=== PATIENT | female | born 1945 | race Caucasian/White ===

== ENCOUNTER → 2017-04-28 16:49 | Outpatient (CLI) | payer MEDICARE, OTHER, SELFPAY ==
[2017-04-28 18:41] LABS: ALB/GLOB Ratio 0.9 RATIO (0.9-2.4); AST(SGOT) 14 U/L (15-37); Alanine Aminotransfer ALT/SGPT 20 U/L (13-56); Albumin, Serum 3.3 g/dL (3.2-5.0); Alkaline Phosphatase 59 U/L (45-117); Anion Gap 10 (5-15); BUN 49 mg/dL (7-18); BUN/Creat Ratio 30.2 RATIO (10-20); Chloride 107 mmol/L (98-107); Creatinine, Serum 1.62 mg/dL (0.55-1.02); EST Glomerular Filtration Rate 33 mL/min (>60); Est Glom Filt Rate - Afr Amer 40 mL/min (>60); Globulin 3.5 g/dL (2.2-4.2); Glucose 83 mg/dL (74-106); Potassium 4.4 mmol/L (3.5-5.1); Protein, Total 6.8 g/dL (6.4-8.2); Sodium Level 144 mmol/L (136-145); Thyroid Stim Hormone (TSH) 2.14 uIU/mL (0.358-3.74)
== END ==
PROVIDERS: Family Provider Family Medicine; PCP Family Medicine; Visit Provider Family Medicine
DX: R60.9 Edema, unspecified (principal); E03.9 Hypothyroidism, unspecified
CPT/HCPCS: 36415; 80053; 84443

== ENCOUNTER → 2017-05-19 11:08 | Outpatient (CLI) | payer MEDICARE, OTHER, SELFPAY ==
[2017-05-19 12:48] LABS: Hematocrit 37.6 % (37-47); Hemoglobin 12.2 g/dl (12.0-15.0); Mean Corp Hgb Conc 32.4 g/gl (32-36); Mean Corpuscular Hgb 30.7 pg (27.0-32.0); Mean Corpuscular Volume 94.5 fL (81-99); Platelet Count 195 K/mm3 (150-450); RBC Distribution Width CV 12.8 % (11.6-14.6); Red Blood Count 3.98 M/mm3 (4.2-5.4); White Blood Count 7.9 K/mm3 (4.4-11.0)
[2017-05-19 12:56] LABS: Albumin, Serum 3.5 g/dL (3.2-5.0); BUN 57 mg/dL (7-18); BUN/Creat Ratio 28.9 RATIO (10-20); Calcium,Total 9.3 mg/dL (8.5-10.1); Chloride 101 mmol/L (98-107); Creatinine, Serum 1.97 mg/dL (0.55-1.02); EST Glomerular Filtration Rate 26 mL/min (>60); Est Glom Filt Rate - Afr Amer 32 mL/min (>60); Glucose 90 mg/dL (74-106); Potassium 3.9 mmol/L (3.5-5.1); Scan Indicated on CBC? Y/N NO; Sodium Level 141 mmol/L (136-145)
[2017-05-19 13:01] LABS: Vitamin D,25 Hydroxy 58.1 ng/mL (29.95-100.01)
[2017-05-19 14:02] LABS: PTHIN 41.9 pg/mL (18.4-80.1)
[2017-05-19 21:19] LABS: Protein:Creat Ratio 95 mg/g CRE (0-200)
== END ==
PROVIDERS: Family Provider Family Medicine; PCP Family Medicine; Visit Provider Internal Medicine Nephrology
DX: N18.3 Chronic kidney disease, stage 3 (moderate) (principal)
CPT/HCPCS: 36415; 80069; 82306; 82570; 83970; 84156; 85027

== ENCOUNTER → 2017-06-10 09:32 | Outpatient (CLI) | payer MEDICARE, OTHER, SELFPAY ==
[2017-06-10 10:39] LABS: Anion Gap 9 (5-15); BUN 31 mg/dL (7-18); BUN/Creat Ratio 20.4 RATIO (10-20); Chloride 104 mmol/L (98-107); Creatinine, Serum 1.52 mg/dL (0.55-1.02); EST Glomerular Filtration Rate 36 mL/min (>60); Est Glom Filt Rate - Afr Amer 43 mL/min (>60); Glucose 136 mg/dL (74-106); Potassium 4.4 mmol/L (3.5-5.1); Sodium Level 142 mmol/L (136-145)
== END ==
PROVIDERS: Family Provider Family Medicine; PCP Family Medicine; Visit Provider Internal Medicine Nephrology
DX: N18.3 Chronic kidney disease, stage 3 (moderate) (principal); D32.9 Benign neoplasm of meninges, unspecified
CPT/HCPCS: 36415; 80048

== ENCOUNTER → 2017-06-28 10:02 | Outpatient (CLI) | payer MEDICARE, OTHER, SELFPAY ==
[2017-06-28 11:08] LABS: Anion Gap 9 (5-15); BUN 29 mg/dL (7-18); BUN/Creat Ratio 19.1 RATIO (10-20); Calcium,Total 9.3 mg/dL (8.5-10.1); Chloride 108 mmol/L (98-107); Creatinine, Serum 1.52 mg/dL (0.55-1.02); EST Glomerular Filtration Rate 36 mL/min (>60); Est Glom Filt Rate - Afr Amer 43 mL/min (>60); Glucose 126 mg/dL (74-106); Sodium Level 145 mmol/L (136-145)
== END ==
PROVIDERS: Family Provider Family Medicine; PCP Family Medicine; Visit Provider Internal Medicine Nephrology
DX: N18.3 Chronic kidney disease, stage 3 (moderate) (principal)
CPT/HCPCS: 36415; 80048

== ENCOUNTER → 2017-07-06 12:42 | Outpatient (CLI) | payer MEDICARE, OTHER, SELFPAY ==
--- NOTE | 2017-07-06 12:51 | MRI_ITS ---
STUDY: MRI BRAIN WITH AND WITHOUT CONTRAST REASON FOR EXAM: Female, 72 years old. Tumor check-up, gamma knife 12/03/17, no new comlpaints. TECHNIQUE: Standardized multiplanar fat and water weighted pulse sequences were obtained. 9 ml of Gadavist contrast material was administered intravenously for the contrast portion of the examination. COMPARISON: October 22, 2016 FINDINGS: Normal size of the ventricles and extra-axial spaces for the patient's age. There are multiple white matter hyperintensities, distributed throughout the deep white matter tracts of the cerebral hemispheres, consistent with moderate chronic white matter ischemic changes. Normal bilateral basal ganglia. Normal thalami. There is no extra-axial fluid accumulation. Normal flow voids within the major intracranial circulation suggesting patency by spin echo criteria. Normal venous enhancement. Again noted is a the right CP angle/trigeminal cave enhancing mass without change since the prior examination, most consistent with meningioma. There is mild mass effect on the adjacent nate. There is no edema. Normal sella turcica, pituitary gland, infundibular stalk, optic chiasm and hypothalamus. Normal tectal plate and pineal gland. There are chronic white matter ischemic changes of the nate. The midbrain and medulla are otherwise normal. Normal cerebellum. Normal basal cisterns. Normal bilateral temporal bones. Normal bilateral internal auditory canals. MRI/Brain W/WO Contrast IMPRESSION: Stable right CP angle/Meckel's cave likely meningioma. Electronically Signed: Domenic Padilla MD at 13:10 EDT Tel , Service support ,
== END ==
PROVIDERS: Family Provider Family Medicine; PCP Family Medicine
DX: D32.9 Benign neoplasm of meninges, unspecified (principal)
CPT/HCPCS: 70553; A9585

== ENCOUNTER 2017-07-25 18:51 | Emergency (ER) | payer MEDICARE, OTHER, SELFPAY ==
[2017-07-25 18:52] VITALS: BP 127/83; PULSE 96; RESP 16; TEMP 36.8; O2SAT 95; BMI 27.9
--- NOTE | 2017-07-25 19:32 | CT_ITS ---
STUDY: CT BRAIN WITHOUT CONTRAST REASON FOR EXAM: Female, 72 years old. Fall RADIATION DOSAGE (If Supplied By Facility): CTDIvol = ( 44.99 ) mGy, DLP = ( 796.11 ) mGycm TECHNIQUE: Transaxial CT imaging of the brain was performed without administration of intravenous contrast material. Individualized dose optimization techniques were used for this CT. COMPARISON: MRI dated 07/06/2017 FINDINGS: There is no acute bleed or infarct. There are stable chronic ischemic and atrophic changes. There are basal ganglia calcifications noted. The ventricles are normal in configuration. There is no hydrocephalus. The visualized paranasal sinuses are clear. The mastoid air cells are well aerated. There is no skull fracture. There is mild scalp soft tissue swelling in the left posterior parietal region. CT/Brain/Head without Contrast IMPRESSION: Stable chronic ischemic and atrophic changes. No acute intracranial abnormality. Mild scalp soft tissue swelling in the left posterior parietal region. Electronically Signed: Carlos Salcedo, at 20:15 EDT Tel , Service support ,
[2017-07-25 19:54] LABS: Absolute Lymphocyte Count 1.27 X10^3/ul (0.83-4.51); Absolute Neutrophil Count 8.1 X10^3/uL (2.0-7.7); Basophil# 0.02 X10^3/uL; Basophil% 0.2 % (0-1); Eosinophil# 0.14 X10^3/uL; Eosinophils% 1.3 % (0-5); Hematocrit 38.2 % (37-47); Hemoglobin 12.7 g/dl (12.0-15.0); Lymphocyte # 1.27 X10^3/ul (4.0); Lymphocyte % 12.2 % (19-41); Mean Corp Hgb Conc 33.2 g/gl (32-36); Mean Corpuscular Hgb 30.5 pg (27.0-32.0); Mean Corpuscular Volume 91.6 fL (81-99); Mean Platelet Vol. 10.7 fl (6.2-12.0); Monocyte% 8.6 % (0-10); Neutrophil # 8.06 X10^3/uL (2.7-7.7); Neutrophil % 77.5 % (47-70); POSITIVE COUNT NO; POSITIVE DIFFERENTIAL NO; POSITIVE MORPHOLOGY NO; Platelet Count 144 K/mm3 (150-450); RBC Distribution Width CV 13.5 % (11.6-14.6); RBC Distribution Width SD 44.3 fl (35.1-43.9); Red Blood Count 4.17 M/mm3 (4.2-5.4); White Blood Count 10.4 K/mm3 (4.4-11.0)
[2017-07-25 20:02] LABS: Anion Gap 9 (5-15); BUN 39 mg/dL (7-18); BUN/Creat Ratio 25.7 RATIO (10-20); Calcium,Total 9.4 mg/dL (8.5-10.1); Chloride 103 mmol/L (98-107); Creatinine, Serum 1.52 mg/dL (0.55-1.02); EST Glomerular Filtration Rate 36 mL/min (>60); Est Glom Filt Rate - Afr Amer 43 mL/min (>60); Estimated Creatinine Clearance 32.76 ml/min; Glucose 89 mg/dL (74-106); Potassium 3.9 mmol/L (3.5-5.1); Sodium Level 140 mmol/L (136-145)
[2017-07-25 20:11] VITALS: BP 112/65; BP 133/80; BP 154/71; PULSE 102; PULSE 103; PULSE 97
--- NOTE | 2017-07-25 20:18 | ED.DCSUM_ITS ---
- ER Visit Summary Date of Service: 07/25/17 Chief Complaint: Fall and head injury on Plavix History of Present Illness: The patient is a 72 F history of insulin-dependent diabetes, CAD with cardiac stent and known renal insufficiency and known meningioma. Next field patient was in her kitchen on Wednesday fell hit her head on the counter. No LOC. She was not evaluated that time. She states she did not have a syncopal event. She also hit her right great toe when she fell. And right shoulder. Physical Examination: Well-appearing older female. Vital signs are stable afebrile. H EENT exam pupils round reactive light. No signs of facial trauma. Posterior midline of her scalp there is a laceration with dried blood. It is not actively bleeding. Minimally tender. Currently there is no significant hematoma but reportedly per the patient there was. C-spine nontender. Trachea midline. Full range of motion to her neck. Lungs clear to auscultation bilaterally. Heart regular rate and rhythm no murmur. Rate in 90s. Chest wall nontender. Abdomen soft nontender. Pelvic girdle intact. She is moving all 4 extremities. They are neurovascularly intact. Specifically the right clavicle and shoulder are nontender with normal range of motion. No deformity or tenderness. The right elbow and wrist and hand are nontender neurovascularly intact. Her right great toe is small bruising with a healing superficial laceration. There is no gross bony deformity or significant tenderness. Both lower extremities are neurovascularly intact without gross deformities otherwise. Back exam nontender. The cervical, thoracic and lumbar spine are nontender. Neurologically she is awake and alert. GCS of 15. NIH is 0. Test Results: CT of her brain shows no acute abnormality. No fracture nor intracranial bleed. As read by the radiologist reviewed by me. CBC was normal with an H&H of 12 and 38. Her platelet count was slightly low at 144,000 which I discussed and she can follow-up. Electrolytes are unremarkable. She has chronic renal insufficiency with a creatinine 1.52 similar to prior chemistry panels. Orthostatic vital signs her blood pressure did drop but she was completely asymptomatic. Nurses also ambulated patient and she did well. Emergency Department Course and Treatment: Repeat exam patient is doing well at 1945. Once her CAT scan reading returns she will be discharged. Treatment Plan: Follow up with her primary care physician as needed. Disposition: Discharge Impression: Acute fall with closed head injury on Plavix Posterior scalp laceration healing. Right great toe contusion This note was generated with [employer] dictation software. It may contain incorrect words, spelling, and punctuation that were not noted in review of the chart prior to signing ED Disposition - Plan for ED Patient: Chief Complaint: Fall Referrals: Twan Coy MD [Primary Care Provider] -
--- NOTE | 2017-07-25 20:18 | ED.DEP ---
ED Disposition - Plan for ED Patient: Disposition: Home or Assisted Living Chief Complaint: Fall Instructions: ED Head Injury Closed Referrals: Twan Coy MD [Primary Care Provider] - 3-5 Days if not improving Additional Instructions: Labs today were basically unremarkable except for a platelet count of 144,000. That is just below normal. You can have that rechecked in several weeks. Follow-up your primary care physician as needed.
[2017-07-25 20:55] VITALS: BP 163/77; PULSE 95; RESP 16; O2SAT 95
== END 2017-07-25 21:00 | disposition home or self-care (01) ==
PROVIDERS: Emergency Provider Emergency Medicine; Family Provider Family Medicine; PCP Family Medicine
DX: S01.01XA Laceration without foreign body of scalp, initial encounter (principal); S90.111A Contusion of right great toe without damage to nail, initial encounter; S91.111A Laceration without foreign body of right great toe without damage to nail, initial encounter; R40.2410 Glasgow coma scale score 13-15, unspecified time; W19.XXXA Unspecified fall, initial encounter; Y93.9 Activity, unspecified; Y92.89 Other specified places as the place of occurrence of the external cause; I25.10 Atherosclerotic heart disease of native coronary artery without angina pectoris; D32.9 Benign neoplasm of meninges, unspecified; E11.22 Type 2 diabetes mellitus with diabetic chronic kidney disease; I12.9 Hypertensive chronic kidney disease with stage 1 through stage 4 chronic kidney disease, or unspecified chronic kidney disease; N18.3 Chronic kidney disease, stage 3 (moderate); Z95.5 Presence of coronary angioplasty implant and graft; Z90.710 Acquired absence of both cervix and uterus; Z90.722 Acquired absence of ovaries, bilateral; Z79.02 Long term (current) use of antithrombotics/antiplatelets; Z79.4 Long term (current) use of insulin; Z79.899 Other long term (current) drug therapy
CPT/HCPCS: 70450; 80048; 85025; 99284; A4216

== ENCOUNTER → 2017-07-30 09:28 | Outpatient (CLI) | payer MEDICARE, OTHER, SELFPAY ==
--- NOTE | 2017-07-30 09:28 | DT_ITS ---
This patient was seen during an EMR downtime July 26, 2017 - August 02, 2017. This patient may have a combination of paper and electronic documentation or all paper documentation. All documentation is viewable within the e-chart portion of [facility] for each patient visit.
[2017-07-30 11:14] LABS: Erythrocyte Sedimentation Rate 13 mm/hr (0-30)
[2017-07-30 14:49] LABS: Rheumatoid Factor < 10.0 IU/mL (<15); Thyroid Stim Hormone (TSH) 3.66 uIU/mL (0.358-3.74)
[2017-08-02 10:07] LABS: HIV - WCH Non-Reactive (Nonreactive); Vitamin B12 637 pg/mL (211-911)
[2017-08-06 16:11] LABS: Immunoglobulin A 218 mg/dL (64-422); Immunoglobulin G 683 mg/dL (700-1600); Immunoglobulin M 67 mg/dL (26-217); PROEL- A/G Ratio 1.1 (0.7-1.7); PROEL- Albumin 3.3 g/dL (2.9-4.4); PROEL- Alpha-1 Globulin 0.2 g/dL (0.0-0.4); PROEL- Alpha-2 Globulin 0.9 g/dL (0.4-1.0); PROEL- Gamma Globulin 0.7 g/dL (0.4-1.8); PROEL- Globulin, Total 2.9 g/dL (2.2-3.9); PROEL- TOTAL PROTEIN 6.2 g/dL (6.0-8.5)
[2017-08-06 18:18] LABS: Hep C Antibodies 0.1 s/co ratio (0.0-0.9)
== END ==
PROVIDERS: Family Provider Family Medicine; PCP Family Medicine; Visit Provider Psychiatry & Neurology Neurology
DX: D32.9 Benign neoplasm of meninges, unspecified (principal); G50.0 Trigeminal neuralgia; G62.9 Polyneuropathy, unspecified
CPT/HCPCS: 36415; 82607; 82746; 82784; 84165; 84443; 85652; 86038; 86235; 86334; 86431; 86703; 86803

== ENCOUNTER 2017-09-13 03:12 | Emergency (ER) | payer MEDICARE, OTHER, SELFPAY ==
[2017-09-13 03:13] VITALS: BP 148/61; PULSE 80; RESP 18; TEMP 36.6; O2SAT 96; BMI 35.4
--- NOTE | 2017-09-13 03:20 | ED.DCSUM_ITS ---
- ER Visit Summary Date of Service: 09/13/17 Chief Complaint: Left wrist injury History of Present Illness: The patient is a 72 F presents to the emergency department left wrist injury. Patient was in her normal state of health. She was going to bed tonight. She thought that she was sitting on the bed, but was too far away. She ended up falling. She fell onto the wall and caught herself with an outstretched left wrist. She had immediate pain and noticed deformity. She did not strike her head. She denies other injury. Squad arrived and placed in a vacuum splint. She was brought here for further evaluation. Physical Examination: Afebrile, vitals unremarkable. Well-appearing female no acute distress. GCS 15. Examination of the left wrist: Patient does have abrasion over the ulnar styloid. There is no skin tenting. There is no evidence of open fracture. Pulses are normal. There is deformity. Anterior interosseous, posterior interosseous, ulnar nerve are preserved. Test Results: [] Emergency Department Course and Treatment: The patient did have obvious deformity of the left wrist. IV was established. She was given analgesics and antiemetics. X-ray does confirm distal radius fracture that is dorsally displaced and shortened. The patient underwent hematoma block with bupivacaine. Once anesthesia was achieved, I was able to reduce the fracture as best as I could. There did seem to be small fragments of her preventing complete reduction. However, the fracture was not out to length. The patient was placed in an AP splint and was very comfortable. Patient was discussed with orthopedics that she is likely going to need operative fixation. I did automobile club travel counselor her on signs and symptoms of compartment syndrome and reasons to return. She will be discharged home with analgesics and orthopedic follow-up. Treatment Plan: [] Disposition: Discharge Impression: 1. Distal radius fracture of the left wrist 2. Hematoma block 3. Fracture reduction 4. Splint by ED physician This note was generated with [employer] dictation software. It may contain incorrect words, spelling, and punctuation that were not noted in review of the chart prior to signing ED Disposition - Plan for ED Patient: Chief Complaint: Upper Extremity Injury Instructions: ED Fx Colles Wrist Redu Requ Prescriptions: Hydrocodone Bitart/Apap 5-325 [[place] 5MG-325MG] 1 tab PO Q6H PRN PRN 3 Days #10 tab PRN Reason: Pain Docusate Sodium [Colace] 100 mg PO DAILY #20 cap Referrals: Gaston Spears DO [STAFF PHYSICIAN] - (Call today)
[2017-09-13] MEDS: Ondansetron 4 MG/2 ML Vial IV (03:26)
[2017-09-13] MEDS: Morphine 4 MG/ML Syringe IV (03:26)
--- NOTE | 2017-09-13 03:30 | RAD_ITS ---
STUDY: X-RAY - LEFT WRIST REASON FOR EXAM: Female, 72 years old. Fall. TECHNIQUE: 3 view(s) of the wrist were obtained. COMPARISON: None. FINDINGS: There is an oblique fracture through the distal radial metaphysis. The distal fracture fragment of the radius measures 3.1 x 2.8 cm and is displaced laterally nearly one complete shaft width, with foreshortening. There is apex medial angulation. Distal ulna is normal. No fracture identified involving the carpal bones. Soft tissue swelling. RAD/Wrist min 3 Views IMPRESSION: Significantly displaced fracture of the distal radial metaphysis. Electronically Signed: Miguel Giang MD at 3:43 EDT , Service support ,
--- NOTE | 2017-09-13 04:25 | RAD_ITS ---
STUDY: X-RAY - LEFT WRIST REASON FOR EXAM: Female, 72 years old. Post reduction. TECHNIQUE: 3 view(s) of the wrist were obtained. COMPARISON: September 13, 2017 at 3:28 am, FINDINGS: Overlying cast obscures fine bony detail. Significant improvement in the alignment of distal radius. There is now approximately one half shaft width dorsal lateral displacement of the distal radial fracture fragment and no significant angulation. The soft tissue structures are unremarkable. RAD/Wrist min 3 Views IMPRESSION: Fracture of the distal radial metaphysis with significantly improved alignment in a cast. Electronically Signed: Miguel Giang MD at 4:46 EDT , Service support ,
[2017-09-13 05:19] VITALS: BP 139/61; PULSE 84; RESP 20; O2SAT 97
--- NOTE | 2017-09-13 05:20 | ED.RN ---
THIS NURSE REVIEWED D/C INSTRUCTIONS WITH PT AND . BOTH VERBALIZED UNDERSTANDING OF INSTRUCTIONS. IV D/C. IV CATHETER INTACT. PT TOLERATED WELL. PT ASSISTED TO VEHICLE VIA W/C. PT GETTING INTO THE VEHICLE, PT RIGHT LEG GAVE OUT ON HER. PT ASSISTED TO THE GROUND BY THIS NURSE AND THE PT . PT DENIES INJURY. PT ASSISTED OFF THE GROUND INTO THE CAR BY ER STAFF. PT DENIES NEED TO BE SEEN OR ADDITIONAL INJURIES. DR ARGELIA VANG.
== END 2017-09-13 05:23 | disposition home or self-care (01) ==
LOC: ED 03:36
PROVIDERS: Emergency Provider Emergency Medicine; Family Provider Family Medicine; PCP Family Medicine
DX: S52.502A Unspecified fracture of the lower end of left radius, initial encounter for closed fracture (principal); S60.812A Abrasion of left wrist, initial encounter; W06.XXXA Fall from bed, initial encounter; Y93.9 Activity, unspecified; Y92.9 Unspecified place or not applicable; I25.10 Atherosclerotic heart disease of native coronary artery without angina pectoris; E11.9 Type 2 diabetes mellitus without complications; I10 Essential (primary) hypertension; Z79.4 Long term (current) use of insulin; Z79.02 Long term (current) use of antithrombotics/antiplatelets; Z79.899 Other long term (current) drug therapy
CPT/HCPCS: 25605; 73110; 76000; 96374; 96375; 99285; J2405

== ENCOUNTER 2017-09-20 06:04 | Day surgery (SDC) | payer MEDICARE, OTHER, SELFPAY ==
--- NOTE | 2017-09-20 06:16 | EKG12_ITS ---
Test Reason : PRE-OP Blood Pressure : / mmHG Vent. Rate : 083 BPM Atrial Rate : 091 BPM P-R Int : 000 ms QRS Dur : 098 ms QT Int : 398 ms P-R-T Axes : 000 -50 010 degrees QTc Int : 467 ms Accelerated Junctional rhythm Left anterior fascicular block Voltage criteria for left ventricular hypertrophy Nonspecific ST abnormality Abnormal ECG Confirmed by RJ RUIZ, LORENE ([id number]), design editor MAYURI CADE ([id number]) on 09/27/2017 4:10:01 PM Referred By: Gaston Spears Confirmed By:LORENE DE LA ROSA MD
[2017-09-20 06:23] VITALS: BP 122/72; PULSE 84; RESP 20; TEMP 36.4; O2SAT 95; BMI 36.1
[2017-09-20 06:56] LABS: Bedside Glucose 234 mg/dL (70-110)
[2017-09-20 06:59] LABS: Prothrombin Time (Protime)PT. 12.9 SECONDS (11.7-14.9)
--- NOTE | 2017-09-20 07:15 | RAD_ITS ---
STUDY: X-RAY - LEFT WRIST REASON FOR EXAM: Female, 72 years old. Intraoperative imaging for ORIF of the distal radius. TECHNIQUE: 4 cone-down view(s) of the wrist were obtained intraoperatively. COMPARISON: None. FINDINGS: Intraoperative imaging provided for open reduction internal fixation of the distal radial fracture utilizing screw and sideplate fixation device. Avulsion fracture of the ulnar styloid. Postoperative soft tissue changes. RAD/Wrist min 3 Views IMPRESSION: Intraoperative imaging provided for open reduction and internal fixation of the distal radial fracture. There is good alignment. Electronically Signed: Amandeep Dawkins MD at 14:31 EDT Tel [phone], Service support ,
--- NOTE | 2017-09-20 08:12 | DCINST_ITS ---
Discharge Diet: No Restrictions Discharge Activity: May Not Drive, May Shower - keep dressing clean and dry Ice area for (Minutes): 20 Keep extremity elevated above heart level: Left Arm Call your doctor if your incision/area has: Continuous Slow Oozing, Sudden Increased Bleeding, Increased Pain/ Swelling, Increased Redness, Foul Smelling Discharge Call your doctor if you observe: Fever of 101 or Higher, Coldness, Increased Pain, Numbness or Tingling, Change in Color Suture Line Care: Avoid Pulling/Pushing Cleanse incision/area with: Keep Dressing Clean & Dry Allergies/Adverse Reactions: Allergies adhesive tape Allergy (Verified 09/17/17 10:54) Rash Penicillins Allergy (Verified 09/17/17 10:54) Rash Medications to take at Discharge Clopidogrel Bisulfate [Plavix] 75 mg PO DAILY 09/12/16 Insulin Aspart [Novolog Flexpen (BK)] 10 units SC BREAKFAST 09/12/16 Insulin Aspart [Novolog Flexpen ([facility])] 20 units SC DINNER 09/12/16 Insulin Aspart [Novolog Flexpen ([facility])] 20 units SC LUNCH 09/12/16 Insulin Detemir [Levemir ([facility])] 30 units SC QHS 09/12/16 Levothyroxine [Synthroid] 100 mcg PO DAILY 09/12/16 Pravastatin [Pravachol] 80 mg PO QHS 09/12/16 Amitriptyline HCl 75 mg PO QHS 09/13/17 Calcium Carbonate/Vitamin D3 [Calcium 500+D Tablet Chew] 1,500 mg PO BID Cholecalciferol (Vitamin D3) [Vitamin D3] 1,000 unit PO BID 09/13/17 Docusate Sodium [Colace] 100 mg PO DAILY #20 cap 09/13/17 Fexofenadine HCl 180 mg PO DAILY 09/13/17 Hydrocodone Bitart/Apap 5-325 [[place] 5MG-325MG] 1 tab PO Q6H PRN PRN 3 Days #10 tab 09/13/17 Lisinopril 40 mg PO DAILY 09/13/17 Cyanocobalamin (Vitamin B-12) [Vitamin B-12] 500 mcg PO DAILY 09/17/17 Test Results: Test results from this visit will be discussed in further detail at your follow- up appointment, if applicable. Please Follow Up With: Gaston Spears, DO When: as scheduled
--- NOTE | 2017-09-20 08:12 | PCM.OPRPT ---
Report of Operation Date of Procedure: 09/20/17 Pre-Operative Diagnosis: Distal radius fracture left extra-articular Post-Operative Diagnosis: Same Surgery/Procedure Performed:: Open reduction with internal fixation of left distal radius Description of Surgical Findings:: Extra-articular displaced distal radius fracture press room supervisor: Jani Landon Type of Anesthesia:: General Anesthesiologist: Maurizio Mcleod Estimated Blood Loss (mL): 5 Fluids Replaced: See anesthesia report Description of Procedure: Implants: Synthes distal radius locking plate Indications: Patient sustained a fall onto an outstretched left upper extremity and sustained a displaced distal radius fracture. Patient has elected to have this surgically corrected. Risks benefits and alternatives were discussed Procedure description: Patient was greeted in the preoperative area. Patient's left upper extremity was marked with surgical marker. Preoperative antibiotics were administered. The patient was then taken or [address] 2 in stable condition. After adequate anesthesia was obtained and airway secured a well-padded tourniquet was placed the patient's left upper extremity. The arm was prepped and draped in usual sterile fashion. Surgical times performed surgery was commenced. Standard volar approach of Juan was performed. Incision was planned and carried out overlying the flexor carpi radialis. Incision was made with a 15 blade and dissection was then carried down to the flexor tendon sheath of the FCR. The tendon sheath was opened and the FCR was retracted radially. The roof of the flexor tendon sheath was opened. Blunt dissection was then carried down to the pronator quadratus on the volar aspect of the radius. The pronator quadratus was sharply removed off of the radial border of the radius and retracted medially. Wheat [place] retractor was then placed exposing the volar aspect of the distal radius. Fracture was noted and fibrous tissue was removed from the fracture site. A reduction maneuver was performed and the fracture was manipulated until anatomic. A plate was then placed on the volar aspect of the radius. This was provisionally fixated to the distal radius with K wires. Biplanar fluoroscopic imaging was then used to ensure appropriate placement of the plate on the distal radius. Once this was confirmed a bicortical distal nonlocking screw was then placed in order to reduce the plate to the bone. Once this was placed and confirmed to be appropriate depth as well as placement with respect to the articular surface the remaining screw holes of the plate were then placed in a locking type fashion. Excellent control of the distal fracture was obtained with the screws. The plate was then reduced to the proximal aspect of the radius thus restoring the patient's radial inclination height and tilt. 3 screws were placed proximally excellent purchase was obtained. Final fluoroscopic imaging was obtained. Irrigation was performed and the pronator quadratus was then closed with 2-0 Vicryl followed by a layered closure of the wound. A well-padded volar splint was applied and tourniquet was deflated. Patient was taken to the recovery room in stable condition. Physician workforce development assistant was integral in all portions of this procedure. They assisted with positioning the patient, draping the extremity, holding retractors, closing the wound, and applying the dressing. This was all done under my direct supervision. The physician workforce development assistant was essential for a successful, efficient surgery. Postoperatively: We will remove Ortho-Glass dressing at approximately 2 weeks and sutures. At that point will place in a removable brace or thermoplastic splint and initiate physical therapy no lifting greater than 2 pounds for approximately 6 weeks - Admit VTE Documentation VTE Present on Admission: Yes VTE Mechan Device Prophylaxis: SCD's VTE Pharm Prophylaxis ordered?: No
--- NOTE | 2017-09-20 08:15 | OP.PCM_ITS ---
Report of Operation Date of Procedure: 09/20/17 Pre-Operative Diagnosis: Distal radius fracture left extra-articular Post-Operative Diagnosis: Same Surgery/Procedure Performed:: Open reduction with internal fixation of left distal radius Description of Surgical Findings:: Extra-articular displaced distal radius fracture glue mixer: Jani Landon Type of Anesthesia:: General Anesthesiologist: Maurizio Mcleod Estimated Blood Loss (mL): 5 Fluids Replaced: See anesthesia report Description of Procedure: Implants: Synthes distal radius locking plate Indications: Patient sustained a fall onto an outstretched left upper extremity and sustained a displaced distal radius fracture. Patient has elected to have this surgically corrected. Risks benefits and alternatives were discussed Procedure description: Patient was greeted in the preoperative area. Patient's left upper extremity was marked with surgical marker. Preoperative antibiotics were administered. The patient was then taken or [address] 2 in stable condition. After adequate anesthesia was obtained and airway secured a well-padded tourniquet was placed the patient's left upper extremity. The arm was prepped and draped in usual sterile fashion. Surgical times performed surgery was commenced. Standard volar approach of Juan was performed. Incision was planned and carried out overlying the flexor carpi radialis. Incision was made with a 15 blade and dissection was then carried down to the flexor tendon sheath of the FCR. The tendon sheath was opened and the FCR was retracted radially. The roof of the flexor tendon sheath was opened. Blunt dissection was then carried down to the pronator quadratus on the volar aspect of the radius. The pronator quadratus was sharply removed off of the radial border of the radius and retracted medially. [place] retractor was then placed exposing the volar aspect of the distal radius. Fracture was noted and fibrous tissue was removed from the fracture site. A reduction maneuver was performed and the fracture was manipulated until anatomic. A plate was then placed on the volar aspect of the radius. This was provisionally fixated to the distal radius with K wires. Biplanar fluoroscopic imaging was then used to ensure appropriate placement of the plate on the distal radius. Once this was confirmed a bicortical distal nonlocking screw was then placed in order to reduce the plate to the bone. Once this was placed and confirmed to be appropriate depth as well as placement with respect to the articular surface the remaining screw holes of the plate were then placed in a locking type fashion. Excellent control of the distal fracture was obtained with the screws. The plate was then reduced to the proximal aspect of the radius thus restoring the patient's radial inclination height and tilt. 3 screws were placed proximally excellent purchase was obtained. Final fluoroscopic imaging was obtained. Irrigation was performed and the pronator quadratus was then closed with 2-0 Vicryl followed by a layered closure of the wound. A well-padded volar splint was applied and tourniquet was deflated. Patient was taken to the recovery room in stable condition. Physician assistant unit forester was integral in all portions of this procedure. They assisted with positioning the patient, draping the extremity, holding retractors , closing the wound, and applying the dressing. This was all done under my direct supervision. The physician assistant unit forester was essential for a successful, efficient surgery. Postoperatively: We will remove Ortho-Glass dressing at approximately 2 weeks and sutures. At that point will place in a removable brace or thermoplastic splint and initiate physical therapy no lifting greater than 2 pounds for approximately 6 weeks - Admit VTE Documentation VTE Present on Admission: Yes VTE Mechan Device Prophylaxis: SCD's VTE Pharm Prophylaxis ordered?: No
[2017-09-20] MEDS: Bupivacaine Mpf 0.5% 30 ML VIAL (08:20)
[2017-09-20 08:43] VITALS: BP 121/49; BP 122/72; PULSE 69; RESP 18; TEMP 36.2; O2SAT 93
[2017-09-20 08:45] VITALS: BP 122/72; BP 124/60; PULSE 65; RESP 18; O2SAT 90
[2017-09-20 09:00] VITALS: BP 122/72; BP 139/127; PULSE 69; RESP 18; O2SAT 93
[2017-09-20 09:11] LABS: Bedside Glucose 244 mg/dL (70-110)
[2017-09-20 09:12] VITALS: BP 122/72; BP 150/62; PULSE 66; RESP 18; TEMP 36.1; O2SAT 94
[2017-09-20 09:35] VITALS: BP 122/72
== END 2017-09-20 09:45 | disposition home or self-care (01) ==
LOC: SDC 06:04 → AC 06:05
PROVIDERS: Anesthesiology; Family Provider Family Medicine; PCP Family Medicine; Visit Provider Orthopaedic Surgery
PROC: (CPT 25607; principal; 2017-09-20 07:00)
DX: S52.552A Other extraarticular fracture of lower end of left radius, initial encounter for closed fracture (principal); W19.XXXA Unspecified fall, initial encounter; Y93.9 Activity, unspecified; Y92.9 Unspecified place or not applicable; Z79.899 Other long term (current) drug therapy; Z79.4 Long term (current) use of insulin; Z79.02 Long term (current) use of antithrombotics/antiplatelets; E07.9 Disorder of thyroid, unspecified; E66.9 Obesity, unspecified; Z68.35 Body mass index [BMI] 35.0-35.9, adult; I12.9 Hypertensive chronic kidney disease with stage 1 through stage 4 chronic kidney disease, or unspecified chronic kidney disease; E11.22 Type 2 diabetes mellitus with diabetic chronic kidney disease; N18.3 Chronic kidney disease, stage 3 (moderate); D64.9 Anemia, unspecified; Z85.42 Personal history of malignant neoplasm of other parts of uterus; Z87.891 Personal history of nicotine dependence
CPT/HCPCS: 01830; 25607; 36415; 73110; 76000; 82962; 85610; 85730; 93005; C1713; J7120; J2405

== ENCOUNTER 2017-12-15 09:56 | Emergency (ER) | payer MEDICARE, OTHER, SELFPAY ==
[2017-12-15 09:58] VITALS: BP 133/69; PULSE 94; RESP 16; TEMP 36.1; O2SAT 98; BMI 35.6
--- NOTE | 2017-12-15 10:13 | CT_ITS ---
STUDY: CT BRAIN WITHOUT CONTRAST REASON FOR EXAM: Female, 72 years old. Five-day history of frontal headaches. RADIATION DOSAGE (If Supplied By Facility): CTDIvol = ( 44.99 ) mGy, DLP = ( 779.24 ) mGycm TECHNIQUE: Transaxial CT imaging of the brain was performed without administration of intravenous contrast material. Individualized dose optimization techniques were used for this CT. COMPARISON: Comparison is made with prior study dated July 25, 2017. FINDINGS: Normal soft tissue structures. There is hyperostosis frontalis internus. There is mild cerebral atrophy with widening of the extra-axial spaces and ventricular dilatation. There are areas of decreased attenuation within the white matter tracts of the supratentorial brain, consistent with microvascular disease changes. There are small punctate calcifications of the basal ganglia which are seen in the aging brain as a normal variant. Normal brainstem. Normal cerebellum. There is no intracranial hemorrhage. There are no findings of an acute ischemic infarction. Normal visualized paranasal sinuses. CT/Brain/Head without Contrast IMPRESSION: Chronic involutional changes of the brain. Electronically Signed: Amandeep Dawkins MD at 10:46 EDT Tel [phone], Service support ,
--- NOTE | 2017-12-15 11:09 | ED.DCSUM_ITS ---
- ER Visit Summary Date of Service: 12/15/17 Chief Complaint: Headache History of Present Illness: The patient is a [address] Twan Coy. She reports that she has a frontal headache that began approximate 5 days ago and is gradually gotten worse. Is a sharp pain that is 9 and 10 at worst and 5-10 currently. Is worsened by nothing. She is taken Tylenol, Sudafed, and ibuprofen without relief. Patient denies any photophobia. No nasal congestion. No recent trauma. No photophobia. No change in her vision. No fever or chills. No numbness or weakness. No nausea or vomiting. Physical Examination: Vitals: Stable. Afebrile. General: Well-nourished and well-developed. Head: Normocephalic atraumatic. Neck: Supple, no lymphadenopathy. No JVD. Nontender. Cardiovascular: Regular rate and rhythm. No murmurs. Respiratory: No respiratory distress. Clear to auscultation bilaterally. Abdominal: Soft, nontender, nondistended, normal bowel sounds. No guarding, rebound, or peritoneal signs. Back: Nontender. Extremities: Nontender, no edema. Skin: Normal color, no rash. Neurologic: Alert and oriented ?3. Cranial nerves II through XII are intact. Normal strength and sensation. Psych: Normal affect. Test Results: CT brain shows no acute disease. Emergency Department Course and Treatment: Patient refused pain medications and is resting comfortably. Treatment Plan: Patient will be discharged with 10 [place] and Colace. Instructed to follow-up Dr. Coy in 2 days as previously scheduled. Return to the emergency department for any worsening symptoms. Disposition: To home in improved and stable condition. Impression: 1. Cephalgia. This note was generated with [employer] Interactive dictation software. It may contain incorrect words, spelling, and punctuation that were not noted in review of the chart prior to signing ED Disposition - Plan for ED Patient: Chief Complaint: Headache Instructions: ED Cephalgia Unspecified Prescriptions: Hydrocodone Bitart/Apap 5-325 [[place] 5MG-325MG] 1 tablet PO Q4H PRN PRN 2 Days #10 tablet PRN Reason: Pain Docusate Sodium [Colace] 100 mg PO DAILY #20 capsule Referrals: Twan Coy MD [Primary Care Provider] - Keep Thomas appointment
== END 2017-12-15 11:12 | disposition home or self-care (01) ==
PROVIDERS: Emergency Provider Emergency Medicine; Family Provider Family Medicine; PCP Family Medicine
DX: R51 Headache (principal); I25.10 Atherosclerotic heart disease of native coronary artery without angina pectoris; E11.22 Type 2 diabetes mellitus with diabetic chronic kidney disease; I12.9 Hypertensive chronic kidney disease with stage 1 through stage 4 chronic kidney disease, or unspecified chronic kidney disease; N18.9 Chronic kidney disease, unspecified; E78.00 Pure hypercholesterolemia, unspecified; E03.9 Hypothyroidism, unspecified; I27.20 Pulmonary hypertension, unspecified; I34.1 Nonrheumatic mitral (valve) prolapse; Z95.5 Presence of coronary angioplasty implant and graft; Z79.4 Long term (current) use of insulin; Z79.02 Long term (current) use of antithrombotics/antiplatelets; Z79.899 Other long term (current) drug therapy
CPT/HCPCS: 70450; 99282

== ENCOUNTER → 2017-12-23 17:25 | Outpatient (CLI) | payer MEDICARE, OTHER, SELFPAY ==
[2017-12-23 18:02] LABS: Absolute Lymphocyte Count 1.61 X10^3/ul (0.83-4.51); Basophil# 0.02 X10^3/uL; Basophil% 0.2 % (0-1); Eosinophil# 0.13 X10^3/uL; Eosinophils% 1.6 % (0-5); Hematocrit 41.4 % (37-47); Hemoglobin 13.8 g/dl (12.0-15.0); Lymphocyte # 1.61 X10^3/ul (4.0); Lymphocyte % 19.5 % (19-41); Mean Corp Hgb Conc 33.3 g/gl (32-36); Mean Corpuscular Hgb 31.1 pg (27.0-32.0); Mean Corpuscular Volume 93.2 fL (81-99); Mean Platelet Vol. 10.9 fl (6.2-12.0); Monocyte# 0.51 X10^3/uL; Monocyte% 6.2 % (0-10); Neutrophil # 5.97 X10^3/uL (2.7-7.7); Neutrophil % 72.4 % (47-70); Platelet Count 173 K/mm3 (150-450); RBC Distribution Width CV 13.1 % (11.6-14.6); RBC Distribution Width SD 44.4 fl (35.1-43.9); Red Blood Count 4.44 M/mm3 (4.2-5.4); White Blood Count 8.3 K/mm3 (4.4-11.0)
[2017-12-23 18:06] LABS: POSITIVE COUNT NO; POSITIVE DIFFERENTIAL NO; POSITIVE MORPHOLOGY NO
[2017-12-23 18:15] LABS: Albumin, Serum 3.4 g/dL (3.2-5.0); BUN 25 mg/dL (7-18); BUN/Creat Ratio 21.2 RATIO (10-20); Calcium,Total 9.1 mg/dL (8.5-10.1); Chloride 106 mmol/L (98-107); Creatinine, Serum 1.18 mg/dL (0.55-1.02); EST Glomerular Filtration Rate 48 mL/min (>60); Est Glom Filt Rate - Afr Amer 58 mL/min (>60); Glucose 231 mg/dL (74-106); Phosphorus 2.7 mg/dL (2.5-4.9); Potassium 3.7 mmol/L (3.5-5.1); Sodium Level 143 mmol/L (136-145)
[2017-12-23 18:21] LABS: Microalbumin,Random Urine 68.4 mg/L (NO RANGE EST.); Microalbumin:Creatinine Ratio 49.6 mg/g CRE (<30 mg/g CRE)
[2017-12-23 18:23] LABS: PTHIN 25.3 pg/mL (18.4-80.1)
[2017-12-23 18:32] LABS: Vitamin D,25 Hydroxy 46.6 ng/mL (29.95-100.01)
== END ==
PROVIDERS: Family Provider Family Medicine; PCP Family Medicine; Referring Provider Internal Medicine Nephrology; Visit Provider Internal Medicine Nephrology
DX: N18.3 Chronic kidney disease, stage 3 (moderate) (principal); D63.1 Anemia in chronic kidney disease; N25.81 Secondary hyperparathyroidism of renal origin
CPT/HCPCS: 36415; 80069; 82043; 82306; 82570; 83970; 85025

== ENCOUNTER 2017-12-24 21:17 | Inpatient (IN) | payer MEDICARE, OTHER, SELFPAY ==
[2017-12-24] VITALS (8 sets, daily range): BP systolic 177–204; BP diastolic 62–104; PULSE 71–83; RESP 14–24; TEMP 36.8; O2SAT 95–100; BMI 34.2
[2017-12-24 21:31] LABS: Bedside Glucose 97 mg/dL (70-110)
--- NOTE | 2017-12-24 21:36 | EKG12_ITS ---
Test Reason : TIA SYMPTOMS Blood Pressure : / mmHG Vent. Rate : 077 BPM Atrial Rate : 074 BPM P-R Int : 000 ms QRS Dur : 102 ms QT Int : 342 ms P-R-T Axes : 000 -47 107 degrees QTc Int : 387 ms Atrial fibrillation Incomplete right bundle branch block Left anterior fascicular block Left ventricular hypertrophy with repolarization abnormality Abnormal ECG Confirmed by ALISA RUIZ, SHAKIRA ([id number]), city editor MAYURI CADE ([id number]) on 12/27/2017 3:19:53 PM Referred By: Kayleigh Acuña Confirmed By:SHAKIRA CUELLAR MD
--- NOTE | 2017-12-24 21:44 | CT_ITS ---
STUDY: CTA OF THE BRAIN REASON FOR EXAM: Female, 72 years old. Confusion. Headache. Difficulty following commands since 9:00 AM. RADIATION DOSAGE (If Supplied By Facility): CTDIvol = ( 27.83 ) mGy, DLP = ( 1511.84 ) mGycm TECHNIQUE: CT angiography was performed with a multi-detector CT scanner. Data acquisition was obtained from the skull base through the vertex following intravenous administration of 100 ml of Isovue-370. MIP images were reconstructed from the axial data set. Post-processing of the angiographic images was performed, with multiplanar reformation and 3D reconstruction. Individualized dose optimization techniques were used for this CT. COMPARISON: None. FINDINGS: Normal bilateral petrous carotid arteries. There is calcified plaque formation of the right cavernous carotid artery, without a cross-sectional luminal stenosis. There is calcified plaque formation of the left cavernous carotid artery, without a cross-sectional luminal stenosis. Normal right A1 segments of the anterior cerebral artery. Normal left A1 segments of the anterior cerebral artery. Normal intact anterior communicating artery (ACOM). Normal bilateral A2 segments of the anterior cerebral arteries. Normal right M1 and M2 segments of the middle cerebral arteries, with a normal M1 bifurcation. Normal left M1 and M2 segments of the middle cerebral arteries, with a normal M1 bifurcation. There is non-visualization of the right posterior communicating artery (PCOM). There is non-visualization of the left posterior communicating artery (PCOM). There is a small atretic left vertebral artery with a dominant right vertebral artery. Normal basilar artery with a normal basilar bifurcation. The visualized bilateral superior cerebellar (SCA) arteries are normal. Normal bilateral P1, P2 and visualized P3 segments of the posterior cerebral arteries. There is no demonstrated aneurysm of the [place]. There is no demonstrated abnormality of the visualized brain. CT/CTA Head W/WO Contrast IMPRESSION: Normal [place] without a demonstrated aneurysm or hemodynamically significant stenosis. Electronically Signed: Juan Ang DO at 23:25 EDT Tel [phone], Service support ,
--- NOTE | 2017-12-24 21:44 | CT_ITS ---
STUDY: CTA NECK WITH CONTRAST REASON FOR EXAM: Female, 72 years old. Headache. Confusion. RADIATION DOSAGE (If Supplied By Facility): CTDIvol = ( 27.83 ) mGy, DLP = ( 1511.84 ) mGycm TECHNIQUE: CT angiography with multi-detector data acquisition was performed from the aortic arch to the skull base following intravenous administration of 100ML ml of Isovue 370 contrast. MIP images were reconstructed from the axial data set. Post-processing of the angiographic images was performed, with multiplanar reformation and 3D reconstruction. Individualized dose optimization techniques were used for this CT. COMPARISON: None. FINDINGS: AORTIC ARCH: There is atherosclerotic calcific plaque formation of the aortic arch and great vessels arising from the aortic arch, without a hemodynamically significant stenosis. There is a normal origin of the brachiocephalic, left common carotid, and left subclavian arteries. RIGHT CAROTID ARTERIES: There is minimal atherosclerotic changes about the distal right common carotid artery without stenosis. Normal right common carotid bulb. Normal origin of the right internal carotid (ICA) artery without a hemodynamically significant stenosis. Normal visualized cervical portion of the right internal carotid artery. Normal origin of the right external carotid artery (ECA). LEFT CAROTID ARTERIES: Normal left common carotid artery (CCA). There is marked calcifications in the left carotid bulb with estimated greater than 70% stenosis. Normal origin of the left internal carotid (ICA) artery without a hemodynamically significant stenosis. Normal visualized cervical portion of the left internal carotid artery. Normal origin of the left external carotid artery (ECA). VERTEBRAL ARTERIES: Normal bilateral vertebral arteries. There are mild degenerative changes of the cervical spine. CT/CTA Neck W/WO Contrast IMPRESSION: 1. Question 70-80% stenosis of the left carotid bulb. 2. Minimal atherosclerotic changes of the distal right common carotid artery without stenosis. 3. No other evidence of vascular abnormality. Electronically Signed: Juan Ang DO at 23:34 EDT Tel [phone], Service support ,
[2017-12-24 21:48] LABS: Absolute Neutrophil Count 7.2 X10^3/uL (2.0-7.7); Basophil# 0.03 X10^3/uL; Basophil% 0.3 % (0-1); Eosinophil# 0.15 X10^3/uL; Eosinophils% 1.4 % (0-5); Hematocrit 40.2 % (37-47); Hemoglobin 13.2 g/dl (12.0-15.0); Lymphocyte % 20.2 % (19-41); Mean Corp Hgb Conc 32.8 g/gl (32-36); Mean Corpuscular Hgb 30.4 pg (27.0-32.0); Mean Corpuscular Volume 92.6 fL (81-99); Monocyte# 0.91 X10^3/uL; Monocyte% 8.7 % (0-10); Neutrophil % 69.2 % (47-70); Platelet Count 176 K/mm3 (150-450); RBC Distribution Width CV 13.2 % (11.6-14.6); Red Blood Count 4.34 M/mm3 (4.2-5.4); White Blood Count 10.4 K/mm3 (4.4-11.0)
--- NOTE | 2017-12-24 21:48 | ED.VISSUMM ---
- ER Visit Summary Date of Service: 12/24/17 Chief Complaint: Confusion History of Present Illness: The patient is a 72 F presenting with confusion and difficulty speaking. Her states that she had some confusion starting around 9 AM this morning. Around 6 PM this worsened. She had trouble getting words out. She states she has a headache which she has had for the past 4 weeks. She was seen in the ED last week for headache. She had no confusion or difficulty speaking at that time. She was given [place] for home. She states this helped but she has now run out of this medication. She denies weakness or numbness. Denies vision changes. Per EMS patient had difficulty answering basic questions. This has improved on arrival to the ED. Physical Examination: Vitals are stable. Patient is afebrile. Alert no acute distress. HEENT exam is unremarkable. Neck is supple. Lungs are clear and equal bilaterally. Heart is regular rate and rhythm. Abdomen is soft nontender nondistended. Extremities are unremarkable. Skin is warm and dry. No focal neurologic deficit. NIH 1 for LOC questions Remainder of exam is unremarkable. Emergency Department Course and Treatment: EKG is sinus rate 77, unchanged from previous. Chest x-ray shows no acute process. CBC, chemistries unremarkable other than BUN 30, creatinine 1.24. Urinalysis unremarkable. Troponin 0.034. CTA head shows normal [place] without a demonstrated aneurysm or hemodynamically significant stenosis. CTA neck shows Question 70-80% stenosis of the left carotid bulb. Minimal atherosclerotic changes of the distal right common carotid artery without stenosis. No other evidence of vascular abnormality. On re-evaluation, she is now alert and oriented x3, NIH 0. Headache is improved. Discussed with the hospitalist for admission. Disposition: Admission Impression: Expressive aphasia This note was generated with wunderloop dictation software. It may contain incorrect words, spelling, and punctuation that were not noted in review of the chart prior to signing ED Disposition - Plan for ED Patient: Chief Complaint: Neuro S/Sx Referrals: Twan Coy MD [Primary Care Provider] -
[2017-12-24 21:49] LABS: POSITIVE COUNT NO; POSITIVE DIFFERENTIAL NO; POSITIVE MORPHOLOGY NO
--- NOTE | 2017-12-24 21:51 | ED.DCSUM_ITS ---
- ER Visit Summary Date of Service: 12/24/17 Chief Complaint: Confusion History of Present Illness: The patient is a 72 F presenting with confusion and difficulty speaking. Her states that she had some confusion starting around 9 AM this morning. Around 6 PM this worsened. She had trouble getting words out. She states she has a headache which she has had for the past 4 weeks. She was seen in the ED last week for headache. She had no confusion or difficulty speaking at that time. She was given [place] for home. She states this helped but she has now run out of this medication. She denies weakness or numbness. Denies vision changes. Per EMS patient had difficulty answering basic questions. This has improved on arrival to the ED. Physical Examination: Vitals are stable. Patient is afebrile. Alert no acute distress. HEENT exam is unremarkable. Neck is supple. Lungs are clear and equal bilaterally. Heart is regular rate and rhythm. Abdomen is soft nontender nondistended. Extremities are unremarkable. Skin is warm and dry. No focal neurologic deficit. NIH 1 for LOC questions Remainder of exam is unremarkable. Emergency Department Course and Treatment: EKG is sinus rate 77, unchanged from previous. Chest x-ray shows no acute process. CBC, chemistries unremarkable other than BUN 30, creatinine 1.24. Urinalysis unremarkable. Troponin 0.034. CTA head shows normal [place] without a demonstrated aneurysm or hemodynamically significant stenosis. CTA neck shows Question 70-80% stenosis of the left carotid bulb. Minimal atherosclerotic changes of the distal right common carotid artery without stenosis. No other evidence of vascular abnormality. On re-evaluation, she is now alert and oriented x3, NIH 0. Headache is improved. Discussed with the hospitalist for admission. Disposition: Admission Impression: Expressive aphasia This note was generated with X[employer]is dictation software. It may contain incorrect words, spelling, and punctuation that were not noted in review of the chart prior to signing ED Disposition - Plan for ED Patient: Chief Complaint: Neuro S/Sx Referrals: Twan Coy MD [Primary Care Provider] -
[2017-12-24 21:53] LABS: International Normalized Ratio 0.9; Prothrombin Time (Protime)PT. 12.6 SECONDS (11.7-14.9)
[2017-12-24 21:54] LABS: Partial Thromboplast Time 24.7 Seconds (24.1-36.2)
[2017-12-24 22:02] LABS: Anion Gap 7 (5-15); BUN 30 mg/dL (7-18); BUN/Creat Ratio 24.2 RATIO (10-20); Calcium,Total 8.9 mg/dL (8.5-10.1); Chloride 107 mmol/L (98-107); Creatinine, Serum 1.24 mg/dL (0.55-1.02); EST Glomerular Filtration Rate 45 mL/min (>60); Est Glom Filt Rate - Afr Amer 54 mL/min (>60); Estimated Creatinine Clearance 31.48 ml/min; Glucose 96 mg/dL (74-106); Sodium Level 144 mmol/L (136-145)
--- NOTE | 2017-12-24 22:08 | RAD_ITS ---
STUDY: X-RAY CHEST REASON FOR EXAM: Female, 72 years old. Headache, confusion, expressive aphasia. TECHNIQUE: 1 view COMPARISON: None. FINDINGS: Lung fuentes are expanded without major consolidation, atelectasis or a substantial pleural effusion. [place] lobe of the right upper lobe, normal variation. Normal size heart. Normal mediastinum and joshua. Normal visualized pulmonary arteries. There is atherosclerotic calcification of the aortic arch with tortuosity. There are diffuse degenerative changes of the visualized thoracic spine with dextroscoliosis. Normal visualized ribs, clavicles, and shoulders. There is no demonstrated abnormality of the visualized soft tissue structures of the upper abdomen. RAD/Chest 1 View IMPRESSION: No acute cardiopulmonary findings. Negative for major consolidation, focal atelectasis, cardiomegaly or pleural effusion. Electronically Signed: Sandra Irving MD at 22:26 EDT , Service support ,
[2017-12-24 22:25] LABS: Bacteria 0 SEEN /hpf (None Seen); Glucose, Dipstick 50 mg/dl (Normal); Ketone-Dipstick Negative (Negative); Leukocyte Esterase-Dipstick 25 /ul (Negative); Nitrite-Dipstick Negative (Negative); Occult Blood-Urine 10 /ul (Negative); Protein-Dipstick 30 mg/dl (Negative); Red Blood Cells-Urine 0 SEEN /hpf (0-5); Specific Gravity, Urine 1.015 (1.002-1.030); Squamous Epithelial Cells - UA 0 SEEN /hpf (5-10); Urine Bilirubin Dipstick Negative (Negative); Urine Urobilinogen Normal (Normal); White Blood Cells 0 SEEN /hpf (0-5)
[2017-12-24 22:26] LABS: Color, Urine Yellow (Yellow); Urine Clarity Sl Cldy (Clear)
[2017-12-24 22:36] LABS: Hyaline Cast 5-10 SEEN /lpf (0-5)
[2017-12-24 22:37] LABS: Mucous, Urine 2+ /hpf (<or=2+)
[2017-12-24] MEDS: Morphine 4 MG/ML Syringe IV (23:02)
[2017-12-24] MEDS: Ondansetron 4 MG/2 ML Vial IV (23:02)
--- NOTE | 2017-12-24 23:53 | PCM.HP.STD ---
Problem List (1) Stroke-like symptoms Status: Acute History of Present Illness Date of Admission: 12/24/17 Chief Complaint: Confusion The patient is a 72 year old F with a significant history of hypothyroidism; CKD stage III; pulmonary hypertension; and trigeminal neuralgia who presents with confusion of 1 day. Associated with her symptoms is dysarthria. At the emergency department the patient noted that her confusion had improved disappeared and dysarthria resolved. Patient also complains of 2 weeks of headache. She was at the hospital 2 weeks ago and complained of headache. She reported she was given hydrocodone which she used for about 4 days and ran out. Currently uses Tylenol and topical peppermint ointment mixed with oil for her headache. Reportedly the topical regimen gives her some relief. Her headache is bifrontal. Her headache is persistent; and of severity 5 out of 10. Both head CT and neck CT done at the ED were unremarkable. Past Medical History Past Medical History (Chronic Problems): Chronic Problems (Last Reviewed 12/25/17 @ 00:42 by Manoj Deluna MD) CKD (chronic kidney disease) stage 3, GFR 30-59 ml/min (Chronic) Type 2 diabetes mellitus (Chronic) Essential hypertension (Chronic) Carotid artery stenosis (Chronic) Left Presence of stent in coronary artery (Chronic ~1999) PTCA/Stent to the LAD 1999 Atherosclerotic heart disease of [place] coronary artery without angina pectoris (Chronic) Hyperlipemia (Chronic) Hypothyroidism (Chronic) Medical History: Medical History (Last Reviewed 12/25/17 @ 00:42 by Manoj Deluna MD) Nonrheumatic aortic (valve) stenosis (Acute) I35.0 Pulmonary hypertension (Acute) I27.20 Nonrheumatic tricuspid (valve) insufficiency (Acute) I36.1 Nonrheumatic mitral (valve) insufficiency (Acute) I34.0 Nonrheumatic mitral (valve) prolapse (Acute) I34.1 CKD (chronic kidney disease) stage 3, GFR 30-59 ml/min (Chronic) N18.3 Type 2 diabetes mellitus (Chronic) E11.9 Essential hypertension (Chronic) I10 Carotid artery stenosis (Chronic) I65.29 Left Presence of stent in coronary artery (Chronic) Onset Date: ~1999 Z95.5 PTCA/Stent to the LAD 1999 Atherosclerotic heart disease of [place] coronary artery without angina pectoris (Chronic) I25.10 Hyperlipemia (Chronic) E78.5 Hypothyroidism (Chronic) E03.9 GERD (gastroesophageal reflux disease) K21.9 Trigeminal neuralgia G50.0 Meningioma D32.9 Allergies adhesive tape Allergy (Verified 12/24/17 21:47) Rash Penicillins Allergy (Verified 12/24/17 21:47) Rash Home Medications: Ambulatory Orders Medication Instructions Recorded Clopidogrel Bisulfate [Plavix] 75 mg PO DAILY 09/12/16 Insulin Aspart [Novolog Flexpen 10 units SUBCUT BREAKFAST 09/12/16 ([facility])] Insulin Aspart [Novolog Flexpen 20 units SUBCUT DINNER 09/12/16 ([facility])] Insulin Aspart [Novolog Flexpen 20 units SUBCUT LUNCH 09/12/16 ([facility])] Levothyroxine [Synthroid] 100 mcg PO DAILY 09/12/16 Pravastatin [Pravachol] 80 mg PO QHS 09/12/16 Calcium Carbonate/Vitamin D3 1,500 mg PO BID 09/13/17 [Calcium 500+D Tablet Chew] Cholecalciferol (Vitamin D3) 1,000 unit PO BID 09/13/17 [Vitamin D3] Fexofenadine HCl 180 mg PO DAILY 09/13/17 Cyanocobalamin (Vitamin B-12) 500 mcg PO DAILY 09/17/17 [Vitamin B-12] isosorbide mononitrate ER 60 mg 60 mg PO DAILY 12/01/17 tablet,extended release 24 hr carbamazepine 200 mg tablet 100 mg PO DAILY tab 12/02/17 ferrous sulfate 325 mg (65 mg 325 mg PO DAILY tab 12/02/17 iron) tablet insulin detemir (U-100) 100 40 unit SC QHS ml 12/02/17 unit/mL (3 mL) subcutaneous pen ondansetron HCl 4 mg tablet 4 mg PO .COMPLEX PRN tab 12/02/17 Docusate Sodium [Colace] 100 mg PO DAILY #20 capsule 12/15/17 Surgical History: Surgical History (Last Reviewed 12/25/17 @ 00:42 by Manoj Deluna MD) Presence of coronary angioplasty implant and graft Onset Date: ~1999 Z95.5 PTCA/Stent to the LAD 1999 History of cataract surgery Z98.49 History of hysterectomy Z90.710 History of right-sided carotid endarterectomy Z98.890 S/P wrist surgery Z98.890 ORIF Lives: Spouse/ Significant Other Smoking Status: Never smoker - *Family History Maternal Family History: Family History (Last Reviewed 12/25/17 @ 00:43 by Manoj Deluna MD) Mother Heart disease Paternal Family History: Family History (Last Reviewed 12/25/17 @ 00:43 by Manoj Deluna MD) Mother Heart disease Review of Systems Constitutional: Denies: Chills, Fever, Weight Change HEENT: Reports: Head Aches. Denies: Sinus Congestion, Sinus Drainage Cardiovascular: Denies: Chest Pain, Palpitations Respiratory: Denies: Cough, Shortness of breath at rest, Sputum production Gastrointestinal: Denies: Abdominal Pain, Nausea, Vomiting Genitourinary: Denies: Dysuria Musculoskeletal: Denies: Joint Pain, Joint Tenderness Skin: Denies: Rash, Wounds Neurological: Reports: Confusion. Denies: Focal weakness, Numbness, Tingling Psychiatric: Denies: Anxiety, Depression, Homicidal Ideations, Suicidal Ideations Hematologic/ Lymphatic: Denies: Easy Bruising, Easy Bleeding VTE Information - Inpt Only VTE Present on Admission: No VTE Mechan Device Prophylaxis: None VTE Pharm Prophylaxis ordered?: Yes Patient Problems: Active and Suspected Problems (Last Reviewed 12/25/17 @ 00:42 by Manoj Deluna MD) Stroke-like symptoms (Acute) - Physical Exam General: Alert, Oriented x3, Cooperative HEENT: Atraumatic, PERRLA, EOMI, Normocephalic Neck: Supple, No JVD, Negative Carotid Bruits Lungs: Clear to auscultation, Normal air movement Cardiovascular: Regular rate, No murmurs Abdomen: Bowel Sounds Present, Soft, Non Tender Extremities: No edema, Capillary Refill Less than 3 Seconds Skin: No rashes, No breakdown Musculoskeletal: No Tenderness to Palpation of Joints or Extremities Neurological: Cranial nerves II-XII grossly intact, Neuro grossly intact Psych/Mental Status: Normal Affect, Appropriate Vital Signs Temp Pulse Resp BP Pulse Ox 98.3 F 76 24 H 177/76 H 100 12/24/17 21:18 12/24/17 23:00 12/24/17 23:00 12/24/17 23:00 12/24/17 23:00 Oxygen Flow Rate (L/min) 2 Oxygen Delivery Method Nasal Cannula Weight: 84.8 kg Body Mass Index (BMI) 34.2 Finger Stick Blood Glucose 97 Laboratory Tests Past 24 Hrs 12/24/17 12/24/17 12/24/17 21:42 21:42 21:42 WBC 10.4 RBC 4.34 Hgb 13.2 Hct 40.2 MCV 92.6 MCH 30.4 MCHC 32.8 RDW 13.2 RDW Differential 44.0 H Plt Count 176 MPV 11.0 Immature Gran % (Auto) 0.200 Neut % (Auto) 69.2 Lymph % (Auto) 20.2 [place] % (Auto) 8.7 Eos % (Auto) 1.4 Baso % (Auto) 0.3 Absolute Neuts (auto) 7.2 Absolute Lymphs (auto) 2.10 Total Counted Not Reportable PT 12.6 INR 0.9 APTT 24.7 Sodium 144 Potassium 4.0 Chloride 107 Carbon Dioxide 30.0 Anion Gap 7 BUN 30 H Creatinine 1.24 H Estim Creat Clear Calc 31.48 Est GFR (MDRD) Af Amer 54 L Est GFR (MDRD) Non-Af 45 L BUN/Creatinine Ratio 24.2 H Glucose 96 Calcium 8.9 Troponin I 0.034 Urine Color Urine Clarity Urine pH Ur Specific [place] Urine Protein Urine Glucose (UA) Urine Ketones Urine Occult Blood Urine Nitrite Urine Bilirubin Urine Urobilinogen Ur Leukocyte Esterase Urine RBC Urine WBC Ur Squamous Epith Cells Urine Bacteria Hyaline Casts Urine Mucus 12/24/17 22:21 WBC RBC Hgb Hct MCV MCH MCHC RDW RDW Differential Plt Count MPV Immature Gran % (Auto) Neut % (Auto) Lymph % (Auto) [place] % (Auto) Eos % (Auto) Baso % (Auto) Absolute Neuts (auto) Absolute Lymphs (auto) Total Counted PT INR APTT Sodium Potassium Chloride Carbon Dioxide Anion Gap BUN Creatinine Estim Creat Clear Calc Est GFR (MDRD) Af Amer Est GFR (MDRD) Non-Af BUN/Creatinine Ratio Glucose Calcium Troponin I Urine Color Yellow Urine Clarity Sl Cldy Urine pH 5.0 Ur Specific [place] 1.015 Urine Protein 30 H Urine Glucose (UA) 50 H Urine Ketones Negative Urine Occult Blood 10 H Urine Nitrite Negative Urine Bilirubin Negative Urine Urobilinogen Normal Ur Leukocyte Esterase 25 H Urine RBC 0 SEEN Urine WBC 0 SEEN Ur Squamous Epith Cells 0 SEEN Urine Bacteria 0 SEEN Hyaline Casts 5-10 SEEN Urine Mucus 2+ POC Glucose 12/24/17 21:23 POC Glucose 97 Assessment/Plan All Active Problems (Last Reviewed 12/25/17 @ 00:42 by Manoj Deluna MD) Stroke-like symptoms (Acute) Nonrheumatic aortic (valve) stenosis (Acute) Pulmonary hypertension (Acute) Nonrheumatic tricuspid (valve) insufficiency (Acute) Nonrheumatic mitral (valve) insufficiency (Acute) Nonrheumatic mitral (valve) prolapse (Acute) The patient is a 72 year old F with a significant history of hypothyroidism; CKD stage III; pulmonary hypertension; and trigeminal neuralgia who presents with confusion; dysarthria and headache. Strokelike symptoms CT head and CT of neck unremarkable. MRI in a.m. Telemetry monitoring. Echocardiogram in a.m. Noted to have elevated blood pressure. Permissive hypertension with labetalol to keep blood pressure 220/120 Hemoglobin A1c and lipids ordered. Speech therapy, occupational therapy and physical therapy to work with patient. Patient on Plavix; continue Patient on pravastatin; continue. With her intractable headache and strokelike symptoms we will seek a neurology consult. Hypertension Blood pressure uncontrolled on admission. Because of strokelike symptoms; permissive hypertension ordered. Labetalol as above. Trend blood pressure Intractable headache. Differential diagnosis include headache secondary to hypertension; temporal arteritis; tension headache or other. Of note patient has has history of trigeminal neuralgia. Hydrocodone?APAP as needed for headache. ESR ordered. Neurology consult. Diabetes mellitus On presentation blood glucose was within goal. Her blood glucose was 96. She is on home regimen of NovoLog 10 units with breakfast; 20 units of lunch and 20 units of dinner; and Levemir 40 units nightly. Because her blood glucose was 96 on admission we will cut her Levemir to 20 units nightly; discontinue prandial insulin; and do correction scale insulin. CKD Stage 3 Creatinine on admission is stable at 1.24 DVT prophylaxis subcutaneous heparin. . Code Visit OBSV E&M: 65243 Initial observation care L3
[2017-12-25] VITALS (15 sets, daily range): BP systolic 122–159; BP diastolic 67–106; PULSE 51–74; RESP 14–16; TEMP 36.6–37; O2SAT 96–99; BMI 35.1
--- NOTE | 2017-12-25 00:41 | MRI_ITS ---
STUDY: MRI BRAIN WITHOUT CONTRAST REASON FOR EXAM: Female, 72 years old. frontal headache x 2 weeks. TECHNIQUE: Standardized multiplanar fat and water weighted pulse sequences were obtained. COMPARISON: July 06, 2017 FINDINGS: There is mild cerebral atrophy with widening of the extra-axial spaces and ventricular dilatation. There are multiple white matter hyperintensities, distributed throughout the deep white matter tracts of the cerebral hemispheres, consistent with moderate chronic white matter ischemic changes. Normal bilateral basal ganglia. Normal thalami. Normal flow voids within the major intracranial circulation suggesting patency by spin echo criteria. Normal sella turcica, pituitary gland, infundibular stalk, optic chiasm and hypothalamus. Normal tectal plate and pineal gland. Again noted is a the right CP angle/trigeminal cave enhancing mass without change since the prior examination, most consistent with meningioma. There is mild mass effect on the adjacent nate. Normal cerebellum. Normal basal cisterns. Normal bilateral temporal bones. Normal bilateral internal auditory canals. MRI/Brain without Contrast IMPRESSION: No acute intracranial abnormality. Stable right CP angle/Meckel's cave likely meningioma. Electronically Signed: Domenic Padilla MD at 14:57 EDT Tel , Service support ,
--- NOTE | 2017-12-25 00:41 | ECHOD_ITS ---
Reason For Study: TIA/CVA Procedure This was a 2D Doppler, Color Flow transthoracic echocardiogram. Contrast injection was performed. Exam performed portable in patient room. Left Ventricle Normal size and thickness. Normal LV size. The estimated ejection fraction is 60 %. There is evidence of diastolic dysfunction. Stage 1 diastolic dysfunction. No regional wall motion abnormalities noted. Right Ventricle Normal RV size. Normal systolic function. Atria Normal left atrium. Normal right atrium. Bubble contrast study negative for right to left interatrial shunt. Mitral Valve Normal mitral valve. Mild (1+) eccentric mitral valve insufficiency. Tricuspid Valve Normal tricuspid valve. Mild to moderate (1-2+) tricuspid valve insufficiency. Pulmonary artery systolic pressure is 55 mmHg. Moderate pulmonary hypertension. Aortic Valve Normal aortic valve. Trisinus/trileaflet aortic valve. Pulmonic Valve Normal pulmonic valve. Great Vessels Normal aortic root. The pulmonary artery is normal size. Normal inferior vena cava. Pericardium/Pleural No pericardial effusion. Medication Performed a rapid injection of agitated mix of 9 cc saline and 1cc air to assess for atrial septal defect. MMode/2D Measurements & Calculations LVIDd: 4.3 cm IVSd: 1.3 cm Ao root diam: 2.4 cm LVIDs: 2.9 cm LVPWd: 1.0 cm LA dimension: 3.4 cm RVDd: 2.5 cm FS: 34.0 % LAV(MOD-bp): 41.1 ml LA A4 area: 17.1 cm2 RA A4 area: 13.8 cm2 LAV(MOD-bp) Indexed: 22.5 ml/m2 LAV(MOD-sp2): 32.8 ml LAV(MOD-sp4): 43.8 ml Time Measurements MV dec time: 0.31 sec Doppler Measurements & Calculations MV E max glenn: 75.3 cm/sec MV V2 max: 119.9 cm/sec MV P1/2t max glenn: 92.9 cm/sec MV A max glenn: 106.8 cm/sec MV max P.8 mmHg MV P1/2t: 101.6 msec MV E/A: 0.71 MV V2 mean: 59.1 cm/sec MV dec slope: 267.8 cm/sec2 MV mean P.7 mmHg MVA(P1/2t): 2.2 cm2 MV V2 VTI: 30.2 cm Ao V2 max: 154.2 cm/sec LV V1 max: 110.4 cm/sec PA V2 max: 133.0 cm/sec Ao max P.5 mmHg LV V1 max P.9 mmHg TR max glenn: 358.5 cm/sec TR max P.4 mmHg Interpretation Summary Normal size and thickness. Normal LV size. The estimated ejection fraction is 60 %. There is evidence of diastolic dysfunction. Stage 1 diastolic dysfunction. Moderate pulmonary hypertension. Ordering Physician: Manoj Deluna Referring Physician: Twan Coy Performed By: Jorge Sheriff RCS
[2017-12-25 01:08] LABS: Erythrocyte Sedimentation Rate 14 mm/hr (0-30)
[2017-12-25 02:55] LABS: Hemoglobin A1c 7.1 % (4.2-6.3)
[2017-12-25] MEDS: Levothyroxine 100 MCG Tablet PO (05:30)
--- NOTE | 2017-12-25 06:00 | EKG12_ITS ---
Test Reason : JUNCTIONAL RHYTHM Blood Pressure : / mmHG Vent. Rate : 062 BPM Atrial Rate : 077 BPM P-R Int : 168 ms QRS Dur : 100 ms QT Int : 440 ms P-R-T Axes : 000 -48 -74 degrees QTc Int : 446 ms Sinus rhythm with marked sinus arrhythmia Left anterior fascicular block Voltage criteria for left ventricular hypertrophy Nonspecific ST and T wave abnormality Abnormal ECG When compared with ECG of 25-DEC-2017 06:32, MANUAL COMPARISON REQUIRED, DATA IS UNCONFIRMED Confirmed by ALISA RUIZ, SHAKIRA ([id number]), design editor MAYURI CADE ([id number]) on 12/30/2017 4:07:11 PM Referred By: Kayleigh Acuña Confirmed By:SHAKIRA CUELLAR MD
[2017-12-25 06:55] LABS: Cholesterol 138 mg/dL (200); High Density Lipoprotein 48 mg/dL; Triglycerides 163 mg/dL; Very Low Density Lipoprotein 33 mg/dL (5-40)
[2017-12-25 07:10] LABS: Bedside Glucose 167 mg/dL (70-110)
[2017-12-25] MEDS: Insulin Lispro 100 UNIT/ML INSULN.PEN SQ ×2 (09:17→12:31)
[2017-12-25] MEDS: Loratadine 10 MG Tablet PO (09:18)
[2017-12-25] MEDS: Ferrous Sulfate 325 MG Tablet PO (09:18)
[2017-12-25] MEDS: Heparin Injection (Vial) 5,000 UNIT/ML VIAL 5000 UNIT SC ×2 (09:18→21:03)
[2017-12-25] MEDS: carBAMazepine 200 MG Tablet 100 MG PO (09:18)
[2017-12-25] MEDS: Docusate Sodium 100 MG Capsule PO (09:18)
[2017-12-25] MEDS: Clopidogrel Bisulfate 75 MG Tablet PO (09:18)
[2017-12-25] MEDS: Cyanocobalamin 500 MCG Tablet PO (09:18)
[2017-12-25] MEDS: Calcium Carb/Vitamin D 1 TABLET Tablet 3 TABLET PO ×2 (09:18→21:04)
--- NOTE | 2017-12-25 10:29 | PCM.PN.HOSP ---
Patient Problems: Active and Suspected Problems (Last Reviewed 12/25/17 @ 00:42 by Manoj Deluna MD) Stroke-like symptoms (Acute) Subjective: Per , symptoms have resolved. Yesterday, patient was doing abnormal behaviors. Patient was having difficulty negotiating phonebook and when he was going to give her a shot of insulin patient was going up but then her mouth. These are behaviors are outside the norm for the patient. Patient has no recollection of these events. He states that she has had other events in the past but the last about an hour or 2 but this symptoms persisted longer and were more severe. Vitals/I&O's: Vital Signs Temp Pulse Resp BP Pulse Ox 36.7 C 63 16 122/75 H 96 12/25/17 09:00 12/25/17 09:00 12/25/17 09:00 12/25/17 09:00 12/25/17 09:00 Oxygen Flow Rate (L/min) 2 Oxygen Delivery Method Room Air Weight: 81.6 kg Body Mass Index (BMI) 35.1 Finger Stick Blood Glucose 97 Intake and Output for Last 24 Hours 12/23/17 12/24/17 12/25/17 23:59 23:59 23:59 Intake Total 200 / 200 Balance 200 / 200 General: Alert, Oriented x3, Cooperative, No apparent distress HEENT: Atraumatic, PERRLA, EOMI, Normocephalic Oral: Moist Mucosa, No Gingival or Mucosal Lesions/ Ulcerations Neck: No Nodes, Thyroid Normal Size and Texture Lungs: Clear to auscultation, Normal air movement, No rhonchi, No wheeze Cardiovascular: Regular rate, Regular Rhythm, Normal S1, Normal S2, No murmurs Abdomen: Bowel Sounds Present, Soft, Non Tender, Non-Distended, No Hepato-splenomegaly Extremities: No edema, No Calf Tenderness Skin: No rashes, No breakdown Musculoskeletal: No Tenderness to Palpation of Joints or Extremities, No Muscle Wasting Neurological: Cranial nerves II-XII grossly intact, Neuro grossly intact, Motor Exam 5/5 strength throughout, Muscle tone normal, Sensory exam intact to light touch and pain, - - NIH 0 Psych/Mental Status: Normal Affect, Appropriate Laboratory Results 12/24/17 21:23: POC Glucose 97 12/24/17 21:42: WBC 10.4, RBC 4.34, Hgb 13.2, Hct 40.2, MCV 92.6, MCH 30.4, MCHC 32.8, RDW 13.2, RDW Differential 44.0 H, Plt Count 176, MPV 11.0, Immature Gran % (Auto) 0.200, Neut % (Auto) 69.2, Lymph % (Auto) 20.2, [place] % (Auto) 8.7, Eos % (Auto) 1.4, Baso % (Auto) 0.3, Absolute Neuts (auto) 7.2, Absolute Lymphs (auto) 2.10, Total Counted Not Reportable 12/24/17 21:42: PT 12.6, INR 0.9, APTT 24.7 12/24/17 21:42: Sodium 144, Potassium 4.0, Chloride 107, Carbon Dioxide 30.0, Anion Gap 7, BUN 30 H, Creatinine 1.24 H, Estim Creat Clear Calc 31.48, Est GFR (MDRD) Af Amer 54 L, Est GFR (MDRD) Non-Af 45 L, BUN/Creatinine Ratio 24.2 H, Glucose 96, Calcium 8.9, Troponin I 0.034 12/24/17 21:42: Hemoglobin A1c 7.1 H 12/24/17 21:42: ESR 14 12/24/17 22:21: Urine Color Yellow, Urine Clarity Sl Cldy, Urine pH 5.0, Ur Specific [place] 1.015, Urine Protein 30 H, Urine Glucose (UA) 50 H, Urine Ketones Negative, Urine Occult Blood 10 H, Urine Nitrite Negative, Urine Bilirubin Negative, Urine Urobilinogen Normal, Ur Leukocyte Esterase 25 H, Urine RBC 0 SEEN, Urine WBC 0 SEEN, Ur Squamous Epith Cells 0 SEEN, Urine Bacteria 0 SEEN, Hyaline Casts 5-10 SEEN, Urine Mucus 2+ 12/25/17 06:00: Triglycerides 163, Cholesterol 138, LDL Cholesterol 57, VLDL Cholesterol 33, HDL Cholesterol 48 12/25/17 07:06: POC Glucose 167 H Current Medications Hydrocodone Bitart/Acetaminophen ([place] 5mg-325mg) 1 - 2 tablet PO Q6H PRN PRN PRN Reason: Moderate-severe pain Calcium/Vitamin D (Os-Thad 500mg + D) 3 tablet PO BID YANELI Last Admin: 12/25/17 09:18 Dose: 3 tablet Carbamazepine (Tegretol) 100 mg PO DAILYCM YANELI Last Admin: 12/25/17 09:18 Dose: 100 mg Cholecalciferol (Vitamin D) 1,000 unit PO BID [facility] Last Admin: 12/25/17 09:18 Dose: 1,000 unit Clopidogrel Bisulfate (Plavix) 75 mg PO DAILY [facility] Last Admin: 12/25/17 09:18 Dose: 75 mg Cyanocobalamin (Vitamin B12) 500 mcg PO DAILY [facility] Last Admin: 12/25/17 09:18 Dose: 500 mcg Dextrose (D50w Syringe) 0 gm IV X1 PRN; Protocol PRN Reason: Hypoglycemia Docusate Sodium (Colace) 100 mg PO DAILY [facility] Last Admin: 12/25/17 09:18 Dose: 100 mg Ferrous Sulfate ([facility]ous Sulfate) [facility] Last Admin: 12/25/17 09:18 Dose: 325 mg Glucagon () 1 mg IM .X1 PRN PRN Reason: Hypoglycemia Heparin Sodium (Porcine) (Heparin Na) 5,000 unit SC Q12 [facility] Last Admin: 12/25/17 09:18 Dose: 5,000 unit Insulin Glargine (Lantus (Bkc)) 20 units SC QHS [facility] Insulin Human Lispro (Humalog Kwikpen (Bkc)) 0 unit SQ ACHS [facility]; Protocol Last Admin: 12/25/17 09:17 Dose: 2 units Labetalol HCl (Trandate) 10 mg IV Q10M PRN PRN Reason: MAINTAIN BP < 220/120 Stop: 12/26/17 00:42 Levothyroxine Sodium (Synthroid) 100 mcg PO DAILY@0600 [facility] Last Admin: 12/25/17 05:30 Dose: 100 mcg Loratadine (Claritin) 10 mg PO DAILY [facility] Last Admin: 12/25/17 09:18 Dose: 10 mg Magnesium Hydroxide (Milk Of Magnesia) 30 ml PO DAILY PRN PRN Reason: Constipation Ondansetron HCl (Zofran) 4 mg IV Q6H PRN PRN PRN Reason: NAUSEA/VOMITING Pravastatin Sodium (Pravachol) 80 mg PO QHS [facility] Sodium Chloride () 5 - 30 ml IV UD PRN PRN Reason: SALINE FLUSH Medical Necessity - Tobacco Use Smoking Status: Never smoker Assessment/Plan All Active Problems (Last Reviewed 12/25/17 @ 00:42 by Manoj Deluna MD) Stroke-like symptoms (Acute) 1. suspected CVA or TIA symptoms completely resolvedcontinue plavix follow up MRI, echo neurology on consult PT/OT eval on 80 Pravachol 2. DM2 fair control continue Lantus and SSI 3. DVT proph: SQ heparin. Code Visit Inpatient E&M: 47600 Subs Hosp L3
--- NOTE | 2017-12-25 10:35 | CASEMGMT ---
RN CM Face to Face with patient for initial transition planning/care coordination assessment. RN CM introduced self and role at [facility]. Patient lying in bed, alert and oriented, at bedside. Patient willing to participate in assessment and is able to answer all questions appropriately. Care providers, pharmacy, and demographics verified. Patient wishes to discharge home, denies need for home health at this time. Patient states she has no further needs or concerns at this time. CM to follow for discharge planning needs that may arise. PCP: Zbigniew Specialists: Zoey, tier and detonator; Bren, neurologist; Corey, clerical support specialist Preferred Pharmacy: [facility] Insurance: [facility], [employer] Prescription Benefit: [employer] Living Will/HPOA: yes, Tram [employer]ber LNOK: Living Arrangements: Patient lives with in a 1 story home with 2 step and railing to enter home. Transportation: DME/HHC: Patient has cane, walker, grab bars, wheelchair. Patient denies need for HHC Disposition Plan: Patient to discharge home with family support and follow-up plans in place. Martha TEMPLETON, RN, CM
--- NOTE | 2017-12-25 10:36 | PN_ITS ---
Patient Problems: Active and Suspected Problems (Last Reviewed 12/25/17 @ 00:42 by Manoj Deluna MD) Stroke-like symptoms (Acute) Subjective: Per , symptoms have resolved. Yesterday, patient was doing abnormal behaviors. Patient was having difficulty negotiating phonebook and when he was going to give her a shot of insulin patient was going up but then her mouth. These are behaviors are outside the norm for the patient. Patient has no recollection of these events. He states that she has had other events in the p ast but the last about an hour or 2 but this symptoms persisted longer and were more severe. Vitals/I&O's: Vital Signs Temp Pulse Resp BP Pulse Ox 36.7 C 63 16 122/75 H 96 12/25/17 09:00 12/25/17 09:00 12/25/17 09:00 12/25/17 09:00 12/25/17 09:00 Oxygen Flow Rate (L/min) 2 Oxygen Delivery Method Room Air Weight: 81.6 kg Body Mass Index (BMI) 35.1 Finger Stick Blood Glucose 97 Intake and Output for Last 24 Hours 12/23/17 12/24/17 12/25/17 23:59 23:59 23:59 Intake Total 200 / 200 Balance 200 / 200 General: Alert, Oriented x3, Cooperative, No apparent distress HEENT: Atraumatic, PERRLA, EOMI, Normocephalic Oral: Moist Mucosa, No Gingival or Mucosal Lesions/ Ulcerations Neck: No Nodes, Thyroid Normal Size and Texture Lungs: Clear to auscultation, Normal air movement, No rhonchi, No wheeze Cardiovascular: Regular rate, Regular Rhythm, Normal S1, Normal S2, No murmurs Abdomen: Bowel Sounds Present, Soft, Non Tender, Non-Distended, No Hepato- splenomegaly Extremities: No edema, No Calf Tenderness Skin: No rashes, No breakdown Musculoskeletal: No Tenderness to Palpation of Joints or Extremities, No Muscle Wasting Neurological: Cranial nerves II-XII grossly intact, Neuro grossly intact, Motor Exam 5/5 strength throughout, Muscle tone normal, Sensory exam intact to light touch and pain, - - NIH 0 Psych/Mental Status: Normal Affect, Appropriate Laboratory Results 12/24/17 21:23: POC Glucose 97 12/24/17 21:42: WBC 10.4, RBC 4.34, Hgb 13.2, Hct 40.2, MCV 92.6, MCH 30.4, MCHC 32.8, RDW 13.2, RDW Differential 44.0 H, Plt Count 176, MPV 11.0, Immature Gran % (Auto) 0.200, Neut % (Auto) 69.2, Lymph % (Auto) 20.2, [place] % (Auto) 8.7, Eos % (Auto) 1.4, Baso % (Auto) 0.3, Absolute Neuts (auto) 7.2, Absolute Lymphs (auto) 2.10, Total Counted Not Reportable 12/24/17 21:42: PT 12.6, INR 0.9, APTT 24.7 12/24/17 21:42: Sodium 144, Potassium 4.0, Chloride 107, Carbon Dioxide 30.0, Anion Gap 7, BUN 30 H, Creatinine 1.24 H, Estim Creat Clear Calc 31.48, Est GFR (MDRD) Af Amer 54 L, Est GFR (MDRD) Non-Af 45 L, BUN/Creatinine Ratio 24.2 H, Glucose 96, Calcium 8.9, Troponin I 0.034 12/24/17 21:42: Hemoglobin A1c 7.1 H 12/24/17 21:42: ESR 14 12/24/17 22:21: Urine Color Yellow, Urine Clarity Sl Cldy, Urine pH 5.0, Ur Specific [place] 1.015, Urine Protein 30 H, Urine Glucose (UA) 50 H, Urine Ketones Negative, Urine Occult Blood 10 H, Urine Nitrite Negative, Urine Bilirubin Negative, Urine Urobilinogen Normal, Ur Leukocyte Esterase 25 H, Urine RBC 0 SEEN, Urine WBC 0 SEEN, Ur Squamous Epith Cells 0 SEEN, Urine Bacteria 0 SEEN, Hyaline Casts 5-10 SEEN, Urine Mucus 2+ 12/25/17 06:00: Triglycerides 163, Cholesterol 138, LDL Cholesterol 57, VLDL Cholesterol 33, HDL Cholesterol 48 12/25/17 07:06: POC Glucose 167 H Current Medications Hydrocodone Bitart/Acetaminophen ([place] 5mg-325mg) 1 - 2 tablet PO Q6H PRN PRN PRN Reason: Moderate-severe pain Calcium/Vitamin D (Os-Thad 500mg + D) 3 tablet PO BID YANELI Last Admin: 12/25/17 09:18 Dose: 3 tablet [facility] ([facility]) [facility] Last Admin: 12/25/17 09:18 Dose: 100 mg Cholecalciferol (Vitamin D) 1,000 unit PO BID [facility] Last Admin: 12/25/17 09:18 Dose: 1,000 unit Clopidogrel Bisulfate (Plavix) 75 mg PO DAILY [facility] Last Admin: 12/25/17 09:18 Dose: 75 mg Cyanocobalamin (Vitamin B12) 500 mcg PO DAILY [facility] Last Admin: 12/25/17 09:18 Dose: 500 mcg Dextrose (D50w Syringe) 0 gm IV X1 PRN; Protocol PRN Reason: Hypoglycemia Docusate Sodium (Colace) 100 mg PO DAILY [facility] Last Admin: 12/25/17 09:18 Dose: 100 mg Ferrous Sulfate (Ferrous Sulfate) [facility] Last Admin: 12/25/17 09:18 Dose: 325 mg Glucagon () 1 mg IM .X1 PRN PRN Reason: Hypoglycemia Heparin Sodium (Porcine) (Heparin Na) 5,000 unit SC Q12 [facility] Last Admin: 12/25/17 09:18 Dose: 5,000 unit Insulin Glargine (Lantus (Bkc)) 20 units SC QHS [facility] Insulin Human Lispro (Humalog Kwikpen (Bkc)) 0 unit SQ ACHS [facility]; Protocol Last Admin: 12/25/17 09:17 Dose: 2 units Labetalol HCl (Trandate) 10 mg IV Q10M PRN PRN Reason: MAINTAIN BP < 220/120 Stop: 12/26/17 00:42 Levothyroxine Sodium (Synthroid) 100 mcg PO DAILY@0600 [facility] Last Admin: 12/25/17 05:30 Dose: 100 mcg Loratadine (Claritin) 10 mg PO DAILY [facility] Last Admin: 12/25/17 09:18 Dose: 10 mg Magnesium Hydroxide (Milk Of Magnesia) 30 ml PO DAILY PRN PRN Reason: Constipation Ondansetron HCl (Zofran) 4 mg IV Q6H PRN PRN PRN Reason: NAUSEA/VOMITING Pravastatin Sodium (Pravachol) 80 mg PO QHS [facility] Sodium Chloride () 5 - 30 ml IV UD PRN PRN Reason: SALINE FLUSH Medical Necessity - Tobacco Use Smoking Status: Never smoker Assessment/Plan All Active Problems (Last Reviewed 12/25/17 @ 00:42 by Manoj Deluna MD) Stroke-like symptoms (Acute) 1. suspected CVA or TIA * symptoms completely resolvedcontinue plavix * follow up MRI, echo * neurology on consult * PT/OT eval * on 80 Pravachol 2. DM2 * fair control * continue Lantus and SSI 3. DVT proph: SQ heparin. Code Visit Inpatient E&M: 14943 Subs Hosp L3
[2017-12-25 12:16] LABS: Bedside Glucose 276 mg/dL (70-110)
--- NOTE | 2017-12-25 15:49 | PCM.CONS.GEN ---
Problem List (1) TIA (transient ischemic attack) Status: Acute Reason for Consult Date of Consultation: 12/25/17 Reason for Consultation: TIA History of Present Illness: The patient is a 72 year old CF with PMH HTN, HLD, DM, [place] on Carbamazepine, CAD s/p stents, CKD, hypothyroidism admitted with episode of confusion and dysarthria. Per patient she was at home yesterday (12/24/17), was about have dinner that neighbour had brought, but she does not remember anything after that for about half hour and per patient she was told that she was not acting right, had dysarthria and her could not understand her speech, has had GIRON for about 2 weeks, mostly bifrontal, without any photophobia, phonophobia, vision loss, was about 5/10 intensity, per patient she never gets GIRON at baseline, her symptoms had resolved and by the time she was in the ED her NIHSS was 0 per ED documentation. At present she denies any GIRON, dizziness, focal motor weakness, sensory loss, speech disturbances or visual disturbances. Is on Plavix at baseline, lives with , uses walker to ambulate, had falls in the past, last fall was about 7 weeks ago [address] does not drive. [] Past Medical History Past Medical History (Chronic Problems): Chronic Problems (Last Updated 12/25/17 @ 10:32 by Maurizio Lozano DO) Nonrheumatic aortic (valve) stenosis (Chronic) Pulmonary hypertension (Chronic) Nonrheumatic tricuspid (valve) insufficiency (Chronic) Nonrheumatic mitral (valve) insufficiency (Chronic) Nonrheumatic mitral (valve) prolapse (Chronic) CKD (chronic kidney disease) stage 3, GFR 30-59 ml/min (Chronic) Type 2 diabetes mellitus (Chronic) Essential hypertension (Chronic) Carotid artery stenosis (Chronic) Left Presence of stent in coronary artery (Chronic ~1999) PTCA/Stent to the LAD 1999 Atherosclerotic heart disease of [place] coronary artery without angina pectoris (Chronic) Hyperlipemia (Chronic) Hypothyroidism (Chronic) Medical History: Medical History (Last Updated 12/25/17 @ 10:32 by Maurizio Lozano DO) Nonrheumatic aortic (valve) stenosis (Chronic) I35.0 Pulmonary hypertension (Chronic) I27.20 Nonrheumatic tricuspid (valve) insufficiency (Chronic) I36.1 Nonrheumatic mitral (valve) insufficiency (Chronic) I34.0 Nonrheumatic mitral (valve) prolapse (Chronic) I34.1 CKD (chronic kidney disease) stage 3, GFR 30-59 ml/min (Chronic) N18.3 Type 2 diabetes mellitus (Chronic) E11.9 Essential hypertension (Chronic) I10 Carotid artery stenosis (Chronic) I65.29 Left Presence of stent in coronary artery (Chronic) Onset Date: ~1999 Z95.5 PTCA/Stent to the LAD 2000 Atherosclerotic heart disease of [place] coronary artery without angina pectoris (Chronic) I25.10 Hyperlipemia (Chronic) E78.5 Hypothyroidism (Chronic) E03.9 GERD (gastroesophageal reflux disease) K21.9 Trigeminal neuralgia G50.0 Meningioma D32.9 Allergies adhesive tape Allergy (Verified 12/24/17 21:47) Rash Penicillins Allergy (Verified 12/24/17 21:47) Rash Home Medications: Ambulatory Orders Medication Instructions Recorded Clopidogrel Bisulfate [Plavix] 75 mg PO DAILY 09/12/16 Insulin Aspart [Novolog Flexpen 10 units SUBCUT BREAKFAST 09/12/16 ([facility])] Insulin Aspart [Novolog Flexpen 20 units SUBCUT DINNER 09/12/16 ([facility])] Insulin Aspart [Novolog Flexpen 20 units SUBCUT LUNCH 09/12/16 ([facility])] Levothyroxine [Synthroid] 100 mcg PO DAILY 09/12/16 Pravastatin [Pravachol] 80 mg PO QHS 09/12/16 Calcium Carbonate/Vitamin D3 1,500 mg PO BID 09/13/17 [Calcium 500+D Tablet Chew] Cholecalciferol (Vitamin D3) 1,000 unit PO BID 09/13/17 [Vitamin D3] Fexofenadine HCl 180 mg PO DAILY 09/13/17 Cyanocobalamin (Vitamin B-12) 500 mcg PO DAILY 09/17/17 [Vitamin B-12] isosorbide mononitrate ER 60 mg 60 mg PO DAILY 12/01/17 tablet,extended release 24 hr carbamazepine 200 mg tablet 100 mg PO DAILY tab 12/02/17 ferrous sulfate 325 mg (65 mg 325 mg PO DAILY tab 12/02/17 iron) tablet insulin detemir (U-100) 100 40 unit SC QHS ml 12/02/17 unit/mL (3 mL) subcutaneous pen ondansetron HCl 4 mg tablet 4 mg PO .COMPLEX PRN tab 12/02/17 Docusate Sodium [Colace] 100 mg PO DAILY #20 capsule 12/15/17 Surgical History: Surgical History (Last Reviewed 12/25/17 @ 00:42 by Manoj Deluna MD) Presence of coronary angioplasty implant and graft Onset Date: ~1999 Z95.5 PTCA/Stent to the LAD 2000 History of cataract surgery Z98.49 History of hysterectomy Z90.710 History of right-sided carotid endarterectomy Z98.890 S/P wrist surgery Z98.890 ORIF Lives: Spouse/ Significant Other Smoking Status: Never smoker Alcohol: None Drugs: None - *Family History Maternal Family History: Family History (Last Reviewed 12/25/17 @ 00:43 by Manoj Deluna MD) Mother Heart disease Paternal Family History: Family History (Last Reviewed 12/25/17 @ 00:43 by Manoj Deluna MD) Mother Heart disease Review of Systems Constitutional: Reports: - - complete ROS negative except as documented in HPI Patient Problems: Active and Suspected Problems (Last Updated 12/25/17 @ 10:32 by Maurizio Lozano DO) TIA (transient ischemic attack) (Acute) Stroke-like symptoms (Acute) - Physical Exam General: Alert HEENT: Normocephalic Neck: Supple Lungs: Normal air movement Cardiovascular: Normal S1, Normal S2 Abdomen: Bowel Sounds Present Extremities: No cyanosis Musculoskeletal: No Tenderness to Palpation of Joints or Extremities Neurological: Cranial nerves II-XII grossly intact, Neuro grossly intact, Motor Exam 5/5 strength throughout, Muscle tone normal, Sensory exam intact to light touch and pain, Coordination normal, - - Relfexes + B/L B/S/T/K/A, gait deferred Psych/Mental Status: Normal Affect Vital Signs Temp Pulse Resp BP Pulse Ox 98.0 F 72 16 128/67 H 97 12/25/17 13:00 12/25/17 13:00 12/25/17 13:00 12/25/17 13:00 12/25/17 13:00 Oxygen Flow Rate (L/min) 2 Oxygen Delivery Method Room Air Weight: 81.6 kg Body Mass Index (BMI) 35.1 Finger Stick Blood Glucose 97 Intake and Output for Last 24 Hours 11/03/1112/24/17 12/25/17 23:59 23:59 23:59 Intake Total 660 / 660 Balance 660 / 660 Laboratory Tests Past 24 Hrs 12/24/17 12/24/17 12/24/17 21:42 21:42 21:42 WBC 10.4 RBC 4.34 Hgb 13.2 Hct 40.2 MCV 92.6 MCH 30.4 MCHC 32.8 RDW 13.2 RDW Differential 44.0 H Plt Count 176 MPV 11.0 Immature Gran % (Auto) 0.200 Neut % (Auto) 69.2 Lymph % (Auto) 20.2 [place] % (Auto) 8.7 Eos % (Auto) 1.4 Baso % (Auto) 0.3 Absolute Neuts (auto) 7.2 Absolute Lymphs (auto) 2.10 Total Counted Not Reportable ESR PT 12.6 INR 0.9 APTT 24.7 Sodium 144 Potassium 4.0 Chloride 107 Carbon Dioxide 30.0 Anion Gap 7 BUN 30 H Creatinine 1.24 H Estim Creat Clear Calc 31.48 Est GFR (MDRD) Af Amer 54 L Est GFR (MDRD) Non-Af 45 L BUN/Creatinine Ratio 24.2 H Glucose 96 Hemoglobin A1c Calcium 8.9 Troponin I 0.034 Triglycerides Cholesterol LDL Cholesterol VLDL Cholesterol HDL Cholesterol Urine Color Urine Clarity Urine pH Ur Specific [place] Urine Protein Urine Glucose (UA) Urine Ketones Urine Occult Blood Urine Nitrite Urine Bilirubin Urine Urobilinogen Ur Leukocyte Esterase Urine RBC Urine WBC Ur Squamous Epith Cells Urine Bacteria Hyaline Casts Urine Mucus 12/24/17 12/24/17 12/24/17 21:42 21:42 22:21 WBC RBC Hgb Hct MCV MCH MCHC RDW RDW Differential Plt Count MPV Immature Gran % (Auto) Neut % (Auto) Lymph % (Auto) [place] % (Auto) Eos % (Auto) Baso % (Auto) Absolute Neuts (auto) Absolute Lymphs (auto) Total Counted ESR 14 PT INR APTT Sodium Potassium Chloride Carbon Dioxide Anion Gap BUN Creatinine Estim Creat Clear Calc Est GFR (MDRD) Af Amer Est GFR (MDRD) Non-Af BUN/Creatinine Ratio Glucose Hemoglobin A1c 7.1 H Calcium Troponin I Triglycerides Cholesterol LDL Cholesterol VLDL Cholesterol HDL Cholesterol Urine Color Yellow Urine Clarity Sl Cldy Urine pH 5.0 Ur Specific [place] 1.015 Urine Protein 30 H Urine Glucose (UA) 50 H Urine Ketones Negative Urine Occult Blood 10 H Urine Nitrite Negative Urine Bilirubin Negative Urine Urobilinogen Normal Ur Leukocyte Esterase 25 H Urine RBC 0 SEEN Urine WBC 0 SEEN Ur Squamous Epith Cells 0 SEEN Urine Bacteria 0 SEEN Hyaline Casts 5-10 SEEN Urine Mucus 2+ 12/25/17 06:00 WBC RBC Hgb Hct MCV MCH MCHC RDW RDW Differential Plt Count MPV Immature Gran % (Auto) Neut % (Auto) Lymph % (Auto) [place] % (Auto) Eos % (Auto) Baso % (Auto) Absolute Neuts (auto) Absolute Lymphs (auto) Total Counted ESR PT INR APTT Sodium Potassium Chloride Carbon Dioxide Anion Gap BUN Creatinine Estim Creat Clear Calc Est GFR (MDRD) Af Amer Est GFR (MDRD) Non-Af BUN/Creatinine Ratio Glucose Hemoglobin A1c Calcium Troponin I Triglycerides 163 Cholesterol 138 LDL Cholesterol 57 VLDL Cholesterol 33 HDL Cholesterol 48 Urine Color Urine Clarity Urine pH Ur Specific [place] Urine Protein Urine Glucose (UA) Urine Ketones Urine Occult Blood Urine Nitrite Urine Bilirubin Urine Urobilinogen Ur Leukocyte Esterase Urine RBC Urine WBC Ur Squamous Epith Cells Urine Bacteria Hyaline Casts Urine Mucus POC Glucose 12/25/17 12/25/17 12/24/17 12:04 07:06 21:23 POC Glucose 276 H 167 H 97 Assessment/Plan All Active Problems (Last Updated 12/25/17 @ 10:32 by Maurizio Lozano DO) TIA (transient ischemic attack) (Acute) Stroke-like symptoms (Acute) The patient is a 72 year old CF with PMH HTN, HLD, DM, [place] on Carbamazepine, CAD s/p stents, CKD, hypothyroidism admitted with episode of confusion and speech disturbances. Per patient she was at home yesterday (12/24/17), was about have dinner that neighbor had brought, but she does not remember anything after that for about half hour and per patient she was told that she was not acting right, had speech disturbances and her could not understand her speech, has had GIRON for about 2 weeks, mostly bifrontal, without any photophobia, phonophobia, vision loss, was about 5/10 intensity, per patient she never gets GIRON at baseline, her symptoms had resolved and by the time she was in the ED her NIHSS was 0 per ED documentation. At present she denies any GIRON, dizziness, focal motor weakness, sensory loss, speech disturbances or visual disturbances. Is on Plavix at baseline, lives with , uses walker to ambulate, had falls in the past, last fall was about 7 weeks ago and does not drive. MRI brain done on admission did not show any stroke, CTA head/neck showed left ICA 70-80% stenosis Impression Probable TIA Acute confusional episode with speech disturbances Carotid stenosis- Left ICA 70-80% stenosis Plan -ASA and Plavix. Dual AP for 3 months. Bleeding risks discussed with patient in detail -Change Pravastatin to Lipitor 80 mg PO q hs -MRI brain reviewed- no acute stroke -CTA head/neck- Left ICA 70-80% stenosis -LDL-57, [id number]-1.1% -[id number]-60%, normal LA size -Recommend Vascular surgery consult prior to discharge for possible CEA -Avoid dehydration and avoid hypotension -PT/OT and ST -GI/DVT prophylaxis -Stroke risk factors discussed and stroke education provided -Further medical management per hospitalist -Fall precautions -Please follow up with her Neurologist Dr. Saba in 2-3 weeks as outpatient -Thank you for allowing us to participate in patient's care and management Code Visit Inpatient E&M: 08804 Init Hosp L3
--- NOTE | 2017-12-25 15:54 | CON.PCM_ITS ---
Problem List (1) TIA (transient ischemic attack) Status: Acute Reason for Consult Date of Consultation: 12/25/17 Reason for Consultation: TIA History of Present Illness: The patient is a 72 year old CF with PMH HTN, HLD, DM, [place] on Carbamazepine, CAD s/p stents, CKD, hypothyroidism admitted with episode of confusion and dysarthria. Per patient she was at home yesterday (12/24/17), was about have dinner that neighbour had brought, but she does not remember anything after that for about half hour and per patient she was told that she was not acting right, had dysarthria and her could not understand her speech, has had GIRON for about 2 weeks, mostly bifrontal, without any photophobia, phonophobia, vision loss, was about 5/10 intensity, per patient she never gets GIRON at baseline, her symptoms had resolved and by the time she was in the ED her NIHSS was 0 per ED documentation. At present she denies any GIRON, dizziness, focal motor weakness, sensory loss, speech disturbances or visual disturbances. Is on Plavix at [facility], lives with , uses walker to ambulate, had falls in the past, last fall was about 7 weeks ago and does not drive. [] Past Medical History Past Medical History (Chronic Problems): Chronic Problems (Last Updated 12/25/17 @ 10:32 by Maurizio Lozano DO) Nonrheumatic aortic (valve) stenosis (Chronic) Pulmonary hypertension (Chronic) Nonrheumatic tricuspid (valve) insufficiency (Chronic) Nonrheumatic mitral (valve) insufficiency (Chronic) Nonrheumatic mitral (valve) prolapse (Chronic) CKD (chronic kidney disease) stage 3, GFR 30-59 ml/min (Chronic) Type 2 diabetes mellitus (Chronic) Essential hypertension (Chronic) Carotid artery stenosis (Chronic) Left Presence of stent in coronary artery (Chronic ~1999) PTCA/Stent to the LAD 1999 Atherosclerotic heart disease of [place] coronary artery without angina pectoris (Chronic) Hyperlipemia (Chronic) Hypothyroidism (Chronic) Medical History: Medical History (Last Updated 12/25/17 @ 10:32 by Maurizio Lozano DO) Nonrheumatic aortic (valve) stenosis (Chronic) I35.0 Pulmonary hypertension (Chronic) I27.20 Nonrheumatic tricuspid (valve) insufficiency (Chronic) I36.1 Nonrheumatic mitral (valve) insufficiency (Chronic) I34.0 Nonrheumatic mitral (valve) prolapse (Chronic) I34.1 CKD (chronic kidney disease) stage 3, GFR 30-59 ml/min (Chronic) N18.3 Type 2 diabetes mellitus (Chronic) E11.9 Essential hypertension (Chronic) I10 Carotid artery stenosis (Chronic) I65.29 Left Presence of stent in coronary artery (Chronic) Onset Date: ~1999 Z95.5 PTCA/Stent to the LAD 2000 Atherosclerotic heart disease of [place] coronary artery without angina pectoris (Chronic) I25.10 Hyperlipemia (Chronic) E78.5 Hypothyroidism (Chronic) E03.9 GERD (gastroesophageal reflux disease) K21.9 Trigeminal neuralgia G50.0 Meningioma D32.9 Allergies adhesive tape Allergy (Verified 12/24/17 21:47) Rash Penicillins Allergy (Verified 12/24/17 21:47) Rash Home Medications: Ambulatory Orders Medication Instructions Recorded Clopidogrel Bisulfate [Plavix] 75 mg PO DAILY 09/12/16 Insulin Aspart [Novolog Flexpen 10 units SUBCUT BREAKFAST 09/12/16 ([facility])] Insulin Aspart [Novolog Flexpen 20 units SUBCUT DINNER 09/12/16 ([facility])] Insulin Aspart [Novolog Flexpen 20 units SUBCUT LUNCH 09/12/16 ([facility])] Levothyroxine [Synthroid] 100 mcg PO DAILY 09/12/16 Pravastatin [Pravachol] 80 mg PO QHS 09/12/16 Calcium Carbonate/Vitamin D3 1,500 mg PO BID 09/13/17 [Calcium 500+D Tablet Chew] Cholecalciferol (Vitamin D3) 1,000 unit PO BID 09/13/17 [Vitamin D3] Fexofenadine HCl 180 mg PO DAILY 09/13/17 Cyanocobalamin (Vitamin B-12) 500 mcg PO DAILY 09/17/17 [Vitamin B-12] isosorbide mononitrate ER 60 mg 60 mg PO DAILY 12/01/17 tablet,extended release 24 hr carbamazepine 200 mg tablet 100 mg PO DAILY tab 12/02/17 ferrous sulfate 325 mg (65 mg 325 mg PO DAILY tab 12/02/17 iron) tablet insulin detemir (U-100) 100 40 unit SC QHS ml 12/02/17 unit/mL (3 mL) subcutaneous pen ondansetron HCl 4 mg tablet 4 mg PO .COMPLEX PRN tab 12/02/17 Docusate Sodium [Colace] 100 mg PO DAILY #20 capsule 12/15/17 Surgical History: Surgical History (Last Reviewed 12/25/17 @ 00:42 by Manoj Deluna MD) Presence of coronary angioplasty implant and graft Onset Date: ~1999 Z95.5 PTCA/Stent to the LAD 2000 History of cataract surgery Z98.49 History of hysterectomy Z90.710 History of right-sided carotid endarterectomy Z98.890 S/P wrist surgery Z98.890 ORIF Lives: Spouse/ Significant Other Smoking Status: Never smoker Alcohol: None Drugs: None - *Family History Maternal Family History: Family History (Last Reviewed 12/25/17 @ 00:43 by Manoj Deluna MD) Mother Heart disease Paternal Family History: Family History (Last Reviewed 12/25/17 @ 00:43 by Manoj Deluna MD) Mother Heart disease Review of Systems Constitutional: Reports: - - complete ROS negative except as documented in HPI Patient Problems: Active and Suspected Problems (Last Updated 12/25/17 @ 10:32 by Maurizio Lozano DO) TIA (transient ischemic attack) (Acute) Stroke-like symptoms (Acute) - Physical Exam General: Alert HEENT: Normocephalic Neck: Supple Lungs: Normal air movement Cardiovascular: Normal S1, Normal S2 Abdomen: Bowel Sounds Present Extremities: No cyanosis Musculoskeletal: No Tenderness to Palpation of Joints or Extremities Neurological: Cranial nerves II-XII grossly intact, Neuro grossly intact, Motor Exam 5/5 strength throughout, Muscle tone normal, Sensory exam intact to light touch and pain, Coordination normal, - - Relfexes + B/L B/S/T/K/A, gait deferred Psych/Mental Status: Normal Affect Vital Signs Temp Pulse Resp BP Pulse Ox 98.0 F 72 16 128/67 H 97 12/25/17 13:00 12/25/17 13:00 12/25/17 13:00 12/25/17 13:00 12/25/17 13:00 Oxygen Flow Rate (L/min) 2 Oxygen Delivery Method Room Air Weight: 81.6 kg Body Mass Index (BMI) 35.1 Finger Stick Blood Glucose 97 Intake and Output for Last 24 Hours 12/23/17 12/24/17 12/25/17 23:59 23:59 23:59 Intake Total 660 / 660 Balance 660 / 660 Laboratory Tests Past 24 Hrs 12/24/17 12/24/17 12/24/17 21:42 21:42 21:42 WBC 10.4 RBC 4.34 Hgb 13.2 Hct 40.2 MCV 92.6 MCH 30.4 MCHC 32.8 RDW 13.2 RDW Differential 44.0 H Plt Count 176 MPV 11.0 Immature Gran % (Auto) 0.200 Neut % (Auto) 69.2 Lymph % (Auto) 20.2 [place] % (Auto) 8.7 Eos % (Auto) 1.4 Baso % (Auto) 0.3 Absolute Neuts (auto) 7.2 Absolute Lymphs (auto) 2.10 Total Counted Not Reportable ESR PT 12.6 INR 0.9 APTT 24.7 Sodium 144 Potassium 4.0 Chloride 107 Carbon Dioxide 30.0 Anion Gap 7 BUN 30 H Creatinine 1.24 H Estim Creat Clear Calc 31.48 Est GFR (MDRD) Af Amer 54 L Est GFR (MDRD) Non-Af 45 L BUN/Creatinine Ratio 24.2 H Glucose 96 Hemoglobin A1c Calcium 8.9 Troponin I 0.034 Triglycerides Cholesterol LDL Cholesterol VLDL Cholesterol HDL Cholesterol Urine Color Urine Clarity Urine pH Ur Specific [place] Urine Protein Urine Glucose (UA) Urine Ketones Urine Occult Blood Urine Nitrite Urine Bilirubin Urine Urobilinogen Ur Leukocyte Esterase Urine RBC Urine WBC Ur Squamous Epith Cells Urine Bacteria Hyaline Casts Urine Mucus 12/24/17 12/24/17 12/24/17 21:42 21:42 22:21 WBC RBC Hgb Hct MCV MCH MCHC RDW RDW Differential Plt Count MPV Immature Gran % (Auto) Neut % (Auto) Lymph % (Auto) [place] % (Auto) Eos % (Auto) Baso % (Auto) Absolute Neuts (auto) Absolute Lymphs (auto) Total Counted ESR 14 PT INR APTT Sodium Potassium Chloride Carbon Dioxide Anion Gap BUN Creatinine Estim Creat Clear Calc Est GFR (MDRD) Af Amer Est GFR (MDRD) Non-Af BUN/Creatinine Ratio Glucose Hemoglobin A1c 7.1 H Calcium Troponin I Triglycerides Cholesterol LDL Cholesterol VLDL Cholesterol HDL Cholesterol Urine Color Yellow Urine Clarity Sl Cldy Urine pH 5.0 Ur Specific [place] 1.015 Urine Protein 30 H Urine Glucose (UA) 50 H Urine Ketones Negative Urine Occult Blood 10 H Urine Nitrite Negative Urine Bilirubin Negative Urine Urobilinogen Normal Ur Leukocyte Esterase 25 H Urine RBC 0 SEEN Urine WBC 0 SEEN Ur Squamous Epith Cells 0 SEEN Urine Bacteria 0 SEEN Hyaline Casts 5-10 SEEN Urine Mucus 2+ 12/25/17 06:00 WBC RBC Hgb Hct MCV MCH MCHC RDW RDW Differential Plt Count MPV Immature Gran % (Auto) Neut % (Auto) Lymph % (Auto) [place] % (Auto) Eos % (Auto) Baso % (Auto) Absolute Neuts (auto) Absolute Lymphs (auto) Total Counted ESR PT INR APTT Sodium Potassium Chloride Carbon Dioxide Anion Gap BUN Creatinine Estim Creat Clear Calc Est GFR (MDRD) Af Amer Est GFR (MDRD) Non-Af BUN/Creatinine Ratio Glucose Hemoglobin A1c Calcium Troponin I Triglycerides 163 Cholesterol 138 LDL Cholesterol 57 VLDL Cholesterol 33 HDL Cholesterol 48 Urine Color Urine Clarity Urine pH Ur Specific [place] Urine Protein Urine Glucose (UA) Urine Ketones Urine Occult Blood Urine Nitrite Urine Bilirubin Urine Urobilinogen Ur Leukocyte Esterase Urine RBC Urine WBC Ur Squamous Epith Cells Urine Bacteria Hyaline Casts Urine Mucus POC Glucose 12/25/17 12/25/17 12/24/17 12:04 07:06 21:23 POC Glucose 276 H 167 H 97 Assessment/Plan All Active Problems (Last Updated 12/25/17 @ 10:32 by Maurizio Lozano DO) TIA (transient ischemic attack) (Acute) Stroke-like symptoms (Acute) The patient is a 72 year old CF with PMH HTN, HLD, DM, [place] on Carbamazepine, CAD s/p stents, CKD, hypothyroidism admitted with episode of confusion and speech disturbances. Per patient she was at home yesterday (12/24/17), was about have dinner that neighbor had brought, but she does not remember anything after that for about half hour and per patient she was told that she was not acting right, had speech disturbances and her could not understand her speech, has had GIRON for about 2 weeks, mostly bifrontal, without any photophobia, phonophobia, vision loss, was about 5/10 intensity, per patient she never gets GIRON at baseline, her symptoms had resolved and by the time she was in the ED her NIHSS was 0 per ED documentation. At present she denies any GIRON, dizziness, focal motor weakness, sensory loss, speech disturbances or visual disturbances. Is on Plavix at baseline, lives with , uses walker to ambulate, had falls in the past, last fall was about 7 weeks ago and does not drive. MRI brain done on admission did not show any stroke, CTA head/neck showed left ICA 70-80% stenosis Impression Probable TIA Acute confusional episode with speech disturbances Carotid stenosis- Left ICA 70-80% stenosis Plan -ASA and Plavix. Dual AP for 3 months. Bleeding risks discussed with patient in detail -Change Pravastatin to Lipitor 80 mg PO q hs -MRI brain reviewed- no acute stroke -CTA head/neck- Left ICA 70-80% stenosis -LDL-57, Cni6e-3.1% -TTE-EF-60%, normal LA size -Recommend Vascular surgery consult prior to discharge for possible CEA -Avoid dehydration and avoid hypotension -PT/OT and ST -GI/DVT prophylaxis -Stroke risk factors discussed and stroke education provided -Further medical management per hospitalist -Fall precautions -Please follow up with her Neurologist Dr. Saba in 2-3 weeks as outpatient -Thank you for allowing us to participate in patient's care and management Code Visit Inpatient E&M: [id number] Init Hosp L3
[2017-12-25 16:36] LABS: Bedside Glucose 141 mg/dL (70-110)
--- NOTE | 2017-12-25 16:49 | EKG12_ITS ---
Test Reason : ARRHYTHMIA Blood Pressure : / mmHG Vent. Rate : 063 BPM Atrial Rate : 060 BPM P-R Int : 000 ms QRS Dur : 096 ms QT Int : 436 ms P-R-T Axes : 000 -46 -30 degrees QTc Int : 446 ms Junctional rhythm Left anterior fascicular block Voltage criteria for left ventricular hypertrophy Nonspecific T wave abnormality Abnormal ECG Confirmed by ALISA RUIZ, SHAKIRA ([id number]), society editor MAYURI CADE ([id number]) on 12/30/2017 4:07:48 PM Referred By: Kayleigh Acuña Confirmed By:SHAKIRA CUELLAR MD
[2017-12-25] MEDS: Insulin Lispro 100 UNIT/ML INSULN.PEN 20 UNIT SC (16:59)
--- NOTE | 2017-12-25 20:15 | NURSING ---
PATIENT COMPLAINING OF FRONTAL HEADACHE, STATES SAME HEADACHE THAT HAS HAD FOR LAST 2 WEEKS, STATES LAST FOR A LONG TIME.
[2017-12-25] MEDS: Acetaminophen 325 MG Tablet 650 MG PO (21:03)
[2017-12-25] MEDS: Atorvastatin Calcium 80 MG Tablet PO (21:15)
--- NOTE | 2017-12-25 21:55 | NURSING ---
PATIENT VOMITING, STATES DOES THIS AT HOME, AFTER PATIENT VOMITED STATES SHE FEELS MUCH BETTER AND HEADACHE IS GONE. PATIENT IS STILL A/0X3, FORGETFUL AT TIMES.
[2017-12-25 22:20] LABS: Bedside Glucose 86 mg/dL (70-110)
[2017-12-25] MEDS: Metoclopramide 10 MG/2 ML Vial IV (23:39)
[2017-12-25] MEDS: 0.9% NaCl Peripheral Flush Adult/Peds IV (23:39)
[2017-12-25 23:56] LABS: Bedside Glucose 138 mg/dL (70-110)
[2017-12-26] VITALS (7 sets, daily range): BP systolic 126–156; BP diastolic 88–98; PULSE 78–86; RESP 16–18; TEMP 36.6–37.3; O2SAT 96–98; BMI 35.1
[2017-12-26] MEDS: Levothyroxine 100 MCG Tablet PO (06:51)
[2017-12-26 07:00] LABS: Bedside Glucose 124 mg/dL (70-110)
[2017-12-26] MEDS: Insulin Lispro 100 UNIT/ML INSULN.PEN 10 UNIT SC (10:06)
[2017-12-26] MEDS: Loratadine 10 MG Tablet PO (10:07)
[2017-12-26] MEDS: Ferrous Sulfate 325 MG Tablet PO (10:07)
[2017-12-26] MEDS: carBAMazepine 200 MG Tablet 100 MG PO (10:07)
[2017-12-26] MEDS: Calcium Carb/Vitamin D 1 TABLET Tablet 3 TABLET PO (10:08)
[2017-12-26] MEDS: Heparin Injection (Vial) 5,000 UNIT/ML VIAL 5000 UNIT SC (10:08)
[2017-12-26] MEDS: Clopidogrel Bisulfate 75 MG Tablet PO (10:08)
[2017-12-26] MEDS: Docusate Sodium 100 MG Capsule PO (10:08)
[2017-12-26] MEDS: Cyanocobalamin 500 MCG Tablet PO (10:08)
[2017-12-26] MEDS: Aspirin E.C. 81 MG Tablet PO (10:16)
--- NOTE | 2017-12-26 10:39 | DCINST_ITS ---
- Discharge Diagnoses Current Active Problems: Current Active and Chronic Problems (Last Updated 12/25/17 @ 10:32 by Maurizio Lozano DO) TIA (transient ischemic attack) (Acute) Stroke-like symptoms (Acute) You will use the following diet at home:: Calorie/Carbohydrate Controlled (specify 1200, 1400, etc) - 1800 kcal/day, Cardiac Your food should be the consistency of: Regular Your liquids should be the consistency of: Regular/Thin Discharge Activity: Return to Normal Activity Call your doctor if you observe: Fever of 101 or Higher, Shortness of breath, - - confusion. staring off. seizure like activity. Allergies/Adverse Reactions: Allergies adhesive tape Allergy (Verified 12/24/17 21:47) Rash Penicillins Allergy (Verified 12/24/17 21:47) Rash Medications to take at Discharge Clopidogrel Bisulfate [Plavix] 75 mg PO DAILY 09/12/16 Insulin Aspart [Novolog Flexpen] 10 units SUBCUT BREAKFAST 09/12/16 Insulin Aspart [Novolog Flexpen] 20 units SUBCUT DINNER 09/12/16 Insulin Aspart [Novolog Flexpen] 20 units SUBCUT LUNCH 09/12/16 Levothyroxine [Synthroid] 100 mcg PO DAILY 09/12/16 Calcium Carbonate/Vitamin D3 [Calcium 500+D Tablet Chew] 1,500 mg PO BID 09/13/17 Cholecalciferol (Vitamin D3) [Vitamin D3] 1,000 unit PO BID 09/13/17 Fexofenadine HCl 180 mg PO DAILY 09/13/17 Cyanocobalamin (Vitamin B-12) [Vitamin B-12] 500 mcg PO DAILY 09/17/17 isosorbide mononitrate ER 60 mg tablet,extended release 24 hr 60 mg PO DAILY 12/01/17 carbamazepine 200 mg tablet 100 mg PO DAILY tab 12/02/17 ferrous sulfate 325 mg (65 mg iron) tablet 325 mg PO DAILY tab 12/02/17 insulin detemir (U-100) 100 unit/mL (3 mL) subcutaneous pen 40 unit SC QHS ml 12/02/17 ondansetron HCl 4 mg tablet 4 mg PO .COMPLEX PRN tab 12/02/17 Docusate Sodium [Colace] 100 mg PO DAILY #20 capsule 12/15/17 Aspirin E.C. [Ecotrin] 81 mg PO DAILY@0800 tablet 12/26/17 Atorvastatin Calcium [Lipitor] 80 mg PO QHS #30 tablet 12/26/17 The following prescriptions were given: Atorvastatin Calcium [Lipitor] 80 mg PO QHS #30 tablet Primary Care Physician: Twan Coy MD [Primary Care Provider] - Test Results: Test results from this visit will be discussed in further detail at your follow- up appointment, if applicable. Please Follow Up With: Neurosurgery When: January 03 (previously scheduled) Please Follow Up With: Shahbaz Young MD - vascular surgery evalulation When: 1 month Please Follow Up With: Cassandra Yo MD - Neurology for TIA follow up. When: 1-2 months Please Follow Up With: Physical Therapy When: 1-2 weeks Proposed Discharge Date: 12/26/17
--- NOTE | 2017-12-26 10:39 | PCM.DC.SUM ---
Discharge Date and Diagnosis - Problem List Patient Problems: Active and Suspected Problems (Last Updated 12/25/17 @ 10:32 by Maurizio Lozano DO) TIA (transient ischemic attack) (Acute) Date of Admission: 12/24/17 Date of Discharge: 12/26/17 - Primary Discharge Diagnosis Active and Suspected Problems (Last Updated 12/25/17 @ 10:32 by Maurizio Lozano DO) TIA (transient ischemic attack) (Acute) Stroke-like symptoms (Acute) - Secondary Discharge Diagnosis Chronic Problems (Last Updated 12/25/17 @ 10:32 by Maurizio Lozano DO) Nonrheumatic aortic (valve) stenosis (Chronic) Pulmonary hypertension (Chronic) Nonrheumatic tricuspid (valve) insufficiency (Chronic) Nonrheumatic mitral (valve) insufficiency (Chronic) Nonrheumatic mitral (valve) prolapse (Chronic) CKD (chronic kidney disease) stage 3, GFR 30-59 ml/min (Chronic) Type 2 diabetes mellitus (Chronic) Essential hypertension (Chronic) Carotid artery stenosis (Chronic) Left Presence of stent in coronary artery (Chronic ~1999) PTCA/Stent to the LAD 1999 Atherosclerotic heart disease of [place] coronary artery without angina pectoris (Chronic) Hyperlipemia (Chronic) Hypothyroidism (Chronic) Hospital Course and Treatment Imaging Results: Clinical Impression(s) from Imaging Studies Head CTA 12/24/17 21:44 IMPRESSION: Normal [place] without a demonstrated aneurysm or hemodynamically significant stenosis. Electronically Signed: Juan Ang DO at 23:25 EDT Tel [phone], Service support , Neck CTA 12/24/17 21:44 IMPRESSION: 1. Question 70-80% stenosis of the left carotid bulb. 2. Minimal atherosclerotic changes of the distal right common carotid artery without stenosis. 3. No other evidence of vascular abnormality. Electronically Signed: Juan Ang DO at 23:34 EDT Tel [phone], Service support , Chest X-Ray 12/24/17 22:08 IMPRESSION: No acute cardiopulmonary findings. Negative for major consolidation, focal atelectasis, cardiomegaly or pleural effusion. Electronically Signed: Sandra Irving MD at 22:26 EDT , Service support , Brain MRI 12/25/17 00:41 IMPRESSION: No acute intracranial abnormality. Stable right CP angle/Meckel's cave likely meningioma. Electronically Signed: Domenic Padilla MD at 14:57 EDT Tel , Service support , [facility]--Neurology. Operations: None Procedures: 2-D Echocardiogram Summary of Care Provided: The patient is a 72 year old F presents with a episode of confusion. Patient was doing some nonsensical things at home, such as when given her insulin needle 10 the put in her mouth as well as negotiate a phone book. Symptoms resolved. Patient has had other episodes of this in the past but less severe. Patient was brought in and evaluated for stroke workup. Patient did have an MRI and CAT scan of her head that were negative., However, patient did note to have 78% stenosis of the left carotid artery. Patient has had known stenosis of her carotid artery and has been following with physicians for this. Neurology recommended vascular surgery evaluation I feel that this can be performed as outpatient for further monitoring and definitive management if necessary. In regards to the patient's confusion this could have been related with TIA as expressed by neurology but patient also does have a meningioma, which patient is aware of and has had gamma knife treatment to it. Did express that this could possibly be an atypical seizure and if she does have further events to be further evaluated. This was also discussed with the patient's at bedside. Additionally, the patient was seen by physical therapy who recommended outpatient therapy for the patient. [] Patient Problems: Active and Suspected Problems (Last Updated 12/25/17 @ 10:32 by Maurizio Lozano DO) TIA (transient ischemic attack) (Acute) Subjective: No new complaints. Purely patient did have some confusion overnight. - Physical Exam General: Alert, Oriented x3, Cooperative, No apparent distress HEENT: Atraumatic, Normocephalic Extremities: No edema, No Calf Tenderness Skin: No rashes, No breakdown Psych/Mental Status: Normal Affect, Appropriate Vital Signs Temp Pulse Resp BP Pulse Ox 36.6 C 85 18 156/98 H 98 12/26/17 06:50 12/26/17 07:02 12/26/17 06:50 12/26/17 06:50 12/26/17 07:19 Oxygen Flow Rate (L/min) 2 Oxygen Delivery Method Room Air Weight: 81.6 kg Body Mass Index (BMI) 35.1 Finger Stick Blood Glucose 97 Intake and Output for Last 24 Hours 12/24/17 12/25/17 12/26/17 23:59 23:59 22:59 Intake Total 1140 / 1140 240 / 240 Balance 1140 / 1140 240 / 240 POC Glucose 12/26/17 12/25/17 12/25/17 06:44 23:47 21:00 POC Glucose 124 H 138 H 86 12/25/17 12/25/17 16:29 12:04 POC Glucose 141 H 276 H Discharge Diet: Low fat/ Low Cholesterol, 1800 Calorie Control Diet Discharge Activity: Return to Normal Activity Call your doctor if you observe: Fever of 101 or Higher, Shortness of breath, - - confusion. staring off. seizure like activity. Home Medications: Medications to take at Discharge Clopidogrel Bisulfate [Plavix] 75 mg PO DAILY 09/12/16 Insulin Aspart [Novolog Flexpen] 10 units SUBCUT BREAKFAST 09/12/16 Insulin Aspart [Novolog Flexpen] 20 units SUBCUT DINNER 09/12/16 Insulin Aspart [Novolog Flexpen] 20 units SUBCUT LUNCH 09/12/16 Levothyroxine [Synthroid] 100 mcg PO DAILY 09/12/16 Calcium Carbonate/Vitamin D3 [Calcium 500+D Tablet Chew] 1,500 mg PO BID 09/13/17 Cholecalciferol (Vitamin D3) [Vitamin D3] 1,000 unit PO BID 09/13/17 Fexofenadine HCl 180 mg PO DAILY 09/13/17 Cyanocobalamin (Vitamin B-12) [Vitamin B-12] 500 mcg PO DAILY 09/17/17 isosorbide mononitrate ER 60 mg tablet,extended release 24 hr 60 mg PO DAILY 12/01/17 carbamazepine 200 mg tablet 100 mg PO DAILY tab 12/02/17 ferrous sulfate 325 mg (65 mg iron) tablet 325 mg PO DAILY tab 12/02/17 insulin detemir (U-100) 100 unit/mL (3 mL) subcutaneous pen 40 unit SC QHS ml 12/02/17 ondansetron HCl 4 mg tablet 4 mg PO .COMPLEX PRN tab 12/02/17 Docusate Sodium [Colace] 100 mg PO DAILY #20 capsule 12/15/17 Aspirin E.C. [Ecotrin] 81 mg PO DAILY@0800 tablet 12/26/17 Atorvastatin Calcium [Lipitor] 80 mg PO QHS #30 tablet 12/26/17 Following Prescrptions Were Given to Patient: Atorvastatin Calcium [Lipitor] 80 mg PO QHS #30 tablet Other Amb Orders: Physical Therapy Evaluation Time Frame: 1 Week, Location: None Selected Primary Care Physician: Twan Coy MD [Primary Care Provider] - Please Follow Up With: Neurosurgery When: January 03 (previously scheduled) Please Follow Up With: Shahbaz Young MD - vascular surgery evalulation When: 1 month Please Follow Up With: Cassandra Yo MD - Neurology for TIA follow up. When: 1-2 months Please Follow Up With: Physical Therapy When: 1-2 weeks Disposition: Home Minutes spent on discharge:: 32 Patient Condition:: Good Medical Necessity - Tobacco Use Smoking Status: Never smoker Tobacco Use: Non-smoker Meaningful Use Info Meaningful Use Diagnoses (Choose all that apply): Ischemic CVA - CVA Therapy Assessed for PT,OT and/or ST?: Yes - Ischemic Stroke Antithrombotic order at d/c?: Yes Dx of Atrial fib/flutter?: Yes Anticoagulant at discharge?: No Reason anticoagulant not ordered: Procedure not Indicated Statins at discharge?: Yes Primary Dx Acute Ischemic CVA?: No IV tPA ordered during stay?: No Reason IV t-PA not ordered: Procedure not Indicated Code Visit Inpatient E&M: 85682 Disch Hosp
--- NOTE | 2017-12-26 10:44 | DS.PCM_ITS ---
Discharge Date and Diagnosis - Problem List Patient Problems: Active and Suspected Problems (Last Updated 12/25/17 @ 10:32 by Maurizio Lozano DO) TIA (transient ischemic attack) (Acute) Date of Admission: 12/24/17 Date of Discharge: 12/26/17 - Primary Discharge Diagnosis Active and Suspected Problems (Last Updated 12/25/17 @ 10:32 by Maurizio Lozano DO) TIA (transient ischemic attack) (Acute) Stroke-like symptoms (Acute) - Secondary Discharge Diagnosis Chronic Problems (Last Updated 12/25/17 @ 10:32 by Maurizio Lozano DO) Nonrheumatic aortic (valve) stenosis (Chronic) Pulmonary hypertension (Chronic) Nonrheumatic tricuspid (valve) insufficiency (Chronic) Nonrheumatic mitral (valve) insufficiency (Chronic) Nonrheumatic mitral (valve) prolapse (Chronic) CKD (chronic kidney disease) stage 3, GFR 30-59 ml/min (Chronic) Type 2 diabetes mellitus (Chronic) Essential hypertension (Chronic) Carotid artery stenosis (Chronic) Left Presence of stent in coronary artery (Chronic ~1999) PTCA/Stent to the LAD 1999 Atherosclerotic heart disease of [place] coronary artery without angina pectoris (Chronic) Hyperlipemia (Chronic) Hypothyroidism (Chronic) Hospital Course and Treatment Imaging Results: Clinical Impression(s) from Imaging Studies Head CTA 12/24/17 21:44 IMPRESSION: Normal tunica-biloxi of [place] without a demonstrated aneurysm or hemodynamically significant stenosis. Electronically Signed: Juan Ang DO at 23:25 EDT Tel [phone], Service support , Neck CTA 12/24/17 21:44 IMPRESSION: 1. Question 70-80% stenosis of the left carotid bulb. 2. Minimal atherosclerotic changes of the distal right common carotid artery without stenosis. 3. No other evidence of vascular abnormality. Electronically Signed: Juan Ang DO at 23:34 EDT Tel [phone], Service support , Chest X-Ray 12/24/17 22:08 IMPRESSION: No acute cardiopulmonary findings. Negative for major consolidation, focal atelectasis, cardiomegaly or pleural effusion. Electronically Signed: Sandra Irving MD at 22:26 EDT , Service support , Brain MRI 12/25/17 00:41 IMPRESSION: No acute intracranial abnormality. Stable right CP angle/Meckel's cave likely meningioma. Electronically Signed: Domenic Padilla MD at 14:57 EDT Tel , Service support , [facility]--Neurology. Operations: None Procedures: 2-D Echocardiogram Summary of Care Provided: The patient is a 72 year old F presents with a episode of confusion. Patient was doing some nonsensical things at home, such as when given her insulin needle 10 the put in her mouth as well as negotiate a phone book. Symptoms resolved. Patient has had other episodes of this in the past but less severe. Patient was brought in and evaluated for stroke workup. Patient did have an MRI and CAT scan of her head that were negative., However, patient did note to have 78% stenosis of the left carotid artery. Patient has had known stenosis of her carotid artery and has been following with physicians for this. Neurology recommended vascular surgery evaluation I feel that this can be performed as outpatient for further monitoring and definitive management if necessary. In regards to the patient's confusion this could have been related with TIA as expressed by neurology but patient also does have a meningioma, which patient is aware of and has had gamma knife treatment to it. Did express that this could possibly be an atypical seizure and if she does have further events to be further evaluated. This was also discussed with the patient's at bedside. Additionally, the patient was seen by physical therapy who recommended outpatient therapy for the patient. [] Patient Problems: Active and Suspected Problems (Last Updated 12/25/17 @ 10:32 by Maurizio Lozano DO) TIA (transient ischemic attack) (Acute) Subjective: No new complaints. Purely patient did have some confusion overnight. - Physical Exam General: Alert, Oriented x3, Cooperative, No apparent distress HEENT: Atraumatic, Normocephalic Extremities: No edema, No Calf Tenderness Skin: No rashes, No breakdown Psych/Mental Status: Normal Affect, Appropriate Vital Signs Temp Pulse Resp BP Pulse Ox 36.6 C 85 18 156/98 H 98 12/26/17 06:50 12/26/17 07:02 12/26/17 06:50 12/26/17 06:50 12/26/17 07:19 Oxygen Flow Rate (L/min) 2 Oxygen Delivery Method Room Air Weight: 81.6 kg Body Mass Index (BMI) 35.1 Finger Stick Blood Glucose 97 Intake and Output for Last 24 Hours 12/24/17 12/25/17 12/26/17 23:59 23:59 22:59 Intake Total 1140 / 1140 240 / 240 Balance 1140 / 1140 240 / 240 POC Glucose 12/26/17 12/25/17 12/25/17 06:44 23:47 21:00 POC Glucose 124 H 138 H 86 12/25/17 12/25/17 16:29 12:04 POC Glucose 141 H 276 H Discharge Diet: Low fat/ Low Cholesterol, 1800 Calorie Control Diet Discharge Activity: Return to Normal Activity Call your doctor if you observe: Fever of 101 or Higher, Shortness of breath, - - confusion. staring off. seizure like activity. Home Medications: Medications to take at Discharge Clopidogrel Bisulfate [Plavix] 75 mg PO DAILY 09/12/16 Insulin Aspart [Novolog Flexpen] 10 units SUBCUT BREAKFAST 09/12/16 Insulin Aspart [Novolog Flexpen] 20 units SUBCUT DINNER 09/12/16 Insulin Aspart [Novolog Flexpen] 20 units SUBCUT LUNCH 09/12/16 Levothyroxine [Synthroid] 100 mcg PO DAILY 09/12/16 Calcium Carbonate/Vitamin D3 [Calcium 500+D Tablet Chew] 1,500 mg PO BID 09/13/17 Cholecalciferol (Vitamin D3) [Vitamin D3] 1,000 unit PO BID 09/13/17 Fexofenadine HCl 180 mg PO DAILY 09/13/17 Cyanocobalamin (Vitamin B-12) [Vitamin B-12] 500 mcg PO DAILY 09/17/17 isosorbide mononitrate ER 60 mg tablet,extended release 24 hr 60 mg PO DAILY 12/01/17 carbamazepine 200 mg tablet 100 mg PO DAILY tab 12/02/17 ferrous sulfate 325 mg (65 mg iron) tablet 325 mg PO DAILY tab 12/02/17 insulin detemir (U-100) 100 unit/mL (3 mL) subcutaneous pen 40 unit SC QHS ml 12/02/17 ondansetron HCl 4 mg tablet 4 mg PO .COMPLEX PRN tab 12/02/17 Docusate Sodium [Colace] 100 mg PO DAILY #20 capsule 12/15/17 Aspirin E.C. [Ecotrin] 81 mg PO DAILY@0800 tablet 12/26/17 Atorvastatin Calcium [Lipitor] 80 mg PO QHS #30 tablet 12/26/17 Following Prescrptions Were Given to Patient: Atorvastatin Calcium [Lipitor] 80 mg PO QHS #30 tablet Other Amb Orders: Physical Therapy Evaluation Time Frame: 1 Week, Location: None Selected Primary Care Physician: Twan Coy MD [Primary Care Provider] - Please Follow Up With: Neurosurgery When: January 03 (previously scheduled) Please Follow Up With: Shahbaz Young MD - vascular surgery evalulation When: 1 month Please Follow Up With: Cassandra Yo MD - Neurology for TIA follow up. When: 1-2 months Please Follow Up With: Physical Therapy When: 1-2 weeks Disposition: Home Minutes spent on discharge:: 32 Patient Condition:: Good Medical Necessity - Tobacco Use Smoking Status: Never smoker Tobacco Use: Non-smoker Meaningful Use Info Meaningful Use Diagnoses (Choose all that apply): Ischemic CVA - CVA Therapy Assessed for PT,OT and/or ST?: Yes - Ischemic Stroke Antithrombotic order at d/c?: Yes Dx of Atrial fib/flutter?: Yes Anticoagulant at discharge?: No Reason anticoagulant not ordered: Procedure not Indicated Statins at discharge?: Yes Primary Dx Acute Ischemic CVA?: No IV tPA ordered during stay?: No Reason IV t-PA not ordered: Procedure not Indicated Code Visit Inpatient E&M: 45391 Disch Hosp
--- NOTE | 2017-12-27 13:41 | CASEMGMT ---
ALEKSANDR ALVARES DC PHONE CALL DISCHARGE DATE: 12/26/17 DISCHARGE DISPOSITION: Home LACE/STRATA: 01/25 Intro role of CM to pt via phone. Explained purpose of call. Pt states she is feeling better, does not have questions re: instructions, prescription or f/u. ALEKSANDR ALVARES reviewed list of recommended f/u appts. Pt states she will be doing these this afternoon and does not need assistance. No suggestions for improving care, pt states everything was great. ALEKSANDR ALVARES thanked her for using [facility]. Chandler LOWERYN RN ACM
== END 2017-12-26 11:31 | disposition home or self-care (01) | DRG 69 ==
LOC: ED 23:52 → PCU 12-25 00:34
PROVIDERS: Admitting Provider Hospitalist; Emergency Provider Emergency Medicine; Family Provider Family Medicine; PCP Family Medicine
DX: G45.9 Transient cerebral ischemic attack, unspecified (principal); N25.81 Secondary hyperparathyroidism of renal origin; I65.22 Occlusion and stenosis of left carotid artery; R51 Headache; I35.0 Nonrheumatic aortic (valve) stenosis; I27.20 Pulmonary hypertension, unspecified; I36.1 Nonrheumatic tricuspid (valve) insufficiency; Z95.5 Presence of coronary angioplasty implant and graft; I12.9 Hypertensive chronic kidney disease with stage 1 through stage 4 chronic kidney disease, or unspecified chronic kidney disease; E11.22 Type 2 diabetes mellitus with diabetic chronic kidney disease; N18.3 Chronic kidney disease, stage 3 (moderate); Z79.4 Long term (current) use of insulin; I25.10 Atherosclerotic heart disease of native coronary artery without angina pectoris; E78.5 Hyperlipidemia, unspecified; E03.9 Hypothyroidism, unspecified; I34.1 Nonrheumatic mitral (valve) prolapse; D63.1 Anemia in chronic kidney disease
CPT/HCPCS: 36415; 70496; 70498; 70551; 71045; 80048; 80061; 80069; 81001; 82043; 82306; 82570; 82962; 83036; 83970; 84484; 85025; 85610; 85652; 85730; 92523; 93005; 93306; 97162; 97166; 99285; J7030; Q9967; A4216; J2405

== ENCOUNTER 2017-12-29 11:30 | Outpatient (RCR) | payer MEDICARE, OTHER, SELFPAY ==
--- NOTE | 2017-08-09 11:06 | HP.PTEVAL_ITS ---
Patient's Visit Information KWAME ZUÑIGA is a 72 year old F referred to Physical Therapy by Madhav Saba MD with a diagnosis of Balance. Date of Evaluation: 08/09/17 Physical Therapist: Susan You - Visit Plan Frequency: 2x /Week Duration: 4 Weeks Plan: Balance assessment (faxed to for approval), strength and core s/s. - Subjective Subjective: Dr. Saba recommended that she come see us for a balance assessment. She has been falling and they are not sure what its from. One second she is standing and then she is down. Last time she fell was 2 weeks ago and hit her head- went to the ER- and everything came back normal. Has been taking Tylenol for the discomfort. She has a meningionma in the brain- was diagnosed last September- saw a neurosurgeon- and was told it was not an option for surgery- did gamma knife radiation in November- did not shrink the tumor but it maintained the same size. Did a scan at the hospital last time she was there- blood work (platelets were low) which should not be an issue. Dr. Saba is running more tests to see if there was anything that would change her balance. When she falls she always goes backwards. Falls at least 1x a week- most of the time she is with her and he is able to pick her up from the floor. Last fall was Wednesday night onto her bed. But no pain is associated with the falls except for whatever she hits. Did not have any falls until she had the gamma knife radiation. Some MD's think its from meds, others from the procedure, and some just don't know. Sleep: not disturbed. No N/T in the toes but MD thinks she may have neuropathy. PMHx/meds: no changes since she was in the hospital a few weeks ago. - Objective Posture: FH, RS, increased kyphosis. Gait: antalgic- wide ALEISHA- decreased stephanie and poor heel/toe pattern. Palpation: not tender. ROM: WFL in all planes of lumbar and LE. Strength: Core: poor, Hip: 4-/5 throughout Knee: 4/5, Ankle: 4/5. HR/TR: able with significant UE a for balance. Sitting Balance: static: fair Dynamic: fair minus- patient had to use UE for righting herself when manual muscle testing without feet on the ground. Standing Balance: Static : fair minus, Dynamic: poor,. unable to SLS without significant UE support, Unable to tandem stance. looses balance posterior. Sensation/Reflex: WNl - Goals Goal 1:: Patient will be I with HEP and progression Goal Time Frame: 4-6 Weeks Goal 2:: Patient will ambulate >300 feet with a normalized pattern and LRD Goal Time Frame: 4-6 Weeks Goal 3:: Patient will improve standing balance to fair minus Goal Time Frame: 4-6 Weeks Goal 4:: Patient will report no falls for 2 weeks Goal Time Frame: 4-6 Weeks - Rehabilitation Potential Physical Therapy Diagnosis: Patient presents with hypomobility- she has decreased strength and poor balance in sitting and standing leading to increase falls. Rehabilitation Potential: Fair - Anticipated Interventions Patient/Client Instruction: Educate patient on: Benefits of Fitness Program For the Purpose of:: To increase tolerance to activity/condition/position Therapeutic Exercise to Include: Strength training, Endurance training, Balance training, Agility training, Body mechanics, Postural training, Flexibilty training, Gait and locomotor training, Dynamic Lumbar Stabilization, Scapular Strength/Stabilization For the Purpose of:: To improve muscle performance and motor function Functional Training to Include: ADL Training, Gait training For the Purpose of:: To improve ability to perform ADL's Thank you for the opportunity to evaluate your patient. For Medicare and Medicare HMO plans, please review the plan of care and approve it. It will need to be FAXED BACK to us at [phone] for Medicare purposes. Please let me know if there are questions or concerns regarding this plan of care. Physician Signature: Date:
--- NOTE | 2017-08-16 10:10 | HP.PTCOM ---
PT Communication Note 08/16/[address] Madhav Saba MD , Thank you for the referral of Daniela Webber to [facility] for balance assessment. I have enclosed a copy of the results for your review. In summation, she scored low on the Limits of Stability on forward excursion and control. She also scored low on the Sensory Organization Test on vestibular and center of gravity alignment. I will add exercises to aaddress these deficits to her plan of care. Please call if you have questions. Thank you. Sincerely, Maurizio Fairbanks DPT, OC Contact Information
--- NOTE | 2017-08-16 10:13 | HP.PTCOM_ITS ---
PT Communication Note 08/16/[address] Madhav Saba MD , Thank you for the referral of Daniela Webber to [facility] for balance assessment. I have enclosed a copy of the results for your review. In summation, she scored low on the Limits of Stability on forward excursion and control. She also scored low on the Sensory Organization Test on vestibular and center of gravity alignment. I will add exercises to aaddress these deficits to her plan of care. Please call if you have questions. Thank you. Sincerely, Maurizio Fairbanks DPT, OC Contact Information
--- NOTE | 2017-09-08 09:25 | HP.PTREVAL_ITS ---
Madhav Saba MD, It has been my pleasure to treat KWAME ZUÑIGA over the last 8 visits for Balance. Please see the progress note below for an update on the physical therapy plan of care! Subjective: Patient reports that she feels better- she feels that her balance is improved. She went to [place] and fell 2x- slid out of the bed and then fell when she was dancing. Fell getting into bed about a week ago. Objective/Function: Posture: FH, RS, increased kyphosis. Gait: slightly antalgic- wide ALEISHA- decreased stephanie. Palpation: not tender. ROM: WFL in all planes of lumbar and LE. Strength: Core: fair, Hip: 4/5 throughout Knee: 4/5, Ankle: 4/5. HR/TR: able with significant UE a for balance. Sitting Balance: static: fair Dynamic: fair Standing Balance: Static: fair , Dynamic: fair minus,. unable to SLS without significant UE support, Unable to tandem stance. looses balance posterior. Sensation/Reflex: WNl Plan Plan: Continue with POC 2x a week for 4 weeks- patient is more upbeat and moving better Goals Goal 1:: Patient will be I with HEP and progression Goal Time Frame: 4-6 Weeks Goal Progress: Progressing Goal 2:: Patient will ambulate >300 feet with a normalized pattern and LRD Goal Time Frame: 4-6 Weeks Goal Progress: Progressing Goal 3:: Patient will improve standing balance to fair minus Goal Time Frame: 4-6 Weeks Goal Progress: Progressing Goal 4:: Patient will report no falls for 2 weeks Goal Time Frame: 4-6 Weeks Goal Progress: Progressing Anticipated Interventions Patient/Client Instruction: Educate patient on: Benefits of Fitness Program For the Purpose of:: To increase tolerance to activity/condition/position Therapeutic Exercise to Include: Strength training, Endurance training, Balance training, Agility training, Body mechanics, Postural training, Flexibilty training, Gait and locomotor training, Dynamic Lumbar Stabilization, Scapular Strength/Stabilization For the Purpose of:: To improve muscle performance and motor function Functional Training to Include: ADL Training, Gait training For the Purpose of:: To improve ability to perform ADL's Please do not hesitate to contact me at [phone] by phone or Fax: if you have questions or concerns regarding this new plan of care! Sincerely, Susan You
--- NOTE | 2017-11-05 10:23 | HP.OTEVAL ---
Patient's Visit Information KWAME ZUÑIGA is a 72 year old F, referred to Occupational Therapy by Madhav Saba MD, with a diagnosis of left distal radius fx. Date of Evaluation: 11/05/17 Occupational Therapist: Kala Negron, ALONA/Roberth, CHT - Subjective Subjective: September 13, 2017 pt feel getting into bed- her took her to the ER and on September 20, 2017. pt was casted until Oct.29. pt did get a wrist brace to wear when she is out but not in the home. At this time has been helping her with all her BADLs and IADLS. - Pain left wrist 2 Pain Intensity Range: 1, 2 - ROM Wrist: right 60/40 left 45/30 - Strength Liquid Floor And Wall Applier: right 25# left 5# Lateral Pinch: right 4# left 2# Tripod Pinch: right 7# left 1# Strength Comments: pt demo with weak bilateral roll forming supervisor and pinch strength - Sensation Sensation Comments: denies - Hand/Wrist Evaluation Total Score of Pain & Functional Sections: 56 - Goals Goal:: Pt will demo a increase in left roll forming supervisor strength to 25# to increase pts ind. with BADLs and IADLS. Pt will demo a increase in left pinch strength by 4# to increase pts use of bilateral hands for meal prep and bathing tasks. Goal:: pt will demo left wrist ROM equal to right by d/c to increase pts ind. with IADLS. pt will demo the ability to form a composite fist to manipulate coins/cards by d/c Goal:: pt will report pain no greater than 1/10 with use of left UE for BADLs and IADLS by D/C - Rehabilitation General Assessment: PT demo with decrease in left wrist ROM and strength- this is limiting pts ind. with BADLs and IADLS. pt would benefit skilled OT services 2-3x week for 4-6 weeks to gain functional use of left UE for BADls and IADLS Rehabilitation Potential: Good - Anticipated Interventions Anticipated Interventions: A/AAROM/PROM, Strengthening, Scar Care, Triggerpoint Release, Modalities - Visit Plan Frequency: 2-3x /Week Duration: 6 Weeks TEXT: Thank you for the opportunity to evaluate your patient. For Medicare and Medicare HMO plans, please review the plan of care and approve it. It will need to be FAXED BACK to us at [phone] for Medicare purposes. Please let me know if there are questions or concerns regarding this plan of care. Physician Signature: Date:
--- NOTE | 2017-11-05 11:08 | HP.PTREVAL_ITS ---
Madhav Saba MD, It has been my pleasure to treat KWAME ZUÑIGA over the last 9 visits for Balance. Please see the progress note below for an update on the physical therapy plan of care! Subjective: Patient reports that she broke her wrist and has basically been sitting since then. Anytime she stands her is by her side and goes with her everywhere. Her balance is really bad again. No pain just frustrated by lack of mobility and balance Objective/Function: Posture: FH, RS, increased kyphosis. Gait: antalgic- wide ALEISHA- decreased stephanie and poor heel/toe pattern. 2 episodes of LOB with righting by the PT. Sit to stand: CGA by therapist and mild LOB Palpation: not tender. ROM: WFL in all planes of lumbar and LE. Strength: Core: poor, Hip : 4-/5 throughout Knee: 4/5, Ankle: 4/5. HR/TR: able with significant UE a for balance. Sitting Balance: static: fair Dynamic: fair with feet on the ground. Standing Balance: Static: fair minus, Dynamic: poor,. unable to SLS without significant UE support, Unable to tandem stance. looses balance posterior. Sensation/Reflex: WNl Plan Plan: Patient is back to prior to re-evaluation- re-establish balance and endurance for safety Goals Goal 1:: Patient will be I with HEP and progression Goal Time Frame: 4-6 Weeks Goal Progress: Progressing Goal 2:: Patient will ambulate >300 feet with a normalized pattern and LRD Goal Time Frame: 4-6 Weeks Goal Progress: Progressing Goal 3:: Patient will improve standing balance to fair minus Goal Time Frame: 4-6 Weeks Goal Progress: Progressing Goal 4:: Patient will report no falls for 2 weeks Goal Time Frame: 4-6 Weeks Goal Progress: Progressing Anticipated Interventions Patient/Client Instruction: Educate patient on: Benefits of Fitness Program For the Purpose of:: To increase tolerance to activity/condition/position Therapeutic Exercise to Include: Strength training, Endurance training, Balance training, Agility training, Body mechanics, Postural training, Flexibilty training, Gait and locomotor training, Dynamic Lumbar Stabilization, Scapular Strength/Stabilization For the Purpose of:: To improve muscle performance and motor function Functional Training to Include: ADL Training, Gait training For the Purpose of:: To improve ability to perform ADL's Please do not hesitate to contact me at [phone] by phone or Fax: if you have questions or concerns regarding this new plan of care! Sincerely, Susan You
--- NOTE | 2017-12-07 16:47 | HP.PTREVAL ---
Madhav Saba MD, It has been my pleasure to treat KWAME ZUÑIGA over the last 14 visits for Balance. Please see the progress note below for an update on the physical therapy plan of care! Subjective: Overall feel like doing pretty good, feels like not doing as much therapy at home. Not doing much exercise at home as getting back into things. Saw orthopedist a couple weeks ago and discussed anti-nausea medication. Medication has been helping for the most part, except for last Wednesday when vomitted at home. Saw physician for nausea. Pt. not allowing her to drive. Pt. wanting to play euchre again but restricting activity due to fear of transitioning from table. helping pt. dress and do tasks around the house although pt. thinks she able to do more. Sleeps okay at night, not woken up by pain. No current pain. Jaw pain 6/10 worst this past week. Using 4 wheel walker in public or transport chair. Use walker at home for most part; trying to walk more without it at home. Has been getting help with stairs in garage; been doing alone lately. No recent falls. Taking BP everyday. Not taking BP medication anymore because physician thinks may be falling due to low BP. Objective/Function: Gait: ambulates with 4 wheel walker normal stephanie, good control. Posture: slightly flexed trunk when seated. ROM: LE WFL. Able to toe and heel raise with bilat. UE support. Balance: 10 seconds bilat 1 UE. Strength: hip 4/5, knee ext. 5/5, knee flex. 4/5, ankle 4+/5 Plan Plan: Cont. PT focusing on LE strength and balance, walking with LRD. Goals Goal 1:: Patient will be I with HEP and progression Goal Time Frame: 4-6 Weeks Goal Progress: Progressing Goal 2:: Patient will ambulate >300 feet with a normalized pattern and LRD Goal Time Frame: 4-6 Weeks Goal Progress: Progressing Goal 3:: Patient will improve standing balance to fair minus Goal Time Frame: 4-6 Weeks Goal Progress: Progressing Goal 4:: Patient will report no falls for 2 weeks Goal Time Frame: 4-6 Weeks Goal Progress: Goal Met Anticipated Interventions Patient/Client Instruction: Educate patient on: Benefits of Fitness Program For the Purpose of:: To increase tolerance to activity/condition/position Therapeutic Exercise to Include: Strength training, Endurance training, Balance training, Agility training, Body mechanics, Postural training, Flexibilty training, Gait and locomotor training, Dynamic Lumbar Stabilization, Scapular Strength/Stabilization For the Purpose of:: To improve muscle performance and motor function Functional Training to Include: ADL Training, Gait training For the Purpose of:: To improve ability to perform ADL's Please do not hesitate to contact me at [phone] by phone or if you have questions or concerns regarding this new plan of care! Sincerely, Susan You
--- NOTE | 2017-12-20 10:23 | HP.OTREVAL ---
Madhav Saba MD, It has been my pleasure to treat KWAME ZUÑIGA over the last 10 visits for left distal radius fx. Please see the progress note below for an update on the occupational therapy plan of care! Subjective: pt. arrives and states that she is not feeling well today and that she does not want to participate in therapy. Objective/Function: industrial hire sales assistant strength L 15 # and R 45 #. lateral grasp L 9# and R is 12 #. Tripod grasp in L is 9# and R is 13#. R wrist ROM: 65/45 and L wrist ROM: 53/53. pt. has made gains, she does cancel and re-schedule visits often, she does indicate motivation to cont. receiving OT services. Pt would benefit from cont. skilled OT services to cont. to increase pts functional strength and use of left UE for BADLS and IADLS. Plan Frequency: 2-3x /Week Duration: 4 Weeks Plan: cont POC, provide HEP to complete at home Goals - Goals Goal:: Pt will demo a increase in left industrial hire sales assistant strength to 25# to increase pts ind. with BADLs and IADLS. Pt will demo a increase in left pinch strength by 4# to increase pts use of bilateral hands for meal prep and bathing tasks. Goal:: pt will demo left wrist ROM equal to right by d/c to increase pts ind. with IADLS. pt will demo the ability to form a composite fist to manipulate coins/cards by d/c Goal:: pt will report pain no greater than 1/10 with use of left UE for BADLs and IADLS by D/C Anticipated Interventions Anticipated Interventions: A/AAROM/PROM, Strengthening, Scar Care, Triggerpoint Release, Modalities Please do not hesitate to contact me at [phone] by phone or if you have questions or concerns regarding this new plan of care! Sincerely, Kala Negron, OTR/L, CHT
--- NOTE | 2018-01-19 10:34 | HP.PT.NRP ---
HP - Discharge Summary (1) - Patient Information KWAME ZUÑIGA was seen in my office for initial evaluation on 08/09/17. The following Plan of Care was established for this patient: Initial Frequency: 2x /Week Initial Duration: 4 Weeks - Anticipated Interventions Patient/Client Instruction: Educate patient on: Benefits of Fitness Program For the Purpose of:: To increase tolerance to activity/condition/position Therapeutic Exercise to Include: Strength training, Endurance training, Balance training, Agility training, Body mechanics, Postural training, Flexibilty training, Gait and locomotor training, Dynamic Lumbar Stabilization, Scapular Strength/Stabilization For the Purpose of:: To improve muscle performance and motor function Functional Training to Include: ADL Training, Gait training For the Purpose of:: To improve ability to perform ADL's This patient was last seen in our office . Pertinent comments regarding their Physical therapy will appear below: Patient has cancelled multiple apts and is appropriate for d/c At this point I will be discontinuing this patient from physical therapy. I would be happy to see this patient again in the future if found appropriate by the physician. Thank you! Susan You
--- NOTE | 2018-01-24 09:25 | HP.OT.NRP ---
HP - Discharge Summary - Patient Information KWAME ZUÑIGA was seen in my office for initial evaluation on 11/05/17. The following Plan of Care was established for this patient: Initial Frequency: 2-3x /Week Initial Duration: 4 Weeks Plan: cont POC - Anticipated Interventions Anticipated Interventions: A/AAROM/PROM, Strengthening, Scar Care, Triggerpoint Release, Modalities This patient was last seen in our office 12/29/17. Pertinent comments regarding their Occupational therapy will appear below: pt. has made gains in her strength and ROM, however, she does cancel and re-schedule visits often d/t difficulties with health. Pt would benefit from cont. skilled OT services to cont. to increase pts functional strength and use of left UE for BADLS and IADLS, however, pt. is d/c d/t several cancellations. During therapy sessions, pt. was educated about HEP. 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 I would be happy to see this patient again in the future if found appropriate by the physician. Thank you! Kala Negron, OTR/L, CHT
== END 2017-12-29 19:00 | disposition home or self-care (01) ==
LOC: PT 11:30
PROVIDERS: Family Provider Family Medicine; PCP Family Medicine; Visit Provider Psychiatry & Neurology Neurology
DX: G62.9 Polyneuropathy, unspecified (principal); R26.89 Other abnormalities of gait and mobility
CPT/HCPCS: 97110; 97116; 97140; 97162; 97164; 97166; 97168; 97530; 97750

== ENCOUNTER → 2018-01-24 10:01 | Outpatient (CLI) | payer MEDICARE, OTHER, SELFPAY ==
[2017-12-26 00:04] VITALS: BMI 35.1
--- NOTE | 2018-01-24 10:05 | CDU_ITS ---
Reason For Study: Carotid stenosis Rt. Velocities/BP Lt. Velocities/BP Prox CCA 63.3/10.6 cm/sec. Prox CCA 76.8/11.7 cm/sec. Mid CCA 55.7/12.9 cm/sec. Mid CCA 73.9/17.0 cm/sec. Dist CCA 70.9/18.2 cm/sec. Dist CCA 69.2/13.5 cm/sec. Prox ICA 62.1/11.7 cm/sec. Prox ICA 165.0/28.5 cm/sec. Mid ICA 51.0/13.5 cm/sec. Mid ICA 184.0/31.4 cm/sec. Dist ICA 62.1/13.5 cm/sec. Dist ICA 125.0/24.6 cm/sec. Rt. ICA/CCA = 1.1. Lt. ICA/CCA = 2.5. Prox ECA 90.3/8.8 cm/sec. Prox ECA 366.0/20.2 cm/sec. Rt. Vert. 65.7/14.1 cm/sec. Lt. Vert. 45.7/10.6 cm/sec. Right Extracranial There is intimal thickening but no significant atherosclerotic plaque noted in the right common carotid artery. There is heterogeneous, irregular atherosclerotic plaque noted in the right internal carotid artery. There is heterogeneous, irregular atherosclerotic plaque noted in the right external carotid artery. Antegrade flow is noted in the right vertebral artery. Left Extracranial There is intimal thickening but no significant atherosclerotic plaque noted in the left common carotid artery. There is heterogeneous, irregular atherosclerotic plaque noted in the left internal carotid artery. There is heterogeneous, irregular atherosclerotic plaque noted in the left external carotid artery. Antegrade flow is noted in the left vertebral artery. Procedure Carotid Duplex [id number]. Exam performed in department. Interpretation Summary Post operative changes of the right carotid bulb and proximal internal carotid with <50% stenosis Normal flow right external carotid Extensive plague at the proximal left internal and external carotids with 50-69% stenosis. Severe stenosis left external carotid Patent and antegrade vertebrals bilaterally. Ordering Physician: Shahbaz Young Referring Physician: Shahbaz Young Performed By: Crystal Jensen RVT
--- OUTSIDE RECORDS SUMMARY | 2018-03-19 14:44 | XMS RPT_ITS ---
:1945 Author Organization OHIP Support Name Relationship Address Phone R Unavailable Unavailable Unavailable [place], [place] Unavailable [address] + [place] [address] R Unavailable Unavailable [place], [place] Unavailable [address] + [place] [address] R Unavailable Unavailable [place] Unavailable [address] + [place] [address] R Unavailable Unavailable [place] Unavailable [address] + [place] [address] R Unavailable Unavailable [place] Unavailable [address] + [place] [address] R Unavailable Unavailable [place], [place] Unavailable [address] + [place] [address] R Unavailable Unavailable [place], [place] Unavailable [address] + [place] [address] R Unavailable Unavailable [place] Unavailable [address] + [place] [address] R Unavailable Unavailable [place], [place] Unavailable [address] + [place] [address] R Unavailable Unavailable [place], [place] Unavailable [address] + [place] [address] R Unavailable Unavailable [place], [place] Unavailable [address] + [place] [address] R Unavailable Unavailable [place], [place] Unavailable [address] + [place] [address] R Unavailable Unavailable [place], [place] Unavailable [address] + [place] [address] R Unavailable Unavailable Unavailable [place], [place] Unavailable [address] + [place] [address] R Unavailable Unavailable [place], [place] Unavailable [address] + [place] [address] R Unavailable Unavailable [place], [place] Unavailable [address] + [place] [address] R Unavailable Unavailable [place], [place] Unavailable [address] + [place] [address] R Unavailable Unavailable Unavailable [place], [place] Unavailable [address] + [place] [address] R Unavailable Unavailable [place], [place] Unavailable [address] + [place] [address] R Unavailable Unavailable [place], [place] Unavailable [address] + [place] [address] R Unavailable Unavailable [place], [place] Unavailable [address] + [place] [address] R Unavailable Unavailable [place], [place] Unavailable [address] + [place] [address] R Unavailable Unavailable [place], [place] Unavailable [address] + [place] [address] R Unavailable Unavailable [place], [place] Unavailable [address] + [place] [address] R Unavailable Unavailable [place], [place] Unavailable [address] + [place] [address] Care Team Providers Name Role Phone KALLIE DEY Referring Unavailable KALLIE DEY Referring Unavailable [facility] Primary Care Unavailable Shahbaz Young Attending Unavailable Shahbaz Young Referring Unavailable Zbigniew, Twan Primary Care Unavailable Zbigniew Twan Attending Unavailable Zbigniew, Twan Primary Care Unavailable Arianne, Jayaprakash Attending Unavailable Arianne, Jayaprakash Referring Unavailable Zbigniew, Twan Primary Care Unavailable Arianne, Jayaprakash Attending Unavailable Arianne, Jayaprakash Referring Unavailable Zbigniew, Twan Primary Care Unavailable LA STEIN Consulting Unavailable Arianne, Jayaprakash Attending Unavailable Arianne, Jayaprakash Referring Unavailable Zbigniew, Twan Primary Care Unavailable AL STEIN Attending Unavailable AL STEIN Referring Unavailable Zbigniew, Twan Primary Care Unavailable Zbigniew, Twan Primary Care Unavailable Dash Arzate Attending Unavailable Madhav Saba Attending Unavailable Madhav Saba Referring Unavailable Zbigniew, Twan Primary Care Unavailable Madhav Saba Attending Unavailable Wandy, Madhav Referring Unavailable Zbigniew, Twan Primary Care Unavailable Zbigniew, Twan Primary Care Unavailable Ted Yang Attending Unavailable Regan, Gaston Attending Unavailable Regan, Gaston Referring Unavailable Zbigniew, Twan Primary Care Unavailable Scott De La Rosa Attending Unavailable Regan, Gaston Referring Unavailable Kala Santacruz Attending Unavailable Scott De La Rosa Attending Unavailable Zbigniew, Twan Referring Unavailable Zbigniew, Twan Primary Care Unavailable Bolivar Chaudhari Attending Unavailable ArianneLucho clemente Attending Unavailable Arianne, Lucho Referring Unavailable Zbigniew, Twan Primary Care Unavailable Zbigniew, Twan Primary Care Unavailable Agyeeugeneg, Manoj Admitting Unavailable Sanaz, Cassandra S. Consulting Unavailable Maurizio Lozano Attending Unavailable Agyeponailin, Manoj Admitting Unavailable AgurszulapongManoj Attending Unavailable [facility], Twan Primary Care Unavailable Sanaz, Cassandra S. Consulting Unavailable Manoj Deluna Consulting Unavailable Regi, Manoj Admitting Unavailable Maurizio Lozano Attending Unavailable Zbigniew, Twan Primary Care Unavailable Sanaz, Cassandra S. Consulting Unavailable Maurizio Lozano Consulting Unavailable Regi, Manoj Admitting Unavailable Maurizio Lozano Attending Unavailable [facility], Twan Primary Care Unavailable Sanaz, Cassandra S. Consulting Unavailable Maurizio Lozano Consulting Unavailable Manuel Verduzco Attending Unavailable Regi, Manoj Referring Unavailable Shahbaz Young Attending Unavailable Hector, Shahbaz Referring Unavailable Zbigniew, Twan Primary Care Unavailable Zbigniew, Twan Attending Unavailable Zbigniew, Twan Referring Unavailable Zbigniew, Twan Primary Care Unavailable CegabbylShahbaz Attending Unavailable Cebul, Shahbaz Referring Unavailable Zbigniew, Twan Primary Care Unavailable Cebul, Shahbaz Consulting Unavailable Hector, Shahbaz Attending Unavailable Zbigniew, Twan Referring Unavailable PROBLEMS PROBLEMS DATE TYPE CONDITION / CODE ATTENDING STATUS SOURCE Unknown I65.22 - Occlusion and Shahbaz Young Active [place] 8 stenosis of left Community carotid artery / Hospital I65.22(ICD-10) Repository Unknown G62.9 - Polyneuropathy, Madhav Saba Active [place] 8 unspecified / Community G62.9(ICD-10) Hospital Repository Unknown R26.89 - Other Madhav Saba Active [place] 8 abnormalities of gait Community and mobility / Hospital R26.89(ICD-10) Repository Unknown R94.31 - Abnormal DaxManuel Active [place] 8 electrocardiogram [ECG] [facility] [EKG] / R94.31(ICD-10) Hospital Repository Unknown N18.3 - Chronic kidney Arianne, Active [place] 8 disease, stage 3 [facility] (moderate) / Hospital N18.3(ICD-10) Repository Unknown D63.1 - Anemia in Arianne, Active [place] 8 chronic kidney disease [facility] / D63.1(ICD-10) Hospital Repository Unknown N25.81 - Secondary Arianne, Active [place] 8 hyperparathyroidism of [facility] renal origin / Hospital N25.81(ICD-10) Repository Unknown R51 - Headache / FaraBolivar Active [place] 8 R51(ICD-10) [facility] Hospital Repository Unknown I10 - Essential MoodisScott lemons Active [place] 8 (primary) hypertension Community / I10(ICD-10) Hospital Repository Unknown I25.10 - MoodScott moser Active [place] 8 Atherosclerotic heart Community disease of [place] Hospital coronary artery without Repository angina pectoris / I25.10(ICD-10) Unknown Z95.5 - Presence of Scott De La Rosa Active [place] 8 coronary angioplasty Community implant and graft / Hospital Z95.5(ICD-10) Repository Unknown S52.509A - Unspecified Ted Yang Active [place] 8 fracture of the lower Community end of unspecified Hospital radius, initial Repository encounter for closed fracture / S52.509A(ICD-10) Unknown D32.9 - Benign neoplasm Madhav Saba Active [place] 8 of meninges, Community unspecified / Hospital D32.9(ICD-10) Repository Active Benign neoplasm of NA Active [place] 8 meninges, unspecified / Clinic Other D32.9(ICD-10) [place] Repository Admitting Unknown / UNK(Unknown) NA Active [facility] 8 diagnosis [facility] Repository Unknown R60.9 - Edema, Twan Coy Active [place] 8 unspecified / Community R60.9(ICD-10) Hospital Repository Unknown E03.9 - Hypothyroidism, Twan Coy Active [place] 8 unspecified / Community E03.9(ICD-10) Hospital Repository PROCEDURES PROCEDURES No Procedure Records FoundRESULTS RESULTS OPERATIVE REPORT Observed: 02/07/2018 Status: F Source: [place] 5:29 PM [facility] REPOSITORY [facility] Medical Records Department [address] [place] [address] Operative Report 02/07/18 0739 MR#: [id number] Acct: [id number] Name: KWAME WEBBER Rep #: [id number] : 1945 72 From: Shahbaz Young MD PCP: Twan Coy MD Status: DEP [facility] Y Location: [facility] Problem List (1) Carotid stenosis, left Status: Chronic Report of Operation Date of Procedure: 02/07/18 Pre-Operative Diagnosis: Symptomatic stenosis left extracranial internal carotid Post-Operative Diagnosis: Symptomatic stenosis left extra cranial internal carotid. Malignant hypertension Surgery/Procedure Performed:: Right brachial arterial line placement. Aborted carotid endarterectomy secondary to severe hypertension Description of Surgical Findings:: Timeout and informed consent was obtained. At the bedside patient was noted to have a left wrist fracture and so no attempt was Artline at that place. The right radial pulse was diminutive. The I did prep the right wrist looked with ultrasound use 1% lidocaine total I attempted to attempts at gaining access to the right radial artery with a Angiocath. I was not able to get some major wire advancement. That site was aborted. I then was able to prep the right antecubital space. With ultrasound would identify the right brachial artery. Again 1% lidocaine was instilled and an Arrow kit Angiocath was inserted and advanced and a 20-gauge aero kit Angiocath was inserted. Was secured to skin with 3-0 silk OpSite dressing was applied was applied to a pressure bag. Waveform was obtained. The patient had been quite anxious throughout this procedure blood pressure was rather elevated. She was subsequently taken to the operating room after approximately 45 minutes rest however blood pressure remains markedly elevated at 260 over greater than 100. Dr. Glenn Weeman recommended cancellation of the procedure with recommendations for medical maximization of her care. She will be rescheduled once her blood pressure is more tightly controlled. Shahbaz Young M.D., F.A.C.S. 02/07/18 1729 <Electronically signed by Shahbaz Young MD> Date Shahbaz Young MD CC: Shahbaz Young MD; Twan Coy MD Signed BEDSIDE GLUCOSE Collected: 02/07/2018 Status: F Source: [place] 5:56 AM [facility] REPOSITORY TYPE CODE TESTS RESULT OUT OF REFERENCE UNITS RANGE LAB L501.080 70-110 mg/dL High BEDSIDE GLU 128 Result Comment: MANAGEMENT OF PATIENT CARE PER NURSING PROTOCOL Performed By: #### L501.080 #### [facility] Point of Care [address] [place] [address] 12 LEAD ELECTROCARDIOGRAM Observed: 02/04/2018 Status: F Source: [place] 9:58 AM [facility] REPOSITORY [facility] Cardiovascular Services [address] [place] [address] E[address] - [facility] 02/02/18 0844 MR#: [id number] Acct: [id number] Name: KWAME WEBBER Rep #: [id number] : 1945 72 From: Manuel Verduzco MD Attending Dr: Shahbaz Young MD Status: PRE IN Ordering Dr: Shahbaz Young MD Date: 02/02/18 Location: [facility] Sex: F C Admitted: Test Reason : Blood Pressure : / mmHG Vent. Rate : 085 BPM Atrial Rate : 085 BPM P-R Int : 148 ms QRS Dur : 100 ms QT Int : 334 ms P-R-T Axes : 016 -45 085 degrees QTc Int : 397 ms Normal sinus rhythm Incomplete right bundle branch block Left anterior fascicular block Voltage criteria for left ventricular hypertrophy Nonspecific ST and T wave abnormality Abnormal ECG Confirmed by DAX RUIZ, MANUEL ([id number]), editor at large MAYURI BLOUNT ([id number]) on 02/04/2018 9:57:57 AM Referred By: Shahbaz Young Confirmed By:MANUEL VERDUZCO MD 02/04/1858 Date Manuel Verduzco MD CC: Shahbaz Young MD; Twan Coy MD Date Dictated: 02/02/18843 Date Transcribed: 02/02/18843 Engineering Technical Specialist: Signed CBC-COMPLETE BLOOD CNT Collected: 02/02/2018 Status: F Source: [place] NO DIFF 8:51 AM [facility] REPOSITORY TYPE CODE TESTS RESULT OUT OF RANGE REFERENCE UNITS LAB L100.1000 4.4-11.0 K/mm3 Normal WBC 9.0 LAB L100.1200 4.2-5.4 M/mm3 Normal RBC 4.22 LAB L100.1300 12.0-15.0 g/dl Normal HGB 13.5 LAB L100.1400 37-47 % Normal HCT 39.2 LAB L100.1500 81-99 fL Normal MCV 92.9 LAB L100.1600 27.0-32.0 pg Normal MCH 32.0 LAB L100.1700 32-36 g/gl Normal MCHC 34.4 LAB L100.1810 11.6-14.6 % Normal RDW CV 12.8 LAB L100.1820 35.1-43.9 fl Normal RDW SD 42.5 LAB L100.1900 150-450 K/mm3 Normal PLT 173 LAB L100.2000 6.2-12.0 fl Normal MPV 11.3 Performed By: #### L100.0500 #### [facility] [address] [place], [address] BASIC METABOLIC Collected: 02/02/2018 Status: F Source: [place] PROFILE (BMP) 8:51 AM [facility] REPOSITORY TYPE CODE TESTS RESULT OUT OF RANGE REFERENCE UNITS LAB L501.0100 74-106 mg/dL High GLU 146 Result Comment: Fasting Glucose result greater than or equal to 126 mg/dL suggests DIABETES MELLITUS per A.D.A. criteria. Please note revised GLUCOSE reference range effective 2017. LAB L501.1000 7-18 mg/dL Normal BUN 14 LAB L501.1100 0.55-1.02 mg/dL High CREAT,SERUM 1.07 Result Comment: The validity of the calculated GFR AND GFRAA in patients over 70 years has not been determined. Clinical correlation is essential. LAB L501.1110 >60 mL/min Low EST GFR 53 Result Comment: Non- GFR Calc LAB L501.1115 >60 mL/min Normal EST GFR - AA 64 Result Comment: GFR Calc LAB L501.1255 ml/min Normal Estimated CRCL 33.13 LAB L501.1300 10-20 RATIO Normal BUN/CRE 13.1 LAB L501.2200 8.5-10 mg/dL Normal .1 CA 8.9 LAB L501.5300 136-14 mmol/L Normal 5 NA 145 LAB L501.5600 3.5-5. mmol/L Normal 1 K 3.9 LAB L501.5900 98-107 mmol/L Normal CL 105 LAB L501.6100 21.0-3 mmol/L Normal 2.0 CO2 29.0 LAB L501.6200 5-15 Normal GAP 11 Performed By: #### L500.2500 #### [facility] [address] [place], [place], [address] SURGERY VISIT REPORT Observed: 01/25/2018 Status: F Source: [place] 4:20 PM [facility] REPOSITORY [facility] [address] [place] [address] OFFICE VISIT Date of Service: 01/25/18 MR#: [id number] Acct: [id number] Name: KWAME WEBBER Melo Rep #: [id number] : 1945 Provider: Shahbaz Young MD Age/Sex: 72/F Location: [facility] Status: Signed Intake Vital Signs01/25/18 Height 5 ft 01/25/18 Weight: 175 lb 5 oz 01/25/18 Body Mass Index (BMI) 34.2 Intake Visit Reasons: Carotid Stenosis/[facility] F/U 12/24 Chief Complaint: left carotid stenosis, hx right CEA Door Installer Required: No Is patient in pain?: No Allergies adhesive tape Allergy (Verified 01/25/18 12:55) Rash Penicillins Allergy (Verified 01/25/18 12:55) Rash Medications Clopidogrel Bisulfate [Plavix] 75 mg PO DAILY 09/12/16 [History Confirmed 01/25/18] Insulin Aspart [Novolog Flexpen] 10 units SUBCUT BREAKFAST 09/12/16 [History Confirmed 01/25/18] Insulin Aspart [Novolog Flexpen] 20 units SUBCUT DINNER 09/12/16 [History Confirmed 01/25/18] Insulin Aspart [Novolog Flexpen] 20 units SUBCUT LUNCH 09/12/16 [History Confirmed 01/25/18] Levothyroxine [Synthroid] 100 mcg PO DAILY 09/12/16 [History Confirmed 01/25/18] Calcium Carbonate/Vitamin D3 [Calcium 500+D Tablet Chew] 1,500 mg PO BID 09/13/17 [History Confirmed 01/25/18] Cholecalciferol (Vitamin D3) [Vitamin D3] 1,000 unit PO BID 09/13/17 [History Confirmed 01/25/18] Fexofenadine HCl 180 mg PO DAILY 09/13/17 [History Confirmed 01/25/18] Cyanocobalamin (Vitamin B-12) [Vitamin B-12] 500 mcg PO DAILY 09/17/17 [History Confirmed 01/25/18] carbamazepine 200 mg tablet 100 mg PO DAILY tab 12/02/17 [History Confirmed 01/25/18] ferrous sulfate 325 mg (65 mg iron) tablet 325 mg PO DAILY tab 12/02/17 [History Confirmed 01/25/18] insulin detemir (U-100) 100 unit/mL (3 mL) subcutaneous pen 40 unit SC QHS ml 12/02/17 [History Confirmed 01/25/18] ondansetron HCl 4 mg tablet 4 mg PO .COMPLEX PRN tab 12/02/17 [History Confirmed 01/25/18] Docusate Sodium [Colace] 100 mg PO DAILY #20 cap 12/15/17 [Rx Confirmed 01/25/18] Aspirin E.C. [Ecotrin] 81 mg PO DAILY@0800 tab 12/26/17 [Rx Confirmed 01/25/18] Atorvastatin Calcium [Lipitor] 80 mg PO QHS #30 tab 12/26/17 [Rx Confirmed 01/25/18] Is last menstrual period known: No Post menopausal: Yes Patient : No PFSH Medical History Nonrheumatic aortic (valve) stenosis (Chronic) Pulmonary hypertension (Chronic) Nonrheumatic tricuspid (valve) insufficiency (Chronic) Nonrheumatic mitral (valve) insufficiency (Chronic) Nonrheumatic mitral (valve) prolapse (Chronic) CKD (chronic kidney disease) stage 3, GFR 30-59 ml/min (Chronic) Type 2 diabetes mellitus (Chronic) Essential hypertension (Chronic) Carotid artery stenosis (Chronic) Presence of stent in coronary artery (Chronic 2000) 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) Hyperlipemia (Chronic) Hypothyroidism (Chronic) GERD (gastroesophageal reflux disease) (Acute) History of uterine cancer (Acute) Trigeminal neuralgia (Acute) Meningioma (Chronic) Surgical History Presence of coronary angioplasty implant and graft (Chronic 1999) History of cataract surgery (Resolved) History of hysterectomy (Resolved) History of right-sided carotid endarterectomy (Resolved) S/P wrist surgery (Resolved) Family History Mother Heart disease Diabetes Cancer uterine Brother Cancer lung Diabetes Sister Cancer lung Diabetes Social History Smoking Status: Never smoker alcohol intake: never details: occasional HPI HPI HPI: KWAME WEBBER, is a 72 F who presents to the office today for surgical consultation regarding TIA and left extracranial carotid artery occlusive disease. Patient is referred by the [facility] hospitalist service as well as her primary care physician Dr. Twan Coy and a written copy of my surgical consult will be returned to him. She was admitted to the [facility] December 24 - December 26, 2017. She presented with strokelike symptoms/TIA. Her symptoms were in expressive speech disorder with a feeling of confusion. That rapidly abated. On December 25, 2017 showed an MRI of the brain. No acute intracranial abnormality. 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 She has had that previously treated with gamma knife. On December 24, 2017 a CTA of the brain showed a small left vertebral artery and a dominant right vertebral. Nonvisualization of the right posterior communicating artery. Nonvisualization of the left posterior communicating artery. Calcific plaque at the right cavernous carotid. Cavernous plaque of the left cavernous carotid without luminal narrowing. [place] otherwise normal. She also had a neck CT a suggesting 70-80% stenosis of the left carotid bulb. On January 24, 2018 she had a bilateral carotid duplex exam. There is evidence of postoperative changes of the right extracranial carotid bulb and internal carotid with less than 50% stenosis. There is felt to be 50-69% stenosis of the left internal carotid with a high-grade area of stenosis within the left external carotid. The vertebrals are felt to be patent and antegrade. I have reviewed her CT of the neck which she suggests a possibly higher degree of stenosis particularly at the left carotid bulb. The patient states that approximately 10 years ago due to unbeknownst symptoms she had a right carotid endarterectomy. She states that she does not recall having a stroke at that time. The patient has been evaluated by neurology Dr. Yo and there is felt to be hemodynamically significant stenosis of left internal carotid. 1 of her additional medical comorbidities include December 24, 2017 evidence of a BUN of 30 and a creatinine of 1.24 with an estimated GFR of 45 She has a type II diabetic. She has history of coronary stenting approximately the year 1999. Her distributor operator is Dr. Scott De La Rosa. It is of note that the patient was on clopidogrel at the time of this most recent episode. She has had aspirin added to her regimen. ROS General General: No weight change, appetite, fatigue, colon cancer, breast cancer or weakness Additional Details: history of uterine CA HEENT HEENT: No difficulty swallowing, eye injury, eye surgery, swollen glands or hoarseness Endo Endocrine: Yes diabetes mellitus; no thyroid disease, thyroid cancer, Hair loss, heat intolerance or cold intolerance Cardio Cardiovascular: Yes high blood pressure and heart stent; no murmur, pacemaker, heart disease, atrial fibrillation, heart attack, palpitations, shortness of breat with exertion or chest pain Resp Respiratory: No shortness of breath, No sleep apnea, No cough, No COPD, No asthma, No emphysema, No wheezing Rashi Hematologic: Yes blood thinners, No blood disorders, No bleeding, No anemia, No blood clots Neuro Neurologic: No system reviewed and no additional complaints, except as docu, No as per HPI, No abnormal walking, No abnormal hearing, No abnormal movements, No abnormal speech, No behavioral changes, No burning sensations, No confusion, No seizure-like activity, No unsteadiness, No dizziness, No localized weakness, No frequent falls, No headache(s), No lack of coordination, No loss of vision, No memory loss, No numbness, No other visual disturbances, No radiating pain, No restless legs, No sensory deficit, No fainting, No tingling, No tremor(s), No weakness, Yes other (TIA) Exam Const General: cooperative, comfortable, no acute distress Nutritional Appearance: overweight Orientation: alert, awake, oriented x3 HENMT Head: normal to inspection Chest Chest palpation AND inspection: normal inspection of the chest Resp Effort AND Inspection: normal respiratory effort Auscultation: clear to auscultation bilaterally Cardio Rate: regular rate Rhythm: regular rhythm Heart Sounds: no murmurs GI Palpation: soft, no hepatosplenomegaly Neuro General: alert, awake, oriented x3 Extrem Other: No calf tenderness Psych Affect: normal affect Assessment AND Plan Problems 1. Carotid stenosis, left I65.22 2. TIA (transient ischemic attack) G45.9 Plan 72-year-old female. She is had an episode of confusion and dysarthria. MRI and CT of the brain do not demonstrate a focal deficit in her symptoms cleared. CTA of the neck with follow-up carotid duplex exam certainly demonstrate significant disease of the left carotid bulb proximal internal carotid. The patient has had a remote right carotid enterectomy as well. She has chronic renal insufficiency. I believe that it is very likely that her left carotid is the source of her recent TIA. I propose for her left carotid endarterectomy with bovine patch angioplasty and arterial line monitoring and indeed off discussed the technique, benefits, risks, alternatives. She has had an opportunity to ask and have questions answered. I believe that she is not a good candidate for stenting particularly in light of her chronic renal insufficiency. She has had an opting to ask their questions answered. She is well aware that this carries a operative risk. Both she and her are desiring to proceed. We will have her hold her Plavix just one day prior to the operation while continuing her daily aspirin. Shahbaz Young M.D., F.A.C.S. CC: Dr. Twan Coy Orders Orders: Coding Level of Care Code Comprehensive,moderate Diagnoses Carotid stenosis, left I65.22 TIA (transient ischemic attack) G45.9 01/25/18 1620 <Electronically signed by Shahbaz Yougn MD> Date Shahbaz Logan Signature: Date (if applicable) CC: Twan Coy MD OT D/C OF NON Observed: 01/24/2018 Status: F Source: [place] RETURNING PT 6:51 PM [facility] REPOSITORY [facility] [address] [place] [address] Fax REHABILITATION SERVICES DISCHARGE SUMMARY MR#: [id number] Acct: [id number] Name: KWAME WEBBER Rep #: [id number] : 1945 72 From: Kala Negron OTR/L, CHT Referring Dr.: Madhav Saba MD Status: REG RCR Eval Date: Discharge Date: HP - Discharge Summary - Patient Information KWAME WEBBER was seen in my office for initial evaluation on 11/05/17. The following Plan of Care was established for this patient: Initial Frequency: 2-3x /Week Initial Duration: 4 Weeks Plan: cont POC - Anticipated Interventions Anticipated Interventions: A/AAROM/PROM, Strengthening, Scar Care, Triggerpoint Release, Modalities This patient was last seen in our office 12/29/17. Pertinent comments regarding their Occupational therapy will appear below: pt. has made gains in her strength and ROM, however, she does cancel and re-schedule visits often d/t difficulties with health. Pt would benefit from cont. skilled OT services to cont. to increase pts functional strength and use of left UE for BADLS and IADLS, however, pt. is d/c d/t several cancellations. During therapy sessions, pt. was educated about HEP. 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 I would be happy to see this patient again in the future if found appropriate by the physician. Thank you! Kala Negron, OTR/L, CHT <Electronically signed by Kala Negron OTR/Roberth, CHT> 01/24/18 1851 CC: Madhav Saba MD; Twan Coy MD MK Signed CAROTID DUPLEX Observed: 01/24/2018 Status: F Source: [place] ULTRASOUND 5:18 PM [facility] REPOSITORY [facility] Cardiovascular Services [address] [place] [address] Carotid Duplex Ultrasound 01/24/18 1007 MR#: [id number] Acct: [id number] Name: KWAME WEBBER Rep #: [id number] : 1945 72 From: Shahbaz Young MD Attending Dr: Shahbaz Young MD Status: REG CLI Ordering Dr: Shahbaz Young MD Date: 01/24/18 Location: [facility] Sex: F C Admitted: Reason For Study: Carotid stenosis Rt. Velocities/BP Lt. Velocities/BP Prox CCA 63.3/10.6 cm/sec. Prox CCA 76.8/11.7 cm/sec. Mid CCA 55.7/12.9 cm/sec. Mid CCA 73.9/17.0 cm/sec. Dist CCA 70.9/18.2 cm/sec. Dist CCA 69.2/13.5 cm/sec. Prox ICA 62.1/11.7 cm/sec. Prox ICA 165.0/28.5 cm/sec. Mid ICA 51.0/13.5 cm/sec. Mid ICA 184.0/31.4 cm/sec. Dist ICA 62.1/13.5 cm/sec. Dist ICA 125.0/24.6 cm/sec. Rt. ICA/CCA = 1.1. Lt. ICA/CCA = 2.5. Prox ECA 90.3/8.8 cm/sec. Prox ECA 366.0/20.2 cm/sec. Rt. Vert. 65.7/14.1 cm/sec. Lt. Vert. 45.7/10.6 cm/sec. Right Extracranial There is intimal thickening but no significant atherosclerotic plaque noted in the right common carotid artery. There is heterogeneous, irregular atherosclerotic plaque noted in the right internal carotid artery. There is heterogeneous, irregular atherosclerotic plaque noted in the right external carotid artery. Antegrade flow is noted in the right vertebral artery. Left Extracranial There is intimal thickening but no significant atherosclerotic plaque noted in the left common carotid artery. There is heterogeneous, irregular atherosclerotic plaque noted in the left internal carotid artery. There is heterogeneous, irregular atherosclerotic plaque noted in the left external carotid artery. Antegrade flow is noted in the left vertebral artery. Procedure Carotid Duplex 10291. Exam performed in department. Interpretation Summary Post operative changes of the right carotid bulb and proximal internal carotid with <50% stenosis Normal flow right external carotid Extensive plague at the proximal left internal and external carotids with 50-69% stenosis. Severe stenosis left external carotid Patent and antegrade vertebrals bilaterally. Ordering Physician: Shahbaz Young Referring Physician: Shahbaz Young Performed By: Crystal Jensen RVT 01/24/181716 Date Shahbaz Young MD CC: Shahbaz Young MD; Twan Coy MD Date Dictated: 01/24/18 1007 Date Transcribed: 01/24/181716 Engineering Technical Specialist: Signed CONSULTATION Observed: 01/07/2018 Status: F Source: [place] 4:00 PM [facility] REPOSITORY [facility] Medical Records Department [address] [place] [address] Consultation 12/25/17 1549 MR#: [id number] Acct: [id number] Name: KWAME WEBBER Rep #: [id number] : 1945 72 From: Cassandra Yo MD PCP: Twan Coy MD Status: DIS IN Y [id number] Problem List (1) TIA (transient ischemic attack) Status: Acute Reason for Consult Date of Consultation: 12/25/17 Reason for Consultation: TIA History of Present Illness: The patient is a 72 year old CF with PMH HTN, HLD, DM, TN on Carbamazepine, CAD s/p stents, CKD, hypothyroidism admitted with episode of confusion and dysarthria. Per patient she was at home yesterday (12/24/17), was about have dinner that neighbour had brought, but she does not remember anything after that for about half hour and per patient she was told that she was not acting right, had dysarthria and her could not understand her speech, has had GIRON for about 2 weeks, mostly bifrontal, without any photophobia, phonophobia, vision loss, was about 5/10 intensity, per patient she never gets GIRON at baseline, her symptoms had resolved and by the time she was in the ED her NIHSS was 0 per ED documentation. At present she denies any GIRON, dizziness, focal motor weakness, sensory loss, speech disturbances or visual disturbances. Is on Plavix at baseline, lives with , uses walker to ambulate, had falls in the past, last fall was about 7 weeks ago and does not drive. [] Past Medical History Past Medical History (Chronic Problems): Chronic Problems (Last Updated 12/25/17 @ 10:32 by Maurizio Lozano DO) Nonrheumatic aortic (valve) stenosis (Chronic) Pulmonary hypertension (Chronic) Nonrheumatic tricuspid (valve) insufficiency (Chronic) Nonrheumatic mitral (valve) insufficiency (Chronic) Nonrheumatic mitral (valve) prolapse (Chronic) CKD (chronic kidney disease) stage 3, GFR 30-59 ml/min (Chronic) Type 2 diabetes mellitus (Chronic) Essential hypertension (Chronic) Carotid artery stenosis (Chronic) Left Presence of stent in coronary artery (Chronic 1999) PTCA/Stent to the LAD 1999 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) Hyperlipemia (Chronic) Hypothyroidism (Chronic) Medical History: Medical History (Last Updated 12/25/17 @ 10:32 by Maurizio Lozano DO) Nonrheumatic aortic (valve) stenosis (Chronic) I35.0 Pulmonary hypertension (Chronic) I27.20 Nonrheumatic tricuspid (valve) insufficiency (Chronic) I36.1 Nonrheumatic mitral (valve) insufficiency (Chronic) I34.0 Nonrheumatic mitral (valve) prolapse (Chronic) I34.1 CKD (chronic kidney disease) stage 3, GFR 30-59 ml/min (Chronic) N18.3 Type 2 diabetes mellitus (Chronic) E11.9 Essential hypertension (Chronic) I10 Carotid artery stenosis (Chronic) I65.29 Left Presence of stent in coronary artery (Chronic) Onset Date: 1999 Z95.5 PTCA/Stent to the LAD 1999 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) I25.10 Hyperlipemia (Chronic) E78.5 Hypothyroidism (Chronic) E03.9 GERD (gastroesophageal reflux disease) K21.9 Trigeminal neuralgia G50.0 Meningioma D32.9 Allergies adhesive tape Allergy (Verified 12/24/17 21:47) Rash Penicillins Allergy (Verified 12/24/17 21:47) Rash Home Medications: Ambulatory Orders Medication Instructions Recorded Clopidogrel Bisulfate [Plavix] 75 mg PO DAILY 09/12/16 Insulin Aspart [Novolog Flexpen 10 units SUBCUT BREAKFAST 09/12/16 Surgical History: Surgical History (Last Reviewed 12/25/17 @ 00:42 by Manoj Deluna MD) Presence of coronary angioplasty implant and graft Onset Date: 1999 Z95.5 PTCA/Stent to the LAD 1999 History of cataract surgery Z98.49 History of hysterectomy Z90.710 History of right-sided carotid endarterectomy Z98.890 S/P wrist surgery Z98.890 ORIF Lives: Spouse/ Significant Other Smoking Status: Never smoker Alcohol: None Drugs: None - *Family History Maternal Family History: Family History (Last Reviewed 12/25/17 @ 00:43 by Manoj Deluna MD) Mother Heart disease Paternal Family History: Family History (Last Reviewed 12/25/17 @ 00:43 by Manoj Deluna MD) Mother Heart disease Review of Systems Constitutional: Reports: - - complete ROS negative except as documented in HPI Patient Problems: Active and Suspected Problems (Last Updated 12/25/17 @ 10:32 by Maurizio Lozano DO) TIA (transient ischemic attack) (Acute) Stroke-like symptoms (Acute) - Physical Exam General: Alert HEENT: Normocephalic Neck: Supple Lungs: Normal air movement Cardiovascular: Normal S1, Normal S2 Abdomen: Bowel Sounds Present Extremities: No cyanosis Musculoskeletal: No Tenderness to Palpation of Joints or Extremities Neurological: Cranial nerves II-XII grossly intact, Neuro grossly intact, Motor Exam 5/5 strength throughout, Muscle tone normal, Sensory exam intact to light touch and pain, Coordination normal, - - Relfexes + B/L B/S/T/K/A, gait deferred Psych/Mental Status: Normal Affect Vital Signs Temp Pulse Resp BP Pulse Ox 98.0 F 72 16 128/67 H 97 12/25/17 13:00 12/25/17 13:00 12/25/17 13:00 12/25/17 13:00 12/25/17 13:00 Oxygen Flow Rate (L/min) 2 Oxygen Delivery Method Room Air Weight: 81.6 kg Body Mass Index (BMI) 35.1 Finger Stick Blood Glucose 97 Intake and Output for Last 24 Hours Intake Total 660 / 660 Balance 660 / 660 Laboratory Tests Past 24 Hrs WBC 10.4 RBC 4.34 Hgb 13.2 Hct 40.2 MCV 92.6 MCH 30.4 WBC RBC Hgb POC Glucose POC Glucose 276 H 167 H 97 Assessment/Plan All Active Problems (Last Updated 12/25/17 @ 10:32 by Maurizio Lozano DO) TIA (transient ischemic attack) (Acute) Stroke-like symptoms (Acute) The patient is a 72 year old CF with PMH HTN, HLD, DM, TN on Carbamazepine, CAD s/p stents, CKD, hypothyroidism admitted with episode of confusion and speech disturbances. Per patient she was at home yesterday (12/24/17), was about have dinner that neighbor had brought, but she does not remember anything after that for about half hour and per patient she was told that she was not acting right, had speech disturbances and her could not understand her speech, has had GIRON for about 2 weeks, mostly bifrontal, without any photophobia, phonophobia, vision loss, was about 5/10 intensity, per patient she never gets GIRON at baseline, her symptoms had resolved and by the time she was in the ED her NIHSS was 0 per ED documentation. At present she denies any GIRON, dizziness, focal motor weakness, sensory loss, speech disturbances or visual disturbances. Is on Plavix at baseline, lives with , uses walker to ambulate, had falls in the past, last fall was about 7 weeks ago and does not drive. MRI brain done on admission did not show any stroke, CTA head/neck showed left ICA 70- 80% stenosis Impression Probable TIA Acute confusional episode with speech disturbances Carotid stenosis- Left ICA 70-80% stenosis Plan -ASA and Plavix. Dual AP for 3 months. Bleeding risks discussed with patient in detail -Change Pravastatin to Lipitor 80 mg PO q hs -MRI brain reviewed- no acute stroke -CTA head/neck- Left ICA 70-80% stenosis -LDL-57, Gjt5m-2.1% -TTE-EF-60%, normal LA size -Recommend Vascular surgery consult prior to discharge for possible CEA -Avoid dehydration and avoid hypotension -PT/OT and ST -GI/DVT prophylaxis -Stroke risk factors discussed and stroke education provided -Further medical management per hospitalist -Fall precautions -Please follow up with her Neurologist Dr. Saba in 2-3 weeks as outpatient -Thank you for allowing us to participate in patient's care and management Code Visit Inpatient E AND M: [id number] Init Hosp L3 01/07/18 1600 <Electronically signed by Cassandra Yo MD> Date Cassandra Yo MD Cosigner Signature (if applicable): Date CC: Aurora Yo MD; Twan Coy MD Signed 12 LEAD ELECTROCARDIOGRAM Observed: 12/30/2017 Status: F Source: [place] 4:08 PM [facility] REPOSITORY [facility] Cardiovascular Services [address] [place] [address] 12 Lead EKG 12/25/17 0632 MR#: [id number] Acct: [id number] Name: KWAME WEBBER Rep #: [id number] : 1945 72 From: Manuel Verduzco MD Attending Dr: Maurizio Lozano DO Status: DIS IN Ordering Dr: Maurizio Lozano DO Date: 12/25/17 Location: [facility] Sex: F C Admitted: 12/25/17 Test Reason : ARRHYTHMIA Blood Pressure : / mmHG Vent. Rate : 063 BPM Atrial Rate : 060 BPM P-R Int : 000 ms QRS Dur : 096 ms QT Int : 436 ms P-R-T Axes : 000 -46 -30 degrees QTc Int : 446 ms Junctional rhythm Left anterior fascicular block Voltage criteria for left ventricular hypertrophy Nonspecific T wave abnormality Abnormal ECG Confirmed by MANUEL VERDUZCO MD ([id number]), editor at large MAYURI BLOUNT ([id number]) on 12/30/2017 4:07:48 PM Referred By: Kayleigh South Confirmed By:MANUEL VERDUZCO MD 12/30/17 1607 Date Manuel Verduzco MD CC: Maurizio Lozano DO; Twan Coy MD Signed 12 LEAD ELECTROCARDIOGRAM Observed: 12/30/2017 Status: F Source: [place] 4:07 PM [facility] REPOSITORY [facility] Cardiovascular Services [address] [place] [id number] 12 Lead EKG 12/25/17 1655 MR#: [id number] Acct: [id number] Name: KWAME WEBBER Rep #: [id number] : 1945 72 From: Manuel Verduzco MD Attending Dr: Maurizio Lozano DO Status: DIS IN Ordering Dr: Manoj Deluna MD Date: 12/25/17 Location: U Sex: F C Admitted: 12/25/17 Test Reason : JUNCTIONAL RHYTHM Blood Pressure : / mmHG Vent. Rate : 062 BPM Atrial Rate : 077 BPM P-R Int : 168 ms QRS Dur : 100 ms QT Int : 440 ms P-R-T Axes : 000 -48 -74 degrees QTc Int : 446 ms Sinus rhythm with marked sinus arrhythmia Left anterior fascicular block Voltage criteria for left ventricular hypertrophy Nonspecific ST and T wave abnormality Abnormal ECG When compared with ECG of 25-DEC-2017 06:32, MANUAL COMPARISON REQUIRED, DATA IS UNCONFIRMED Confirmed by MANUEL VERDUZCO MD ([id number]), editor at large MAYURI BLOUNT ([id number]) on 12/30/2017 4:07:11 PM Referred By: Kayleigh South Confirmed By:MANUEL VERDUZCO MD 12/30/17 1607 Date Manuel Verduzco MD CC: Maurizio oLzano DO; Manoj Deluna MD; Twan Coy MD Signed 12 LEAD ELECTROCARDIOGRAM Observed: 12/27/2017 Status: F Source: [place] 3:20 PM [facility] REPOSITORY [facility] Cardiovascular Services [address] [place] [address] 12 Lead EKG 12/24/17 2131 MR#: [id number] Acct: [id number] Name: KWAME WEBBER Rep #: [id number] : 1945 72 From: Manuel Verduzco MD Attending Dr: Maurizio Lozano DO Status: DIS IN Ordering Dr: Ana Bender MD Date: 12/24/17 Location: [facility] Sex: F C Admitted: 12/25/17 Test Reason : TIA SYMPTOMS Blood Pressure : / mmHG Vent. Rate : 077 BPM Atrial Rate : 074 BPM P-R Int : 000 ms QRS Dur : 102 ms QT Int : 342 ms P-R-T Axes : 000 -47 107 degrees QTc Int : 387 ms Atrial fibrillation Incomplete right bundle branch block Left anterior fascicular block Left ventricular hypertrophy with repolarization abnormality Abnormal ECG Confirmed by MANUEL VERDUZCO MD ([id number]), editor at large MAYURI BLOUNT ([id number]) on 12/27/2017 3:19:53 PM Referred By: Kayleihg South Confirmed By:MANUEL VERDUZCO MD 12/27/17 1519 Date Manuel Verduzco MD CC: Ana Bender MD; Maurizio Lozano DO; Twan Coy MD Signed DISCHARGE SUMMARY Observed: 12/26/2017 Status: F Source: [place] 10:45 AM [facility] REPOSITORY [facility] Medical Records Department [address] [place] [address] Discharge Summary 12/26/17 1039 MR#: [id number] Acct: [id number] Name: KWAME WEBBER Rep #: [id number] : 1945 72 From: Maurizio Lozano DO PCP: Twan Coy MD Status: ADM IN Y Location: [place] [address] Discharge Date and Diagnosis - Problem List Patient Problems: Active and Suspected Problems (Last Updated 12/25/17 @ 10:32 by Maurizio Lozano DO) TIA (transient ischemic attack) (Acute) Date of Admission: 12/24/17 Date of Discharge: 12/26/17 - Primary Discharge Diagnosis Active and Suspected Problems (Last Updated 12/25/17 @ 10:32 by Maurizio Lozano DO) TIA (transient ischemic attack) (Acute) Stroke-like symptoms (Acute) - Secondary Discharge Diagnosis Chronic Problems (Last Updated 12/25/17 @ 10:32 by Maurizio Lozano DO) Nonrheumatic aortic (valve) stenosis (Chronic) Pulmonary hypertension (Chronic) Nonrheumatic tricuspid (valve) insufficiency (Chronic) Nonrheumatic mitral (valve) insufficiency (Chronic) Nonrheumatic mitral (valve) prolapse (Chronic) CKD (chronic kidney disease) stage 3, GFR 30-59 ml/min (Chronic) Type 2 diabetes mellitus (Chronic) Essential hypertension (Chronic) Carotid artery stenosis (Chronic) Left Presence of stent in coronary artery (Chronic 1999) PTCA/Stent to the LAD 1999 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) Hyperlipemia (Chronic) Hypothyroidism (Chronic) Hospital Course and Treatment Imaging Results: Clinical Impression(s) from Imaging Studies Head CTA 12/24/17 21:44 IMPRESSION: Normal [place] of [place] without a demonstrated aneurysm or hemodynamically significant stenosis. Electronically Signed: Juan Ang DO at 23:25 EDT Tel [phone], Service support , Neck CTA 12/24/17 21:44 IMPRESSION: 1. Question 70-80% stenosis of the left carotid bulb. 2. Minimal atherosclerotic changes of the distal right common carotid artery without stenosis. 3. No other evidence of vascular abnormality. Electronically Signed: Juan Ang DO at 23:34 EDT Tel [phone], Service support , Chest X-Ray 12/24/17 22:08 IMPRESSION: No acute cardiopulmonary findings. Negative for major consolidation, focal atelectasis, cardiomegaly or pleural effusion. Electronically Signed: Sandra Irving MD at 22:26 EDT , Service support , Brain MRI 12/25/17 00:41 IMPRESSION: No acute intracranial abnormality. Stable right CP angle/Meckel's cave likely meningioma. Electronically Signed: Domenic Padilla MD at 14:57 EDT Tel , Service support , [facility]--Neurology. Operations: None Procedures: 2-D Echocardiogram Summary of Care Provided: The patient is a 72 year old F presents with a episode of confusion. Patient was doing some nonsensical things at home, such as when given her insulin needle 10 the put in her mouth as well as negotiate a phone book. Symptoms resolved. Patient has had other episodes of this in the past but less severe. Patient was brought in and evaluated for stroke workup. Patient did have an MRI and CAT scan of her head that were negative., However, patient did note to have 78% stenosis of the left carotid artery. Patient has had known stenosis of her carotid artery and has been following with physicians for this. Neurology recommended vascular surgery evaluation I feel that this can be performed as outpatient for further monitoring and definitive management if necessary. In regards to the patient's confusion this could have been related with TIA as expressed by neurology but patient also does have a meningioma, which patient is aware of and has had gamma knife treatment to it. Did express that this could possibly be an atypical seizure and if she does have further events to be further evaluated. This was also discussed with the patient's at bedside. Additionally, the patient was seen by physical therapy who recommended outpatient therapy for the patient. [] Patient Problems: Active and Suspected Problems (Last Updated 12/25/17 @ 10:32 by Maurizio Lozano DO) TIA (transient ischemic attack) (Acute) Subjective: No new complaints. Purely patient did have some confusion overnight. - Physical Exam General: Alert, Oriented x3, Cooperative, No apparent distress HEENT: Atraumatic, Normocephalic Extremities: No edema, No Calf Tenderness Skin: No rashes, No breakdown Psych/Mental Status: Normal Affect, Appropriate Vital Signs Temp Pulse Resp BP Pulse Ox 36.6 C 85 18 156/98 H 98 12/26/17 06:50 12/26/17 07:02 12/26/17 06:50 12/26/17 06:50 12/26/17 07:19 Oxygen Flow Rate (L/min) 2 Oxygen Delivery Method Room Air Weight: 81.6 kg Body Mass Index (BMI) 35.1 Finger Stick Blood Glucose 97 Intake and Output for Last 24 Hours Intake Total 1140 / 1140 240 / 240 Balance 1140 / 1140 240 / 240 POC Glucose POC Glucose 124 H 138 H 86 POC Glucose 141 H 276 H Discharge Diet: Low fat/ Low Cholesterol, 1800 Calorie Control Diet Discharge Activity: Return to Normal Activity Call your doctor if you observe: Fever of 101 or Higher, Shortness of breath, - - confusion. staring off. seizure like activity. Home Medications: Medications to take at Discharge Clopidogrel Bisulfate [Plavix] 75 mg PO DAILY 09/12/16 Insulin Aspart [Novolog Flexpen] 10 units SUBCUT BREAKFAST 09/12/16 Insulin Aspart [Novolog Flexpen] 20 units SUBCUT DINNER 09/12/16 Insulin Aspart [Novolog Flexpen] 20 units SUBCUT LUNCH 09/12/16 Levothyroxine [Synthroid] 100 mcg PO DAILY 09/12/16 Calcium Carbonate/Vitamin D3 [Calcium 500+D Tablet Chew] 1,500 mg PO BID 09/13/17 Cholecalciferol (Vitamin D3) [Vitamin D3] 1,000 unit PO BID 09/13/17 Fexofenadine HCl 180 mg PO DAILY 09/13/17 Cyanocobalamin (Vitamin B-12) [Vitamin B-12] 500 mcg PO DAILY 09/17/17 isosorbide mononitrate ER 60 mg tablet,extended release 24 hr 60 mg PO DAILY 12/01/17 carbamazepine 200 mg tablet 100 mg PO DAILY tab 12/02/17 ferrous sulfate 325 mg (65 mg iron) tablet 325 mg PO DAILY tab 12/02/17 insulin detemir (U-100) 100 unit/mL (3 mL) subcutaneous pen 40 unit SC QHS ml 12/02/17 ondansetron HCl 4 mg tablet 4 mg PO .COMPLEX PRN tab 12/02/17 Docusate Sodium [Colace] 100 mg PO DAILY #20 capsule 12/15/17 Aspirin E.C. [Ecotrin] 81 mg PO DAILY@0800 tablet 12/26/17 Atorvastatin Calcium [Lipitor] 80 mg PO QHS #30 tablet 12/26/17 Following Prescrptions Were Given to Patient: Atorvastatin Calcium [Lipitor] 80 mg PO QHS #30 tablet Other Amb Orders: Physical Therapy Evaluation Time Frame: 1 Week, Location: None Selected Primary Care Physician: Twan Coy MD [Primary Care Provider] - Please Follow Up With: Neurosurgery When: January 03 (previously scheduled) Please Follow Up With: Shahbaz Young MD - vascular surgery evalulation When: 1 month Please Follow Up With: Cassandra Yo MD - Neurology for TIA follow up. When: 1-2 months Please Follow Up With: Physical Therapy When: 1-2 weeks Disposition: Home Minutes spent on discharge:: 32 Patient Condition:: Good Medical Necessity - Tobacco Use Smoking Status: Never smoker Tobacco Use: Non-smoker Meaningful Use Info Meaningful Use Diagnoses (Choose all that apply): Ischemic CVA - CVA Therapy Assessed for PT,OT and/or ST?: Yes - Ischemic Stroke Antithrombotic order at d/c?: Yes Dx of Atrial fib/flutter?: Yes Anticoagulant at discharge?: No Reason anticoagulant not ordered: Procedure not Indicated Statins at discharge?: Yes Primary Dx Acute Ischemic CVA?: No IV tPA ordered during stay?: No Reason IV t-PA not ordered: Procedure not Indicated Code Visit Inpatient E AND M: [id number] Disch Hosp 12/26/17 1045 <Electronically signed by Maurizio Lozano DO> Date Maurizio Lozano DO Cosigner Signature (if applicable): Date CC: Maurizio Lozano DO; Twan Coy MD Signed DISCHARGE INSTRUCTION Observed: 12/26/2017 Status: F Source: [place] 10:39 AM [facility] REPOSITORY [facility] Medical Records Department [address] [place] [address] Instructions for Home/Discharge Instructions 12/26/17 1035 MR#: [id number] Acct: [id number] Name: KWAME WEBBER Rep #: [id number] : 1945 72 From: Maurizio Lozano DO PCP: Twan Coy MD Status: ADM IN - Discharge Diagnoses Current Active Problems: Current Active and Chronic Problems (Last Updated 12/25/17 @ 10:32 by Maurizio Lozano DO) TIA (transient ischemic attack) (Acute) Stroke-like symptoms (Acute) You will use the following diet at home:: Calorie/Carbohydrate Controlled (specify 1200, 1400, etc) - 1800 kcal/day, Cardiac Your food should be the consistency of: Regular Your liquids should be the consistency of: Regular/Thin Discharge Activity: Return to Normal Activity Call your doctor if you observe: Fever of 101 or Higher, Shortness of breath, - - confusion. staring off. seizure like activity. Allergies/Adverse Reactions: Allergies adhesive tape Allergy (Verified 12/24/17 21:47) Rash Penicillins Allergy (Verified 12/24/17 21:47) Rash Medications to take at Discharge Clopidogrel Bisulfate [Plavix] 75 mg PO DAILY 09/12/16 Insulin Aspart [Novolog Flexpen] 10 units SUBCUT BREAKFAST 09/12/16 Insulin Aspart [Novolog Flexpen] 20 units SUBCUT DINNER 09/12/16 Insulin Aspart [Novolog Flexpen] 20 units SUBCUT LUNCH 07/22/17 Levothyroxine [Synthroid] 100 mcg PO DAILY 09/12/16 Calcium Carbonate/Vitamin D3 [Calcium 500+D Tablet Chew] 1,500 mg PO BID 09/13/17 Cholecalciferol (Vitamin D3) [Vitamin D3] 1,000 unit PO BID 09/13/17 Fexofenadine HCl 180 mg PO DAILY 09/13/17 Cyanocobalamin (Vitamin B-12) [Vitamin B-12] 500 mcg PO DAILY 09/17/17 isosorbide mononitrate ER 60 mg tablet,extended release 24 hr 60 mg PO DAILY 12/01/17 carbamazepine 200 mg tablet 100 mg PO DAILY tab 12/02/17 ferrous sulfate 325 mg (65 mg iron) tablet 325 mg PO DAILY tab 12/02/17 insulin detemir (U-100) 100 unit/mL (3 mL) subcutaneous pen 40 unit SC QHS ml 12/02/17 ondansetron HCl 4 mg tablet 4 mg PO .COMPLEX PRN tab 12/02/17 Docusate Sodium [Colace] 100 mg PO DAILY #20 capsule 12/15/17 Aspirin E.C. [Ecotrin] 81 mg PO DAILY@0800 tablet 12/26/17 Atorvastatin Calcium [Lipitor] 80 mg PO QHS #30 tablet 12/26/17 The following prescriptions were given: Atorvastatin Calcium [Lipitor] 80 mg PO QHS #30 tablet Primary Care Physician: Twan Coy MD [Primary Care Provider] - Test Results: Test results from this visit will be discussed in further detail at your follow-up appointment, if applicable. Please Follow Up With: Neurosurgery When: January 03 (previously scheduled) Please Follow Up With: Shahbaz Young MD - vascular surgery evalulation When: 1 month Please Follow Up With: Cassandra Yo MD - Neurology for TIA follow up. When: 1-2 months Please Follow Up With: Physical Therapy When: 1-2 weeks Proposed Discharge Date: 12/26/17 12/26/17 1039 <Electronically signed by Maurizio Lozano DO> Date Maurizio Lozano DO CC: Aurora Yo MD; Twan Coy MD BEDSIDE GLUCOSE Collected: 12/26/2017 Status: F Source: JAMES 6:44 AM [facility] REPOSITORY TYPE CODE TESTS RESULT OUT OF REFERENCE UNITS RANGE LAB L501.080 70-110 mg/dL High BEDSIDE GLU 124 Result Comment: MANAGEMENT OF PATIENT CARE PER NURSING PROTOCOL Performed By: #### L501.080 #### [facility] Point of Care [address] [place] [address] BEDSIDE GLUCOSE Collected: 12/25/2017 Status: F Source: JAMES 11:47 PM [facility] REPOSITORY TYPE CODE TESTS RESULT OUT OF REFERENCE UNITS RANGE LAB L501.080 70-110 mg/dL High BEDSIDE GLU 138 Result Comment: MANAGEMENT OF PATIENT CARE PER NURSING PROTOCOL Performed By: #### L501.080 #### [facility] Point of Care [address] [place], [place] [address] BEDSIDE GLUCOSE Collected: 12/25/2017 Status: F Source: JAMES 9:00 PM [facility] REPOSITORY TYPE CODE TESTS RESULT OUT OF RANGE REFERENCE UNITS LAB L501.080 70-110 mg/dL Normal BEDSIDE GLU 86 Result Comment: MANAGEMENT OF PATIENT CARE PER NURSING PROTOCOL Performed By: #### L501.080 #### [facility] Point of Care [address] [place] [address] HISTORY AND PHYSICAL Observed: 12/25/2017 Status: F Source: JAMES EXAM 5:40 PM [facility] Medical Records Department [address] [place] [address] History and Physical 12/24/17 2353 MR#: [id number] Acct: [id number] Name: KWAME WEBBER Rep #: [id number] : 1945 72 From: Manoj Deluna MD PCP: Twan Coy MD Status: ADM IN Location: [place] [id number] ADDENDUM by Manoj Deluna MD on 12/25/17 at 1740 Code Visit Reviewed impression of neck CTA: Normal left common carotid artery (CCA). There is marked calcifications in the left carotid bulb with estimated greater than 70% stenosis. 11/03/18 1740 <Electronically signed by Manoj Deluna MD> Date Manoj Deluna MD cc: Manoj Deluna MD; Twan Coy MD * Signed Problem List (1) Stroke-like symptoms Status: Acute History of Present Illness Date of Admission: 12/24/17 Chief Complaint: Confusion The patient is a 72 year old F with a significant history of hypothyroidism; CKD stage III; pulmonary hypertension; and trigeminal neuralgia who presents with confusion of 1 day. Associated with her symptoms is dysarthria. At the emergency department the patient noted that her confusion had improved disappeared and dysarthria resolved. Patient also complains of 2 weeks of headache. She was at the hospital 2 weeks ago and complained of headache. She reported she was given hydrocodone which she used for about 4 days and ran out. Currently uses Tylenol and topical peppermint ointment mixed with oil for her headache. Reportedly the topical regimen gives her some relief. Her headache is bifrontal. Her headache is persistent; and of severity 5 out of 10. Both head CT and neck CT done at the ED were unremarkable. Past Medical History Past Medical History (Chronic Problems): Chronic Problems (Last Reviewed 12/25/17 @ 00:42 by Manoj Deluna MD) CKD (chronic kidney disease) stage 3, GFR 30-59 ml/min (Chronic) Type 2 diabetes mellitus (Chronic) Essential hypertension (Chronic) Carotid artery stenosis (Chronic) Left Presence of stent in coronary artery (Chronic 1999) PTCA/Stent to the LAD 1999 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) Hyperlipemia (Chronic) Hypothyroidism (Chronic) Medical History: Medical History (Last Reviewed 12/25/17 @ 00:42 by Manoj Deluna MD) Nonrheumatic aortic (valve) stenosis (Acute) I35.0 Pulmonary hypertension (Acute) I27.20 Nonrheumatic tricuspid (valve) insufficiency (Acute) I36.1 Nonrheumatic mitral (valve) insufficiency (Acute) I34.0 Nonrheumatic mitral (valve) prolapse (Acute) I34.1 CKD (chronic kidney disease) stage 3, GFR 30-59 ml/min (Chronic) N18.3 Type 2 diabetes mellitus (Chronic) E11.9 Essential hypertension (Chronic) I10 Carotid artery stenosis (Chronic) I65.29 Left Presence of stent in coronary artery (Chronic) Onset Date: 1999 Z95.5 PTCA/Stent to the LAD 1999 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) I25.10 Hyperlipemia (Chronic) E78.5 Hypothyroidism (Chronic) E03.9 GERD (gastroesophageal reflux disease) K21.9 Trigeminal neuralgia G50.0 Meningioma D32.9 Allergies adhesive tape Allergy (Verified 12/24/17 21:47) Rash Penicillins Allergy (Verified 12/24/17 21:47) Rash Home Medications: Ambulatory Orders Medication Instructions Recorded Clopidogrel Bisulfate [Plavix] 75 mg PO DAILY 09/12/16 Insulin Aspart [Novolog Flexpen 10 units SUBCUT BREAKFAST 09/12/16 Surgical History: Surgical History (Last Reviewed 12/25/17 @ 00:42 by Manoj Deluna MD) Presence of coronary angioplasty implant and graft Onset Date: 1999 Z95.5 PTCA/Stent to the LAD 1999 History of cataract surgery Z98.49 History of hysterectomy Z90.710 History of right-sided carotid endarterectomy Z98.890 S/P wrist surgery Z98.890 ORIF Lives: Spouse/ Significant Other Smoking Status: Never smoker - *Family History Maternal Family History: Family History (Last Reviewed 12/25/17 @ 00:43 by Manoj Deluna MD) Mother Heart disease Paternal Family History: Family History (Last Reviewed 12/25/17 @ 00:43 by Manoj Deluna MD) Mother Heart disease Review of Systems Constitutional: Denies: Chills, Fever, Weight Change HEENT: Reports: Head Aches. Denies: Sinus Congestion, Sinus Drainage Cardiovascular: Denies: Chest Pain, Palpitations Respiratory: Denies: Cough, Shortness of breath at rest, Sputum production Gastrointestinal: Denies: Abdominal Pain, Nausea, Vomiting Genitourinary: Denies: Dysuria Musculoskeletal: Denies: Joint Pain, Joint Tenderness Skin: Denies: Rash, Wounds Neurological: Reports: Confusion. Denies: Focal weakness, Numbness, Tingling Psychiatric: Denies: Anxiety, Depression, Homicidal Ideations, Suicidal Ideations Hematologic/ Lymphatic: Denies: Easy Bruising, Easy Bleeding VTE Information - Inpt Only VTE Present on Admission: No VTE Mechan Device Prophylaxis: None VTE Pharm Prophylaxis ordered?: Yes Patient Problems: Active and Suspected Problems (Last Reviewed 12/25/17 @ 00:42 by Manoj Deluna MD) Stroke-like symptoms (Acute) - Physical Exam General: Alert, Oriented x3, Cooperative HEENT: Atraumatic, PERRLA, EOMI, Normocephalic Neck: Supple, No JVD, Negative Carotid Bruits Lungs: Clear to auscultation, Normal air movement Cardiovascular: Regular rate, No murmurs Abdomen: Bowel Sounds Present, Soft, Non Tender Extremities: No edema, Capillary Refill Less than 3 Seconds Skin: No rashes, No breakdown Musculoskeletal: No Tenderness to Palpation of Joints or Extremities Neurological: Cranial nerves II-XII grossly intact, Neuro grossly intact Psych/Mental Status: Normal Affect, Appropriate Vital Signs Temp Pulse Resp BP Pulse Ox 98.3 F 76 24 H 177/76 H 100 12/24/17 21:18 12/24/17 23:00 12/24/17 23:00 12/24/17 23:00 12/24/17 23:00 Oxygen Flow Rate (L/min) 2 Oxygen Delivery Method Nasal Cannula Weight: 84.8 kg Body Mass Index (BMI) 34.2 Finger Stick Blood Glucose 97 Laboratory Tests Past 24 Hrs WBC RBC Hgb Hct MCV MCH MCHC RDW RDW Differential Plt Count MPV Immature Gran % (Auto) Neut % (Auto) Lymph % (Auto) [place] % (Auto) POC Glucose POC Glucose 97 Assessment/Plan All Active Problems (Last Reviewed 12/25/17 @ 00:42 by Manoj Deluna MD) Stroke-like symptoms (Acute) Nonrheumatic aortic (valve) stenosis (Acute) Pulmonary hypertension (Acute) Nonrheumatic tricuspid (valve) insufficiency (Acute) Nonrheumatic mitral (valve) insufficiency (Acute) Nonrheumatic mitral (valve) prolapse (Acute) The patient is a 72 year old F with a significant history of hypothyroidism; CKD stage III; pulmonary hypertension; and trigeminal neuralgia who presents with confusion; dysarthria and headache. Strokelike symptoms CT head and CT of neck unremarkable. MRI in a.m. Telemetry monitoring. Echocardiogram in a.m. Noted to have elevated blood pressure. Permissive hypertension with labetalol to keep blood pressure 220/120 Hemoglobin A1c and lipids ordered. Speech therapy, occupational therapy and physical therapy to work with patient. Patient on Plavix; continue Patient on pravastatin; continue. With her intractable headache and strokelike symptoms we will seek a neurology consult. Hypertension Blood pressure uncontrolled on admission. Because of strokelike symptoms; permissive hypertension ordered. Labetalol as above. Trend blood pressure Intractable headache. Differential diagnosis include headache secondary to hypertension; temporal arteritis; tension headache or other. Of note patient has has history of trigeminal neuralgia. Hydrocodone APAP as needed for headache. ESR ordered. Neurology consult. Diabetes mellitus On presentation blood glucose was within goal. Her blood glucose was 96. She is on home regimen of NovoLog 10 units with breakfast; 20 units of lunch and 20 units of dinner; and Levemir 40 units nightly. Because her blood glucose was 96 on admission we will cut her Levemir to 20 units nightly; discontinue prandial insulin; and do correction scale insulin. CKD Stage 3 Creatinine on admission is stable at 1.24 DVT prophylaxis subcutaneous heparin. . Code Visit OBSV E AND M: 74131 Initial observation care L3 12/25/17 0643 <Electronically signed by Manoj Deluna MD> Date Manoj Deluna MD Cosigner Signature: Date (if applicable) CC: Manoj Deluna MD; Twan Coy MD Signed BEDSIDE GLUCOSE Collected: 12/25/2017 Status: F Source: JAMES 4:29 PM [facility] REPOSITORY TYPE CODE TESTS RESULT OUT OF REFERENCE UNITS RANGE LAB L501.080 70-110 mg/dL High BEDSIDE GLU 141 Result Comment: MANAGEMENT OF PATIENT CARE PER NURSING PROTOCOL Performed By: #### L501.080 #### [facility] Point of Care [facility] [place] [place] [address] BEDSIDE GLUCOSE Collected: 12/25/2017 Status: F Source: [place] 12:04 PM [facility] REPOSITORY TYPE CODE TESTS RESULT OUT OF REFERENCE UNITS RANGE LAB L501.080 70-110 mg/dL High BEDSIDE GLU 276 Result Comment: MANAGEMENT OF PATIENT CARE PER NURSING PROTOCOL Performed By: #### L501.080 #### [facility] Point of Care [address] [place] [address] ECHOCARDIOGRAM COMPLETE Observed: 12/25/2017 Status: F Source: [place] 11:38 AM [facility] REPOSITORY [facility] Cardiovascular Services [address] [place] [address] Echo Complete 12/25/17 0710 MR#: [id number] Acct: [id number] Name: KWAME WEBBER Rep #: [id number] : 1945 72 From: Manuel Verduzco MD Attending Dr: Maurizio Lozano DO Status: ADM YAIR Ordering Dr: Manoj Deluna MD Date: 12/25/17 Location: PCU Sex: F C Admitted: 12/25/17 Reason For Study: TIA/CVA Procedure This was a 2D Doppler, Color Flow transthoracic echocardiogram. Contrast injection was performed. Exam performed portable in patient room. Left Ventricle Normal size and thickness. Normal LV size. The estimated ejection fraction is 60 %. There is evidence of diastolic dysfunction. Stage 1 diastolic dysfunction. No regional wall motion abnormalities noted. Right Ventricle Normal RV size. Normal systolic function. Atria Normal left atrium. Normal right atrium. Bubble contrast study negative for right to left interatrial shunt. Mitral Valve Normal mitral valve. Mild (1+) eccentric mitral valve insufficiency. Tricuspid Valve Normal tricuspid valve. Mild to moderate (1-2+) tricuspid valve insufficiency. Pulmonary artery systolic pressure is 55 mmHg. Moderate pulmonary hypertension. Aortic Valve Normal aortic valve. Trisinus/trileaflet aortic valve. Pulmonic Valve Normal pulmonic valve. Great Vessels Normal aortic root. The pulmonary artery is normal size. Normal inferior vena cava. Pericardium/Pleural No pericardial effusion. Medication Performed a rapid injection of agitated mix of 9 cc saline and 1cc air to assess for atrial septal defect. MMode/2D Measurements AND Calculations LVIDd: 4.3 cm IVSd: 1.3 cm Ao root diam: 2.4 cm LVIDs: 2.9 cm LVPWd: 1.0 cm LA dimension: 3.4 cm RVDd: 2.5 cm FS: 34.0 % LAV(MOD-bp): 41.1 ml LA A4 area: 17.1 cm2 RA A4 area: 13.8 cm2 LAV(MOD-bp) Indexed: 22.5 ml/m2 LAV(MOD-sp2): 32.8 ml LAV(MOD-sp4): 43.8 ml Time Measurements MV dec time: 0.31 sec Doppler Measurements AND Calculations MV E max glenn: 75.3 cm/sec MV V2 max: 119.9 cm/sec MV P1/2t max glenn: 92.9 cm/sec MV A max glenn: 106.8 cm/sec MV max P.8 mmHg MV P1/2t: 101.6 msec MV E/A: 0.71 MV V2 mean: 59.1 cm/sec MV dec slope: 267.8 cm/sec2 MV mean P.7 mmHg MVA(P1/2t): 2.2 cm2 MV V2 VTI: 30.2 cm Ao V2 max: 154.2 cm/sec LV V1 max: 110.4 cm/sec PA V2 max: 133.0 cm/sec Ao max P.5 mmHg LV V1 max P.9 mmHg TR max glenn: 358.5 cm/sec TR max P.4 mmHg Interpretation Summary Normal size and thickness. Normal LV size. The estimated ejection fraction is 60 %. There is evidence of diastolic dysfunction. Stage 1 diastolic dysfunction. Moderate pulmonary hypertension. Ordering Physician: Manoj Deluna Referring Physician: Twan Coy Performed By: Jorge Sheriff RCS 12/25/17 1137 Date Manuel Verduzco MD CC: Maurizio Lozano DO; Manoj Deluna MD; Twan Coy MD Date Dictated: 12/25/17709 Date Transcribed: 12/25/171136 Engineering Technical Specialist: Signed BEDSIDE GLUCOSE Collected: 12/25/2017 Status: F Source: [place] 7:06 AM [facility] REPOSITORY TYPE CODE TESTS RESULT OUT OF REFERENCE UNITS RANGE LAB L501.080 70-110 mg/dL High BEDSIDE GLU 167 Result Comment: MANAGEMENT OF PATIENT CARE PER NURSING PROTOCOL Performed By: #### L501.080 #### [facility] Point of Care [address] [place], [place] [id number] LIPID PROFILE Collected: 12/25/2017 Status: F Source: [place] 6:00 AM [facility] REPOSITORY TYPE CODE TESTS RESULT OUT OF RANGE REFERENCE UNITS LAB L501.4900 200 mg/dL Normal CHOL 138 Result Comment: <200 mg/dL Desirable 200-240 mg/dL Borderline >240 mg/dL High Risk LAB L501.5000 mg/dL Normal TRIG 163 Result Comment: The drugs N-Acetylcysteine and Metamizole may falsely depress this assay. Serum Triglycerides Reference Interval Normal <150 mg/dL Borderline high 150 - 199 mg/dL High 200 - 499 mg/dL Very High > or = 500 mg/dL LAB L501.6400 mg/dL Normal HDL 48 Result Comment: The drugs N-Acetylcysteine and Metamizole may falsely depress this assay. Reference Range HDL <40 mg/dL Low HDL Cholesterol HDL >or= 60 mg/dL High HDL Cholesterol LAB L501.6500 0-130 mg/dL Normal LDL 57 LAB L501.6600 5-40 mg/dL Normal VLDL 33 Performed By: #### L500.4100 #### [facility] [address] [place], [address] BRAIN WITHOUT Observed: 12/25/2017 Status: F Source: [place] CONTRAST 12:41 AM [facility] REPOSITORY [facility] Imaging Services [address] [place] [address] Brain without Contrast MR#: [id number] Acct: [id number] Name: KWAME WEBBER Rep #: [id number] : 1945 F 72 From: Domenic Padilla PCP: Twan Coy MD Status: ADM YAIR Study: Brain without Contrast Date of Exam: 12/25/17 Exam# [id number] Ordering Dr: Manoj Deluna MD STUDY: MRI BRAIN WITHOUT CONTRAST REASON FOR EXAM: Female, 72 years old. frontal headache x 2 weeks. TECHNIQUE: Standardized multiplanar fat and water weighted pulse sequences were obtained. COMPARISON: July 06, 2017 FINDINGS: There is mild cerebral atrophy with widening of the extra- axial spaces and ventricular dilatation. There are multiple white matter hyperintensities, distributed throughout the deep white matter tracts of the cerebral hemispheres, consistent with moderate chronic white matter ischemic changes. Normal bilateral basal ganglia. Normal thalami. Normal flow voids within the major intracranial circulation suggesting patency by spin echo criteria. Normal sella turcica, pituitary gland, infundibular stalk, optic chiasm and hypothalamus. Normal tectal plate and pineal gland. Again noted is a the right CP angle/trigeminal cave enhancing mass without change since the prior examination, most consistent with meningioma. There is mild mass effect on the adjacent nate. Normal cerebellum. Normal basal cisterns. Normal bilateral temporal bones. Normal bilateral internal auditory canals. MRI/Brain without Contrast IMPRESSION: No acute intracranial abnormality. Stable right CP angle/Meckel's cave likely meningioma. Electronically Signed: Domenic Padilla MD at 14:57 EDT Tel , Service support , CC: Manoj Deluna MD; Twan Coy MD Engineering Technical Specialist: Signed EMERGENCY DEPARTMENT Observed: 12/24/2017 Status: F Source: [place] SUMMARY 11:45 PM [facility] REPOSITORY [facility] Medical Records Department [address] [place] [address] Emergency Department Summary 12/24/17 2148 MR#: [id number] Acct: [id number] Name: KWAME WEBBER Rep #: [id number] : 1945 72 From: Ana Bender MD PCP: Twan Coy MD Status: REG ER - ER Visit Summary Date of Service: 12/24/17 Chief Complaint: Confusion History of Present Illness: The patient is a 72 F presenting with confusion and difficulty speaking. Her states that she had some confusion starting around 9 AM this morning. Around 6 PM this worsened. She had trouble getting words out. She states she has a headache which she has had for the past 4 weeks. She was seen in the ED last week for headache. She had no confusion or difficulty speaking at that time. She was given [place] for home. She states this helped but she has now run out of this medication. She denies weakness or numbness. Denies vision changes. Per EMS patient had difficulty answering basic questions. This has improved on arrival to the ED. Physical Examination: Vitals are stable. Patient is afebrile. Alert no acute distress. HEENT exam is unremarkable. Neck is supple. Lungs are clear and equal bilaterally. Heart is regular rate and rhythm. Abdomen is soft nontender nondistended. Extremities are unremarkable. Skin is warm and dry. No focal neurologic deficit. NIH 1 for LOC questions Remainder of exam is unremarkable. Emergency Department Course and Treatment: EKG is sinus rate 77, unchanged from previous. Chest x-ray shows no acute process. CBC, chemistries unremarkable other than BUN 30, creatinine 1.24. Urinalysis unremarkable. Troponin 0.034. CTA head shows normal [place] of [place] without a demonstrated aneurysm or hemodynamically significant stenosis. CTA neck shows Question 70-80% stenosis of the left carotid bulb. Minimal atherosclerotic changes of the distal right common carotid artery without stenosis. No other evidence of vascular abnormality. On re-evaluation, she is now alert and oriented x3, NIH 0. Headache is improved. Discussed with the hospitalist for admission. Disposition: Admission Impression: Expressive aphasia This note was generated with [employer] dictation software. It may contain incorrect words, spelling, and punctuation that were not noted in review of the chart prior to signing ED Disposition - Plan for ED Patient: Chief Complaint: Neuro S/Sx Referrals: Twan Coy MD [Primary Care Provider] - What to do if you have Problems For any increased pain, shortness of breath, bleeding, nausea or vomiting, chest pain, or any unexpected problems, contact your Primary Care Provider. Call [facility] ([phone]) or report to the closest Emergency Room. Call 911 if necessary. 12/24/17 0123 <Electronically signed by Ana Bender MD> Date Ana Bender MD Cosigner Signature (If Indicated): Date CC: Twan Coy MD URINALYSIS, COMPLETE Collected: 12/24/2017 Status: F Source: [place] 10:21 PM [facility] REPOSITORY Order Comment: Order Date: 12/24/17 Has pt arrived? Y How was Urine Obtained? CATHETER SPECIMEN TYPE CODE TESTS RESULT OUT OF RANGE REFERENCE UNITS LAB L400.3000 Yellow COLOR Normal Yellow LAB L400.3050 Clear Sl Normal CLARITY Cldy LAB L400.3200 Normal mg/dl High 50 GLUCOSE, UR LAB L400.3300 Negative mg/dL Normal BILIRUBIN URINE Negative LAB L400.3400 Negative mg/dl Normal KETONE UR Negative LAB L400.3465 1.002-1.030 Normal SP.GR. DIPSTX 1.015 LAB L400.3550 5.0 - 8.0 pH UR Normal 5.0 LAB L400.3600 Negative mg/dl High PROT 30 DIPSTX LAB L400.3700 Normal mg/dl Normal UROBILI Normal LAB L400.3750 Negative Normal NITRITE UR Negative LAB L400.3780 Negative /ul High 10 OCCULT BLOOD-UR LAB L400.3800 Negative /ul High LEUK 25 ESTERASE LAB L400.4050 0-5 /hpf WBC 0 Normal SEEN LAB L400.4100 0-5 /hpf 0 Normal RBC-UA SEEN LAB L400.4150 5-10 /hpf SQUAM 0 Normal EPI SEEN LAB L400.4300 None Seen /hpf 0 Normal BACTERIA SEEN LAB L400.4350 <or=2+ /hpf 2+ Normal MUCUS, URINE LAB L400.4400 0-5 /lpf Normal HYALINE CAST 5-10 SEEN Performed By: #### L400.0001 #### [facility] [address] [place], [address] CTA HEAD W/WO Observed: 12/24/2017 Status: F Source: [place] CONTRAST 9:44 PM [facility] REPOSITORY [facility] Imaging Services [address] [place] [address] CTA Head W/WO Contrast MR#: [id number] Acct: [id number] Name: KWAME WEBBER Rep #: [id number] : 1945 F 72 From: Juan Ang DO PCP: Twan Coy MD Status: REG ER Study: CTA Head W/WO Contrast Date of Exam: 12/24/17 Exam# [id number] Ordering Dr: Ana Bender MD STUDY: CTA OF THE BRAIN REASON FOR EXAM: Female, 72 years old. Confusion. Headache. Difficulty following commands since 9:00 AM. RADIATION DOSAGE (If Supplied By Facility): CTDIvol = ( 27.83 ) mGy, DLP = ( 1511.84 ) mGycm TECHNIQUE: CT angiography was performed with a multi-detector CT scanner. Data acquisition was obtained from the skull base through the vertex following intravenous administration of 100 ml of Isovue-370. MIP images were reconstructed from the axial data set. Post-processing of the angiographic images was performed, with multiplanar reformation and 3D reconstruction. Individualized dose optimization techniques were used for this CT. COMPARISON: None. FINDINGS: Normal bilateral petrous carotid arteries. There is calcified plaque formation of the right cavernous carotid artery, without a cross-sectional luminal stenosis. There is calcified plaque formation of the left cavernous carotid artery, without a cross-sectional luminal stenosis. Normal right A1 segments of the anterior cerebral artery. Normal left A1 segments of the anterior cerebral artery. Normal intact anterior communicating artery (ACOM). Normal bilateral A2 segments of the anterior cerebral arteries. Normal right M1 and M2 segments of the middle cerebral arteries, with a normal M1 bifurcation. Normal left M1 and M2 segments of the middle cerebral arteries, with a normal M1 bifurcation. There is non-visualization of the right posterior communicating artery (PCOM). There is non-visualization of the left posterior communicating artery (PCOM). There is a small atretic left vertebral artery with a dominant right vertebral artery. Normal basilar artery with a normal basilar bifurcation. The visualized bilateral superior cerebellar (SCA) arteries are normal. Normal bilateral P1, P2 and visualized P3 segments of the posterior cerebral arteries. There is no demonstrated aneurysm of the [place] of [place]. There is no demonstrated abnormality of the visualized brain. CT/CTA Head W/WO Contrast IMPRESSION: Normal [place] without a demonstrated aneurysm or hemodynamically significant stenosis. Electronically Signed: Juan Ang DO at 23:25 EDT Tel [phone], Service support , CC: Ana Bender MD; Twan Coy MD Engineering Technical Specialist: Signed CTA NECK W/WO Observed: 12/24/2017 Status: F Source: [place] CONTRAST 9:44 PM [facility] REPOSITORY [facility] Imaging Services [address] [place] [address] CTA Neck W/WO Contrast MR#: [id number] Acct: [id number] Name: KWAME WEBBER Rep #: [id number] : 1945 F 72 From: Juan Ang PCP: Twan Coy MD Status: REG ER Study: CTA Neck W/WO Contrast Date of Exam: 12/24/17 Exam# [id number] Ordering Dr: Ana Bender MD STUDY: CTA NECK WITH CONTRAST REASON FOR EXAM: Female, 72 years old. Headache. Confusion. RADIATION DOSAGE (If Supplied By Facility): CTDIvol = ( 27.83 ) mGy, DLP = ( 1511.84 ) mGycm TECHNIQUE: CT angiography with multi-detector data acquisition was performed from the aortic arch to the skull base following intravenous administration of 100ML ml of Isovue 370 contrast. MIP images were reconstructed from the axial data set. Post-processing of the angiographic images was performed, with multiplanar reformation and 3D reconstruction. Individualized dose optimization techniques were used for this CT. COMPARISON: None. FINDINGS: AORTIC ARCH: There is atherosclerotic calcific plaque formation of the aortic arch and great vessels arising from the aortic arch, without a hemodynamically significant stenosis. There is a normal origin of the brachiocephalic, left common carotid, and left subclavian arteries. RIGHT CAROTID ARTERIES: There is minimal atherosclerotic changes about the distal right common carotid artery without stenosis. Normal right common carotid bulb. Normal origin of the right internal carotid (ICA) artery without a hemodynamically significant stenosis. Normal visualized cervical portion of the right internal carotid artery. Normal origin of the right external carotid artery (ECA). LEFT CAROTID ARTERIES: Normal left common carotid artery (CCA). There is marked calcifications in the left carotid bulb with estimated greater than 70% stenosis. Normal origin of the left internal carotid (ICA) artery without a hemodynamically significant stenosis. Normal visualized cervical portion of the left internal carotid artery. Normal origin of the left external carotid artery (ECA). VERTEBRAL ARTERIES: Normal bilateral vertebral arteries. There are mild degenerative changes of the cervical spine. CT/CTA Neck W/WO Contrast IMPRESSION: 1. Question 70-80% stenosis of the left carotid bulb. 2. Minimal atherosclerotic changes of the distal right common carotid artery without stenosis. 3. No other evidence of vascular abnormality. Electronically Signed: Juan Ang DO at 23:34 EDT Tel [phone], Service support , CC: Ana Bender MD; Twan Coy MD Engineering Technical Specialist: Signed CBC W/DIFF, AUTOMATED Collected: 12/24/2017 Status: F Source: JAMES 9:42 PM [facility] REPOSITORY TYPE CODE TESTS RESULT OUT OF RANGE REFERENCE UNITS LAB L100.1000 4.4-11.0 K/mm3 Normal WBC 10.4 LAB L100.1200 4.2-5.4 M/mm3 Normal RBC 4.34 LAB L100.1300 12.0-15.0 g/dl Normal HGB 13.2 LAB L100.1400 37-47 % Normal HCT 40.2 LAB L100.1500 81-99 fL Normal MCV 92.6 LAB L100.1600 27.0-32.0 pg Normal MCH 30.4 LAB L100.1700 32-36 g/gl Normal MCHC 32.8 LAB L100.1810 11.6-14.6 % Normal RDW CV 13.2 LAB L100.1820 35.1-43.9 fl High RDW SD 44.0 LAB L100.1900 150-450 K/mm3 Normal PLT 176 LAB L100.2000 6.2-12.0 fl Normal MPV 11.0 LAB L100.2100 47-70 % Normal NEUT% 69.2 LAB L100.2200 19-41 % Normal LY% 20.2 LAB L100.2300 0-10 % Normal MONO% 8.7 LAB L100.2400 0-5 % Normal EO% 1.4 LAB L100.2500 0-1 % Normal BASO% 0.3 LAB L100.2550 0.0-0.9 % Normal IM GRAN % 0.200 Result Comment: IG% - Immature Granulocytes (promyelocytes, myelocytes and metamyelocytes) > 1% indicates that a LEFT SHIFT is Present. LAB L100.2620 2.0-7.7 X10 3/uL Normal Absolute Neut 7.2 LAB L100.2720 0.83-4.51 X10 3/ul Normal Absolute Lymph 2.10 Performed By: #### L100.0100 #### [facility] [address] [place], [place], [id number] PROTHROMBIN TIME W/INR Collected: 12/24/2017 Status: F Source: JAMES 9:42 PM [facility] REPOSITORY TYPE CODE TESTS RESULT OUT OF RANGE REFERENCE UNITS LAB L300.4150 11.7-14.9 SECONDS Normal PROTIME 12.6 LAB L300.4200 Normal INR 0.9 Performed By: #### L300.3900, L300.4310 #### [facility] [address] [facility] [id number] PARTIAL THROMBOPLAST Collected: 12/24/2017 Status: F Source: [place] TIME 9:42 PM [facility] REPOSITORY TYPE CODE TESTS RESULT OUT OF RANGE REFERENCE UNITS LAB L300.4310 24.1-36.2 Seconds Normal PTT 24.7 Performed By: #### L300.3900, L300.4310 #### [facility] [address] [facility] [address] BASIC METABOLIC Collected: 12/24/2017 Status: F Source: [place] PROFILE (BMP) 9:42 PM [facility] REPOSITORY TYPE CODE TESTS RESULT OUT OF RANGE REFERENCE UNITS LAB L501.0100 74-106 mg/dL Normal GLU 96 Result Comment: Please note revised GLUCOSE reference range effective 2017. LAB L501.1000 7-18 mg/dL High BUN 30 LAB L501.1100 0.55-1.02 mg/dL High CREAT,SERUM 1.24 Result Comment: The validity of the calculated GFR AND GFRAA in patients over 70 years has not been determined. Clinical correlation is essential. LAB L501.1110 >60 mL/min Low EST GFR 45 Result Comment: Non- GFR Calc LAB L501.1115 >60 mL/min Low EST GFR - AA 54 Result Comment: GFR Calc LAB L501.1255 ml/min Normal Estimated CRCL 31.48 LAB L501.1300 10-20 RATIO High BUN/CRE 24.2 LAB L501.2200 8.5-10 mg/dL Normal .1 CA 8.9 LAB L501.5300 136-14 mmol/L Normal 5 NA 144 LAB L501.5600 3.5-5. mmol/L Normal 1 K 4.0 LAB L501.5900 98-107 mmol/L Normal CL 107 LAB L501.6100 21.0-3 mmol/L Normal 2.0 CO2 30.0 LAB L501.6200 5-15 Normal GAP 7 Performed By: #### L500.2500, L501.4010 #### [facility] [address] [place], [place], [address] TROPONIN-I Collected: 12/24/2017 Status: F Source: [place] 9:42 PM [facility] REPOSITORY TYPE CODE TESTS RESULT OUT OF RANGE REFERENCE UNITS LAB L501.4010 <0.045 ng/mL Normal 0.034 TROPONIN-I Result Comment: TROPONIN-I EXPECTED VALUES <0.045 Negative 0.045 - 0.590 Consistent with Cardiac Damage > OR = 0.600 Critical Value Not every elevated troponin is indicative of [place]. These values should be used with clinical judgement in examining the patient's clinical picture for diagnosis. To establish a diagnosis of [place] versus myocardial injury, there must be a demonstrated rise and/or fall in the troponin values, in addition to ischemic symptoms, EKG changes, new regional wall motion abnormality, and/or angiographical evidence. PLEASE NOTE: REFERENCE RANGES EDITED 17 Performed By: #### L500.2500, L501.4010 #### [facility] [address] [place], [place], [address] ERYTHROCYTE SED RATE Collected: 12/24/2017 Status: F Source: [place] 9:42 PM [facility] REPOSITORY TYPE CODE TESTS RESULT OUT OF RANGE REFERENCE UNITS LAB L102.0000 0-30 mm/hr Normal SED RATE 14 Performed By: #### L101.9900 #### [facility] [address] [place], [address] HEMOGLOBIN A1C Collected: 12/24/2017 Status: F Source: [place] 9:42 PM [facility] REPOSITORY TYPE CODE TESTS RESULT OUT OF RANGE REFERENCE UNITS LAB L501.9985 4.2-6.3 % High HGB A1C 7.1 Performed By: #### L501.9985 #### [facility] [address] [place], [address] CHEST 1 VIEW Observed: 12/24/2017 Status: F Source: [place] 9:37 PM [facility] REPOSITORY [facility] Imaging Services [address] [place] [address] Chest 1 View MR#: [id number] Acct: [id number] Name: KWAME WEBBER Rep #: [id number] : 1945 F 72 From: Sandra Irving MD PCP: Twan Coy MD Status: REG ER Study: Chest 1 View Date of Exam: 12/24/17 Exam# [id number] Ordering Dr: Ana Bender MD STUDY: X-RAY CHEST REASON FOR EXAM: Female, 72 years old. Headache, confusion, expressive aphasia. TECHNIQUE: 1 view COMPARISON: None. FINDINGS: Lung fuentes are expanded without major consolidation, atelectasis or a substantial pleural effusion. [place] lobe of the right upper lobe, normal variation. Normal size heart. Normal mediastinum and joshua. Normal visualized pulmonary arteries. There is atherosclerotic calcification of the aortic arch with tortuosity. There are diffuse degenerative changes of the visualized thoracic spine with dextroscoliosis. Normal visualized ribs, clavicles, and shoulders. There is no demonstrated abnormality of the visualized soft tissue structures of the upper abdomen. RAD/Chest 1 View IMPRESSION: No acute cardiopulmonary findings. Negative for major consolidation, focal atelectasis, cardiomegaly or pleural effusion. Electronically Signed: Sandra Irving MD at 22:26 EDT , Service support , CC: Ana Bender MD; Twan Coy MD Engineering Technical Specialist: Signed BEDSIDE GLUCOSE Collected: 12/24/2017 Status: F Source: [place] 9:23 PM [facility] REPOSITORY TYPE CODE TESTS RESULT OUT OF RANGE REFERENCE UNITS LAB L501.080 70-110 mg/dL Normal BEDSIDE GLU 97 Result Comment: MANAGEMENT OF PATIENT CARE PER NURSING PROTOCOL Performed By: #### L501.080 #### [facility] [place] [address] CBC W/DIFF, AUTOMATED Collected: 12/23/2017 Status: F Source: [place] 5:44 PM [facility] REPOSITORY TYPE CODE TESTS RESULT OUT OF RANGE REFERENCE UNITS LAB L100.1000 4.4-11.0 K/mm3 Normal WBC 8.3 LAB L100.1200 4.2-5.4 M/mm3 Normal RBC 4.44 LAB L100.1300 12.0-15.0 g/dl Normal HGB 13.8 LAB L100.1400 37-47 % Normal HCT 41.4 LAB L100.1500 81-99 fL Normal MCV 93.2 LAB L100.1600 27.0-32.0 pg Normal MCH 31.1 LAB L100.1700 32-36 g/gl Normal MCHC 33.3 LAB L100.1810 11.6-14.6 % Normal RDW CV 13.1 LAB L100.1820 35.1-43.9 fl High RDW SD 44.4 LAB L100.1900 150-450 K/mm3 Normal PLT 173 LAB L100.2000 6.2-12.0 fl Normal MPV 10.9 LAB L100.2100 47-70 % High NEUT% 72.4 LAB L100.2200 19-41 % Normal LY% 19.5 LAB L100.2300 0-10 % Normal MONO% 6.2 LAB L100.2400 0-5 % Normal EO% 1.6 LAB L100.2500 0-1 % Normal BASO% 0.2 LAB L100.2550 0.0-0.9 % Normal IM GRAN % 0.100 Result Comment: IG% - Immature Granulocytes (promyelocytes, myelocytes and metamyelocytes) > 1% indicates that a LEFT SHIFT is Present. LAB L100.2620 2.0-7.7 X10 3/uL Normal Absolute Neut 6.0 LAB L100.2720 0.83-4.51 X10 3/ul Normal Absolute Lymph 1.61 Performed By: #### L100.0100 #### [facility] [address] [place], [place], [address] RENAL PROFILE Collected: 12/23/2017 Status: F Source: [place] 5:44 PM [facility] REPOSITORY TYPE CODE TESTS RESULT OUT OF RANGE REFERENCE UNITS LAB L501.0100 74-106 mg/dL High GLU 231 Result Comment: Glucose result greater than or equal to 200 mg/dL suggests DIABETES MELLITUS per A.D.A. criteria. Please note revised GLUCOSE reference range effective 2017. LAB L501.1000 7-18 mg/dL High BUN 25 LAB L501.1100 0.55-1.02 mg/dL High CREAT,SERUM 1.18 Result Comment: The validity of the calculated GFR AND GFRAA in patients over 70 years has not been determined. Clinical correlation is essential. LAB L501.1110 >60 mL/min Low EST GFR 48 Result Comment: Non- GFR Calc LAB L501.1115 >60 mL/min Low EST GFR - AA 58 Result Comment: GFR Calc LAB L501.1300 10-20 RATIO High BUN/CRE 21.2 LAB L501.1800 3.2-5.0 g/dL Normal ALB 3.4 LAB L501.2200 8.5-10.1 mg/dL CA Normal 9.1 LAB L501.2300 2.5-4.9 mg/dL Normal PHOS 2.7 LAB L501.5300 136-145 mmol/L NA Normal 143 LAB L501.5600 3.5-5.1 mmol/L K Normal 3.7 LAB L501.5900 98-107 mmol/L CL Normal 106 LAB L501.6100 21.0-32.0 mmol/L Normal CO2 31.0 Performed By: #### L500.3600 #### [facility] [address] [place], [address] MICROALB:CREAT Collected: 12/23/2017 Status: F Source: [place] RATIO,RANDOM UR 5:44 PM [facility] REPOSITORY TYPE CODE TESTS RESULT OUT OF RANGE REFERENCE UNITS LAB L501.1200 NO RANGE EST. mg/dL Normal UR CREAT 138.00 LAB L502.0500 NO RANGE EST. mg/L Normal 68.4 MICROALBUMIN ,UR LAB L502.0600 <30 mg/g CRE mg/g CRE High 49.6 MALB:CREAT Performed By: #### L502.0250 #### [facility] [address] [place], [address] PTHIN Collected: 12/23/2017 Status: F Source: [place] 5:44 PM [facility] REPOSITORY TYPE CODE TESTS RESULT OUT OF RANGE REFERENCE UNITS LAB L509.1000 18.4-80.1 pg/mL Normal PTHIN 25.3 Performed By: #### L509.1000 #### [facility] [address] [place], [place], [address] VITAMIN D,25 HYDROXY Collected: 12/23/2017 Status: F Source: [place] 5:44 PM [facility] REPOSITORY TYPE CODE TESTS RESULT OUT OF RANGE REFERENCE UNITS LAB L506.1000 29.95-100.01 ng/mL Normal Vitamin D 46.6 25-OH Result Comment: Vitamin D 25(OH) Status Range Deficiency <20 ng/mL (50nmol/L) Insuffciency 20 - 30 ng/mL (50 - 75 nmol/L) Sufficiency 30 - 100 ng/mL (75 - 250 nmol/L) Toxicity >100 ng/mL (>250 nmol/L) Performed By: #### L506.1000 #### [facility] [address] [place], [address] RE-EVALUTION OT Observed: 12/20/2017 Status: F Source: [place] 6:41 PM [facility] REPOSITORY [facility] [address] [place], [place] [address] Fax REEVALUATION / MEDICARE RECERTIFICATION OCCUPATIONAL THERAPY MR#: [id number] Acct: [id number] Name: KWAME WEBBER Rep #: [id number] : 1945 72 From: Kala Negron OTR/L, CHT Referring Dr.: Madhav Saba MD Status: REG RCR Insurance: MEDICARE PART A B Eval Date: FRANKY Saba MD, It has been my pleasure to treat KWAME WEBBER over the last 10 visits for left distal radius fx. Please see the progress note below for an update on the occupational therapy plan of care! Subjective: pt. arrives and states that she is not feeling well today and that she does not want to participate in therapy. 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 lateral grasp L 9# and R is 12 #. Tripod grasp in L is 9# and R is 13#. R wrist ROM: 65/45 and L wrist ROM: 53/53. pt. has made gains, she does cancel and re-schedule visits often, she does indicate motivation to cont. receiving OT services. Pt would benefit from cont. skilled OT services to cont. to increase pts functional strength and use of left UE for BADLS and IADLS. Plan Frequency: 2-3x /Week Duration: 4 Weeks Plan: cont POC, provide HEP to complete at home Goals - Goals Goal:: Pt will demo a increase in left computer hardware technician strength to 25# to increase pts ind. with BADLs and IADLS. Pt will demo a increase in left pinch strength by 4# to increase pts use of bilateral hands for meal prep and bathing tasks. Goal:: pt will demo left wrist ROM equal to right by d/c to increase pts ind. with IADLS. pt will demo the ability to form a composite fist to manipulate coins/cards by d/c Goal:: pt will report pain no greater than 1/10 with use of left UE for BADLs and IADLS by D/C Anticipated Interventions Anticipated Interventions: A/AAROM/PROM, Strengthening, Scar Care, Triggerpoint Release, Modalities Please do not hesitate to contact me at [phone] by phone or if you have questions or concerns regarding this new plan of care! Sincerely, ALONA Rausch/GRETTA Lepe <Electronically signed by aKla SAGE/GRETTA Lepe> 12/20/17 1841 CC: Madhav Saba MD; Twan Coy MD MK Signed For Medicare only, by signing this I certify the plan of care. Physicians Signature Date EMERGENCY DEPARTMENT Observed: 12/15/2017 Status: F Source: [place] SUMMARY 6:15 PM [facility] REPOSITORY [facility] Medical Records Department [address] [place] [address] Emergency Department Summary 12/15/17 1106 MR#: [id number] Acct: [id number] Name: KWAME WEBBER Rep #: [id number] : 1945 72 From: Bolivar Chaudhari MD PCP: Twan Coy MD Status: DEP ER - ER Visit Summary Date of Service: 12/15/17 Chief Complaint: Headache History of Present Illness: The patient is a [address] Twan Coy. She reports that she has a frontal headache that began approximate 5 days ago and is gradually gotten worse. Is a sharp pain that is 9 and 10 at worst and 5-10 currently. Is worsened by nothing. She is taken Tylenol, Sudafed, and ibuprofen without relief. Patient denies any photophobia. No nasal congestion. No recent trauma. No photophobia. No change in her vision. No fever or chills. No numbness or weakness. No nausea or vomiting. Physical Examination: Vitals: Stable. Afebrile. General: Well-nourished and well-developed. Head: Normocephalic atraumatic. Neck: Supple, no lymphadenopathy. No JVD. Nontender. Cardiovascular: Regular rate and rhythm. No murmurs. Respiratory: No respiratory distress. Clear to auscultation bilaterally. Abdominal: Soft, nontender, nondistended, normal bowel sounds. No guarding, rebound, or peritoneal signs. Back: Nontender. Extremities: Nontender, no edema. Skin: Normal color, no rash. Neurologic: Alert and oriented 3. Cranial nerves II through XII are intact. Normal strength and sensation. Psych: Normal affect. Test Results: CT brain shows no acute disease. Emergency Department Course and Treatment: Patient refused pain medications and is resting comfortably. Treatment Plan: Patient will be discharged with 10 [place] and Colace. Instructed to follow-up Dr. Coy in 2 days as previously scheduled. Return to the emergency department for any worsening symptoms. Disposition: To home in improved and stable condition. Impression: 1. Cephalgia. This note was generated with [employer] dictation software. It may contain incorrect words, spelling, and punctuation that were not noted in review of the chart prior to signing ED Disposition - Plan for ED Patient: Chief Complaint: Headache Instructions: ED Cephalgia Unspecified Prescriptions: Hydrocodone Bitart/Apap 5-325 [[place] 5MG-325MG] 1 tablet PO Q4H PRN PRN 2 Days #10 tablet PRN Reason: Pain Docusate Sodium [Colace] 100 mg PO DAILY #20 capsule Referrals: Twan Coy MD [Primary Care Provider] - Keep Thomas appointment What to do if you have Problems For any increased pain, shortness of breath, bleeding, nausea or vomiting, chest pain, or any unexpected problems, contact your Primary Care Provider. Call [facility] ([phone]) or report to the closest Emergency Room. Call 911 if necessary. 12/15/17 0955 <Electronically signed by Bolivar Chaudhari MD> Date Bolivar Chaudhari MD Cosigner Signature (If Indicated): Date CC: Twan Coy MD BRAIN/HEAD WITHOUT Observed: 12/15/2017 Status: F Source: [place] CONTRAST 10:13 AM [facility] REPOSITORY [facility] Imaging Services [address] [place] [address] Brain/Head without Contrast MR#: [id number] Acct: [id number] Name: KWAME WEBBER Rep #: [id number] : 1945 F 72 From: Amandeep Dawkins MD PCP: Twan Coy MD Status: REG ER Study: Brain/Head without Contrast Date of Exam: 12/15/17 Exam# [id number] Ordering Dr: Bolivar Chaudhari MD STUDY: CT BRAIN WITHOUT CONTRAST REASON FOR EXAM: Female, 72 years old. Five-day history of frontal headaches. RADIATION DOSAGE (If Supplied By Facility): CTDIvol = ( 44.99 ) mGy, DLP = ( 779.24 ) mGycm TECHNIQUE: Transaxial CT imaging of the brain was performed without administration of intravenous contrast material. Individualized dose optimization techniques were used for this CT. COMPARISON: Comparison is made with prior study dated July 25, 2017. FINDINGS: Normal soft tissue structures. There is hyperostosis frontalis internus. There is mild cerebral atrophy with widening of the extra- axial spaces and ventricular dilatation. There are areas of decreased attenuation within the white matter tracts of the supratentorial brain, consistent with microvascular disease changes. There are small punctate calcifications of the basal ganglia which are seen in the aging brain as a normal variant. Normal brainstem. Normal cerebellum. There is no intracranial hemorrhage. There are no findings of an acute ischemic infarction. Normal visualized paranasal sinuses. CT/Brain/Head without Contrast IMPRESSION: Chronic involutional changes of the brain. Electronically Signed: Amandeep Dawkins MD at 10:46 EDT Tel [phone], Service support , CC: Bolivar Chaudhari MD; Twan Coy MD Engineering Technical Specialist: Signed RE-EVALUATION - PT (1) Observed: 12/07/2017 Status: F Source: [place] 4:47 PM [facility] REPOSITORY [facility] [address] [place] [address] Fax REEVALUATION / MEDICARE RECERTIFICATION PHYSICAL THERAPY MR#: [id number] Acct: [id number] Name: KWAME WEBBER Rep #: [id number] : 1945 72 From: Susan You DPT Referring Dr.: Madhav Saba MD Status: REG RCR Insurance: MEDICARE PART A B AARP Madhav Saba MD, It has been my pleasure to treat KWAME WEBBER over the last 14 visits for Balance. Please see the progress note below for an update on the physical therapy plan of care! Subjective: Overall feel like doing pretty good, feels like not doing as much therapy at home. Not doing much exercise at home as getting back into things. Saw orthopedist a couple weeks ago and discussed anti-nausea medication. Medication has been helping for the most part, except for last Wednesday when vomitted at home. Saw physician for nausea. Pt. not allowing her to drive. Pt. wanting to play euchre again but restricting activity due to fear of transitioning from table. helping pt. dress and do tasks around the house although pt. thinks she able to do more. Sleeps okay at night, not woken up by pain. No current pain. Jaw pain 6/10 worst this past week. Using 4 wheel walker in public or transport chair. Use walker at home for most part; trying to walk more without it at home. Has been getting help with stairs in garage; been doing alone lately. No recent falls. Taking BP everyday. Not taking BP medication anymore because physician thinks may be falling due to low BP. Objective/Function: Gait: ambulates with 4 wheel walker normal stephanie, good control. Posture: slightly flexed trunk when seated. ROM: LE WFL. Able to toe and heel raise with bilat. UE support. Balance: 10 seconds bilat 1 UE. Strength: hip 4/5, knee ext. 5/5, knee flex. 4/5, ankle 4+/5 Plan Plan: Cont. PT focusing on LE strength and balance, walking with LRD. Goals Goal 1:: Patient will be I with HEP and progression Goal Time Frame: 4-6 Weeks Goal Progress: Progressing Goal 2:: Patient will ambulate >300 feet with a normalized pattern and LRD Goal Time Frame: 4-6 Weeks Goal Progress: Progressing Goal 3:: Patient will improve standing balance to fair minus Goal Time Frame: 4-6 Weeks Goal Progress: Progressing Goal 4:: Patient will report no falls for 2 weeks Goal Time Frame: 4-6 Weeks Goal Progress: Goal Met Anticipated Interventions Patient/Client Instruction: Educate patient on: Benefits of Fitness Program For the Purpose of:: To increase tolerance to activity/condition/position Therapeutic Exercise to Include: Strength training, Endurance training, Balance training, Agility training, Body mechanics, Postural training, Flexibilty training, Gait and locomotor training, Dynamic Lumbar Stabilization, Scapular Strength/Stabilization For the Purpose of:: To improve muscle performance and motor function Functional Training to Include: ADL Training, Gait training For the Purpose of:: To improve ability to perform ADL's Please do not hesitate to contact me at [phone] by phone or if you have questions or concerns regarding this new plan of care! Sincerely, Susan You <Electronically signed by Susan You DPT> 12/07/17 1647 CC: Madhav Saba MD; Twan Coy MD ELR Signed For Medicare only, by signing this I certify the plan of care. Physicians Signature Date CARDIOLOGY VISIT Observed: 12/02/2017 Status: F Source: [place] REPORT 7:01 PM [facility] REPOSITORY [facility] [address] [place] [address] OFFICE VISIT Date of Service: 12/02/17 MR#: [id number] Acct: [id number] Name: KWAME WEBBER Rep #: [id number] : 1945 Provider: Scott De La Rosa MD Age/Sex: 72/F Location: [facility] Status: Signed HPI HPI Details: KWAME WEBBER, is a 72 F who presents to the office today for outpatient cardiovascular consultation and establishment of outpatient cardiovascular care for history of underlying CAD, PCI, valvular heart disease, superimposed upon peripheral vascular disease, hyperlipidemia, hypertension, and diabetes mellitus. She has previously been cared for by cardiovascular services in [place], [place]. It appears she has the aforementioned history having undergone evaluation care for coronary artery disease leading to cardiac catheterization and LAD PCI in 1999. She had a transthoracic echocardiogram, a stress nuclear imaging study, and a carotid artery duplex study performed in January 2017. Her transthoracic echocardiogram noted her left ventricle to be normal with an LVEF of 60%, probable mild mitral valve prolapse with mild to moderate MR, moderate TR, mild aortic valve stenosis, and an elevated RV systolic pressure 58 mmHg. Her stress nuclear imaging study was thought to be negative based upon ECG criteria and myocardial perfusion criteria with normal LV systolic function. Her carotid artery duplex study suggested mild disease on the right and moderate disease on the left. She denies any symptoms at this time of angina pectoris and she has had no evidence of acute CHF or pulmonary edema. There has been no near syncope or syncope. She states she continues to be followed as an outpatient for her multiple medical issues and conditions. She had an ECG in the office today. She had what appeared to be sinus rhythm with PACs with left axis deviation and voltage criteria for LVH with nonspecific ST segment abnormality Intake Vital Signs12/02/17 Height 5 ft 12/02/17 Weight: 181 lb 12/02/17 Body Mass Index (BMI) 35.3 12/02/17 Blood Pressure 158/92 H Intake Visit Reasons: PCP ref'd, former [facility] Allergies adhesive tape Allergy (Verified 12/02/17 15:58) Rash Penicillins Allergy (Verified 12/02/17 15:58) Rash Medications Clopidogrel Bisulfate [Plavix] 75 mg PO DAILY 09/12/16 [History Confirmed 12/02/17] Insulin Aspart [Novolog Flexpen (BKC)] 10 units SUBCUT BREAKFAST 09/12/16 [History Confirmed 12/02/17] Insulin Aspart [Novolog Flexpen (BKC)] 20 units SUBCUT DINNER 09/12/16 [History Confirmed 12/02/17] Insulin Aspart [Novolog Flexpen (BKC)] 20 units SUBCUT LUNCH 09/12/16 [History Confirmed 12/02/17] Levothyroxine [Synthroid] 100 mcg PO DAILY 09/12/16 [History Confirmed 12/02/17] Pravastatin [Pravachol] 80 mg PO QHS 09/12/16 [History Confirmed 12/02/17] Calcium Carbonate/Vitamin D3 [Calcium 500+D Tablet Chew] 1,500 mg PO BID 09/13/17 [History Confirmed 12/02/17] Cholecalciferol (Vitamin D3) [Vitamin D3] 1,000 unit PO BID 09/13/17 [History Confirmed 12/02/17] Fexofenadine HCl 180 mg PO DAILY 09/13/17 [History Confirmed 12/02/17] Cyanocobalamin (Vitamin B-12) [Vitamin B-12] 500 mcg PO DAILY 09/17/17 [History Confirmed 12/02/17] isosorbide mononitrate ER 60 mg tablet,extended release 24 hr 60 mg PO DAILY 12/01/17 [History Confirmed 12/02/17] carbamazepine 200 mg tablet 100 mg PO DAILY tab 12/02/17 [History Confirmed 12/02/17] ferrous sulfate 325 mg (65 mg iron) tablet 325 mg PO DAILY tab 12/02/17 [History Confirmed 12/02/17] insulin detemir (U-100) 100 unit/mL (3 mL) subcutaneous pen 40 unit SC QHS ml 12/02/17 [History Confirmed 12/02/17] ondansetron HCl 4 mg tablet 4 mg PO .COMPLEX PRN tab 12/02/17 [History Confirmed 12/02/17] [facility] Medical History Nonrheumatic aortic (valve) stenosis (Acute) Pulmonary hypertension (Acute) Nonrheumatic tricuspid (valve) insufficiency (Acute) Nonrheumatic mitral (valve) insufficiency (Acute) Nonrheumatic mitral (valve) prolapse (Acute) CKD (chronic kidney disease) stage 3, GFR 30-59 ml/min (Chronic) Type 2 diabetes mellitus (Chronic) Essential hypertension (Chronic) Carotid artery stenosis (Chronic) Presence of stent in coronary artery (Chronic 1999) 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) Hyperlipemia (Chronic) Hypothyroidism (Chronic) GERD (gastroesophageal reflux disease) (Acute) Trigeminal neuralgia (Acute) Meningioma (Chronic) Surgical History Presence of coronary angioplasty implant and graft (Chronic 1999) History of cataract surgery (Resolved) History of hysterectomy (Resolved) History of right-sided carotid endarterectomy (Resolved) S/P wrist surgery (Resolved) Family History Mother Heart disease Social History Smoking Status: Former smoker alcohol intake: never details: occasional ROS Const Const: Negative for fatigue, weakness, weight gain, weight loss, frequent falls or excessive sweating Eyes Eyes: Negative for change in vision, blurry vision or transient loss of vision ENT ENT: Positive for balance problems (unsteadiness, had sessions of PT @ [facility]); negative for dizziness Cardio Chest Pain: No Palpitations: No Edema: None Muscle aches with walking: None Resp Respiratory: Negative for SOB with activity or SOB at rest GI GI: Negative vomiting or vomiting blood/hematemesis : Negative for hematuria Musc Musc: Positive for balance problems (unsteadiness, had sessions of PT @ [facility]); negative for muscle aches/ myalgia, muscle weakness or joint pain Skin Skin: Negative non-healing lesions or rash Neuro Neuro: Negative for weakness, blurry vision, dizziness, lightheadedness, frequent falls or orthostatic symptoms Rashi Hematologic/Lymphatic: Negative for easy bleeding Endo Endo: Negative for fatigue or excessive sweating Psych Psych: Negative for anxiety or depression Allergy Allergy/Immunology: Negative for hives, Negative for rash Cardiology Exam Const Appearance: cooperative, healthy appearing, comfortable, no acute distress, well developed, well groomed and other (examined in the wheelchair) Nutritional Appearance: overweight Orientation: alert, awake and oriented x3 Head Head: normal to inspection, normocephalic and atraumatic Ears: hearing grossly normal bilaterally Nose: external nose normal Face and Sinus: face symmetric Mouth: oral mucosae normal Teeth and gingiva: fair dentition Eyes Eyelids: eyelids normal Conjunctivae: conjunctivae normal Pupils: PERRL EOM: EOM intact bilaterally Neck Neck: normal visual inspection and full ROM Carotids: normal carotid upstroke Chest Chest inspection: normal inspection of the chest, symmetric chest movement and normal respiratory effort Auscultation: Bilateral: Clear to Auscultation Cardio Palpation: normal PMI Rate: regular rate Rhythm: regular rhythm Heart sounds: S1 normal and S2 normal Murmur: Grade 1/6, mid systolic, LLSB, LVOT and sternal notch GI GI: normal to inspection, bowel sounds present and soft Neuro General: alert, awake and oriented x3 Skin Skin: no rashes or lesions noted Extremities Pulses: Normal: Right Radial Pulse, Left Radial Pulse Lower Extremity Edema: None: Bilateral Psych Psychological: normal affect Assessment AND Plan 1. 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 She does need to continue risk factor modification and medical management Orders Orders: 2. Presence of stent in coronary artery Z95.5 PTCA/Stent to the LAD 1999 Plan She has a history of previous LAD PCI in 1999. She is without acute symptoms. Her recent noninvasive studies are as noted above. She will continue medical management. Orders Orders: 3. Nonrheumatic aortic (valve) stenosis I35.0 Plan He has a history of valvular heart disease as described above. She has been reassessed by echocardiogram in January 2017. She will continue to be followed by history, exam, and echocardiogram in the future. 4. Nonrheumatic mitral valve insufficiency I34.0 Plan She has a history of MR as well. Again she will continue to be followed by history, exam, and echocardiogram. 5. Non-rheumatic tricuspid valve insufficiency I36.1 Plan She has a history of TR as previously described. This will be followed noninvasively. 6. Hyperlipidemia, unspecified hyperlipidemia type E78.5 Plan She is on lipid-lowering therapy. This will be continued. A copy of her most recent lipid labs would be appreciated for continuity of care. 7. Essential hypertension I10 Plan Her blood pressure is somewhat elevated this day. She states she does take her blood pressures at home. She was asked to continue to monitor her blood pressure. She will be taking them to her primary care physician visit. If her blood pressures are elevated consideration will have to be given as to further adjustment of her antihypertensive therapy. Orders Orders: 8. Bilateral carotid artery stenosis I65.23 Left Plan She does have a history of carotid artery disease status post carotid artery [id number] approximately 2000. She will continue her follow-up with her other physicians by her noninvasive study 9. Pulmonary HTN I27.20 Plan She does have a history of pulmonary hypertension as described above based upon her noninvasive studies. She appears without acute symptoms. Luminary pressures can be followed by noninvasive studies in the future as needed. Plan Detail Additional Comments The above was discussed with the patient and her spouse. They are agreeable to this approach. Thank you for allowing me to participate in the care of your patient. Please don't hesitate to call if any issues arise. This note was generated using a voice recognition system and there may be incorrect words, spelling or punctuation that were not noted when reviewing the office note prior to saving. 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 I25.10 Presence of stent in coronary artery Z95.5 Nonrheumatic aortic (valve) stenosis I35.0 Nonrheumatic mitral valve insufficiency I34.0 Non-rheumatic tricuspid valve insufficiency I36.1 Hyperlipidemia, unspecified hyperlipidemia type E78.5 Hyperlipidemia type: unspecified Essential hypertension I10 Bilateral carotid artery stenosis I65.23 Laterality: bilateral Pulmonary HTN I27.20 Coding Level of Care Code Off vis,est,level 3 Diagnoses 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 I25.10 Presence of stent in coronary artery Z95.5 Nonrheumatic aortic (valve) stenosis I35.0 Nonrheumatic mitral valve insufficiency I34.0 Non-rheumatic tricuspid valve insufficiency I36.1 Hyperlipidemia, unspecified hyperlipidemia type E78.5 Hyperlipidemia type: unspecified Essential hypertension I10 Bilateral carotid artery stenosis I65.23 Laterality: bilateral Pulmonary HTN I27.20 12/02/17 1901 <Electronically signed by Scott De La Rosa MD> Date Scott De La Rosa MD Cosigner Signature: Date (if applicable) CC: Twan Coy MD 12 LEAD EKG PERFORMED Observed: 12/02/2017 Status: F Source: [place] BY [facility] 3:54 PM [facility] REPOSITORY [facility] [address] [place] [address] 12 Lead EKG performed by [facility] 12/02/171552 MR#: [id number] Acct: [id number] Name: KWAME WEBBER Rep #: [id number] : 1945 72 From: Scott De La Rosa MD Attending Dr: Scott De La Rosa MD Status: DEP AMB Ordering Dr: Scott De La Rosa MD Date: 12/02/17 Location: [facility] Sex: F C Admitted: BMS/12 Lead EKG performed by [facility] ECG Report Interpretation Sinus rhythm with PSVCsLeft axis deviationPossible left anterior fascicular block. Voltage criteria for LVH (R(aVL) Nonspecific ST depression + Nonspecific T-abnormality Poor R wave progressionABNORMAL Electronically signed on 12/02/2017 at 19:03 by Scott De La Rosa [employer] Version 8610 12/02/17 1905 Date Scott eD La Rosa MD CC: Twan Coy MD Date Dictated: 12/02/171552 Date Transcribed: 12/02/171552 Engineering Technical Specialist: PM Signed OT GENERAL EVALUATION Observed: 11/08/2017 Status: F Source: [place] 8:06 AM [facility] REPOSITORY [facility] Occupational Therapy [address] [place] [address] Fax REHABILITATION SERVICES INITIAL EVALUATION MR#: [id number] Acct: [id number] Name: KWAME WEBBER Rep #: [id number] : 1945 72 From: Kala Negron OTR/L, CHT Referring Dr.: Madhav Saba MD Status: REG RCR Insurance: MEDICARE PART A B Eval Date: [facility] Patient's Visit Information KWAME WEBBER is a 72 year old F, referred to Occupational Therapy by Madhav Saba MD, with a diagnosis of left distal radius fx. Date of Evaluation: 11/05/17 Occupational Therapist: Kala Negron, ROOSEVELTR/Robreth, CHT - Subjective Subjective: September 13, 2017 pt feel getting into bed- her took her to the ER and on September 20, 2017. pt was casted until Oct.29. pt did get a wrist brace to wear when she is out but not in the home. At this time has been helping her with all her BADLs and IADLS. - Pain left wrist 2 Pain Intensity Range: 1, 2 - ROM Wrist: right 60/40 left 45/30 - Strength Marketing Content Coordinator: right 25# left 5# Lateral Pinch: right 4# left 2# Tripod Pinch: right 7# left 1# Strength Comments: pt demo with weak bilateral computer hardware technician and pinch strength - Sensation Sensation Comments: denies - Hand/Wrist Evaluation Total Score of Pain AND Functional Sections: 56 - Goals Goal:: Pt will demo a increase in left computer hardware technician strength to 25# to increase pts ind. with BADLs and IADLS. Pt will demo a increase in left pinch strength by 4# to increase pts use of bilateral hands for meal prep and bathing tasks. Goal:: pt will demo left wrist ROM equal to right by d/c to increase pts ind. with IADLS. pt will demo the ability to form a composite fist to manipulate coins/cards by d/c Goal:: pt will report pain no greater than 1/10 with use of left UE for BADLs and IADLS by D/C - Rehabilitation General Assessment: PT demo with decrease in left wrist ROM and strength- this is limiting pts ind. with BADLs and IADLS. pt would benefit skilled OT services 2-3x week for 4-6 weeks to gain functional use of left UE for BADls and IADLS Rehabilitation Potential: Good - Anticipated Interventions Anticipated Interventions: A/AAROM/PROM, Strengthening, Scar Care, Triggerpoint Release, Modalities - Visit Plan Frequency: 2-3x /Week Duration: 6 Weeks TEXT: Thank you for the opportunity to evaluate your patient. For Medicare and Medicare HMO plans, please review the plan of care and approve it. It will need to be FAXED BACK to us at [phone] for Medicare purposes. Please let me know if there are questions or concerns regarding this plan of care. Physician Signature: Date: <Electronically signed by Kala SAGE/Roberth, CHT> 11/08/17 0806 CC: Madhav Saba MD; Twan Coy MD MK Signed For Medicare only, by signing this I certify the plan of care. Physicians Signature Date RE-EVALUATION - PT (1) Observed: 11/05/2017 Status: F Source: [place] 11:08 AM [facility] REPOSITORY [facility] Physical [facility] [address] [place], [place] [address] Fax REEVALUATION / MEDICARE RECERTIFICATION PHYSICAL THERAPY MR#: [id number] Acct: [id number] Name: KWAME WEBBER Rep #: [id number] : 1945 72 From: Susan You DPT Referring Dr.: Madhav Saba MD Status: REG RCR Insurance: MEDICARE PART A B AARP Madhav Saba MD, It has been my pleasure to treat KWAME WEBBER over the last 9 visits for Balance. Please see the progress note below for an update on the physical therapy plan of care! Subjective: Patient reports that she broke her wrist and has basically been sitting since then. Anytime she stands her is by her side and goes with her everywhere. Her balance is really bad again. No pain just frustrated by lack of mobility and balance Objective/Function: Posture: FH, RS, increased kyphosis. Gait: antalgic- wide ALEISHA- decreased stephanie and poor heel/toe pattern. 2 episodes of LOB with righting by the PT. Sit to stand: CGA by therapist and mild LOB Palpation: not tender. ROM: WFL in all planes of lumbar and LE. Strength: Core: poor, Hip: 4-/5 throughout Knee: 4/5, Ankle: 4/5. HR/TR: able with significant UE a for balance. Sitting Balance: static: fair Dynamic: fair with feet on the ground. Standing Balance: Static: fair minus, Dynamic: poor,. unable to SLS without significant UE support, Unable to tandem stance. looses balance posterior. Sensation/Reflex: WNl Plan Plan: Patient is back to prior to re-evaluation- re-establish balance and endurance for safety Goals Goal 1:: Patient will be I with HEP and progression Goal Time Frame: 4-6 Weeks Goal Progress: Progressing Goal 2:: Patient will ambulate >300 feet with a normalized pattern and LRD Goal Time Frame: 4-6 Weeks Goal Progress: Progressing Goal 3:: Patient will improve standing balance to fair minus Goal Time Frame: 4-6 Weeks Goal Progress: Progressing Goal 4:: Patient will report no falls for 2 weeks Goal Time Frame: 4-6 Weeks Goal Progress: Progressing Anticipated Interventions Patient/Client Instruction: Educate patient on: Benefits of Fitness Program For the Purpose of:: To increase tolerance to activity/condition/position Therapeutic Exercise to Include: Strength training, Endurance training, Balance training, Agility training, Body mechanics, Postural training, Flexibilty training, Gait and locomotor training, Dynamic Lumbar Stabilization, Scapular Strength/Stabilization For the Purpose of:: To improve muscle performance and motor function Functional Training to Include: ADL Training, Gait training For the Purpose of:: To improve ability to perform ADL's Please do not hesitate to contact me at [phone] by phone or if you have questions or concerns regarding this new plan of care! Sincerely, Susan You <Electronically signed by Susan You DPT> 11/05/17 1108 CC: Madhav Saba MD; Twan Coy MD ELR Signed For Medicare only, by signing this I certify the plan of care. Physicians Signature Date 12 LEAD ELECTROCARDIOGRAM Observed: 09/27/2017 Status: F Source: [place] 4:10 PM [facility] REPOSITORY [facility] Cardiovascular Services [address] [place] [address] 12 Lead EKG 09/20/17 0647 MR#: [id number] Acct: [id number] Name: KWAME WEBBER Rep #: [id number] : 1945 72 From: Scott De La Rosa MD Attending Dr: Gaston Spears DO Status: [facility] Ordering Dr: Manuel Chacon MD Date: 09/20/17 Location: [facility] Sex: F C Admitted: Test Reason : PRE-OP Blood Pressure : / mmHG Vent. Rate : 083 BPM Atrial Rate : 091 BPM P-R Int : 000 ms QRS Dur : 098 ms QT Int : 398 ms P-R-T Axes : 000 -50 010 degrees QTc Int : 467 ms Accelerated Junctional rhythm Left anterior fascicular block Voltage criteria for left ventricular hypertrophy Nonspecific ST abnormality Abnormal ECG Confirmed by RJ RUIZ, SCOTT ([id number]), editor at large MAYURI BLOUNT ([id number]) on 09/27/2017 4:10:01 PM Referred By: Gaston Spears Confirmed By:SCOTT DE LA ROSA MD 09/27/17 1610 Date Scott eD La Rosa MD CC: Manuel Chacon MD; Gaston Spears DO; Twan Coy MD Signed BEDSIDE GLUCOSE Collected: 09/20/2017 Status: F Source: [place] 9:02 AM [facility] REPOSITORY TYPE CODE TESTS RESULT OUT OF REFERENCE UNITS RANGE LAB L501.080 70-110 mg/dL High BEDSIDE GLU 244 Result Comment: MANAGEMENT OF PATIENT CARE PER NURSING PROTOCOL Performed By: #### L501.080 #### [facility] Laboratory Point of Care [address] [place] [address] OPERATIVE REPORT Observed: 09/20/2017 Status: F Source: [place] 8:15 AM [facility] REPOSITORY [facility] Medical Records Department [address] [place] [address] Operative Report 09/20/17 08 MR#: [id number] Acct: [id number] Name: KWAME WEBBER Rep #: [id number] : 1945 72 From: Gaston Spears DO PCP: Twan Coy MD Status: REG [facility] Y Location: [place] [address] Report of Operation Date of Procedure: 09/20/17 Pre-Operative Diagnosis: Distal radius fracture left extra-articular Post-Operative Diagnosis: Same Surgery/Procedure Performed:: Open reduction with internal fixation of left distal radius Description of Surgical Findings:: Extra-articular displaced distal radius fracture cat operator: Jani Landon Type of Anesthesia:: General Anesthesiologist: Maurizio Mcleod Estimated Blood Loss (mL): 5 Fluids Replaced: See anesthesia report Description of Procedure: Implants: Synthes distal radius locking plate Indications: Patient sustained a fall onto an outstretched left upper extremity and sustained a displaced distal radius fracture. Patient has elected to have this surgically corrected. Risks benefits and alternatives were discussed Procedure description: Patient was greeted in the preoperative area. Patient's left upper extremity was marked with surgical marker. Preoperative antibiotics were administered. The patient was then taken or [address] in stable condition. After adequate anesthesia was obtained and airway secured a well-padded tourniquet was placed the patient's left upper extremity. The arm was prepped and draped in usual sterile fashion. Surgical times performed surgery was commenced. Standard volar approach of Juan was performed. Incision was planned and carried out overlying the flexor carpi radialis. Incision was made with a 15 blade and dissection was then carried down to the flexor tendon sheath of the FCR. The tendon sheath was opened and the FCR was retracted radially. The roof of the flexor tendon sheath was opened. Blunt dissection was then carried down to the pronator quadratus on the volar aspect of the radius. The pronator quadratus was sharply removed off of the radial border of the radius and retracted medially. Wheat [place] retractor was then placed exposing the volar aspect of the distal radius. Fracture was noted and fibrous tissue was removed from the fracture site. A reduction maneuver was performed and the fracture was manipulated until anatomic. A plate was then placed on the volar aspect of the radius. This was provisionally fixated to the distal radius with K wires. Biplanar fluoroscopic imaging was then used to ensure appropriate placement of the plate on the distal radius. Once this was confirmed a bicortical distal nonlocking screw was then placed in order to reduce the plate to the bone. Once this was placed and confirmed to be appropriate depth as well as placement with respect to the articular surface the remaining screw holes of the plate were then placed in a locking type fashion. Excellent control of the distal fracture was obtained with the screws. The plate was then reduced to the proximal aspect of the radius thus restoring the patient's radial inclination height and tilt. 3 screws were placed proximally excellent purchase was obtained. Final fluoroscopic imaging was obtained. Irrigation was performed and the pronator quadratus was then closed with 2-0 Vicryl followed by a layered closure of the wound. A well-padded volar splint was applied and tourniquet was deflated. Patient was taken to the recovery room in stable condition. Physician unit assistant was integral in all portions of this procedure. They assisted with positioning the patient, draping the extremity, holding retractors, closing the wound, and applying the dressing. This was all done under my direct supervision. The physician unit assistant was essential for a successful, efficient surgery. Postoperatively: We will remove Ortho-Glass dressing at approximately 2 weeks and sutures. At that point will place in a removable brace or thermoplastic splint and initiate physical therapy no lifting greater than 2 pounds for approximately 6 weeks - Admit VTE Documentation VTE Present on Admission: Yes VTE Mechan Device Prophylaxis: SCD's VTE Pharm Prophylaxis ordered?: No 09/20/17 0815 <Electronically signed by Gaston Spears DO> Date Gaston Spears DO CC: Gaston Spears DO; Twan Coy MD Signed DISCHARGE INSTRUCTION Observed: 09/20/2017 Status: F Source: JAMES 8:12 AM [facility] Medical Records Department [address] [place] [address] Instructions for Home/Discharge Instructions 09/20/17 0811 MR#: [id number] Acct: [id number] Name: KWAME WEBBER Rep #: [id number] : 1945 72 From: Gaston Spears DO PCP: Twan Coy MD Status: REG [facility] Discharge Diet: No Restrictions Discharge Activity: May Not Drive, May Shower - keep dressing clean and dry Ice area for (Minutes): 20 Keep extremity elevated above heart level: Left Arm Call your doctor if your incision/area has: Continuous Slow Oozing, Sudden Increased Bleeding, Increased Pain/ Swelling, Increased Redness, Foul Smelling Discharge Call your doctor if you observe: Fever of 101 or Higher, Coldness, Increased Pain, Numbness or Tingling, Change in Color Suture Line Care: Avoid Pulling/Pushing Cleanse incision/area with: Keep Dressing Clean AND Dry Allergies/Adverse Reactions: Allergies adhesive tape Allergy (Verified 09/17/17 10:54) Rash Penicillins Allergy (Verified 09/17/17 10:54) Rash Medications to take at Discharge Clopidogrel Bisulfate [Plavix] 75 mg PO DAILY 09/12/16 Insulin Aspart [Novolog Flexpen (BKC)] 10 units SC BREAKFAST 09/12/16 Insulin Aspart [Novolog Flexpen (BKC)] 20 units SC DINNER 09/12/16 Insulin Aspart [Novolog Flexpen (BKC)] 20 units SC LUNCH 09/12/16 Insulin Detemir [Levemir (BKC)] 30 units SC QHS 09/12/16 Levothyroxine [Synthroid] 100 mcg PO DAILY 09/12/16 Pravastatin [Pravachol] 80 mg PO QHS 09/12/16 Amitriptyline HCl 75 mg PO QHS 09/13/17 Calcium Carbonate/Vitamin D3 [Calcium 500+D Tablet Chew] 1,500 mg PO BID 09/13/17 Cholecalciferol (Vitamin D3) [Vitamin D3] 1,000 unit PO BID 09/13/17 Docusate Sodium [Colace] 100 mg PO DAILY #20 cap 09/13/17 Fexofenadine HCl 180 mg PO DAILY 09/13/17 Hydrocodone Bitart/Apap 5-325 [[place] 5MG-325MG] 1 tab PO Q6H PRN PRN 3 Days #10 tab 09/13/17 Lisinopril 40 mg PO DAILY 09/13/17 Cyanocobalamin (Vitamin B-12) [Vitamin B-12] 500 mcg PO DAILY 09/17/17 Test Results: Test results from this visit will be discussed in further detail at your follow-up appointment, if applicable. Please Follow Up With: Gaston Spears DO When: as scheduled 09/20/17811 <Electronically signed by Gaston Spears DO> Date Gaston Spears DO CC: Twan Coy MD PROTHROMBIN TIME W/INR Collected: 09/20/2017 Status: F Source: JAMES 6:46 AM [facility] REPOSITORY TYPE CODE TESTS RESULT OUT OF RANGE REFERENCE UNITS LAB L300.4150 11.7-14.9 SECONDS Normal PROTIME 12.9 LAB L300.4200 Normal INR 1.0 Performed By: #### L300.3900, L300.4310 #### [facility] [address] [place], [address] PARTIAL THROMBOPLAST Collected: 09/20/2017 Status: F Source: [place] TIME 6:46 AM [facility] REPOSITORY TYPE CODE TESTS RESULT OUT OF RANGE REFERENCE UNITS LAB L300.4310 24.1-36.2 Seconds Normal PTT 26.0 Performed By: #### L300.3900, L300.4310 #### [facility] [address] [place], [address] BEDSIDE GLUCOSE Collected: 09/20/2017 Status: F Source: JAMES 6:31 AM [facility] REPOSITORY TYPE CODE TESTS RESULT OUT OF REFERENCE UNITS RANGE LAB L501.080 70-110 mg/dL High BEDSIDE GLU 234 Result Comment: MANAGEMENT OF PATIENT CARE PER NURSING PROTOCOL Performed By: #### L501.080 #### [facility] Point of Care [address] [place] [address] WRIST MIN 3 VIEWS Observed: 09/20/2017 Status: F Source: JAMES 5:54 AM [facility] REPOSITORY [facility] Imaging Services [address] [place] [address] Wrist min 3 Views MR#: [id number] Acct: [id number] Name: KWAME WEBBER Rep #: [id number] : 1945 F 72 From: Amandeep Dawkins MD PCP: Twan Coy MD Status: [facility] Study: Wrist min 3 Views Date of Exam: 09/20/17 Exam# [id number] Ordering Dr: Gaston Spears DO STUDY: X-RAY - LEFT WRIST REASON FOR EXAM: Female, 72 years old. Intraoperative imaging for ORIF of the distal radius. TECHNIQUE: 4 cone-down view(s) of the wrist were obtained intraoperatively. COMPARISON: None. FINDINGS: Intraoperative imaging provided for open reduction internal fixation of the distal radial fracture utilizing screw and sideplate fixation device. Avulsion fracture of the ulnar styloid. Postoperative soft tissue changes. RAD/Wrist min 3 Views IMPRESSION: Intraoperative imaging provided for open reduction and internal fixation of the distal radial fracture. There is good alignment. Electronically Signed: Amandeep Dawkins MD at 14:31 EDT Tel [phone], Service support , CC: Gaston Spears DO; Twan Coy MD Engineering Technical Specialist: Signed EMERGENCY DEPARTMENT Observed: 09/13/2017 Status: F Source: [place] SUMMARY 5:08 [facility] [place] [facility] Medical Records Department [address] [place] [address] Emergency Department Summary 09/13/17 0319 MR#: [id number] Acct: [id number] Name: KWAME WEBBER Rep #: [id number] : 1945 72 From: Ted Yang MD PCP: Twan Coy MD Status: REG ER - ER Visit Summary Date of Service: 09/13/17 Chief Complaint: Left wrist injury History of Present Illness: The patient is a 72 F presents to the emergency department left wrist injury. Patient was in her normal state of health. She was going to bed tonight. She thought that she was sitting on the bed, but was too far away. She ended up falling. She fell onto the wall and caught herself with an outstretched left wrist. She had immediate pain and noticed deformity. She did not strike her head. She denies other injury. Squad arrived and placed in a vacuum splint. She was brought here for further evaluation. Physical Examination: Afebrile, vitals unremarkable. Well- appearing female no acute distress. GCS 15. Examination of the left wrist: Patient does have abrasion over the ulnar styloid. There is no skin tenting. There is no evidence of open fracture. Pulses are normal. There is deformity. Anterior interosseous, posterior interosseous, ulnar nerve are preserved. Test Results: [] Emergency Department Course and Treatment: The patient did have obvious deformity of the left wrist. IV was established. She was given analgesics and antiemetics. X-ray does confirm distal radius fracture that is dorsally displaced and shortened. The patient underwent hematoma block with bupivacaine. Once anesthesia was achieved, I was able to reduce the fracture as best as I could. There did seem to be small fragments of her preventing complete reduction. However, the fracture was not out to length. The patient was placed in an AP splint and was very comfortable. Patient was discussed with orthopedics that she is likely going to need operative fixation. I did counselor marriage and family her on signs and symptoms of compartment syndrome and reasons to return. She will be discharged home with analgesics and orthopedic follow-up. Treatment Plan: [] Disposition: Discharge Impression: 1. Distal radius fracture of the left wrist 2. Hematoma block 3. Fracture reduction 4. Splint by ED physician This note was generated with [employer] dictation software. It may contain incorrect words, spelling, and punctuation that were not noted in review of the chart prior to signing ED Disposition - Plan for ED Patient: Chief Complaint: Upper Extremity Injury Instructions: ED Fx Colles Wrist Redu Requ Prescriptions: Hydrocodone Bitart/Apap 5-325 [[place] 5MG-325MG] 1 tab PO Q6H PRN PRN 3 Days #10 tab PRN Reason: Pain Docusate Sodium [Colace] 100 mg PO DAILY #20 cap Referrals: Gaston Spears DO [STAFF PHYSICIAN] - (Call today) What to do if you have Problems For any increased pain, shortness of breath, bleeding, nausea or vomiting, chest pain, or any unexpected problems, contact your Primary Care Provider. Call [facility] ([phone]) or report to the closest Emergency Room. Call 911 if necessary. 09/13/17 2783 <Electronically signed by Ted Yang MD> Date Ted Yang MD Cosigner Signature (If Indicated): Date CC: Twan Coy MD WRIST MIN 3 VIEWS Observed: 09/13/2017 Status: F Source: [place] 4:17 AM [facility] REPOSITORY [facility] Imaging Services [address] [place] [address] Wrist min 3 Views MR#: [id number] Acct: [id number] Name: KWAME WEBBER Rep #: [id number] : 1945 F 72 From: Miguel Giang PCP: Twan Coy MD Status: REG ER Study: Wrist min 3 Views Date of Exam: 09/13/17 Exam# [id number] Ordering Dr: Ted Yang MD STUDY: X-RAY - LEFT WRIST REASON FOR EXAM: Female, 72 years old. Post reduction. TECHNIQUE: 3 view(s) of the wrist were obtained. COMPARISON: September 13, 2017 at 3:28 am, FINDINGS: Overlying cast obscures fine bony detail. Significant improvement in the alignment of distal radius. There is now approximately one half shaft width dorsal lateral displacement of the distal radial fracture fragment and no significant angulation. The soft tissue structures are unremarkable. RAD/Wrist min 3 Views IMPRESSION: Fracture of the distal radial metaphysis with significantly improved alignment in a cast. Electronically Signed: Miguel Giang MD at 4:46 EDT , Service support , CC: Ted Yang MD; Twan Coy MD Engineering Technical Specialist: Signed WRIST MIN 3 VIEWS Observed: 09/13/2017 Status: F Source: [place]AMES 3:17 AM [facility] REPOSITORY [facility] Imaging Services [address] [place] [address] Wrist min 3 Views MR#: [id number] Acct: [id number] Name: KWAME WEBBER Rep #: [id number] : 1945 F 72 From: Miguel Giang PCP: Twan Coy MD Status: REG ER Study: Wrist min 3 Views Date of Exam: 09/13/17 Exam# [id number] Ordering Dr: Ted Yang MD STUDY: X-RAY - LEFT WRIST REASON FOR EXAM: Female, 72 years old. Fall. TECHNIQUE: 3 view(s) of the wrist were obtained. COMPARISON: None. FINDINGS: There is an oblique fracture through the distal radial metaphysis. The distal fracture fragment of the radius measures 3.1 x 2.8 cm and is displaced laterally nearly one complete shaft width, with foreshortening. There is apex medial angulation. Distal ulna is normal. No fracture identified involving the carpal bones. Soft tissue swelling. RAD/Wrist min 3 Views IMPRESSION: Significantly displaced fracture of the distal radial metaphysis. Electronically Signed: Miguel Giang MD at 3:43 EDT , Service support , CC: Ted Yang MD; Twan Coy MD Engineering Technical Specialist: Signed RE-EVALUATION - PT (1) Observed: 09/08/2017 Status: F Source: [place] 9:25 AM [facility] REPOSITORY [facility] [address] [place] [address] Fax REEVALUATION / MEDICARE RECERTIFICATION PHYSICAL THERAPY MR#: [id number] Acct: [id number] Name: KWAME WEBBER Rep #: [id number] : 1945 72 From: Susan You DPT Referring Dr.: Madhav Saba MD Status: REG RCR Insurance: MEDICARE PART A B AARP Madhav Saba MD, It has been my pleasure to treat KWAME WEBBER over the last 8 visits for Balance. Please see the progress note below for an update on the physical therapy plan of care! Subjective: Patient reports that she feels better- she feels that her balance is improved. She went to [place] and fell 2x- slid out of the bed and then fell when she was dancing. Fell getting into bed about a week ago. Objective/Function: Posture: FH, RS, increased kyphosis. Gait: slightly antalgic- wide ALEISHA- decreased stephanie. Palpation: not tender. ROM: WFL in all planes of lumbar and LE. Strength: Core: fair, Hip: 4/5 throughout Knee: 4/5, Ankle: 4/5. HR/TR: able with significant UE a for balance. Sitting Balance: static: fair Dynamic: fair Standing Balance: Static: fair , Dynamic: fair minus,. unable to SLS without significant UE support, Unable to tandem stance. looses balance posterior. Sensation/Reflex: WNl Plan Plan: Continue with POC 2x a week for 4 weeks- patient is more upbeat and moving better Goals Goal 1:: Patient will be I with HEP and progression Goal Time Frame: 4-6 Weeks Goal Progress: Progressing Goal 2:: Patient will ambulate >300 feet with a normalized pattern and LRD Goal Time Frame: 4-6 Weeks Goal Progress: Progressing Goal 3:: Patient will improve standing balance to fair minus Goal Time Frame: 4-6 Weeks Goal Progress: Progressing Goal 4:: Patient will report no falls for 2 weeks Goal Time Frame: 4-6 Weeks Goal Progress: Progressing Anticipated Interventions Patient/Client Instruction: Educate patient on: Benefits of Fitness Program For the Purpose of:: To increase tolerance to activity/condition/position Therapeutic Exercise to Include: Strength training, Endurance training, Balance training, Agility training, Body mechanics, Postural training, Flexibilty training, Gait and locomotor training, Dynamic Lumbar Stabilization, Scapular Strength/Stabilization For the Purpose of:: To improve muscle performance and motor function Functional Training to Include: ADL Training, Gait training For the Purpose of:: To improve ability to perform ADL's Please do not hesitate to contact me at [phone] by phone or if you have questions or concerns regarding this new plan of care! Sincerely, Susan You <Electronically signed by Susan You DPT> 09/08/17 0925 CC: Madhav Saba MD; Twan Coy MD ELR Signed For Medicare only, by signing this I certify the plan of care. Physicians Signature Date PT COMMUNICATION Observed: 08/17/2017 Status: F Source: [place] 9:31 AM [facility] REPOSITORY [facility] [address] [place] [address] Fax REHABILITATION SERVICES PROGRESS NOTE MR#: [id number] Acct: [id number] Name: KWAME WEBBER Rep #: [id number] : 1945 72 From: Maurizio Fairbanks DPT, OCS, CSCS Referring Dr.: Madhav Saba MD Status: REG RCR Insurance: MEDICARE PART A B AARP PT Communication Note 08/16/[address] Madhav Saba MD , Thank you for the referral of Kwame Webber to [facility] for balance assessment. I have enclosed a copy of the results for your review. In summation, she scored low on the Limits of Stability on forward excursion and control. She also scored low on the Sensory Organization Test on vestibular and center of gravity alignment. I will add exercises to aaddress these deficits to her plan of care. Please call if you have questions. Thank you. Sincerely, Maurizio Fairbanks DPT, OC Contact Information 08/17/17930 <Electronically signed by Maurizio Fairbanks DPT, OCS, CSCS> Date Maurizio Fairbanks DPT, OCS, CSCS Cosigner Signature (if applicable): Date CC: Madhav Saba MD; Twan Coy MD Signed For Medicare only, by signing this I certify the plan of care. Physicians Signature Date DOWNTIME REPORT Observed: 08/12/2017 Status: F Source: [place] 2:01 PM [facility] Medical Records Department [address] [place] [place] [address] Downtime Report MR#: [id number] Acct: [id number] Name: KWAME WEBBER Rep #: [id number] : 1945 72 From: Kishan Blount PCP: Twan Coy MD Status: REG CLI This patient was seen during an EMR downtime July 26, 2017 - August 02, 2017. This patient may have a combination of paper and electronic documentation or all paper documentation. All documentation is viewable within the e-chart portion of [employer] for each patient visit. INITAL EVALUATION (1) Observed: 08/09/2017 Status: F Source: [place] - PT 11:06 AM [facility] [address] [place] [address] Fax REHABILITATION SERVICES INITIAL EVALUATION MR#: [id number] Acct: [id number] Name: KWAME WEBBER Rep #: [id number] : 1945 72 From: Susan You DPT Referring Dr.: Madhav Saba MD Status: REG RCR Insurance: MEDICARE PART A B [facility] Patient's Visit Information KWAME WEBBER is a 72 year old F referred to Physical Therapy by Madhav Saba MD with a diagnosis of Balance. Date of Evaluation: 08/09/17 Physical Therapist: Susan You - Visit Plan Frequency: 2x /Week Duration: 4 Weeks Plan: Balance assessment (faxed to MD for approval), strength and core s/s. - Subjective Subjective: Dr. Saba recommended that she come see us for a balance assessment. She has been falling and they are not sure what its from. One second she is standing and then she is down. Last time she fell was 2 weeks ago and hit her head- went to the ER- and everything came back normal. Has been taking Tylenol for the discomfort. She has a meningionma in the brain- was diagnosed last September- saw a neurosurgeon- and was told it was not an option for surgery- did gamma knife radiation in November- did not shrink the tumor but it maintained the same size. Did a scan at the hospital last time she was there- blood work (platelets were low) which should not be an issue. Dr. Saba is running more tests to see if there was anything that would change her balance. When she falls she always goes backwards. Falls at least 1x a week- most of the time she is with her and he is able to pick her up from the floor. Last fall was Wednesday night onto her bed. But no pain is associated with the falls except for whatever she hits. Did not have any falls until she had the gamma knife radiation. Some MD's think its from meds, others from the procedure, and some just don't know. Sleep: not disturbed. No N/T in the toes but MD thinks she may have neuropathy. PMHx/meds: no changes since she was in the hospital a few weeks ago. - Objective Posture: FH, RS, increased kyphosis. Gait: antalgic- wide ALEISHA- decreased stephanie and poor heel/toe pattern. Palpation: not tender. ROM: WFL in all planes of lumbar and LE. Strength: Core: poor, Hip: 4-/5 throughout Knee: 4/5, Ankle: 4/5. HR/TR: able with significant UE a for balance. Sitting Balance: static: fair Dynamic: fair minus- patient had to use UE for righting herself when manual muscle testing without feet on the ground. Standing Balance: Static: fair minus, Dynamic: poor,. unable to SLS without significant UE support, Unable to tandem stance. looses balance posterior. Sensation/Reflex: WNl - Goals Goal 1:: Patient will be I with HEP and progression Goal Time Frame: 4-6 Weeks Goal 2:: Patient will ambulate >300 feet with a normalized pattern and LRD Goal Time Frame: 4-6 Weeks Goal 3:: Patient will improve standing balance to fair minus Goal Time Frame: 4-6 Weeks Goal 4:: Patient will report no falls for 2 weeks Goal Time Frame: 4-6 Weeks - Rehabilitation Potential Physical Therapy Diagnosis: Patient presents with hypomobility- she has decreased strength and poor balance in sitting and standing leading to increase falls. Rehabilitation Potential: Fair - Anticipated Interventions Patient/Client Instruction: Educate patient on: Benefits of Fitness Program For the Purpose of:: To increase tolerance to activity/condition/position Therapeutic Exercise to Include: Strength training, Endurance training, Balance training, Agility training, Body mechanics, Postural training, Flexibilty training, Gait and locomotor training, Dynamic Lumbar Stabilization, Scapular Strength/Stabilization For the Purpose of:: To improve muscle performance and motor function Functional Training to Include: ADL Training, Gait training For the Purpose of:: To improve ability to perform ADL's Thank you for the opportunity to evaluate your patient. For Medicare and Medicare HMO plans, please review the plan of care and approve it. It will need to be FAXED BACK to us at [phone] for Medicare purposes. Please let me know if there are questions or concerns regarding this plan of care. Physician Signature: Date: <Electronically signed by Susan You DPT> 08/09/17 1106 CC: Madhav Saba MD; Twan Coy ELR Signed For Medicare only, by signing this I certify the plan of care. Physicians Signature Date THYROID STIM HORMONE Collected: 07/30/2017 Status: F Source: [place] (TSH) 9:32 AM [facility] REPOSITORY Order Comment: Is Patient Taking Vitamins or Folic Acid Supplements? N TYPE CODE TESTS RESULT OUT OF RANGE REFERENCE UNITS LAB L501.9520 0.358-3.74 uIU/mL Normal TSH 3.66 Performed By: #### L501.9520, L505.7010, L506.0250 #### [facility] [address] [place], [place], [address] RHEUMATOID FACTOR Collected: 07/30/2017 Status: F Source: [place] 9:32 AM [facility] REPOSITORY Order Comment: Is Patient Taking Vitamins or Folic Acid Supplements? N TYPE CODE TESTS RESULT OUT OF RANGE REFERENCE UNITS LAB L505.7010 <15 IU/mL Normal RHEUMATOID FAC < 10.0 Performed By: #### L501.9520, L505.7010, L506.0250 #### [facility] [address] [place], [place], [address] FOLATES, (FOLIC ACID) Collected: 07/30/2017 Status: F Source: [place] 9:32 AM [facility] REPOSITORY Order Comment: Is Patient Taking Vitamins or Folic Acid Supplements? N TYPE CODE TESTS RESULT OUT OF RANGE REFERENCE UNITS LAB L506.0250 3.1-55.4 ng/mL Normal FOLATES 42.00 Performed By: #### L501.9520, L505.7010, L506.0250 #### [facility] [address] [place], [address] ERYTHROCYTE SED RATE Collected: 07/30/2017 Status: F Source: [place] 9:32 AM [facility] REPOSITORY TYPE CODE TESTS RESULT OUT OF RANGE REFERENCE UNITS LAB L102.0000 0-30 mm/hr Normal SED RATE 13 Performed By: #### L101.9900 #### [facility] [address] [place], [place], [address] VITAMIN B12 Collected: 07/30/2017 Status: F Source: [place] 9:32 AM [facility] REPOSITORY TYPE CODE TESTS RESULT OUT OF RANGE REFERENCE UNITS LAB L503.0105 211-911 pg/mL Normal Vitamin B12 637 Performed By: #### L503.0105, L3890.6005 #### [facility] [address] [place], [address] HIV - [facility] Collected: 07/30/2017 Status: F Source: [place] 9:32 AM [facility] REPOSITORY TYPE CODE TESTS RESULT OUT OF RANGE REFERENCE UNITS LAB L3890.6005 Nonreactive Normal HIV - [facility] Non-Reactive Performed By: #### L503.0105, L3890.6005 #### [facility] [address] [place], [address] ANTINUCLEAR ANTIBODIES Collected: 07/30/2017 Status: F Source: [place] DIRECT 9:32 AM [facility] REPOSITORY TYPE CODE TESTS RESULT OUT OF RANGE REFERENCE UNITS LAB L3100.5475 Normal POLA-DIRECT Result Comment: TEST RESULT UNITS REF INTERVAL Antiextractable Nuclear Ag QUALITY ASSURANCE MONITOR FINAL Antibodies <0.2 AI 0.0 - 0.9 Romero Antibodies <0.2 AI 0.0 - 0.9 Antinuclear Antibodies Direct POLA Direct Negative Negative TESTING PERFORMED AT [facility]. ORIGINAL REPORT ON FILE IN LAB CONTAINS ADDITIONAL TEST SITE INFORMATION. Performed By: #### L3100.5475 #### [facility] (refer to report for specific site) refer to report for address and phone number HEPATITIS C ANTIBODIES Collected: 07/30/2017 Status: F Source: [place] 9:32 AM [facility] REPOSITORY Order Comment: Specimen Comment: A duplicate report has been generated due to demographic Specimen Comment: updates. TYPE CODE TESTS RESULT OUT OF RANGE REFERENCE UNITS LAB L3100.0650 0.0-0.9 s/co ratio Normal HEP C AB 0.1 Result Comment: Negative: < 0.8 Indeterminate: 0.8 - 0.9 Positive: > 0.9 The CDC recommends that a positive HCV antibody result be followed up with a HCV Nucleic Acid Amplification test ([id number]). Performed at: [address] [id number] Dredge Master: Pierce Mccormack PhD, Phone: [phone] Performed By: #### L3100.0625, L3100.3450, L3200.1275 #### [facility] (refer to report for specific site) refer to report for address and phone number PROTEIN ELECTROPH, S Collected: 07/30/2017 Status: F Source: [place] 9:32 AM [facility] REPOSITORY Order Comment: Specimen Comment: A duplicate report has been generated due to demographic Specimen Comment: updates. TYPE CODE TESTS RESULT OUT OF RANGE REFERENCE UNITS LAB L3100.3500 6.0-8.5 g/dL Normal PROTEIN,TOTAL 6.2 LAB L3100.3600 2.9-4.4 g/dL Normal ALBUMIN 3.3 LAB L3100.3700 0.0-0.4 g/dL Normal ALPHA-1 GLOBUL 0.2 LAB L3100.3800 0.4-1.0 g/dL Normal ALPHA-2 GLOBUL 0.9 LAB L3100.3900 0.7-1.3 g/dL Normal BETA GLOBULIN 1.0 LAB L3100.4000 0.4-1.8 g/dL Normal GAMMA GLOBULIN 0.7 LAB L3100.4110 Normal M-SPIKE Result Comment: NOT OBSERVED LAB L3100.4200 2.2-3.9 g/dL GLOBULIN, TOTAL Normal 2.9 LAB L3100.4300 0.7-1.7 A/G RATIO Normal 1.1 LAB L3100.4320 . INTERPRETATION Normal Comment Result Comment: Protein electrophoresis scan will follow via computer, mail, or labor representative delivery. LAB L3100.4340 . Normal NOTE: Comment Result Comment: The SPE pattern appears essentially unremarkable. Evidence of monoclonal protein is not apparent. Performed By: #### L3100.0625, L3100.3450, L3200.1275 #### [facility] (refer to report for specific site) refer to report for address and phone number IMMUNOFIXATION, SERUM Collected: 07/30/2017 Status: F Source: [place] 9:32 AM [facility] REPOSITORY Order Comment: Specimen Comment: A duplicate report has been generated due to demographic Specimen Comment: updates. TYPE CODE TESTS RESULT OUT OF RANGE REFERENCE UNITS LAB L3200.4320 878-8668 mg/dL Low IMMUNO G 683 LAB L3200.1400 64-422 mg/dL Normal IMMUNO A 218 LAB L3200.1500 26-217 mg/dL Normal IMMUNOGL M 67 LAB L3200.1505 . Normal JAZIEL RESULT,S Comment Result Comment: No monoclonality detected. Performed By: #### L3100.0625, L3100.3450, L3200.1275 #### [facility] (refer to report for specific site) refer to report for address and phone number EMERGENCY DEPARTMENT Observed: 07/26/2017 Status: F Source: [place] SUMMARY 12:18 AM [facility] REPOSITORY [facility] Medical Records Department [address] [place] [address] Emergency Department Summary 07/25/172012 MR#: [id number] Acct: [id number] Name: KWAME WEBBER Rep #: [id number] : 1945 72 From: Dash Arzate MD PCP: Twan Coy Status: DEP ER - ER Visit Summary Date of Service: 07/25/17 Chief Complaint: Fall and head injury on Plavix History of Present Illness: The patient is a 72 F history of insulin-dependent diabetes, CAD with cardiac stent and known renal insufficiency and known meningioma. Next field patient was in her kitchen on Wednesday fell hit her head on the counter. No LOC. She was not evaluated that time. She states she did not have a syncopal event. She also hit her right great toe when she fell. And right shoulder. Physical Examination: Well-appearing older female. Vital signs are stable afebrile. H EENT exam pupils round reactive light. No signs of facial trauma. Posterior midline of her scalp there is a laceration with dried blood. It is not actively bleeding. Minimally tender. Currently there is no significant hematoma but reportedly per the patient there was. C-spine nontender. Trachea midline. Full range of motion to her neck. Lungs clear to auscultation bilaterally. Heart regular rate and rhythm no murmur. Rate in 90s. Chest wall nontender. Abdomen soft nontender. Pelvic girdle intact. She is moving all 4 extremities. They are neurovascularly intact. Specifically the right clavicle and shoulder are nontender with normal range of motion. No deformity or tenderness. The right elbow and wrist and hand are nontender neurovascularly intact. Her right great toe is small bruising with a healing superficial laceration. There is no gross bony deformity or significant tenderness. Both lower extremities are neurovascularly intact without gross deformities otherwise. Back exam nontender. The cervical, thoracic and lumbar spine are nontender. Neurologically she is awake and alert. GCS of 15. NIH is 0. Test Results: CT of her brain shows no acute abnormality. No fracture nor intracranial bleed. As read by the radiologist reviewed by me. CBC was normal with an H AND H of 12 and 38. Her platelet count was slightly low at 144,000 which I discussed and she can follow-up. Electrolytes are unremarkable. She has chronic renal insufficiency with a creatinine 1.52 similar to prior chemistry panels. Orthostatic vital signs her blood pressure did drop but she was completely asymptomatic. Nurses also ambulated patient and she did well. Emergency Department Course and Treatment: Repeat exam patient is doing well at 1945. Once her CAT scan reading returns she will be discharged. Treatment Plan: Follow up with her primary care physician as needed. Disposition: Discharge Impression: Acute fall with closed head injury on Plavix Posterior scalp laceration healing. Right great toe contusion This note was generated with [employer] dictation software. It may contain incorrect words, spelling, and punctuation that were not noted in review of the chart prior to signing ED Disposition - Plan for ED Patient: Chief Complaint: Fall Referrals: Twan Coy MD [Primary Care Provider] - What to do if you have Problems For any increased pain, shortness of breath, bleeding, nausea or vomiting, chest pain, or any unexpected problems, contact your Primary Care Provider. Call [facility] ([phone]) or report to the closest Emergency Room. Call 911 if necessary. 07/26/1717 <Electronically signed by Dash Arzate MD> Date Dash Arzate MD Cosigner Signature (If Indicated): Date CC: Twan Coy DISCHARGE INSTRUCTION Observed: 07/26/2017 Status: F Source: [place] 12:18 AM [facility] REPOSITORY [facility] Medical Records Department [address] [place] [address] Discharge Instruction 07/25/172017 MR#: [id number] Acct: [id number] Name: KWAME WEBBER Rep #: [id number] : 1945 72 From: Dash Arzate MD PCP: Twan Coy Status: DEP ER ED Disposition - Plan for ED Patient: Disposition: Home or Assisted Living Chief Complaint: Fall Instructions: ED Head Injury Closed Referrals: Twan Coy MD [Primary Care Provider] - 3-5 Days if not improving Additional Instructions: Labs today were basically unremarkable except for a platelet count of 144,000. That is just below normal. You can have that rechecked in several weeks. Follow-up your primary care physician as needed. What to do if you have Problems For any increased pain, shortness of breath, bleeding, nausea or vomiting, chest pain, or any unexpected problems, contact your Primary Care Provider. Call [employer] [facility] ([phone]) or report to the closest Emergency Room. Call 911 if necessary. 07/26/1717 <Electronically signed by Dash Arzate MD> Date Dash Arzate MD Cosigner Signature (If Indicated): Date CC: Twan Guillennan CBC W/DIFF, AUTOMATED Collected: 07/25/2017 Status: F Source: [place] 7:35 PM [facility] REPOSITORY TYPE CODE TESTS RESULT OUT OF RANGE REFERENCE UNITS LAB L100.1000 4.4-11.0 K/mm3 Normal WBC 10.4 LAB L100.1200 4.2-5.4 M/mm3 Low RBC 4.17 LAB L100.1300 12.0-15.0 g/dl Normal HGB 12.7 LAB L100.1400 37-47 % Normal HCT 38.2 LAB L100.1500 81-99 fL Normal MCV 91.6 LAB L100.1600 27.0-32.0 pg Normal MCH 30.5 LAB L100.1700 32-36 g/gl Normal MCHC 33.2 LAB L100.1810 11.6-14.6 % Normal RDW CV 13.5 LAB L100.1820 35.1-43.9 fl High RDW SD 44.3 LAB L100.1900 150-450 K/mm3 Low PLT 144 LAB L100.2000 6.2-12.0 fl Normal MPV 10.7 LAB L100.2100 47-70 % High NEUT% 77.5 LAB L100.2200 19-41 % Low LY% 12.2 LAB L100.2300 0-10 % Normal MONO% 8.6 LAB L100.2400 0-5 % Normal EO% 1.3 LAB L100.2500 0-1 % Normal BASO% 0.2 LAB L100.2550 0.0-0.9 % Normal IM GRAN % 0.200 Result Comment: IG% - Immature Granulocytes (promyelocytes, myelocytes and metamyelocytes) > 1% indicates that a LEFT SHIFT is Present. LAB L100.2620 2.0-7.7 X10 3/uL High Absolute Neut 8.1 LAB L100.2720 0.83-4.51 X10 3/ul Normal Absolute Lymph 1.27 Performed By: #### L100.0100 #### [facility] [address] [place], [address] BASIC METABOLIC Collected: 07/25/2017 Status: F Source: [place] PROFILE (BMP) 7:35 PM [facility] REPOSITORY TYPE CODE TESTS RESULT OUT OF RANGE REFERENCE UNITS LAB L501.0100 74-106 mg/dL Normal GLU 89 Result Comment: Please note revised GLUCOSE reference range effective 2017. LAB L501.1000 7-18 mg/dL High BUN 39 LAB L501.1100 0.55-1.02 mg/dL High CREAT,SERUM 1.52 Result Comment: The validity of the calculated GFR AND GFRAA in patients over 70 years has not been determined. Clinical correlation is essential. LAB L501.1110 >60 mL/min Low EST GFR 36 Result Comment: Non- GFR Calc LAB L501.1115 >60 mL/min Low EST GFR - AA 43 Result Comment: GFR Calc LAB L501.1255 ml/min Normal Estimated CRCL 32.76 LAB L501.1300 10-20 RATIO High BUN/CRE 25.7 LAB L501.2200 8.5-10 mg/dL Normal .1 CA 9.4 LAB L501.5300 136-14 mmol/L Normal 5 NA 140 LAB L501.5600 3.5-5. mmol/L Normal 1 K 3.9 LAB L501.5900 98-107 mmol/L Normal CL 103 LAB L501.6100 21.0-3 mmol/L Normal 2.0 CO2 28.0 LAB L501.6200 5-15 Normal GAP 9 Performed By: #### L500.2500 #### [facility] [address] [place], [address] BRAIN/HEAD WITHOUT Observed: 07/25/2017 Status: F Source: [place] CONTRAST 7:34 PM [facility] REPOSITORY [facility] Imaging Services [address] [place] [address] Brain/Head without Contrast MR#: [id number] Acct: [id number] Name: KWAME WEBBER Rep #: [id number] : 1945 F 72 From: Carlos Salcedo MD PCP: Twan Coy Status: REG ER Study: Brain/Head without Contrast Date of Exam: 07/25/17 Exam# [id number] Ordering Dr: Dash Arzate MD STUDY: CT BRAIN WITHOUT CONTRAST REASON FOR EXAM: Female, 72 years old. Fall RADIATION DOSAGE (If Supplied By Facility): CTDIvol = ( 44.99 ) mGy, DLP = ( 796.11 ) mGycm TECHNIQUE: Transaxial CT imaging of the brain was performed without administration of intravenous contrast material. Individualized dose optimization techniques were used for this CT. COMPARISON: MRI dated 07/06/2017 FINDINGS: There is no acute bleed or infarct. There are stable chronic ischemic and atrophic changes. There are basal ganglia calcifications noted. The ventricles are normal in configuration. There is no hydrocephalus. The visualized paranasal sinuses are clear. The mastoid air cells are well aerated. There is no skull fracture. There is mild scalp soft tissue swelling in the left posterior parietal region. CT/Brain/Head without Contrast IMPRESSION: Stable chronic ischemic and atrophic changes. No acute intracranial abnormality. Mild scalp soft tissue swelling in the left posterior parietal region. Electronically Signed: Carlos Salcedo, at 20:15 EDT Tel , Service support , CC: Dash Arzate MD; Twan Coy Engineering Technical Specialist: Signed BRAIN W/WO CONTRAST Observed: 07/06/2017 Status: F Source: [place] 12:52 PM [facility] REPOSITORY [facility] Imaging Services [address] [place] [address] Brain W/WO Contrast MR#: [id number] Acct: [id number] Name: KWAME WEBBER Rep #: [id number] : 1945 F 72 From: Domenic Padilla PCP: Twan Coy Status: REG CLI Study: Brain W/WO Contrast Date of Exam: 07/06/17 Exam# [id number] Ordering Dr: MISSIOS, SYMEON STUDY: MRI BRAIN WITH AND WITHOUT CONTRAST REASON FOR EXAM: Female, 72 years old. Tumor check-up, gamma knife 12/03/17, no new comlpaints. TECHNIQUE: Standardized multiplanar fat and water weighted pulse sequences were obtained. 9 ml of Gadavist contrast material was administered intravenously for the contrast portion of the examination. COMPARISON: October 22, 2016 FINDINGS: Normal size of the ventricles and extra-axial spaces for the patient's age. There are multiple white matter hyperintensities, distributed throughout the deep white matter tracts of the cerebral hemispheres, consistent with moderate chronic white matter ischemic changes. Normal bilateral basal ganglia. Normal thalami. There is no extra-axial fluid accumulation. Normal flow voids within the major intracranial circulation suggesting patency by spin echo criteria. Normal venous enhancement. Again noted is a the right CP angle/trigeminal cave enhancing mass without change since the prior examination, most consistent with meningioma. There is mild mass effect on the adjacent nate. There is no edema. Normal sella turcica, pituitary gland, infundibular stalk, optic chiasm and hypothalamus. Normal tectal plate and pineal gland. There are chronic white matter ischemic changes of the nate. The midbrain and medulla are otherwise normal. Normal cerebellum. Normal basal cisterns. Normal bilateral temporal bones. Normal bilateral internal auditory canals. MRI/Brain W/WO Contrast IMPRESSION: Stable right CP angle/Meckel's cave likely meningioma. Electronically Signed: Domenic Padilla MD at 13:10 EDT Tel , Service support , CC: KALLIE Coy Engineering Technical Specialist: Signed BASIC METABOLIC Collected: 06/28/2017 Status: F Source: [place] PROFILE (BMP) 10:13 AM [facility] REPOSITORY TYPE CODE TESTS RESULT OUT OF RANGE REFERENCE UNITS LAB L501.0100 74-106 mg/dL High GLU 126 Result Comment: Fasting Glucose result greater than or equal to 126 mg/dL suggests DIABETES MELLITUS per A.D.A. criteria. Please note revised GLUCOSE reference range effective 2017. LAB L501.1000 7-18 mg/dL High BUN 29 LAB L501.1100 0.55-1.02 mg/dL High CREAT,SERUM 1.52 Result Comment: The validity of the calculated GFR AND GFRAA in patients over 70 years has not been determined. Clinical correlation is essential. LAB L501.1110 >60 mL/min Low EST GFR 36 Result Comment: Non- GFR Calc LAB L501.1115 >60 mL/min Low EST GFR - AA 43 Result Comment: GFR Calc LAB L501.1300 10-20 RATIO Normal BUN/CRE 19.1 LAB L501.2200 8.5-10.1 mg/dL CA Normal 9.3 LAB L501.5300 136-145 mmol/L NA Normal 145 LAB L501.5600 3.5-5.1 mmol/L K Normal 4.0 LAB L501.5900 98-107 mmol/L High CL 108 LAB L501.6100 21.0-32.0 mmol/L Normal CO2 28.0 LAB L501.6200 5-15 Normal GAP 9 Performed By: #### L500.2500 #### [facility] [address] [place], [address] BASIC METABOLIC Collected: 06/10/2017 Status: F Source: [place] PROFILE (BMP) 9:41 AM [facility] REPOSITORY Order Comment: BUN,CREATININE FOR DR DEY BMP FOR DR SOUTH TYPE CODE TESTS RESULT OUT OF RANGE REFERENCE UNITS LAB L501.0100 74-106 mg/dL High GLU 136 Result Comment: Fasting Glucose result greater than or equal to 126 mg/dL suggests DIABETES MELLITUS per A.D.A. criteria. Please note revised GLUCOSE reference range effective 2017. LAB L501.1000 7-18 mg/dL High BUN 31 LAB L501.1100 0.55-1.02 mg/dL High CREAT,SERUM 1.52 Result Comment: The validity of the calculated GFR AND GFRAA in patients over 70 years has not been determined. Clinical correlation is essential. LAB L501.1110 >60 mL/min Low EST GFR 36 Result Comment: Non- GFR Calc LAB L501.1115 >60 mL/min Low EST GFR - AA 43 Result Comment: GFR Calc LAB L501.1300 10-20 RATIO High BUN/CRE 20.4 LAB L501.2200 8.5-10.1 mg/dL CA Normal 9.0 LAB L501.5300 136-145 mmol/L NA Normal 142 LAB L501.5600 3.5-5.1 mmol/L K Normal 4.4 LAB L501.5900 98-107 mmol/L CL Normal 104 LAB L501.6100 21.0-32.0 mmol/L Normal CO2 29.0 LAB L501.6200 5-15 Normal GAP 9 Performed By: #### L500.2500 #### [facility] [address] [place], [address] RENAL PROFILE Collected: 05/19/2017 Status: F Source: [place] 11:14 AM [facility] REPOSITORY TYPE CODE TESTS RESULT OUT OF RANGE REFERENCE UNITS LAB L501.0100 74-106 mg/dL Normal GLU 90 Result Comment: Please note revised GLUCOSE reference range effective 2017. LAB L501.1000 7-18 mg/dL High BUN 57 LAB L501.1100 0.55-1.02 mg/dL High CREAT,SERUM 1.97 Result Comment: The validity of the calculated GFR AND GFRAA in patients over 70 years has not been determined. Clinical correlation is essential. LAB L501.1110 >60 mL/min Low EST GFR 26 Result Comment: Non- GFR Calc LAB L501.1115 >60 mL/min Low EST GFR - AA 32 Result Comment: GFR Calc LAB L501.1300 10-20 RATIO High BUN/CRE 28.9 LAB L501.1800 3.2-5.0 g/dL Normal ALB 3.5 LAB L501.2200 8.5-10.1 mg/dL CA Normal 9.3 LAB L501.2300 2.5-4.9 mg/dL Normal PHOS 4.0 LAB L501.5300 136-145 mmol/L NA Normal 141 LAB L501.5600 3.5-5.1 mmol/L K Normal 3.9 LAB L501.5900 98-107 mmol/L CL Normal 101 LAB L501.6100 21.0-32.0 mmol/L Normal CO2 32.0 Performed By: #### L500.3600 #### [facility] [address] [facility] [address] [place], [place], [address] CBC-COMPLETE BLOOD CNT Collected: 05/19/2017 Status: F Source: [place] NO DIFF 11:14 AM [facility] REPOSITORY TYPE CODE TESTS RESULT OUT OF RANGE REFERENCE UNITS LAB L100.1000 4.4-11.0 K/mm3 Normal WBC 7.9 LAB L100.1200 4.2-5.4 M/mm3 Low RBC 3.98 LAB L100.1300 12.0-15.0 g/dl Normal HGB 12.2 LAB L100.1400 37-47 % Normal HCT 37.6 LAB L100.1500 81-99 fL Normal MCV 94.5 LAB L100.1600 27.0-32.0 pg Normal MCH 30.7 LAB L100.1700 32-36 g/gl Normal MCHC 32.4 LAB L100.1810 11.6-14.6 % Normal RDW CV 12.8 LAB L100.1820 35.1-43.9 fl Normal RDW SD 43.0 LAB L100.1900 150-450 K/mm3 Normal PLT 195 LAB L100.2000 6.2-12.0 fl Normal MPV 11.0 Performed By: #### L100.0500 #### [facility] [address] [facility] [place], [place], [address] VITAMIN D,25 HYDROXY Collected: 05/19/2017 Status: F Source: [place] 11:14 AM [facility] REPOSITORY TYPE CODE TESTS RESULT OUT OF RANGE REFERENCE UNITS LAB L506.1000 29.95-100.01 ng/mL Normal Vitamin D 58.1 25-OH Result Comment: Vitamin D 25(OH) Status Range Deficiency <20 ng/mL (50nmol/L) Insuffciency 20 - 30 ng/mL (50 - 75 nmol/L) Sufficiency 30 - 100 ng/mL (75 - 250 nmol/L) Toxicity >100 ng/mL (>250 nmol/L) Performed By: #### L506.1000 #### [facility] [address] [facility] [place], [place], [address] PTHIN Collected: 05/19/2017 Status: F Source: [place] 11:14 AM [facility] REPOSITORY TYPE CODE TESTS RESULT OUT OF RANGE REFERENCE UNITS LAB L509.1000 18.4-80.1 pg/mL Normal PTHIN 41.9 Result Comment: Please Note: PTH INTACT METHOD AND REFERENCE RANGE CHANGE Effective 02/10/2017. Performed By: #### L509.1000 #### [facility] [address] [place], [address] PROTEIN+CREATININE Collected: Status: F Source: [place] RATIO,URINE 05/19/2017 11:14 AM [facility] REPOSITORY Order Comment: PATIENT UNABLE TO VOID. BRINGING SPECIMEN BACK IN. PT RETURNED AT 1700 WITH URINE/RHICKS TYPE CODE TESTS RESULT OUT OF RANGE REFERENCE UNITS LAB L501.1200 NO RANGE EST. mg/dL Normal UR CREAT 95.10 LAB L501.1930 <11.9 mg/dL Normal 9.0 PROTEIN,UR.R AN. LAB L501.1940 0-200 mg/g CRE Normal PROT:CRE 95 RATIO Performed By: #### L501.0900 #### [facility] [address] [place], [address] COMPREHENSIVE METABOLIC Collected: 04/28/2017 Status: F Source: [place] PROFIL 4:52 PM [facility] REPOSITORY TYPE CODE TESTS RESULT OUT OF RANGE REFERENCE UNITS LAB L501.0100 74-106 mg/dL Normal GLU 83 Result Comment: Please note revised GLUCOSE reference range effective 2017. LAB L501.1000 7-18 mg/dL High BUN 49 LAB L501.1100 0.55-1.02 mg/dL High CREAT,SERUM 1.62 Result Comment: The validity of the calculated GFR AND GFRAA in patients over 70 years has not been determined. Clinical correlation is essential. LAB L501.1110 >60 mL/min Low EST GFR 33 Result Comment: Non- GFR Calc LAB L501.1115 >60 mL/min Low EST GFR - AA 40 Result Comment: GFR Calc LAB L501.1300 10-20 RATIO High BUN/CRE 30.2 LAB L501.1500 6.4-8.2 g/dL T Normal PROT 6.8 LAB L501.1800 3.2-5.0 g/dL Normal ALB 3.3 LAB L501.1950 2.2-4.2 g/dL Normal GLOB 3.5 LAB L501.2000 0.9-2.4 RATIO Normal A/G 0.9 LAB L501.2200 8.5-10.1 mg/dL CA Normal 9.0 LAB L501.4100 15-37 U/L Low AST 14 LAB L501.4305 45-117 U/L Normal ALK P 59 LAB L501.4405 13-56 U/L Normal ALT 20 Result Comment: Please note revised ALT reference range effective 2017. LAB L501.4600 0.20-1.00 mg/dL Normal T BILI 0.30 LAB L501.5300 136-145 mmol/L Normal NA 144 LAB L501.5600 3.5-5.1 mmol/L Normal K 4.4 LAB L501.5900 98-107 mmol/L Normal CL 107 LAB L501.6100 21.0-32.0 mmol/L Normal CO2 27.0 LAB L501.6200 5-15 Normal GAP 10 Performed By: #### L500.4050, L501.9520 #### [facility] [address] [place], [place], [address] THYROID STIM HORMONE Collected: 04/28/2017 Status: F Source: [place] (TSH) 4:52 PM [facility] REPOSITORY TYPE CODE TESTS RESULT OUT OF RANGE REFERENCE UNITS LAB L501.9520 0.358-3.74 uIU/mL Normal TSH 2.14 Performed By: #### L500.4050, L501.9520 #### [facility] [address] [place], [address] ALLERGIES ALLERGIES DATE TYPE / CODE NAME / CODE REACTION SEVERITY SOURCE 02/02/2018 Drug Penicillins/[id number] Rash Unknown [place] Allergy/416 476(RXNORM) [place] [address]([facility] ED CT) Repository 02/02/2018 Drug adhesive Rash Unknown [place] Allergy/416 tape/[id number](RXN [facility]ly [facility] 294283[facility] ED CT) Repository 12/03/2016 DRUG LEVOFLOXACIN Mental Chg [facility] INGREDI/419 Other [place] [address](SNOM Repository ED CT) /[id number] LEVOFLOXACIN [facility] 6([facility] CT) Repository ENCOUNTERS ENCOUNTERS ADMIT/DISCHARGE ACCOUNT NUMBER ADMITTING ENCOUNTER LOCATION SOURCE CLASS 02/07/2018/02/08/20 [id number] Ambulatory [address] ding:SDC Repository 01/26/2018 [id number] Ambulatory [facility] ding:PT Repository 01/25/2018/01/26/20 [id number] Ambulatory BMSBuilding: [place] [address] Repository 01/24/2018 [id number] Ambulatory BMSBuilding: [place] BMS.CF.[facility] Repository 01/24/2018 [id number] Ambulatory [facility] ding:CVS Repository 12/29/2017/12/30/19 [id number] Ambulatory [address] ding:PT Repository 12/25/2017/12/27/19 [id number] [place], Inpatient [place] [address] ding:PCURoom Repository : ZQH606Ddb: 1 12/25/2017 [id number] [place], Ambulatory BMSBuilding: [place] BMS.[facility] Repository 12/25/2017/12/27/19 [id number] Ambulatory BMSBuilding: [place] 18 [facility] Repository 12/25/2017 [id number] [place], Ambulatory BMSBuilding: [place]oj BMS.[facility] Repository 12/25/2017 [id number] [place], Ambulatory BMSBuilding: [place] BMS.[facility] Repository 12/23/2017 [id number] Ambulatory [facility] ding:LAB Repository 12/15/2017/12/16/19 [id number] Emergency [address] ding:ED Repository 12/02/2017/12/03/19 [id number] Ambulatory BMSBuilding: [place] [address] BMS.[facility] Repository 12/01/2017 [id number] Ambulatory BMSBuilding: [place] BMS.[facility] Repository 09/20/2017/09/21/19 [id number] Ambulatory [address] ding:SDC Repository 09/20/2017 [id number] Ambulatory BMSBuilding: [place] [facility] Repository 09/13/2017/09/14/19 [id number] Emergency [place] ding:ED Repository 07/30/2017 [id number] Ambulatory [facility] ding:LAB Repository 07/25/2017/07/26/19 [id number] Emergency [place] ding:ED Repository 07/06/2017 [id number] Ambulatory [facility] ding:MRI Repository 06/28/2017 [id number] Ambulatory [facility] ding:LAB Repository 06/17/2017 [id number] Ambulatory [facility] Other [place] Repository 06/17/2017 [id number] Ambulatory [facility] MEDICAL Repository CENTERBuildi ng:[facility] 06/10/2017 [id number] [facility] ding:LAB Repository 05/19/2017 [id number] [facility] ding:LAB Repository 04/28/2017 [id number] Ambulatory [facility] ding:BFHLAB Repository PAYERS PAYERS ENCOUNTER GUARANTOR PAYER SUBSCRIBER SOURCE 02/07/2018 [place] Primary KWAME A Willits [id number] Insurance:[facility] PART A BPolicy Number: [id number] [place] [id number] Repository 10590Kqc: 330) Date:2018-01-25 [phone] () 02/07/2018 Secondary KWAME A James Insurance:AARPPolicy [facility] Number: [id number] Hospital [id number] Repository Date:1014-87-19[address]GMBGCQV, [place] [address]RZ: 02/07/2018 Tertiary NOT GIVENUNK [place] Insurance:SELF PAY [facility] Number: Effective Repository Date:2018-02-07 01/26/2018 [place] Primary KWAME A Willits [id number] Insurance:MEDICARE WALTONDOB: Community [place] PART A BPolicy Number: [id number] [place], [place] [id number] Repository 64802Zbc: (234) Date:2008-04-22006 () 01/26/2018 Secondary KWAME A James Insurance:AARPPolicy WAL[place]DOB: Community Number: [id number] Hospital [id number] Repository Date:2291-41-22WB [address]BXNKOHW, [place] [address]YF: 01/26/2018 Tertiary NOT GIVENUNK [place] Insurance:SELF PAY [facility] Number: Effective Repository Date:2018-01-21 01/25/2018 KWAME A Primary KWAME A Willits [id number] Insurance:MEDICARE WALTONDOB: Community [place] PART A BPolicy Number: [id number] [id number] Repository [address]Iac: (431) Date:2017-12-282663 () 01/25/2018 Secondary KWAME A James Insurance:AARPPolicy WALTONDOB: Community Number: [id number] Hospital [id number] Repository Date:1824-06-76[address]DYAQQOB, [place] [address]QF: 01/25/2018 Tertiary NOT GIVENUNK James Insurance:SELF PAY [facility] Number: Effective Repository Date:2018-01-24 01/24/2018 [place] Primary KWAME A Willits [id number] Insurance:MEDICARE WALTONDOB: Community [place] PART A BPolicy Number: [id number] [place], [place] [id number] Repository 67[address]Qgj: (095) Date:2018-01-20495 () 01/24/2018 Secondary KWAME A James Insurance:AARPPolicy WALTONDOB: Community Number: [id number] Hospital [id number] Repository Date:2129-82-18ZB [address]KXTNRVP, [place] [address]DC: 01/24/2018 Tertiary NOT GIVENUNK James Insurance:SELF PAY Community [facility] Number: Effective Repository Date:2018-01-24 01/24/2018 [place] Primary KWAME A Willits [id number] Insurance:MEDICARE WALTONDOB: Community [place] PART A BPolicy Number: [id number] [place], [place] [id number] Repository 25357Zks: (070) Date:2018-01-20 [phone] () 01/24/2018 Secondary KWAME A Willits Insurance:AARPPolicy WAL[place]DOB: Community Number: [id number] Hospital [id number] Repository Date:9638-49-81[address]OAZYPCV, [place] [address]RE: 01/24/2018 Tertiary NOT GIVENUNK [place] Insurance:SELF PAY Community [facility] Number: Effective Repository Date:2018-01-20 12/29/2017 [place] Primary KWAME A James [id number] Insurance:MEDICARE WALTONDOB: Community [place] PART A BPolicy Number: [id number] Paul, [place] [id number] Repository 89590Wwi: (330) Date:2008-04-22 [phone] () 12/29/2017 Secondary KWAME A Willits Insurance:AARPPolicy WAL[place]DOB: Community Number: [id number] Hospital [id number] Repository Date:0163-79-10EW [address]MJNIAMC, [place] [address]YI: 12/29/2017 Tertiary NOT GIVENUNK James Insurance:SELF PAY Community [facility] Number: Effective Repository Date:2017-08-04 12/25/2017 [place] Primary KWAME A James [id number] Insurance:MEDICARE WALTONDOB: Community [place] PART A BPolicy Number: [id number] [place], [place] [id number] Repository 94018Hmq: (330) Date:2017-12-24 () 12/25/2017 Secondary KWAME A James Insurance:AARPPolicy WAL[place]DOB: Community Number: [id number] Hospital [id number] Repository Date:0064-08-57AF [address]TZUAP[place], [place] [address]GM: 12/25/2017 Tertiary NOT GIVENUNK James Insurance:SELF PAY Community [facility] Number: Effective Repository Date:2017-12-24 12/25/2017 [place] Primary KWAME A James [id number] Insurance:MEDICARE WALTONDOB: Community [place] PART A BPolicy Number: [id number] Paul, [place] [id number] Repository 07061Fpp: (330) Date:2017-12-24 () 12/25/2017 Secondary KWAME A Willits Insurance:AARPPolicy WALTONDOB: Community Number: [id number] Hospital [id number] Repository Date:8747-82-09UM [address]LHBUMUI, [place] [address]ZP: 12/25/2017 Tertiary NOT GIVENUNK [place] Insurance:SELF PAY [facility] Number: Effective Repository Date:2017-12-25 12/25/2017 [place] Primary KWAME A Willits [id number] Insurance:MEDICARE WALTONDOB: Community [place] PART A BPolicy Number: [id number] [place], [place] [id number] Repository 98946Ibs: (664) Date:2017-12-24313 () 12/25/2017 Secondary KWAME A James Insurance:AARPPolicy WALTONDOB: Community Number: [id number] Hospital [id number] Repository Date:9277-65-18FP [address]EYOBCHC, [place] [address]JT: 12/25/2017 Tertiary NOT GIVENUNK James Insurance:SELF PAY Community [facility] Number: Effective Repository Date:2017-12-25 12/25/2017 [place] Primary KWAME A James [id number] Insurance:MEDICARE WALTONDOB: Community [place] PART A BPolicy Number: [id number] Paul, [place] [id number] Repository 76061Jvp: (330) Date:2017-12-24 () 12/25/2017 Secondary KWAME A James Insurance:AARPPolicy WAL[place]DOB: Community Number: [id number] Hospital [id number] Repository Date:2033-83-36SH [facility] 421685BJVOKVY, [place] [address]XL: 12/25/2017 Tertiary NOT GIVENUNK [place] Insurance:SELF PAY [facility] Effective Repository Date:2017-12-24 12/25/2017 [place] Primary KWAME A Willits [id number] Insurance:MEDICARE WALTONDOB: Community [place] PART A BPolicy Number: [id number] [place], [place] [id number] Repository 26561Gnl: (308) Date:2017-12-24458 () 12/25/2017 Secondary KWAME A Willits Insurance:AARPPolicy W[place]DOB: Community Number: [id number] Hospital [id number] Repository Date:0101-33-03IM [address]CGJJUAX, [place] [address]CS: 12/25/2017 Tertiary NOT GIVENUNK [place] Insurance:SELF PAY [facility] Number: Effective Repository Date:2017-12-25 12/23/2017 [place] Primary KWAME A James [id number] Insurance:MEDICARE WALTONDOB: Community [place] PART A BPolicy Number: [id number] [place], [place] [id number] Repository 99853Ecj: (224) Date:2017-12-23185 () 12/23/2017 Secondary KWAME A James Insurance:AARPPolicy WAL[place]DOB: Community Number: [id number] Hospital [id number] Repository Date:0513-58-64SY [address]OTWBHRV, [place] [address]OZ: 12/23/2017 Tertiary NOT GIVENUNK James Insurance:SELF PAY [facility] Number: Effective Repository Date:2017-12-23 12/15/2017 [place] Primary KWAME A Willits [id number] Insurance:MEDICARE WALTONDOB: Community [place] PART A BPolicy Number: [id number] [place], [place] [id number] Repository 64441Mef: (330) Date:2017-12-15 [phone] () 12/15/2017 Secondary KWAME A Willits Insurance:AARPPolicy WAL[place]DOB: Community Number: [id number] Hospital [id number] Repository Date:6359-23-26SD [facility] 435449IEIHGCJ, [place] [address]UF: 12/15/2017 Tertiary NOT GIVENUNK James Insurance:SELF PAY [facility] Number: Effective Repository Date:2017-12-15 12/02/2017 [place] Primary KWAME A James [id number] Insurance:MEDICARE W[place]TONDOB: Community [place] PART A BPolicy Number: [id number], [place] [id number] Repository 22795Abz: (330) Date:2017-11-09 [phone] (HP) 12/02/2017 Secondary KWAME A Willits Insurance:AARPPolicy WALTONDOB: Community Number: [id number] Hospital [id number] Repository Date:6162-41-04UZ [facility] 854164TWGQPXR, [place] [address]BO: 12/02/2017 Tertiary NOT GIVENUNK [place] Insurance:SELF PAY [facility] Number: Effective Repository Date:2017-12-02 12/01/2017 [place] Primary KWAME A James [id number] Insurance:MEDICARE WALTONDOB: [place] PART A BPolicy Number: [id number], [place] [id number] Repository 201[address]Lxg: (330) Date:2017-12-01556 () 12/01/2017 Secondary KWAME A James Insurance:AARPPolicy WALTONDOB: Community Number: [id number] Hospital [id number] Repository Date:8773-21-15JE [address]QKXORBY, [place] [address]ZC: 12/01/2017 Tertiary NOT GIVENUNK James Insurance:SELF PAY [facility] Number: Effective Repository Date:2017-12-01 09/20/2017 [place] Primary KWAME A Willits [id number] Insurance:MEDICARE WALTONDOB: [place] PART A BPolicy Number: [id number], [place] [id number] Repository 549[address]Ppx: (330) Date:2017-09-16263 () 09/20/2017 Secondary KWAME A James Insurance:AARolicy WALTONDOB: Community Number: [id number] [facility] [id number] Repository Date:6769-47-67YZ [address]UPMYVNP, [place] [address]KV: 09/20/2017 Tertiary NOT GIVENUNK [place] Insurance:SELF PAY [facility] Number: Effective Repository Date:2017-09-16 09/20/2017 [place] Primary KWAME A James [id number] Insurance:MEDICARE W[place]TONDOB: [place] PART A BPolicy Number: [id number], [place] [id number] Repository 178[address]Vjv: (330) Date:2017-09-169504 () 09/20/2017 Secondary KWAME A [place] [facility] Number: [id number] Hospital [id number] Repository Date:5551-55-67HV [address]VXJISTA, [place] [address]IA: 09/20/2017 Tertiary NOT GIVENUNK [place] Insurance:SELF PAY [facility] Number: Effective Repository Date:2017-09-20 09/13/2017 [place] Primary KWAME A Willits [id number] Insurance:MEDICARE WALTONDOB: [place] PART A BPolicy Number: [id number], [place] [id number] Repository 709[address]Hpj: (330) Date:2017-09-13 () 09/13/2017 Secondary KWAME A Willits Insurance:AARPPolicy WALTONDOB: Community Number: [id number] Hospital [id number] Repository Date:8731-26-87YP [address]XBXSAJD, [place] [address]HY: 09/13/2017 Tertiary NOT GIVENUNK [place] Insurance:SELF PAY [facility] Number: Effective Repository Date:2017-09-13 07/30/2017 [place] Primary KWAME A Willits [id number] Insurance:MEDICARE WALTONDOB: [place] PART A BPolicy Number: [id number], [place] [id number] Repository 03220Cas: (330) Date:2017-07-30 () 07/30/2017 Secondary KWAME A James Insurance:AARPPolicy WALTONDOB: Community Number: [id number] Hospital [id number] Repository Date:8843-01-69CJ [address]YDIOQUT, [place] [address]HU: 07/30/2017 Tertiary NOT GIVENUNK James Insurance:SELF PAY [facility] Number: Effective Repository Date:2017-07-30 07/25/2017 [place] Primary KWAME A Willits [id number] Insurance:MEDICARE WALTONDOB: [place] PART A BPolicy Number: [id number], [place] [id number] Repository 13901Rdn: (330) Date:2017-07-25 () 07/25/2017 Secondary KWAME A James Insurance:AARPPolicy WALTONDOB: Community Number: [id number] Hospital [id number] Repository Date:3338-94-47[address]TDERYZV, [place] [address]IE: 07/25/2017 Tertiary NOT GIVENUNK James Insurance:SELF PAY Community [facility] Number: Effective Repository Date:2017-07-25 07/06/2017 [place] Primary KWAME A James [id number] Insurance:MEDICARE WALTONDOB: [place] PART A BPolicy Number: [id number], [place] [id number] Repository 97473Rbl: (411) Date:2017-07-05 (HP) 07/06/2017 Secondary KWAME A James Insurance:AARPPolicy WALTONDOB: Community Number: [id number] Hospital [id number] Repository Date:1431-45-08KX [address]NHXCGDY, [place] [address]YQ: 07/06/2017 Tertiary NOT GIVENUNK James Insurance:SELF PAY [facility] Number: Effective Repository Date:2017-07-05 06/28/2017 [place] Primary KWAME A James [id number] Insurance:MEDICARE WALTONDOB: [place] PART A BPolicy Number: [id number], [place] [id number] Repository 04227Kyp: (164) Date:2017-06-28 (HP) 06/28/2017 Secondary KWAME A James Insurance:AARPPolicy WALTONDOB: Community Number: [id number] Hospital [id number] Repository Date:3324-30-04MU [address]YMLHJBH, [place] [address]RG: 06/28/2017 Tertiary NOT GIVENUNK James Insurance:SELF PAY [facility] Number: Effective Repository Date:2017-06-28 06/17/2017 KWAME WALTONDOB: Primary KWAME WALTONDOB: [place] Insurance:MEDICARE A [id number] INVERNESS AND BPolicy Number: Repository [place], [place] [id number] [address]Jce: (330) Date: (HP) 06/17/2017 Secondary KWAME WALTONDOB: [place] [employer] Insurance:[facility] AARP [id number] SUPPLEMENTPolicy Repository Number: [id number] Date: 06/10/2017 [place] Primary KWAME A James [id number] Insurance:MEDICARE WALTONDOB: Community [place] PART A BPolicy Number: [id number], [place] [id number] Repository 84819Yzc: (330) Date:2017-06-10 [phone] () 06/10/2017 Secondary KWAME A James Insurance:AARPPolicy WALTONDOB: Community Number: [id number] Hospital [id number] Repository Date:0051-96-67SE [address]DTWGBXK, [place] [address]CS: 06/10/2017 Tertiary NOT GIVENUNK James Insurance:SELF PAY Community [facility] Number: Effective Repository Date:2017-06-10 05/19/2017 [place] Primary KWAME A James [id number] Insurance:MEDICARE WALTONDOB: Community [place] PART A BPolicy Number: [id number], [place] [id number] Repository 53788Pag: (402) Date:2017-05-19 [phone] () 05/19/2017 Secondary KWAME A [place] Insurance:AARPPolicy WALTONDOB: Community Number: [id number] Hospital [id number] Repository Date:6771-11-99AB [address]SEFXHSW, [place] [address]GL: 05/19/2017 Tertiary NOT GIVENUNK [place] Insurance:SELF PAY Community [facility] Number: Effective Repository Date:2017-05-19 04/28/2017 [place] Primary KWAME A Willits [id number] Insurance:MEDICARE WALTONDOB: Community [place] PART A BPolicy Number: [id number], [place] [id number] Repository 95[address]Jgp: (448) Date:2017-04-28 [phone] () 04/28/2017 Secondary KWAME A [place]its Insurance:AARPPolicy WALTONDOB: [facility] Number: [id number] Hospital [id number] Repository Date:1193-46-89QT [address]KHTLJJS, [place] [address]CY: 04/28/2017 Tertiary NOT GIVENUNK James Insurance:SELF PAY [facility] Number: Effective Repository Date:2017-04-28
== END ==
PROVIDERS: Family Provider Family Medicine; PCP Family Medicine; Referring Provider Surgery; Visit Provider Surgery
DX: I65.22 Occlusion and stenosis of left carotid artery (principal)
CPT/HCPCS: 93880

== ENCOUNTER → 2018-02-07 13:17 | Day surgery (SDC) | payer MEDICARE, OTHER, SELFPAY ==
[2018-01-25 12:54] VITALS: BMI 34.2
[2018-02-02 08:19] VITALS: BP 160/82; PULSE 87; RESP 18; TEMP 37.1; O2SAT 96; BMI 34.4
--- NOTE | 2018-02-02 08:46 | SDCEKG_ITS ---
Test Reason : Blood Pressure : / mmHG Vent. Rate : 085 BPM Atrial Rate : 085 BPM P-R Int : 148 ms QRS Dur : 100 ms QT Int : 334 ms P-R-T Axes : 016 -45 085 degrees QTc Int : 397 ms Normal sinus rhythm Incomplete right bundle branch block Left anterior fascicular block Voltage criteria for left ventricular hypertrophy Nonspecific ST and T wave abnormality Abnormal ECG Confirmed by ALISA RUIZ, SHAKIRA ([id number]), editor news MAYURI CADE ([id number]) on 02/04/2018 9:57:57 AM Referred By: Shahbaz Young Confirmed By:SHAKIRA CUELLAR MD
[2018-02-02 09:36] LABS: Hematocrit 39.2 % (37-47); Hemoglobin 13.5 g/dl (12.0-15.0); Mean Corp Hgb Conc 34.4 g/gl (32-36); Mean Corpuscular Volume 92.9 fL (81-99); Mean Platelet Vol. 11.3 fl (6.2-12.0); Platelet Count 173 K/mm3 (150-450); RBC Distribution Width CV 12.8 % (11.6-14.6); RBC Distribution Width SD 42.5 fl (35.1-43.9); Red Blood Count 4.22 M/mm3 (4.2-5.4); Scan Indicated on CBC? Y/N NO
[2018-02-02 10:01] LABS: Anion Gap 11 (5-15); BUN 14 mg/dL (7-18); BUN/Creat Ratio 13.1 RATIO (10-20); Calcium,Total 8.9 mg/dL (8.5-10.1); Chloride 105 mmol/L (98-107); Creatinine, Serum 1.07 mg/dL (0.55-1.02); EST Glomerular Filtration Rate 53 mL/min (>60); Est Glom Filt Rate - Afr Amer 64 mL/min (>60); Estimated Creatinine Clearance 33.13 ml/min; Glucose 146 mg/dL (74-106); Potassium 3.9 mmol/L (3.5-5.1); Sodium Level 145 mmol/L (136-145)
[2018-02-07 06:04] VITALS: BP 193/72; PULSE 65; RESP 16; TEMP 37.2; O2SAT 97; BMI 34.4
[2018-02-07 06:51] LABS: Bedside Glucose 128 mg/dL (70-110)
--- NOTE | 2018-02-07 07:42 | OP.PCM_ITS ---
Problem List (1) Carotid stenosis, left Status: Chronic Report of Operation Date of Procedure: 02/07/18 Pre-Operative Diagnosis: Symptomatic stenosis left extracranial internal carotid Post-Operative Diagnosis: Symptomatic stenosis left extra cranial internal carotid. Malignant hypertension Surgery/Procedure Performed:: Right brachial arterial line placement. Aborted carotid endarterectomy secondary to severe hypertension Description of Surgical Findings:: Timeout and informed consent was obtained. At the bedside patient was noted to have a left wrist fracture and so no attempt was Artline at that place. The right radial pulse was diminutive. The I did prep the right wrist looked with ultrasound use 1% lidocaine total I attempted to attempts at gaining access to the right radial artery with a Angiocath. I was not able to get some major wire advancement. That site was aborted. I then was able to prep the right antecubital space. With ultrasound would identify the right brachial artery. Again 1% lidocaine was instilled and an Arrow kit Angiocath was inserted and advanced and a 20-gauge aero kit Angiocath was inserted. Was secured to skin with 3-0 silk OpSite dressing was applied was applied to a pressure bag. Waveform was obtained. The patient had been quite anxious throughout this procedure blood pressure was rather elevated. She was subsequently taken to the operating room after approximately 45 minutes rest however blood pressure remains markedly elevated at 260 over greater than 100. Dr[address] Glenn Keene recommended cancellation of the procedure with r ecommendations for medical maximization of her care. She will be rescheduled once her blood pressure is more tightly controlled. Shahbaz Young M.D., F.A.C.S.
[2018-02-07 07:46] VITALS: BP 193/72; BP 225/70; PULSE 74; RESP 16; TEMP 36.1; O2SAT 100
[2018-02-07 07:50] VITALS: BP 193/72; BP 217/76; PULSE 74; RESP 16; O2SAT 96
[2018-02-07 07:55] VITALS: BP 193/72; BP 217/76; PULSE 71; RESP 16; O2SAT 96
[2018-02-07 08:00] VITALS: BP 193/72; BP 199/68; PULSE 70; RESP 16; TEMP 36.2; O2SAT 98
[2018-02-07 08:44] VITALS: BP 193/72
--- OUTSIDE RECORDS SUMMARY | 2018-05-11 16:17 | XMS RPT_ITS ---
:1945 Author Organization OHIP Support Name Relationship Address Phone R Unavailable Unavailable Unavailable ALTURAS, UTAH Unavailable [address] + [place] [address] R Unavailable Unavailable [place], [place] Unavailable [address] + [place] [address] R Unavailable Unavailable [place], [place] Unavailable [address] + [place] [address] R Unavailable Unavailable [place], [place] Unavailable [address] + [place] [address] R Unavailable Unavailable [place], [place] Unavailable [address] + [place] [address] R Unavailable Unavailable [place], [place] Unavailable [address] + [place] [address] R Unavailable Unavailable [place], [place] Unavailable [address] + [place] [address] R Unavailable Unavailable [place], [place] Unavailable [address] + [place] [address] R Unavailable Unavailable [place], [place] Unavailable [address] + [place] [address] R Unavailable Unavailable [place], [place] Unavailable [address] + [place] [address] R Unavailable Unavailable [place], [place] Unavailable [address] + [place] [address] R Unavailable Unavailable [place], [place] Unavailable [address] + [place] [address] R Unavailable Unavailable [place], [place] Unavailable [address] + [place] [address] R Unavailable Unavailable Unavailable ALTURAS, UTAH Unavailable [address] + [place] [address] R Unavailable Unavailable [place], [place] Unavailable [address] + [place] [address] R Unavailable Unavailable [place], [place] Unavailable [address] + [place] [address] R Unavailable Unavailable [place], [place] Unavailable [address] + [place] [address] R Unavailable Unavailable [place], [place] Unavailable [address] + [place] [address] R Unavailable Unavailable [place], [place] Unavailable [address] + [place] [address] R Unavailable Unavailable [place], [place] Unavailable [address] + [place] [address] R Unavailable Unavailable [place], [place] Unavailable [address] + [place] [address] R Unavailable Unavailable [place], [place] Unavailable [address] + [place] [address] R Unavailable Unavailable [place], [place] Unavailable [address] + [place] [address] R Unavailable Unavailable [place], [place] Unavailable [address] + [place] [address] R Unavailable Unavailable [place], [place] Unavailable [address] + [place] [address] R Unavailable Unavailable [place], [place] Unavailable [address] + [place] [address] R Unavailable Unavailable [place], [place] Unavailable [address] + [place] [address] R Unavailable Unavailable [place], [place] Unavailable [address] + [place] [address] Care Team Providers Name Role Phone Shahbaz Young Attending Unavailable Zbigniew, Twan Primary Care Unavailable Dash Arzate Attending Unavailable Shahbaz Young Attending Unavailable Shahbaz Young Referring Unavailable Zbigniew, Twan Primary Care Unavailable Twan Coy Attending Unavailable Zbigniew Twan Primary Care Unavailable Shahbaz Young Attending Unavailable Zbigniew Twan Referring Unavailable Shahbaz Young Attending Unavailable Shahbaz Young Referring Unavailable Zbigniew, Twan Primary Care Unavailable Cebul, Shahbaz Consulting Unavailable Cebul, Shahbaz Attending Unavailable Cebul, Shahbaz Referring Unavailable Zbigniew, Twan Primary Care Unavailable Manuel Verduzco Attending Unavailable Agyepong, Manoj Referring Unavailable Agyepong, Manoj Admitting Unavailable Maurizio Lozano Attending Unavailable Zibgniew, Twan Primary Care Unavailable Sanaz, Cassandra S. Consulting Unavailable Maurizio Lozano Consulting Unavailable Agyepong, Manoj Admitting Unavailable Agyepong, Manoj Attending Unavailable Zbigniew, Twan Primary Care Unavailable Sanaz, Cassandra S. Consulting Unavailable Agyepong, Manoj Consulting Unavailable Zbigniew, Twan Primary Care Unavailable Agyepong, Manoj Admitting Unavailable Sanaz, Cassandra S. Consulting Unavailable Maurizio Lozano Attending Unavailable Arianne, Jayaprakash Attending Unavailable Arianne, Jayaprakash Referring Unavailable Zbigniew, Twan Primary Care Unavailable Kala Santacruz Attending Unavailable Scott De La Rosa Attending Unavailable Regan, Gaston Referring Unavailable Gaston Spears Attending Unavailable Regan, Gaston Referring Unavailable Zbigniew, Twan Primary Care Unavailable Zbigniew, Twan Primary Care Unavailable Ted Yang Attending Unavailable Madhav Saba Attending Unavailable Bavis, Madhav Referring Unavailable Zbigniew, Twan Primary Care Unavailable Madhav Saba Attending Unavailable Bavis, Madhav Referring Unavailable Zbigniew, Twan Primary Care Unavailable AL STEIN Attending Unavailable AL STEIN Referring Unavailable Zbigniew, Twan Primary Care Unavailable Arianne, Jayaprakash Attending Unavailable Arianne, Jayaprakash Referring Unavailable Zbigniew, Twan Primary Care Unavailable Arianne, Jayaprakash Attending Unavailable Arianne, Jayaprakash Referring Unavailable Zbigniew, Twan Primary Care Unavailable AL STEIN Consulting Unavailable Arianne, Jayaprakash Attending Unavailable Arianne, Jayaprakash Referring Unavailable Zbigniew, Twan Primary Care Unavailable Frannie Mosley PA-C Attending Unavailable Zbigniew, Twan Referring Unavailable Manuel Verduzco Attending Unavailable Bettinabul, Shahbaz Referring Unavailable Zbigniew, Twan Attending Unavailable Zbigniew, Twan Referring Unavailable Zbigniew, Twan Primary Care Unavailable Agyepong, Manoj Admitting Unavailable Maurizio Lozano Attending Unavailable Zbigniew, Twan Primary Care Unavailable Sanaz, Cassandra S. Consulting Unavailable Maurizio Lozano Consulting Unavailable Zbigniew, Twan Primary Care Unavailable Bolivar Chaudhari Attending Unavailable Scott De La Rosa Attending Unavailable Twan Coy Referring Unavailable KALLIE DEY Referring Unavailable KALLIE DEY Referring Unavailable IMCA Primary Care Unavailable PROBLEMS PROBLEMS DATE TYPE CONDITION / CODE ATTENDING STATUS SOURCE Unknown I65.23 - Occlusion and BettinaShahbaz callejas Active [place] 9 stenosis of bilateral [facility] carotid arteries / Hospital I65.23(ICD-10) Repository Unknown R94.31 - Abnormal Dax, Manuel Active [place] 8 electrocardiogram [ECG] Community [EKG] / R94.31(ICD-10) Hospital Repository Unknown I10 - Essential Dax, Manuel Active [place] 8 (primary) hypertension Community / I10(ICD-10) Hospital Repository Unknown I25.10 - Dax, Wesco Active [place] 8 Atherosclerotic heart Community disease of [place] Hospital coronary artery without Repository angina pectoris / I25.10(ICD-10) Unknown Z95.5 - Presence of Dax, Wesco Active [place] 8 coronary angioplasty Community implant and graft / Hospital Z95.5(ICD-10) Repository Unknown I65.22 - Occlusion and HectorShahbaz Active [place] 8 stenosis of left [facility] carotid artery / Hospital I65.22(ICD-10) Repository Unknown G62.9 - Polyneuropathy, Jerryabdifatah Madhav Active [place] unspecified / Community G62.9(ICD-10) Hospital Repository Unknown R26.89 - Other Madhav Saba Active [place] 8 abnormalities of gait Community and mobility / Hospital R26.89(ICD-10) Repository Unknown N18.3 - Chronic kidney Arianne, Active [place] 8 disease, stage 3 [facility] (moderate) / Hospital N18.3(ICD-10) Repository Unknown D63.1 - Anemia in Arianne, Active [place] 8 chronic kidney disease [facility] / D63.1(ICD-10) Hospital Repository Unknown N25.81 - Secondary Arianne, Active [place] 8 hyperparathyroidism of [facility] renal origin / Hospital N25.81(ICD-10) Repository Unknown R51 - Headache / Fara, Bolivar Active [place] 8 R51(ICD-10) [facility] Hospital Repository Unknown S52.509A - Unspecified Ted Yang Active [place] 8 fracture of the lower Community end of unspecified Hospital radius, initial Repository encounter for closed fracture / S52.509A(ICD-10) Unknown 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, Community unspecified / Hospital D32.9(ICD-10) Repository Active 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, unspecified / Clinic Other D32.9(ICD-10) [place] Repository Admitting Unknown / UNK(Unknown) Active [facility] 8 diagnosis Health System Repository Unknown R60.9 - Edema, Twan Coy [facility] 8 unspecified / Community R60.9(ICD-10) Hospital Repository Unknown E03.9 - Hypothyroidism, Twan Coy [facility] 8 unspecified / Community E03.9(ICD-10) Hospital Repository PROCEDURES PROCEDURES No Procedure Records FoundRESULTS RESULTS OPERATIVE REPORT Observed: 02/07/2018 Status: F Source: [place] 5:29 PM [facility] REPOSITORY [facility] Medical Records Department [address] [place] [address] Operative Report 02/07/18 0739 MR#: [id number] Acct: [id number] Name: KWAME WEBBER Rep #: [id number] : 1945 72 From: Shahbaz Young MD PCP: Twan Coy MD Status: [facility] Y [place] [facility] [place] List (1) Carotid stenosis, left Status: [...] [address] than [address] Glenn Keene recommended cancellation of the procedure with recommendations for medical maximization of her care. She will be rescheduled once her blood pressure is more tightly controlled. Shahbaz Young M.D., F.A.C.S. 02/07/18 1729 <Electronically signed by Shahbaz Young MD> Date Shahbaz Young MD CC: Shahbaz Young MD; Twan Coy MD Signed BEDSIDE GLUCOSE Collected: 02/07/2018 Status: F Source: [place] 5:56 AM [facility] REPOSITORY TYPE CODE TESTS RESULT OUT OF REFERENCE UNITS RANGE LAB L501.080 70-110 mg/dL High BEDSIDE GLU 128 Result Comment: MANAGEMENT OF PATIENT CARE PER NURSING PROTOCOL Performed By: #### L501.080 #### [facility] Point of Care [address] [place] [address] 12 LEAD ELECTROCARDIOGRAM Observed: 02/04/2018 Status: F Source: [place] 9:58 AM [facility] REPOSITORY [facility] Cardiovascular Services [address] [place] [address] EKG - MIC 02/02/18 0844 MR#: [id number] Acct: [id number] Name: KWAME WEBBER Rep #: [id number] : 1945 72 From: Manuel Verduzco MD Attending Dr: Shahbaz Young MD Status: PRE IN Ordering Dr: Shahbaz Young MD Date: 02/02/18 [place] [facility] [place] Sex: F C Admitted: Test Reason : [...] ECG Confirmed by DAX RUIZ, MANUEL ([id number]), loan expeditor MAYURI BLOUNT ([id number]) on 02/04/2018 9:57:57 AM Referred By: Shahbaz Young Confirmed By:MANUEL VERDUZCO MD 02/04/1858 Date Manuel Verduzco MD CC: Shahbaz Young MD; Twan Coy MD Date Dictated: 02/02/18843 Date Transcribed: 02/02/18843 Community Organizer: Signed CBC-COMPLETE BLOOD CNT Collected: 02/02/2018 Status: F Source: [place] NO DIFF 8:51 AM [facility] REPOSITORY TYPE CODE TESTS RESULT OUT OF [...] MPV 11.3 Performed By: #### L100.0500 #### [facility] [address] [place], [address] BASIC METABOLIC Collected: 02/02/2018 Status: F Source: [place] PROFILE (BMP) 8:51 AM [facility] REPOSITORY TYPE CODE TESTS RESULT OUT OF [...] GAP 11 Performed By: #### L500.2500 #### [facility] [address] [place], [address] SURGERY VISIT REPORT Observed: 01/25/2018 Status: F Source: [place] 4:20 PM [facility] REPOSITORY [facility] 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 Patient is referred by the [facility] hospitalist service as well as her primary care physician Dr. Twan Coy and a written copy of my surgical consult will be returned to him. She was admitted to the [facility] December 24 - December 26, 2017. [...] the left cavernous carotid without luminal narrowing. [place] otherwise normal. She also had [...] coronary stenting approximately the year 1999. 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 Scott De La Rosa. [...] G45.9 01/25/18 1620 <Electronically signed by Shahbaz Young MD> Date Shahbaz Young MD Cosigner Signature: Date (if applicable) CC: Twan Coy MD OT D/C OF NON Observed: 01/24/2018 Status: F Source: [facility] PT 6:51 PM [facility] REPOSITORY [facility] Occupational Therapy [facility] [address] [place] [address]. [address] [place] [address] Fax REHABILITATION SERVICES DISCHARGE SUMMARY MR#: [id number] Acct: [id number] Name: KWAME WEBBER Rep #: [id number] : 1945 72 From: Kala Negron OTR/L, T Referring Dr.: Madhav Saba MD Status: REG [...] ROM: 65/45 and L wrist ROM: 53/53 towel stretcher strength L 15 # and R 45 [...] CAROTID DUPLEX Observed: 01/24/2018 Status: F Source: [place] ULTRASOUND 5:18 PM [facility] REPOSITORY [facility] Cardiovascular Services [address] [place] [address] [place] [address] Carotid Duplex Ultrasound 01/24/18 1007 MR#: [id number] Acct: [id number] Name: KWAME WEBBER Rep #: [id number] : 1945 72 From: Shahbaz Young MD [...] the left vertebral artery. Procedure Carotid Duplex 35383. Exam performed in department. Interpretation Summary Post [...] Date Dictated: 01/24/18 1007 Date Transcribed: 01/24/181716 Community Organizer: Signed CONSULTATION Observed: 01/07/2018 Status: F Source: [place] 4:00 PM [facility] REPOSITORY [facility] Medical Records Department [address] [place] [address] Consultation 12/25/17 1549 MR#: [id number] Acct: [id number] Name: KWAME WEBBER Rep #: [id number] : 1945 72 From: Cassandra Yo MD PCP: Twan Coy MD Status: DIS IN Y Location: [place] [address] Problem List (1) TIA (transient ischemic attack) [...] the LAD 1999 Atherosclerotic heart disease of [place] coronary artery without angina pectoris (Chronic) Hyperlipemia [...] the LAD 1999 Atherosclerotic heart disease of [place] coronary artery without angina pectoris (Chronic) I25.10 [...] -CTA head/neck- Left ICA 70-80% stenosis -LDL-57, Idp7s-0.1% -TTE-EF-60%, normal LA size -Recommend Vascular surgery [...] management Code Visit Inpatient E AND M: 48861 Init Hosp L3 01/07/18 1600 <Electronically signed by Cassandra Yo MD> Date Cassandra Yo MD Cosigner Signature (if applicable): Date CC: Aurora Yo MD; Twan Coy MD Signed 12 LEAD ELECTROCARDIOGRAM Observed: 12/30/2017 Status: F Source: [place] 4:08 PM [facility] REPOSITORY [facility] Cardiovascular Services [address] [place] [address] 12 Lead EKG 12/25/17 0632 MR#: [id number] Acct: [id number] Name: KWAME WEBBER Rep #: [id number] : 1945 72 From: Manuel Verduzco MD Attending Dr: Maurizio Lozano DO Status: DIS IN Ordering Dr: Maurizio Lozano DO Date: 12/25/17 Location: [facility] Sex: F C Admitted: 12/25/17 Test Reason [...] ECG Confirmed by MANUEL VERDUZCO MD ([id number]), loan expeditor MAYURI BLOUNT (56) on 12/30/2017 4:07:48 PM Referred By: Kayleigh South Confirmed By:MANUEL VERDUZCO MD 12/30/17 1607 Date Manuel Verduzco MD CC: Maurizio Lozano DO; Twan Coy MD Signed 12 LEAD ELECTROCARDIOGRAM Observed: 12/30/2017 Status: F Source: [place] 4:07 PM [facility]OSPITAL REPOSITORY [facility] Cardiovascular Services [address] [place] [address] 12 Lead EKG 12/25/17 1655 MR#: [id number] Acct: [id number] Name: KWAME WEBBER Rep #: [id number] : 1945 72 From: Manuel Verduzco MD [...] UNCONFIRMED Confirmed by MANUEL VERDUZCO MD ([id number]), loan expeditor MAYURI BLOUNT (56) on 12/30/2017 4:07:11 PM Referred By: Kayleigh South Confirmed By:MANUEL VERDUZCO MD 12/30/17 1607 Date Manuel Verduzco MD CC: Maurizio Lozano DO; Manoj Deluna MD; Twan Coy MD Signed 12 LEAD ELECTROCARDIOGRAM Observed: 12/27/2017 Status: F Source: [place] 3:20 PM [facility] REPOSITORY [facility] Cardiovascular Services [address] [place] [address] 12 Lead EKG 12/24/17 2131 MR#: [id number] Acct: [id number] Name: KWAME WEBBER Rep #: [id number] : 1945 72 From: Manuel Verduzco MD Attending Dr: Maurizio Lozano DO Status: DIS IN Ordering Dr: Ana Bender MD Date: 12/24/17 Location: U Sex: F C Admitted: 12/25/17 [...] ECG Confirmed by MANUEL VERDUZCO MD ([id number]), loan expeditor MAYURI BLOUNT (56) on 12/27/2017 3:19:53 PM Referred By: Kayleigh South Confirmed By:MANUEL VERDUZCO MD 12/27/17 1519 Date Manuel Verduzco MD CC: Ana Bender MD; Maurizio Lozano DO; Twan Coy MD Signed DISCHARGE SUMMARY Observed: 12/26/2017 Status: F Source: [place] 10:45 AM [facility] REPOSITORY [facility] Medical Records Department [address] [place] [address] Discharge Summary 12/26/17 1039 MR#: [id number] Acct: [id number] Name: KWAME WEBBER Rep #: [id number] : 1945 72 From: Maurizio Lozano DO PCP: Twan Coy MD Status: ADM IN Y Location: [place] [address] Discharge Date and Diagnosis - Problem List [...] the LAD 1999 Atherosclerotic heart disease of [place] coronary artery without angina pectoris (Chronic) Hyperlipemia (Chronic) Hypothyroidism (Chronic) Hospital Course and Treatment Imaging Results: Clinical Impression(s) from Imaging Studies Head CTA 12/24/17 21:44 IMPRESSION: Normal [place] without a demonstrated aneurysm or hemodynamically significant stenosis. Electronically Signed: Juan Ang DO at 23:25 EDT Tel [phone], Service support , Neck CTA 12/24/17 21:44 IMPRESSION: 1. Question 70-80% stenosis of the left carotid bulb. 2. Minimal atherosclerotic changes of the distal right common carotid artery without stenosis. 3. No other evidence of vascular abnormality. Electronically Signed: Juan Ang DO at 23:34 EDT Tel [phone], Service support , Chest X-Ray 12/24/17 22:08 [...] Indicated Code Visit Inpatient E AND M: 03888 Disch Hosp 12/26/17 1045 <Electronically signed by Maurizio Lozano DO> Date Maurizio Lozano DO Cosigner Signature (if applicable): Date CC: Maurizio Lozano DO; Twan Coy MD Signed DISCHARGE INSTRUCTION Observed: 12/26/2017 Status: F Source: [place] 10:39 AM [facility] REPOSITORY [facility] Medical Records Department [address] [place] [address] Instructions for Home/Discharge Instructions 12/26/17 1035 MR#: [id number] Acct: [id number] Name: KWAME WEBBER Rep #: [id number] : 1945 72 From: Maurizio Lozano DO [...] 12/26/2017 Status: F Source: [place] 6:44 AM [facility] REPOSITORY TYPE CODE TESTS RESULT OUT OF REFERENCE UNITS RANGE LAB L501.080 70-110 mg/dL High BEDSIDE GLU 124 Result Comment: MANAGEMENT OF PATIENT CARE PER NURSING PROTOCOL Performed By: #### L501.080 #### [facility] Point of Care [address] [place] [address] BEDSIDE GLUCOSE Collected: 12/25/2017 Status: F Source: [place] 11:47 PM [facility] REPOSITORY TYPE CODE TESTS RESULT OUT OF REFERENCE UNITS RANGE LAB L501.080 70-110 mg/dL High BEDSIDE GLU 138 Result Comment: MANAGEMENT OF PATIENT CARE PER NURSING PROTOCOL Performed By: #### L501.080 #### [facility] Point of Care [address] [place] [address] BEDSIDE GLUCOSE Collected: 12/25/2017 Status: F Source: [place] 9:00 PM [facility] REPOSITORY TYPE CODE TESTS RESULT OUT OF RANGE REFERENCE UNITS LAB L501.080 70-110 mg/dL Normal BEDSIDE GLU 86 Result Comment: MANAGEMENT OF PATIENT CARE PER NURSING PROTOCOL Performed By: #### L501.080 #### [facility] Point of Care [address] [place] [address] HISTORY AND PHYSICAL Observed: 12/25/2017 Status: F Source: [place] 5:40 PM [facility] REPOSITORY [facility] Medical Records Department [address] [place] [address] History and Physical 12/24/17 2353 MR#: [id number] Acct: [id number] Name: KWAME WEBBER Rep #: [id number] : 1945 72 From: Manoj Deluna MD PCP: Twan Coy MD Status: ADM IN Location: [place] [address] ADDENDUM by Manoj Deluna MD on 12/25/17 at 1740 Code Visit Reviewed impression of neck CTA: Normal left common carotid artery (CCA). There is marked calcifications in the left carotid bulb with estimated greater than 70% stenosis. 12/25/17 1740 <Electronically signed by Manoj Deluna MD> Date Manoj Deluna MD cc: Manoj Deluna MD; Twan Cyo MD * Signed Problem List (1) Stroke-like [...] the LAD 1999 Atherosclerotic heart disease of [place] coronary artery without angina pectoris (Chronic) Hyperlipemia [...] the LAD 1999 Atherosclerotic heart disease of [place] coronary artery without angina pectoris (Chronic) I25.10 [...] (Auto) Neut % (Auto) Lymph % (Auto) [place] % (Auto) POC Glucose POC Glucose 97 [...] . Code Visit OBSV E AND M: 69488 Initial observation care L3 12/25/17 0643 <Electronically signed by Manoj Deluna MD> Date Manoj Deluna MD Cosigner Signature: Date (if applicable) CC: Manoj Deluna MD; Twan Coy MD Signed BEDSIDE GLUCOSE Collected: 12/25/2017 Status: F Source: [place] 4:29 PM [facility] REPOSITORY TYPE CODE TESTS RESULT OUT OF REFERENCE UNITS RANGE LAB L501.080 70-110 mg/dL High BEDSIDE GLU 141 Result Comment: MANAGEMENT OF PATIENT CARE PER NURSING PROTOCOL Performed By: #### L501.080 #### [facility] Point of Care [address] [place] [address] BEDSIDE GLUCOSE Collected: 12/25/2017 Status: F Source: [place] 12:04 PM [facility] REPOSITORY TYPE CODE TESTS RESULT OUT OF REFERENCE UNITS RANGE LAB L501.080 70-110 mg/dL High BEDSIDE GLU 276 Result Comment: MANAGEMENT OF PATIENT CARE PER NURSING PROTOCOL Performed By: #### L501.080 #### [facility] Point of Care [address] [place] [address] ECHOCARDIOGRAM COMPLETE Observed: 12/25/2017 Status: F Source: [place] 11:38 AM [facility] REPOSITORY [facility] Cardiovascular Services [address] [place] [address] Echo Complete 12/25/17 0710 MR#: [id number] Acct: [id number] Name: KWAME WEBBER Rep #: [id number] : 1945 72 From: Manuel Verduzco MD Attending Dr: Maurizio Lozano DO Status: ADM YAIR Ordering Dr: Manoj Deluna MD Date: 12/25/17 Location: [place] Sex: F C Admitted: 12/25/17 Reason For [...] Twan Coy Performed By: Jorge Sheriff RCS 12/25/171136 Date Manuel Verduzco MD CC: Maurizio Lozano DO; Manoj Deluna MD; Twan Coy MD Date Dictated: 12/25/1710 Date Transcribed: 11/03/18 1137 Community Organizer: Signed BEDSIDE GLUCOSE Collected: 12/25/2017 Status: F Source: [place] 7:06 AM [facility] REPOSITORY TYPE CODE TESTS RESULT OUT OF REFERENCE UNITS RANGE LAB L501.080 70-110 mg/dL High BEDSIDE GLU 167 Result Comment: MANAGEMENT OF PATIENT CARE PER NURSING PROTOCOL Performed By: #### L501.080 #### [facility] Point of Care [address] [place] [address] LIPID PROFILE Collected: 12/25/2017 Status: F Source: [place] 6:00 AM [facility] REPOSITORY TYPE CODE TESTS RESULT OUT OF [...] VLDL 33 Performed By: #### L500.4100 #### [facility] [address] [place], [address] BRAIN WITHOUT Observed: 12/25/2017 Status: F Source: [place] CONTRAST 12:41 AM [facility] REPOSITORY [facility] Imaging Services [address] [place] [address] Brain without Contrast MR#: [id number] Acct: [id number] Name: KWAME WEBBER Rep #: [id number] : 1945 F 72 From: Domenic Padilla PCP: Twan Coy MD Status: ADM YAIR Study: Brain without Contrast Date of Exam: 12/25/17 Exam# [id number] Ordering Dr: Manoj Deluna MD STUDY: MRI [...] CC: Manoj Deluna MD; Twan Coy MD Community Organizer: Signed EMERGENCY DEPARTMENT Observed: 12/24/2017 Status: F Source: [place] SUMMARY 11:45 PM [facility] REPOSITORY [facility] Medical Records Department [address] [place] [address] Emergency Department Summary 12/24/17 2148 MR#: [id number] Acct: [id number] Name: KWAME WEBBER Rep #: [id number] : 1945 72 From: Ana Bender MD PCP: Twan Cyo MD Status: REG ER - ER Visit [...] speaking at that time. She was given [place] for home. She states this helped but [...] unremarkable. Troponin 0.034. CTA head shows normal [place] without a demonstrated aneurysm or [...] Expressive aphasia This note was generated with Apptio dictation software. It may contain incorrect words, [...] problems, contact your Primary Care Provider. Call [facility] ([phone]) or report to the closest Emergency Room. Call 911 if necessary. 12/24/17 0345 <Electronically signed by Ana Bender MD> Date Ana Bender MD Cosigner Signature (If Indicated): Date CC: Twan Coy MD URINALYSIS, COMPLETE Collected: 12/24/2017 Status: F Source: [place] 10:21 PM [facility] REPOSITORY Order Comment: Order Date: 12/24/17 Has [...] 5-10 SEEN Performed By: #### L400.0001 #### [facility] [address] [place], [address] CTA HEAD W/WO Observed: 12/24/2017 Status: F Source: [place] CONTRAST 9:44 PM [facility] REPOSIT[facility] Imaging Services [address] [place] [address] CTA Head W/WO Contrast MR#: [id number] Acct: [id number] Name: KWAME WEBBER Rep #: [id number] : 1945 F 72 From: Juan Ang DO PCP: Twan Coy MD Status: REG ER Study: CTA Head W/WO Contrast Date of Exam: 12/24/17 Exam# [id number] Ordering Dr: Ana Bender MD STUDY: CTA [...] There is no demonstrated aneurysm of the [place]. There is no demonstrated abnormality of the visualized brain. CT/CTA Head W/WO Contrast IMPRESSION: Normal [place] without a demonstrated aneurysm or hemodynamically significant stenosis. Electronically Signed: Juan Ang DO at 23:25 EDT Tel [phone], Service support , CC: Ana Bender MD; Twan Coy MD Community Organizer: Signed CTA NECK W/WO Observed: 12/24/2017 Status: F Source: [place] CONTRAST 9:44 PM [facility] REPOSIT[facility] Imaging Services [address] [place] [address] CTA Neck W/WO Contrast MR#: [id number] Acct: [id number] Name: KWAME WEBBER Rep #: [id number] : 1945 F 72 From: Juan Ang DO PCP: Twan Coy MD Status: REG ER Study: CTA Neck W/WO Contrast Date of Exam: 12/24/17 Exam# [id number] Ordering Dr: Ana Bender MD STUDY: CTA [...] Juan Ang DO at 23:34 EDT Tel [phone], Service support , CC: Ana Bender MD; Twan Coy MD Community Organizer: Signed CBC W/DIFF, AUTOMATED Collected: 12/24/2017 Status: F Source: [place] 9:42 PM [facility] REPOSITORY TYPE CODE TESTS RESULT OUT OF [...] Lymph 2.10 Performed By: #### L100.0100 #### [facility] [address] [place], [address] PROTHROMBIN TIME W/INR Collected: 12/24/2017 Status: F Source: [place] 9:42 PM [facility] REPOS[facility]ORY TYPE CODE TESTS RESULT OUT OF RANGE REFERENCE UNITS LAB L300.4150 11.7-14.9 SECONDS Normal PROTIME 12.6 LAB L300.4200 Normal INR 0.9 Performed By: #### L300.3900, L300.4310 #### [facility] [address] [place], [place], [address] PARTIAL THROMBOPLAST Collected: 12/24/2017 Status: F Source: [place] TIME 9:42 PM [facility] REPOS[facility]ORY TYPE CODE TESTS RESULT OUT OF RANGE REFERENCE UNITS LAB L300.4310 24.1-36.2 Seconds Normal PTT 24.7 Performed By: #### L300.3900, L300.4310 #### [facility] [address] [place], [place], [address] BASIC METABOLIC Collected: 12/24/2017 Status: F Source: [place] PROFILE (BMP) 9:42 PM [facility] REPOS[facility]ORY TYPE CODE TESTS RESULT OUT OF [...] 7 Performed By: #### L500.2500, L501.4010 #### [facility] [address] [place], [place], [address] TROPONIN-I Collected: 12/24/2017 Status: F Source: [place] 9:42 PM [facility] REPOS[facility]ORY TYPE CODE TESTS RESULT OUT OF RANGE REFERENCE UNITS LAB L501.4010 <0.045 ng/mL Normal 0.034 TROPONIN-I Result Comment: TROPONIN-I EXPECTED VALUES <0.045 Negative 0.045 - 0.590 Consistent with Cardiac Damage > OR = 0.600 Critical Value Not every elevated troponin is indicative of [place]. These values should be used with clinical judgement in examining the patient's clinical picture for diagnosis. To establish a diagnosis of [place] versus myocardial injury, there must be a demonstrated rise and/or fall in the troponin values, in addition to ischemic symptoms, EKG changes, new regional wall motion abnormality, and/or angiographical evidence. PLEASE NOTE: REFERENCE RANGES EDITED 17 Performed By: #### L500.2500, L501.4010 #### [facility] [address] [place], [address] ERYTHROCYTE SED RATE Collected: 12/24/2017 Status: F Source: [place] 9:42 PM [facility] REPOS[facility] TYPE CODE TESTS RESULT OUT OF RANGE REFERENCE UNITS LAB L102.0000 0-30 mm/hr Normal SED RATE 14 Performed By: #### L101.9900 #### [facility] [address] [place], [address] HEMOGLOBIN A1C Collected: 12/24/2017 Status: F Source: [place] 9:42 PM [facility] REPOS[facility] TYPE CODE TESTS RESULT OUT OF RANGE REFERENCE UNITS LAB L501.9985 4.2-6.3 % High HGB A1C 7.1 Performed By: #### L501.9985 #### [facility] [address] [place], [address] CHEST 1 VIEW Observed: 12/24/2017 Status: F Source: [place] 9:37 PM [facility] REPOSITORY [facility] Imaging Services [address] [place] [address] Chest 1 View MR#: [id number] Acct: [id number] Name: KWAME WEBBER Rep #: [id number] : 1945 F 72 From: Sandra Irving MD PCP: Twan Coy MD Status: REG ER Study: Chest 1 View Date of Exam: 12/24/17 Exam# [id number] Ordering Dr: Ana Bender MD STUDY: X-RAY [...] CC: Ana Bender MD; Twan Coy MD Community Organizer: Signed BEDSIDE GLUCOSE Collected: 12/24/2017 Status: F Source: [place] 9:23 PM [facility] REPOS[facility] TYPE CODE TESTS RESULT OUT OF RANGE REFERENCE UNITS LAB L501.080 70-110 mg/dL Normal BEDSIDE GLU 97 Result Comment: MANAGEMENT OF PATIENT CARE PER NURSING PROTOCOL Performed By: #### L501.080 #### [facility] Point of Care [facility] [place] [address] CBC W/DIFF, AUTOMATED Collected: 12/23/2017 Status: F Source: [place] 5:44 PM [facility] REPOS[facility] TYPE CODE TESTS RESULT OUT OF [...] Lymph 1.61 Performed By: #### L100.0100 #### [facility] [address] [place], [address] RENAL PROFILE Collected: 12/23/2017 Status: F Source: [place] 5:44 PM [facility] REPOS[facility] TYPE CODE TESTS RESULT OUT OF [...] CO2 31.0 Performed By: #### L500.3600 #### [facility] [address] [place], [place], [address] MICROALB:CREAT Collected: 12/23/2017 Status: F Source: [place] RATIO,RANDOM UR 5:44 PM [facility] REPOS[facility]ORY TYPE CODE TESTS RESULT OUT OF RANGE REFERENCE UNITS LAB L501.1200 NO RANGE EST. mg/dL Normal UR CREAT 138.00 LAB L502.0500 NO RANGE EST. mg/L Normal 68.4 MICROALBUMIN ,UR LAB L502.0600 <30 mg/g CRE mg/g CRE High 49.6 MALB:CREAT Performed By: #### L502.0250 #### [facility] [address] [place], [address] PTHIN Collected: 12/23/2017 Status: F Source: [place] 5:44 PM [facility] REPOS[facility] TYPE CODE TESTS RESULT OUT OF RANGE REFERENCE UNITS LAB L509.1000 18.4-80.1 pg/mL Normal PTHIN 25.3 Performed By: #### L509.1000 #### [facility] [address] [place], [address] VITAMIN D,25 HYDROXY Collected: 12/23/2017 Status: F Source: [place] 5:44 PM [facility] REPOS[facility] TYPE CODE TESTS RESULT OUT OF RANGE REFERENCE UNITS LAB L506.1000 29.95-100.01 ng/mL Normal Vitamin D 46.6 25-OH Result Comment: Vitamin D 25(OH) Status Range Deficiency <20 ng/mL (50nmol/L) Insuffciency 20 - 30 ng/mL (50 - 75 nmol/L) Sufficiency 30 - 100 ng/mL (75 - 250 nmol/L) Toxicity >100 ng/mL (>250 nmol/L) Performed By: #### L506.1000 #### [facility] [address] [place], [address] RE-EVALUTION OT Observed: 12/20/2017 Status: F Source: [place] 6:41 [facility] REPOSITORY [facility] Occupational Therapy [facility] [address] [place] [address] Fax REEVALUATION / MEDICARE RECERTIFICATION OCCUPATIONAL THERAPY MR#: [id number] Acct: [id number] Name: KWAME WEBBER Rep #: [id number] : 1945 72 From: Kala Negron OTR/L, [...] not want to participate in therapy. Objective/Function: towel stretcher strength L 15 # and R 45 [...] Pt will demo a increase in left towel stretcher strength to 25# to increase pts ind. [...] do not hesitate to contact me at [phone] by phone or if you have questions or concerns regarding this new plan of care! Sincerely, ALONA Rausch/Roberth CHT <Electronically signed by Kala SAGE/GRETTA Lepe> 12/20/17 1841 CC: Madhav Saba MD; Twan Coy MD MK Signed For Medicare only, by signing this I certify the plan of care. Physicians Signature Date EMERGENCY DEPARTMENT Observed: 12/15/2017 Status: F Source: [place] SUMMARY 6:15 PM [facility] REPOS[facility]ORY [facility] Medical Records Department [address] [place] [address] Emergency Department Summary 12/15/17 1106 MR#: [id number] Acct: [id number] Name: KWAME WEBBER Rep #: [id number] : 1945 72 From: Bolivar Chaudhari MD [...] Plan: Patient will be discharged with 10 [place]. Instructed to follow-up Dr. Coy in 2 days as previously scheduled. Return to the emergency department for any worsening symptoms. Disposition: To home in improved and stable condition. Impression: 1. Cephalgia. This note was generated with Apptio dictation software. It may contain incorrect words, spelling, and punctuation that were not noted in review of the chart prior to signing ED Disposition - Plan for ED Patient: Chief Complaint: Headache Instructions: ED Cephalgia Unspecified Prescriptions: Hydrocodone Bitart/Apap 5-325 [[place] 5MG-325MG] 1 tablet PO Q4H PRN PRN [...] your Primary Care Provider. Call [facility] ([phone]) or report to the closest Emergency Room. Call 911 if necessary. 12/15/17 1815 <Electronically signed by Bolivar Chaudhari MD> Date Bolivar Chaudhari MD Cosigner Signature (If Indicated): Date CC: Twan Coy MD BRAIN/HEAD WITHOUT Observed: 12/15/2017 Status: F Source: [place] CONTRAST 10:13 AM [facility] REPOSIT[facility] Imaging Services [address] [place] [address] Brain/Head without Contrast MR#: [id number] Acct: [id number] Name: KWAME WEBBER Rep #: [id number] : 1945 F 72 From: Amandeep Dawkins MD PCP: Twna Coy MD Status: REG ER Study: Brain/Head without Contrast Date of Exam: 12/15/17 Exam# [id number] Ordering Dr: Bolivar Chaudhari MD STUDY: CT [...] Amandeep Dawkins MD at 10:46 EDT Tel [phone], Service support , CC: Bolivar Chaudhari MD; Twan Coy MD Community Organizer: Signed RE-EVALUATION - PT (1) Observed: 12/07/2017 Status: F Source: [place] 4:47 PM [facility] REPOSITORY [facility] [address] [place] [address]. [address] [place] [address] Fax REEVALUATION / MEDICARE RECERTIFICATION PHYSICAL THERAPY MR#: [id number] Acct: [id number] Name: KWAME WEBBER Rep #: [id number] : 1945 72 From: Susan LARSENT Referring Dr.: Madhav Saba MD Status: REG [...] do not hesitate to contact me at [phone] by phone or if you have questions or concerns regarding this new plan of care! Sincerely, Susan You <Electronically signed by Susan You DPT> 12/07/17 8397 CC: Madhav Saba MD; Twan Coy MD ELR Signed For Medicare only, by signing this I certify the plan of care. Physicians Signature Date CARDIOLOGY VISIT Observed: 12/02/2017 Status: F Source: [place] REPORT 7:01 PM [facility] REPOSITORY [facility] [address] [place] [address] OFFICE VISIT Date of Service: 12/02/17 MR#: [id number] Acct: [id number] Name: KWAME WEBBER Rep #: [id number] : 1945 Provider: Scott De La Rosa MD Age/Sex: 72/F Location: [facility] Status: Signed HPI HPI Details: KWAME WEBBER, is a 72 F who presents to the office today for outpatient cardiovascular consultation and establishment of outpatient cardiovascular care for history of underlying CAD, PCI, valvular heart disease, superimposed upon peripheral vascular disease, hyperlipidemia, hypertension, and diabetes mellitus. She has previously been cared for by cardiovascular services in [place], [place]. It appears she has the aforementioned [...] .COMPLEX PRN tab 12/02/17 [History Confirmed 12/02/17] [facility] Medical History Nonrheumatic aortic (valve) stenosis (Acute) Pulmonary hypertension (Acute) Nonrheumatic tricuspid (valve) insufficiency (Acute) Nonrheumatic mitral (valve) insufficiency (Acute) Nonrheumatic mitral (valve) prolapse (Acute) CKD (chronic kidney disease) stage 3, GFR 30-59 ml/min (Chronic) Type 2 diabetes mellitus (Chronic) Essential hypertension (Chronic) Carotid artery stenosis (Chronic) Presence of stent in coronary artery (Chronic 1999) Atherosclerotic heart disease of [place] coronary artery without angina pectoris (Chronic) Hyperlipemia [...] AND Plan 1. Atherosclerotic heart disease of [place] coronary artery without angina pectoris I25.10 Plan [...] carotid artery disease status post carotid artery vlopzzbpbbvgme-xbpam-fhxul-in approximately 2000. She will continue her follow-up [...] vis,est,level 3 Diagnoses Atherosclerotic heart disease of [place] coronary artery without angina pectoris I25.10 Presence of stent in coronary artery Z95.5 Nonrheumatic aortic (valve) stenosis I35.0 Nonrheumatic mitral valve insufficiency I34.0 Non-rheumatic tricuspid valve insufficiency I36.1 Hyperlipidemia, unspecified hyperlipidemia type E78.5 Hyperlipidemia type: unspecified Essential hypertension I10 Bilateral carotid artery stenosis I65.23 Laterality: bilateral Pulmonary HTN I27.20 Coding Level of Care Code Off vis,est,level 3 Diagnoses Atherosclerotic heart disease of [place] coronary artery without angina pectoris I25.10 Presence of stent in coronary artery Z95.5 Nonrheumatic aortic (valve) stenosis I35.0 Nonrheumatic mitral valve insufficiency I34.0 Non-rheumatic tricuspid valve insufficiency I36.1 Hyperlipidemia, unspecified hyperlipidemia type E78.5 Hyperlipidemia type: unspecified Essential hypertension I10 Bilateral carotid artery stenosis I65.23 Laterality: bilateral Pulmonary HTN I27.20 12/02/171900 <Electronically signed by Scott De La Rosa MD> Date Scott De La Rosa MD Cosigner Signature: Date (if applicable) CC: Twan Coy MD 12 LEAD EKG PERFORMED Observed: 12/02/2017 Status: F Source: [place] [facility] 3:54 PM [facility] REPOSITORY [address] [address] 12 Lead EKG performed by [facility] 12/02/17 1553 MR#: [id number] Acct: [id number] Name: KWAME EWBBER Rep #: [id number] : 1945 72 From: Scott De La Rosa MD Attending Dr: Scott De La Rosa MD Status: DEP AMB Ordering Dr: Scott De La Rosa MD Date: 12/02/17 Location: [facility] [place] Sex: F C Admitted: BMS/12 Lead EKG performed by [facility] ECG Report Interpretation Sinus rhythm with PSVCsLeft axis deviationPossible left anterior fascicular block. Voltage criteria for LVH (R(aVL) Nonspecific ST depression + Nonspecific T-abnormality Poor R wave progressionABNORMAL Electronically signed on 12/02/2017 at 19:03 by Scott De La Rosa Software Version 8610 12/02/171904 Date Scott De La Rosa MD CC: Twan Coy MD Date Dictated: 12/02/17 1553 Date Transcribed: 12/02/171552 Community Organizer: PM Signed OT GENERAL EVALUATION Observed: 11/08/2017 Status: F Source: [place] 8:06 AM [facility] REPOSITORY [facility] Occup[facility] [address] [place] [address] Fax REHABILITATION SERVICES INITIAL EVALUATION MR#: [id number] Acct: [id number] Name: KWAME WEBBER Rep #: [id number] : 1945 72 From: Kala SAGE/Roberth, LEENAT Referring Dr.: Madhav Saba MD Status: REG RCR Insurance: MEDICARE PART A B Eval Date: [facility] Patient's Visit Information KWAME WEBBER is a 72 year old F, referred to Occupational Therapy by Madhav Saba MD, with a diagnosis of left distal radius fx. Date of Evaluation: 11/05/17 Occupational Therapist: ALONA Rausch/Roberth, CHT - Subjective Subjective: September 13, 2017 [...] Wrist: right 60/40 left 45/30 - Strength Die Designer: right 25# left 5# Lateral Pinch: right 4# left 2# Tripod Pinch: right 7# left 1# Strength Comments: pt demo with weak bilateral towel stretcher and pinch strength - Sensation Sensation Comments: denies - Hand/Wrist Evaluation Total Score of Pain AND Functional Sections: 56 - Goals Goal:: Pt will demo a increase in left towel stretcher strength to 25# to increase pts ind. [...] to be FAXED BACK to us at [phone] for Medicare purposes. Please let me know [...] 11/05/2017 Status: F Source: [place] 11:08 AM [facility] REPOSITORY [facility] [address] [place] [address]. [address] [place] [address] Fax REEVALUATION / MEDICARE RECERTIFICATION PHYSICAL THERAPY MR#: [id number] Acct: [id number] Name: KWAME WEBBER Rep #: [id number] : 1945 72 From: Susan You DPT [...] do not hesitate to contact me at [phone] by phone or if you have questions or concerns regarding this new plan of care! Sincerely, Susan You <Electronically signed by Susan You DPT> 11/05/17 1108 CC: Madhav Saba MD; Twan Coy MD ELR Signed For Medicare only, by signing this I certify the plan of care. Physicians Signature Date 12 LEAD ELECTROCARDIOGRAM Observed: 09/27/2017 Status: F Source: [place] 4:10 PM [facility] REPOSITORY [facility] Cardiovascular Services [address] [place] [address] 12 Lead EKG 09/20/17 0647 MR#: [id number] Acct: [id number] Name: KWAME WEBBER Rep #: [id number] : 1945 72 From: Scott De La Rosa MD Attending Dr: Gaston Spears DO Status: [facility] Ordering Dr: Manuel Chacon MD Date: 09/20/17 [place] [facility] [place]: F C Admitted: Test Reason : [...] Abnormal ECG Confirmed by RJ RUIZ, SCOTT ([id number]), loan expeditor MAYURI BLOUNT ([id number]) on 09/27/2017 4:10:01 PM Referred By: Gaston Spears Confirmed By:SCOTT DE LA ROSA MD 09/27/17 9463 Date Scott De La Rosa MD CC: Manuel Chacon MD; Gaston Spears DO; Twan Coy MD Signed BEDSIDE GLUCOSE Collected: 09/20/2017 Status: F Source: [place] 9:02 AM [facility] REPOSITORY TYPE CODE TESTS RESULT OUT OF REFERENCE UNITS RANGE LAB L501.080 70-110 mg/dL High BEDSIDE GLU 244 Result Comment: MANAGEMENT OF PATIENT CARE PER NURSING PROTOCOL Performed By: #### L501.080 #### [facility] Point of Care [address] [facility] [place] [address] OPERATIVE REPORT Observed: 09/20/2017 Status: F Source: [place] 8:15 AM [facility] REPOSIT[facility] Medical Records Department [address] [place] [address] Operative Report 09/20/17 0812 MR#: [id number] Acct: [id number] Name: KWAME WEBBER Rep #: [id number] : 1945 72 From: Gaston Spears DO PCP: Twan Coy MD Status: REG [facility] [place] Location: [place] [address] Report of Operation Date of Procedure: 09/20/17 Pre-Operative Diagnosis: Distal radius fracture left extra-articular Post-Operative Diagnosis: Same Surgery/Procedure Performed:: Open reduction with internal fixation of left distal radius Description of Surgical Findings:: Extra-articular displaced distal radius fracture monitor car operator: Jani Landon Type of Anesthesia:: General [...] of the radius and retracted medially. [place] retractor was then placed exposing the volar [...] the recovery room in stable condition. Physician golf course assistant was integral in all portions of this procedure. They assisted with positioning the patient, draping the extremity, holding retractors, closing the wound, and applying the dressing. This was all done under my direct supervision. The physician golf course assistant was essential for a successful, efficient [...] Prophylaxis: SCD's VTE Pharm Prophylaxis ordered?: No 09/20/17814 <Electronically signed by Gaston Spears DO> Date Gaston Spears DO CC: Gaston Spears DO; Twan Coy MD Signed DISCHARGE INSTRUCTION Observed: 09/20/2017 Status: F Source: [place] 8:12 AM [facility] REPOSITORY [facility] Medical Records Department [address] [facility] [address] Instructions for Home/Discharge Instructions 09/20/17810 MR#: [id number] Acct: [id number] Name: KWMAE WEBBER Rep #: [id number] : 1945 72 From: Gaston Spears DO PCP: Twan Coy MD Status: [place] [facility] [place] Diet: No Restrictions Discharge Activity: May [...] mg PO DAILY 09/13/17 Hydrocodone Bitart/Apap 5-325 [[place] 5MG-325MG] 1 tab PO Q6H PRN PRN 3 Days #10 tab 09/13/17 Lisinopril 40 mg PO DAILY 09/13/17 Cyanocobalamin (Vitamin B-12) [Vitamin B-12] 500 mcg PO DAILY 09/17/17 Test Results: Test results from this visit will be discussed in further detail at your follow-up appointment, if applicable. Please Follow Up With: Gaston Spears DO When: as scheduled 09/20/17 0812 <Electronically signed by Gaston Spears DO> Date Gaston Spears DO CC: Twan Coy MD PROTHROMBIN TIME W/INR Collected: 09/20/2017 Status: F Source: [place] 6:46 AM [facility] REPOSITORY TYPE CODE TESTS RESULT OUT OF RANGE REFERENCE UNITS LAB L300.4150 11.7-14.9 SECONDS Normal PROTIME 12.9 LAB L300.4200 Normal INR 1.0 Performed By: #### L300.3900, L300.4310 #### [facility] [address] [place], [place], [address] PARTIAL THROMBOPLAST Collected: 09/20/2017 Status: F Source: [place] TIME 6:46 AM [facility] REPOSITORY TYPE CODE TESTS RESULT OUT OF RANGE REFERENCE UNITS LAB L300.4310 24.1-36.2 Seconds Normal PTT 26.0 Performed By: #### L300.3900, L300.4310 #### [facility] [address] [place], [address] BEDSIDE GLUCOSE Collected: 09/20/2017 Status: F Source: [place] 6:31 AM [facility] REPOSITORY TYPE CODE TESTS RESULT OUT OF REFERENCE UNITS RANGE LAB L501.080 70-110 mg/dL High BEDSIDE GLU 234 Result Comment: MANAGEMENT OF PATIENT CARE PER NURSING PROTOCOL Performed By: #### L501.080 #### [facility] Point of Care [address] [place] [address] WRIST MIN 3 VIEWS Observed: 09/20/2017 Status: F Source: [place] 5:54 AM [facility] REPOSITORY [facility] Imaging Services [address] [place] [address] Wrist min 3 Views MR#: [id number] Acct: [id number] Name: KWAME WEBBER Rep #: [id number] : 1945 F 72 From: Amandeep Dawkins MD PCP: Twan Coy MD Status: [facility] Study: Wrist min 3 Views Date of Exam: 09/20/17 Exam# [id number] Ordering Dr: Gaston Spears DO STUDY: X-RAY [...] Amandeep Dawkins MD at 14:31 EDT Tel [phone], Service support , CC: Gaston Spears DO; Twan Coy MD Community Organizer: Signed EMERGENCY DEPARTMENT Observed: 09/13/2017 Status: F Source: [place] SUMMARY 5:08 AM [facility] Medical Records Department [address] [place] [address] Emergency Department Summary 09/13/17 0319 MR#: [id number] Acct: [id number] Name: KWAME WEBBER Rep #: [id number] : 1945 72 From: Ted Yang MD [...] going to need operative fixation. I did marriage and family counselor her on signs and symptoms of compartment syndrome and reasons to return. She will be discharged home with analgesics and orthopedic follow-up. Treatment Plan: [] Disposition: Discharge Impression: 1. Distal radius fracture of the left wrist 2. Hematoma block 3. Fracture reduction 4. Splint by ED physician This note was generated with Apptio dictation software. It may contain incorrect words, spelling, and punctuation that were not noted in review of the chart prior to signing ED Disposition - Plan for ED Patient: Chief Complaint: Upper Extremity Injury Instructions: ED Fx Colles Wrist Redu Requ Prescriptions: Hydrocodone Bitart/Apap 5-325 [[place] 5MG-325MG] 1 tab PO Q6H PRN PRN [...] your Primary Care Provider. Call [facility] ([phone]) or report to the closest Emergency Room. Call 911 if necessary. 09/13/17 0508 <Electronically signed by Ted Yang MD> Date Ted Yang MD Cosigner Signature (If Indicated): Date CC: Twan Coy MD WRIST MIN 3 VIEWS Observed: 09/13/2017 Status: F Source: [place] 4:17 AM [facility] Imaging Services [address] [place] [address] Wrist min 3 Views MR#: [id number] Acct: [id number] Name: KWAME WEBBER Rep #: [id number] : 1945 F 72 From: Miguel Giang PCP: Twan Coy MD Status: REG ER Study: Wrist min 3 Views Date of Exam: 09/13/17 Exam# [id number] Ordering Dr: Ted Yang MD STUDY: X-RAY [...] CC: Ted Yang MD; Twan Coy MD Community Organizer: Signed WRIST MIN 3 VIEWS Observed: 09/13/2017 Status: F Source: [place] 3:17 AM [facility] Imaging Services [address] [place] [address] Wrist min 3 Views MR#: [id number] Acct: [id number] Name: KWAME WEBBER Rep #: [id number] : 1945 F 72 From: Miguel Giang PCP: Twan Coy MD Status: REG ER Study: Wrist min 3 Views Date of Exam: 09/13/17 Exam# [id number] Ordering Dr: Ted Yang MD STUDY: X-RAY [...] CC: Ted Yang MD; Twan Coy MD Community Organizer: Signed RE-EVALUATION - PT (1) Observed: 09/08/2017 Status: F Source: [place] 9:25 AM [facility] Physical Therapy [facility] [address] [place] [address]. [address] [place] [address] Fax REEVALUATION / MEDICARE RECERTIFICATION PHYSICAL THERAPY MR#: [id number] Acct: [id number] Name: KWAME WEBBER Rep #: [id number] : 1945 72 From: Susan You DPT [...] her balance is improved. She went to [place] and fell 2x- slid out of the [...] do not hesitate to contact me at [phone] by phone or if you have questions or concerns regarding this new plan of care! Sincerely, Susan You <Electronically signed by Susan You DPT> 09/08/17 0925 CC: Madhav Saba MD; Twan Coy MD ELR Signed For Medicare only, by signing this I certify the plan of care. Physicians Signature Date PT COMMUNICATION Observed: 08/17/2017 Status: F Source: [place] 9:31 AM [facility] [address] [facility] [place] [address] Fax REHABILITATION SERVICES PROGRESS NOTE MR#: [id number] Acct: [id number] Name: KWAME WEBBER Rep #: [id number] : 1945 72 From: Maurizio Fairbanks DPT, OCS, CSCS Referring Dr.: Madhav Saba MD Status: REG RCR Insurance: MEDICARE PART A B AARP PT Communication Note 08/16/[address] Madhav Saba MD , Thank you for the referral of Kwame Webber to [facility] for balance assessment. I have enclosed [...] you have questions. Thank you. Sincerely, Maurizio Fairbanks, YAQUELIN, OC Contact Information 08/17/17 5931 <Electronically signed by Maurizio Fairbanks DPT, OCS, CSCS> Date Maurizio Fairbanks DPT, OCS, CSCS Cosigner Signature (if applicable): Date CC: Madhav Saba MD; Twan Coy MD Signed For Medicare only, by signing this I certify the plan of care. Physicians Signature Date DOWNTIME REPORT Observed: 08/12/2017 Status: F Source: [place] 2:01 PM [facility] Medical Records Department [address] [place] [address] Downtime Report MR#: [id number] Acct: [id number] Name: KWAME WEBBER Rep #: [id number] : 1945 72 From: Kishan Blount PCP: Twan Coy MD Status: REG CLI This patient was seen during an EMR downtime July 26, 2017 - August 02, 2017. This patient may have a combination of paper and electronic documentation or all paper documentation. All documentation is viewable within the e-chart portion of [facility] for each patient visit. INITAL EVALUATION (1) Observed: 08/09/2017 Status: F Source: [place] - PT 11:06 AM [facility] [address] [facility] [facility]. [address] [place] [address] Fax REHABILITATION SERVICES INITIAL EVALUATION MR#: [id number] Acct: [id number] Name: KWAME WEBBER Rep #: [id number] : 1945 72 From: Susan You DPT Referring Dr.: Madhav Saba MD Status: REG RCR Insurance: MEDICARE PART A B [facility] Patient's Visit Information KWAME WEBBER is a 72 year old F referred to Physical Therapy by Madhav Saba MD with a diagnosis of Balance. Date of Evaluation: 08/09/17 Physical Therapist: Susan You - Visit Plan Frequency: 2x /Week Duration: 4 Weeks Plan: Balance assessment (faxed to for approval), strength and core s/s. - [...] to be FAXED BACK to us at [phone] for Medicare purposes. Please let me know [...] Status: F Source: [place] (TSH) 9:32 AM [facility] RE[facility] Order Comment: Is Patient Taking Vitamins or Folic Acid Supplements? N TYPE CODE TESTS RESULT OUT OF RANGE REFERENCE UNITS LAB L501.9520 0.358-3.74 uIU/mL Normal TSH 3.66 Performed By: #### L501.9520, L505.7010, L506.0250 #### [facility] [address] [place], [address] RHEUMATOID FACTOR Collected: 07/30/2017 Status: F Source: [place] 9:32 AM [facility] Order Comment: Is Patient Taking Vitamins or Folic Acid Supplements? N TYPE CODE TESTS RESULT OUT OF RANGE REFERENCE UNITS LAB L505.7010 <15 IU/mL Normal RHEUMATOID FAC < 10.0 Performed By: #### L501.9520, L505.7010, L506.0250 #### [facility] [address] [place], [address] FOLATES, (FOLIC ACID) Collected: 07/30/2017 Status: F Source: [place] 9:32 AM [facility] Order Comment: Is Patient Taking Vitamins or Folic Acid Supplements? N TYPE CODE TESTS RESULT OUT OF RANGE REFERENCE UNITS LAB L506.0250 3.1-55.4 ng/mL Normal FOLATES 42.00 Performed By: #### L501.9520, L505.7010, L506.0250 #### [facility] [address] [place], [address] ERYTHROCYTE SED RATE Collected: 07/30/2017 Status: F Source: [place] 9:32 AM [facility] TYPE CODE TESTS RESULT OUT OF RANGE REFERENCE UNITS LAB L102.0000 0-30 mm/hr Normal SED RATE 13 Performed By: #### L101.9900 #### [facility] [address] [place], [address] VITAMIN B12 Collected: 07/30/2017 Status: F Source: [place] 9:32 AM [facility] TYPE CODE TESTS RESULT OUT OF RANGE REFERENCE UNITS LAB L503.0105 211-911 pg/mL Normal Vitamin B12 637 Performed By: #### L503.0105, L3890.6005 #### [facility] [address] [place], [address] HIV - [facility] Collected: 07/30/2017 Status: F Source: [place] 9:32 AM [facility] TYPE CODE TESTS RESULT OUT OF RANGE REFERENCE UNITS LAB L3890.6005 Nonreactive Normal HIV - [facility] Non-Reactive Performed By: #### L503.0105, L3890.6005 #### [facility] [address] [place], [address] ANTINUCLEAR ANTIBODIES Collected: 07/30/2017 Status: F Source: [place] DIRECT 9:32 AM [facility] TYPE CODE TESTS RESULT OUT OF RANGE REFERENCE UNITS LAB L3100.5475 Normal POLA-DIRECT Result Comment: TEST RESULT UNITS REF INTERVAL Antiextractable Nuclear Ag LEVELER HELPER Antibodies <0.2 AI 0.0 - 0.9 Romero Antibodies <0.2 AI 0.0 - 0.9 Antinuclear Antibodies Direct POLA Direct Negative Negative [facility] ORIGINAL REPORT ON FILE IN LAB CONTAINS ADDITIONAL TEST SITE INFORMATION. Performed By: #### L3100.5475 #### [facility] (refer to report for specific site) refer to report for address and phone number HEPATITIS C ANTIBODIES Collected: 07/30/2017 Status: F Source: [place] 9:32 AM [facility] Order Comment: Specimen Comment: A duplicate [...] with a HCV Nucleic Acid Amplification test (627031). Performed at: [address] [id number] Intern Brand: Pierce Mccormack PhD, Phone: [phone] Performed By: #### L3100.0625, L3100.4215, L3200.7274 #### [facility] (refer to report for specific site) refer to report for address and phone number PROTEIN ELECTROPH, S Collected: 07/30/2017 Status: F Source: [place] 9:32 AM [facility] Order Comment: Specimen Comment: A duplicate [...] scan will follow via computer, mail, or home energy auditor delivery. LAB L3100.4340 . Normal NOTE: Comment Result Comment: The SPE pattern appears essentially unremarkable. Evidence of monoclonal protein is not apparent. Performed By: #### L3100.0625, L3100.3450, L3200.1275 #### [facility] (refer to report for specific site) refer to report for address and phone number IMMUNOFIXATION, SERUM Collected: 07/30/2017 Status: F Source: [place] 9:32 AM [facility] Order Comment: Specimen Comment: A duplicate report has been generated due to demographic Specimen Comment: updates. TYPE CODE TESTS RESULT OUT OF RANGE REFERENCE UNITS LAB L3200.4667 814-2646 mg/dL Low IMMUNO G 683 LAB L3200.1400 64-422 mg/dL Normal IMMUNO A 218 LAB L3200.1500 26-217 mg/dL Normal IMMUNOGL M 67 LAB L3200.1505 . Normal JAZIEL RESULT,S Comment Result Comment: No monoclonality detected. Performed By: #### L3100.0625, L3100.3450, L3200.1275 #### [facility] (refer to report for specific site) refer to report for address and phone number EMERGENCY DEPARTMENT Observed: 07/26/2017 Status: F Source: [place] SUMMARY 12:18 AM [facility] Medical Records Department [address] [place] [address] Emergency Department Summary 07/25/172012 MR#: [id number] Acct: [id number] Name: KWAME WEBBRE Rep #: [id number] : 1945 72 From: Dash Arzate MD [...] toe contusion This note was generated with Apptio dictation software. It may contain incorrect words, [...] your Primary Care Provider. Call [facility] ([phone]) or report to the closest Emergency Room. Call 911 if necessary. 07/26/17 0018 <Electronically signed by Dash Arzate MD> Date Dash Arzate MD Cosigner Signature (If Indicated): Date CC: Twan Coy DISCHARGE INSTRUCTION Observed: 07/26/2017 Status: F Source: [place] 12:18 AM [facility] Medical Records Department [address] [place] [address] Discharge Instruction 07/25/172017 MR#: [id number] Acct: [id number] Name: KWAME WEBBER Rep #: [id number] : 1945 72 From: Dash Arzate MD PCP: Twan Coy Status: [facility] ED Disposition - Plan for ED Patient: [...] problems, contact your Primary Care Provider. Call [facility] ([phone]) or report to the closest Emergency Room. Call 911 if necessary. 07/26/17 0018 <Electronically signed by Dash Arzaet MD> Date Dash Arzate MD Cosigner Signature (If Indicated): Date CC: Twan Coy CBC W/DIFF, AUTOMATED Collected: 07/25/2017 Status: F Source: [place] 7:35 PM [facility] TYPE CODE TESTS RESULT OUT OF [...] Lymph 1.27 Performed By: #### L100.0100 #### [facility] [address] [place], [address] BASIC METABOLIC Collected: 07/25/2017 Status: F Source: [place] PROFILE ([facility]) 7:35 PM [facility] TYPE CODE TESTS RESULT OUT OF [...] GAP 9 Performed By: #### L500.2500 #### [facility] [address] [place], [address] BRAIN/HEAD WITHOUT Observed: 07/25/2017 Status: F Source: [place] CONTRAST 7:34 PM [facility] Imaging Services [address] [place] [address] Brain/Head without Contrast MR#: [id number] Acct: [id number] Name: KWAME WEBBER Rep #: [id number] : 1945 F 72 From: Carlos Salcedo MD PCP: Twan Coy Status: REG ER Study: Brain/Head without Contrast Date of Exam: 07/25/17 Exam# [id number] Ordering Dr: Dash Arzate MD STUDY: CT [...] , CC: Dash Arzate MD; Twan Coy Community Organizer: Signed BRAIN W/WO CONTRAST Observed: 07/06/2017 Status: F Source: [place] 12:52 PM [facility] REPOS[facility] Imaging Services [address] [address] Brain W/WO Contrast MR#: [id number] Acct: [id number] Name: KWAME WEBBER Rep #: [id number] : 1945 F 72 From: Domenic Padilla PCP: Twan Coy Status: REG CLI Study: Brain W/WO Contrast Date of Exam: 07/06/17 Exam# [id number] Ordering Dr: KALLIE DEY STUDY: MRI BRAIN WITH AND WITHOUT CONTRAST [...] Tel , Service support , CC: KALLIE DEY; Twan Coy Community Organizer: Signed BASIC METABOLIC Collected: 06/28/2017 Status: F Source: [place] PROFILE (BMP) 10:13 AM [facility] TYPE CODE TESTS RESULT OUT OF [...] GAP 9 Performed By: #### L500.2500 #### [facility] [address] [place], [address] BASIC METABOLIC Collected: 06/10/2017 Status: F Source: [place] PROFILE (BMP) 9:41 AM [facility] RE[facility] Order Comment: BUN,CREATININE FOR DR DEY [...] GAP 9 Performed By: #### L500.2500 #### [facility] [address] [place] [address]. [place], [place], [address] RENAL PROFILE Collected: 05/19/2017 Status: F Source: [place] 11:14 AM [facility] TYPE CODE TESTS RESULT OUT OF [...] CO2 32.0 Performed By: #### L500.3600 #### [facility] [address] [facility] [place], [place], [address] CBC-COMPLETE BLOOD CNT Collected: 05/19/2017 Status: F Source: [place] NO DIFF 11:14 AM [facility] TYPE CODE TESTS RESULT OUT OF [...] MPV 11.0 Performed By: #### L100.0500 #### [facility] [address] [facility] [place], [place], [address] VITAMIN D,25 HYDROXY Collected: 05/19/2017 Status: F Source: [place] 11:14 AM [facility] TYPE CODE TESTS RESULT OUT OF RANGE REFERENCE UNITS LAB L506.1000 29.95-100.01 ng/mL Normal Vitamin D 58.1 25-OH Result Comment: Vitamin D 25(OH) Status Range Deficiency <20 ng/mL (50nmol/L) Insuffciency 20 - 30 ng/mL (50 - 75 nmol/L) Sufficiency 30 - 100 ng/mL (75 - 250 nmol/L) Toxicity >100 ng/mL (>250 nmol/L) Performed By: #### L506.1000 #### [facility] [address] [place], [address] PTHIN Collected: 05/19/2017 Status: F Source: [place] 11:14 AM [facility] TYPE CODE TESTS RESULT OUT OF RANGE REFERENCE UNITS LAB L509.1000 18.4-80.1 pg/mL Normal PTHIN 41.9 Result Comment: Please Note: PTH INTACT METHOD AND REFERENCE RANGE CHANGE Effective 02/10/2017. Performed By: #### L509.1000 #### [facility] [address] [place], [place], [address] PROTEIN+CREATININE Collected: Status: F Source: [place] RATIO,URINE 05/19/2017 11:14 AM [facility] REPOS[facility] Order Comment: PATIENT UNABLE TO VOID. BRINGING SPECIMEN BACK IN. PT RETURNED AT 1700 WITH URINE/RHICKS TYPE CODE TESTS RESULT OUT OF RANGE REFERENCE UNITS LAB L501.1200 NO RANGE EST. mg/dL Normal UR CREAT 95.10 LAB L501.1930 <11.9 mg/dL Normal 9.0 PROTEIN,UR.R AN. LAB L501.1940 0-200 mg/g CRE Normal PROT:CRE 95 RATIO Performed By: #### L501.0900 #### [facility] [address] [place], [address] COMPREHENSIVE METABOLIC Collected: 04/28/2017 Status: F Source: [place] PROFIL 4:52 PM [facility] TYPE CODE TESTS RESULT OUT OF [...] 10 Performed By: #### L500.4050, L501.9520 #### [facility] [address] [place], [address] THYROID STIM HORMONE Collected: 04/28/2017 Status: F Source: [place] (TSH) 4:52 PM [facility] TYPE CODE TESTS RESULT OUT OF RANGE REFERENCE UNITS LAB L501.9520 0.358-3.74 uIU/mL Normal TSH 2.14 Performed By: #### L500.4050, L501.9520 #### [facility] [address] [place], [address] ALLERGIES ALLERGIES DATE TYPE / CODE NAME / CODE REACTION SEVERITY SOURCE 03/16/2018 Drug Penicillins/[id number] Rash Unknown [place] Allergy/416 476(RXNORM) Community 240286([facility] ED CT) Repository 03/16/2018 Drug adhesive Rash Unknown [place] Allergy/416 tape/[id number](RXN Community 576869([facility] ED CT) Repository 12/03/2016 DRUG LEVOFLOXACIN Mental g [facility] INGREDI/419 Other [place] 146867([facility] ED CT) /[id number] LEVOFLOXACIN [facility] 6([facility] [employer] CT) Repository ENCOUNTERS ENCOUNTERS ADMIT/DISCHARGE ACCOUNT NUMBER ADMITTING ENCOUNTER LOCATION SOURCE CLASS 03/16/2018/03/16/19 [id number] Ambulatory BMSBuilding: [place] 19 BMS.[facility] Repository 02/07/2018/02/08/20 [id number] Ambulatory BMSBuilding: [place] 18 BMS.CF.[facility] Repository 02/07/2018/02/08/20 [id number] Ambulatory [address] ding:SDC Repository 02/02/2018 [id number] Ambulatory BMSBuilding: [place] [facility] Repository 01/26/2018 [id number] Ambulatory [facility] ding:PT Repository 01/25/2018/01/26/20 [id number] Ambulatory BMSBuilding: [place] 18 BMS.[facility] Repository 01/24/2018 [id number] Ambulatory BMSBuilding: [place] BMS.CF.[facility] Repository 01/24/2018 [id number] Ambulatory [facility] ding:CVS Repository 12/29/2017/12/30/19 [id number] Ambulatory [address] ding:PT Repository 12/25/2017/12/27/19 [id number] Ambulatory BMSBuilding: [place] 18 [facility] Repository 12/25/2017 [id number] [place], Ambulatory BMSBuilding: [place] Manoj BMS.[facility] Repository 12/25/2017/12/27/19 [id number] [place], Inpatient [place] [address] [facility] ding:PCURoom Repository : ZYL123Bht: 1 12/25/2017 [id number] [place], Ambulatory BMSBuilding: [place] Manoj BMS.[facility] Repository 12/25/2017 [id number] [place], Ambulatory BMSBuilding: [place] Manoj BMS.[facility] Repository 12/23/2017 [id number] Ambulatory [facility] ding:LAB Repository 12/15/2017/12/16/19 [id number] Emergency [address] ding:ED Repository 12/02/2017/12/03/19 [id number] Ambulatory BMSBuilding: [place] 18 BMS.[facility] Repository 12/01/2017 [id number] Ambulatory BMSBuilding: [place] BMS.[facility] Repository 09/20/2017 [id number] Ambulatory BMSBuilding: [place] [facility] Repository 09/20/2017/09/21/19 [id number] Ambulatory [address] ding:SDC Repository 09/13/2017/09/14/19 [id number] Emergency [address] ding:ED Repository 07/30/2017 [id number] Ambulatory [facility] ding:LAB Repository 07/25/2017/07/26/19 [id number] Emergency [address] ding:ED Repository 07/06/2017 [id number] Ambulatory [facility] ding:MRI Repository 06/28/2017 [id number] Ambulatory [facility] ding:LAB Repository 06/17/2017 [id number] Ambulatory [facility] Repository 06/17/2017 [id number] Ambulatory [facility] MEDICAL Repository CENTERBuildi ng:[facility] 06/10/2017 [id number] Ambulatory [facility] ding:LAB Repository 05/19/2017 [id number] Ambulatory [facility] ding:LAB Repository 04/28/2017 [id number] [facility] ding:BFHLAB Repository PAYERS PAYERS ENCOUNTER GUARANTOR PAYER SUBSCRIBER SOURCE 03/16/2018 KWAME A Primary KWAME A [place] [id number] Insurance:MEDICARE WALTONDOB: Community INVERNESS PART A BPolicy [place]: [id number] [id number] Repository [address]Mdi: (330) Date:2018-03-07 [phone] () 03/16/2018 Secondary KWAME A [place] Insurance:AARPPolicy WALTONDOB: Community Number: [id number] Hospital [id number] Repository Date:5157-87-18[address], [place] [address]WW: 03/16/2018 Tertiary NOT GIVENUNK [place] Insurance:SELF PAY [facility] Effective Repository Date:2018-03-09 02/07/2018 [place] Primary KWAME A [place] [id number] Insurance:MEDICARE WALTONDOB: Community INVERNESS PART A BPolicy Number: [id number] [place] [id number] Repository [address]Nif: (330) Date:2018-01-25 [phone] () 02/07/2018 Secondary KWAME A [place] Insurance:AARPPolicy WALTONDOB: Community Number: [id number] Hospital [id number] Repository Date:9765-02-76[address]TM[address], [place] [address]ZA: 02/07/2018 Tertiary NOT GIVENUNK [place] Insurance:SELF PAY [facility] Number: Effective Repository Date:2018-02-07 02/07/2018 [place] Primary KWAME A [place] [id number] Insurance:MEDICARE WALTONDOB: Community INVERNESS PART A BPolicy Number: [id number] [place] [id number] Repository [address]Bad: (330) Date:2018-01-25 () 02/07/2018 Secondary KWAME A [place] Insurance:AARPPolicy WALTONDOB: Community Number: [id number] Hospital [id number] Repository Date:9180-15-79[address], [place] [address]AH: 02/07/2018 Tertiary NOT GIVENUNK [place] Insurance:SELF PAY [facility] Number: Effective Repository Date:2018-02-07 02/02/2018 [place] Primary KWAME A [place] [id number] Insurance:MEDICARE WALTONDOB: Community INVERNESS PART A BPolicy Number: [id number] [place] [id number] Repository [address]Gzx: (330) Date:2018-01-25951 () 02/02/2018 Secondary KWAME A [place] Insurance:AARPPolicy WALTONDOB: Community Number: [id number] Hospital [id number] Repository Date:2460-73-71[address]H, [place] [address]CH: 02/02/2018 Tertiary NOT GIVENUNK [place] Insurance:SELF PAY [facility] Number: Effective Repository Date:2018-02-02 01/26/2018 [place] Primary KWAME A [place] [id number] Insurance:MEDICARE WALTONDOB: Community INVERNESS PART A BPolicy Number: [id number] [place] [id number] Repository [address]Haj: (330) Date:2008-04-22 () 01/26/2018 Secondary KWAME A [place] Insurance:AARPPolicy WALTONDOB: Community Number: [id number] Hospital [id number] Repository Date:3769-27-20[address]QP[address], [place] [address]LW: 01/26/2018 Tertiary NOT GIVENUNK [place] Insurance:SELF PAY [facility] Number: Effective Repository Date:2018-01-21 01/25/2018 KWAME A Primary KWAME A [place] [id number] Insurance:MEDICARE WALTONDOB: Community [place] PART A BPolicy [place]: [id number] [id number] Repository 63645Kvt: (648) Date:2017-12-28486 () 01/25/2018 Secondary KWAME A [place] Insurance:AARPPolicy WALTONDOB: Community Number: [id number] Hospital [id number] Repository Date:5512-65-66[address]JKBWE, [place] [address]DM: 01/25/2018 Tertiary [place]IV[place]K [place] Insurance:SELF PAY [facility]: Effective Repository Date:2018-01-24 01/24/2018 [place] KWAME A [place] [id number] Insurance:MEDICARE WALTONDOB: Community [place] PART A BPolicy Number: [id number] [place] [id number] Repository 91980Sxd: (673) Date:2018-01-201646 () 01/24/2018 Secondary KWAME A [place] Insurance:AARPPolicy WALTONDOB: Community Number: [id number] Hospital [id number] Repository Date:1190-12-88WC [address]BRKZCXF, [place] [address]HS: 01/24/2018 Tertiary NOT GIV[place]UNK [place] Insurance:SELF PAY [facility] Number: Effective Repository Date:2018-01-24 01/24/2018 [place] [id number] Insurance:MEDICARE WALTONDOB: Community [place] PART A BPolicy Number: [id number] [place] [id number] Repository 55693Nkd: (821) Date:2018-01-206232 () 01/24/2018 Secondary KWAME A [place] Insurance:AARPPolicy WALTONDOB: Community Number: [id number] Hospital [id number] Repository Date:2850-15-68WT [address]CJQWGMC, [place] [address]DF: 01/24/2018 Tertiary NOT GIVENUNK [place] Insurance:SELF PAY [facility] Number: Effective Repository Date:2018-01-20 12/29/2017 [place] [id number] Insurance:MEDICARE WALTONDOB: Community [place] PART A BPolicy Number: [id number] [place] [id number] Repository 08939Ycp: (635) Date:2008-04-22 [phone] () 12/29/2017 Secondary KWAME A [place] Insurance:AARPPolicy WALTONDOB: Community Number: [id number] Hospital [id number] Repository Date:9987-42-53XV [address]NEVFCPC, [place] [address]IK: 12/29/2017 Tertiary NOT GIV[place]UNK [place] Insurance:SELF PAY [facility] Number: Effective Repository Date:2017-08-04 12/25/2017 [place] [id number] Insurance:MEDICARE WALTONDOB: Community [place] PART A BPolicy Number: [id number] [place] [id number] Repository 14336Vuz: (330) Date:2017-12-24 [phone] () 12/25/2017 Secondary KWAME A [place] Insurance:AARPPolicy WALTONDOB: Community Number: [id number] Hospital [id number] Repository Date:0811-45-75ZI [address]XDEZWPA, [place] [address]NI: 12/25/2017 Tertiary NOT GIVENUNK [place] Insurance:SELF PAY Community [facility] Number: Effective Repository Date:2017-12-25 12/25/2017 [place] KWAME A [place] [id number] Insurance:MEDICARE WALTONDOB: Community [place] PART A BPolicy Number: [id number] [place] [id number] Repository 523[address]Udo: (330) Date:2017-12-24 () 12/25/2017 Secondary KWAME A [place] Insurance:AARPPolicy WALTONDOB: Community Number: [id number] Hospital [id number] Repository Date:3915-37-25TC [address]PAEHNVP, [place] [address]SO: 12/25/2017 Tertiary NOT GIVENUNK [place] Insurance:SELF PAY [facility] Number: Effective Repository Date:2017-12-25 12/25/2017 [place] [id number] Insurance:MEDICARE WALTONDOB: Community [place] PART A BPolicy Number: [id number] [place], [place] [id number] Repository 89363Tia: (330) Date:2017-12-24655 () 12/25/2017 Secondary KWAME A [place] Insurance:AARPPolicy WALTONDOB: Community Number: [id number] Hospital [id number] Repository Date:5591-47-02GR [address]XEWPZEX, [place] [address]MX: 12/25/2017 Tertiary NOT GIVENUNK [place] Insurance:SELF PAY [facility] Number: Effective Repository Date:2017-12-24 12/25/2017 [place] Primary KWAME A [place] [id number] Insurance:MEDICARE WALTONDOB: Community [place] PART A BPolicy Number: [id number] [place], [place] [id number] Repository 44645Wat: (373) Date:2017-12-24096 () 12/25/2017 Secondary KWAME A [place] Insurance:AARPPolicy WALTONDOB: Community Number: [id number] Hospital [id number] Repository Date:8354-25-41CP [address]LBEARIV, [place] [address]TK: 12/25/2017 Tertiary NOT GIVENUNK [place] Insurance:SELF PAY Community [facility] Number: Effective Repository Date:2017-12-24 12/25/2017 [place] Primary KWAME A [place] [id number] Insurance:MEDICARE WALTONDOB: Community [place] PART A BPolicy Number: [id number] [place] [id number] Repository 92629Qcp: (330) Date:2017-12-24 [phone] () 12/25/2017 Secondary KWAME A [place] Insurance:AARPPolicy WALTONDOB: Community Number: [id number] Hospital [id number] Repository Date:4924-91-60WN [facility] 160198EOOIYJY, [place] [address]SQ: 12/25/2017 Tertiary NOT GIV[place]UNK [place] Insurance:SELF PAY [facility] Number: Effective Repository Date:2017-12-25 12/23/2017 [place] Primary KWAME A [place] [id number] Insurance:MEDICARE WALTONDOB: Community [place] PART A BPolicy Number: [id number] [place], [place] [id number] Repository 62777Kwl: (833) Date:2017-12-23825 () 12/23/2017 Secondary KWAME A [place] Insurance:AARPPolicy WALTONDOB: Community Number: [id number] Hospital [id number] Repository Date:8845-10-01ZM [address]NEVIHLN, [place] [address]AH: 12/23/2017 Tertiary NOT GIVENUNK [place] Insurance:SELF PAY [facility] Number: Effective Repository Date:2017-12-23 12/15/2017 [place] Primary KWAME A [place] [id number] Insurance:MEDICARE WALTONDOB: Community [place] PART A BPolicy Number: [id number] [place], [place] [id number] Repository 22744Toe: (330) Date:2017-12-15 [phone] () 12/15/2017 Secondary KWAME A [place] Insurance:AARPPolicy WALTONDOB: Community Number: [id number] [place] [address] [id number] Repository Date:9809-12-39NW [address]CMBJEUL, [place] [address]VM: 12/15/2017 Tertiary NOT GIVENUNK [place] Insurance:SELF PAY [facility] Number: Effective Repository Date:2017-12-15 12/02/2017 [place] Primary KWAME [place] [id number] Insurance:MEDICARE WALTONDOB: Community [place] PART A BPolicy Number: [id number], [place] [id number] Repository 56242Ixl: (583) Date:2017-11-09 [phone] () 12/02/2017 Secondary KWAME A [place] Insurance:AARPPolicy WALTONDOB: Community Number: [id number] Hospital [id number] Repository Date:8727-05-87PJ [address]WLPTPNJ, [place] [address]GA: 12/02/2017 Tertiary NOT GIVENUNK [place] Insurance:SELF PAY [facility] Number: Effective Repository Date:2017-12-02 12/01/2017 [place] Primary [place]WAME [place] [id number] Insurance:MEDICARE WALTONDOB: Community [place] PART A BPolicy Number: [id number], [place] [id number] Repository 77372Kfa: (330) Date:2017-12-01 [phone] (HP) 12/01/2017 Secondary KWAME A [place] Insurance:AARPPolicy WALTONDOB: Community Number: [id number] Hospital [id number] Repository Date:0179-82-09QT [facility] [address]RSMTOMX, [place] [address]EM: 12/01/2017 Tertiary NOT GIVENUNK [place] Insurance:SELF PAY [facility] Number: Effective Repository Date:2017-12-01 09/20/2017 [place] Primary KWAME A [place] [id number] Insurance:MEDICARE WALTONDOB: Community [place] PART A BPolicy Number: [id number], [place] [id number] Repository 20708Nhg: (514) Date:2017-09-16 [phone] () 09/20/2017 Secondary KWAME A [place] Insurance:AARPPolicy WALTONDOB: Community Number: [id number] Hospital [id number] Repository Date:4804-59-19ED [address]DSQYFQR, [place] [address]LJ: 09/20/2017 Tertiary NOT GIV[place]UNK [place] Insurance:SELF PAY [facility] Number: Effective Repository Date:2017-09-20 09/20/2017 [place] Primary KWAME A [place] [id number] Insurance[facility] [place] PART A BPolicy Number: [id number], [place] [id number] Repository 05540Taz: (330) Date:2017-09-163991 () 09/20/2017 Secondary KWAME A [place] Insurance:[facility] Hospitalt[facility] BALDWINDOB: Community Number: [id number] Hospital [id number] Repository Date:3975-35-34NA [address]RWVXSHG, [place] [address]NR: 09/20/2017 Tertiary NOT GIVENUNK [place] Insurance:SELF PAY [facility] Number: Effective Repository Date:2017-09-16 09/13/2017 [place] Primary [place]WAME A [place] [id number] Insurance:MEDICARE WALTONDOB: Community [place] PART A BPolicy Number: [id number], [place] [id number] Repository 77082Htf: (330) Date:2017-09-13 [phone] () 09/13/2017 Secondary KWAME A [place] [facility] Number: [id number] Hospital [id number] Repository Date:2409-76-34JL [address]BYTGHYO, [place] [address]XI: 09/13/2017 Tertiary NOT GIVENUNK [place] Insurance:SELF PAY [facility] Number: Effective Repository Date:2017-09-13 07/30/2017 [place] Primary [place]WAME [place] [id number] Insurance:MEDICARE WALTONDOB: Community [place] PART A BPolicy Number: [id number], [place] [id number] Repository 14606Bph: (330) Date:2017-07-30 () 07/30/2017 Secondary KWAME A [place] Insurance:AARPPolicy WALTONDOB: Community Number: [id number] Hospital [id number] Repository Date:9162-05-60CO [address]ZLGGTKV, [place] [address]CR: 07/30/2017 Tertiary NOT GIV[place]UNK [place] Insurance:SELF PAY [facility] Number: Effective Repository Date:2017-07-30 07/25/2017 [place] Primary KWAME A [place] [id number] Insurance:MEDICARE WALTONDOB: Community [place] PART A BPolicy Number: [id number], [place] [id number] Repository 54880Akm: (330) Date:2017-07-25 () 07/25/2017 Secondary KWAME A [place] Insurance:AARPPolicy WALTONDOB: Community Number: [id number] Hospital [id number] Repository Date:8830-90-46CA [address]GFAVSYW, [place] [address]YL: 07/25/2017 Tertiary NOT GIV[place]UNK [place] Insurance:SELF PAY [facility] Number: Effective Repository Date:2017-07-25 07/06/2017 [place] Primary KWAME A [place] [id number] Insurance:MEDICARE WALTONDOB: Community [place] PART A BPolicy Number: [id number], [place] [id number] Repository 63186Gmx: (330) Date:2017-07-05 () 07/06/2017 Secondary KWAME A [place] Insurance:AARPPolicy WALTONDOB: Community Number: [id number] Hospital [id number] Repository Date:6904-14-74ES [address]KOXCJIX, [place] [address]CG: 07/06/2017 Tertiary NOT GIVENUNK [place] Insurance:SELF PAY Community [facility] Number: Effective Repository Date:2017-07-05 06/28/2017 [place] Primary KWAME A [place] [id number] Insurance:MEDICARE WALTONDOB: Community [place] PART A BPolicy Number: [id number], [place] [id number] Repository 40842Bwm: (330) Date:2017-06-28 (HP) 06/28/2017 Secondary KWAME A [place] Insurance:AARPPolicy WALTONDOB: Community Number: [id number] Hospital [id number] Repository Date:9753-10-08SY [address]XJMUIIW, [place] [address]SQ: 06/28/2017 Tertiary NOT GIVENUNK [place] Insurance:SELF PAY [facility] Number: Effective Repository Date:2017-06-28 06/17/2017 KWAME WALTONDOB: Primary KWAME WALTONDOB: [place] [facility] Insurance:MEDICARE A [id number] INVERNESS AND BPolicy Number: Repository [place], [place] [id number] [address]Svf: (330) Date: (HP) 06/17/2017 Secondary KWAME WALTONDOB: [place] [facility] Insurance:[facility] [id number] SUPPLEMENTPolicy Repository Number: [id number] Date: 06/10/2017 [place] Primary KWAME A [place] [id number] Insurance:MEDICARE WALTONDOB: Community [place] PART A BPolicy Number: [id number], [place] [id number] Repository 26173Qvs: (330) Date:2017-06-10 (HP) 06/10/2017 Secondary KWAME A [place] Insurance:AARPPolicy WALTONDOB: Community Number: [id number] Hospital [id number] Repository Date:8463-60-83BC [address]OUU[place], [place] [address]TO: 06/10/2017 Tertiary NOT GIVENUNK [place] Insurance:SELF PAY Community [facility] Number: Effective Repository Date:2017-06-10 05/19/2017 [place] Primary KWAME A [place] [id number] Insurance:MEDICARE WALTONDOB: Community [place] PART A BPolicy Number: [id number], [place] [id number] Repository 95752Fwx: (330) Date:2017-05-19 [phone] (HP) 05/19/2017 Secondary KWAME A [place] Insurance:AARPPolicy WALTONDOB: Community Number: [id number] Hospital [id number] Repository Date:5207-44-32NP [address]VTQBQRJ [place] [address]RA: 05/19/2017 Tertiary NOT GIVENUNK [place] Insurance:SELF PAY [facility] Number: Effective Repository Date:2017-05-19 04/28/2017 [place] Primary KWAME A [place] [id number] Insurance:MEDICARE WALTONDOB: Community [place] PART A BPolicy Number: [id number], [place] [id number] Repository 38863Eow: (417) Date:2017-04-28 [phone] (HP) 04/28/2017 Secondary KWAME A [place] Insurance:AARPPolicy WALTONDOB: Community Number: [id number] Hospital [id number] Repository Date:8558-24-57ZY [address]MVGVVYR, [place] [address]RW: 04/28/2017 Tertiary NOT GIVENUNK [place] Insurance:SELF PAY [facility] Number: Effective Repository Date:2017-04-28
--- OUTSIDE RECORDS SUMMARY | 2018-05-11 20:08 | XMS RPT_ITS ---
:1945 Author Organization OHIP Support Name Relationship Address Phone R Unavailable Unavailable Unavailable AGUILA, [place]TA[place] Unavailable [address] + [place] [address] R Unavailable Unavailable [place], [place] Unavailable [address] + [place] [address] R Unavailable Unavailable [place] Unavailable [address] + [place] [address] R Unavailable Unavailable [place] Unavailable [address] + [place] [address] R Unavailable Unavailable [place] Unavailable [address] + [place] [address] R Unavailable Unavailable [place], [place] Unavailable [address] + [place] [address] R Unavailable Unavailable [place] Unavailable [address] + [place] [address] R Unavailable Unavailable [place] Unavailable [address] + [place] [address] R Unavailable Unavailable [place] Unavailable [address] + [place] [address] R Unavailable Unavailable [place] Unavailable [address] + [place] [address] R Unavailable Unavailable [place] Unavailable [address] + [place] [address] R Unavailable Unavailable [place] Unavailable [address] + [place] [address] R Unavailable Unavailable [place] Unavailable [address] + [place] [address] R Unavailable Unavailable Unavailable AGUILA, [place] Unavailable [address] + [place] [address] R Unavailable Unavailable [place], [place] Unavailable [address] + [place] [address] R Unavailable Unavailable [place], [place] Unavailable [address] + [place] [address] R Unavailable Unavailable [place] Unavailable [address] + [place] [address] R Unavailable Unavailable [place] Unavailable [address] + [place] [address] R Unavailable Unavailable [place] Unavailable [address] + [place] [address] R Unavailable Unavailable [place], [place] Unavailable [address] + [place] [address] R Unavailable Unavailable [place] Unavailable [address] + [place] [address] R Unavailable Unavailable [place], [place] Unavailable [address] + [place] [address] R Unavailable Unavailable [place], [place] Unavailable [address] + [place] [address] R Unavailable Unavailable [place], [place] Unavailable [address] + [place] [address] R Unavailable Unavailable [place], [place] Unavailable [address] + [place] [address] R Unavailable Unavailable [place], [place] Unavailable [address] + [place] [address] R Unavailable Unavailable [place], [place] Unavailable [address] + [place] [address] R Unavailable Unavailable [place], [place] Unavailable [address] + [place] [address] Care Team Providers Name Role Phone KALLIE DEY Referring Unavailable Shahbaz Young Attending Unavailable Shahbaz Young Referring Unavailable Twan Coy Primary Care Unavailable Twan Coy Attending Unavailable Twan Coy Primary Care Unavailable Manuel Verduzco Attending Unavailable Shahbaz Young Referring Unavailable Shahbaz Young Attending Unavailable Frannie Mosley PA-C Attending Unavailable Twan Coy Referring Unavailable Arianne, Jayaprakash Attending Unavailable Arianne, Jayaprakash [...] Arzate Attending Unavailable Madhav Saba Attending Unavailable Bavis, Madhav Referring Unavailable Zbigniew, Twan Primary Care Unavailable Madhav Saba Attending Unavailable Bavis, Madhav Referring Unavailable Zbigniew, Twan Primary Care Unavailable Zbigniew, Twan Primary Care Unavailable Ted Yang Attending Unavailable Gaston Spears Attending Unavailable Regan, Gaston Referring Unavailable Zbigniew, Twan Primary Care Unavailable Scott De La Rosa Attending Unavailable Gaston Spears Referring Unavailable Kala Santacruz Attending Unavailable Scott De La Rosa Attending Unavailable Zbigniew, Twan Referring Unavailable Zbigniew, Twan Primary Care Unavailable Bolivar Chaudhari Attending Unavailable Arianne, Jayaprakash Attending Unavailable Arianne, Jayaprakash Referring Unavailable Zbigniew, Twan Primary Care Unavailable Zbigniew, Twan Primary Care Unavailable Regi, Manoj Admitting Unavailable Sanaz, Cassandra S. Consulting Unavailable Maurizio Lozano Attending Unavailable Agyepong, Manoj Admitting Unavailable Agyepong, Manoj Attending Unavailable Zbigniew, Twan Primary Care Unavailable Sanaz, Cassandra S. Consulting Unavailable Manoj Deluna Consulting Unavailable Josephg Manoj Admitting Unavailable Maurizio Lozano Attending Unavailable Zbigniew, Twan Primary Care Unavailable Sanaz, Cassandra S. Consulting Unavailable Maurizio Lozano Consulting Unavailable Agyepong, Manoj Admitting Unavailable Maurizio Lozano Attending Unavailable Zbigniew, Twan Primary Care Unavailable Sanaz, Cassandra S. Consulting Unavailable Blake Maurizio Consulting Unavailable Manuel Verduzco Attending Unavailable Sherifyepong, Manoj Referring Unavailable Shahbaz Young Attending Unavailable Cebul, Shahbaz Referring Unavailable Zbigniew, Twan Primary Care Unavailable Zbigniew, Twan Attending Unavailable Zbigniew, Twan Referring Unavailable Zbigniew, Twan Primary Care Unavailable Hector Shahbaz Attending Unavailable Cebul, Shahbaz Referring Unavailable Zbigniew, Twan Primary Care Unavailable Shahbaz Young Consulting Unavailable Shahbaz Young Attending Unavailable Twan Coy Referring Unavailable KALLIE DEY Referring Unavailable IMCA Primary Care Unavailable PROBLEMS PROBLEMS DATE TYPE CONDITION / CODE ATTENDING STATUS SOURCE Unknown I65.23 - Occlusion and Shahbaz Young Active [place] 9 stenosis of bilateral Community carotid arteries / Hospital I65.23(ICD-10) Repository Unknown R94.31 - Abnormal Dax, Manuel Active [place] 8 electrocardiogram [ECG] Community [EKG] / R94.31(ICD-10) Hospital Repository Unknown I10 - Essential Dax, Manuel Active [place] 8 (primary) hypertension Community / I10(ICD-10) Hospital Repository Unknown I25.10 - Dax, Telford Active [place] 8 Atherosclerotic heart Community disease of [place] Hospital coronary artery without Repository angina pectoris / I25.10(ICD-10) Unknown Z95.5 - Presence of Dax, Telford Active [place] 8 coronary angioplasty Community implant and graft / Hospital Z95.5(ICD-10) Repository Unknown I65.22 - Occlusion and Shahbaz Young Active [place] 8 stenosis of left [facility] carotid artery / Hospital I65.22(ICD-10) Repository Unknown G62.9 - Polyneuropathy, JerryabdifatahMadhav Active [place] 8 unspecified / Community G62.9(ICD-10) Hospital Repository Unknown R26.89 - Other Madhav Saba Active [place] 8 abnormalities of gait Community and mobility / Hospital R26.89(ICD-10) Repository Unknown N18.3 - Chronic kidney Arianne, Active [place] 8 disease, stage 3 [facility] (moderate) / Hospital N18.3(ICD-10) Repository Unknown D63.1 - Anemia in Arianne, Active [place] 8 chronic kidney disease [facility] / D63.1(ICD-10) Hospital Repository Unknown N25.81 - Secondary Arianne, Active [place] 8 hyperparathyroidism of [facility] renal origin / Hospital N25.81(ICD-10) Repository Unknown R51 - Headache / Fara, Bolivar Active [place] 8 R51(ICD-10) [facility] Hospital Repository Unknown S52.509A - Unspecified Ted Yang Active [place] 8 fracture of the lower Community end of unspecified Hospital radius, initial Repository encounter for closed fracture / S52.509A(ICD-10) Unknown 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, Community unspecified / Hospital D32.9(ICD-10) Repository Active 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, unspecified / Clinic Other D32.9(ICD-10) [place] Repository Admitting Unknown / UNK(Unknown) Active [facility] 8 diagnosis Health System Repository Unknown R60.9 - Edema, Twan Coy [facility] 8 unspecified / Community R60.9(ICD-10) Hospital Repository Unknown E03.9 - Hypothyroidism, Twan Coy [facility] 8 unspecified / Community E03.9(ICD-10) Hospital Repository PROCEDURES PROCEDURES No Procedure Records FoundRESULTS RESULTS OPERATIVE REPORT Observed: 02/07/2018 Status: F Source: [place] 5:29 PM [facility] REPOSITORY [facility] Medical Records Department [address] [place] [address] Operative Report 02/07/18 0739 MR#: [id number] Acct: [id number] Name: KWAME WEBBER Rep #: [id number] : 1945 72 From: Shahbaz Young MD PCP: Twan Coy MD Status: [facility] [place] [facility] [place] List (1) Carotid stenosis, left Status: [...] BEDSIDE GLUCOSE Collected: 02/07/2018 Status: F Source: [place] 5:56 AM [facility] REPOSITORY TYPE CODE TESTS RESULT OUT OF REFERENCE UNITS RANGE LAB L501.080 70-110 mg/dL High BEDSIDE GLU 128 Result Comment: MANAGEMENT OF PATIENT CARE PER NURSING PROTOCOL Performed By: #### L501.080 #### [facility] Point of Care [address] [place] [address] 12 LEAD ELECTROCARDIOGRAM Observed: 02/04/2018 Status: F Source: [place] 9:58 AM [facility] REPOSITORY [facility] Cardiovascular Services [address] [place] [address] EKG - IAC 02/02/18 0844 MR#: [id number] Acct: [id number] Name: KWAME WEBBER Rep #: [id number] : 1945 72 From: Manuel Verduzco MD Attending Dr: Shahbaz Young MD Status: PRE IN Ordering Dr: Shahbaz Young MD Date: 02/02/18 [place] [facility] [place] Sex: F C Admitted: Test Reason : [...] ECG Confirmed by DAX RUIZ, MANUEL ([id number]), video news editor MAYURI BLOUNT (56) on 02/04/2018 9:57:57 AM Referred By: Shahbaz Young Confirmed By:MANUEL VERDUZCO MD 02/04/1858 Date Manuel Verduzco MD CC: Shahbaz Young MD; Twan Coy MD Date Dictated: 02/02/18843 Date Transcribed: 02/02/18843 Sheet Tailer: Signed CBC-COMPLETE BLOOD CNT Collected: 02/02/2018 Status: F Source: [place] NO DIFF 8:51 AM [facility] REPOSITORY TYPE CODE TESTS RESULT OUT OF [...] MPV 11.3 Performed By: #### L100.0500 #### [facility] [address] [place], [address] BASIC METABOLIC Collected: 02/02/2018 Status: F Source: [place] PROFILE (BMP) 8:51 AM [facility] REPOSITORY TYPE CODE TESTS RESULT OUT OF [...] GAP 11 Performed By: #### L500.2500 #### [facility] [address] [place], [address] SURGERY VISIT REPORT Observed: 01/25/2018 Status: F Source: [place] 4:20 PM [facility] REPOSITORY [facility] [address] [facility] [address] [place] [address] OFFICE VISIT Date of Service: 01/25/18 MR#: [id number] Acct: [id number] Name: KWAME WEBBER Rep #: [id number] : 1945 Provider: Shahbaz Yougn MD Age/Sex: 72/F Location: [facility] [place] Status: Signed Intake Vital Signs01/25/18 Height 5 ft 01/25/18 Weight: 175 lb 5 oz 01/25/18 Body Mass Index (BMI) 34.2 Intake Visit Reasons: Carotid Stenosis/[facility] F/U 12/24 Chief Complaint: left carotid stenosis, hx right CEA Environmental Health Manager Required: No Is patient in pain?: No [...] artery (Chronic 1999) Atherosclerotic heart disease of [place] coronary artery without angina pectoris (Chronic) Hyperlipemia [...] occlusive disease. Patient is referred by the [facility] hospitalist service as well as her primary care physician Dr. Twan Coy and a written copy of my surgical consult will be returned to him. She was admitted to the [facility] December 24 - December 26, 2017. [...] the left cavernous carotid without luminal narrowing. [place] otherwise normal. She also had [...] coronary stenting approximately the year 1999. Her re etcher is Dr. Scott De La Rosa. It [...] OF NON Observed: 01/24/2018 Status: F Source: [facility] 6:51 PM [facility] REPOSITORY [facility] Occupational Therapy [facility] [address] [place] [address]. [address] [place] [address] Fax REHABILITATION SERVICES DISCHARGE SUMMARY MR#: [id number] Acct: [id number] Name: KWAME WEBBER Rep #: [id number] : 1945 72 From: Kala Negron OTR/L, [...] ROM: 65/45 and L wrist ROM: 53/53 associate broker strength L 15 # and R 45 [...] CAROTID DUPLEX Observed: 01/24/2018 Status: F Source: [place] ULTRASOUND 5:18 PM [facility] REPOSITORY [facility] Cardiovascular Services [address] [place] [address] [place] [address] Carotid Duplex Ultrasound 01/24/18 1007 MR#: [id number] Acct: [id number] Name: KWAME WEBBER Rep #: [id number] : 1945 72 From: Shahbaz Young MD [...] the left vertebral artery. Procedure Carotid Duplex 93301. Exam performed in department. Interpretation Summary Post [...] Date Dictated: 01/24/18 1007 Date Transcribed: 01/24/181716 Sheet Tailer: Signed CONSULTATION Observed: 01/07/2018 Status: F Source: [place] 4:00 PM [facility] REPOSITORY [facility] Medical Records Department [address] [place] [address] Consultation 12/25/17 1549 MR#: [id number] Acct: [id number] Name: KWAME WEBBER Rep #: [id number] : 1945 72 From: Cassandra Yo MD PCP: Twan Coy MD Status: DIS IN Y Location: [place] [address] Problem List (1) TIA (transient ischemic attack) [...] (Last Updated 12/25/17 @ 10:32 by Maurizio Loznao DO) Nonrheumatic aortic (valve) stenosis (Chronic) Pulmonary [...] the LAD 1999 Atherosclerotic heart disease of [place] coronary artery without angina pectoris (Chronic) Hyperlipemia [...] the LAD 1999 Atherosclerotic heart disease of [place] coronary artery without angina pectoris (Chronic) I25.10 [...] -CTA head/neck- Left ICA 70-80% stenosis -LDL-57, Dkg3p-3.1% -TTE-EF-60%, normal LA size -Recommend Vascular surgery [...] management Code Visit Inpatient E AND M: 99346 Init Hosp L3 01/07/18 1600 <Electronically signed by Cassandra Yo MD> Date Cassandra Yo MD Cosigner Signature (if applicable): Date CC: Aurora Yo MD; Twan Coy MD Signed 12 LEAD ELECTROCARDIOGRAM Observed: 12/30/2017 Status: F Source: [place] 4:08 PM [facility] RE[facility]ITORY [facility] Cardiovascular Services [address] [place] [address] 12 Lead EKG 12/25/17 0632 MR#: [id number] Acct: [id number] Name: KWAME WEBBER Rep #: [id number] : 1945 72 From: Manuel Verduzco MD Attending Dr: Maurizio Lozano DO Status: DIS IN Ordering Dr: Maurizio Lozano DO Date: 12/25/17 Location: [facility] Sex: F C Admitted: 12/25/17 Test Reason [...] ECG Confirmed by MANUEL VERDUZCO MD ([id number]), video news editor MAYURI BLOUNT (56) on 12/30/2017 4:07:48 PM Referred By: Kayleigh South Confirmed By:MANUEL VERDUZCO MD 12/30/17 1607 Date Manuel Verduzco MD CC: Maurizio Lozano DO; Twan Coy MD Signed 12 LEAD ELECTROCARDIOGRAM Observed: 12/30/2017 Status: F Source: [place] 4:07 PM [facility] REPOSITORY [facility] Cardiovascular Services [address] [place] [address] 12 Lead EKG 12/25/17 1655 MR#: [id number] Acct: [id number] Name: KWAME WEBBER Rep #: [id number] : 1945 72 From: Manuel Verduzco MD [...] UNCONFIRMED Confirmed by MANUEL VERDUZCO MD ([id number]), video news editor MAYURI BLOUNT (56) on 12/30/2017 4:07:11 PM Referred By: Kayleigh South Confirmed By:MANUEL VERDUZCO MD 12/30/17 1607 Date Manuel Verduzco MD CC: Maurizio Lozano DO; Manoj Deluna MD; Twan Coy MD Signed 12 LEAD ELECTROCARDIOGRAM Observed: 12/27/2017 Status: F Source: [place] 3:20 PM [facility] REPOSITORY [facility] Cardiovascular Services [address] [place] [address] 12 Lead EKG 12/24/17 2131 MR#: [id number] Acct: [id number] Name: KWAME WEBBER Rep #: [id number] : 1945 72 From: Manuel Verduzco MD [...] ECG Confirmed by MANUEL VERDUZCO MD ([id number]), video news editor MAYURI BLOUNT (56) on 12/27/2017 3:19:53 PM Referred By: Kayleigh South Confirmed By:MANUEL VERDUZCO MD 12/27/17 1519 Date Manuel Verduzco MD CC: Ana Bender MD; Maurizio Lozano DO; Twan Coy MD Signed DISCHARGE SUMMARY Observed: 12/26/2017 Status: F Source: [place] 10:45 AM [facility] REPOSITORY [facility] Medical Records Department [address] [place] [address] Discharge Summary 12/26/17 1039 MR#: [id number] Acct: [id number] Name: KWAME WEBBER Rep #: [id number] : 1945 72 From: Maurizio Lozano DO PCP: Twan Coy MD Status: ADM IN Y Location: [place] [address] Discharge Date and Diagnosis - Problem List [...] the LAD 1999 Atherosclerotic heart disease of [place] coronary artery without angina pectoris (Chronic) Hyperlipemia (Chronic) Hypothyroidism (Chronic) Hospital Course and Treatment Imaging Results: Clinical Impression(s) from Imaging Studies Head CTA 12/24/17 21:44 IMPRESSION: Normal [place] without a demonstrated aneurysm or hemodynamically significant stenosis. Electronically Signed: Juan Ang DO at 23:25 EDT Tel [phone], Service support , Neck CTA 12/24/17 21:44 IMPRESSION: 1. Question 70-80% stenosis of the left carotid bulb. 2. Minimal atherosclerotic changes of the distal right common carotid artery without stenosis. 3. No other evidence of vascular abnormality. Electronically Signed: Juan Ang DO at 23:34 EDT Tel [phone], Service support , Chest X-Ray 12/24/17 22:08 [...] Indicated Code Visit Inpatient E AND M: 57303 Disch Hosp 12/26/17 1045 <Electronically signed by Maurizio Lozano DO> Date Maurizio Lozano DO Cosigner Signature (if applicable): Date CC: Maurizio Lozano DO; Twan Coy MD Signed DISCHARGE INSTRUCTION Observed: 12/26/2017 Status: F Source: [place] 10:39 AM [facility] REPOSITORY [facility] Medical Records Department [address] [place] [address] Instructions for Home/Discharge Instructions 12/26/17 1035 MR#: [id number] Acct: [id number] Name: KWAME WEBBER Rep #: [id number] : 1945 72 From: Maurizio Lozano DO [...] 12/26/2017 Status: F Source: [place] 6:44 AM [facility] REPOSITORY TYPE CODE TESTS RESULT OUT OF REFERENCE UNITS RANGE LAB L501.080 70-110 mg/dL High BEDSIDE GLU 124 Result Comment: MANAGEMENT OF PATIENT CARE PER NURSING PROTOCOL Performed By: #### L501.080 #### [facility] Point of Care [address] [place] [address] BEDSIDE GLUCOSE Collected: 12/25/2017 Status: F Source: [place] 11:47 PM [facility] REPOSITORY TYPE CODE TESTS RESULT OUT OF REFERENCE UNITS RANGE LAB L501.080 70-110 mg/dL High BEDSIDE GLU 138 Result Comment: MANAGEMENT OF PATIENT CARE PER NURSING PROTOCOL Performed By: #### L501.080 #### [facility] Point of Care [address] [place] [address] BEDSIDE GLUCOSE Collected: 12/25/2017 Status: F Source: [place] 9:00 PM [facility] REPOSITORY TYPE CODE TESTS RESULT OUT OF RANGE REFERENCE UNITS LAB L501.080 70-110 mg/dL Normal BEDSIDE GLU 86 Result Comment: MANAGEMENT OF PATIENT CARE PER NURSING PROTOCOL Performed By: #### L501.080 #### [facility] Point of Care [address] [place] [address] HISTORY AND PHYSICAL Observed: 12/25/2017 Status: F Source: [place] 5:40 PM [facility] REPOSITORY [facility] Medical Records Department [address] [place] [address] History and Physical 12/24/17 2353 MR#: [id number] Acct: [id number] Name: KWAME WEBBER Rep #: [id number] : 1945 72 From: Manoj Deluna MD PCP: Twan Coy MD Status: ADM IN Location: [place] [address] ADDENDUM by Manoj Deluna MD on 12/25/17 [...] the LAD 1999 Atherosclerotic heart disease of [place] coronary artery without angina pectoris (Chronic) Hyperlipemia [...] the LAD 1999 Atherosclerotic heart disease of [place] coronary artery without angina pectoris (Chronic) I25.10 [...] (Auto) Neut % (Auto) Lymph % (Auto) [place] % (Auto) POC Glucose POC Glucose 97 [...] . Code Visit OBSV E AND M: 57168 Initial observation care L3 12/25/17 0643 <Electronically signed by Manoj Deluna MD> Date Manoj Deluna MD Cosigner Signature: Date (if applicable) CC: Manoj Deluna MD; Twan Coy MD Signed BEDSIDE GLUCOSE Collected: 12/25/2017 Status: F Source: [place] 4:29 PM [facility] REPOSITORY TYPE CODE TESTS RESULT OUT OF REFERENCE UNITS RANGE LAB L501.080 70-110 mg/dL High BEDSIDE GLU 141 Result Comment: MANAGEMENT OF PATIENT CARE PER NURSING PROTOCOL Performed By: #### L501.080 #### [facility] Point of Care [address] [place] [address] BEDSIDE GLUCOSE Collected: 12/25/2017 Status: F Source: [place] 12:04 PM [facility] REPOSITORY TYPE CODE TESTS RESULT OUT OF REFERENCE UNITS RANGE LAB L501.080 70-110 mg/dL High BEDSIDE GLU 276 Result Comment: MANAGEMENT OF PATIENT CARE PER NURSING PROTOCOL Performed By: #### L501.080 #### [facility] Point of Care [address] [place] [address] ECHOCARDIOGRAM COMPLETE Observed: 12/25/2017 Status: F Source: [place] 11:38 AM [facility] REPOSITORY [facility] Cardiovascular Services [address] [place] [address] Echo Complete 12/25/17 0710 MR#: [id number] Acct: [id number] Name: KWAME WEBBER Rep #: [id number] : 1945 72 From: Manuel Verduzco MD [...] dysfunction. Moderate pulmonary hypertension. Ordering Physician: Manoj Delnua Referring Physician: Twan Coy Performed By: Jorge Sheriff RCS 12/25/171136 Date Manuel Verduzco MD CC: Maurizio Lozano DO; Manoj Deluna MD; Twan Coy MD Date Dictated: 12/25/1710 Date Transcribed: 11/03/18 1137 Sheet Tailer: Signed BEDSIDE GLUCOSE Collected: 12/25/2017 Status: F Source: [place] 7:06 AM [facility] REPOSITORY TYPE CODE TESTS RESULT OUT OF REFERENCE UNITS RANGE LAB L501.080 70-110 mg/dL High BEDSIDE GLU 167 Result Comment: MANAGEMENT OF PATIENT CARE PER NURSING PROTOCOL Performed By: #### L501.080 #### [facility] Point of Care [address] [place] [address] LIPID PROFILE Collected: 12/25/2017 Status: F Source: [place] 6:00 AM [facility] REPOSITORY TYPE CODE TESTS RESULT OUT OF [...] VLDL 33 Performed By: #### L500.4100 #### [facility] [address] [place], [address] BRAIN WITHOUT Observed: 12/25/2017 Status: F Source: [place] CONTRAST 12:41 AM [facility] REPOSITORY [facility] Imaging Services [address] [place] [address] Brain without Contrast MR#: [id number] Acct: [id number] Name: KWAME WEBBER Rep #: [id number] : 1945 F 72 From: Domenic Padilla PCP: Twan Coy MD Status: ADM YAIR Study: Brain without Contrast Date of Exam: 12/25/17 Exam# [id number] Ordering Dr: Manoj Deluna MD STUDY: MRI [...] CC: Manoj Deluna MD; Twan Coy MD Sheet Tailer: Signed EMERGENCY DEPARTMENT Observed: 12/24/2017 Status: F Source: [place] SUMMARY 11:45 PM [facility] REPOSITORY [facility] Medical Records Department [address] [place] [address] Emergency Department Summary 12/24/17 2148 MR#: [id number] Acct: [id number] Name: KWAME WEBBER Rep #: [id number] : 1945 72 From: Ana Bender MD [...] speaking at that time. She was given [place] for home. She states this helped but [...] unremarkable. Troponin 0.034. CTA head shows normal [place] of [place] without a demonstrated aneurysm or [...] Expressive aphasia This note was generated with [employer] dictation software. It may contain incorrect words, [...] problems, contact your Primary Care Provider. Call [facility] ([phone]) or report to the closest Emergency Room. Call 911 if necessary. 12/24/17 3929 <Electronically signed by Ana Bender MD> Date Ana Bender MD Cosigner Signature (If Indicated): Date CC: Twan Coy MD URINALYSIS, COMPLETE Collected: 12/24/2017 Status: F Source: [place] 10:21 PM [facility] REPOS[facility] Order Comment: Order Date: 12/24/17 Has [...] 5-10 SEEN Performed By: #### L400.0001 #### [facility] [address] [place], [address] CTA HEAD W/WO Observed: 12/24/2017 Status: F Source: [place] CONTR[place] 9:44 PM [facility] REPOSITORY [facility] Imaging Services [address] [place] [address] CTA Head W/WO Contrast MR#: [id number] Acct: [id number] Name: KWAME WEBBER Rep #: [id number] : 1945 F 72 From: Juan Ang DO PCP: Twan Coy MD Status: REG ER Study: CTA Head W/WO Contrast Date of Exam: 12/24/17 Exam# [id number] Ordering Dr: Ana Bender MD STUDY: CTA [...] There is no demonstrated aneurysm of the jackson of [place]. There is no demonstrated abnormality of the visualized brain. CT/CTA Head W/WO Contrast IMPRESSION: Normal jackson of [place] without a demonstrated aneurysm or hemodynamically significant stenosis. Electronically Signed: Juan Ang DO at 23:25 EDT Tel [phone], Service support , CC: Ana Bender MD; Twan Coy MD Sheet Tailer: Signed CTA NECK W/WO Observed: 12/24/2017 Status: F Source: [facility] [place] CONTRAST 9:44 PM [facility]POS[facility] Imaging Services [address] [place] [address] CTA Neck W/WO Contrast MR#: [id number] Acct: [id number] Name: KWAME WEBBER Rep #: [id number] : 1945 F 72 From: Juan Ang DO PCP: Twan Coy MD Status: REG ER Study: CTA Neck W/WO Contrast Date of Exam: 12/24/17 Exam# [id number] Ordering Dr: Ana Bender MD STUDY: CTA [...] Juan Ang DO at 23:34 EDT Tel [phone], Service support , CC: Ana Bender MD; Twan Coy MD Sheet Tailer: Signed CBC W/DIFF, AUTOMATED Collected: 12/24/2017 Status: F Source: [place] 9:42 PM [facility] TYPE CODE TESTS RESULT OUT OF [...] Lymph 2.10 Performed By: #### L100.0100 #### [facility] [address] [place], [address] PROTHROMBIN TIME W/INR Collected: 12/24/2017 Status: F Source: [facility] [place] 9:42 PM [facility] TYPE CODE TESTS RESULT OUT OF RANGE REFERENCE UNITS LAB L300.4150 11.7-14.9 SECONDS Normal PROTIME 12.6 LAB L300.4200 Normal INR 0.9 Performed By: #### L300.3900, L300.4310 #### [facility] [address] [place], [place], [address] PARTIAL THROMBOPLAST Collected: 12/24/2017 Status: F Source: [facility] [place] TIME 9:42 PM [facility] TYPE CODE TESTS RESULT OUT OF RANGE REFERENCE UNITS LAB L300.4310 24.1-36.2 Seconds Normal PTT 24.7 Performed By: #### L300.3900, L300.4310 #### [facility] [address] [place], [place], [address] BASIC METABOLIC Collected: 12/24/2017 Status: F Source: [place] PROFILE (BMP) 9:42 PM [facility] TYPE CODE TESTS RESULT OUT OF [...] 7 Performed By: #### L500.2500, L501.4010 #### [facility] [address] [place], [place], [address] TROPONIN-I Collected: 12/24/2017 Status: F Source: [place] 9:42 PM [facility] TYPE CODE TESTS RESULT OUT OF RANGE REFERENCE UNITS LAB L501.4010 <0.045 ng/mL Normal 0.034 TROPONIN-I Result Comment: TROPONIN-I EXPECTED VALUES <0.045 Negative 0.045 - 0.590 Consistent with Cardiac Damage > OR = 0.600 Critical Value Not every elevated troponin is indicative of VT. These values should be used with clinical judgement in examining the patient's clinical picture for diagnosis. To establish a diagnosis of VT versus myocardial injury, there must be a demonstrated rise and/or fall in the troponin values, in addition to ischemic symptoms, EKG changes, new regional wall motion abnormality, and/or angiographical evidence. PLEASE NOTE: REFERENCE RANGES EDITED 17 Performed By: #### L500.2500, L501.4010 #### [facility] [address] [place], [address] ERYTHROCYTE SED RATE Collected: 12/24/2017 Status: F Source: [facility] [place] 9:42 PM [facility] TYPE CODE TESTS RESULT OUT OF RANGE REFERENCE UNITS LAB L102.0000 0-30 mm/hr Normal SED RATE 14 Performed By: #### L101.9900 #### [facility] [address] [place], [address] HEMOGLOBIN A1C Collected: 12/24/2017 Status: F Source: [facility] [place] 9:42 PM [facility] TYPE CODE TESTS RESULT OUT OF RANGE REFERENCE UNITS LAB L501.9985 4.2-6.3 % High HGB A1C 7.1 Performed By: #### L501.9985 #### [facility] [address] [place], [address] CHEST 1 VIEW Observed: 12/24/2017 Status: F Source: [facility] [place] 9:37 PM [facility] Imaging Services [address] [place] [address] Chest 1 View MR#: [id number] Acct: [id number] Name: KWAME WEBBER Rep #: [id number] : 1945 F 72 From: Sandra Irving MD PCP: Twan Coy MD Status: REG ER Study: Chest 1 View Date of Exam: 12/24/17 Exam# [id number] Ordering Dr: Ana Bender MD STUDY: X-RAY [...] CC: Ana Bender MD; Twan Coy MD Sheet Tailer: Signed BEDSIDE GLUCOSE Collected: 12/24/2017 Status: F Source: [facility] [place] 9:23 PM [facility] TYPE CODE TESTS RESULT OUT OF RANGE REFERENCE UNITS LAB L501.080 70-110 mg/dL Normal BEDSIDE GLU 97 Result Comment: MANAGEMENT OF PATIENT CARE PER NURSING PROTOCOL Performed By: #### L501.080 #### [facility] Point of Care [facility] [place] [address] CBC W/DIFF, AUTOMATED Collected: 12/23/2017 Status: F Source: [facility] [place] 5:44 PM [facility] TYPE CODE TESTS RESULT OUT OF [...] Lymph 1.61 Performed By: #### L100.0100 #### [facility] [address] [place], [address] RENAL PROFILE Collected: 12/23/2017 Status: F Source: [facility] [place] 5:44 PM [facility] TYPE CODE TESTS RESULT OUT OF [...] CO2 31.0 Performed By: #### L500.3600 #### [facility] [address] [place], [place], [address] MICROALB:CREAT Collected: 12/23/2017 Status: F Source: [place] RATIO,RANDOM UR 5:44 PM [facility] TYPE CODE TESTS RESULT OUT OF RANGE REFERENCE UNITS LAB L501.1200 NO RANGE EST. mg/dL Normal UR CREAT 138.00 LAB L502.0500 NO RANGE EST. mg/L Normal 68.4 MICROALBUMIN ,UR LAB L502.0600 <30 mg/g CRE mg/g CRE High 49.6 MALB:CREAT Performed By: #### L502.0250 #### [facility] [address] [place], [address] PTHIN Collected: 12/23/2017 Status: F Source: [place] 5:44 PM [facility] TYPE CODE TESTS RESULT OUT OF RANGE REFERENCE UNITS LAB L509.1000 18.4-80.1 pg/mL Normal PTHIN 25.3 Performed By: #### L509.1000 #### [facility] [address] [place], [address] VITAMIN D,25 HYDROXY Collected: 12/23/2017 Status: F Source: [place] 5:44 PM [facility] TYPE CODE TESTS RESULT OUT OF RANGE REFERENCE UNITS LAB L506.1000 29.95-100.01 ng/mL Normal Vitamin D 46.6 25-OH Result Comment: Vitamin D 25(OH) Status Range Deficiency <20 ng/mL (50nmol/L) Insuffciency 20 - 30 ng/mL (50 - 75 nmol/L) Sufficiency 30 - 100 ng/mL (75 - 250 nmol/L) Toxicity >100 ng/mL (>250 nmol/L) Performed By: #### L506.1000 #### [facility] [address] [place], [address] RE-EVALUTION OT Observed: 12/20/2017 Status: F Source: [facility] 6:41 [facility] REPOSITORY [facility]ational [facility] [address] [place] [address] Fax REEVALUATION / MEDICARE RECERTIFICATION OCCUPATIONAL THERAPY MR#: [id number] Acct: [id number] Name: KWAME WEBBER Rep #: [id number] : 1945 72 From: Kala Negron OTR/L, [...] not want to participate in therapy. Objective/Function: associate broker strength L 15 # and R 45 [...] Pt will demo a increase in left associate broker strength to 25# to increase pts ind. [...] do not hesitate to contact me at [phone] by phone or if you have questions or concerns regarding this new plan of care! Sincerely, ALONA Rausch/Roberth CHT <Electronically signed by Kala SAGE/GRETTA Lepe> 12/20/17 1841 CC: Madhav Saba MD; Twan Coy MD MK Signed For Medicare only, by signing this I certify the plan of care. Physicians Signature Date EMERGENCY DEPARTMENT Observed: 12/15/2017 Status: F Source: [facility] [place] SUMMARY 6:15 PM [facility] REPOSITORY [facility] Medical Records Department [address] [place] [address] Emergency Department Summary 12/15/17 1106 MR#: [id number] Acct: [id number] Name: KWAME WEBBER Rep #: [id number] : 1945 72 From: Bolivar Chaudhari MD [...] Plan: Patient will be discharged with 10 [place] and [place]. Instructed to follow-up Dr. Coy in 2 days as previously scheduled. Return to the emergency department for any worsening symptoms. Disposition: To home in improved and stable condition. Impression: 1. Cephalgia. This note was generated with [employer] dictation software. It may contain incorrect words, spelling, and punctuation that were not noted in review of the chart prior to signing ED Disposition - Plan for ED Patient: Chief Complaint: Headache Instructions: ED Cephalgia Unspecified Prescriptions: Hydrocodone Bitart/Apap 5-325 [[place] 5MG-325MG] 1 tablet PO Q4H PRN PRN [...] your Primary Care Provider. Call [facility] ([phone]) or report to the closest Emergency Room. Call 911 if necessary. 12/15/17 1815 <Electronically signed by Bolivar Chaudhari MD> Date Bolivar Chaudhari MD Cosigner Signature (If Indicated): Date CC: Twan Coy MD BRAIN/HEAD WITHOUT Observed: 12/15/2017 Status: F Source: [place] CONTR[place] 10:13 AM [facility]POS[facility] Imaging Services [address] [place] [address] Brain/Head without Contrast MR#: [id number] Acct: [id number] Name: KWAME WEBBER Rep #: [id number] : 1945 F 72 From: Amandeep Dawkins MD PCP: Twan Coy MD Status: REG ER Study: Brain/Head without Contrast Date of Exam: 12/15/17 Exam# [id number] Ordering Dr: Bolivar Chaudhari MD STUDY: CT [...] Amandeep Dawkins MD at 10:46 EDT Tel [phone], Service support , CC: Bolivar Chaudhari MD; Twan Coy MD Sheet Tailer: Signed RE-EVALUATION - PT (1) Observed: 12/07/2017 Status: F Source: [place] 4:47 PM [facility] REPOS[facility] [address] [place] [address]. [address] [place] [address] Fax REEVALUATION / MEDICARE RECERTIFICATION PHYSICAL THERAPY MR#: [id number] Acct: [id number] Name: KWAME WEBBER Rep #: [id number] : 1945 72 From: Susan LARSENT Referring [...] do not hesitate to contact me at [phone] by phone or if you have questions or concerns regarding this new plan of care! Sincerely, Susan You <Electronically signed by Susan You DPT> 12/07/17 9501 CC: Madhav Saba MD; Twan Coy MD ELR Signed For Medicare only, by signing this I certify the plan of care. Physicians Signature Date CARDIOLOGY VISIT Observed: 12/02/2017 Status: F Source: [place] REPORT 7:01 PM [facility] REPOSITORY [facility] [address] [place] [address] OFFICE VISIT Date of Service: 12/02/17 MR#: [id number] Acct: [id number] Name: KWAME WEBBER Rep #: [id number] : 1945 Provider: Scott De La Rosa MD Age/Sex: 72/F Location: [facility] Status: Signed HPI HPI Details: KWAME WEBBER, is a 72 F who presents to the office today for outpatient cardiovascular consultation and establishment of outpatient cardiovascular care for history of underlying CAD, PCI, valvular heart disease, superimposed upon peripheral vascular disease, hyperlipidemia, hypertension, and diabetes mellitus. She has previously been cared for by cardiovascular services in [place], [place]. It appears she has the aforementioned [...] tab 12/02/17 [History Confirmed 12/02/17] [facility] Medical History Nonrheumatic aortic (valve) stenosis (Acute) Pulmonary hypertension (Acute) Nonrheumatic tricuspid (valve) insufficiency (Acute) Nonrheumatic mitral (valve) insufficiency (Acute) Nonrheumatic mitral (valve) prolapse (Acute) CKD (chronic kidney disease) stage 3, GFR 30-59 ml/min (Chronic) Type 2 diabetes mellitus (Chronic) Essential hypertension (Chronic) Carotid artery stenosis (Chronic) Presence of stent in coronary artery (Chronic 1999) Atherosclerotic heart disease of [place] coronary artery without angina pectoris (Chronic) Hyperlipemia [...] AND Plan 1. Atherosclerotic heart disease of [place] coronary artery without angina pectoris I25.10 Plan [...] carotid artery disease status post carotid artery akwukhsqjcyryz-fbmur-krmyk-in approximately 2000. She will continue her follow-up [...] vis,est,level 3 Diagnoses Atherosclerotic heart disease of [place] coronary artery without angina pectoris I25.10 Presence of stent in coronary artery Z95.5 Nonrheumatic aortic (valve) stenosis I35.0 Nonrheumatic mitral valve insufficiency I34.0 Non-rheumatic tricuspid valve insufficiency I36.1 Hyperlipidemia, unspecified hyperlipidemia type E78.5 Hyperlipidemia type: unspecified Essential hypertension I10 Bilateral carotid artery stenosis I65.23 Laterality: bilateral Pulmonary HTN I27.20 Coding Level of Care Code Off vis,est,level 3 Diagnoses Atherosclerotic heart disease of [place] coronary artery without angina pectoris I25.10 Presence [...] Observed: 12/02/2017 Status: F Source: [place] BY [facility] 3:54 PM [facility] REPOSITORY [address] [address] 12 Lead EKG performed by [facility] 12/02/17 1553 MR#: [id number] Acct: [id number] Name: KWAME WEBBER Rep #: [id number] : 1945 72 From: Scott De La Rosa MD Attending Dr: Scott De La Rosa MD Status: DEP AMB Ordering Dr: Scott De La Rosa MD Date: 12/02/17 Location: [facility] Sex: F C Admitted: BMS/12 Lead EKG performed by [facility] ECG Report Interpretation Sinus rhythm with PSVCsLeft axis deviationPossible left anterior fascicular block. Voltage criteria for LVH (R(aVL) Nonspecific ST depression + Nonspecific T-abnormality Poor R wave progressionABNORMAL Electronically signed on 12/02/2017 at 19:03 by Scott De La Rosa Software Version 8610 12/02/171904 Date Scott De La Rosa MD CC: Twan Coy MD Date Dictated: 12/02/17 1553 Date Transcribed: 12/02/171552 Sheet Tailer: PM Signed OT GENERAL EVALUATION Observed: 11/08/2017 Status: F Source: [place] [place] 8:06 AM [facility] REPOSITORY [facility] [address] [place] [address] Fax REHABILITATION SERVICES INITIAL EVALUATION MR#: [id number] Acct: [id number] Name: KWAME WEBBER Rep #: [id number] : 1945 72 From: Kala SAGE/Roberth, LEENAT Referring Dr.: Madhav Saba MD Status: REG RCR Insurance: MEDICARE PART A B Eval Date: [facility] Patient's Visit Information KWAME WEBBER is [...] Wrist: right 60/40 left 45/30 - Strength Chief Power Dispatcher: right 25# left 5# Lateral Pinch: right 4# left 2# Tripod Pinch: right 7# left 1# Strength Comments: pt demo with weak bilateral associate broker and pinch strength - Sensation Sensation Comments: denies - Hand/Wrist Evaluation Total Score of Pain AND Functional Sections: 56 - Goals Goal:: Pt will demo a increase in left associate broker strength to 25# to increase pts ind. [...] to be FAXED BACK to us at [phone] for Medicare purposes. Please let me know [...] 11/05/2017 Status: F Source: [place] 11:08 AM [facility] REPOSITORY [facility] [address] [place] [address]. [address] [place] [address] Fax REEVALUATION / MEDICARE RECERTIFICATION PHYSICAL THERAPY MR#: [id number] Acct: [id number] Name: KWAME WEBBER Rep #: [id number] : 1945 72 From: Susan You DPT [...] do not hesitate to contact me at [phone] by phone or if you have questions or concerns regarding this new plan of care! Sincerely, Susan You <Electronically signed by Susan You DPT> 11/05/17 1108 CC: Madhav Saba MD; Twan Coy MD ELR Signed For Medicare only, by signing this I certify the plan of care. Physicians Signature Date 12 LEAD ELECTROCARDIOGRAM Observed: 09/27/2017 Status: F Source: [facility] [place] 4:10 PM [facility] REPOSITORY [facility] Cardiovascular Services [address] [place] [address] 12 Lead EKG 09/20/17 0647 MR#: [id number] Acct: [id number] Name: KWAME WEBBER Rep #: [id number] : 1945 72 From: Scott De La Rosa MD Attending Dr: Gaston Spears DO Status: [facility] Ordering Dr: Manuel Chacon MD Date: 09/20/17 [place] [facility] Sex: F C Admitted: Test Reason : [...] Abnormal ECG Confirmed by RJ RUIZ, SCOTT ([id number]), video news editor MAYURI BLOUNT ([id number]) on 09/27/2017 4:10:01 PM Referred By: Gaston Spears Confirmed By:SCOTT DE LA ROSA MD 09/27/17 1359 Date Scott De La Rosa MD CC: Manuel Chacon MD; Gaston Spears DO; Twan Coy MD Signed BEDSIDE GLUCOSE Collected: 09/20/2017 Status: F Source: [place] 9:02 AM [facility] REPOSIT[facility] TYPE CODE TESTS RESULT OUT OF REFERENCE UNITS RANGE LAB L501.080 70-110 mg/dL High BEDSIDE GLU 244 Result Comment: MANAGEMENT OF PATIENT CARE PER NURSING PROTOCOL Performed By: #### L501.080 #### [facility] Point of Care [address] [facility] [place] [address] OPERATIVE REPORT Observed: 09/20/2017 Status: F Source: [place] 8:15 AM [facility] REPOSITORY [facility] Medical Records Department [address] [place] [address] Operative Report 09/20/17 0812 MR#: [id number] Acct: [id number] Name: KWAME WEBBER Rep #: [id number] : 1945 72 From: Gaston Spears DO PCP: Twan Coy MD Status: REG [facility] Y Location: [place] [address] Report of Operation Date of Procedure: 09/20/17 Pre-Operative Diagnosis: Distal radius fracture left extra-articular Post-Operative Diagnosis: Same Surgery/Procedure Performed:: Open reduction with internal fixation of left distal radius Description of Surgical Findings:: Extra-articular displaced distal radius fracture machine molder squeeze: Jani Landon Type of Anesthesia:: General Anesthesiologist: [...] of the radius and retracted medially. Wheat Lisle retractor was then placed exposing the volar [...] the recovery room in stable condition. Physician payroll and benefits assistant was integral in all portions of this procedure. They assisted with positioning the patient, draping the extremity, holding retractors, closing the wound, and applying the dressing. This was all done under my direct supervision. The physician payroll and benefits assistant was essential for a successful, efficient [...] 09/20/2017 Status: F Source: [place] 8:12 AM [facility] REPOSITORY [facility] Medical Records Department [address] [facility] [place] [address] Instructions for Home/Discharge Instructions 09/20/17810 MR#: [id number] Acct: [id number] Name: KWAME WEBBER Rep #: [id number] : 1945 72 From: Gaston Spears DO PCP: Twna Coy MD Status: REG [facility] Discharge Diet: No Restrictions Discharge Activity: May [...] mg PO DAILY 09/13/17 Hydrocodone Bitart/Apap 5-325 [[place] 5MG-325MG] 1 tab PO Q6H PRN PRN [...] 09/20/2017 Status: F Source: [place] 6:46 AM [facility] REPOSIT[facility] TYPE CODE TESTS RESULT OUT OF RANGE REFERENCE UNITS LAB L300.4150 11.7-14.9 SECONDS Normal PROTIME 12.9 LAB L300.4200 Normal INR 1.0 Performed By: #### L300.3900, L300.4310 #### [place] [facility] [address] [place], [place], [address] PARTIAL THROMBOPLAST Collected: 09/20/2017 Status: F Source: [place] TIME 6:46 AM [facility] REPOSIT[facility] TYPE CODE TESTS RESULT OUT OF RANGE REFERENCE UNITS LAB L300.4310 24.1-36.2 Seconds Normal PTT 26.0 Performed By: #### L300.3900, L300.4310 #### [facility] [address] [place], [address] BEDSIDE GLUCOSE Collected: 09/20/2017 Status: F Source: [facility] [place] 6:31 AM [facility] REPOSIT[facility] TYPE CODE TESTS RESULT OUT OF REFERENCE UNITS RANGE LAB L501.080 70-110 mg/dL High BEDSIDE GLU 234 Result Comment: MANAGEMENT OF PATIENT CARE PER NURSING PROTOCOL Performed By: #### L501.080 #### [facility] Point of Care [address] [place] [address] WRIST MIN 3 VIEWS Observed: 09/20/2017 Status: F Source: [facility] [place] 5:54 AM [facility] REPOSITORY [facility] Imaging Services [address] [address] Wrist min 3 Views MR#: [id number] Acct: [id number] Name: KWAME WEBBER Rep #: [id number] : 1945 F 72 From: Amandeep Dawkins MD PCP: Twan Coy MD Status: [facility] Study: Wrist min 3 Views Date of Exam: 09/20/17 Exam# [id number] Ordering Dr: Gaston Spears DO STUDY: X-RAY [...] Amandeep Dawkins MD at 14:31 EDT Tel [phone], Service support , CC: Gaston Spears DO; Twan Coy MD Sheet Tailer: Signed EMERGENCY DEPARTMENT Observed: 09/13/2017 Status: F Source: [place] SUMMARY 5:08 AM [facility] REPOSITORY [facility] Medical Records Department [address] [place] [address] Emergency Department Summary 09/13/17 0319 MR#: [id number] Acct: [id number] Name: KWAME WEBBER Rep #: [id number] : 1945 72 From: Ted Yang MD [...] going to need operative fixation. I did certified alcohol drug counselor her on signs and symptoms of compartment syndrome and reasons to return. She will be discharged home with analgesics and orthopedic follow-up. Treatment Plan: [] Disposition: Discharge Impression: 1. Distal radius fracture of the left wrist 2. Hematoma block 3. Fracture reduction 4. Splint by ED physician This note was generated with [employer] dictation software. It may contain incorrect words, spelling, and punctuation that were not noted in review of the chart prior to signing ED Disposition - Plan for ED Patient: Chief Complaint: Upper Extremity Injury Instructions: ED Fx Colles Wrist Redu Requ Prescriptions: Hydrocodone Bitart/Apap 5-325 [[place] 5MG-325MG] 1 tab PO Q6H PRN PRN [...] your Primary Care Provider. Call [facility] ([phone]) or report to the closest Emergency Room. Call 911 if necessary. 09/13/17 0508 <Electronically signed by Ted Yang MD> Date Ted Yang MD Cosigner Signature (If Indicated): Date CC: Twan Coy MD WRIST MIN 3 VIEWS Observed: 09/13/2017 Status: F Source: [place] 4:17 AM [facility] REPOSIT[facility] Imaging Services [address] [place] [address] Wrist min 3 Views MR#: [id number] Acct: [id number] Name: KWAME WEBBER Rep #: [id number] : 1945 F 72 From: Miguel Giang PCP: Twan Coy MD Status: REG ER Study: Wrist min 3 Views Date of Exam: 09/13/17 Exam# [id number] Ordering Dr: Ted Yang MD STUDY: X-RAY [...] CC: Ted Yang MD; Twan Coy MD Sheet Tailer: Signed WRIST MIN 3 VIEWS Observed: 09/13/2017 Status: F Source: [place] 3:17 AM [facility]POS[facility] Imaging Services [address] [place] [address] Wrist min 3 Views MR#: [id number] Acct: [id number] Name: KWAME WEBBER Rep #: [id number] : 1945 F 72 From: Miguel Giang PCP: Twan Coy MD Status: REG ER Study: Wrist min 3 Views Date of Exam: 09/13/17 Exam# [id number] Ordering Dr: Ted Yang MD STUDY: X-RAY [...] CC: Ted Yang MD; Twan Coy MD Sheet Tailer: Signed RE-EVALUATION - PT (1) Observed: 09/08/2017 Status: F Source: [place] 9:25 AM [facility] [address] [place] [address]. [address] [place] [address] Fax REEVALUATION / MEDICARE RECERTIFICATION PHYSICAL THERAPY MR#: [id number] Acct: [id number] Name: KWAEM WEBBER Rep #: [id number] : 1945 72 From: Susan You DPT [...] her balance is improved. She went to [place] and fell 2x- slid out of the [...] do not hesitate to contact me at [phone] by phone or if you have questions or concerns regarding this new plan of care! Sincerely, Susan You <Electronically signed by Susan You DPT> 09/08/17 0925 CC: Madhav Saba MD; Twan Coy MD ELR Signed For Medicare only, by signing this I certify the plan of care. Physicians Signature Date PT COMMUNICATION Observed: 08/17/2017 Status: F Source: [place] 9:31 AM [facility] [address] [facility]. [address] [place] [address] Fax REHABILITATION SERVICES PROGRESS NOTE MR#: [id number] Acct: [id number] Name: KWAME WEBBER Rep #: [id number] : 1945 72 From: Maurizio Fairbanks DPT, OCS, CSCS Referring Dr.: Madhav Saba MD Status: REG RCR Insurance: MEDICARE PART A B AARP PT Communication Note 08/16/[address] Madhav Saba MD , Thank you for the referral of Kwame Webber to [facility] for balance assessment. I have enclosed a [...] Maurizio Fairbanks, YAQUELIN, OC Contact Information 08/17/17 2668 <Electronically signed by Maurizio Fairbanks DPT, OCS, CSCS> Date Maurizio Fairbanks DPT, OCS, CSCS Cosigner Signature (if applicable): Date CC: Madhav Saba MD; Twan Coy MD Signed For Medicare only, by signing this I certify the plan of care. Physicians Signature Date DOWNTIME REPORT Observed: 08/12/2017 Status: F Source: [place] 2:01 PM [facility] Medical Records Department [address] [place] [address] Downtime Report MR#: [id number] Acct: [id number] Name: KWAME WEBBER Rep #: [id number] : 1945 72 From: Kishan Blount PCP: Twan Coy MD Status: REG CLI This patient was seen during an EMR downtime July 26, 2017 - August 02, 2017. This patient may have a combination of paper and electronic documentation or all paper documentation. All documentation is viewable within the e-chart portion of [facility] for each patient visit. INITAL EVALUATION (1) Observed: 08/09/2017 Status: F Source: [place] - PT 11:06 AM [facility] [address]. [address] [place] [address] Fax REHABILITATION SERVICES INITIAL EVALUATION MR#: [id number] Acct: [id number] Name: KWAME WEBBER Rep #: [id number] : 1945 72 From: Susan You DPT Referring Dr.: Madhav Saba MD Status: REG RCR Insurance: MEDICARE PART A B [facility] Patient's Visit Information KWAME WEBBER is [...] to be FAXED BACK to us at [phone] for Medicare purposes. Please let me know [...] Status: F Source: [place] ([facility]) 9:32 AM [facility] Order Comment: Is Patient Taking Vitamins or Folic Acid Supplements? N TYPE CODE TESTS RESULT OUT OF RANGE REFERENCE UNITS LAB L501.9520 0.358-3.74 uIU/mL Normal TSH 3.66 Performed By: #### L501.9520, L505.7010, L506.0250 #### [place] [facility] [address] [place], [address] RHEUMATOID FACTOR Collected: 07/30/2017 Status: F Source: [place] 9:32 AM [facility] Order Comment: Is Patient Taking Vitamins or Folic Acid Supplements? N TYPE CODE TESTS RESULT OUT OF RANGE REFERENCE UNITS LAB L505.7010 <15 IU/mL Normal RHEUMATOID FAC < 10.0 Performed By: #### L501.9520, L505.7010, L506.0250 #### [facility] [address] [place], [address] FOLATES, (FOLIC ACID) Collected: 07/30/2017 Status: F Source: [place] 9:32 AM [facility] Order Comment: Is Patient Taking Vitamins or Folic Acid Supplements? N TYPE CODE TESTS RESULT OUT OF RANGE REFERENCE UNITS LAB L506.0250 3.1-55.4 ng/mL Normal FOLATES 42.00 Performed By: #### L501.9520, L505.7010, L506.0250 #### [facility] [address] [place], [address] ERYTHROCYTE SED RATE Collected: 07/30/2017 Status: F Source: [place] 9:32 AM [facility] TYPE CODE TESTS RESULT OUT OF RANGE REFERENCE UNITS LAB L102.0000 0-30 mm/hr Normal SED RATE 13 Performed By: #### L101.9900 #### [facility] [address] [place], [address] VITAMIN B12 Collected: 07/30/2017 Status: F Source: [place] 9:32 AM [facility] TYPE CODE TESTS RESULT OUT OF RANGE REFERENCE UNITS LAB L503.0105 211-911 pg/mL Normal Vitamin B12 637 Performed By: #### L503.0105, L3890.6005 #### [facility] [address] [place], [address] HIV - [facility] Collected: 07/30/2017 Status: F Source: [place] 9:32 AM [facility] TYPE CODE TESTS RESULT OUT OF RANGE REFERENCE UNITS LAB L3890.6005 Nonreactive Normal HIV - [facility] Non-Reactive Performed By: #### L503.0105, L3890.6005 #### [facility] [address] [place], [address] ANTINUCLEAR ANTIBODIES Collected: 07/30/2017 Status: F Source: [place] DIRECT 9:32 AM [facility] TYPE CODE TESTS RESULT OUT OF RANGE REFERENCE UNITS LAB L3100.5475 Normal POLA-DIRECT Result Comment: TEST RESULT UNITS REF INTERVAL Antiextractable Nuclear Ag PROCESS DESIGN CHEMICAL ENGINEER Antibodies <0.2 AI 0.0 - 0.9 Romero Antibodies <0.2 AI 0.0 - 0.9 Antinuclear Antibodies Direct POLA Direct Negative Negative [facility] ORIGINAL REPORT ON FILE IN LAB CONTAINS ADDITIONAL TEST SITE INFORMATION. Performed By: #### L3100.5475 #### [facility] (refer to report for specific site) refer to report for address and phone number HEPATITIS C ANTIBODIES Collected: 07/30/2017 Status: F Source: [place] 9:32 AM [facility] Order Comment: Specimen Comment: A duplicate [...] with a HCV Nucleic Acid Amplification test (678577). Performed at: [address] [id number] Staff Appraiser: Pierce Mccormack PhD, Phone: [phone] Performed By: #### L3100.0625, L3100.5231, L3200.2587 #### [facility] (refer to report for specific site) refer to report for address and phone number PROTEIN ELECTROPH, S Collected: 07/30/2017 Status: F Source: [place] 9:32 AM [facility] Order Comment: Specimen Comment: A duplicate [...] scan will follow via computer, mail, or floral designer delivery. LAB L3100.4340 . Normal NOTE: Comment Result Comment: The SPE pattern appears essentially unremarkable. Evidence of monoclonal protein is not apparent. Performed By: #### L3100.0625, L3100.3450, L3200.1275 #### [facility] (refer to report for specific site) refer to report for address and phone number IMMUNOFIXATION, SERUM Collected: 07/30/2017 Status: F Source: [place] 9:32 AM [facility] Order Comment: Specimen Comment: A duplicate report has been generated due to demographic Specimen Comment: updates. TYPE CODE TESTS RESULT OUT OF RANGE REFERENCE UNITS LAB L3200.3303 070-5914 mg/dL Low IMMUNO G 683 LAB L3200.1400 64-422 mg/dL Normal IMMUNO A 218 LAB L3200.1500 26-217 mg/dL Normal IMMUNOGL M 67 LAB L3200.1505 . Normal JAZIEL RESULT,S Comment Result Comment: No monoclonality detected. Performed By: #### L3100.0625, L3100.3450, L3200.1275 #### [facility] (refer to report for specific site) refer to report for address and phone number EMERGENCY DEPARTMENT Observed: 07/26/2017 Status: F Source: [place] SUMMARY 12:18 AM [facility] Medical Records Department [address] [place] [address] Emergency Department Summary 07/25/172012 MR#: [id number] Acct: [id number] Name: KWAME WEBBER Rep #: [id number] : 1945 72 From: Dash Arzate MD [...] toe contusion This note was generated with [employer] dictation software. It may contain incorrect words, [...] your Primary Care Provider. Call [facility] ([phone]) or report to the closest Emergency Room. Call 911 if necessary. 07/26/17 0018 <Electronically signed by Dash Arzate MD> Date Dash Arzate MD Cosigner Signature (If Indicated): Date CC: Twan Coy DISCHARGE INSTRUCTION Observed: 07/26/2017 Status: F Source: [place] 12:18 AM [facility] Medical Records Department [address] [place] [address] Discharge Instruction 07/25/172017 MR#: [id number] Acct: [id number] Name: KWAME WEBBER Rep #: [id number] : 1945 72 From: Dash Arzate MD PCP: Twan Coy Status: [facility] ED Disposition - Plan for ED [...] problems, contact your Primary Care Provider. Call [facility] ([phone]) or report to the closest Emergency Room. Call 911 if necessary. 07/26/17 0018 <Electronically signed by Dash Arzate MD> Date Dash Arzate MD Cosigner Signature (If Indicated): Date CC: Twan Coy CBC W/DIFF, AUTOMATED Collected: 07/25/2017 Status: F Source: [place] 7:35 PM [facility] TYPE CODE TESTS RESULT OUT OF [...] Lymph 1.27 Performed By: #### L100.0100 #### [facility] [address] [place], [address] BASIC METABOLIC Collected: 07/25/2017 Status: F Source: [place] PROFILE ([facility]) 7:35 PM [facility] TYPE CODE TESTS RESULT OUT OF [...] GAP 9 Performed By: #### L500.2500 #### [facility] [address] [place], [address] BRAIN/HEAD WITHOUT Observed: 07/25/2017 Status: F Source: [place] CONTRAST 7:34 PM [facility] Imaging Services [address] [place] [address] Brain/Head without Contrast MR#: [id number] Acct: [id number] Name: KWAME WEBBER Rep #: [id number] : 1945 F 72 From: Carlos Salcedo MD PCP: Twan Coy Status: REG ER Study: Brain/Head without Contrast Date of Exam: 07/25/17 Exam# [id number] Ordering Dr: Dash Arzate MD STUDY: CT [...] , CC: Dash Arzate MD; Twan Coy Sheet Tailer: Signed BRAIN W/WO CONTRAST Observed: 07/06/2017 Status: F Source: [place] 12:52 PM [facility] Imaging Services [address] [address] Brain W/WO Contrast MR#: [id number] Acct: [id number] Name: KWAME WEBBER Rep #: [id number] : 1945 F 72 From: Domenic Padilla PCP: Twan Coy Status: REG CLI Study: Brain W/WO Contrast Date of Exam: 07/06/17 Exam# [id number] Ordering Dr: KALLIE DEY STUDY: MRI BRAIN [...] support , CC: KALLIE DEY; Twan Coy Sheet Tailer: Signed BASIC METABOLIC Collected: 06/28/2017 Status: F Source: [place] PROFILE (BMP) 10:13 AM [facility] TYPE CODE TESTS RESULT OUT OF [...] GAP 9 Performed By: #### L500.2500 #### [facility] [address] [place], [address] BASIC METABOLIC Collected: 06/10/2017 Status: F Source: [place] PROFILE (BMP) 9:41 AM [facility] Order Comment: BUN,CREATININE FOR DR DEY [...] GAP 9 Performed By: #### L500.2500 #### [facility] [address] [place] [address]. [place], [place], [id number] RENAL PROFILE Collected: 05/19/2017 Status: F Source: [place] 11:14 AM [facility] TYPE CODE TESTS RESULT OUT OF [...] CO2 32.0 Performed By: #### L500.3600 #### [facility] [address] [facility] [place], [place], [address] CBC-COMPLETE BLOOD CNT Collected: 05/19/2017 Status: F Source: [place] NO DIFF 11:14 AM [facility] TYPE CODE TESTS RESULT OUT OF [...] MPV 11.0 Performed By: #### L100.0500 #### [facility] [address] [facility] [place], [place], [address] VITAMIN D,25 HYDROXY Collected: 05/19/2017 Status: F Source: [place] 11:14 AM [facility] TYPE CODE TESTS RESULT OUT OF RANGE REFERENCE UNITS LAB L506.1000 29.95-100.01 ng/mL Normal Vitamin D 58.1 25-OH Result Comment: Vitamin D 25(OH) Status Range Deficiency <20 ng/mL (50nmol/L) Insuffciency 20 - 30 ng/mL (50 - 75 nmol/L) Sufficiency 30 - 100 ng/mL (75 - 250 nmol/L) Toxicity >100 ng/mL (>250 nmol/L) Performed By: #### L506.1000 #### [facility] [address] [place], [address] PTHIN Collected: 05/19/2017 Status: F Source: [place] 11:14 AM [facility] TYPE CODE TESTS RESULT OUT OF RANGE REFERENCE UNITS LAB L509.1000 18.4-80.1 pg/mL Normal PTHIN 41.9 Result Comment: Please Note: PTH INTACT METHOD AND REFERENCE RANGE CHANGE Effective 02/10/2017. Performed By: #### L509.1000 #### [facility] [address] [place], [place], [address] PROTEIN+CREATININE Collected: Status: F Source: [place] RATIO,URINE 05/19/2017 11:14 AM [facility] RE[facility] Order Comment: PATIENT UNABLE TO VOID. BRINGING SPECIMEN BACK IN. PT RETURNED AT 1700 WITH URINE/RHICKS TYPE CODE TESTS RESULT OUT OF RANGE REFERENCE UNITS LAB L501.1200 NO RANGE EST. mg/dL Normal UR CREAT 95.10 LAB L501.1930 <11.9 mg/dL Normal 9.0 PROTEIN,UR.R AN. LAB L501.1940 0-200 mg/g CRE Normal PROT:CRE 95 RATIO Performed By: #### L501.0900 #### [facility] [address] [place], [address] COMPREHENSIVE METABOLIC Collected: 04/28/2017 Status: F Source: [place] PROFIL 4:52 PM [facility] TYPE CODE TESTS RESULT OUT OF [...] 10 Performed By: #### L500.4050, L501.9520 #### [facility] [address] [place], [address] THYROID STIM HORMONE Collected: 04/28/2017 Status: F Source: [place] ([facility]) 4:52 PM [facility] TYPE CODE TESTS RESULT OUT OF RANGE REFERENCE UNITS LAB L501.9520 0.358-3.74 uIU/mL Normal TSH 2.14 Performed By: #### L500.4050, L501.9520 #### [facility] [address] [place], [address] ALLERGIES ALLERGIES DATE TYPE / CODE NAME / CODE REACTION SEVERITY SOURCE 03/16/2018 Drug Penicillins/[id number] Rash Unknown [place] Allergy/416 476(RXNORM) Community 993258([facility] ED CT) Repository 03/16/2018 Drug adhesive Rash Unknown [place] Allergy/416 tape/[id number](RXN Community 622323([facility] ED CT) Repository 12/03/2016 DRUG LEVOFLOXACIN Mental g [facility] INGREDI/419 Other [place] 183551([facility] ED CT) /[id number] LEVOFLOXACIN [facility] Monitor System CT) Repository ENCOUNTERS ENCOUNTERS ADMIT/DISCHARGE ACCOUNT NUMBER ADMITTING ENCOUNTER LOCATION SOURCE CLASS 03/16/2018/03/16/19 [id number] Ambulatory BMSBuilding: [place] [facility] Repository 02/07/2018/02/08/20 [id number] Ambulatory [address] ding:SDC Repository 02/07/2018/02/08/20 [id number] Ambulatory BMSBuilding: [place] 18 BMS.CF.[facility] Repository 02/02/2018 [id number] Ambulatory BMSBuilding: [place] [facility] Repository 01/26/2018 [id number] Ambulatory [facility] ding:PT Repository 01/25/2018/01/26/20 [id number] Ambulatory BMSBuilding: [place] 18 [facility] Repository 01/24/2018 [id number] Ambulatory BMSBuilding: [place] BMS.[facility] Repository 01/24/2018 [id number] Ambulatory [facility] ding:[facility] Repository 12/29/2017/12/30/19 [id number] Ambulatory [address] ding:PT Repository 12/25/2017/12/27/19 [id number] [place], Inpatient [place] 18 [facility] [place] ding:PCURoom Repository : IMS155Huv: 1 12/25/2017 [id number] [place], Ambulatory BMSBuilding: [place] Aranda BMS.[facility] Repository 12/25/2017/12/27/19 [id number] Ambulatory BMSBuilding: [place] 18 [facility] Repository 12/25/2017 [id number] [place], Ambulatory BMSBuilding: [place] Aranda BMS.[facility] Repository 12/25/2017 [id number] [place], Ambulatory BMSBuilding: [place] Aranda BMS.[facility] Repository 12/23/2017 [id number] Ambulatory [facility] ding:LAB Repository 12/15/2017/12/16/19 [id number] Emergency [address] ding:ED Repository 12/02/2017/12/03/19 [id number] Ambulatory BMS[facility]: [place] [facility]ository 12/01/2017 [id number] [facility]MS[facility]: [place] [facility] Repository 09/20/2017/09/21/19 [id number] Ambulatory [address] ding:SDC Repository 09/20/2017 [id number] Ambulatory BMSBuilding: [place] [facility] Repository 09/13/2017/09/14/19 [id number] Emergency [address] ding:ED Repository 07/30/2017 [id number] Ambulatory [facility] ding:LAB Repository 07/25/2017/07/26/19 [id number] Emergency [address] ding:ED Repository 07/06/2017 [id number] Ambulatory [facility] ding:MRI Repository 06/28/2017 [id number] Ambulatory [facility] ding:LAB Repository 06/17/2017 [id number] Ambulatory [facility] Repository 06/17/2017 [id number] Ambulatory [facility] MEDICAL Repository CENTERBuildi ng:[facility] 06/10/2017 [id number] Ambulatory [facility] ding:LAB Repository 05/19/2017 [id number] Ambulatory [facility] ding:LAB Repository 04/28/2017 [id number] [facility] ding:BFHLAB Repository PAYERS PAYERS ENCOUNTER GUARANTOR PAYER SUBSCRIBER SOURCE 03/16/2018 KWAME A Primary KWAME A [place] [id number] Insurance:MEDICARE WALTONDOB: Community INVERNESS PART A BPolicy Number: [id number] [id number] Repository 10504Kvn: (330) Date:2018-03-07 [phone] () 03/16/2018 Secondary KWAME A [place] Insurance:AARPPolicy WALTONDOB: Community Number: [id number] [id number] Repository Date:2525-21-24[address]XB[address], [place] [address]NN: 03/16/2018 Tertiary NOT GIVENUNK [place] Insurance:SELF PAY [facility] Effective Repository Date:2018-03-09 02/07/2018 [place] Primary [place]WAME A [place] [id number] Insurance:MEDICARE WALTONDOB: Community INVERNESS PART A BPolicy Number: [id number], [place] [id number] Repository [address]Gos: (330) Date:2018-01-25 [phone] () 02/07/2018 Secondary KWAME A [place] Insurance:AARPPolicy WALTONDOB: Community Number: [id number] [id number] Repository Date:2109-75-73[address]ESLKUPQ, [place] [address]PF: 02/07/2018 Tertiary NOT GIVENUNK [place] Insurance:SELF PAY [facility] Number: Effective Repository Date:2018-02-07 02/07/2018 [place] Primary KWAME A [place] [id number] Insurance:MEDICARE WALTONDOB: Community INVERNESS PART A BPolicy Number: [id number], [place] [id number] Repository [address]Aac: (330) Date:2018-01-25 () 02/07/2018 Secondary KWAME A [place] Insurance:AARPPolicy WALTONDOB: Community Number: [id number] [id number] Repository Date:3216-05-44[address]TZGITQX, [place] [address]QZ: 02/07/2018 Tertiary NOT GIVENUNK [place] Insurance:SELF PAY [facility] Number: Effective Repository Date:2018-02-07 02/02/2018 [place] Primary KWAME A [place] [id number] Insurance:MEDICARE WALTONDOB: Community INVERNESS PART A BPolicy Number: [id number], [place] [id number] Repository [address]Suh: (330) Date:2018-01-25510 () 02/02/2018 Secondary KWAME A [place] Insurance:AARPPolicy WALTONDOB: Community Number: [id number] [facility] [id number] Repository Date:8186-15-80[address]WGESZTW, [place] [address]ZU: 02/02/2018 Tertiary NOT GIVENUNK [place] Insurance:SELF PAY [facility] Number: Effective Repository Date:2018-02-02 01/26/2018 [place] Primary KWAME A [place] [id number] Insurance:MEDICARE WALTONDOB: Community INVERNESS PART A BPolicy Number: [id number], [place] [id number] Repository [address]Ico: (330) Date:2008-04-22 () 01/26/2018 Secondary KWAME A [place] Insurance:AARPPolicy WALTONDOB: Community Number: [id number] Hospital [id number] Repository Date:9239-06-92[address]WXTFYYO, [place] [address]FC: 01/26/2018 Tertiary NOT GIVENUNK [place] Insurance:SELF PAY Community [facility] Number: Effective Repository Date:2018-01-21 01/25/2018 KWAME A Primary KWAME A [place] [id number] Insurance:MEDICARE WALTONDOB: Community INVERNESS PART A BPolicy Number: [id number], [place] [id number] Repository [address]Mly: (283) Date:2017-12-28365 () 01/25/2018 Secondary KWAME A [place] Insurance:AARPPolicy WALTONDOB: Community Number: [id number] Hospital [id number] Repository Date:1391-84-62[address]XDMF, [place] [address]OH: 01/25/2018 Tertiary NOT GIVENUNK [place] Insurance:SELF PAY [facility] Number: Effective Repository Date:2018-01-24 01/24/2018 [place] Primary KWAME A [place] [id number] Insurance:MEDICARE WALTONDOB: Community INVERNESS PART A BPolicy Number: [id number], [place] [id number] Repository [address]Ize: (140) Date:2018-01-201420 () 01/24/2018 Secondary KWAME A [place] Insurance:AARPPolicy WALTONDOB: Community Number: [id number] Hospital [id number] Repository Date:0915-77-03[address]AUAGK, [place] [address]HP: 01/24/2018 Tertiary NOT GIVENUNK [place] Insurance:SELF PAY [facility] Number: Effective Repository Date:2018-01-24 01/24/2018 [place] Primary KWAME A [place] [id number] Insurance:MEDICARE WALTONDOB: Community INVERNESS PART A BPolicy Number: [id number], [place] [id number] Repository [address]Zdy: (573) Date:2018-01-208882 () 01/24/2018 Secondary KWAME A [place] Insurance:AARPPolicy WALTONDOB: Community Number: [id number] Hospital [id number] Repository Date:2787-29-11[address]URQDEQS, [place] [address]ZI: 01/24/2018 Tertiary NOT GIVENUNK [place] Insurance:SELF PAY [facility] Number: Effective Repository Date:2018-01-20 12/29/2017 [place] Primary KWAME A [place] [id number] Insurance:MEDICARE WALTONDOB: Community INVERNESS PART A BPolicy Number: [id number], [place] [id number] Repository 32731Etd: (823) Date:2008-04-22 [phone] () 12/29/2017 Secondary KWAME A James Insurance:AARPPolicy WALTONDOB: Community Number: [id number] [id number] Repository Date:6961-92-22[address], [place] [address]WY: 12/29/2017 Tertiary NOT GIVENUNK [place] Insurance:SELF PAY [facility]: Effective Repository Date:2017-08-04 12/25/2017 [place] KWAME A Downey [id number] Insurance:MEDICARE WALTONDOB: Community [place] PART A BPolicy Number: [id number] [id number] Repository 86187Zxi: (330) Date:2017-12-24 [phone] () 12/25/2017 Secondary KWAME A James Insurance:AARPPolicy WALTONDOB: Community Number: [id number] [facility] [id number] Repository Date:1086-98-31[address], [place] [address]YZ: 12/25/2017 Tertiary NOT GIVENUNK [place] Insurance:SELF PAY Community [facility] Number: Effective Repository Date:2017-12-24 12/25/2017 [place] KWAME A James [id number] Insurance:MEDICARE WALTONDOB: Community [place] PART A BPolicy Number: [id number], [place] [id number] Repository 56744Izx: (330) Date:2017-12-24 () 12/25/2017 Secondary KWAME A James Insurance:AARPPolicy WALTONDOB: Community Number: [id number] [id number] Repository Date:9811-11-86[address], [place] [address]ON: 12/25/2017 Tertiary NOT GIVENUNK [place] Insurance:SELF PAY [facility] Number: Effective Repository Date:2017-12-25 12/25/2017 [place] KWAME A Downey [id number] Insurance:MEDICARE WALTONDOB: Community [place] PART A BPolicy Number: [id number], [place] [id number] Repository 54604Tvt: (330) Date:2017-12-24355 () 12/25/2017 Secondary KWAME A Downey Insurance:AARPPolicy WALTONDOB: Community Number: [id number] [facility] [id number] Repository Date:4994-15-66[address]XRSOBKR, [place] [address]YM: 12/25/2017 Tertiary NOT GIVENUNK [place] Insurance:SELF PAY [facility] Number: Effective Repository Date:2017-12-25 12/25/2017 [place] S Primary KWAME A James [id number] Insurance:MEDICARE WALTONDOB: Community [place] PART A BPolicy Number: [id number], [place] [id number] Repository 34236Mra: (830) Date:2017-12-24600 () 12/25/2017 Secondary KWAME A Downey Insurance:AARPPolicy WALTONDOB: Community Number: [id number] [facility] [id number] Repository Date:1587-99-51[address]SRFGMLJ, [place] [address]ZR: 12/25/2017 Tertiary NOT GIVENUNK James Insurance:SELF PAY Community [facility] Number: Effective Repository Date:2017-12-24 12/25/2017 [place] WKAME A James [id number] Insurance:MEDICARE WALTONDOB: Community [place] PART A BPolicy Number: [id number], [place] [id number] Repository 57072Bue: (330) Date:2017-12-24 [phone] () 12/25/2017 Secondary KWAME A Downey Insurance:AARPPolicy WALTONDOB: Community Number: [id number] [facility] [id number] Repository Date:5666-20-90OV [facility] [address]UWY, [place] [address]PJ: 12/25/2017 Tertiary NOT GIVENUNK [place] Insurance:SELF PAY [facility] Number: Effective Repository Date:2017-12-25 12/23/2017 [place] KWAME A James [id number] Insurance:MEDICARE WALTONDOB: Community [place] PART A BPolicy Number: [id number], [place] [id number] Repository 20523Arz: (943) Date:2017-12-23677 () 12/23/2017 Secondary KWAME A Downey Insurance:AARPPolicy WALTONDOB: Community Number: [id number] [facility] [id number] Repository Date:3232-09-10[address]MLHURCT, [place] [address]XW: 12/23/2017 Tertiary NOT GIVENUNK James Insurance:SELF PAY [facility] Number: Effective Repository Date:2017-12-23 12/15/2017 [place] KWAME A James [id number] Insurance:MEDICARE WALTONDOB: Community [place] PART A BPolicy Number: [id number], [place] [id number] Repository 68052Fpe: (330) Date:2017-12-15 [phone] () 12/15/2017 Secondary KWAME A Downey Insurance:AARPPolicy WALTONDOB: Community Number: [id number] [place] [address] [id number] Repository Date:8100-12-31[address]AM[place]WT, [place] [address]XX: 12/15/2017 Tertiary NOT GIVENUNK James Insurance:SELF PAY [facility]: Effective Repository Date:2017-12-15 12/02/2017 [place] Primary KWAME A Downey [id number] Insurance:MEDICARE WALTONDOB: Community [place] PART A BPolicy Number: [id number], [place] [id number] Repository 41913Ajp: (946) Date:2017-11-09 [phone] () 12/02/2017 Secondary KWAME A Downey Insurance:AARPPolicy WALTONDOB: Community Number: [id number] [facility] [id number] Repository Date:4634-79-74[address]BCBUNMK, [place] [address]GN: 12/02/2017 Tertiary NOT GIVENUNK James Insurance:SELF PAY [facility] Number: Effective Repository Date:2017-12-02 12/01/2017 [place] Primary KWAME A Downey [id number] Insurance:MEDICARE WALTONDOB: Community [place] PART A BPolicy Number: [id number], [place] [id number] Repository 82942Xva: (330) Date:2017-12-01 [phone] (HP) 12/01/2017 Secondary KWAME A Downey Insurance:AARPPolicy WALTONDOB: Community Number: [id number] [facility] [id number] Repository Date:9097-42-79SQ [facility] [address]FB, [place] [address]XC: 12/01/2017 Tertiary NOT GIVENUNK James Insurance:SELF PAY [facility] Number: Effective Repository Date:2017-12-01 09/20/2017 [place] Primary KWAME A James [id number] Insurance:MEDICARE WALTONDOB: Community [place] PART A BPolicy Number: [id number], [place] [id number] Repository 58886Zbw: (962) Date:2017-09-16 [phone] () 09/20/2017 Secondary KWAME A Downey Insurance:AARPPolicy WALTONDOB: Community Number: [id number] Hospital [id number] Repository Date:3159-30-67[address]ZBSWLYV, [place] [address]VC: 09/20/2017 Tertiary NOT GIVENUNK [place] Insurance:SELF PAY [facility] Number: Effective Repository Date:2017-09-16 09/20/2017 [place] Primary KWAME A Downey [id number] Insurance:MEDICARE [facility]: Community [place] PART A BPolicy Number: [id number], [place] [id number] Repository 75438Lmf: (330) Date:2017-09-165721 () 09/20/2017 Secondary KWAME A James [facility] SPURLOCKVILLEDOB: Community Number: [id number] [facility] [id number] Repository Date:2342-81-89[address]GHFSSJP, [place] [address]KX: 09/20/2017 Tertiary NOT GIVENUNK James Insurance:SELF PAY [facility] Number: Effective Repository Date:2017-09-20 09/13/2017 [place] Primary KWAME A Downey [id number] Insurance:MEDICARE WALTONDOB: Community [place] PART A BPolicy Number: [id number], [place] [id number] Repository 12183Ylv: (330) Date:2017-09-13 [phone] () 09/13/2017 Secondary KWAME A Downey [facility] Number: [id number] [facility] [id number] Repository Date:6391-43-19[address]HXJMMXW, [place] [address]PD: 09/13/2017 Tertiary NOT GIVENUNK James Insurance:SELF PAY [facility] Number: Effective Repository Date:2017-09-13 07/30/2017 [place] Primary KWAME A Downey [id number] Insurance:MEDICARE WALTONDOB: Community [place] PART A BPolicy Number: [id number], [place] [id number] Repository 57239Fsc: (330) Date:2017-07-30 () 07/30/2017 Secondary KWAME A Downey Insurance:AARPPolicy WALTONDOB: Community Number: [id number] Hospital [id number] Repository Date:7655-73-06[address]ZDHEYGL, [place] [address]YI: 07/30/2017 Tertiary NOT GIVENUNK [place] Insurance:SELF PAY [facility] Number: Effective Repository Date:2017-07-30 07/25/2017 [place] Primary KWAME A Downey [id number] Insurance:MEDICARE WALTONDOB: Community [place] PART A BPolicy Number: [id number], [place] [id number] Repository 92888Ubs: (330) Date:2017-07-25 () 07/25/2017 Secondary KWAME A Downey Insurance:AARPPolicy WALTONDOB: Community Number: [id number] Hospital [id number] Repository Date:0381-51-15JA [address]CBTS[place], [place] [address]QJ: 07/25/2017 Tertiary NOT GIVENUNK [place] Insurance:SELF PAY [facility] Number: Effective Repository Date:2017-07-25 07/06/2017 [place] Primary KWAME A James [id number] Insurance:MEDICARE WALTONDOB: Community [place] PART A BPolicy Number: [id number], [place] [id number] Repository 66173Zei: (330) Date:2017-07-05 () 07/06/2017 Secondary KWAME A Downey Insurance:AARPPolicy WALTONDOB: Community Number: [id number] Hospital [id number] Repository Date:1154-50-80NG [address]SUPPO, [place] [address]RZ: 07/06/2017 Tertiary NOT GIVENUNK James Insurance:SELF PAY Community [facility] Number: Effective Repository Date:2017-07-05 06/28/2017 [place] Primary KWAME A James [id number] Insurance:MEDICARE WALTONDOB: Community [place] PART A BPolicy Number: [id number], [place] [id number] Repository 36381Aml: (330) Date:2017-06-28 (HP) 06/28/2017 Secondary KWAME A Downey Insurance:AARPPolicy WALTONDOB: Community Number: [id number] [facility] [id number] Repository Date:7782-44-97HR [address]LLOFFVP, [place] [address]CD: 06/28/2017 Tertiary NOT GIVENUNK James Insurance:SELF PAY [facility] Number: Effective Repository Date:2017-06-28 06/17/2017 KWAME WALTONDOB: Primary KWAME WALTONDOB: [facility] Insurance:MEDICARE A [id number] INVERNESS AND BPolicy Number: Repository [place] [id number] 14043Ddm: (330) Date: (HP) 06/17/2017 Secondary KWAME WALTONDOB: [facility] Insurance:[facility] [id number] SUPPLEMENTPolicy Repository Number: [id number] Date: 06/10/2017 [place] Primary KWAME A Downey [id number] Insurance:MEDICARE WALTONDOB: Community [place] PART A BPolicy Number: [id number], [place] [id number] Repository 67954Anb: (330) Date:2017-06-10 (HP) 06/10/2017 Secondary KWAME A James Insurance:AARPPolicy WALTONDOB: Community Number: [id number] Hospital [id number] Repository Date:8126-74-85[address], [place] [address]PS: 06/10/2017 Tertiary NOT GIVENUNK James Insurance:SELF PAY Community [facility] Number: Effective Repository Date:2017-06-10 05/19/2017 [place] S Primary KWAME A Downey [id number] Insurance:MEDICARE WALTONDOB: Community [place] PART A BPolicy Number: [id number], [place] [id number] Repository 78416Ygl: (330) Date:2017-05-19 [phone] (HP) 05/19/2017 Secondary KWAME A James Insurance:AARPPolicy WALTONDOB: Community Number: [id number] Hospital [id number] Repository Date:0077-78-85[address]SUQVHTN [place] [address]BF: 05/19/2017 Tertiary NOT GIVENUNK James Insurance:SELF PAY [facility] Number: Effective Repository Date:2017-05-19 04/28/2017 [place] Primary KWAME A James [id number] Insurance:MEDICARE WALTONDOB: Community [place] PART A BPolicy Number: [id number], [place] [id number] Repository 60719Gha: (524) Date:2017-04-28 [phone] (HP) 04/28/2017 Secondary KWAME A Downey Insurance:AARPPolicy WALTONDOB: Community Number: [id number] Hospital [id number] Repository Date:7794-36-64[address]FNJJJBM, [place] [address]MJ: 04/28/2017 Tertiary NOT GIVENUNK James Insurance:SELF PAY Community [facility] Number: Effective Repository Date:2017-04-28
--- OUTSIDE RECORDS SUMMARY | 2018-05-12 04:20 | XMS RPT_ITS ---
:1945 Author Organization OHIP Support Name Relationship Address Phone R Unavailable Unavailable Unavailable [place], [place] Unavailable [address] + [place] [address] R Unavailable Unavailable [place], [place] Unavailable [address] + [place] [address] R Unavailable Unavailable [place], [place] Unavailable [address] + [place] [address] R Unavailable Unavailable [place], [place] Unavailable [address] + [place] [address] R Unavailable Unavailable [place], [place] Unavailable [address] + [place] [address] R Unavailable Unavailable [place], [place] Unavailable [address] + [place] [address] R Unavailable Unavailable [place], [place] Unavailable [address] + [place] [address] R Unavailable Unavailable [place], [place] Unavailable [address] + [place] [address] R Unavailable Unavailable [place], [place] Unavailable [address] + [place] [address] R Unavailable Unavailable [place], [place] Unavailable [address] + [place] [address] R Unavailable Unavailable [place], [place] Unavailable [address] + [place] [address] R Unavailable Unavailable [place], [place] Unavailable [address] + [place] [address] R Unavailable Unavailable [place], [place] Unavailable [address] + [place] [address] R Unavailable Unavailable Unavailable [place], [place] Unavailable [address] + [place] [address] R Unavailable Unavailable [place], [place] Unavailable [address] + [place] [address] R Unavailable Unavailable [place], [place] Unavailable [address] + [place] [address] R Unavailable Unavailable [place], [place] Unavailable [address] + [place] [address] R Unavailable Unavailable [place], [place] Unavailable [address] + [place] [address] R Unavailable Unavailable [place], [place] Unavailable [address] + [place] [address] R Unavailable Unavailable [place], [place] Unavailable [address] + [place] [address] R Unavailable Unavailable [place], [place] Unavailable [address] + [place] [address] R Unavailable Unavailable [place], [place] Unavailable [address] + [place] [address] R Unavailable Unavailable [place], [place] Unavailable [address] + [place] [address] R Unavailable Unavailable [place], [place] Unavailable [address] + [place] [address] R Unavailable Unavailable [place], [place] Unavailable [address] + [place] [address] R Unavailable Unavailable [place], [place] Unavailable [address] + [place] [address] R Unavailable Unavailable [place], [place] Unavailable [address] + [place] [address] R Unavailable Unavailable [place], [place] Unavailable [address] + [place] [address] Care Team Providers Name Role Phone Shahbaz Young Attending Unavailable Shahbaz Young Referring Unavailable Twan Coy Primary Care Unavailable Twan Coy Attending Unavailable Twan Coy Primary Care Unavailable Manuel Verduzco Attending Unavailable Shahbaz Young Referring Unavailable Shahbaz Young Attending Unavailable Frannie Mosley PA-C Attending Unavailable Twan Coy Referring Unavailable Lucho South Attending Unavailable Arianne, Jayaprakash Referring Unavailable Zbigniew, [...] Arzate Attending Unavailable Madhav Saba Attending Unavailable Jerryis, Madhav Referring Unavailable Zbigniew, Twan Primary Care [...] Care Unavailable Zbigniew, Twan Primary Care Unavailable Agyepong, Manoj Admitting Unavailable Sanaz, Cassandra S. Consulting Unavailable Maurizio Lozano Attending Unavailable Agyepong, Manoj Admitting Unavailable Agyepong, Manoj Attending Unavailable Zbigniew, Twan Primary Care Unavailable Sanaz, Cassandra S. Consulting Unavailable Sherifyeeugeneg, Manoj Consulting Unavailable Agyepong, Manoj Admitting Unavailable Maurizio Lozano Attending Unavailable Zbigniew, Twan Primary Care Unavailable Sanaz, Cassandra S. Consulting Unavailable Maurizio Lozano Consulting Unavailable Agyepong, Manoj Admitting Unavailable Maurizio Lozano Attending Unavailable Zbigniew, Twan Primary Care Unavailable Sanaz, Cassandra S. Consulting Unavailable Maurizio Lozano Consulting Unavailable Manuel Verduzco Attending Unavailable Agyepong, Manoj Referring Unavailable Bettinabul Shahbaz Attending Unavailable Cebul, Shahbaz Referring Unavailable Zbigniew, Twan Primary Care Unavailable Zbigniew, Twan Attending Unavailable Zbigniew, Twan Referring Unavailable Zbigniew, Twan Primary Care Unavailable Bettinabul Shahbaz Attending Unavailable Cebul, Shahbaz Referring Unavailable Zbigniew, Twan Primary Care Unavailable Cebul, Shahbaz Consulting Unavailable Cebul, Shahbaz Attending Unavailable Twan Coy Referring Unavailable KALLIE [...] I10(ICD-10) Hospital Repository Unknown I25.10 - Dax, Argyle Active [place] 8 Atherosclerotic heart [facility] disease [facility] [place] [facility] coronary artery without Repository angina pectoris / I25.10(ICD-10) Unknown Z95.5 - Presence of Dax, Argyle Active [place] 8 coronary angioplasty Community implant and graft / Hospital Z95.5(ICD-10) Repository Unknown I65.22 - Occlusion and Shahbaz Young Active [place] 8 stenosis of left [facility] carotid artery / Hospital I65.22(ICD-10) Repository Unknown G62.9 - Polyneuropathy, JerryabdifatahMadhav Active [place] 8 unspecified / Community G62.9(ICD-10) Hospital Repository Unknown R26.89 - Other Madhav Saba Active [place] 8 abnormalities of gait Community and mobility / Hospital R26.89(ICD-10) Repository Unknown N18.3 - Chronic kidney Arianne, Active [place] 8 disease, stage 3 [facility] (moderate) / Hospital N18.3(ICD-10) Repository Unknown D63.1 - Anemia in Arianne, Active [place] 8 chronic kidney disease [facility] / D63.1(ICD-10) Hospital Repository Unknown N25.81 - Secondary Arianne, Active [place] 8 hyperparathyroidism of [facility] renal origin / Hospital N25.81(ICD-10) Repository Unknown R51 - Headache / Fara, Bolivar Active [place] 8 R51(ICD-10) [facility] Repository Unknown S52.509A - Unspecified Ted Yang Active [place] 8 fracture of the lower Community end of unspecified Hospital radius, initial Repository encounter for closed fracture / S52.509A(ICD-10) Unknown 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, Community unspecified / Hospital D32.9(ICD-10) Repository Active 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, unspecified / Clinic Other D32.9(ICD-10) [place] Repository Admitting Unknown / UNK(Unknown) Active [facility] 8 diagnosis Health [facility] Repository Unknown R60.9 - Edema, Twan Coy [facility] 8 unspecified / Community R60.9(ICD-10) Hospital Repository Unknown E03.9 - Hypothyroidism, Twan Coy [facility] 8 unspecified / Community E03.9(ICD-10) Hospital Repository PROCEDURES PROCEDURES No Procedure Records FoundRESULTS RESULTS OPERATIVE REPORT Observed: 02/07/2018 Status: F Source: [place] 5:29 PM [facility] REPOSITORY [facility] Medical Records Department [address] [place] [address] Operative Report 02/07/18 0739 MR#: [id number] Acct: [id number] Name: KWAME WEBBER Rep #: [id number] : 1945 72 From: Shahbaz Young MD PCP: Twan Coy MD Status: [facility] Y Location: [facility] Problem List (1) Carotid stenosis, left Status: [...] BEDSIDE GLUCOSE Collected: 02/07/2018 Status: F Source: [place] 5:56 AM [facility] REPOSITORY TYPE CODE TESTS RESULT OUT OF REFERENCE UNITS RANGE LAB L501.080 70-110 mg/dL High BEDSIDE GLU 128 Result Comment: MANAGEMENT OF PATIENT CARE PER NURSING PROTOCOL Performed By: #### L501.080 #### [facility] Point of Care [address] [place] [address] 12 LEAD ELECTROCARDIOGRAM Observed: 02/04/2018 Status: F Source: [place] 9:58 AM [facility] REPOSITORY [facility] Cardiovascular Services [address] [place] [address] EKG - DEC 02/02/18 0844 MR#: [id number] Acct: [id number] Name: KWAME WEBBER Rep #: [id number] : 1945 72 From: Manuel Verduzco MD Attending Dr: Shahbaz Young MD Status: PRE IN Ordering Dr: Shhabaz Young MD Date: 02/02/18 Location: [facility] Sex: F C Admitted: Test Reason : [...] ECG Confirmed by DAX RUIZ, MANUEL ([id number]), acquisitions editor MAYURI BLOUNT ([id number]) on 02/04/2018 9:57:57 AM Referred By: Shahbaz Young Confirmed By:MANUEL VERDUZCO MD 02/04/1858 Date Manuel Verduzco MD CC: Shahbaz Young MD; Twan Coy MD Date Dictated: 02/02/18843 Date Transcribed: 02/02/18843 Associate Programmer Analyst: Signed CBC-COMPLETE BLOOD CNT Collected: 02/02/2018 Status: F Source: [place] NO DIFF 8:51 AM [facility] REPOSITORY TYPE CODE TESTS RESULT OUT OF [...] MPV 11.3 Performed By: #### L100.0500 #### [facility] [address] [place], [address] BASIC METABOLIC Collected: 02/02/2018 Status: F Source: [place] PROFILE (BMP) 8:51 AM [facility] REPOSITORY TYPE CODE TESTS RESULT OUT OF [...] GAP 11 Performed By: #### L500.2500 #### [facility] [address] [place], [address] SURGERY VISIT REPORT Observed: 01/25/2018 Status: F Source: [place] 4:20 PM [facility] REPOSITORY [facility] 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 Patient is referred by the [facility] hospitalist service as well as her primary care physician Dr. Twan Coy and a written copy of my surgical consult will be returned to him. She was [facility] to [facility] December 24 - December 26, 2017. [...] the left cavernous carotid without luminal narrowing. [place] otherwise normal. She also had [...] coronary stenting approximately the year 1999. 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 Scott De La Rosa. It [...] <Electronically signed by Shahbaz Young MD> Date Shahbza Young MD Cosigner Signature: Date (if applicable) CC: Twan Coy MD OT D/C OF NON Observed: 01/24/2018 Status: F Source: [facility] PT 6:51 PM [facility] REPOSITORY [facility] Occupational Therapy [facility] [address] [place] [address]. [address] [place] [address] Fax REHABILITATION SERVICES DISCHARGE SUMMARY MR#: [id number] Acct: [id number] Name: KWAME WEBBER Rep #: [id number] : 1945 72 From: Kala Negron OTR/L, [...] ROM: 65/45 and L wrist ROM: 53/53 seat pack inspector strength L 15 # and R 45 [...] CAROTID DUPLEX Observed: 01/24/2018 Status: F Source: [place] ULTRASOUND 5:18 PM [facility] REPOSITORY [facility] Cardiovascular Services [address] [place] [address] [place] [address] Carotid Duplex Ultrasound 01/24/18 1007 MR#: [id number] Acct: [id number] Name: KWAME WEBBER Rep #: [id number] : 1945 72 From: Shahbaz Young MD [...] the left vertebral artery. Procedure Carotid Duplex 17226. Exam performed in department. Interpretation Summary Post [...] Date Dictated: 01/24/18 1007 Date Transcribed: 01/24/181716 Associate Programmer Analyst: Signed CONSULTATION Observed: 01/07/2018 Status: F Source: [place] 4:00 PM [facility] REPOSITORY [facility] Medical Records Department [address] [place] [address] Consultation 12/25/17 1549 MR#: [id number] Acct: [id number] Name: KWAME WEBBER Rep #: [id number] : 1945 72 From: Cassandra Yo MD PCP: Twan Coy MD Status: DIS IN Y Location: [place] [address] Problem List (1) TIA (transient ischemic attack) [...] the LAD 1999 Atherosclerotic heart disease of [place] coronary artery without angina pectoris (Chronic) Hyperlipemia [...] the LAD 1999 Atherosclerotic heart disease of [place] coronary artery without angina pectoris (Chronic) I25.10 [...] -CTA head/neck- Left ICA 70-80% stenosis -LDL-57, Dcp6v-0.1% -TTE-EF-60%, normal LA size -Recommend Vascular surgery [...] management Code Visit Inpatient E AND M: 61023 Init Hosp L3 01/07/18 1600 <Electronically signed by Cassandra Yo MD> Date Cassandra Yo MD Cosigner Signature (if applicable): Date CC: Aurora Yo MD; Twan Coy MD Signed 12 LEAD ELECTROCARDIOGRAM Observed: 12/30/2017 Status: F Source: [place] 4:08 PM [facility] REPOSITORY [facility] Cardiovascular Services [address] [place] [address] 12 Lead EKG 12/25/17 0632 MR#: [id number] Acct: [id number] Name: KWAME WEBBER Rep #: [id number] : 1945 72 From: Manuel Verduzco MD Attending Dr: Maurizio Lozano DO Status: DIS IN Ordering Dr: Maurizio Lozano DO Date: 12/25/17 Location: [facility] Sex: F C Admitted: 12/25/17 Test Reason [...] ECG Confirmed by MANUEL VERDUZCO MD ([id number]), acquisitions editor MAYURI BLOUNT (56) on 12/30/2017 4:07:48 PM Referred By: Kayleigh South Confirmed By:MANUEL VERDUZCO MD 12/30/17 1607 Date Manuel Verduzco MD CC: Maurizio Lozano DO; Twan Coy MD Signed 12 LEAD ELECTROCARDIOGRAM Observed: 12/30/2017 Status: F Source: [place] 4:07 PM [facility] REPOSITORY [facility] Cardiovascular Services [address] [place] [address] 12 Lead EKG 12/25/17 1655 MR#: [id number] Acct: [id number] Name: KWAME WEBBER Rep #: [id number] : 1945 72 From: Manuel Verduzco MD [...] UNCONFIRMED Confirmed by MANUEL VERDUZCO MD ([id number]), acquisitions editor MAYURI BLOUNT (56) on 12/30/2017 4:07:11 PM Referred By: Kayleigh oSuth Confirmed By:MANUEL VERDUZCO MD 12/30/17 1607 Date Manuel Verduzco MD CC: Maurizio Lozano DO; Manoj Deluna MD; Twan Coy MD Signed 12 LEAD ELECTROCARDIOGRAM Observed: 12/27/2017 Status: F Source: [place] 3:20 PM [facility] REPOSITORY [facility] Cardiovascular Services [address] [place] [address] 12 Lead EKG 12/24/17 2131 MR#: [id number] Acct: [id number] Name: KWAME WEBBER Rep #: [id number] : 1945 72 From: Manuel Verduzco MD [...] ECG Confirmed by MANUEL VERDUZCO MD ([id number]), acquisitions editor MAYURI BLOUNT (56) on 12/27/2017 3:19:53 PM Referred By: Kayleigh South Confirmed By:MANUEL VERDUZCO MD 12/27/17 1519 Date Manuel Verduzco MD CC: Ana Bender MD; Maurizio Lozano DO; Twan Coy MD Signed DISCHARGE SUMMARY Observed: 12/26/2017 Status: F Source: [place] 10:45 AM [facility] REPOSITORY [facility] Medical Records Department [address] [place] [address] Discharge Summary 12/26/17 1039 MR#: [id number] Acct: [id number] Name: KWAME WEBBER Rep #: [id number] : 1945 72 From: Maurizio Lozano DO PCP: Twan Coy MD Status: ADM IN Y Location: [place] [address] Discharge Date and Diagnosis - Problem List [...] the LAD 1999 Atherosclerotic heart disease of [place] coronary artery without angina pectoris (Chronic) Hyperlipemia (Chronic) Hypothyroidism (Chronic) Hospital Course and Treatment Imaging Results: Clinical Impression(s) from Imaging Studies Head CTA 12/24/17 21:44 IMPRESSION: Normal [place] without a demonstrated aneurysm or hemodynamically significant stenosis. Electronically Signed: Juan Ang DO at 23:25 EDT Tel [phone], Service support , Neck CTA 12/24/17 21:44 IMPRESSION: 1. Question 70-80% stenosis of the left carotid bulb. 2. Minimal atherosclerotic changes of the distal right common carotid artery without stenosis. 3. No other evidence of vascular abnormality. Electronically Signed: Juan Ang DO at 23:34 EDT Tel [phone], Service support , Chest X-Ray 12/24/17 22:08 [...] Indicated Code Visit Inpatient E AND M: 91792 Disch Hosp 12/26/17 1045 <Electronically signed by Maurizio Lozano DO> Date Maurizio Lozano DO Cosigner Signature (if applicable): Date CC: Maurizio Lozano DO; Twan Coy MD Signed DISCHARGE INSTRUCTION Observed: 12/26/2017 Status: F Source: [place] 10:39 AM [facility] REPOSITORY [facility] Medical Records Department [address] [place] [address] Instructions for Home/Discharge Instructions 12/26/17 1035 MR#: [id number] Acct: [id number] Name: KWAME WEBBER Rep #: [id number] : 1945 72 From: Maurizio Lozano DO [...] 12/26/2017 Status: F Source: [place] 6:44 AM [facility] REPOSITORY TYPE CODE TESTS RESULT OUT OF REFERENCE UNITS RANGE LAB L501.080 70-110 mg/dL High BEDSIDE GLU 124 Result Comment: MANAGEMENT OF PATIENT CARE PER NURSING PROTOCOL Performed By: #### L501.080 #### [facility] Point of Care [address] [place] [address] BEDSIDE GLUCOSE Collected: 12/25/2017 Status: F Source: [place] 11:47 PM [facility] REPOSITORY TYPE CODE TESTS RESULT OUT OF REFERENCE UNITS RANGE LAB L501.080 70-110 mg/dL High BEDSIDE GLU 138 Result Comment: MANAGEMENT OF PATIENT CARE PER NURSING PROTOCOL Performed By: #### L501.080 #### [facility] Point of Care [address] [place] [address] BEDSIDE GLUCOSE Collected: 12/25/2017 Status: F Source: [place] 9:00 PM [facility] REPOSITORY TYPE CODE TESTS RESULT OUT OF RANGE REFERENCE UNITS LAB L501.080 70-110 mg/dL Normal BEDSIDE GLU 86 Result Comment: MANAGEMENT OF PATIENT CARE PER NURSING PROTOCOL Performed By: #### L501.080 #### [facility] Point of Care [address] [place] [address] HISTORY AND PHYSICAL Observed: 12/25/2017 Status: F Source: [place]AM 5:40 PM [facility] REPOSITORY [facility] Medical Records Department [address] [place] [address] History and Physical 12/24/17 2353 MR#: [id number] Acct: [id number] Name: KWAME WEBBER Rep #: [id number] : 1945 72 From: Manoj Deluna MD PCP: Twan Coy MD Status: ADM IN Location: [place] [address] ADDENDUM by Manoj Deluna MD on 12/25/17 [...] the LAD 1999 Atherosclerotic heart disease of [place] coronary artery without angina pectoris (Chronic) Hyperlipemia [...] the LAD 1999 Atherosclerotic heart disease of [place] coronary artery without angina pectoris (Chronic) I25.10 [...] (Auto) Neut % (Auto) Lymph % (Auto) [place] % (Auto) POC Glucose POC Glucose 97 [...] . Code Visit OBSV E AND M: 97854 Initial observation care L3 12/25/17 0643 <Electronically signed by Manoj Deluna MD> Date Manoj Deluna MD Cosigner Signature: Date (if applicable) CC: Manoj Deluna MD; Twan Coy MD Signed BEDSIDE GLUCOSE Collected: 12/25/2017 Status: F Source: [place] 4:29 PM [facility] REPOSITORY TYPE CODE TESTS RESULT OUT OF REFERENCE UNITS RANGE LAB L501.080 70-110 mg/dL High BEDSIDE GLU 141 Result Comment: MANAGEMENT OF PATIENT CARE PER NURSING PROTOCOL Performed By: #### L501.080 #### [facility] Point of Care [address] [place] [address] BEDSIDE GLUCOSE Collected: 12/25/2017 Status: F Source: [place] 12:04 PM [facility] REPOSITORY TYPE CODE TESTS RESULT OUT OF REFERENCE UNITS RANGE LAB L501.080 70-110 mg/dL High BEDSIDE GLU 276 Result Comment: MANAGEMENT OF PATIENT CARE PER NURSING PROTOCOL Performed By: #### L501.080 #### [facility] Point of Care [address] [place] [address] ECHOCARDIOGRAM COMPLETE Observed: 12/25/2017 Status: F Source: [place] 11:38 AM [facility] REPOSITORY [facility] Cardiovascular Services [address] [place] [address] Echo Complete 12/25/17 0710 MR#: [id number] Acct: [id number] Name: KWAME WEBBER Rep #: [id number] : 1945 72 From: Manuel Verduzco MD [...] Date Dictated: 12/25/1710 Date Transcribed: 11/03/18 1137 Associate Programmer Analyst: Signed BEDSIDE GLUCOSE Collected: 12/25/2017 Status: F Source: [place] 7:06 AM [facility] REPOSITORY TYPE CODE TESTS RESULT OUT OF REFERENCE UNITS RANGE LAB L501.080 70-110 mg/dL High BEDSIDE GLU 167 Result Comment: MANAGEMENT OF PATIENT CARE PER NURSING PROTOCOL Performed By: #### L501.080 #### [facility] Point of Care [address] [place] [address] LIPID PROFILE Collected: 12/25/2017 Status: F Source: [place] 6:00 AM [facility] REPOSITORY TYPE CODE TESTS RESULT OUT OF [...] VLDL 33 Performed By: #### L500.4100 #### [facility] [address] [place], [address] BRAIN WITHOUT Observed: 12/25/2017 Status: F Source: [place] CONTRAST 12:41 AM [facility] REPOSITORY [facility] Imaging Services [address] [place] [address] Brain without Contrast MR#: [id number] Acct: [id number] Name: KWAME WEBBER Rep #: [id number] : 1945 F 72 From: Domenic Padilla PCP: Twan Coy MD Status: ADM YAIR Study: Brain without Contrast Date of Exam: 12/25/17 Exam# [id number] Ordering Dr: Manoj Deluna MD STUDY: MRI [...] CC: Manoj Deluna MD; Twan Coy MD Associate Programmer Analyst: Signed EMERGENCY DEPARTMENT Observed: 12/24/2017 Status: F Source: [place] SUMMARY 11:45 PM [facility] REPOSITORY [facility] Medical Records Department [address] [place] [address] Emergency Department Summary 12/24/17 2148 MR#: [id number] Acct: [id number] Name: KWAME WEBBER Rep #: [id number] : 1945 72 From: Ana Bender MD [...] speaking at that time. She was given [place] for home. She states this helped but [...] unremarkable. Troponin 0.034. CTA head shows normal [place] without a demonstrated aneurysm or [...] Expressive aphasia This note was generated with [employer] dictation software. It may contain incorrect words, [...] problems, contact your Primary Care Provider. Call [employer] [facility] ([phone]) or report to the closest Emergency Room. Call 911 if necessary. 12/24/17 5417 <Electronically signed by Ana Bender MD> Date Ana Bender MD Cosigner Signature (If Indicated): Date CC: Twan Coy MD URINALYSIS, COMPLETE Collected: 12/24/2017 Status: F Source: [place] 10:21 PM [facility] REPOSITORY Order Comment: Order Date: 12/24/17 Has [...] 5-10 SEEN Performed By: #### L400.0001 #### [facility] [address] [place], [address] CTA HEAD W/WO Observed: 12/24/2017 Status: F Source: [place] CONTRAST 9:44 PM [facility] REPOSITORY [facility] Imaging Services [address] [place] [address] CTA Head W/WO Contrast MR#: [id number] Acct: [id number] Name: KWAME WEBBER Rep #: [id number] : 1945 F 72 From: Juan Ang DO PCP: Twan Coy MD Status: REG ER Study: CTA Head W/WO Contrast Date of Exam: 12/24/17 Exam# [id number] Ordering Dr: Ana Bender MD STUDY: CTA [...] There is no demonstrated aneurysm of the [place]. There is no demonstrated abnormality of the visualized brain. CT/CTA Head W/WO Contrast IMPRESSION: Normal [place] without a demonstrated aneurysm or hemodynamically significant stenosis. Electronically Signed: Juan Ang DO at 23:25 EDT Tel [phone], Service support , CC: Ana Bender MD; Twan Coy MD Associate Programmer Analyst: Signed CTA NECK W/WO Observed: 12/24/2017 Status: F Source: [place] CONTRAST 9:44 PM [facility] [facility] REPOSITORY [facility] Imaging Services [address] [place] [address] CTA Neck W/WO Contrast MR#: [id number] Acct: [id number] Name: KWAME WEBBER Rep #: [id number] : 1945 F 72 From: Juan Ang DO PCP: Twan Coy MD Status: REG ER Study: CTA Neck W/WO Contrast Date of Exam: 12/24/17 Exam# [id number] Ordering Dr: Ana Bender MD STUDY: CTA [...] Juan Ang DO at 23:34 EDT Tel [phone], Service support , CC: Ana Bender MD; Twan Coy MD Associate Programmer Analyst: Signed CBC W/DIFF, AUTOMATED Collected: 12/24/2017 Status: F Source: JAMES 9:42 PM [facility] REPOSITORY TYPE CODE TESTS RESULT OUT OF [...] Lymph 2.10 Performed By: #### L100.0100 #### [facility] [address] [place], [address] PROTHROMBIN TIME W/INR Collected: 12/24/2017 Status: F Source: PO[place] LOOKOUT 9:42 PM [facility] REPOSITORY TYPE CODE TESTS RESULT OUT OF RANGE REFERENCE UNITS LAB L300.4150 11.7-14.9 SECONDS Normal PROTIME 12.6 LAB L300.4200 Normal INR 0.9 Performed By: #### L300.3900, L300.4310 #### [facility] [address], [place], [address] PARTIAL THROMBOPLAST Collected: 12/24/2017 Status: F Source: PO[place] LOOKOUT TIME 9:42 PM [facility] REPOSITORY TYPE CODE TESTS RESULT OUT OF RANGE REFERENCE UNITS LAB L300.4310 24.1-36.2 Seconds Normal PTT 24.7 Performed By: #### L300.3900, L300.4310 #### [facility] [address] [place], [place], [address] BASIC METABOLIC Collected: 12/24/2017 Status: F Source: JAMES PROFILE (BMP) 9:42 PM [facility] REPOSITORY TYPE CODE TESTS RESULT OUT OF [...] 7 Performed By: #### L500.2500, L501.4010 #### [facility] [address] [place], [place], [address] TROPONIN-I Collected: 12/24/2017 Status: F Source: JAMES 9:42 PM [facility] REPOSITORY TYPE CODE TESTS RESULT OUT OF RANGE REFERENCE UNITS LAB L501.4010 <0.045 ng/mL Normal 0.034 TROPONIN-I Result Comment: TROPONIN-I EXPECTED VALUES <0.045 Negative 0.045 - 0.590 Consistent with Cardiac Damage > OR = 0.600 Critical Value Not every elevated troponin is indicative of NC. These values should be used with clinical judgement in examining the patient's clinical picture for diagnosis. To establish a diagnosis of NC versus myocardial injury, there must be a demonstrated rise and/or fall in the troponin values, in addition to ischemic symptoms, EKG changes, new regional wall motion abnormality, and/or angiographical evidence. PLEASE NOTE: REFERENCE RANGES EDITED 17 Performed By: #### L500.2500, L501.4010 #### [facility] [address] [place], [address] ERYTHROCYTE SED RATE Collected: 12/24/2017 Status: F Source: [place]OOK[place] 9:42 PM [facility] REPOSITORY TYPE CODE TESTS RESULT OUT OF RANGE REFERENCE UNITS LAB L102.0000 0-30 mm/hr Normal SED RATE 14 Performed By: #### L101.9900 #### [facility] [address] [place], [address] HEMOGLOBIN A1C Collected: 12/24/2017 Status: F Source: PO[place] 9:42 PM [facility] REPOSITORY TYPE CODE TESTS RESULT OUT OF RANGE REFERENCE UNITS LAB L501.9985 4.2-6.3 % High HGB A1C 7.1 Performed By: #### L501.9985 #### [facility] [address] [place], [address] CHEST 1 VIEW Observed: 12/24/2017 Status: F Source: PO[place] 9:37 PM [facility] REPOSITORY [facility] Imaging Services [address] [place] [address] Chest 1 View MR#: [id number] Acct: [id number] Name: KWAME WEBBER Rep #: [id number] : 1945 F 72 From: Sandra Irving MD PCP: Twan Coy MD Status: REG ER Study: Chest 1 View Date of Exam: 12/24/17 Exam# [id number] Ordering Dr: Ana Bender MD STUDY: X-RAY [...] CC: Ana Bender MD; Twan Coy MD Associate Programmer Analyst: Signed BEDSIDE GLUCOSE Collected: 12/24/2017 Status: F Source: PO[place] LOOK[place] 9:23 PM [facility] REPOSITORY TYPE CODE TESTS RESULT OUT OF RANGE REFERENCE UNITS LAB L501.080 70-110 mg/dL Normal BEDSIDE GLU 97 Result Comment: MANAGEMENT OF PATIENT CARE PER NURSING PROTOCOL Performed By: #### L501.080 #### [facility] Point of Care [facility] [place] [address] CBC W/DIFF, AUTOMATED Collected: 12/23/2017 Status: F Source: [place] 5:44 PM [facility] REPOSITORY TYPE CODE TESTS RESULT OUT OF [...] Lymph 1.61 Performed By: #### L100.0100 #### [facility] [address] [place], [address] RENAL PROFILE Collected: 12/23/2017 Status: F Source: PO[place] 5:44 PM [facility] REPOSITORY TYPE CODE TESTS RESULT OUT OF [...] CO2 31.0 Performed By: #### L500.3600 #### [facility] [address] [place], [place], [address] MICROALB:CREAT Collected: 12/23/2017 Status: F Source: JAMES RATIO,RANDOM UR 5:44 PM [facility] REPOSITORY TYPE CODE TESTS RESULT OUT OF RANGE REFERENCE UNITS LAB L501.1200 NO RANGE EST. mg/dL Normal UR CREAT 138.00 LAB L502.0500 NO RANGE EST. mg/L Normal 68.4 MICROALBUMIN ,UR LAB L502.0600 <30 mg/g CRE mg/g CRE High 49.6 MALB:CREAT Performed By: #### L502.0250 #### [facility] [address] [place], [address] PTHIN Collected: 12/23/2017 Status: F Source: JAMES 5:44 PM [facility] REPOSITORY TYPE CODE TESTS RESULT OUT OF RANGE REFERENCE UNITS LAB L509.1000 18.4-80.1 pg/mL Normal PTHIN 25.3 Performed By: #### L509.1000 #### [facility] [address] [place], [address] VITAMIN D,25 HYDROXY Collected: 12/23/2017 Status: F Source: JAMES 5:44 PM [facility] REPOSITORY TYPE CODE TESTS RESULT OUT OF RANGE REFERENCE UNITS LAB L506.1000 29.95-100.01 ng/mL Normal Vitamin D 46.6 25-OH Result Comment: Vitamin D 25(OH) Status Range Deficiency <20 ng/mL (50nmol/L) Insuffciency 20 - 30 ng/mL (50 - 75 nmol/L) Sufficiency 30 - 100 ng/mL (75 - 250 nmol/L) Toxicity >100 ng/mL (>250 nmol/L) Performed By: #### L506.1000 #### [facility] [address] [place], [address] RE-EVALUTION OT Observed: 12/20/2017 Status: F Source: PO[place] LOOKOUT 6:41 [facility] REPOSITORY [facility] [address]. [address] [place] [address] Fax REEVALUATION / MEDICARE RECERTIFICATION OCCUPATIONAL THERAPY MR#: [id number] Acct: [id number] Name: KWAME WEBBER Rep #: [id number] : 1945 72 From: Kala Negron OTR/L, [...] not want to participate in therapy. Objective/Function: seat pack inspector strength L 15 # and R 45 [...] Pt will demo a increase in left seat pack inspector strength to 25# to increase pts ind. [...] do not hesitate to contact me at [phone] by phone or if you have questions or concerns regarding this new plan of care! Sincerely, ALONA Rausch/Roberth CHT <Electronically signed by Kala SAGE/GRETTA Lepe> 12/20/17 1841 CC: Madhav Saba MD; Twan Coy MD MK Signed For Medicare only, by signing this I certify the plan of care. Physicians Signature Date EMERGENCY DEPARTMENT Observed: 12/15/2017 Status: F Source: POINT LOOKOUT SUMMARY 6:15 PM [facility] REPOSITORY [facility] Medical Records Department [address] [place] [address] Emergency Department Summary 12/15/17 1106 MR#: [id number] Acct: [id number] Name: KWAME WEBBER Rep #: [id number] : 1945 72 From: Bolivar Chaudhari MD [...] Plan: Patient will be discharged with 10 [place] and Colace. Instructed to follow-up Dr. Coy in 2 days as previously scheduled. Return to the emergency department for any worsening symptoms. Disposition: To home in improved and stable condition. Impression: 1. Cephalgia. This note was generated with Microstaq dictation software. It may contain incorrect words, spelling, and punctuation that were not noted in review of the chart prior to signing ED Disposition - Plan for ED Patient: Chief Complaint: Headache Instructions: ED Cephalgia Unspecified Prescriptions: Hydrocodone Bitart/Apap 5-325 [[place] 5MG-325MG] 1 tablet PO Q4H PRN PRN [...] your Primary Care Provider. Call [facility] ([phone]) or report to the closest Emergency Room. Call 911 if necessary. 12/15/17 1815 <Electronically signed by Bolivar Chaudhari MD> Date Bolivar Chaudhari MD Cosigner Signature (If Indicated): Date CC: Twan Coy MD BRAIN/HEAD WITHOUT Observed: 12/15/2017 Status: F Source: JAMES CONTRAST 10:13 AM [facility] REPOSITORY [facility] Imaging Services [address] [place] [address] Brain/Head without Contrast MR#: [id number] Acct: [id number] Name: KWAME WEBBER Rep #: [id number] : 1945 F 72 From: Amandeep Dawkins MD PCP: Twan Coy MD Status: REG ER Study: Brain/Head without Contrast Date of Exam: 12/15/17 Exam# [id number] Ordering Dr: Bolivar Chaudhari MD STUDY: CT [...] Amandeep Dawkins MD at 10:46 EDT Tel [phone], Service support , CC: Bolivar Chaudhari MD; Twan Coy MD Associate Programmer Analyst: Signed RE-EVALUATION - PT (1) Observed: 12/07/2017 Status: F Source: PO[place] LOOKOUT 4:47 PM [facility] REPOSITORY [facility] [address] [place] [address]. [address] [place] [address] Fax REEVALUATION / MEDICARE RECERTIFICATION PHYSICAL THERAPY MR#: [id number] Acct: [id number] Name: KWAME WEBBER Rep #: [id number] : 1945 72 From: Susan LARSENT Referring [...] do not hesitate to contact me at [phone] by phone or if you have questions or concerns regarding this new plan of care! Sincerely, Susan You <Electronically signed by Susan You DPT> 12/07/17 6363 CC: Madhav Saba MD; Twan Coy MD ELR Signed For Medicare only, by signing this I certify the plan of care. Physicians Signature Date CARDIOLOGY VISIT Observed: 12/02/2017 Status: F Source: JAMES REPORT 7:01 PM [facility] REPOSITORY [facility] [address] [place] [address] OFFICE VISIT Date of Service: 12/02/17 MR#: [id number] Acct: [id number] Name: KWAME WEBBER Rep #: [id number] : 1945 Provider: Scott De La Rosa MD Age/Sex: 72/F Location: [facility] Status: Signed HPI HPI Details: KWAME WEBBER, is a 72 F who presents to the office today for outpatient cardiovascular consultation and establishment of outpatient cardiovascular care for history of underlying CAD, PCI, valvular heart disease, superimposed upon peripheral vascular disease, hyperlipidemia, hypertension, and diabetes mellitus. She has previously been cared for by cardiovascular services in [place], [place]. It appears she has the aforementioned [...] .COMPLEX PRN tab 12/02/17 [History Confirmed 12/02/17] [facility] Medical History Nonrheumatic aortic (valve) stenosis (Acute) Pulmonary hypertension (Acute) Nonrheumatic tricuspid (valve) insufficiency (Acute) Nonrheumatic mitral (valve) insufficiency (Acute) Nonrheumatic mitral (valve) prolapse (Acute) CKD (chronic kidney disease) stage 3, GFR 30-59 ml/min (Chronic) Type 2 diabetes mellitus (Chronic) Essential hypertension (Chronic) Carotid artery stenosis (Chronic) Presence of stent in coronary artery (Chronic 1999) Atherosclerotic heart disease of [place] coronary artery without angina pectoris (Chronic) Hyperlipemia [...] AND Plan 1. Atherosclerotic heart disease of [place] coronary artery without angina pectoris I25.10 Plan [...] carotid artery disease status post carotid artery ydwjtuqssqfyuk-uffic-snnoy-in approximately 2000. She will continue her follow-up [...] vis,est,level 3 Diagnoses Atherosclerotic heart disease of [place] coronary artery without angina pectoris I25.10 Presence of stent in coronary artery Z95.5 Nonrheumatic aortic (valve) stenosis I35.0 Nonrheumatic mitral valve insufficiency I34.0 Non-rheumatic tricuspid valve insufficiency I36.1 Hyperlipidemia, unspecified hyperlipidemia type E78.5 Hyperlipidemia type: unspecified Essential hypertension I10 Bilateral carotid artery stenosis I65.23 Laterality: bilateral Pulmonary HTN I27.20 Coding Level of Care Code Off vis,est,level 3 Diagnoses Atherosclerotic heart disease of [place] coronary artery without angina pectoris I25.10 Presence [...] Observed: 12/02/2017 Status: F Source: JAMES BY [facility] 3:54 PM [facility] REPOSITORY [address] [address] 12 Lead EKG performed by [facility] 12/02/17 1553 MR#: [id number] Acct: [id number] Name: KWAME WEBBER Rep #: [id number] : 1945 72 From: Scott De La Rosa MD Attending Dr: Scott De La Rosa MD Status: DEP AMB Ordering Dr: Scott De La Rosa MD Date: 12/02/17 Location: [facility] Sex: F C Admitted: BMS/12 Lead EKG performed by [facility] ECG Report Interpretation Sinus rhythm with PSVCsLeft axis deviationPossible left anterior fascicular block. Voltage criteria for LVH (R(aVL) Nonspecific ST depression + Nonspecific T-abnormality Poor R wave progressionABNORMAL Electronically signed on 12/02/2017 at 19:03 by Scott De La Rosa Software Version 8610 12/02/171904 Date Scott De La Rosa MD CC: Twan Coy MD Date Dictated: 12/02/17 1553 Date Transcribed: 12/02/171552 Associate Programmer Analyst: PM Signed OT GENERAL EVALUATION Observed: 11/08/2017 Status: F Source: PO[place] LOOKOUT 8:06 AM [facility] REPOSITORY [facility] [address] [place] [address] Fax REHABILITATION SERVICES INITIAL EVALUATION MR#: [id number] Acct: [id number] Name: KWAME WEBBER Rep #: [id number] : 1945 72 From: Kala SAGE/Roberth, LEENAT [...] Wrist: right 60/40 left 45/30 - Strength Advisory Application Developer: right 25# left 5# Lateral Pinch: right 4# left 2# Tripod Pinch: right 7# left 1# Strength Comments: pt demo with weak bilateral seat pack inspector and pinch strength - Sensation Sensation Comments: denies - Hand/Wrist Evaluation Total Score of Pain AND Functional Sections: 56 - Goals Goal:: Pt will demo a increase in left seat pack inspector strength to 25# to increase pts ind. [...] to be FAXED BACK to us at [phone] for Medicare purposes. Please let me know [...] 11/05/2017 Status: F Source: JAMES 11:08 AM [facility] REPOSITORY [facility] [address] [place] [address]. [address] [place] [address] Fax REEVALUATION / MEDICARE RECERTIFICATION PHYSICAL THERAPY MR#: [id number] Acct: [id number] Name: KWAME WEBBER Rep #: [id number] : 1945 72 From: Susan You DPT [...] do not hesitate to contact me at [phone] by phone or if you have questions or concerns regarding this new plan of care! Sincerely, Susan You <Electronically signed by Susan You DPT> 11/05/17 1108 CC: Madhav Saba MD; Twan Coy MD ELR Signed For Medicare only, by signing this I certify the plan of care. Physicians Signature Date 12 LEAD ELECTROCARDIOGRAM Observed: 09/27/2017 Status: F Source: PO[place] LOOKOUT 4:10 PM [facility] REPOSITORY [facility] Cardiovascular Services [address] [place] [address] 12 Lead EKG 09/20/17 0647 MR#: [id number] Acct: [id number] Name: KWAME WEBBER Rep #: [id number] : 1945 72 From: Scott De La Rosa MD Attending Dr: Gaston Spears DO Status: [facility] Ordering Dr: Manuel Chacon MD Date: 09/20/17 Location: [facility] Sex: F C Admitted: Test Reason : [...] Abnormal ECG Confirmed by RJ RUIZ, SCOTT ([id number]), acquisitions editor MAYURI BLOUNT ([id number]) on 09/27/2017 4:10:01 PM Referred By: Gaston Spears Confirmed By:SCOTT DE LA ROSA MD 09/27/17 0796 Date Scott De La Rosa MD CC: Manuel Chacon MD; Gaston Spears DO; Twan Coy MD Signed BEDSIDE GLUCOSE Collected: 09/20/2017 Status: F Source: JAMES 9:02 AM [facility] REPOSITORY TYPE CODE TESTS RESULT OUT OF REFERENCE UNITS RANGE LAB L501.080 70-110 mg/dL High BEDSIDE GLU 244 Result Comment: MANAGEMENT OF PATIENT CARE PER NURSING PROTOCOL Performed By: #### L501.080 #### [facility] Point of Care [address] [place] [address] OPERATIVE REPORT Observed: 09/20/2017 Status: F Source: JAMES 8:15 AM [facility] REPOSITORY [facility] Medical Records Department [address] [place] [address] Operative Report 09/20/17 0812 MR#: [id number] Acct: [id number] Name: KWAME WEBBER Rep #: [id number] : 1945 72 From: Gaston Spears DO PCP: Twan Coy MD Status: REG [facility] Y Location: [place] [address] Report of Operation Date of Procedure: 09/20/17 Pre-Operative Diagnosis: Distal radius fracture left extra-articular Post-Operative Diagnosis: Same Surgery/Procedure Performed:: Open reduction with internal fixation of left distal radius Description of Surgical Findings:: Extra-articular displaced distal radius fracture extrusion former: Jani Landon Type of Anesthesia:: General Anesthesiologist: [...] of the radius and retracted medially. [place] retractor was then placed exposing the volar [...] the recovery room in stable condition. Physician delivery assistant was integral in all portions of this procedure. They assisted with positioning the patient, draping the extremity, holding retractors, closing the wound, and applying the dressing. This was all done under my direct supervision. The physician delivery assistant was essential for a successful, efficient [...] 09/20/2017 Status: F Source: JAMES 8:12 AM [facility] REPOSITORY [facility] Medical Records Department [address] [facility] [address] Instructions for Home/Discharge Instructions 09/20/17810 MR#: [id number] Acct: [id number] Name: KWAME WEBBER Rep #: [id number] : 1945 72 From: Gaston Spears DO PCP: Twan Coy MD Status: REG [facility] Discharge Diet: No Restrictions Discharge Activity: May [...] mg PO DAILY 09/13/17 Hydrocodone Bitart/Apap 5-325 [[place] 5MG-325MG] 1 tab PO Q6H PRN PRN [...] 09/20/2017 Status: F Source: JAMES 6:46 AM [facility] REPOSITORY TYPE CODE TESTS RESULT OUT OF RANGE REFERENCE UNITS LAB L300.4150 11.7-14.9 SECONDS Normal PROTIME 12.9 LAB L300.4200 Normal INR 1.0 Performed By: #### L300.3900, L300.4310 #### [place] [facility] [address] [place], [place], [address] PARTIAL THROMBOPLAST Collected: 09/20/2017 Status: F Source: JAMES TIME 6:46 AM [facility] REPOSITORY TYPE CODE TESTS RESULT OUT OF RANGE REFERENCE UNITS LAB L300.4310 24.1-36.2 Seconds Normal PTT 26.0 Performed By: #### L300.3900, L300.4310 #### [facility] [address] [place], [address] BEDSIDE GLUCOSE Collected: 09/20/2017 Status: F Source: POINT LOOKOUT 6:31 AM [facility] REPOSITORY TYPE CODE TESTS RESULT OUT OF REFERENCE UNITS RANGE LAB L501.080 70-110 mg/dL High BEDSIDE GLU 234 Result Comment: MANAGEMENT OF PATIENT CARE PER NURSING PROTOCOL Performed By: #### L501.080 #### [facility] Point of Care [address] [place] [address] WRIST MIN 3 VIEWS Observed: 09/20/2017 Status: F Source: PO[place]OOKOUT 5:54 AM [facility] REPOSITORY [facility] Imaging Services [address] [place] [address] Wrist min 3 Views MR#: [id number] Acct: [id number] Name: KWAME WEBBER Rep #: [id number] : 1945 F 72 From: Amandeep Dawkins MD PCP: Twan Coy MD Status: [facility] Study: Wrist min 3 Views Date of Exam: 09/20/17 Exam# [id number] Ordering Dr: Gaston Spears DO STUDY: X-RAY [...] Amandeep Dawkins MD at 14:31 EDT Tel [phone], Service support , CC: Gaston Spears DO; Twan Coy MD Associate Programmer Analyst: Signed EMERGENCY DEPARTMENT Observed: 09/13/2017 Status: F Source: JAMES SUMMARY 5:08 AM [facility] REPOSITORY [facility] Medical Records Department [address] [place] [address] Emergency Department Summary 09/13/17 0319 MR#: [id number] Acct: [id number] Name: KWAME WEBBER Rep #: [id number] : 1945 72 From: Ted Yang MD [...] going to need operative fixation. I did job placement counselor her on signs and symptoms of compartment syndrome and reasons to return. She will be discharged home with analgesics and orthopedic follow-up. Treatment Plan: [] Disposition: Discharge Impression: 1. Distal radius fracture of the left wrist 2. Hematoma block 3. Fracture reduction 4. Splint by ED physician This note was generated with Microstaq dictation software. It may contain incorrect words, spelling, and punctuation that were not noted in review of the chart prior to signing ED Disposition - Plan for ED Patient: Chief Complaint: Upper Extremity Injury Instructions: ED Fx Colles Wrist Redu Requ Prescriptions: Hydrocodone Bitart/Apap 5-325 [[place] 5MG-325MG] 1 tab PO Q6H PRN PRN [...] your Primary Care Provider. Call [facility] ([phone]) or report to the closest Emergency Room. Call 911 if necessary. 09/13/17 0508 <Electronically signed by Ted Yang MD> Date Ted Yang MD Cosigner Signature (If Indicated): Date CC: Twan Coy MD WRIST MIN 3 VIEWS Observed: 09/13/2017 Status: F Source: JAMES 4:17 AM [facility] REPOSITORY [facility] Imaging Services [address] [place] [address] Wrist min 3 Views MR#: [id number] Acct: [id number] Name: KWAME WEBBER Rep #: [id number] : 1945 F 72 From: Miguel Giang PCP: Twan oCy MD Status: REG ER Study: Wrist min 3 Views Date of Exam: 09/13/17 Exam# [id number] Ordering Dr: Ted Yang MD STUDY: X-RAY [...] CC: Ted Yang MD; Twan Coy MD Associate Programmer Analyst: Signed WRIST MIN 3 VIEWS Observed: 09/13/2017 Status: F Source: PO[place] 3:17 AM [facility] REPOSITORY [facility] Imaging Services [address] [place] [address] Wrist min 3 Views MR#: [id number] Acct: [id number] Name: KWAME WEBBER Rep #: [id number] : 1945 F 72 From: Miguel Giang PCP: Twan Coy MD Status: REG ER Study: Wrist min 3 Views Date of Exam: 09/13/17 Exam# [id number] Ordering Dr: Ted Yang MD STUDY: X-RAY [...] CC: Ted Yang MD; Twan Coy MD Associate Programmer Analyst: Signed RE-EVALUATION - PT (1) Observed: 09/08/2017 Status: F Source: PO[place]OOKOUT 9:25 AM [facility] REPOSITORY [facility] [address] [place] [address]. [address] [place] [address] Fax REEVALUATION / MEDICARE RECERTIFICATION PHYSICAL THERAPY MR#: [id number] Acct: [id number] Name: KWAME WEBBER Rep #: [id number] : 1945 72 From: Susan You DPT [...] do not hesitate to contact me at [phone] by phone or if you have questions or concerns regarding this new plan of care! Sincerely, Susan You <Electronically signed by Susan You DPT> 09/08/17 0925 CC: Madhav Saba MD; Twan Coy MD ELR Signed For Medicare only, by signing this I certify the plan of care. Physicians Signature Date PT COMMUNICATION Observed: 08/17/2017 Status: F Source: PO[place]OOKOUT 9:31 AM [facility] REPOSITORY [facility] [address] [place] [address] Fax REHABILITATION SERVICES PROGRESS NOTE MR#: [id number] Acct: [id number] Name: KWAME WEBBER Rep #: [id number] : 1945 72 From: Maurizio Fairbanks DPT, OCS, CSCS Referring Dr.: Madhav Saba MD Status: REG RCR Insurance: MEDICARE PART A B AARP PT Communication Note 08/16/[address] Madhav Saba MD , Thank you for the referral of Kwame Webber to [facility] for balance assessment. I have [...] Maurizio Fairbanks, YAQUELIN, OC Contact Information 08/17/17 1396 <Electronically signed by Maurizio Fairbanks DPT, OCS, CSCS> Date Maurizio Fairbanks DPT, OCS, CSCS Cosigner Signature (if applicable): Date CC: Madhav Saba MD; Twan Coy MD Signed For Medicare only, by signing this I certify the plan of care. Physicians Signature Date DOWNTIME REPORT Observed: 08/12/2017 Status: F Source: [place] 2:01 PM [facility] REPOSITORY [facility] Medical Records Department [address] [place] [address] Downtime Report MR#: [id number] Acct: [id number] Name: KWAME WEBBER Rep #: [id number] : 1945 72 From: Kishan Blount PCP: Twan Coy MD Status: REG CLI This patient was seen during an EMR downtime July 26, 2017 - August 02, 2017. This patient may have a combination of paper and electronic documentation or all paper documentation. All documentation is viewable within the e-chart portion of [facility] for each patient visit. INITAL EVALUATION (1) Observed: 08/09/2017 Status: F Source: [place] - PT 11:06 AM [facility] REPOSITORY [facility] [address] [place] [address] Fax REHABILITATION SERVICES INITIAL EVALUATION MR#: [id number] Acct: [id number] Name: KWAME WEBBER Rep #: [id number] : 1945 72 From: Susan You DPT [...] to be FAXED BACK to us at [phone] for Medicare purposes. Please let me know [...] Status: F Source: JAMES (TSH) 9:32 AM [facility] REPOSITORY Order Comment: Is Patient Taking Vitamins or Folic Acid Supplements? N TYPE CODE TESTS RESULT OUT OF RANGE REFERENCE UNITS LAB L501.9520 0.358-3.74 uIU/mL Normal TSH 3.66 Performed By: #### L501.9520, L505.7010, L506.0250 #### [facility] [address] [place], [address] RHEUMATOID FACTOR Collected: 07/30/2017 Status: F Source: JAMES 9:32 AM [facility] REPOSITORY Order Comment: Is Patient Taking Vitamins or Folic Acid Supplements? N TYPE CODE TESTS RESULT OUT OF RANGE REFERENCE UNITS LAB L505.7010 <15 IU/mL Normal RHEUMATOID FAC < 10.0 Performed By: #### L501.9520, L505.7010, L506.0250 #### [facility] [address] [place], [address] FOLATES, (FOLIC ACID) Collected: 07/30/2017 Status: F Source: JAMES 9:32 AM [facility] REPOSITORY Order Comment: Is Patient Taking Vitamins or Folic Acid Supplements? N TYPE CODE TESTS RESULT OUT OF RANGE REFERENCE UNITS LAB L506.0250 3.1-55.4 ng/mL Normal FOLATES 42.00 Performed By: #### L501.9520, L505.7010, L506.0250 #### [facility] [address] [place], [address] ERYTHROCYTE SED RATE Collected: 07/30/2017 Status: F Source: JAMES 9:32 AM [facility] REPOSITORY TYPE CODE TESTS RESULT OUT OF RANGE REFERENCE UNITS LAB L102.0000 0-30 mm/hr Normal SED RATE 13 Performed By: #### L101.9900 #### [facility] [address] [place], [address] VITAMIN B12 Collected: 07/30/2017 Status: F Source: JAMES 9:32 AM [facility] REPOSITORY TYPE CODE TESTS RESULT OUT OF RANGE REFERENCE UNITS LAB L503.0105 211-911 pg/mL Normal Vitamin B12 637 Performed By: #### L503.0105, L3890.6005 #### [facility] [address] [place], [address] HIV - [facility] Collected: 07/30/2017 Status: F Source: JAMES 9:32 AM [facility] REPOSITORY TYPE CODE TESTS RESULT OUT OF RANGE REFERENCE UNITS LAB L3890.6005 Nonreactive Normal HIV - [facility] Non-Reactive Performed By: #### L503.0105, L3890.6005 #### [facility] [address] [place], [address] ANTINUCLEAR ANTIBODIES Collected: 07/30/2017 Status: F Source: JAMES DIRECT 9:32 AM [facility] REPOSITORY TYPE CODE TESTS RESULT OUT OF RANGE REFERENCE UNITS LAB L3100.5475 Normal POLA-DIRECT Result Comment: TEST RESULT UNITS REF INTERVAL Antiextractable Nuclear Ag SHERIFF Antibodies <0.2 AI 0.0 - 0.9 Romero Antibodies <0.2 AI 0.0 - 0.9 Antinuclear Antibodies Direct POLA Direct Negative Negative [facility]. ORIGINAL REPORT ON FILE IN LAB CONTAINS ADDITIONAL TEST SITE INFORMATION. Performed By: #### L3100.5475 #### [facility] (refer to report for specific site) refer to report for address and phone number HEPATITIS C ANTIBODIES Collected: 07/30/2017 Status: F Source: JAMES 9:32 AM [facility] REPOSITORY Order Comment: Specimen Comment: A duplicate [...] with a HCV Nucleic Acid Amplification test ([id number]). Performed at: [address] [id number] Land Checker: Pierce Mccormack PhD, Phone: [phone] Performed By: #### L3100.0625, L3100.5861, L3200.4513 #### [facility] (refer to report for specific site) refer to report for address and phone number PROTEIN ELECTROPH, S Collected: 07/30/2017 Status: F Source: JAMES 9:32 AM [facility] REPOSITORY Order Comment: Specimen Comment: A duplicate [...] scan will follow via computer, mail, or post production assistant delivery. LAB L3100.4340 . Normal NOTE: Comment Result Comment: The SPE pattern appears essentially unremarkable. Evidence of monoclonal protein is not apparent. Performed By: #### L3100.0625, L3100.3450, L3200.1275 #### [facility] (refer to report for specific site) refer to report for address and phone number IMMUNOFIXATION, SERUM Collected: 07/30/2017 Status: F Source: [place] 9:32 AM [facility] REPOSITORY Order Comment: Specimen Comment: A duplicate report has been generated due to demographic Specimen Comment: updates. TYPE CODE TESTS RESULT OUT OF RANGE REFERENCE UNITS LAB L3200.4442 975-0069 mg/dL Low IMMUNO G 683 LAB L3200.1400 64-422 mg/dL Normal IMMUNO A 218 LAB L3200.1500 26-217 mg/dL Normal IMMUNOGL M 67 LAB L3200.1505 . Normal JAZIEL RESULT,S Comment Result Comment: No monoclonality detected. Performed By: #### L3100.0625, L3100.3450, L3200.1275 #### [facility] (refer to report for specific site) refer to report for address and phone number EMERGENCY DEPARTMENT Observed: 07/26/2017 Status: F Source: [place] SUMMARY 12:18 AM [facility] REPOSITORY [facility] Medical Records Department [address] [place] [address] Emergency Department Summary 07/25/172012 MR#: [id number] Acct: [id number] Name: KWAME WEBBER Rep #: [id number] : 1945 72 From: Dash Arzate MD [...] toe contusion This note was generated with Microsta[employer] dictation software. It may contain incorrect words, [...] your Primary Care Provider. Call [facility] ([phone]) or report to the closest Emergency Room. Call 911 if necessary. 07/26/17 0018 <Electronically signed by Dash Arzate MD> Date Dash Arzate MD Cosigner Signature (If Indicated): Date CC: Twan Coy DISCHARGE INSTRUCTION Observed: 07/26/2017 Status: F Source: JAMES 12:18 AM [facility] REPOSITORY [facility] Medical Records Department [address] [place] [address] Discharge Instruction 07/25/172017 MR#: [id number] Acct: [id number] Name: KWAME WEBBER Rep #: [id number] : 1945 72 From: Dash Arzate MD PCP: Twan Coy Status: [facility] ED Disposition - Plan for ED Patient: [...] problems, contact your Primary Care Provider. Call [employer] [facility] ([phone]) or report to the closest Emergency Room. Call 911 if necessary. 07/26/17 0018 <Electronically signed by Dash Arzate MD> Date Dash Arzate MD Cosigner Signature (If Indicated): Date CC: Twan Coy CBC W/DIFF, AUTOMATED Collected: 07/25/2017 Status: F Source: [place] 7:35 PM [facility] REPOSITORY TYPE CODE TESTS RESULT OUT OF [...] Lymph 1.27 Performed By: #### L100.0100 #### [facility] [address] [place], [address] BASIC METABOLIC Collected: 07/25/2017 Status: F Source: [place] PROFILE ([facility]) 7:35 PM [facility] REPOSITORY TYPE CODE TESTS RESULT OUT OF [...] GAP 9 Performed By: #### L500.2500 #### [facility] [address] [place], [address] BRAIN/HEAD WITHOUT Observed: 07/25/2017 Status: F Source: [place] CONTRAST 7:34 PM [facility] REPOSITORY [facility] Imaging Services [address] [place] [address] Brain/Head without Contrast MR#: [id number] Acct: [id number] Name: KWAME WEBBER Rep #: [id number] : 1945 F 72 From: Carlos Salcedo MD PCP: Twan Coy Status: REG ER Study: Brain/Head without Contrast Date of Exam: 07/25/17 Exam# [id number] Ordering Dr: Dash Arzate MD STUDY: CT [...] , CC: Dash Arzate MD; Twan Coy Associate Programmer Analyst: Signed BRAIN W/WO CONTRAST Observed: 07/06/2017 Status: F Source: JAMES 12:52 PM [facility] REPOSITORY [facility] Imaging Services [address] [address] Brain W/WO Contrast MR#: [id number] Acct: [id number] Name: KWAME WEBBER Rep #: [id number] : 1945 F 72 From: Domenic Padilla PCP: Twan Coy Status: REG CLI Study: Brain W/WO Contrast Date of Exam: 07/06/17 Exam# [id number] Ordering Dr: KALLIE DEY STUDY: MRI BRAIN [...] support , CC: KALLIE DEY; Twan Coy Associate Programmer Analyst: Signed BASIC METABOLIC Collected: 06/28/2017 Status: F Source: JAMES PROFILE (BMP) 10:13 AM [facility] REPOSITORY TYPE CODE TESTS RESULT OUT OF [...] GAP 9 Performed By: #### L500.2500 #### [facility] [address] [place], [address] BASIC METABOLIC Collected: 06/10/2017 Status: F Source: JAMES PROFILE (BMP) 9:41 AM [facility] REPOSITORY Order Comment: BUN,CREATININE FOR DR DEY [...] GAP 9 Performed By: #### L500.2500 #### [facility] [address] [place] [address]. [place], [place], [id number] RENAL PROFILE Collected: 05/19/2017 Status: F Source: [place] 11:14 AM [facility] REPOSITORY TYPE CODE TESTS RESULT OUT OF [...] CO2 32.0 Performed By: #### L500.3600 #### [facility] [address] [place], [place], [address] CBC-COMPLETE BLOOD CNT Collected: 05/19/2017 Status: F Source: JAMES NO DIFF 11:14 AM [facility] REPOSITORY TYPE CODE TESTS RESULT OUT OF [...] MPV 11.0 Performed By: #### L100.0500 #### [facility] [address] [facility] [place], [place], [address] VITAMIN D,25 HYDROXY Collected: 05/19/2017 Status: F Source: JAMES 11:14 AM [facility] REPOSITORY TYPE CODE TESTS RESULT OUT OF RANGE REFERENCE UNITS LAB L506.1000 29.95-100.01 ng/mL Normal Vitamin D 58.1 25-OH Result Comment: Vitamin D 25(OH) Status Range Deficiency <20 ng/mL (50nmol/L) Insuffciency 20 - 30 ng/mL (50 - 75 nmol/L) Sufficiency 30 - 100 ng/mL (75 - 250 nmol/L) Toxicity >100 ng/mL (>250 nmol/L) Performed By: #### L506.1000 #### [facility] [address] [place], [address] PTHIN Collected: 05/19/2017 Status: F Source: JAMES 11:14 AM [facility] REPOSITORY TYPE CODE TESTS RESULT OUT OF RANGE REFERENCE UNITS LAB L509.1000 18.4-80.1 pg/mL Normal PTHIN 41.9 Result Comment: Please Note: PTH INTACT METHOD AND REFERENCE RANGE CHANGE Effective 02/10/2017. Performed By: #### L509.1000 #### [facility] [address] [place], [place], [address] PROTEIN+CREATININE Collected: Status: F Source: JAMES RATIO,URINE 05/19/2017 11:14 AM [facility] REPOSITORY Order Comment: PATIENT UNABLE TO VOID. BRINGING SPECIMEN BACK IN. PT RETURNED AT 1700 WITH URINE/RHICKS TYPE CODE TESTS RESULT OUT OF RANGE REFERENCE UNITS LAB L501.1200 NO RANGE EST. mg/dL Normal UR CREAT 95.10 LAB L501.1930 <11.9 mg/dL Normal 9.0 PROTEIN,UR.R AN. LAB L501.1940 0-200 mg/g CRE Normal PROT:CRE 95 RATIO Performed By: #### L501.0900 #### [facility] [address] [place], [address] COMPREHENSIVE METABOLIC Collected: 04/28/2017 Status: F Source: JAMES PROFIL 4:52 PM [facility] REPOSITORY TYPE CODE TESTS RESULT OUT OF [...] 10 Performed By: #### L500.4050, L501.9520 #### [facility] [address] [place], [address] THYROID STIM HORMONE Collected: 04/28/2017 Status: F Source: JAMES (TSH) 4:52 PM [facility] REPOSITORY TYPE CODE TESTS RESULT OUT OF RANGE REFERENCE UNITS LAB L501.9520 0.358-3.74 uIU/mL Normal TSH 2.14 Performed By: #### L500.4050, L501.9520 #### [facility] [address] [place], [address] ALLERGIES ALLERGIES DATE TYPE / CODE NAME / CODE REACTION SEVERITY SOURCE 03/16/2018 Drug Penicillins/[id number] Rash Unknown [place] Allergy/416 476(RXNORM) Community 733183([facility] ED CT) Repository 03/16/2018 Drug adhesive Rash Unknown [place] Allergy/416 tape/[id number](RXN Community 194978([facility] ED CT) Repository 12/03/2016 DRUG LEVOFLOXACIN Mental g [facility] INGREDI/419 Other [place] 833848([facility] ED CT) /[id number] LEVOFLOXACIN [facility] 6([facility] [employer] [facility] CT) Repository ENCOUNTERS ENCOUNTERS ADMIT/DISCHARGE ACCOUNT NUMBER ADMITTING ENCOUNTER LOCATION SOURCE CLASS 03/16/2018/03/16/19 [id number] Ambulatory BMSBuilding: [place] 19 [facility] Repository 02/07/2018/02/08/20 [id number] Ambulatory [address] ding:SDC Repository 02/07/2018/02/08/20 [id number] Ambulatory BMSBuilding: [place] 18 BMS.CF.[facility] Repository 02/02/2018 [id number] Ambulatory BMSBuilding: [place] [facility] Repository 01/26/[id number] [facility] ding:PT Repository 01/25/2018/01/26/20 [id number] Ambulatory BMSBuilding: [place] 18 BMS[facility] Repository 01/24/2018 [id number] [facility] [place] [facility] 01/24/[id number] [facility] ding:CVS Repository 12/29/2017/12/30/19 [id number] Ambulatory [address] ding:PT Repository 12/25/2017/12/27/19 [id number] [place], Inpatient [place] 18 [facility] ding:PCURoom Repository : GTL310Mso: 1 12/25/2017 [id number] [place], Ambulatory BMSBuilding: [place] Ar[place] BMS.[facility] Repository 12/25/2017/12/27/19 [id number] Ambulatory BMSBuilding: [place] 18 [facility] Repository 12/25/2017 [id number] [place], Ambulatory BMSBuilding: [place] Aranda BMS.[facility] Repository 12/25/2017 [id number] [place], Ambulatory BMSBuilding: [place] Aranda BMS.[facility] Repository 12/23/[id number] [facility] ding:LAB Repository 12/15/2017/12/16/19 [id number] Emergency [address] ding:ED Repository 12/02/2017/12/03/19 [id number] Ambulatory BMSBuilding: [place] 18 BMS.[facility] Repository 12/01/2017 [id number] Ambulatory BMSBuilding: [place] BMS.[facility] Repository 09/20/2017/09/21/19 [id number] Ambulatory [address] ding:SDC Repository 09/20/2017 [id number] Ambulatory BMSBuilding: [place] [facility] Repository 09/13/2017/09/14/19 [id number] Emergency [address] ding:ED Repository 07/30/[id number] [facility] ding:LAB Repository 07/25/2017/07/26/19 [id number] Emergency [address] ding:ED Repository 07/06/[id number] [facility] ding:MRI Repository 06/28/[id number] [facility] ding:LAB Repository 06/17/2017 [id number] Ambulatory [facility] Repository 06/17/2017 [id number] Ambulatory [facility] MEDICAL Repository CENTERBuildi ng:[facility] 06/10/[id number] [facility] ding:LAB Repository 05/19/[id number] [facility] ding:LAB Repository 04/28/2017 [id number] [facility] ding:BFHLAB Repository PAYERS PAYERS ENCOUNTER GUARANTOR PAYER SUBSCRIBER SOURCE 03/16/2018 KWAME A Primary KWAME A [place] [id number] Insurance:MEDICARE WALTONDOB: Community INVERNESS PART A BPolicy Number: [id number] [id number] Repository [address]Fwo: (330) Date:2018-03-07 [phone] () 03/16/2018 Secondary KWAME A [place] Insurance:AARPPolicy WALTONDOB: Community Number: [id number] Hospital [id number] Repository Date:2598-61-67[address], [place] [address]EC: 03/16/2018 Tertiary NOT GIVENUNK [place] Insurance:SELF PAY [facility] Number: Effective Repository Date:2018-03-09 02/07/2018 [place] Primary KWAME A [place] [id number] Insurance:MEDICARE WALTONDOB: Community INVERNESS PART A BPolicy Number: [id number] [id number] Repository [address]Cyc: (330) Date:2018-01-25 [phone] () 02/07/2018 Secondary KWAME A [place] Insurance:AARPPolicy WALTONDOB: Community Number: [id number] Hospital [id number] Repository Date:9462-37-16[address], [place] [address]SV: 02/07/2018 Tertiary NOT GIVENUNK [place] Insurance:SELF PAY [facility] Number: Effective Repository Date:2018-02-07 02/07/2018 [place] Primary KWAME A [place] [id number] Insurance:MEDICARE WALTONDOB: Community INVERNESS PART A BPolicy Number: [id number], [place] [id number] Repository [address]Vfp: (330) Date:2018-01-25 () 02/07/2018 Secondary KWAME A [place] Insurance:AARPPolicy WALTONDOB: Community Number: [id number] Hospital [id number] Repository Date:5872-27-95[address], [place] [address]RZ: 02/07/2018 Tertiary NOT GIVENUNK [place] Insurance:SELF PAY [facility] Number: Effective Repository Date:2018-02-07 02/02/2018 [place] Primary KWAME A [place] [id number] Insurance:MEDICARE WALTONDOB: Community INVERNESS PART A BPolicy Number: [id number] [place], [place] [id number] Repository [address]Coz: (330) Date:2018-01-25354 () 02/02/2018 Secondary KWAME A [place] Insurance:AARPPolicy WALTONDOB: Community Number: [id number] Hospital [id number] Repository Date:7230-37-08[address]Z[address], [place] [address]FH: 02/02/2018 Tertiary NOT GIVENUNK [place] Insurance:SELF PAY [facility] Hospital Number: Effective Repository Date:2018-02-02 01/26/2018 [place] Primary KWAME A [place] [id number] Insurance:MEDICARE WALTONDOB: Community INVERNESS PART A BPolicy Number: [id number] [place], [place] [id number] Repository [address]Ebb: (330) Date:2008-04-22 () 01/26/2018 Secondary KWAME A [place] Insurance:AARPPolicy WALTONDOB: Community Number: [id number] Hospital [id number] Repository Date:4676-32-42ZM [address], [place] [address]TO: 01/26/2018 Tertiary NOT GIVENUNK [place] Insurance:SELF PAY Community [facility] Number: Effective Repository Date:2018-01-21 01/25/2018 KWAME A Primary KWAME A [place] [id number] Insurance:MEDICARE WALTONDOB: Community INVERNESS PART A BPolicy Number: [id number], [place] [id number] Repository [address]Fmr: (137) Date:2017-12-28527 () 01/25/2018 Secondary KWAME A [place] Insurance:AARPPolicy WALTONDOB: Community Number: [id number] Hospital [id number] Repository Date:6304-74-51FZ [address]TV[place], [place] [address]IV: 01/25/2018 Tertiary NOT GIVENUNK [place] Insurance:SELF PAY [facility] Hospital Number: Effective Repository Date:2018-01-24 01/24/2018 [place] Primary KWAME A [place] [id number] Insurance:MEDICARE WALTONDOB: Community INVERNESS PART A BPolicy Number: [id number] [place], [place] [id number] Repository [address]Ooq: (182) Date:2018-01-206240 () 01/24/2018 Secondary KWAME A [place] Insurance:AARPPolicy WALTONDOB: Community Number: [id number] Hospital [id number] Repository Date:5241-08-91[address]TQII[place], [place] [address]KS: 01/24/2018 Tertiary NOT GIVENUNK [place] Insurance:SELF PAY [facility] Hospital Number: Effective Repository Date:2018-01-24 01/24/2018 [place] Primary KWAME A [place] [id number] Insurance:MEDICARE WALTONDOB: Community INVERNESS PART A BPolicy Number: [id number] [id number] Repository [address]Mtq: (635) Date:2018-01-202062 () 01/24/2018 Secondary KWAME A [place] Insurance:AARPPolicy WALTONDOB: Community Number: [id number] Hospital [id number] Repository Date:1814-66-01OW [address], [place] [address]VC: 01/24/2018 Tertiary NOT GIVENUNK [place] Insurance:SELF PAY Community [facility] Hospital Number: Effective Repository Date:2018-01-20 12/29/2017 [place] Primary KWAME A [place] [id number] Insurance:MEDICARE WALTONDOB: Community INVERNESS PART A BPolicy Number: [id number] [place], [place] [id number] Repository [address]Fxx: (575) Date:2008-04-22 [phone] () 12/29/2017 Secondary KWAME A [place] Insurance:AARPPolicy WALTONDOB: Community Number: [id number] Hospital [id number] Repository Date:1679-07-88ZS [address]AVJIWPR, [place] [address]LD: 12/29/2017 Tertiary NOT GIVENUNK [place] Insurance:SELF PAY [facility] Hospital Number: Effective Repository Date:2017-08-04 12/25/2017 [place] Primary KWAME A [place] [id number] Insurance:MEDICARE WALTONDOB: Community INVERNESS PART A BPolicy Number: [id number] [place], [place] [id number] Repository [address]Ylw: (330) Date:2017-12-24 [phone] () 12/25/2017 Secondary KWAME A [place] Insurance:AARPPolicy WALTONDOB: Community Number: [id number] Hospital [id number] Repository Date:7062-03-56DG [address]Z[place]HK[place], [place] [address]FN: 12/25/2017 Tertiary NOT GIVENUNK [place] Insurance:SELF PAY Community [facility] Hospital Number: Effective Repository Date:2017-12-24 12/25/2017 [place] Primary KWAME A [place] [id number] Insurance:MEDICARE WALTONDOB: Community INVERNESS PART A BPolicy Number: [id number] [place] [id number] Repository [address]Oke: (330) Date:2017-12-24 () 12/25/2017 Secondary KWAME A [place] Insurance:AARPPolicy WALTONDOB: Community Number: [id number] Hospital [id number] Repository Date:9827-82-48[address]YRNJ, [place] [address]EA: 12/25/2017 Tertiary NOT GIVENUNK [place] Insurance:SELF PAY [facility] Hospital Number: Effective Repository Date:2017-12-25 12/25/2017 [place] Primary KWAME A [place] [id number] Insurance:MEDICARE WALTONDOB: Community INVERNESS PART A BPolicy Number: [id number] [place], [place] [id number] Repository [address]Qhq: (330) Date:2017-12-24074 () 12/25/2017 Secondary KWAME A [place] Insurance:AARPPolicy WALTONDOB: Community Number: [id number] Hospital [id number] Repository Date:8803-97-38[address]SZJQXHX, [place] [address]IY: 12/25/2017 Tertiary NOT GIVENUNK [place] Insurance:SELF PAY [facility] Hospital Number: Effective Repository Date:2017-12-25 12/25/2017 TRAM S Primary KWAME A [place] [id number] Insurance:MEDICARE WALTONDOB: Community INVERNESS PART A BPolicy Number: [id number] [place], [place] [id number] Repository [address]Gnd: (785) Date:2017-12-24033 () 12/25/2017 Secondary KWAME A [place] Insurance:AARPPolicy WALTONDOB: Community Number: [id number] Hospital [id number] Repository Date:8756-97-19MG [address]QVWUJMS, [place] [address]BE: 12/25/2017 Tertiary NOT GIVENUNK [place] Insurance:SELF PAY [facility] Number: Effective Repository Date:2017-12-24 12/25/2017 [place] Primary KWAME A [place] [id number] Insurance:MEDICARE WALTONDOB: Community [place] PART A BPolicy Number: [id number] [id number] Repository 43977Zxu: (330) Date:2017-12-24 [phone] () 12/25/2017 Secondary KWAME A [place] Insurance:AARPPolicy WALTONDOB: Community Number: [id number] Hospital [id number] Repository Date:8779-56-40RY [facility] 427670LMUDE[place]M, [place] [address]TK: 12/25/2017 Tertiary NOT GIVENUNK [place] Insurance:SELF PAY [facility] Number: Effective Repository Date:2017-12-25 12/23/2017 [place] Primary KWAME A [place] [id number] Insurance:MEDICARE WALTONDOB: Community [place] PART A BPolicy Number: [id number] [place] [id number] Repository 18885Szf: (912) Date:2017-12-23460 () 12/23/2017 Secondary KWAME A [place] Insurance:AARPPolicy WALTONDOB: Community Number: [id number] Hospital [id number] Repository Date:9307-23-90PZ [address]CGRNAVQ, [place] [address]PP: 12/23/2017 Tertiary NOT GIVENUNK [place] Insurance:SELF PAY [facility] Number: Effective Repository Date:2017-12-23 12/15/2017 [place] Primary KWAME A [place] [id number] Insurance:MEDICARE WALTONDOB: Community [place] PART A BPolicy Number: [id number] [place] [id number] Repository 45094Dfa: (330) Date:2017-12-15 [phone] () 12/15/2017 Secondary KWAME A [place] Insurance:AARPPolicy WALTONDOB: Community Number: [id number] [place] [address] [id number] Repository Date:7148-55-41FR [address]FVDUXDO, [place] [address]QV: 12/15/2017 Tertiary NOT GIVENUNK [place] Insurance:SELF PAY [facility] Number: Effective Repository Date:2017-12-15 12/02/2017 [place] Primary [place]WAME [place] [id number] Insurance:MEDICARE WALTONDOB: Community [place] PART A BPolicy Number: [id number] [id number] Repository 14[address]Lsv: (408) Date:2017-11-09 [phone] () 12/02/2017 Secondary KWAME A [place] Insurance:AARPPolicy WALTONDOB: Community Number: [id number] Hospital [id number] Repository Date:9706-11-34LT [address]CCQCGRN, [place] [address]XI: 12/02/2017 Tertiary NOT GIVENUNK [place] Insurance:SELF PAY [facility] Number: Effective Repository Date:2017-12-02 12/01/2017 [place] Primary [place]WAME [place] [id number] Insurance:MEDICARE WALTONDOB: Community [place] PART A BPolicy Number: [id number], [place] [id number] Repository [address]Kcl: (330) Date:2017-12-01 [phone] (HP) 12/01/2017 Secondary KWAME A [place] Insurance:AARPPolicy WALTONDOB: Community Number: [id number] Hospital [id number] Repository Date:8279-10-04UI [facility] 993822HDDHGIU, [place] [address]WB: 12/01/2017 Tertiary NOT GIVENUNK [place] Insurance:SELF PAY [facility] Number: Effective Repository Date:2017-12-01 09/20/2017 [place] Primary KWAME A [place] [id number] Insurance:MEDICARE WALTONDOB: Community [place] PART A BPolicy Number: [id number], [place] [id number] Repository [address]Csn: (520) Date:2017-09-16 [phone] () 09/20/2017 Secondary KWAME A [place] Insurance:AARPPolicy WALTONDOB: Community Number: [id number] Hospital [id number] Repository Date:6716-11-97HP [address]IJEXFSK, [place] [address]RK: 09/20/2017 Tertiary NOT GIVENUNK [place] Insurance:SELF PAY [facility] Number: Effective Repository Date:2017-09-16 09/20/2017 [place] Primary [place]WAME [place] [id number] Insurance:[facility]ARE [facility]: Community [place] PART A BPolicy Number: [id number], [place] [id number] Repository [address]Teb: (330) Date:2017-09-162048 () 09/20/2017 Secondary KWAME A [place] [facility] SANTEEDOB: Community Number: [id number] Hospital [id number] Repository Date:8740-48-64DI [address]HHJLZRF, [place] [address]PR: 09/20/2017 Tertiary NOT GIVENUNK [place] Insurance:SELF PAY [facility] Number: Effective Repository Date:2017-09-20 09/13/2017 [place] Primary [place]WAME [place] [id number] Insurance:MEDICARE WALTONDOB: Community [place] PART A BPolicy Number: [id number], [place] [id number] Repository [address]Vxt: (330) Date:2017-09-13 [phone] () 09/13/2017 Secondary [place]AME [place] [facility] Number: [id number] Hospital [id number] Repository Date:3290-53-30KP [address]ECBMSEP, [place] [address]EI: 09/13/2017 Tertiary NOT GIVENUNK [place] Insurance:SELF PAY [facility] Number: Effective Repository Date:2017-09-13 07/30/2017 [place] Primary [place]WAME [place] [id number] Insurance:MEDICARE WALTONDOB: Community [place] PART A BPolicy Number: [id number], [place] [id number] Repository [address]Ihq: (330) Date:2017-07-30 () 07/30/2017 Secondary KWAME A [place] Insurance:AARPPolicy WALTONDOB: Community Number: [id number] Hospital [id number] Repository Date:7265-77-88QU [address]MAIIPZU, [place] [address]RA: 07/30/2017 Tertiary NOT GIVENUNK [place] Insurance:SELF PAY [facility] Number: Effective Repository Date:2017-07-30 07/25/2017 [place] Primary [place]WAME [place] [id number] Insurance:MEDICARE WALTONDOB: Community [place] PART A BPolicy Number: [id number], [place] [id number] Repository 35897Heq: (330) Date:2017-07-25 () 07/25/2017 Secondary KWAME A [place] Insurance:AARPPolicy WALTONDOB: Community Number: [id number] Hospital [id number] Repository Date:0910-78-01MJ [address]ZYQMXED, [place] [address]AS: 07/25/2017 Tertiary NOT GIVENUNK [place] Insurance:SELF PAY [facility] Number: Effective Repository Date:2017-07-25 07/06/2017 [place] Primary KWAME A [place] [id number] Insurance:MEDICARE WALTONDOB: Community [place] PART A BPolicy Number: [id number], [place] [id number] Repository 35675Hpt: (330) Date:2017-07-05 () 07/06/2017 Secondary KWAME A [place] Insurance:AARPPolicy WALTONDOB: Community Number: [id number] Hospital [id number] Repository Date:9751-14-35JU [address]WYEZOOT, [place] [address]JD: 07/06/2017 Tertiary NOT GIVENUNK [place] Insurance:SELF PAY Community [facility] Number: Effective Repository Date:2017-07-05 06/28/2017 [place] Primary KWAME A [place] [id number] Insurance:MEDICARE WALTONDOB: Community [place] PART A BPolicy Number: [id number], [place] [id number] Repository [address]46[address]Dbb: (330) Date:2017-06-28 (HP) 06/28/2017 Secondary KWAME A [place] Insurance:AARPPolicy WALTONDOB: Community Number: [id number] Hospital [id number] Repository Date:0569-73-34CW [address]ZBHZYLK, [place] [address]LC: 06/28/2017 Tertiary NOT GIVENUNK [place] Insurance:SELF PAY [facility] Number: Effective Repository Date:2017-06-28 06/17/2017 KWAME WALTONDOB: Primary KWAME WALTONDOB: [employer] Insurance:MEDICARE A [id number] INVERNESS AND BPolicy Number: Repository [place], [place] [id number] [address]Xss: (330) Date: (HP) 06/17/2017 Secondary KWAME WALTONDOB: [employer] [facility] Insurance:[facility] [id number] [facility] SUPPLEMENTPolicy Repository Number: [id number] Date: 06/10/2017 [place] Primary [place] [id number] Insurance:MEDICARE WALTONDOB: Community [place] PART A BPolicy Number: [id number], [place] [id number] Repository 147[address]Eut: (330) Date:2017-06-10 (HP) 06/10/2017 Secondary KWAME A [place] Insurance:AARPPolicy WALTONDOB: Community Number: [id number] Hospital [id number] Repository Date:6355-51-74KI [address]KLOCQLP, [place] [address]IE: 06/10/2017 Tertiary NOT GIVENUNK [place] Insurance:SELF PAY Community [facility] Number: Effective Repository Date:2017-06-10 05/19/2017 [place] Primary [place]WAME [place] [id number] Insurance:MEDICARE WALTONDOB: Community [place] PART A BPolicy Number: [id number], [place] [id number] Repository [address]Iss: (330) Date:2017-05-19 [phone] (HP) 05/19/2017 Secondary KWAME A [place] Insurance:AARPPolicy WALTONDOB: Community Number: [id number] [facility] [id number] Repository Date:0593-67-47NC [address] [address]TC: 05/19/2017 Tertiary NOT GIVENUNK [place] Insurance:SELF PAY [facility] Number: Effective Repository Date:2017-05-19 04/28/2017 [place] Primary KWAME A [place] [id number] Insurance:MEDICARE WALTONDOB: Community [place] PART A BPolicy Number: [id number], [place] [id number] Repository 23541Ajx: (139) Date:2017-04-28 [phone] (HP) 04/28/2017 Secondary [place]WAME A [place] Insurance:AARPPolicy WALTONDOB: Community Number: [id number] Hospital [id number] Repository Date:6263-56-42RU [address]INFZJOV, [place] [address]UU: 04/28/2017 Tertiary NOT GIVENUNK [place] Insurance:SELF PAY Community [facility] Number: Effective Repository Date:2017-04-28
== END | disposition home or self-care (01) ==
LOC: SDC 13:19
PROVIDERS: Family Provider Family Medicine; PCP Family Medicine; Referring Provider Surgery; Visit Provider Surgery
PROC: (CPT 35301; principal; 2018-02-07 06:55)
DX: I65.22 Occlusion and stenosis of left carotid artery (principal); I10 Essential (primary) hypertension; E11.22 Type 2 diabetes mellitus with diabetic chronic kidney disease; I12.9 Hypertensive chronic kidney disease with stage 1 through stage 4 chronic kidney disease, or unspecified chronic kidney disease; N18.3 Chronic kidney disease, stage 3 (moderate); I25.10 Atherosclerotic heart disease of native coronary artery without angina pectoris; Z53.09 Procedure and treatment not carried out because of other contraindication; Z95.5 Presence of coronary angioplasty implant and graft; E78.5 Hyperlipidemia, unspecified; E03.9 Hypothyroidism, unspecified; K21.9 Gastro-esophageal reflux disease without esophagitis; Z85.42 Personal history of malignant neoplasm of other parts of uterus; Z79.02 Long term (current) use of antithrombotics/antiplatelets; Z79.4 Long term (current) use of insulin; Z79.899 Other long term (current) drug therapy; Z79.82 Long term (current) use of aspirin; S62.102A Fracture of unspecified carpal bone, left wrist, initial encounter for closed fracture; X58.XXXA Exposure to other specified factors, initial encounter; Z86.73 Personal history of transient ischemic attack (TIA), and cerebral infarction without residual deficits
CPT/HCPCS: 35301; 36140; 36415; 80048; 82962; 85027; 93005; J7040; J7120

== ENCOUNTER 2018-03-24 08:50 | Inpatient (IN) | payer MEDICARE, OTHER, SELFPAY ==
[2018-02-07 06:04] VITALS: BMI 34.4
[2018-03-16 09:53] VITALS: BMI 34.4
[2018-03-21 11:01] LABS: Hematocrit 40.4 % (37-47); Hemoglobin 13.9 g/dl (12.0-15.0); Mean Corp Hgb Conc 34.4 g/gl (32-36); Mean Corpuscular Hgb 31.7 pg (27.0-32.0); Mean Platelet Vol. 11.2 fl (6.2-12.0); Platelet Count 153 K/mm3 (150-450); RBC Distribution Width CV 12.1 % (11.6-14.6); RBC Distribution Width SD 39.9 fl (35.1-43.9); Red Blood Count 4.39 M/mm3 (4.2-5.4); White Blood Count 6.7 K/mm3 (4.4-11.0)
[2018-03-21 11:11] LABS: Scan Indicated on CBC? Y/N NO
[2018-03-21 11:44] LABS: Anion Gap 7 (5-15); BUN 17 mg/dL (7-18); BUN/Creat Ratio 16.8 RATIO (10-20); Chloride 109 mmol/L (98-107); Creatinine, Serum 1.01 mg/dL (0.55-1.02); EST Glomerular Filtration Rate 57 mL/min (>60); Est Glom Filt Rate - Afr Amer 69 mL/min (>60); Glucose 184 mg/dL (74-106); Potassium 3.9 mmol/L (3.5-5.1); Sodium Level 142 mmol/L (136-145); Thyroid Stim Hormone (TSH) 1.45 uIU/mL (0.358-3.74)
[2018-03-24] VITALS (29 sets, daily range): BP systolic 108–224; BP diastolic 40–99; PULSE 69–91; RESP 15–21; TEMP 36.1–36.8; O2SAT 95–100; BMI 34.2
--- NOTE | 2018-03-24 | PLAQ_PTH ---
PATIENT: KWAME ZUÑIGA LOC: PCU U#:[id number] AGE/SX: 72/F ROOM: [facility] RE03/24/[address]: Dr. Elle Valiente DO : 1945 BED: 1 DIS: 03/25/2018 SPEC #: [id number] RECD: 03/24/18 14:51 STATUS: RENEE REQ #: [id number] JADE: 03/24/18 00:[address]: Shahbaz Young DEPT: SURGICAL PATHOLOGY RECD BY: Ankush Lora ENTERED: 03/25/18 09:08 SP TYPE: PLAQUE OTHR DR: DO Dr. Hany Starr DO Dr. Robert D Cebul, MD Dr. Scott Hannan, MD Tissues: PLAQUE Procedures: Decalcification bone/plaque Surgery Specimen Level III Comments: @ Ordering doctor for DEC edited from to @ juan daniel URBINA at 03/25/18 1025 @ Ordering doctor for SUIII edited from to @ juan daniel URBINA at 03/25/18 1025 @ Submitting doctor edited from to @ juan daniel URBINA at 03/25/18 1025 HEADER OPERATION: Left carotid endarterectomy PRE-OP DIAGNOSIS: Left carotid stenosis TISSUE SUBMITTED: Left carotid plaque MICROSCOPIC DIAGNOSIS Left carotid plaque, endarterectomy: Calcified atheromatous plaque consistent with severe stenosis. Focal benign histiocytic reaction. AM:slim 03/30/18 COMMENT Immunohistochemistry ([id number]) supports the above diagnosis. Case has been reviewed in consultation with Dr. Blackman who concurs with the above diagnosis. IDC:SJ GROSS DESCRIPTION Received in fixative is one container labeled with the patient's name and designated left carotid plaque. The specimen consists of two irregular fragments of yellow, indurated soft tissue that in aggregate measure 4 x 2 x 1 cm. The tissue cuts with a gritty sensation. The larger fragment is sectioned and submitted along with the smaller fragment in one cassette after decalcification. / AM:slim 03/25/18 TC:5 CPT: 03653, 85462
--- NOTE | 2018-03-24 | IMM_PTH ---
PATIENT: KWAME ZUÑIGA LOC: [facility] U#:[id number] AGE/SX: 72/F ROOM: [facility] RE03/24/[address]: Dr. Elle Valiente DO : 1945 BED: 1 DIS: 03/25/2018 SPEC #: [id number] RECD: 03/30/18 12:59 STATUS: SOUT REQ #: [id number] JADE: 03/24/18 00:[address]: Shahbaz Young DEPT: IMMUNOHISTOCHEMISTRY RECD BY: Kim Schmitz ENTERED: 03/30/18 13:00 SP TYPE: IMMUNO OTHR DR: DO Dr. Hany Starr DO Dr. Robert D Cebul, MD Dr. Ramnath S Ramanathan, MD Dr. Scott Hannan, MD Tissues: PLAQUE Procedures: MACRO (initial) P53 (add) Vimentin (add) Pankeratin (add) Comments: @ Ordering doctor for MACRO edited from to @ by CIARA at 03/30/18 1300 @ Ordering doctor for P53. edited from to @ by CIARA at 03/30/18 1300 @ Ordering doctor for VIM. edited from to @ by CIARA at 03/30/18 1300 @ Ordering doctor for PANK. edited from to @ by CIARA at 03/30/18 1300 @ Submitting doctor edited from to DR.RCEBUL Gayle URBINA at 03/30/18 1300 PHYSICIAN & INSTIT[facility] [address] [place], [place] [address] SPECIMEN INFORMATION: Tissue Source: Left carotid plaque Clinical Info: Left carotid stenosis Specimen Number: [id number] CPT code: 16853, 76876 x3 METHODOLOGY: Deparaffinized sections of prefer/formalin-fixed tissue or PAP/DQ stained slides are incubated with monoclonal/polyclonal antibodies/oligonucleotide probes. Localization is made via biotin free immunoperoxidase method. Appropriate controls are performed and reacted as expected. Results on target cell population are indicated in the following table: RESULTS: ANTIBODY / CLONE RESULT Macro (HAM-56) negative Vimentin (V9) positive AE1-3 (AE1/AE3/PCK26) negative P53 (DO-7) negative These tests were developed and their performance characteristics determined by [facility]. They may not have been cleared or approved by the U.S. Food and Drug Administration. The FDA has determined that such clearance or approval is not necessary. INTERPRETATION: Left carotid plaque, endarterectomy: Reactive changes of atherosclerotic plaque. AM:slim 03/30/18
[2018-03-24 09:40] LABS: Bedside Glucose 206 mg/dL (70-110)
--- NOTE | 2018-03-24 10:56 | DCINST_ITS ---
Discharge Diet: Light diet - advance as tolerated - if you have questions about your diet instructions, please talk to you doctor. Discharge Activity: May Not Drive - for 1 week or while taking narcotic pain medicine. May shower in (days): 3 - Shower on Wednesday Lifting Restrictions: 10 pounds Call your doctor if your incision/area has: Continuous Slow Oozing, Sudden Increased Bleeding, Increased Pain/ Swelling, Increased Redness, Foul Smelling Discharge Call your doctor if you observe: Fever of 101 or Higher Suture Line Care: Avoid Pulling/Pushing, Avoid Pinching/Bending Additional Dressing/Incision Instructions:: Leave steri-strips in place for 1 week. You may cover and protect the incision with dry gauze as needed for comfort Allergies/Adverse Reactions: Allergies adhesive tape Allergy (Verified 03/17/18 13:20) Rash Penicillins Allergy (Verified 03/17/18 13:20) Rash Medications to take at Discharge Clopidogrel Bisulfate [Plavix] 75 mg PO DAILY 09/12/16 Insulin Aspart [Novolog Flexpen] 10 units SUBCUT BREAKFAST 09/12/16 Insulin Aspart [Novolog Flexpen] 20 units SUBCUT DINNER 09/12/16 Insulin Aspart [Novolog Flexpen] 20 units SUBCUT LUNCH 09/12/16 Levothyroxine [Synthroid] 100 mcg PO DAILY 09/12/16 Calcium Carbonate/Vitamin D3 [Calcium 500+D Tablet Chew] 600 mg PO BID 09/13/17 Cholecalciferol (Vitamin D3) [Vitamin D3] 1,000 unit PO BID 09/13/17 Fexofenadine HCl 180 mg PO DAILY 09/13/17 carbamazepine 200 mg tablet 100 mg PO DAILY tab 12/02/17 ferrous sulfate 325 mg (65 mg iron) tablet 325 mg PO DAILY tab 12/02/17 insulin detemir (U-100) 100 unit/mL (3 mL) subcutaneous pen 30 unit SC QHS ml 12/02/17 ondansetron HCl 4 mg tablet 4 mg PO .COMPLEX PRN tab 12/02/17 Aspirin E.C. [Ecotrin] 81 mg PO DAILY@0800 02/02/18 Atorvastatin Calcium [Lipitor] 80 mg PO QHS 02/02/18 Docusate Sodium [Colace] 100 mg PO DAILY 02/02/18 Isosorbide Mononitrate [Imdur] 60 mg PO QHS 02/02/18 Carbamazepine [Tegretol] 200 mg PO QHS 03/17/18 Diazepam [Valium] 5 mg PO PRN PRN 03/17/18 Hydrocodone Bitart/Apap 5-325 [[place] 5MG-325MG] 1 tablet PO Q6H PRN PRN 3 Days #8 tablet 03/24/18 The following prescriptions were given: Hydrocodone Bitart/Apap 5-325 [[place] 5MG-325MG] 1 tablet PO Q6H PRN PRN 3 Days #8 tablet PRN Reason: Pain Orders to be completed after discharge: Basic Metabolic Profile (BMP) Time Frame: 03/17/18, Location: Laboratory CBC-Complete Blood Cnt No Diff Time Frame: 03/17/18, Location: Laboratory Thyroid Stim Hormone (TSH) Time Frame: 03/17/18, Location: Laboratory Primary Care Physician: Twan Coy MD [Primary Care Provider] - Test Results: Test results from this visit will be discussed in further detail at your follow- up appointment, if applicable. Please Follow Up With: Shahbaz Young MD - [phone] When: Call to make an appointment to be seen in about 10 days.
--- NOTE | 2018-03-24 10:59 | OP.PCM_ITS ---
Problem List (1) Carotid stenosis, left Status: Chronic Report of Operation Date of Procedure: 03/24/18 Pre-Operative Diagnosis: Symptomatic critical stenosis left extracranial internal carotid Post-Operative Diagnosis: Same Surgery/Procedure Performed:: Right brachial arterial line placement. Left carotid endarterectomy with bovine patch angioplasty Description of Surgical Findings:: At the bedside timeout and informed consent was obtained. The patient has had a previous left radial artery harvesting. She has had a previous remote attempt at a right radial arterial line which was not successful. Thus the right antecubital space was sterilely prepped and draped. Ultrasound was used to identify the right brachial artery. 1% lidocaine was instilled under ultrasound guidance. A 20-gauge aero kit Angiocath was advanced into the right brachial artery under ultrasound guidance. With Salinger wire technique the catheter was nicely advanced. It was secured to skin with 3-0 silk and connected to pressure tubing. Good waveform was obtained. OpSite dressing and Carlos wrap applied. An arm board and Kerlix wrap applied. She tolerated the procedure well no apparent complication blood loss was minimal. She was subsequently taken to the operating room for definitive left carotid endarterectomy. 72-year-old female was taken to the operating room placed upon the table un derwent general endotracheal intubation anesthesia. Clindamycin 900 g given intravenous preoperatively. The left neck was sterilely prepped and draped. The patient was noted to be markedly hypertensive. An extended period of time was required to gently and introduce a anesthesia in order to get the hypertension control. An oblique incision was made around the anterior border the sternocleidomastoid sharp dissection carried down through the substance tissue. The sternocleidomastoid was reflected laterally. The facial vein was secured with 3-0 Vicryl ligatures. Sharp dissection carried down upon the common carotid carotid bulb. It is of note that the vessel was externally calcified consistent with dense disease. Tediously dissection performed cephalad the hypoglossal nerve had to be carefully and tediously mobilized. Dissection performed significant Gabo proximally along the internal carotid as the disease extended for approximately 4 cm. I was able to get circumferential control of the internal carotid placed a Dacron tape. Circumferential control of the common carotid placed a Moreau tie of Dacron tape and circumferential control of the external carotid with a vessel loop. The patient then received 8000 units of heparin intravenously. After adequate Strickling time Moody clamp was placed on the internal carotid and peripheral vascular clamps on the common carotid and external carotid. 11 blade was used to make an arteriotomy which was extended with Moreau scissors. I initially attempted to place a #10 USCI style shunt however it became very apparent that exposure at the very cephalad internal carotid was limited that the hypoglossal nerve had to be carefully retracted and that I was not going to get a Deya tourniquet to help secure the shunt so I remove the shunt there appeared to be very good backflow. I performed an endarterectomy of the layer of the external elastic lamina. The pocket was sharply transected proximally there was a tongue of extensive posterior calcific plaque that extended into the internal carotid not had to be carefully feathered. A inversion endarterectomy was performed of the external carotid. The vessel was copiously irrigated and further debris was carefully removed. A tacking suture was placed at the cephalad plaque with a 7-0 Prolene suture. [place] that I had good clearance of all the debris. A 0.8 x 8 cm piece of bovine pericardium patch was shaped to form and a patch angioplasty was created with a running 6-0 Prolene. Prior to completion the vessel was copiously irrigated . There was good antegrade flow from the common carotid and there was good retrograde flow from the external and internal carotids. The patch angioplasty was completed. Clamps were initially removed from the external carotid, carotid finally the internal carotid. There were several areas of suture line bleeding. I did have to place several interrupted 7-0 Prolene sutures in order to secure that. The most difficult place was actually at the internal carotid where a had parachuted the patch. That required a couple figure 8 sutures of 7-0 Prolene to help secure. I was able then to obtain complete hemostasis. The patient at this point received 30 mg of protamine. Blood pressure now became variable.It seems that campus administrative assistant gave pressors and the patient on one occasion was noted to be very hypertensive. I asked that the anesthesiologist re enter the room immediately for assistance. I elected to place FloSeal after an extensive period of time was pursued holding pressure and assuring hemostasis. There was good pulsatile flow. The wound was then closed in layers with a platysmal layer of running 3-0 Vicryl in a sub- dermal subcuticular layer running 5-0 Vicryl. The marlyn-incisional area was anes thetized with 10 cc of 0.5% Marcaine. Steri-Strips Telfa and tape dressing was applied. Sponge and instrument and needle counts were reported the surgeon be correct. Specimens include the plaque. Drains none. Blood loss 350 cc. She awoke neurologically grossly intact. She was taken to the recovery area in satisfactory condition. Shahbaz Young M.D., F.A.C.S. Type of Anesthesia:: General Anesthesiologist: Manuel Chacon
[2018-03-24] MEDS: Heparin Injection (Vial) 5,000 UNIT/ML VIAL 5000 UNIT (13:00)
[2018-03-24] MEDS: Bupivacaine Mpf 0.5% 30 ML VIAL (13:38)
--- NOTE | 2018-03-24 15:13 | PCM.PROGNOTE ---
Subjective: Patient seen and examined in PACU. S/P left carotid endarterectomy and right brachial arterial line placement. Patient currently asymptomatic. Noted to have elevated blood pressure during surgery. States her blood pressure is controlled at home, typically less than 120 systolically. Denies chest pain, headache, shortness of breath. - Physical Exam General: Alert, Oriented x3, Cooperative HEENT: Atraumatic, PERRLA, EOMI, Normocephalic Oral: Dry Mucosa Neck: Supple, No JVD, Negative Carotid Bruits Lungs: Clear to auscultation, Diminished Cardiovascular: Regular rate, Regular Rhythm, Normal S1, Normal S2, No murmurs Abdomen: Bowel Sounds Present, Soft, Non Tender, Non-Distended, Obese Extremities: No clubbing, No cyanosis, No edema, Capillary Refill Less than 3 Seconds Skin: No rashes, No breakdown, - - Left neck postop dressing clean dry and intact. Musculoskeletal: No Tenderness to Palpation of Joints or Extremities Neurological: Cranial nerves II-XII grossly intact, Neuro grossly intact Psych/Mental Status: Normal Affect, Appropriate Vital Signs Temp Pulse Resp BP Pulse Ox 96.9 F L 78 15 130/83 H 100 03/24/18 14:02 03/24/18 14:02 03/24/18 14:02 03/24/18 14:02 03/24/18 14:02 Oxygen Flow Rate (L/min) 6 Oxygen Delivery Method Non-Rebreather Weight: 175 lb 0.752 oz Body Mass Index (BMI) 34.2 Finger Stick Blood Glucose 97 POC Glucose 03/24/18 09:22 POC Glucose 206 H Medical Necessity - Tobacco Use Smoking Status: Never smoker Tobacco Use: Non-smoker Assessment/Plan All Active Problems (Last Reviewed 03/16/18 @ 09:49 by Isabela Burger) TIA (transient ischemic attack) (Acute) 1. Hypertensive Urgency- SBP 170-200 during surgery. Improved following IV Cardizem and IV nitro drip. Placed on Valium a few days ago by PCP due to suspected anxiety as cause of increased blood pressure. Blood pressure typically well controlled. Continue home isosorbide. PRN hydralazine for systolic blood pressure greater than 160. We will add additional oral agent if blood pressure remains above goal. 2. Carotid artery disease status post left carotid endarterectomy 03/24/[address] Young. History of right carotid endarterectomy approximately 10 years ago. Management per surgery. 3. CAD s/p PCI-Follows with Dr. Paez. 4. Type 2 diabetes [id number] ACHS with sliding scale insulin and scheduled Humalog. Continue Lantus regimen. 5. Hypothyroidism-continue Synthroid regimen. 6. Pulmonary hypertension 7. Chronic kidney disease stage III-stable. 8. History of trigeminal neuralgia 9. History of TIA DVT prophylaxis-SCDs This patient was seen by VALERIE Argueta under the supervision of Dr. Garduno.
--- NOTE | 2018-03-24 15:17 | PN_ITS ---
Subjective: Patient seen and examined in PACU. S/P left carotid endarterectomy and right brachial arterial line placement. Patient currently asymptomatic. Noted to have elevated blood pressure during surgery. States her blood pressure is controlled at home, typically less than 120 systolically. Denies chest pain, headache, shortness of breath. - Physical Exam General: Alert, Oriented x3, Cooperative HEENT: Atraumatic, PERRLA, EOMI, Normocephalic Oral: Dry Mucosa Neck: Supple, No JVD, Negative Carotid Bruits Lungs: Clear to auscultation, Diminished Cardiovascular: Regular rate, Regular Rhythm, Normal S1, Normal S2, No murmurs Abdomen: Bowel Sounds Present, Soft, Non Tender, Non-Distended, Obese Extremities: No clubbing, No cyanosis, No edema, Capillary Refill Less than 3 Seconds Skin: No rashes, No breakdown, - - Left neck postop dressing clean dry and intact. Musculoskeletal: No Tenderness to Palpation of Joints or Extremities Neurological: Cranial nerves II-XII grossly intact, Neuro grossly intact Psych/Mental Status: Normal Affect, Appropriate Vital Signs Temp Pulse Resp BP Pulse Ox 96.9 F L 78 15 130/83 H 100 03/24/18 14:02 03/24/18 14:02 03/24/18 14:02 03/24/18 14:02 03/24/18 14:02 Oxygen Flow Rate (L/min) 6 Oxygen Delivery Method Non-Rebreather Weight: 175 lb 0.752 oz Body Mass Index (BMI) 34.2 Finger Stick Blood Glucose 97 POC Glucose 03/24/18 09:22 POC Glucose 206 H Medical Necessity - Tobacco Use Smoking Status: Never smoker Tobacco Use: Non-smoker Assessment/Plan All Active Problems (Last Reviewed 03/16/18 @ 09:49 by Isabela Burger) TIA (transient ischemic attack) (Acute) 1. Hypertensive Urgency- SBP 170-200 during surgery. Improved following IV Cardizem and IV nitro drip. Placed on Valium a few days ago by PCP due to suspected anxiety as cause of increased blood pressure. Blood pressure typically well controlled. Continue home isosorbide. PRN hydralazine for systolic blood pressure greater than 160. We will add additional oral agent if blood pressure remains above goal. 2. Carotid artery disease status post left carotid endarterectomy 03/24/[address] Young. History of right carotid endarterectomy approximately 10 years ago. Management per surgery. 3. CAD s/p PCI-Follows with Dr. Paez. 4. Type 2 diabetes [id number] ACHS with sliding scale insulin and scheduled Humalog. Continue Lantus regimen. 5. Hypothyroidism-continue Synthroid regimen. 6. Pulmonary hypertension 7. Chronic kidney disease stage III-stable. 8. History of trigeminal neuralgia 9. History of TIA DVT prophylaxis-SCDs This patient was seen by VAELRIE Argueta under the supervision of Dr. Garduno.
[2018-03-24 15:46] LABS: Bedside Glucose 183 mg/dL (70-110)
[2018-03-24 18:21] LABS: Bedside Glucose 192 mg/dL (70-110)
[2018-03-24] MEDS: Insulin Lispro 100 UNIT/ML INSULN.PEN 20 UNIT SC (18:30)
[2018-03-24] MEDS: Insulin Lispro 100 UNIT/ML INSULN.PEN SC (18:31)
[2018-03-24 21:25] LABS: Bedside Glucose 131 mg/dL (70-110)
--- NOTE | 2018-03-24 21:53 | NURSING ---
PT WENT TO GO TO THE BATHROOM WITH SYLVAIN SLAUGHTER. PT C/O FEELING WEAK. PT LOWER TO THE GROUND. PT THEN LINOLEUM LAYER AND PLACED BACK IN BED. VITALS 98.2 88 127/40 RA 99.
--- NOTE | 2018-03-24 22:13 | EKG12_ITS ---
Test Reason : POSSIBLE STROKE Blood Pressure : / mmHG Vent. Rate : 086 BPM Atrial Rate : 090 BPM P-R Int : 160 ms QRS Dur : 098 ms QT Int : 366 ms P-R-T Axes : 000 -47 238 degrees QTc Int : 437 ms Normal sinus rhythm Left anterior fascicular block Left ventricular hypertrophy with repolarization abnormality Abnormal ECG When compared with ECG of 02-FEB-2018 08:44, Nonspecific T wave abnormality now evident in Inferior leads Confirmed by ALISA RUIZ, SHAKIRA ([id number]), news video editor MAYURI CADE ([id number]) on 03/29/2018 9:00:17 AM Referred By: Shahbaz Young Confirmed By:SHAKIRA CUELLAR MD
--- NOTE | 2018-03-24 22:14 | CT_ITS ---
We are attempting to reach Shahbaz Young to discuss findings. An addendum with communication details will be sent when the communication is complete. STUDY: CT BRAIN WITHOUT CONTRAST REASON FOR EXAM: Female, 72 years old. Stroke protocol. RADIATION DOSAGE (If Supplied By Facility): CTDIvol = ( 44.99 ) mGy, DLP = ( 762.36 ) mGycm TECHNIQUE: Transaxial CT imaging of the brain was performed without administration of intravenous contrast material. Individualized dose optimization techniques were used for this CT. COMPARISON: 12/15/2017. FINDINGS: There is no definite acute abnormality. There is diffuse mild symmetric atrophy. There is atrophy of the posterior fossa structures. There is diffuse small vessel ischemic disease of the white matter. There are stable bilateral lacunar infarcts. Dystrophic calcification is seen of the basal ganglia. There is no definite acute infarct. There is no bleed. There is no gross mass, mass effect, or midline shift. There is no acute abnormality of the skull. No fractures. Grossly normal orbits. Grossly normal sinuses. CT/Brain/Head without Contrast IMPRESSION: Chronic age related changes and atrophy. No acute abnormality. Electronically Signed: Peter Rivas MD at 22:30 EST , Service support ,
[2018-03-24 22:16] LABS: Bedside Glucose 134 mg/dL (70-110)
--- NOTE | 2018-03-24 22:42 | PCM.PN.BLA ---
Progress Note At around 10 PM, stroke alert team called to the floor. I went to see the patient in the room. According to nursing staff, patient stood up to walk to the bathroom, was very weak, was lowered down to the ground. Patient seen and examined. She was confused and disoriented, talking nonsense. She was able to move upper and lower extremities. No facial droop or mild deviation. Her vital signs were stable, blood pressure was stable. Stat CT scan brain performed and showed no acute findings. She had 2D echocardiogram on December, that revealed ejection fraction of 60% and moderate pulmonary hypertension. Assessment and plan: At this time, I think patient is delirious. No obvious clinical signs of acute stroke, no focal deficit. Plan to monitor, may consider MRI brain if her symptoms persist.
--- NOTE | 2018-03-24 22:48 | CT_ITS ---
STUDY: CTA NECK WITH CONTRAST REASON FOR EXAM: Female, 72 years old. Postop left-sided carotid endarterectomy today. Patient went to bathroom and became weak and confused. RADIATION DOSAGE (If Supplied By Facility): CTDIvol = ( 17.01 ) mGy, DLP = ( 638.83 ) mGycm TECHNIQUE: CT angiography with multi-detector data acquisition was performed from the aortic arch to the skull base following intravenous administration of 100 ml of Isovue 370 contrast. MIP images were reconstructed from the axial data set. Post-processing of the angiographic images was performed, with multiplanar reformation and 3D reconstruction. Individualized dose optimization techniques were used for this CT. COMPARISON: CT of the head dated March 24, 2017 and MRI of the brain dated December 25, 2017. FINDINGS: AORTIC ARCH: There is atherosclerotic calcific plaque formation of the aortic arch and great vessels arising from the aortic arch, without a hemodynamically significant stenosis. There is a normal origin of the brachiocephalic, left common carotid, and left subclavian arteries. Normal origins of the brachiocephalic, left common carotid, and left subclavian arteries. RIGHT CAROTID ARTERIES: Normal right common carotid artery (CCA). There is a regular contour to the right ventricle is slightly related to previous carotid endarterectomy. There is no significant narrowing. Normal origin of the right internal carotid (ICA) artery without a hemodynamically significant stenosis. Normal visualized cervical portion of the right internal carotid artery. Normal origin of the right external carotid artery (ECA). LEFT CAROTID ARTERIES: Normal left common carotid artery (CCA). There is irregular contour to left carotid bulb related to recent carotid endarterectomy. Surgical clips are visible in left neck. There is no significant narrowing. Normal origin of the left internal carotid (ICA) artery without a hemodynamically significant stenosis. Normal visualized cervical portion of the left internal carotid artery. Normal origin of the left external carotid artery (ECA). VERTEBRAL ARTERIES: Normal bilateral vertebral arteries. NECK ANATOMY: Normal bilateral parotid glands. Normal bilateral resident care associate spaces. Normal bilateral parapharyngeal spaces. Normal bilateral carotid spaces. Normal bilateral sublingual and submandibular glands and spaces. Normal visualized nasopharynx. Normal retropharyngeal space. Normal perivertebral space. Normal visualized bilateral faucial tonsils. The visualized tongue, tongue base and oropharynx are normal. The visualized cervical lymph nodes (levels I-) are within normal size limits, and maintain normal morphology. There is no demonstrated solid or cystic mass lesion. There is no abnormal contrast enhancement. Normal epiglottis, bilateral vallecula and hypopharynx. The pre-epiglottic and paraglottic adipose spaces are normal. Normal visualized bilateral piriform sinuses, aryepiglottic folds, vocal cords, and arytenoid-cricoid articulations. Normal subglottic trachea. Thyroid appears atrophic. Incidental note is made of an azygos lobe. Normal visualized paranasal sinuses. There is multilevel degenerative changes of the cervical spine. There appears to be an extra-axial process involving the right basilar cistern and moderate to medial cranial fossa. This may represent a meningioma. Estimated size of this mass measures approximately 2.2 x 1.4 x 2.4 cm in size. This lesion enhances mildly after intravenous administration of contrast. CT/CTA Neck W/WO Contrast IMPRESSION: 1. Postoperative changes at bilateral carotid bulbs without evidence for hemodynamically significant stenosis. 2. No CT evidence for postoperative hemorrhage. 3. 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 Electronically Signed: Yadira Blount MD at 0:24 EST , Service support ,
--- NOTE | 2018-03-24 22:55 | MRI_ITS ---
STUDY: MRI BRAIN WITHOUT CONTRAST REASON FOR EXAM: Female, 72 years old. Confusion after carotid endarterectomy. TECHNIQUE: Standardized multiplanar fat and water weighted pulse sequences were obtained. COMPARISON: CT of the head dated March 24, 2018 and CTA of the neck dated March 24, 2018 FINDINGS: Normal size of the ventricles and extra-axial spaces for the patient's age. There are multiple white matter hyperintensities, distributed throughout the deep white matter tracts of the cerebral hemispheres, consistent with moderate chronic white matter ischemic changes. There is confluent periventricular hyperintensity cloaking the lateral ventricles, consistent with periventricular leukoaraiosis. Restricted diffusion is visible within the posterior right occipital lobe consistent with acute infarct. There are also patchy areas of restricted diffusion within the basal ganglia that may represent additional acute infarcts. There are prominent perivascular spaces (PVS) involving the basal ganglia. Normal thalami. There is no extra-axial fluid accumulation. Normal flow voids within the major intracranial circulation suggesting patency by spin echo criteria. Normal sella turcica, pituitary gland, infundibular stalk, optic chiasm and hypothalamus. Normal tectal plate and pineal gland. Normal midbrain, nate and medulla. Normal cerebellum. Normal basal cisterns. Normal bilateral temporal bones. Normal bilateral internal auditory canals. There are bilateral ocular lens implants with otherwise normal intraorbital contents. There is abnormal signal within the posterior right-sided ethmoid sinuses. There is mild mucoperiosteal thickening present in bilateral sphenoid sinuses and bilateral maxillary sinuses. Normal calvarium and skull base. Normal visualized soft tissue structures. There are degenerative changes of the anterior atlantoaxial articulation. MRI/Brain without Contrast IMPRESSION: 1. Involutional changes of the brain, as described above. 2. Acute infarct involving the posterior right occipital lobe within the posterior right cerebral artery territory. 3. Questionable acute infarcts within the basal ganglia. Electronically Signed: Yadira Blount MD at 8:46 EST , Service support ,
[2018-03-25] VITALS (15 sets, daily range): BP systolic 111–152; BP diastolic 46–77; PULSE 81–96; RESP 14–22; TEMP 36.2–37.3; O2SAT 93–100
[2018-03-25] MEDS: Lactated Ringers 1,000 ML 30 ML IV (00:58)
[2018-03-25] MEDS: Levothyroxine 100 MCG Tablet PO (05:00)
--- NOTE | 2018-03-25 05:38 | NURSING ---
pt took her neck dressing and gown. pt yelling for her . Pt restless at this time. rick ford sitting with pt. will monitor
--- NOTE | 2018-03-25 05:50 | PCM.PN.SRG ---
Subjective: Appreciate Dr Mckeon's assistance Pt was gotten out of bed last night, became weak and assisted to ground. Neuro check suggested intact 4 extremities but some expressive aphasia and confusion Pt remains confused thinking she is at home and trying to get out of bed to go downstairs to sleep Preop she has had multiple episodes of falling/syncope with even fracturing an arm Source was felt possibly to be secondary to her high grade left carotid stenosis and severe dz was found at operation yesterday Head CT was negative for acute change Neck CTA showed post op changes bilateral carotids. Pt has had a remote right CEA. I have reviewed this study and I do not find any focal problems on the left that would explain the pts condition - Physical Exam General: No apparent distress, Disoriented Neck: - - supple left neck incision, clean and dry Lungs: Clear to auscultation Neurological: - - extremities equal strength Facial muscles intact Voice clear Tongue midline Vital Signs Temp Pulse Resp BP Pulse Ox 98.1 F 81 19 H 140/46 H 98 03/25/18 04:56 03/25/18 04:56 03/25/18 04:56 03/25/18 04:56 03/25/18 04:56 Oxygen Flow Rate (L/min) 2 Oxygen Delivery Method Room Air Weight: 175 lb 0.752 oz Body Mass Index (BMI) 34.2 Finger Stick Blood Glucose 134 Intake and Output for Last 24 Hours 03/23/18 03/24/18 03/25/18 23:59 23:59 23:59 Intake Total 1700 / 1700 393 / 393 Balance 1700 / 1700 393 / 393 POC Glucose 03/24/18 03/24/18 03/24/18 22:01 21:17 18:08 POC Glucose 134 H 131 H 192 H 03/24/18 03/24/18 15:41 09:22 POC Glucose 183 H 206 H Medical Necessity - Tobacco Use Smoking Status: Never smoker Tobacco Use: Non-smoker Assessment/Plan All Active Problems (Last Reviewed 03/16/18 @ 09:49 by Isabela Burger) TIA (transient ischemic attack) (Acute) Pt is clearly confused this a.m. but speech is clear She has had multiple syncopal spells preop--difficult to know if this is the same or post op related MRI brain is scheduled for today but the patient's confusion may preclude this BP and Glu both appear appropriate and not part of this issue I appreciate medical assistance
[2018-03-25 06:56] LABS: Bedside Glucose 198 mg/dL (70-110)
[2018-03-25] MEDS: Haloperidol Lactate 5 MG/ML Vial 2 MG IV (08:50)
--- NOTE | 2018-03-25 10:31 | NURSING ---
Per RN to RN report, pt was confused and restless, attempting to get out of bed unassisted. pt had fall last night and was assisted to the floor. pt given x1 haldol per report. This RN took over as primary RN and has been sitting with pt since 09:40. Pt resting in bed with eyes closed, intermittent periods of restlessness noted. No physiological needs addressed at this time. Sabine BRANDON
[2018-03-25] MEDS: Morphine 2 MG/ML Syringe IV ×2 (13:25→15:40)
--- NOTE | 2018-03-25 13:39 | CON.PCM_ITS ---
Problem List (1) Stroke Status: Acute (2) Hyperperfusion syndrome, status post carotid endarterectomy Status: Suspected (3) Carotid stenosis, left Status: Chronic Reason for Consult Date of Consultation: 03/25/18 Reason for Consultation: stroke, confusion History of Present Illness: The patient is a 72 year old CF with PMH HTN, HLD, DM, , H/O Right CEA in the past, s/p Left CEA ( yesterday 03/24/18)TN on Carbamazepine, CAD s/p stents, CKD, hypothyroidism admitted with post procedure confusion and disorientation. Per documentation her post procedure course was complicated by hypertension, then later yesterday night (03/24/18) she was confused and disoriented, stroke alert was called, but per documentation there was no focal deficit or facial droop at that time. Patient at present complains of mild generalized headache. Is on ASA/Plavix at baseline per , lives with , uses walker to ambulate, had intermittent falls in the past which has improved per , and does not drive. CT angiogram neck done 03/24/2018 reported to show postoperative changes in bilateral carotid bulbs without evidence of hemodynamically significant stenosis. No postoperative hemorrhage. 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 MRI brain without contrast on 03/24/2018 reported to show acute infarct in the posterior medial right occipital lobe within the right [employer] territory and questionable acute infarcts within the basal ganglia (as reported by radiologist Dr. Yadira Blount). Per nurse taking care of the patient this morning patient was very agitated and trying to climb up out of the bed and was given Haldol. Per Dr. Young's note she had an attempted left carotid endarterectomy procedure on 02/07/2018 but it was aborted then due to malignant hypertension. No witnessed seizures per documentation. Past Medical History Past Medical History (Chronic Problems): Chronic Problems (Last Reviewed 03/16/18 @ 09:49 by Isabela Burger) Carotid stenosis, left (Chronic) Nonrheumatic aortic (valve) stenosis (Chronic) Pulmonary hypertension (Chronic) Nonrheumatic tricuspid (valve) insufficiency (Chronic) Nonrheumatic mitral (valve) insufficiency (Chronic) Nonrheumatic mitral (valve) prolapse (Chronic) CKD (chronic kidney disease) stage 3, GFR 30-59 ml/min (Chronic) Type 2 diabetes mellitus (Chronic) Essential hypertension (Chronic) Carotid artery stenosis (Chronic) Left Presence of stent in coronary artery (Chronic ~1999) PTCA/Stent to the LAD 1999 Atherosclerotic heart disease of [place] coronary artery without angina pectoris (Chronic) Hyperlipemia (Chronic) Hypothyroidism (Chronic) Medical History: Medical History (Last Reviewed 03/16/18 @ 09:49 by Isabela Burger) Nonrheumatic aortic (valve) stenosis (Chronic) I35.0 Pulmonary hypertension (Chronic) I27.20 Nonrheumatic tricuspid (valve) insufficiency (Chronic) I36.1 Nonrheumatic mitral (valve) insufficiency (Chronic) I34.0 Nonrheumatic mitral (valve) prolapse (Chronic) I34.1 CKD (chronic kidney disease) stage 3, GFR 30-59 ml/min (Chronic) N18.3 Type 2 diabetes mellitus (Chronic) E11.9 Essential hypertension (Chronic) I10 Carotid artery stenosis (Chronic) I65.29 Left Presence of stent in coronary artery (Chronic) Onset Date: ~1999 Z95.5 PTCA/Stent to the LAD 1999 Atherosclerotic heart disease of [place] coronary artery without angina pectoris (Chronic) I25.10 Hyperlipemia (Chronic) E78.5 Hypothyroidism (Chronic) E03.9 GERD (gastroesophageal reflux disease) K21.9 History of uterine cancer Z85.42 Trigeminal neuralgia G50.0 Meningioma D32.9 Allergies adhesive tape Allergy (Verified 03/17/18 13:20) Rash Penicillins Allergy (Verified 03/17/18 13:20) Rash Home Medications: Ambulatory Orders Medication Instructions Recorded Clopidogrel Bisulfate [Plavix] 75 mg PO DAILY 09/12/16 Insulin Aspart [Novolog Flexpen] 10 units SUBCUT BREAKFAST 09/12/16 Insulin Aspart [Novolog Flexpen] 20 units SUBCUT DINNER 09/12/16 Insulin Aspart [Novolog Flexpen] 20 units SUBCUT LUNCH 09/12/16 Levothyroxine [Synthroid] 100 mcg PO DAILY 09/12/16 Calcium Carbonate/Vitamin D3 600 mg PO BID 09/13/17 [Calcium 500+D Tablet Chew] Cholecalciferol (Vitamin D3) 1,000 unit PO BID 09/13/17 [Vitamin D3] Fexofenadine HCl 180 mg PO DAILY 09/13/17 carbamazepine 200 mg tablet 100 mg PO DAILY tab 12/02/17 ferrous sulfate 325 mg (65 mg 325 mg PO DAILY tab 12/02/17 iron) tablet insulin detemir (U-100) 100 30 unit SC QHS ml 12/02/17 unit/mL (3 mL) subcutaneous pen ondansetron HCl 4 mg tablet 4 mg PO .COMPLEX PRN tab 12/02/17 Aspirin E.C. [Ecotrin] 81 mg PO DAILY@0800 02/02/18 Atorvastatin Calcium [Lipitor] 80 mg PO QHS 02/02/18 Docusate Sodium [Colace] 100 mg PO DAILY 02/02/18 Isosorbide Mononitrate [Imdur] 60 mg PO QHS 02/02/18 Carbamazepine [Tegretol] 200 mg PO QHS 03/17/18 Diazepam [Valium] 5 mg PO PRN PRN 03/17/18 Hydrocodone Bitart/Apap 5-325 1 tablet PO Q6H PRN PRN 3 Days #8 03/24/18 [[place] 5MG-325MG] tablet Surgical History: Surgical History (Last Reviewed 03/16/18 @ 09:49 by Isabela Burger) Presence of coronary angioplasty implant and graft Onset Date: ~1999 Z95.5 PTCA/Stent to the LAD 1999 History of cataract surgery Z98.49 History of hysterectomy Z90.710 History of right-sided carotid endarterectomy Z98.890 S/P wrist surgery Z98.890 ORIF Lives: Spouse/ Significant Other Smoking Status: Never smoker Tobacco Use: Non-smoker Alcohol: None Drugs: None Review of Systems Constitutional: Reports: - - ROS could not be obtained this patient is confused at present Patient Problems: Active and Suspected Problems (Last Reviewed 03/16/18 @ 09:49 by Isabela Burger) Stroke (Acute) Hyperperfusion syndrome, status post carotid endarterectomy (Suspected) - Physical Exam General: - - drowsy, arousable, confused, follows VC HEENT: Normocephalic Neck: Supple Lungs: Normal air movement Cardiovascular: Normal S1, Normal S2 Abdomen: Bowel Sounds Present Extremities: No cyanosis Neurological: - - confused, drowsy, CN 2-12 grossly intact, no facial droop appreciated, moves all 4 extremities, left worse than right, plantars B/L Extensor, denies any sensory loss, no NR, limited Neurology examination, Reflexes + B/L B/S/T/K/A, gait deferred, no cerebellar signs on the right side. Vital Signs Temp Pulse Resp BP Pulse Ox 98.7 F 93 22 H 152/76 H 95 03/25/18 13:00 03/25/18 13:00 03/25/18 13:00 03/25/18 13:00 03/25/18 13:00 Oxygen Flow Rate (L/min) 2 Oxygen Delivery Method Room Air Weight: 79.4 kg Body Mass Index (BMI) 34.2 Finger Stick Blood Glucose 134 Intake and Output for Last 24 Hours 03/23/18 03/24/18 03/25/18 23:59 23:59 23:59 Intake Total 1700 / 1700 393 / 393 Output Total 300 / 300 Balance 1700 / 1700 93 / 93 POC Glucose 03/25/18 03/24/18 03/24/18 06:41 22:01 21:17 POC Glucose 198 H 134 H 131 H 03/24/18 03/24/18 18:08 15:41 POC Glucose 192 H 183 H Assessment/Plan All Active Problems (Last Reviewed 03/16/18 @ 09:49 by Isabela Burger) Stroke (Acute) TIA (transient ischemic attack) (Acute) The patient is a 72 year old CF with PMH HTN, HLD, DM, , H/O Right CEA in the past, s/p Left CEA ( yesterday 03/24/18)TN on Carbamazepine, CAD s/p stents, CKD, hypothyroidism admitted with post procedure confusion and disorientation. Per documentation her post procedure course was complicated by hypertension, then later yesterday night (03/24/18) she was confused and disoriented, stroke alert was called, but per documentation there was no focal deficit or facial droop at that time. Patient at present complains of mild generalized headache. Is on ASA/Plavix at baseline per , lives with , uses walker to ambulate, had intermittent falls in the past which has improved per , and does not drive. CT angiogram neck done 03/24/2018 reported to show postoperative changes in bilateral carotid bulbs without evidence of hemodynamically significant stenosis. No postoperative hemorrhage. 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 MRI brain without contrast on 03/24/2018 reported to show acute infarct in the posterior medial right occipital lobe within the right [employer] territory and questionable acute infarcts within the basal ganglia (as reported by radiologist Dr. Yadira Blount). Per nurse taking care of the patient this morning patient was very agitated and trying to climb up out of the bed and was given Haldol. Per Dr. Young's note she had an attempted left carotid endarterectomy procedure on 02/07/2018 but it was aborted then due to malignant hypertension. No witnessed seizures per documentation. Impression Acute right occipital infarct Encephalopathy Monitor for cerebral hyperperfusion syndrome?uncontrolled hypertension Plan ?On aspirin 81 mg daily and Lipitor 80 mg p.o. nightly. Plavix 75 mg p.o. once daily if no contraindication from surgical standpoint. Dual antiplatelets for 3 months and then switch to single antiplatelet. Bleeding risk discussed. ?MRI brain reportedly showed acute right occipital infarct and CT angiogram neck reported to show no hemodynamically significant stenosis and postoperative changes in bilateral carotid bulbs. ?Check MR angiogram head ?Check EEG when able ?Patient needs close monitoring with frequent neurology checks and ideally should be monitored in NICU. Recommend transferring to tertiary care center for further NICU care. ?Better blood pressure control for prevention of cerebral hyperperfusion syndrome, defer to hospitalist team ?Check TTE, LDL, HbA1c, UA, ammonia, LFTs. ?Stroke risk factors discussed in stroke education provided. ?PT/OT/ST ?GI/DVT prophylaxis ?Case discussed with Dr. Young and Dr. Valiente ?Fall precautions ?Further medical management per hospitalist team ?Please call with questions if any ?Follow-up with neurology as outpatient ?Thank you for allowing us to emergency within patient's current management. Code Visit Inpatient E&M: 39122 Init Hosp L3
--- NOTE | 2018-03-25 14:49 | PCM.DC.SUM ---
Discharge Date and Diagnosis Date of Admission: 12/24/17 Date of Discharge: 03/25/18 - Primary Discharge Diagnosis Active and Suspected Problems (Last Reviewed 03/16/18 @ 09:49 by Isabela Burger) 1. Possible hyperperfusion syndrome status post left carotid endarterectomy 2. Acute right occipital infarct 3. Acute encephalopathy 4. Hypertensive urgency 5. CAD status post PCI 6. Type 2 diabetes mellitus 7. Hypothyroidism 8. Pulmonary hypertension 9. Chronic kidney disease stage III 10. History of trigeminal neuralgia 11. History of TIA 12. Prior history of right carotid endarterectomy - Secondary Discharge Diagnosis Chronic Problems (Last Reviewed 03/16/18 @ 09:49 by Isabela Burger) Carotid stenosis, left (Chronic) Nonrheumatic aortic (valve) stenosis (Chronic) Pulmonary hypertension (Chronic) Nonrheumatic tricuspid (valve) insufficiency (Chronic) Nonrheumatic mitral (valve) insufficiency (Chronic) Nonrheumatic mitral (valve) prolapse (Chronic) CKD (chronic kidney disease) stage 3, GFR 30-59 ml/min (Chronic) Type 2 diabetes mellitus (Chronic) Essential hypertension (Chronic) Carotid artery stenosis (Chronic) Left Presence of stent in coronary artery (Chronic ~1999) PTCA/Stent to the LAD 1999 Atherosclerotic heart disease of [place] coronary artery without angina pectoris (Chronic) Hyperlipemia (Chronic) Hypothyroidism (Chronic) Hospital Course and Treatment Imaging Results: Diagnostic Data Brain CT 03/24/18 22:14 IMPRESSION: Chronic age related changes and atrophy. No acute abnormality. Electronically Signed: Peter Rivas MD at 22:30 EST , Service support , ADDENDUM: 03/24/187 IMPRESSION: Chronic age related changes and atrophy. No acute abnormality. N.B. : The above information has been verbally conveyed by Peter Rivas MD to Bailey Dias RN, on 03/24/2018 22:30:41 (ET). Electronically Signed: Peter Rivas MD at 22:30 EST , Service support , Neck CTA 03/24/18 22:48 IMPRESSION: 1. Postoperative changes at bilateral carotid bulbs without evidence for hemodynamically significant stenosis. 2. No CT evidence for postoperative hemorrhage. 3. 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 Electronically Signed: Yadira Blount MD at 0:24 EST , Service support , Brain MRI 03/24/18 22:55 IMPRESSION: 1. Involutional changes of the brain, as described above. 2. Acute infarct involving the posterior right occipital lobe within the posterior right cerebral artery territory. 3. Questionable acute infarcts within the basal ganglia. Electronically Signed: Yadira Blount MD at 8:46 EST , Service support , Dr. Yo- Neurology Dr. Young- General/Vascular surgery Operations: None Procedures: - - Left carotid endarterectomy Summary of Care Provided: The patient is a 72 year old F admitted 03/24/2018 following left carotid endarterectomy. 1. Possible hyperperfusion syndrome status post left carotid endarterectomy- Carotid artery disease status post left carotid endarterectomy 03/24/[address] Young. History of right carotid endarterectomy approximately 10 years ago. Patient noted to have hypertensive urgency during surgery as well as immediately postoperatively. Transfer to tertiary [facility] center for further NICU monitoring. 2. Acute right occipital infarct-per MRI of brain. Neurology consulted. Patient to be transferred to tertiary [place], [facility] for further NICU care. On aspirin, statin. Neurology recommending adding Plavix 75 mg daily if no contraindication from surgical standpoint. MRA of head ordered, not completed prior to discharge. 3. Acute encephalopathy- suspected secondary to acute CVA. 4. Hypertensive urgency-improved. Will need continued close monitoring. 5. CAD status post PCI- follows with Dr. Paez. 6. Type 2 diabetes mellitus-continue previous insulin regimen. 7. Hypothyroidism-continue Synthroid regimen. 8. Pulmonary hypertension 9. Chronic kidney disease stage III-stable. 10. History of trigeminal neuralgia 11. History of TIA 12. Prior history of right carotid endarterectomy General: Alert, confused, restless HEENT: Atraumatic, PERRLA, EOMI, Normocephalic Oral: Dry Mucosa Neck: Supple, No JVD, Negative Carotid Bruits Lungs: Clear to auscultation, Diminished Cardiovascular: Regular rate, Regular Rhythm, Normal S1, Normal S2, No murmurs Abdomen: Bowel Sounds Present, Soft, Non Tender, Non-Distended, Obese Extremities: No clubbing, No cyanosis, No edema, Capillary Refill Less than 3 Seconds Skin: No rashes, No breakdown, Left neck postop dressing clean dry and intact. Musculoskeletal: No Tenderness to Palpation of Joints or Extremities Neurological: Cranial nerves II-XII grossly intact, Neuro grossly intact Psych/Mental Status: Restless Patient seen and examined prior to discharge. Physical assessment as noted above. Transfer to [facility] for further NICU care. This patient was seen by VALERIE Argueta under the supervision of Dr. Valiente. - Physical Exam Vital Signs Temp Pulse Resp BP Pulse Ox 99.0 F 95 18 145/67 H 100 03/25/18 14:00 03/25/18 14:00 03/25/18 14:00 03/25/18 14:00 03/25/18 14:00 Oxygen Flow Rate (L/min) 2 Oxygen Delivery Method Room Air Weight: 175 lb 0.752 oz Body Mass Index (BMI) 34.2 Finger Stick Blood Glucose 134 Intake and Output for Last 24 Hours 03/23/18 03/24/18 03/25/18 23:59 23:59 23:59 Intake Total 1700 / 1700 393 / 393 Output Total 300 / 300 Balance 1700 / 1700 93 / 93 POC Glucose 03/25/18 03/24/18 03/24/18 06:41 22:01 21:17 POC Glucose 198 H 134 H 131 H 03/24/18 03/24/18 18:08 15:41 POC Glucose 192 H 183 H Additional Dressing/Incision Instructions:: Leave steri-strips in place for 1 week. You may cover and protect the incision with dry gauze as needed for comfort Home Medications: Medications to take at Discharge Clopidogrel Bisulfate [Plavix] 75 mg PO DAILY 09/12/16 Insulin Aspart [Novolog Flexpen] 10 units SUBCUT BREAKFAST 09/12/16 Insulin Aspart [Novolog Flexpen] 20 units SUBCUT DINNER 09/12/16 Insulin Aspart [Novolog Flexpen] 20 units SUBCUT LUNCH 09/12/16 Levothyroxine [Synthroid] 100 mcg PO DAILY 09/12/16 Calcium Carbonate/Vitamin D3 [Calcium 500+D Tablet Chew] 600 mg PO BID 09/13/17 Cholecalciferol (Vitamin D3) [Vitamin D3] 1,000 unit PO BID 09/13/17 Fexofenadine HCl 180 mg PO DAILY 09/13/17 carbamazepine 200 mg tablet 100 mg PO DAILY tab 12/02/17 ferrous sulfate 325 mg (65 mg iron) tablet 325 mg PO DAILY tab 12/02/17 insulin detemir (U-100) 100 unit/mL (3 mL) subcutaneous pen 30 unit SC QHS ml 12/02/17 ondansetron HCl 4 mg tablet 4 mg PO .COMPLEX PRN tab 12/02/17 Aspirin E.C. [Ecotrin] 81 mg PO DAILY@0800 02/02/18 Atorvastatin Calcium [Lipitor] 80 mg PO QHS 02/02/18 Docusate Sodium [Colace] 100 mg PO DAILY 02/02/18 Isosorbide Mononitrate [Imdur] 60 mg PO QHS 02/02/18 Carbamazepine [Tegretol] 200 mg PO QHS 03/17/18 Diazepam [Valium] 5 mg PO PRN PRN 03/17/18 Hydrocodone Bitart/Apap 5-325 [[place] 5MG-325MG] 1 tablet PO Q6H PRN PRN 3 Days #8 tablet 03/24/18 Following Prescrptions Were Given to Patient: Hydrocodone Bitart/Apap 5-325 [[place] 5MG-325MG] 1 tablet PO Q6H PRN PRN 3 Days #8 tablet PRN Reason: Pain Other Amb Orders: Basic Metabolic Profile (BMP) Time Frame: 03/17/18, Location: Laboratory CBC-Complete Blood Cnt No Diff Time Frame: 03/17/18, Location: Laboratory Thyroid Stim Hormone (TSH) Time Frame: 03/17/18, Location: Laboratory Primary Care Physician: Twan Coy MD [Primary Care Provider] - Please Follow Up With: Shahbaz Young MD - [phone] When: Call to make an appointment to be seen in about 10 days. Disposition: Acute care Hospital Minutes spent on discharge:: 35 Patient Condition:: Fair Medical Necessity - Tobacco Use Smoking Status: Never smoker Tobacco Use: Non-smoker Meaningful Use Info Meaningful Use Diagnoses (Choose all that apply): Ischemic CVA - CVA Therapy Assessed for PT,OT and/or ST?: Yes - Ischemic Stroke Antithrombotic order at d/c?: Yes Dx of Atrial fib/flutter?: No Statins at discharge?: Yes Primary Dx Acute Ischemic CVA?: No IV tPA ordered during stay?: No Reason IV t-PA not ordered: Medical Contraindication
--- NOTE | 2018-03-25 14:54 | DS.PCM_ITS ---
Discharge Date and Diagnosis Date of Admission: 12/24/17 Date of Discharge: 03/25/18 - Primary Discharge Diagnosis Active and Suspected Problems (Last Reviewed 03/16/18 @ 09:49 by Isabela Burger) 1. Possible hyperperfusion syndrome status post left carotid endarterectomy 2. Acute right occipital infarct 3. Acute encephalopathy 4. Hypertensive urgency 5. CAD status post PCI 6. Type 2 diabetes mellitus 7. Hypothyroidism 8. Pulmonary hypertension 9. Chronic kidney disease stage III 10. History of trigeminal neuralgia 11. History of TIA 12. Prior history of right carotid endarterectomy - Secondary Discharge Diagnosis Chronic Problems (Last Reviewed 03/16/18 @ 09:49 by Isabela Burger) Carotid stenosis, left (Chronic) Nonrheumatic aortic (valve) stenosis (Chronic) Pulmonary hypertension (Chronic) Nonrheumatic tricuspid (valve) insufficiency (Chronic) Nonrheumatic mitral (valve) insufficiency (Chronic) Nonrheumatic mitral (valve) prolapse (Chronic) CKD (chronic kidney disease) stage 3, GFR 30-59 ml/min (Chronic) Type 2 diabetes mellitus (Chronic) Essential hypertension (Chronic) Carotid artery stenosis (Chronic) Left Presence of stent in coronary artery (Chronic ~1999) PTCA/Stent to the LAD 1999 Atherosclerotic heart disease of [place] coronary artery without angina pectoris (Chronic) Hyperlipemia (Chronic) Hypothyroidism (Chronic) Hospital Course and Treatment Imaging Results: Diagnostic Data Brain CT 03/24/18 22:14 IMPRESSION: Chronic age related changes and atrophy. No acute abnormality. Electronically Signed: Peter Rivas MD at 22:30 EST , Service support , ADDENDUM: 03/24/187 IMPRESSION: Chronic age related changes and atrophy. No acute abnormality. N.B. : The above information has been verbally conveyed by Peter Rivas MD to Bailey Dias RN, on 03/24/2018 22:30:41 (ET). Electronically Signed: Peter Rivas MD at 22:30 EST , Service support , Neck CTA 03/24/18 22:48 IMPRESSION: 1. Postoperative changes at bilateral carotid bulbs without evidence for hemodynamically significant stenosis. 2. No CT evidence for postoperative hemorrhage. 3. 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 Electronically Signed: Yadira Blount MD at 0:24 EST , Service support , Brain MRI 03/24/18 22:55 IMPRESSION: 1. Involutional changes of the brain, as described above. 2. Acute infarct involving the posterior right occipital lobe within the posterior right cerebral artery territory. 3. Questionable acute infarcts within the basal ganglia. Electronically Signed: Yadira Blount MD at 8:46 EST , Service support , Dr. Yo- Neurology Dr. Young- General/Vascular surgery Operations: None Procedures: - - Left carotid endarterectomy Summary of Care Provided: The patient is a 72 year old F admitted 03/24/2018 following left carotid endarterectomy. 1. Possible hyperperfusion syndrome status post left carotid endarterectomy- Carotid artery disease status post left carotid endarterectomy 03/24/[address] Young. History of right carotid endarterectomy approximately 10 years ago. Patient noted to have hypertensive urgency during surgery as well as immediately postoperatively. [facility]. 2. Acute right occipital infarct-per MRI of brain. Neurology consulted. Patient to be transferred to [facility] [place] for further NICU care. On aspirin, statin. Neurology recommending adding Plavix 75 mg daily if no contraindication from surgical standpoint. MRA of head ordered, not completed prior to discharge. 3. Acute encephalopathy- suspected secondary to acute CVA. 4. Hypertensive urgency-improved. Will need continued close monitoring. 5. CAD status post PCI- follows with Dr. Paez. 6. Type 2 diabetes mellitus-continue previous insulin regimen. 7. Hypothyroidism-continue Synthroid regimen. 8. Pulmonary hypertension 9. Chronic kidney disease stage III-stable. 10. History of trigeminal neuralgia 11. History of TIA 12. Prior history of right carotid endarterectomy General: Alert, confused, restless HEENT: Atraumatic, PERRLA, EOMI, Normocephalic Oral: Dry Mucosa Neck: Supple, No JVD, Negative Carotid Bruits Lungs: Clear to auscultation, Diminished Cardiovascular: Regular rate, Regular Rhythm, Normal S1, Normal S2, No murmurs Abdomen: Bowel Sounds Present, Soft, Non Tender, Non-Distended, Obese Extremities: No clubbing, No cyanosis, No edema, Capillary Refill Less than 3 Seconds Skin: No rashes, No breakdown, Left neck postop dressing clean dry and intact. Musculoskeletal: No Tenderness to Palpation of Joints or Extremities Neurological: Cranial nerves II-XII grossly intact, Neuro grossly intact Psych/Mental Status: Restless Patient seen and examined prior to discharge. Physical assessment as noted above. Transfer to [facility] for further NICU care. This patient was seen by VALERIE Argueta under the supervision of Dr. Valiente. - Physical Exam Vital Signs Temp Pulse Resp BP Pulse Ox 99.0 F 95 18 145/67 H 100 03/25/18 14:00 03/25/18 14:00 03/25/18 14:00 03/25/18 14:00 03/25/18 14:00 Oxygen Flow Rate (L/min) 2 Oxygen Delivery Method Room Air Weight: 175 lb 0.752 oz Body Mass Index (BMI) 34.2 Finger Stick Blood Glucose 134 Intake and Output for Last 24 Hours 03/23/18 03/24/18 03/25/18 23:59 23:59 23:59 Intake Total 1700 / 1700 393 / 393 Output Total 300 / 300 Balance 1700 / 1700 93 / 93 POC Glucose 03/25/18 03/24/18 03/24/18 06:41 22:01 21:17 POC Glucose 198 H 134 H 131 H 03/24/18 03/24/18 18:08 15:41 POC Glucose 192 H 183 H Additional Dressing/Incision Instructions:: Leave steri-strips in place for 1 w [place]. You may cover and protect the incision with dry gauze as needed for comfort Home Medications: Medications to take at Discharge Clopidogrel Bisulfate [Plavix] 75 mg PO DAILY 09/12/16 Insulin Aspart [Novolog Flexpen] 10 units SUBCUT BREAKFAST 09/12/16 Insulin Aspart [Novolog Flexpen] 20 units SUBCUT DINNER 09/12/16 Insulin Aspart [Novolog Flexpen] 20 units SUBCUT LUNCH 09/12/16 Levothyroxine [Synthroid] 100 mcg PO DAILY 09/12/16 Calcium Carbonate/Vitamin D3 [Calcium 500+D Tablet Chew] 600 mg PO BID 09/13/17 Cholecalciferol (Vitamin D3) [Vitamin D3] 1,000 unit PO BID 09/13/17 Fexofenadine HCl 180 mg PO DAILY 09/13/17 carbamazepine 200 mg tablet 100 mg PO DAILY tab 12/02/17 ferrous sulfate 325 mg (65 mg iron) tablet 325 mg PO DAILY tab 12/02/17 insulin detemir (U-100) 100 unit/mL (3 mL) subcutaneous pen 30 unit SC QHS ml 12/02/17 ondansetron HCl 4 mg tablet 4 mg PO .COMPLEX PRN tab 12/02/17 Aspirin E.C. [Ecotrin] 81 mg PO DAILY@0800 02/02/18 Atorvastatin Calcium [Lipitor] 80 mg PO QHS 02/02/18 Docusate Sodium [Colace] 100 mg PO DAILY 02/02/18 Isosorbide Mononitrate [Imdur] 60 mg PO QHS 02/02/18 Carbamazepine [Tegretol] 200 mg PO QHS 03/17/18 Diazepam [Valium] 5 mg PO PRN PRN 03/17/18 Hydrocodone Bitart/Apap 5-325 [[place] 5MG-325MG] 1 tablet PO Q6H PRN PRN 3 Days #8 tablet 03/24/18 Following Prescrptions Were Given to Patient: Hydrocodone Bitart/Apap 5-325 [[place] 5MG-325MG] 1 tablet PO Q6H PRN PRN 3 Days #8 tablet PRN Reason: Pain Other Amb Orders: Basic Metabolic Profile (BMP) Time Frame: 03/17/18, Location: Laboratory CBC-Complete Blood Cnt No Diff Time Frame: 03/17/18, Location: Laboratory Thyroid Stim Hormone (TSH) Time Frame: 03/17/18, Location: Laboratory Primary Care Physician: Twan Coy MD [Primary Care Provider] - Please Follow Up With: Shahbaz Young MD - [phone] When: Call to make an appointment to be seen in about 10 days. Disposition: Acute care Hospital Minutes spent on discharge:: 35 Patient Condition:: Fair Medical Necessity - Tobacco Use Smoking Status: Never smoker Tobacco Use: Non-smoker Meaningful Use Info Meaningful Use Diagnoses (Choose all that apply): Ischemic CVA - CVA Therapy Assessed for PT,OT and/or ST?: Yes - Ischemic Stroke Antithrombotic order at d/c?: Yes Dx of Atrial fib/flutter?: No Statins at discharge?: Yes Primary Dx Acute Ischemic CVA?: No IV tPA ordered during stay?: No Reason IV t-PA not ordered: Medical Contraindication
[2018-03-25 15:36] LABS: Bedside Glucose 235 mg/dL (70-110)
[2018-03-25 16:21] LABS: Bedside Glucose 215 mg/dL (70-110)
== END 2018-03-25 16:10 | disposition short-term general hospital (02) | DRG 37 ==
LOC: MS3 13:58 → PCU 17:08
PROVIDERS: Admitting Provider Surgery; Family Provider Family Medicine; PCP Family Medicine; Referring Provider Surgery; Visit Provider Internal Medicine
PROC: 03CL0ZZ Extirpation of Matter from Left Internal Carotid Artery, Open Approach (ICD-10-PCS; CPT 35301; principal; 2018-03-24 10:40)
DX: I65.22 Occlusion and stenosis of left carotid artery (principal); I63.9 Cerebral infarction, unspecified; G97.82 Other postprocedural complications and disorders of nervous system; I97.821 Postprocedural cerebrovascular infarction following other surgery; G93.49 Other encephalopathy; I16.0 Hypertensive urgency; E03.9 Hypothyroidism, unspecified; I27.20 Pulmonary hypertension, unspecified; I25.10 Atherosclerotic heart disease of native coronary artery without angina pectoris; Z95.5 Presence of coronary angioplasty implant and graft; I12.9 Hypertensive chronic kidney disease with stage 1 through stage 4 chronic kidney disease, or unspecified chronic kidney disease; E11.22 Type 2 diabetes mellitus with diabetic chronic kidney disease; N18.3 Chronic kidney disease, stage 3 (moderate); Z79.4 Long term (current) use of insulin; Z86.73 Personal history of transient ischemic attack (TIA), and cerebral infarction without residual deficits; Z79.899 Other long term (current) drug therapy
CPT/HCPCS: 36415; 70450; 70498; 70551; 80048; 82962; 84443; 85027; 88304; 88311; 88341; 88342; 93005; J7040; J7120; Q9967; J2405

== ENCOUNTER 2018-03-30 16:15 | Inpatient (IN) | payer MEDICARE, OTHER, SELFPAY ==
[2018-03-24 09:45] VITALS: BMI 34.2
[2018-03-30 16:47] LABS: Bedside Glucose 109 mg/dL (70-110)
--- NOTE | 2018-03-30 17:23 | PCM.PROGNOTE ---
<Kami Gibbs - Last Filed: 03/30/18 17:48> Subjective: Patient seen and examined. Arrived from [facility] today following recent right occipital ischemic CVA. She complains of constipation. She has left-sided weakness following CVA. - Physical Exam General: Alert, Oriented x3, Cooperative HEENT: Atraumatic, PERRLA, EOMI, Normocephalic Neck: Supple, No JVD, Negative Carotid Bruits Lungs: Clear to auscultation, Diminished Cardiovascular: Regular rate, Regular Rhythm, Normal S1, Normal S2, No murmurs Abdomen: Bowel Sounds Present, Soft, Non Tender, Non-Distended, Obese Extremities: No clubbing, No cyanosis, No edema, Capillary Refill Less than 3 Seconds Skin: No rashes, No breakdown Musculoskeletal: No Tenderness to Palpation of Joints or Extremities Neurological: Cranial nerves II-XII grossly intact, - - Left arm flaccid, severe weakness left lower extremity, left facial droop. Psych/Mental Status: Normal Affect, Appropriate Body Mass Index (BMI) 34.2 Finger Stick Blood Glucose 134 POC Glucose 03/30/18 16:40 POC Glucose 109 Medical Necessity - Tobacco Use Smoking Status: Never smoker Assessment/Plan All Active Problems (Last Reviewed 03/16/18 @ 09:49 by Isabela Burger) Stroke (Acute) TIA (transient ischemic attack) (Acute) 1. Debility status post recent right occipital infarct-residual flaccid left arm, severe left lower extremity weakness. PT/OT. Continue aspirin, statin. Patient discharged 03/25/18 to [facility] neuro ICU following CVA. Neurology was seen prior to discharge. Neurology recommended addition of Plavix if no contraindication from surgical standpoint with dual antiplatelet therapy for 3 months. Will defer this to neurology. 2. Recent left carotid endarterectomy 03/24/[address] Young. History of right carotid endarterectomy approximately 10 years ago. Management per surgery. 3. Hypertension-stable, continue Imdur, lisinopril, metoprolol. 4. CAD status post PCI- Follows with Dr. Paez. 5. Type 2 diabetes [id number] ACHS with sliding scale insulin and scheduled Humalog. Continue Lantus regimen. 6. Hypothyroidism-continue Synthroid regimen. 7. Pulmonary hypertension 8. Chronic kidney disease stage III-trend BMP. 9. History of trigeminal neuralgia 10. History of TIA DVT prophylaxis- Lovenox ms This patient was seen by VALERIE Argueta under the supervision of Dr. Corcoran. <Neva Corcoran - Last Filed: 03/30/18 20:30> - Physical Exam Vital Signs Temp Pulse Resp BP Pulse Ox 98.1 F 71 18 164/73 H 96 03/30/18 19:57 03/30/18 19:57 03/30/18 19:57 03/30/18 19:57 03/30/18 19:57 Oxygen Delivery Method Room Air Weight: 84.9 kg Body Mass Index (BMI) 36.5 Finger Stick Blood Glucose 134 POC Glucose 03/30/18 16:40 POC Glucose 109 Assessment/Plan This patient was seen in conjunction with Kami Gibbs [employer] WINDING MACHINE HELPER. I have independently interviewed and examined the patient and reviewed pertinent historical, laboratory, and other data. Please refer to her note for patient's presentation, findings, and recommendations. Hospital medicine team consulted for medical comanagement for above-mentioned patient. 72-year-old female with past medical history of hypertension, diabetes, CAD status post PCI, history of meningioma, history of TIA, status post left carotid endarterectomy, complicated by acute right posterior parietal and occipital infarct, tiny infarcts in left MCA territory with left hemiplegia. No further interventions were planned. Patient was discharged from the [facility] neuro ICU to the [facility] and to [facility] acute inpatient rehab floor. At the time of being seen, patient complains of frontal headache, denied any dizziness or palpitations or nausea or vomiting. 12 point review of systems was essentially negative except for nausea, left sided weakness and numbness Vitals were reviewed -blood pressure elevated at 164/73, heart rate 71, temperature 98.1, respiratory rate 18, SPO2 96% on room air Labs reviewed: Physical Exam: Gen: Obese, comfortable lying in bed,not pale, not jaundiced, alert oriented x3 ASSISTANT PROFESSOR OF ANTHROPOLOGY: AAO x3, left facial droop, flaccid paralysis of the left upper extremity and lower extremities, power of 1/5, decreased tone Power is 5/5 in the right upper and lower extremities CVS:HS I +II, regular, no murmurs, incision over the left side of neck RESP: CTA GI: Sounds present and normal, soft, nontender, no palpable organs EXT:Trace bilateral pedal edema ASSESSMENT: 1. Debility status post recent right posterior parietal and occipital infarct, tiny infarcts in left MCA territory with left hemiplegia 2. Hypertension, fairly uncontrolled 3. Recent left carotid endarterectomy 4. CAD s/p PCI 5. Type 2 DM 6. Hypothyroidism 7. Pulmonary hypertension 8. H/o meningioma 9. Seizure disorder Meds reviewed Plan: Continue on aspirin, statin, lisinopril Continue on home insulin with accucheks PT/OT per acute rehab protocol Reglan 10mg PO x 1 for intractable headache with nausea Code Visit Inpatient E&M: 62659 Subs Hosp L2
[2018-03-30 18:22] VITALS: BP 155/94; PULSE 65; RESP 18; TEMP 36.9; O2SAT 96; BMI 36.5
[2018-03-30] MEDS: Acetaminophen 325 MG Tablet 650 MG PO (19:44)
--- NOTE | 2018-03-30 19:47 | NURSING ---
Dr Bowie seeing pt and family in room. Pain meds just provided and pt reclining in bed.
[2018-03-30 19:57] VITALS: BP 164/73; PULSE 71; RESP 18; TEMP 36.7; O2SAT 96
[2018-03-30 20:00] VITALS: O2SAT 97
[2018-03-30] MEDS: Metoclopramide 10 MG Tablet PO (20:08)
[2018-03-30] MEDS: Senna/Docusate Sodium 1 Tablet 2 TABLET PO (21:44)
[2018-03-30 21:45] VITALS: PULSE 71
[2018-03-30] MEDS: Metoprolol Tartrate 25 MG Tablet 12.5 MG PO (21:45)
[2018-03-30] MEDS: Menthol/Lanolin/Calamine/Znox 113 GM Tube 1 APPLIC TOPICAL (21:47)
[2018-03-30] MEDS: Atorvastatin Calcium 80 MG Tablet PO (21:47)
[2018-03-30] MEDS: Isosorbide Mononitrate 60 MG Tablet PO (21:47)
[2018-03-30] MEDS: carBAMazepine 200 MG Tablet PO (21:54)
[2018-03-30] MEDS: Insulin Lispro 100 UNIT/ML INSULN.PEN SC (22:03)
[2018-03-30 22:31] VITALS: BMI 36.6
[2018-03-31 01:46] LABS: Bedside Glucose 170 mg/dL (70-110)
[2018-03-31] MEDS: Acetaminophen 325 MG Tablet 650 MG PO ×3 (03:45→18:00)
[2018-03-31] MEDS: Levothyroxine 100 MCG Tablet PO (06:16)
[2018-03-31 06:28] LABS: Hematocrit 29.3 % (37-47); Hemoglobin 9.8 g/dl (12.0-15.0); Mean Corp Hgb Conc 33.4 g/gl (32-36); Mean Corpuscular Hgb 31.3 pg (27.0-32.0); Mean Corpuscular Volume 93.6 fL (81-99); Mean Platelet Vol. 10.7 fl (6.2-12.0); Platelet Count 165 K/mm3 (150-450); RBC Distribution Width CV 13.5 % (11.6-14.6); Red Blood Count 3.13 M/mm3 (4.2-5.4); White Blood Count 9.2 K/mm3 (4.4-11.0)
[2018-03-31 06:29] LABS: Scan Indicated on CBC? Y/N NO
[2018-03-31 06:40] LABS: Anion Gap 10 (5-15); BUN 15 mg/dL (7-18); BUN/Creat Ratio 19.6 RATIO (10-20); Calcium,Total 8.2 mg/dL (8.5-10.1); Chloride 110 mmol/L (98-107); Creatinine, Serum 0.77 mg/dL (0.55-1.02); EST Glomerular Filtration Rate 78 mL/min (>60); Est Glom Filt Rate - Afr Amer 95 mL/min (>60); Estimated Creatinine Clearance 35.45 ml/min; Glucose 129 mg/dL (74-106); Potassium 3.5 mmol/L (3.5-5.1); Sodium Level 145 mmol/L (136-145)
[2018-03-31 06:45] VITALS: O2SAT 94
[2018-03-31 06:52] LABS: Bedside Glucose 123 mg/dL (70-110)
[2018-03-31 07:49] VITALS: BP 164/78; PULSE 74; RESP 18; TEMP 36.9; O2SAT 95
[2018-03-31 08:14] VITALS: PULSE 74
[2018-03-31] MEDS: Aspirin E.C. 81 MG Tablet PO (08:14)
[2018-03-31] MEDS: Lisinopril 20 MG Tablet PO (08:14)
[2018-03-31] MEDS: Metoprolol Tartrate 25 MG Tablet 12.5 MG PO ×2 (08:14→21:48)
[2018-03-31] MEDS: Cyanocobalamin 500 MCG Tablet PO (08:14)
[2018-03-31] MEDS: Senna/Docusate Sodium 1 Tablet 2 TABLET PO ×2 (08:14→21:47)
[2018-03-31] MEDS: Enoxaparin 40 MG/0.4 ML Syringe SC (08:15)
[2018-03-31] MEDS: Menthol/Lanolin/Calamine/Znox 113 GM Tube 1 APPLIC TOPICAL ×2 (08:15→21:50)
[2018-03-31] MEDS: carBAMazepine 200 MG Tablet 100 MG PO (08:15)
--- NOTE | 2018-03-31 10:45 | NURSING ---
Medical record request signed by patient and faxed to [facility] per order to request information. Awaiting information to be sent.
--- NOTE | 2018-03-31 11:19 | PCM.HP.STD ---
History of Present Illness Date of Admission: 03/30/18 Chief Complaint: left sided weakness The patient is a 72 year old F noted to the [facility] acute rehab unit for rehabilitation following a right MCA distribution stroke as well as a very small left MCA distribution stroke. She was originally at [facility] and on 03/24/18 began to experience confusion. According to the notes stroke team was called however the patient was nonfocal. Subsequent workup included a CTA of the head and neck which did not disclose any significant stenosis but MRI showed stroke. The patient was then transferred to the [facility] where further testing was performed. Per the notes a TCD was performed as well as an echocardiogram however at the current time I do not have the results of these tests. Therapies were initiated at the [facility] and she tolerated therapies. She also apparently passed her swallow evaluation and was transferred back here to [facility] for further rehabilitation so that she could regain her prior level of functional independence living at home. She also has a history of meningioma status post gamma knife therapy in 2017. Apparently she had some dizziness leading to the therapy for the meningioma which then resolved. She also has a history of trigeminal neuralgia and is on Tegretol. There is also history of coronary artery disease hypertension and hypercholesterolemia as well as diabetes. Patient currently denies pain. Therapies have noted left neglect. Therapies also note flaccid paralysis of her left upper extremity. Nursing has noted some difficulty with swallowing which sounds like apraxia by description however we will make her n.p.o. for now and await speech therapy recommendations Per previous [place] neurology consultation note: The patient is a 72 year old CF with PMH HTN, HLD, DM, , H/O Right CEA in the past, s/p Left CEA ( yesterday 03/24/18)TN on Carbamazepine, CAD s/p stents, CKD, hypothyroidism admitted with post procedure confusion and disorientation. Per documentation her post procedure course was complicated by hypertension, then later yesterday night (03/24/18) she was confused and disoriented, stroke alert was called, but per documentation there was no focal deficit or facial droop at that time. Patient at present complains of mild generalized headache. Is on ASA/Plavix at baseline per , lives with , uses walker to ambulate, had intermittent falls in the past which has improved per , and does not drive. CT angiogram neck done 03/24/2018 reported to show postoperative changes in bilateral carotid bulbs without evidence of hemodynamically significant stenosis. No postoperative hemorrhage. 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 MRI brain without contrast on 03/24/2018 reported to show acute infarct in the posterior medial right occipital lobe within the right [employer] territory and questionable acute infarcts within the basal ganglia (as reported by radiologist Dr. Yadira Blount). Per nurse taking care of the patient this morning patient was very agitated and trying to climb up out of the bed and was given Haldol. Per Dr. Young's note she had an attempted left carotid endarterectomy procedure on 02/07/2018 but it was aborted then due to malignant hypertension. No witnessed seizures per documentation. Past Medical History Past Medical History (Chronic Problems): Chronic Problems (Last Reviewed 03/31/18 @ 11:23 by Panda Ferreira MD) Carotid stenosis, left (Chronic) Nonrheumatic aortic (valve) stenosis (Chronic) Pulmonary hypertension (Chronic) Nonrheumatic tricuspid (valve) insufficiency (Chronic) Nonrheumatic mitral (valve) insufficiency (Chronic) Nonrheumatic mitral (valve) prolapse (Chronic) CKD (chronic kidney disease) stage 3, GFR 30-59 ml/min (Chronic) Type 2 diabetes mellitus (Chronic) Essential hypertension (Chronic) Carotid artery stenosis (Chronic) Left Presence of stent in coronary artery (Chronic ~1999) PTCA/Stent to the LAD 1999 Atherosclerotic heart disease of [place] coronary artery without angina pectoris (Chronic) Hyperlipemia (Chronic) Hypothyroidism (Chronic) Medical History: Medical History (Last Reviewed 03/31/18 @ 11:23 by Panda Ferreira MD) Nonrheumatic aortic (valve) stenosis (Chronic) I35.0 Pulmonary hypertension (Chronic) I27.20 Nonrheumatic tricuspid (valve) insufficiency (Chronic) I36.1 Nonrheumatic mitral (valve) insufficiency (Chronic) I34.0 Nonrheumatic mitral (valve) prolapse (Chronic) I34.1 CKD (chronic kidney disease) stage 3, GFR 30-59 ml/min (Chronic) N18.3 Type 2 diabetes mellitus (Chronic) E11.9 Essential hypertension (Chronic) I10 Carotid artery stenosis (Chronic) I65.29 Left Presence of stent in coronary artery (Chronic) Onset Date: ~1999 Z95.5 PTCA/Stent to the LAD 1999 Atherosclerotic heart disease of [place] coronary artery without angina pectoris (Chronic) I25.10 Hyperlipemia (Chronic) E78.5 Hypothyroidism (Chronic) E03.9 GERD (gastroesophageal reflux disease) K21.9 History of uterine cancer Z85.42 Trigeminal neuralgia G50.0 Meningioma D32.9 Allergies adhesive tape Allergy (Verified 03/17/18 13:20) Rash Penicillins Allergy (Verified 03/17/18 13:20) Rash Home Medications: Ambulatory Orders Medication Instructions Recorded Clopidogrel Bisulfate [Plavix] 75 mg PO DAILY 09/12/16 Insulin Aspart [Novolog Flexpen] 10 units SUBCUT BREAKFAST 09/12/16 Insulin Aspart [Novolog Flexpen] 20 units SUBCUT DINNER 09/12/16 Insulin Aspart [Novolog Flexpen] 20 units SUBCUT LUNCH 09/12/16 Levothyroxine [Synthroid] 100 mcg PO DAILY 09/12/16 Calcium Carbonate/Vitamin D3 1,000 mg PO BID 09/13/17 [Calcium 500+D Tablet Chew] Cholecalciferol (Vitamin D3) 1,000 unit PO BID 09/13/17 [Vitamin D3] Fexofenadine HCl 180 mg PO DAILY 09/13/17 carbamazepine 200 mg tablet 100 mg PO DAILY tab 12/02/17 ferrous sulfate 325 mg (65 mg 325 mg PO DAILY tab 12/02/17 iron) tablet insulin detemir (U-100) 100 40 unit SC QHS ml 12/02/17 unit/mL (3 mL) subcutaneous pen ondansetron HCl 4 mg tablet 4 mg PO .COMPLEX PRN tab 12/02/17 Aspirin E.C. [Ecotrin] 81 mg PO DAILY@0800 02/02/18 Atorvastatin Calcium [Lipitor] 80 mg PO QHS 02/02/18 Docusate Sodium [Colace] 100 mg PO DAILY 02/02/18 Isosorbide Mononitrate [Imdur] 60 mg PO QHS 02/02/18 Carbamazepine [Tegretol] 200 mg PO QHS 03/17/18 Diazepam [Valium] 5 mg PO DAILY PRN PRN 03/17/18 Acetaminophen [Tylenol] 325 mg PO Q4H PRN PRN 03/30/18 Cyanocobalamin (Vitamin B-12) 500 mcg PO DAILY 03/30/18 [B-12] Lisinopril 20 mg PO DAILY 03/30/18 Metoprolol Tartrate 12.5 mg PO BID 03/30/18 Surgical History: Surgical History (Last Reviewed 03/31/18 @ 11:23 by Panda Ferreira MD) Presence of coronary angioplasty implant and graft Onset Date: ~1999 Z95.5 PTCA/Stent to the LAD 2000 History of cataract surgery Z98.49 History of hysterectomy Z90.710 History of right-sided carotid endarterectomy Z98.890 S/P wrist surgery Z98.890 ORIF Smoking Status: Never smoker - *Family History Maternal Family History: Family History (Last Reviewed 03/31/18 @ 11:24 by Panda Ferreira MD) Mother Heart disease Diabetes Cancer Brother Cancer Diabetes Sister Cancer Diabetes Review of Systems Constitutional: Denies: Chills, Fever, Weight Change HEENT: Reports: Difficulty Swallowing. Denies: Head Aches, Sinus Congestion, Sinus Drainage Cardiovascular: Denies: Chest Pain Respiratory: Denies: Cough, Shortness of Breath Gastrointestinal: Denies: Abdominal Pain Genitourinary: Denies: Dysuria Musculoskeletal: Denies: Arm Pain Neurological: Reports: Change in Speech, Difficulty swallowing, Focal weakness Psychiatric: Denies: Anxiety, Depression Hematologic/ Lymphatic: Denies: Adenopathy VTE Information - Inpt Only VTE Present on Admission: Yes VTE Pharm Prophylaxis ordered?: Yes Objective: On examination she is awake and alert Mild dysarthria Mild left central 7 Left field cut Left arm is flaccid Minimal movement from the left leg Left neglect - Physical Exam Lungs: Clear to auscultation Cardiovascular: Regular rate Abdomen: Bowel Sounds Present Extremities: No Calf Tenderness Psych/Mental Status: Flat Affect Vital Signs Temp Pulse Resp BP Pulse Ox 36.9 C 74 18 164/78 H 95 03/31/18 07:49 03/31/18 08:14 03/31/18 07:49 03/31/18 07:49 03/31/18 07:49 Oxygen Delivery Method Room Air Weight: 84.9 kg Body Mass Index (BMI) 36.5 Finger Stick Blood Glucose 134 Intake and Output for Last 24 Hours 03/29/18 03/30/18 03/31/18 23:59 23:59 23:59 Intake Total 120 / 120 160 / 160 Balance 120 / 120 160 / 160 Laboratory Tests Past 24 Hrs 03/31/18 03/31/18 06:14 06:14 WBC 9.2 RBC 3.13 L Hgb 9.8 L Hct 29.3 L MCV 93.6 MCH 31.3 MCHC 33.4 RDW 13.5 RDW Differential 44.0 H Plt Count 165 MPV 10.7 Sodium 145 Potassium 3.5 Chloride 110 H Carbon Dioxide 25.0 Anion Gap 10 BUN 15 Creatinine 0.77 Estim Creat Clear Calc 35.45 Est GFR (MDRD) Af Amer 95 Est GFR (MDRD) Non-Af 78 BUN/Creatinine Ratio 19.6 Glucose 129 H Calcium 8.2 L POC Glucose 03/31/18 03/30/18 03/30/18 06:18 21:43 16:40 POC Glucose 123 H 170 H 109 Current Medications Generic Name Dose Route Start Last Admin Trade Name Freq PRN Reason Stop Dose Admin Acetaminophen 650 mg 03/30/18 18:13 03/31/18 03:45 Tylenol PO 650 mg Q4H PRN PRN Administration PAIN Aspirin 81 mg 03/31/18 08:00 03/31/18 08:14 Ecotrin PO 81 mg DAILY@0800 YANELI Administration Atorvastatin Calcium 80 mg 03/30/18 22:00 03/30/18 21:47 Lipitor PO 80 mg QHS [facility] Administration Bisacodyl 10 mg 03/30/18 17:26 Dulcolax RECTAL .PRN X 1 PRN Constipation Calamine/Phenol 1 applic 03/30/18 22:00 03/31/18 08:15 Calmoseptine Ointment TOPICAL 1 applicatio BID [facility] Administration Protocol Carbamazepine 100 mg 03/31/18 10:00 03/31/18 08:15 Tegretol PO 100 mg DAILY YANELI Administration Carbamazepine 200 mg 03/30/18 22:00 03/30/18 21:54 Tegretol PO 200 mg QHS [facility] Administration Cholecalciferol 1,000 unit 03/30/18 22:00 03/31/18 08:14 Vitamin D PO 1,000 unit BID YANELI Administration Cyanocobalamin 500 mcg 03/31/18 10:00 03/31/18 08:14 Vitamin B12 PO 500 mcg DAILY YANELI Administration Diazepam 5 mg 03/30/18 17:16 Valium PO DAILY PRN PRN ANXIETY Enoxaparin Sodium 40 mg 03/31/18 10:00 03/31/18 08:15 Lovenox SC 40 mg DAILY YANELI Administration Ferrous Sulfate 325 mg 03/31/18 12:00 Ferrous Sulfate PO 1200 [facility] Insulin Glargine 40 units 03/30/18 22:00 03/30/18 21:48 Lantus ([facility]) SC 40 units QHS [facility] Administration Insulin Human Lispro 10 unit 03/31/18 08:00 03/31/18 10:19 Humalog Kwikpen ([facility]) SC Not Given BREAKFAST YANELI Insulin Human Lispro 20 unit 03/31/18 17:00 Humalog Kwikpen ([facility]) SC DINNER [facility] Insulin Human Lispro 20 unit 03/31/18 12:00 Humalog Kwikpen ([facility]) SC LUNCH YANELI Insulin Human Lispro 0 unit 03/30/18 22:00 03/31/18 08:05 Humalog Kwikpen ([facility]) SC Not Given ACHS [facility] Protocol Isosorbide Mononitrate 60 mg 03/30/18 22:00 03/30/18 21:47 Imdur PO 60 mg QHS [facility] Administration Levothyroxine Sodium 100 mcg 03/31/18 06:00 03/31/18 06:16 Synthroid PO 100 mcg DAILY@0600 [facility] Administration Lisinopril 20 mg 03/31/18 10:00 03/31/18 08:14 Zestril PO 20 mg DAILY YANELI Administration Magnesium Hydroxide 30 ml 03/30/18 17:26 Milk Of Magnesia PO .PRN X 1 PRN Constipation Metoprolol Tartrate 12.5 mg 03/30/18 22:00 03/31/18 08:14 Lopressor (Beta [place]) PO 12.5 mg BID [facility] Administration Nystatin 500,000 unit 03/31/18 10:00 03/31/18 10:20 Nystatin PO Not Given 4X/DAY [facility] Senna/Docusate Sodium 2 tablet 03/30/18 22:00 03/31/18 08:14 Senokot-S, Elisa-Colace PO 2 tablet BID YANELI Administration Assessment/Plan All Active Problems (Last Reviewed 03/31/18 @ 11:23 by Panda Ferreira MD) Stroke (Acute) TIA (transient ischemic attack) (Acute) Debility status post right MCA distribution infarct as well as left MCA distribution infarct. She is status post left ICA CEA on 03/24/18 and was previously functionally independent. Goal is duration of prior level of functional independence. This is complicated by her debility due to her right MCA distribution stroke and smaller left MCA distribution stroke. Plan: Physical therapy for gait and balance Occupational Therapy for ADLs Speech therapy: Currently n.p.o. awaiting reevaluation Hypertension: Continue antihypertensives Stroke status post CEA: Continue aspirin, Plavix, blood pressure control, statin therapy. We will need to verify testing from the [facility] including echocardiogram given that this is a bilateral infarct as well as supposedly a TCD embolic study. Diabetes: Insulin therapy, monitor Accu-Cheks Bowel protocol DVT prophylaxis: Lovenox History of meningioma: Status post gamma knife therapy in 2017, this appears to be stable History of trigeminal neuralgia: On Tegretol 100/200. Will continue but will check Tegretol level.
--- NOTE | 2018-03-31 11:23 | HP.PCM_ITS ---
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 She was originally at [facility] and on 03/24/18 began to experience confusion. According to the notes stroke team was called however the patient was nonfocal. Subsequent workup included a CTA of the head and neck which did not disclose any significant stenosis but MRI showed stroke. The patient was then transferred to the [facility] where further testing was performed. Per the notes a TCD was performed as well as an echocardiogram however at the current time I do not have the results of these tests. Therapies were initiated at the [facility] and she tolerated therapies. She also apparently passed her swallow evaluation and was transferred back here to [facility] for further rehabilitation so that she could regain her prior level of functional independence living at home. She also has a history of meningioma status post gamma knife therapy in 2017. Apparently she had some dizziness leading to the therapy for the meningioma which then resolved. She also has a history of trigeminal neuralgia and is on Tegretol. There is also history of coronary artery disease hypertension and hypercholesterolemia as well as diabetes. Patient currently denies pain. Therapies have noted left neglect. Therapies also note flaccid paralysis of her left upper extremity. Nursing has noted some difficulty with swallowing which sounds like apraxia by description however we will make her n.p.o. for now and await speech therapy recommendations Per previous [place] neurology consultation note: The patient is a 72 year old CF with PMH HTN, HLD, DM, , H/O Right CEA in the past, s/p Left CEA ( yesterday 03/24/18)TN on Carbamazepine, CAD s/p stents, CKD, hypothyroidism admitted with post procedure confusion and disorientation. Per documentation her post procedure course was complicated by hypertension, then later yesterday night (03/24/18) she was confused and disoriented, stroke alert was called, but per documentation there was no focal deficit or facial droop at that time. Patient at present complains of mild generalized headache. Is on ASA/Plavix at baseline per , lives with , uses walker to ambulate, had intermittent falls in the past which has improved per , and does not drive. CT angiogram neck done 03/24/2018 reported to show postoperative changes in bilateral carotid bulbs without evidence of hemodynamically significant stenosis. No postoperative hemorrhage. 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 MRI brain without contrast on 03/24/2018 reported to show acute infarct in the posterior medial right occipital lobe within the right NEEDLE GRADER territory and questionable acute infarcts within the basal ganglia (as reported by radiologist Dr. Yadira Blount). Per nurse taking care of the patient this morning patient was very agitated and trying to climb up out of the bed and was given Haldol. Per Dr. Young's note she had an attempted left carotid endarterectomy procedure on 02/07/2018 but it was aborted then due to malignant hypertension. No witnessed seizures per documentation. Past Medical History Past Medical History (Chronic Problems): Chronic Problems (Last Reviewed 03/31/18 @ 11:23 by Panda Ferreira MD) Carotid stenosis, left (Chronic) Nonrheumatic aortic (valve) stenosis (Chronic) Pulmonary hypertension (Chronic) Nonrheumatic tricuspid (valve) insufficiency (Chronic) Nonrheumatic mitral (valve) insufficiency (Chronic) Nonrheumatic mitral (valve) prolapse (Chronic) CKD (chronic kidney disease) stage 3, GFR 30-59 ml/min (Chronic) Type 2 diabetes mellitus (Chronic) Essential hypertension (Chronic) Carotid artery stenosis (Chronic) Left Presence of stent in coronary artery (Chronic ~1999) PTCA/Stent to the LAD 1999 Atherosclerotic heart disease of [place] coronary artery without angina pectoris (Chronic) Hyperlipemia (Chronic) Hypothyroidism (Chronic) Medical History: Medical History (Last Reviewed 03/31/18 @ 11:23 by Panda Ferreira MD) Nonrheumatic aortic (valve) stenosis (Chronic) I35.0 Pulmonary hypertension (Chronic) I27.20 Nonrheumatic tricuspid (valve) insufficiency (Chronic) I36.1 Nonrheumatic mitral (valve) insufficiency (Chronic) I34.0 Nonrheumatic mitral (valve) prolapse (Chronic) I34.1 CKD (chronic kidney disease) stage 3, GFR 30-59 ml/min (Chronic) N18.3 Type 2 diabetes mellitus (Chronic) E11.9 Essential hypertension (Chronic) I10 Carotid artery stenosis (Chronic) I65.29 Left Presence of stent in coronary artery (Chronic) Onset Date: ~1999 Z95.5 PTCA/Stent to the LAD 1999 Atherosclerotic heart disease of [place] coronary artery without angina pectoris (Chronic) I25.10 Hyperlipemia (Chronic) E78.5 Hypothyroidism (Chronic) E03.9 GERD (gastroesophageal reflux disease) K21.9 History of uterine cancer Z85.42 Trigeminal neuralgia G50.0 Meningioma D32.9 Allergies adhesive tape Allergy (Verified 03/17/18 13:20) Rash Penicillins Allergy (Verified 03/17/18 13:20) Rash Home Medications: Ambulatory Orders Medication Instructions Recorded Clopidogrel Bisulfate [Plavix] 75 mg PO DAILY 09/12/16 Insulin Aspart [Novolog Flexpen] 10 units SUBCUT BREAKFAST 09/12/16 Insulin Aspart [Novolog Flexpen] 20 units SUBCUT DINNER 09/12/16 Insulin Aspart [Novolog Flexpen] 20 units SUBCUT LUNCH 09/12/16 Levothyroxine [Synthroid] 100 mcg PO DAILY 09/12/16 Calcium Carbonate/Vitamin D3 1,000 mg PO BID 09/13/17 [Calcium 500+D Tablet Chew] Cholecalciferol (Vitamin D3) 1,000 unit PO BID 09/13/17 [Vitamin D3] Fexofenadine HCl 180 mg PO DAILY 09/13/17 carbamazepine 200 mg tablet 100 mg PO DAILY tab 12/02/17 ferrous sulfate 325 mg (65 mg 325 mg PO DAILY tab 12/02/17 iron) tablet insulin detemir (U-100) 100 40 unit SC QHS ml 12/02/17 unit/mL (3 mL) subcutaneous pen ondansetron HCl 4 mg tablet 4 mg PO .COMPLEX PRN tab 12/02/17 Aspirin E.C. [Ecotrin] 81 mg PO DAILY@0800 02/02/18 Atorvastatin Calcium [Lipitor] 80 mg PO QHS 02/02/18 Docusate Sodium [Colace] 100 mg PO DAILY 02/02/18 Isosorbide Mononitrate [Imdur] 60 mg PO QHS 02/02/18 Carbamazepine [Tegretol] 200 mg PO QHS 03/17/18 Diazepam [Valium] 5 mg PO DAILY PRN PRN 03/17/18 Acetaminophen [Tylenol] 325 mg PO Q4H PRN PRN 03/30/18 Cyanocobalamin (Vitamin B-12) 500 mcg PO DAILY 03/30/18 [B-12] Lisinopril 20 mg PO DAILY 03/30/18 Metoprolol Tartrate 12.5 mg PO BID 03/30/18 Surgical History: Surgical History (Last Reviewed 03/31/18 @ 11:23 by Panda Ferreira MD) Presence of coronary angioplasty implant and graft Onset Date: ~1999 Z95.5 PTCA/Stent to the LAD 2000 History of cataract surgery Z98.49 History of hysterectomy Z90.710 History of right-sided carotid endarterectomy Z98.890 S/P wrist surgery Z98.890 ORIF Smoking Status: Never smoker - *Family History Maternal Family History: Family History (Last Reviewed 03/31/18 @ 11:24 by Panda Ferreira MD) Mother Heart disease Diabetes Cancer Brother Cancer Diabetes Sister Cancer Diabetes Review of Systems Constitutional: Denies: Chills, Fever, Weight Change HEENT: Reports: Difficulty Swallowing. Denies: Head Aches, Sinus Congestion, Sinus Drainage Cardiovascular: Denies: Chest Pain Respiratory: Denies: Cough, Shortness of Breath Gastrointestinal: Denies: Abdominal Pain Genitourinary: Denies: Dysuria Musculoskeletal: Denies: Arm Pain Neurological: Reports: Change in Speech, Difficulty swallowing, Focal weakness Psychiatric: Denies: Anxiety, Depression Hematologic/ Lymphatic: Denies: Adenopathy VTE Information - Inpt Only VTE Present on Admission: Yes VTE Pharm Prophylaxis ordered?: Yes Objective: On examination she is awake and alert Mild dysarthria Mild left central 7 Left field cut Left arm is flaccid Minimal movement from the left leg Left neglect - Physical Exam Lungs: Clear to auscultation Cardiovascular: Regular rate Abdomen: Bowel Sounds Present Extremities: No Calf Tenderness Psych/Mental Status: Flat Affect Vital Signs Temp Pulse Resp BP Pulse Ox 36.9 C 74 18 164/78 H 95 03/31/18 07:49 03/31/18 08:14 03/31/18 07:49 03/31/18 07:49 03/31/18 07:49 Oxygen Delivery Method Room Air Weight: 84.9 kg Body Mass Index (BMI) 36.5 Finger Stick Blood Glucose 134 Intake and Output for Last 24 Hours 03/29/18 03/30/18 03/31/18 23:59 23:59 23:59 Intake Total 120 / 120 160 / 160 Balance 120 / 120 160 / 160 Laboratory Tests Past 24 Hrs 03/31/18 03/31/18 06:14 06:14 WBC 9.2 RBC 3.13 L Hgb 9.8 L Hct 29.3 L MCV 93.6 MCH 31.3 MCHC 33.4 RDW 13.5 RDW Differential 44.0 H Plt Count 165 MPV 10.7 Sodium 145 Potassium 3.5 Chloride 110 H Carbon Dioxide 25.0 Anion Gap 10 BUN 15 Creatinine 0.77 Estim Creat Clear Calc 35.45 Est GFR (MDRD) Af Amer 95 Est GFR (MDRD) Non-Af 78 BUN/Creatinine Ratio 19.6 Glucose 129 H Calcium 8.2 L POC Glucose 03/31/18 03/30/18 03/30/18 06:18 21:43 16:40 POC Glucose 123 H 170 H 109 Current Medications Generic Name Dose Route Start Last Admin Trade Name Freq PRN Reason Stop Dose Admin Acetaminophen 650 mg 03/30/18 18:13 03/31/18 03:45 Tylenol PO 650 mg Q4H PRN PRN Administration PAIN Aspirin 81 mg 03/31/18 08:00 03/31/18 08:14 Ecotrin PO 81 mg DAILY@0800 YANELI Administration Atorvastatin Calcium 80 mg 03/30/18 22:00 03/30/18 21:47 Lipitor PO 80 mg QHS [facility] Administration Bisacodyl 10 mg 03/30/18 17:26 Dulcolax RECTAL .PRN X 1 PRN Constipation Calamine/Phenol 1 applic 03/30/18 22:00 03/31/18 08:15 Calmoseptine Ointment TOPICAL 1 applicatio BID [facility] Administration Protocol Carbamazepine 100 mg 03/31/18 10:00 03/31/18 08:15 Tegretol PO 100 mg DAILY YANELI Administration Carbamazepine 200 mg 03/30/18 22:00 03/30/18 21:54 Tegretol PO 200 mg QHS [facility] Administration Cholecalciferol 1,000 unit 03/30/18 22:00 03/31/18 08:14 Vitamin D PO 1,000 unit BID YANELI Administration Cyanocobalamin 500 mcg 03/31/18 10:00 03/31/18 08:14 Vitamin B12 PO 500 mcg DAILY YANELI Administration Diazepam 5 mg 03/30/18 17:16 Valium PO DAILY PRN PRN ANXIETY Enoxaparin Sodium 40 mg 03/31/18 10:00 03/31/18 08:15 Lovenox SC 40 mg DAILY YANELI Administration Ferrous Sulfate 325 mg 03/31/18 12:00 Ferrous Sulfate PO 1200 [facility] Insulin Glargine 40 units 03/30/18 22:00 03/30/18 21:48 Lantus ([facility]) SC 40 units QHS [facility] Administration Insulin Human Lispro 10 unit 03/31/18 08:00 03/31/18 10:19 Humalog Kwikpen ([facility]) SC Not Given BREAKFAST YANELI Insulin Human Lispro 20 unit 03/31/18 17:00 Humalog Kwikpen ([facility]) SC DINNER [facility] Insulin Human Lispro 20 unit 03/31/18 12:00 Humalog Kwikpen ([facility]) SC LUNCH YANELI Insulin Human Lispro 0 unit 03/30/18 22:00 03/31/18 08:05 Humalog Kwikpen ([facility]) SC Not Given ACHS [facility] Protocol Isosorbide Mononitrate 60 mg 03/30/18 22:00 03/30/18 21:47 Imdur PO 60 mg QHS [facility] Administration Levothyroxine Sodium 100 mcg 03/31/18 06:00 03/31/18 06:16 Synthroid PO 100 mcg DAILY@0600 [facility] Administration Lisinopril 20 mg 03/31/18 10:00 03/31/18 08:14 Zestril PO 20 mg DAILY YANELI Administration Magnesium Hydroxide 30 ml 03/30/18 17:26 Milk Of Magnesia PO .PRN X 1 PRN Constipation Metoprolol Tartrate 12.5 mg 03/30/18 22:00 03/31/18 08:14 Lopressor (Beta Marino) PO 12.5 mg BID [facility] Administration Nystatin 500,000 unit 03/31/18 10:00 03/31/18 10:20 Nystatin PO Not Given 4X/DAY [facility] Senna/Docusate Sodium 2 tablet 03/30/18 22:00 03/31/18 08:14 Senokot-S, Elisa-Colace PO 2 tablet BID YANELI Administration Assessment/Plan All Active Problems (Last Reviewed 03/31/18 @ 11:23 by Panda Ferreira MD) Stroke (Acute) TIA (transient ischemic attack) (Acute) Debility status post right MCA distribution infarct as well as left MCA distribution infarct. She is status post left ICA CEA on 03/24/18 and was previously functionally independent. Goal is duration of prior level of functional independence. This is complicated by her debility due to her right MCA distribution stroke and smaller left MCA distribution stroke. Plan: Physical therapy for gait and balance Occupational Therapy for ADLs Speech therapy: Currently n.p.o. awaiting reevaluation Hypertension: Continue antihypertensives Stroke status post CEA: Continue aspirin, Plavix, blood pressure control, statin therapy. We will need to verify testing from the [facility] including echocardiogram given that this is a bilateral infarct as well as supposedly a TCD embolic study. Diabetes: Insulin therapy, monitor Accu-Cheks Bowel protocol DVT prophylaxis: Lovenox History of meningioma: Status post gamma knife therapy in 2017, this appears to be stable History of trigeminal neuralgia: On Tegretol 100/200. Will continue but will check Tegretol level.
--- NOTE | 2018-03-31 11:33 | REHABEVAL_ITS ---
Admission Information Status Changes from Prescreening?: No changes Identified Actual Problem List:: Pain, ALteration in Cmfrt, Cognitve Impr/Memory Loss, Mobility Impaired, Self Care Deficit, Ineffective Communication, Know.Dfct/Disease Process, Know.Dfct of Medicaitons, Diabetes, Hyperglycemia, BP, Hypertension, Ineffect.D/C Plan r/t Psy Potential Problem List:: DVT, Bleeding, Infection, UTI, Aspiration, Falls, Skin Integrity, Depression Risk of Complications DVT: LMWH, RODRIGUE Hose, Sequential Compression Device Bleeding: Monitor Lab Values, Nursing to Teach Precautions for anti-coagulation therapy., Wound, if applicable, to be assessed every shift., Stroke patients assessed for lethargy or change in status. Infection: Clinical Staff to Monitor for S/S of infection:, S/S of infection include fever, redness, warmth, etc. Urinary Tract Infection: Monitor for frequency, burning, discomfort, or incontinence., Nursing will obtain urine sample for urinalysis and C&S when ord ered. Aspiration: Clinical staff will monitor for coughing, drooling, congestion., Speech will evaluate swallowing and dsyphasia., Nursing will monitor patient swallowing during meals. Falls: Patient will be evaluated for Fall Precautions, Patient will be placed on Fall Precautions as indicated per protocol. Skin Breakdown: Nursing will assess skin daily using assessment tool., Nursing will place on Skin Breakdown Precautions as indicated. Pain: Clinical staff will assess patient's pain level per protocol., Medications will be given, if needed, and the pain level reassessed., Other methods: Massage, distraction, decrease stimulus, etc. used PRN. Plan of Care Patient requires physician specializing in physical medicine and rehab oversight to provide close medical supervision of rehab issues including: Pain Management, Sleep Problems, Bowel and Bladder, Medical and co-morbidity Management, DVT prophylaxis, Rehabilitation Leadership, Coordination of treatment team Patient needs Physical Therapy: For a minimum of 1 hour, At least 5 out of 7 days Patient needs Physical Therapy to improve:: Mobility, Mobility, Mobility, Strengthening, Transfers, Stretching, ROM, Endurance, Stairs, Gait, Balance Patient needs Occupational Therapy: For a minimum of 1 hour, At least 5 out of 7 days Patient needs Occupational Therapy to improve ADL's incl.: Eating, Grooming, Bathing, Dressing, Toileting, Toilet transfers, Community Reintegration, Higher functioning activities, Household tasks, Adaptive Equipment, Splinting, Other activities as determined Patient requires speech therapy: For a minimum of 1 hour, At least 5 out of 7 days Patient requires speech therapy for: Swallowing, Cognition, Language Skills, Compensatory Strategies Patient requires 24/7 Rehabilitation Nursing for: Pain Issues, Identifying and preventing risk factors, Monitoring and reporting current medical conditions, Assisting with ambulation, transfer, and all ADL's, Teaching patients about disease process and medications, Family teaching, Providing safe environment, Bowel and Bladder Issues, Skin integrity, Medication Management Patient needs Waiter/Waitress Head/ Case Management for: Discharge Planning, Arranging Home Equipment or Services, Family Interventions Patient needs Dietary and Nutrition Services for: Adequate Nutrition, Nutritional Supplements, Nutritional Education Goals Patient will remain: free from falls, or injury at time of discharge. Patient will perform bed mobility at: MOD I level of assist. Patient will complete transfers from bed to chair at: MOD I level of assist. Patient will ambulate: 100 feet, with MOD I assist, with LRD Patient will complete upper body dressing at: MOD I level of assist. Patient will complete lower body dressing at: MOD I level of assist. Patient will complete toileting at: MOD I level of assist. Patient will perform bathing at: MOD I level of assist. Patient will complete grooming at: MOD I level of assist. Patient will complete home management skills at: MOD I level of assist. Patient will achieve: 12 stairs, at MOD I assist Patient will have pain level of: of 3 or less Patient's skin will: remain intact, free from infection. Patient will receive: adequate nutrition. Discharge Planning Pt Prognosis for Sig. Practical Improv. w/in Reasonable Time: Good Anticipated D/C Destination: Home with Outpt Therapy Was Preadmission Assessment Accurate?: Yes
[2018-03-31] MEDS: Insulin Lispro 100 UNIT/ML INSULN.PEN SC ×3 (11:48→21:49)
[2018-03-31 11:56] LABS: Bedside Glucose 150 mg/dL (70-110)
[2018-03-31] MEDS: Ferrous Sulfate 325 MG Tablet PO (13:05)
[2018-03-31] MEDS: NYSTATIN 500,000 UNIT/5 ML UDC 500000 UNIT PO ×3 (13:06→21:48)
[2018-03-31 14:03] LABS: Carbamazepine (Tegretol) 11.2 ug/mL (4.0-12.0)
--- NOTE | 2018-03-31 14:32 | CASEMGMT ---
Reviewed and approved attached social sciences instructor student documentation. Frances GONSALEZ, MIKEL
--- NOTE | 2018-03-31 16:10 | NS ---
Per speech therapist recommendation - patient is to receive mechanical consistency
[2018-03-31 16:27] LABS: Bedside Glucose 151 mg/dL (70-110)
[2018-03-31] MEDS: Glucerna Shake 120 ML LIQUID PO ×2 (17:28→21:50)
[2018-03-31 19:44] VITALS: BP 166/78; PULSE 73; RESP 16; TEMP 36.8; O2SAT 95
[2018-03-31] MEDS: carBAMazepine 200 MG Tablet PO (21:47)
[2018-03-31 21:48] VITALS: BP 166/78; PULSE 73
[2018-03-31] MEDS: Atorvastatin Calcium 80 MG Tablet PO (21:49)
[2018-03-31] MEDS: Isosorbide Mononitrate 60 MG Tablet PO (21:49)
[2018-03-31 22:21] LABS: Bedside Glucose 188 mg/dL (70-110)
[2018-04-01 04:17] VITALS: O2SAT 94
[2018-04-01] MEDS: Levothyroxine 100 MCG Tablet PO (05:47)
[2018-04-01 07:22] VITALS: BP 162/65; PULSE 66; RESP 16; TEMP 36.9; O2SAT 93
[2018-04-01 07:22] LABS: Bedside Glucose 175 mg/dL (70-110)
[2018-04-01 08:16] VITALS: PULSE 66
[2018-04-01] MEDS: Metoprolol Tartrate 25 MG Tablet 12.5 MG PO ×2 (08:16→22:06)
[2018-04-01] MEDS: Enoxaparin 40 MG/0.4 ML Syringe SC (08:16)
[2018-04-01] MEDS: Lisinopril 20 MG Tablet PO (08:16)
[2018-04-01] MEDS: Cyanocobalamin 500 MCG Tablet PO (08:16)
[2018-04-01] MEDS: Aspirin E.C. 81 MG Tablet PO (08:17)
[2018-04-01] MEDS: Glucerna Shake 120 ML LIQUID PO ×4 (08:17→22:10)
[2018-04-01] MEDS: carBAMazepine 200 MG Tablet 100 MG PO (08:17)
[2018-04-01] MEDS: Insulin Lispro 100 UNIT/ML INSULN.PEN SC ×3 (08:18→22:09)
[2018-04-01] MEDS: NYSTATIN 500,000 UNIT/5 ML UDC 500000 UNIT PO ×4 (08:19→22:05)
[2018-04-01] MEDS: Menthol/Lanolin/Calamine/Znox 113 GM Tube 1 APPLIC TOPICAL ×2 (08:23→22:10)
[2018-04-01] MEDS: Acetaminophen 325 MG Tablet 650 MG PO ×2 (09:53→22:10)
[2018-04-01 11:17] LABS: Bedside Glucose 270 mg/dL (70-110)
--- NOTE | 2018-04-01 11:39 | PCM.PN.NEU ---
Subjective: Her primary complaint today is hypersomnolence which has been present since her stroke. No other complaints. Tolerating therapies. No GI or complaints. - Physical Exam General: - - Somnolent but easily arouses Neurological: Slurred Speech, - - Left hemiparesis, stable Psych/Mental Status: Alert and oriented to time, place, person, mood and affect Vital Signs Temp Pulse Resp BP Pulse Ox 36.9 C 66 16 162/65 H 93 04/01/18 07:22 04/01/18 08:16 04/01/18 07:22 04/01/18 07:22 04/01/18 07:22 Oxygen Delivery Method Room Air Weight: 84.9 kg Body Mass Index (BMI) 36.5 Finger Stick Blood Glucose 134 Intake and Output for Last 24 Hours 03/30/18 03/31/18 04/01/18 23:59 23:59 23:59 Intake Total 120 / 120 610 / 610 240 / 240 Output Total 300 / 300 250 / 250 Balance 120 / 120 310 / 310 -10 / -10 Laboratory Tests Past 24 Hrs 03/31/18 12:35 Carbamazepine 11.2 POC Glucose 04/01/18 04/01/18 03/31/18 11:11 07:14 21:32 POC Glucose 270 H 175 H 188 H 03/31/18 03/31/18 16:05 11:20 POC Glucose 151 H 150 H Current Medications Generic Name Dose Route Start Last Admin Trade Name Freq PRN Reason Stop Dose Admin Acetaminophen 650 mg 03/30/18 18:13 04/01/18 09:53 Tylenol PO 650 mg Q4H PRN PRN Administration PAIN Aspirin 81 mg 03/31/18 08:00 04/01/18 08:17 Ecotrin PO 81 mg DAILY@0800 YANELI Administration Atorvastatin Calcium 80 mg 03/30/18 22:00 03/31/18 21:49 Lipitor PO 80 mg QHS YANELI Administration Bisacodyl 10 mg 03/30/18 17:26 Dulcolax RECTAL .PRN X 1 PRN Constipation Calamine/Phenol 1 applic 03/30/18 22:00 04/01/18 08:23 Calmoseptine Ointment TOPICAL 1 applicatio BID YANELI Administration Protocol Carbamazepine 100 mg 03/31/18 10:00 04/01/18 08:17 Tegretol PO 100 mg DAILY YANELI Administration Carbamazepine 200 mg 03/30/18 22:00 03/31/18 21:47 Tegretol PO 200 mg QHS YANELI Administration Cholecalciferol 1,000 unit 03/30/18 22:00 04/01/18 08:17 Vitamin D PO 1,000 unit BID YANELI Administration Cyanocobalamin 500 mcg 03/31/18 10:00 04/01/18 08:16 Vitamin B12 PO 500 mcg DAILY YANELI Administration Diazepam 5 mg 03/30/18 17:16 Valium PO DAILY PRN PRN ANXIETY Enoxaparin Sodium 40 mg 03/31/18 10:00 04/01/18 08:16 Lovenox SC 40 mg DAILY YANELI Administration Ferrous Sulfate 325 mg 03/31/18 12:00 03/31/18 13:05 Ferrous Sulfate PO 325 mg 1200 YANELI Administration Insulin Glargine 40 units 03/30/18 22:00 03/31/18 19:38 Lantus ([facility]) SC Not Given QHS [facility] Insulin Human Lispro 10 unit 03/31/18 08:00 04/01/18 08:19 Humalog Kwikpen ([facility]) SC Not Given BREAKFAST [facility] Insulin Human Lispro 20 unit 03/31/18 17:00 03/31/18 17:55 Humalog Kwikpen ([facility]) SC Not Given DINNER [facility] Insulin Human Lispro 20 unit 03/31/18 12:00 03/31/18 13:06 Humalog Kwikpen ([facility]) SC Not Given LUNCH [facility] Insulin Human Lispro 0 unit 03/30/18 22:00 04/01/18 08:18 Humalog Kwikpen ([facility]) SC 1 u ACHS [facility] Administration Protocol Isosorbide Mononitrate 60 mg 03/30/18 22:00 03/31/18 21:49 Imdur PO 60 mg QHS [facility] Administration Levothyroxine Sodium 100 mcg 03/31/18 06:00 04/01/18 05:47 Synthroid PO 100 mcg DAILY@0600 YANELI Administration Lisinopril 20 mg 03/31/18 10:00 04/01/18 08:16 Zestril PO 20 mg DAILY YANELI Administration Magnesium Hydroxide 30 ml 03/30/18 17:26 Milk Of Magnesia PO .PRN X 1 PRN Constipation Metoprolol Tartrate 12.5 mg 03/30/18 22:00 04/01/18 08:16 Lopressor (Beta Marino) PO 12.5 mg BID YANELI Administration Nutritional Formula (Lactose Free) 120 ml 03/31/18 18:00 04/01/18 08:17 Glucerna Shake PO 120 ml 4X/DAY YANELI Administration Nystatin 500,000 unit 03/31/18 10:00 04/01/18 08:19 Nystatin PO 500,000 unit 4X/DAY YANELI Administration Senna/Docusate Sodium 2 tablet 03/30/18 22:00 04/01/18 08:22 Senokot-S, Elisa-Colace PO Not Given BID YANELI Medical Necessity - Tobacco Use Smoking Status: Never smoker Assessment/Plan All Active Problems (Last Reviewed 03/31/18 @ 11:23 by Panda Ferreira MD) Stroke (Acute) TIA (transient ischemic attack) (Acute) Debility status post right MCA distribution infarct as well as left MCA distribution infarct. She is status post left ICA CEA on 03/24/18 and was previously functionally independent. Goal is nondenominational of prior level of functional independence. This is complicated by her debility due to her right MCA distribution stroke and smaller left MCA distribution stroke. Plan: Physical therapy for gait and balance Occupational Therapy for ADLs Speech therapy: Currently n.p.o. awaiting reevaluation Hypertension: Continue antihypertensives Stroke status post CEA: Continue aspirin, Plavix, blood pressure control, statin therapy. We will need to verify testing from the [facility] including echocardiogram given that this is a bilateral infarct as well as supposedly a TCD embolic study. Diabetes: Insulin therapy, monitor Accu-Cheks Bowel protocol DVT prophylaxis: Lovenox History of meningioma: Status post gamma knife therapy in 2017, this appears to be stable History of trigeminal neuralgia: On Tegretol 100/200. Will continue but will check Tegretol level. Hypersomnia: This is likely post stroke. This should improve but will check Tegretol level and labs.
[2018-04-01] MEDS: Ferrous Sulfate 325 MG Tablet PO (12:27)
[2018-04-01] MEDS: Insulin Lispro 100 UNIT/ML INSULN.PEN 20 UNIT SC (12:27)
[2018-04-01 14:48] LABS: Mucous, Urine 0 SEEN /hpf (<or=2+); Squamous Epithelial Cells - UA 0 SEEN /hpf (5-10)
[2018-04-01 14:52] LABS: Color, Urine Yellow (Yellow); Glucose, Dipstick 1000 mg/dl (Normal); Ketone-Dipstick 5 mg/dl (Negative); Leukocyte Esterase-Dipstick 500 /ul (Negative); Nitrite-Dipstick Negative (Negative); Occult Blood-Urine 250 /ul (Negative); Protein-Dipstick 100 mg/dl (Negative); Urine Bilirubin Dipstick Negative (Negative); Urine Clarity Cloudy (Clear); Urine Urobilinogen 1 mg/dl (Normal)
[2018-04-01 14:58] LABS: Bacteria 2+ /hpf (None Seen); Red Blood Cells-Urine 5-10 SEEN /hpf (0-5); White Blood Cells >100 SEEN /hpf (0-5)
[2018-04-01 15:25] VITALS: BMI 36.5
[2018-04-01 16:51] LABS: Bedside Glucose 99 mg/dL (70-110)
[2018-04-01 21:56] VITALS: BP 175/82; PULSE 64; RESP 20; TEMP 36.7; O2SAT 96
[2018-04-01] MEDS: Nystatin Powder 15gm Bottle 1 APPLIC TOPICAL (22:05)
[2018-04-01] MEDS: carBAMazepine 200 MG Tablet PO (22:05)
[2018-04-01] MEDS: Senna/Docusate Sodium 1 Tablet 2 TABLET PO (22:05)
[2018-04-01 22:06] VITALS: BP 175/82; PULSE 64
[2018-04-01] MEDS: Atorvastatin Calcium 80 MG Tablet PO (22:07)
[2018-04-01] MEDS: Isosorbide Mononitrate 60 MG Tablet PO (22:08)
[2018-04-01] MEDS: Cephalexin 500 MG Capsule PO (22:08)
[2018-04-01 22:42] LABS: Bedside Glucose 186 mg/dL (70-110)
[2018-04-02 05:00] VITALS: BMI 36.5
[2018-04-02] MEDS: Cephalexin 500 MG Capsule PO ×3 (06:35→20:11)
[2018-04-02] MEDS: Nystatin Powder 15gm Bottle 1 APPLIC TOPICAL ×3 (06:36→20:14)
[2018-04-02] MEDS: Levothyroxine 100 MCG Tablet PO (06:36)
[2018-04-02 06:57] LABS: Bedside Glucose 193 mg/dL (70-110)
[2018-04-02 07:55] VITALS: BP 144/63; PULSE 60; RESP 18; TEMP 36.7; O2SAT 96
[2018-04-02] MEDS: Insulin Lispro 100 UNIT/ML INSULN.PEN SC ×3 (08:05→18:42)
[2018-04-02] MEDS: Enoxaparin 40 MG/0.4 ML Syringe SC (08:05)
[2018-04-02] MEDS: NYSTATIN 500,000 UNIT/5 ML UDC 500000 UNIT PO ×4 (08:05→20:09)
[2018-04-02] MEDS: Menthol/Lanolin/Calamine/Znox 113 GM Tube 1 APPLIC TOPICAL ×2 (08:10→20:14)
[2018-04-02] MEDS: Glucerna Shake 120 ML LIQUID PO ×3 (09:45→20:14)
[2018-04-02] MEDS: Lisinopril 20 MG Tablet PO (09:45)
[2018-04-02] MEDS: Cyanocobalamin 500 MCG Tablet PO (09:45)
[2018-04-02] MEDS: Senna/Docusate Sodium 1 Tablet 2 TABLET PO ×2 (09:45→20:11)
[2018-04-02] MEDS: Aspirin E.C. 81 MG Tablet PO (09:45)
[2018-04-02] MEDS: carBAMazepine 200 MG Tablet 100 MG PO (09:45)
[2018-04-02 09:47] VITALS: PULSE 77
[2018-04-02] MEDS: Metoprolol Tartrate 25 MG Tablet 12.5 MG PO ×2 (09:47→20:09)
[2018-04-02] MEDS: Acetaminophen 325 MG Tablet 650 MG PO ×2 (09:51→20:08)
[2018-04-02 10:38] VITALS: BMI 36.5
[2018-04-02 13:27] LABS: Bedside Glucose 238 mg/dL (70-110)
[2018-04-02] MEDS: Insulin Lispro 100 UNIT/ML INSULN.PEN 20 UNIT SC (14:31)
[2018-04-02 17:57] LABS: Bedside Glucose 163 mg/dL (70-110)
[2018-04-02 19:43] VITALS: BP 145/61; PULSE 59; RESP 18; TEMP 36.6; O2SAT 95
[2018-04-02 20:09] VITALS: BP 145/61; PULSE 59
[2018-04-02] MEDS: Isosorbide Mononitrate 60 MG Tablet PO (20:12)
[2018-04-02] MEDS: carBAMazepine 200 MG Tablet PO (20:12)
[2018-04-02] MEDS: Atorvastatin Calcium 80 MG Tablet PO (20:13)
[2018-04-02 20:57] LABS: Bedside Glucose 164 mg/dL (70-110)
[2018-04-02 23:41] VITALS: BMI 36.5
[2018-04-03] MEDS: Levothyroxine 100 MCG Tablet PO (05:47)
[2018-04-03] MEDS: Nystatin Powder 15gm Bottle 1 APPLIC TOPICAL ×3 (05:47→21:01)
[2018-04-03] MEDS: Cephalexin 500 MG Capsule PO ×3 (05:47→20:52)
[2018-04-03 06:47] LABS: Bedside Glucose 142 mg/dL (70-110)
--- NOTE | 2018-04-03 07:27 | PCM.PN.HOSP ---
Subjective: Feels well today no issues overnight Vitals/I&O's: Vital Signs Temp Pulse Resp BP Pulse Ox 97.9 F 59 L 18 145/61 H 95 04/02/18 19:43 04/02/18 20:09 04/02/18 19:43 04/02/18 20:09 04/02/18 19:43 Oxygen Delivery Method Room Air Weight: 187 lb 2.759 oz Body Mass Index (BMI) 36.5 Finger Stick Blood Glucose 134 Intake and Output for Last 24 Hours 04/01/18 04/02/18 04/03/18 23:59 23:59 23:59 Intake Total 360 / 360 840 / 840 Output Total 250 / 250 Balance 110 / 110 840 / 840 General: Alert, Oriented x3, Cooperative HEENT: Atraumatic, PERRLA, EOMI, Normocephalic Oral: Moist Mucosa Neck: Supple, No JVD, Trachea Midline Lungs: Clear to auscultation, Normal air movement, No rhonchi, No wheeze, No rales Cardiovascular: Regular rate, Regular Rhythm, Normal S1, Normal S2, No murmurs Abdomen: Soft, Non Tender, Non-Distended, No Hepato-splenomegaly, Obese Extremities: No edema, Capillary Refill Less than 3 Seconds Skin: No rashes, No breakdown Neurological: - - Left arm is flaccid as well as severe weakness in the left lower extremity with a left facial droop Psych/Mental Status: Normal Affect, Appropriate Microbiology Past 72 Hours 04/01/18 14:30 Urine, Catheterized Urine Culture - Preliminary Presumptive E. coli Laboratory Results 04/02/18 13:22: POC Glucose 238 H 04/02/18 17:48: POC Glucose 163 H 04/02/18 20:53: POC Glucose 164 H 04/03/18 06:41: POC Glucose 142 H Current Medications Acetaminophen (Tylenol) 650 mg PO Q4H PRN PRN PRN Reason: PAIN Last Admin: 04/02/18 20:08 Dose: 650 mg Aspirin (Ecotrin) 81 mg PO DAILY@0800 [facility] Last Admin: 04/02/18 09:45 Dose: 81 mg Atorvastatin Calcium (Lipitor) 80 mg PO QHS [facility] Last Admin: 04/02/18 20:13 Dose: 80 mg Bisacodyl (Dulcolax) 10 mg RECTAL .PRN X 1 PRN PRN Reason: Constipation Calamine/Phenol (Calmoseptine Ointment) 1 applic TOPICAL BID [facility]; Protocol Last Admin: 04/02/18 20:14 Dose: 1 applicatio Carbamazepine (Tegretol) 100 mg PO DAILY [facility] Last Admin: 04/02/18 09:45 Dose: 100 mg Carbamazepine (Tegretol) 200 mg PO QHS [facility] Last Admin: 04/02/18 20:12 Dose: 200 mg Cephalexin (Keflex) 500 mg PO Q8 [facility] Stop: 04/05/18 14:01 Last Admin: 04/03/18 05:47 Dose: 500 mg Cholecalciferol (Vitamin D) 1,000 unit PO BID [facility] Last Admin: 04/02/18 20:11 Dose: 1,000 unit Cyanocobalamin (Vitamin B12) 500 mcg PO DAILY [facility] Last Admin: 04/02/18 09:45 Dose: 500 mcg Diazepam (Valium) 5 mg PO DAILY PRN PRN PRN Reason: ANXIETY Enoxaparin Sodium (Lovenox) 40 mg SC DAILY [facility] Last Admin: 04/02/18 08:05 Dose: 40 mg Ferrous Sulfate (Ferrous Sulfate) 325 mg PO 1200 [facility] Last Admin: 04/02/18 13:24 Dose: Not Given Insulin Glargine (Lantus (Bkc)) 40 units SC QHS [facility] Last Admin: 04/02/18 20:12 Dose: Not Given Insulin Human Lispro (Humalog Kwikpen (Bkc)) 10 unit SC BREAKFAST [facility] Last Admin: 04/02/18 10:36 Dose: Not Given Insulin Human Lispro (Humalog Kwikpen (Bkc)) 20 unit SC DINNER [facility] Last Admin: 04/02/18 18:40 Dose: Not Given Insulin Human Lispro (Humalog Kwikpen (Bkc)) 20 unit SC LUNCH [facility] Last Admin: 04/02/18 14:31 Dose: 20 u Insulin Human Lispro (Humalog Kwikpen (Bkc)) 0 unit SC ACHS [facility]; Protocol Last Admin: 04/02/18 19:58 Dose: Not Given Isosorbide Mononitrate (Imdur) 60 mg PO QHS [facility] Last Admin: 04/02/18 20:12 Dose: 60 mg Levothyroxine Sodium (Synthroid) 100 mcg PO DAILY@0600 [facility] Last Admin: 04/03/18 05:47 Dose: 100 mcg Lisinopril (Zestril) 20 mg PO DAILY [facility] Last Admin: 04/02/18 09:45 Dose: 20 mg Magnesium Hydroxide (Milk Of Magnesia) 30 ml PO .PRN X 1 PRN PRN Reason: Constipation Metoprolol Tartrate (Lopressor (Beta Marino)) 12.5 mg PO BID [facility] Last Admin: 04/02/18 20:09 Dose: 12.5 mg Nutritional Formula (Lactose Free) (Glucerna Shake) 120 ml PO 4X/DAY [facility] Last Admin: 04/02/18 20:14 Dose: 120 ml Nystatin (Nystatin) 500,000 unit PO 4X/DAY [facility] Last Admin: 04/02/18 20:09 Dose: 500,000 unit Nystatin (Mycostatin Powder) 1 applic TOPICAL TID [facility]; Protocol Last Admin: 04/03/18 05:47 Dose: 1 applicatio Senna/Docusate Sodium (Senokot-S, Elisa-Colace) 2 tablet PO BID [facility] Last Admin: 04/02/18 20:11 Dose: 2 tablet Medical Necessity - Tobacco Use Smoking Status: Never smoker Assessment/Plan All Active Problems (Last Reviewed 03/31/18 @ 11:23 by Panda Ferreira MD) Stroke (Acute) TIA (transient ischemic attack) (Acute) 1. Debility status post recent right occipital infarct leading to left-sided weakness -Continue with PT/OT as well as aspirin/Plavix and statin 2. Left carotid endarterectomy 03/24/2018 -Incision is clean dry and intact appears stable at the moment 3. HTN/CAD status post PCI/HLD -Continue with her home medications of isosorbide, lisinopril, metoprolol -Continue with statin and aspirin 4. Hypothyroidism -Stable -Continue with Synthroid 5. DM 2/CKD 3 -Continue to monitor with Accu-Cheks -Continue with home insulin, and sliding scale insulin -Creatinine stable below baseline 6. UTI -Continue with Keflex, urine culture with presumptive E. coli. -Pansensitive DVT: Lovenox Code Visit Inpatient E&M: 45460 Subs Hosp L2
--- NOTE | 2018-04-03 07:33 | PN_ITS ---
Subjective: Feels well today no issues overnight Vitals/I&O's: Vital Signs Temp Pulse Resp BP Pulse Ox 97.9 F 59 L 18 145/61 H 95 04/02/18 19:43 04/02/18 20:09 04/02/18 19:43 04/02/18 20:09 04/02/18 19:43 Oxygen Delivery Method Room Air Weight: 187 lb 2.759 oz Body Mass Index (BMI) 36.5 Finger Stick Blood Glucose 134 Intake and Output for Last 24 Hours 04/01/18 04/02/18 04/03/18 23:59 23:59 23:59 Intake Total 360 / 360 840 / 840 Output Total 250 / 250 Balance 110 / 110 840 / 840 General: Alert, Oriented x3, Cooperative HEENT: Atraumatic, PERRLA, EOMI, Normocephalic Oral: Moist Mucosa Neck: Supple, No JVD, Trachea Midline Lungs: Clear to auscultation, Normal air movement, No rhonchi, No wheeze, No rales Cardiovascular: Regular rate, Regular Rhythm, Normal S1, Normal S2, No murmurs Abdomen: Soft, Non Tender, Non-Distended, No Hepato-splenomegaly, Obese Extremities: No edema, Capillary Refill Less than 3 Seconds Skin: No rashes, No breakdown Neurological: - - Left arm is flaccid as well as severe weakness in the left lower extremity with a left facial droop Psych/Mental Status: Normal Affect, Appropriate Microbiology Past 72 Hours 04/01/18 14:30 Urine, Catheterized Urine Culture - Preliminary Presumptive E. coli Laboratory Results 04/02/18 13:22: POC Glucose 238 H 04/02/18 17:48: POC Glucose 163 H 04/02/18 20:53: POC Glucose 164 H 04/03/18 06:41: POC Glucose 142 H Current Medications Acetaminophen (Tylenol) 650 mg PO Q4H PRN PRN PRN Reason: PAIN Last Admin: 04/02/18 20:08 Dose: 650 mg Aspirin (Ecotrin) 81 mg PO DAILY@0800 [facility] Last Admin: 04/02/18 09:45 Dose: 81 mg Atorvastatin Calcium (Lipitor) 80 mg PO QHS [facility] Last Admin: 04/02/18 20:13 Dose: 80 mg Bisacodyl (Dulcolax) 10 mg RECTAL .PRN X 1 PRN PRN Reason: Constipation Calamine/Phenol (Calmoseptine Ointment) 1 applic TOPICAL BID [facility]; Protocol Last Admin: 04/02/18 20:14 Dose: 1 applicatio Carbamazepine (Tegretol) 100 mg PO DAILY [facility] Last Admin: 04/02/18 09:45 Dose: 100 mg Carbamazepine (Tegretol) 200 mg PO QHS [facility] Last Admin: 04/02/18 20:12 Dose: 200 mg Cephalexin (Keflex) 500 mg PO Q8 [facility] Stop: 04/05/18 14:01 Last Admin: 04/03/18 05:47 Dose: 500 mg Cholecalciferol (Vitamin D) 1,000 unit PO BID [facility] Last Admin: 04/02/18 20:11 Dose: 1,000 unit Cyanocobalamin (Vitamin B12) 500 mcg PO DAILY [facility] Last Admin: 04/02/18 09:45 Dose: 500 mcg Diazepam (Valium) 5 mg PO DAILY PRN PRN PRN Reason: ANXIETY Enoxaparin Sodium (Lovenox) 40 mg SC DAILY [facility] Last Admin: 04/02/18 08:05 Dose: 40 mg Ferrous Sulfate (Ferrous Sulfate) 325 mg PO 1200 [facility] Last Admin: 04/02/18 13:24 Dose: Not Given Insulin Glargine (Lantus (Bkc)) 40 units SC QHS [facility] Last Admin: 04/02/18 20:12 Dose: Not Given Insulin Human Lispro (Humalog Kwikpen (Bkc)) 10 unit SC BREAKFAST [facility] Last Admin: 04/02/18 10:36 Dose: Not Given Insulin Human Lispro (Humalog Kwikpen (Bkc)) 20 unit SC DINNER [facility] Last Admin: 04/02/18 18:40 Dose: Not Given Insulin Human Lispro (Humalog Kwikpen (Bkc)) 20 unit SC LUNCH [facility] Last Admin: 04/02/18 14:31 Dose: 20 u Insulin Human Lispro (Humalog Kwikpen (Bkc)) 0 unit SC ACHS [facility]; Protocol Last Admin: 04/02/18 19:58 Dose: Not Given Isosorbide Mononitrate (Imdur) 60 mg PO QHS [facility] Last Admin: 04/02/18 20:12 Dose: 60 mg Levothyroxine Sodium (Synthroid) 100 mcg PO DAILY@0600 [facility] Last Admin: 04/03/18 05:47 Dose: 100 mcg Lisinopril (Zestril) 20 mg PO DAILY [facility] Last Admin: 04/02/18 09:45 Dose: 20 mg Magnesium Hydroxide (Milk Of Magnesia) 30 ml PO .PRN X 1 PRN PRN Reason: Constipation Metoprolol Tartrate (Lopressor (Beta Marino)) 12.5 mg PO BID [facility] Last Admin: 04/02/18 20:09 Dose: 12.5 mg Nutritional Formula (Lactose Free) (Glucerna Shake) 120 ml PO 4X/DAY [facility] Last Admin: 04/02/18 20:14 Dose: 120 ml Nystatin (Nystatin) 500,000 unit PO 4X/DAY [facility] Last Admin: 04/02/18 20:09 Dose: 500,000 unit Nystatin (Mycostatin Powder) 1 applic TOPICAL TID [facility]; Protocol Last Admin: 04/03/18 05:47 Dose: 1 applicatio Senna/Docusate Sodium (Senokot-S, Elisa-Colace) 2 tablet PO BID [facility] Last Admin: 04/02/18 20:11 Dose: 2 tablet Medical Necessity - Tobacco Use Smoking Status: Never smoker Assessment/Plan All Active Problems (Last Reviewed 03/31/18 @ 11:23 by Panda Ferreira MD) Stroke (Acute) TIA (transient ischemic attack) (Acute) 1. Debility status post recent right occipital infarct leading to left-sided weakness -Continue with PT/OT as well as aspirin/Plavix and statin 2. Left carotid endarterectomy 03/24/2018 -Incision is clean dry and intact appears stable at the moment 3. HTN/CAD status post PCI/HLD -Continue with her home medications of isosorbide, lisinopril, metoprolol -Continue with statin and aspirin 4. Hypothyroidism -Stable -Continue with Synthroid 5. DM 2/CKD 3 -Continue to monitor with Accu-Cheks -Continue with home insulin, and sliding scale insulin -Creatinine stable below baseline 6. UTI -Continue with Keflex, urine culture with presumptive E. coli. -Pansensitive DVT: Lovenox Code Visit Inpatient E&M: 57136 Subs Hosp L2
[2018-04-03 07:43] VITALS: BP 142/61; PULSE 56; RESP 16; TEMP 36.8; O2SAT 100
[2018-04-03 08:11] VITALS: PULSE 64
[2018-04-03] MEDS: NYSTATIN 500,000 UNIT/5 ML UDC 500000 UNIT PO ×4 (08:11→20:51)
[2018-04-03] MEDS: Senna/Docusate Sodium 1 Tablet 2 TABLET PO (08:11)
[2018-04-03] MEDS: Enoxaparin 40 MG/0.4 ML Syringe SC (08:11)
[2018-04-03] MEDS: Metoprolol Tartrate 25 MG Tablet 12.5 MG PO (08:11)
[2018-04-03] MEDS: Cyanocobalamin 500 MCG Tablet PO (08:12)
[2018-04-03] MEDS: Aspirin E.C. 81 MG Tablet PO (08:12)
[2018-04-03] MEDS: carBAMazepine 200 MG Tablet 100 MG PO (08:12)
[2018-04-03] MEDS: Lisinopril 20 MG Tablet PO (08:12)
[2018-04-03] MEDS: Glucerna Shake 120 ML LIQUID PO ×4 (08:13→21:00)
[2018-04-03] MEDS: Menthol/Lanolin/Calamine/Znox 113 GM Tube 1 APPLIC TOPICAL ×2 (08:16→20:59)
[2018-04-03 10:51] VITALS: BMI 36.5
--- NOTE | 2018-04-03 12:00 | NURSING ---
Dr. Garza aware of patients continued poor appetite and insulin orders. Lantus decreased, continue sliding scale, hold routine scheduled insulin if appetite is poor for that meal. Patient aware.
[2018-04-03 12:07] LABS: Bedside Glucose 181 mg/dL (70-110)
[2018-04-03] MEDS: Ferrous Sulfate 325 MG Tablet PO (12:34)
[2018-04-03] MEDS: Insulin Lispro 100 UNIT/ML INSULN.PEN SC ×2 (16:25→20:54)
[2018-04-03 16:47] LABS: Bedside Glucose 242 mg/dL (70-110)
[2018-04-03 20:45] VITALS: BP 165/76; PULSE 57; RESP 16; TEMP 36.6; O2SAT 95
[2018-04-03] MEDS: Atorvastatin Calcium 80 MG Tablet PO (20:51)
[2018-04-03] MEDS: carBAMazepine 200 MG Tablet PO (20:51)
[2018-04-03] MEDS: Isosorbide Mononitrate 60 MG Tablet PO (20:52)
[2018-04-03 21:22] LABS: Bedside Glucose 251 mg/dL (70-110)
[2018-04-04 00:07] VITALS: PULSE 58
[2018-04-04] MEDS: Metoprolol Tartrate 25 MG Tablet 12.5 MG PO ×3 (00:07→20:58)
--- NOTE | 2018-04-04 00:12 | NURSING ---
Hospitalist paged three times per gridcap machine operator - to inform that HR was 57 with Lopresser due. Orders received to give Lopresser. New Urine culture results also reported and that pt was on Keflex.
[2018-04-04 00:14] VITALS: BMI 36.5
[2018-04-04] MEDS: Nystatin Powder 15gm Bottle 1 APPLIC TOPICAL ×3 (05:47→20:53)
[2018-04-04] MEDS: Levothyroxine 100 MCG Tablet PO (05:47)
[2018-04-04] MEDS: Cephalexin 500 MG Capsule PO ×3 (05:47→20:53)
[2018-04-04 07:11] LABS: Bedside Glucose 162 mg/dL (70-110)
[2018-04-04 07:48] VITALS: BP 121/57; PULSE 59; RESP 16; TEMP 36.6; O2SAT 96
[2018-04-04] MEDS: Glucerna Shake 120 ML LIQUID PO ×4 (08:44→20:52)
[2018-04-04 08:45] VITALS: BP 121/57; PULSE 59
[2018-04-04] MEDS: Aspirin E.C. 81 MG Tablet PO (08:45)
[2018-04-04] MEDS: Cyanocobalamin 500 MCG Tablet PO (08:46)
[2018-04-04] MEDS: carBAMazepine 200 MG Tablet 100 MG PO (08:46)
[2018-04-04] MEDS: Insulin Lispro 100 UNIT/ML INSULN.PEN 10 UNIT SC (08:47)
[2018-04-04] MEDS: NYSTATIN 500,000 UNIT/5 ML UDC 500000 UNIT PO ×3 (08:47→17:47)
[2018-04-04] MEDS: Enoxaparin 40 MG/0.4 ML Syringe SC (08:47)
[2018-04-04] MEDS: Menthol/Lanolin/Calamine/Znox 113 GM Tube 1 APPLIC TOPICAL ×2 (08:48→20:57)
[2018-04-04] MEDS: Insulin Lispro 100 UNIT/ML INSULN.PEN SC (08:48)
[2018-04-04] MEDS: Lisinopril 20 MG Tablet PO (08:49)
--- NOTE | 2018-04-04 10:38 | PCM.PN.NEU ---
Subjective: Staffed in team meeting today. Her , son and sister are all present. Questions were answered. Her left upper extremity is improving. All team members have noted fatigue but today this appears to be improved. Medicare days are pending. Family notes that she has ongoing pain issues. No other complaints. Questions are answered. Objective: Is awake and alert. Right gaze preference and left neglect Left field cut Moving her left upper extremity now - Physical Exam Psych/Mental Status: Normal Affect, Alert and oriented to time, place, person, mood and affect Vital Signs Temp Pulse Resp BP Pulse Ox 36.6 C 59 L 16 121/57 H 96 04/04/18 07:48 04/04/18 08:45 04/04/18 07:48 04/04/18 08:45 04/04/18 07:48 Oxygen Delivery Method Room Air Weight: 84.9 kg Body Mass Index (BMI) 36.5 Finger Stick Blood Glucose 134 Intake and Output for Last 24 Hours 04/02/18 04/03/18 04/04/18 23:59 23:59 23:59 Intake Total 840 / 840 800 / 800 240 / 240 Output Total 500 / 500 Balance 840 / 840 300 / 300 240 / 240 Microbiology Past 72 Hours 04/01/18 14:30 Urine Culture - Final Urine, Catheterized Presumptive E. coli POC Glucose 04/04/18 04/03/18 04/03/18 07:02 20:47 16:09 POC Glucose 162 H 251 H 242 H 04/03/18 12:03 POC Glucose 181 H Current Medications Generic Name Dose Route Start Last Admin Trade Name Freq PRN Reason Stop Dose Admin Acetaminophen 650 mg 03/30/18 18:13 04/02/18 20:08 Tylenol PO 650 mg Q4H PRN PRN Administration PAIN Aspirin 81 mg 03/31/18 08:00 04/04/18 08:45 Ecotrin PO 81 mg DAILY@0800 [facility] Administration Atorvastatin Calcium 80 mg 03/30/18 22:00 04/03/18 20:51 Lipitor PO 80 mg QHS [facility] Administration Bisacodyl 10 mg 03/30/18 17:26 Dulcolax RECTAL .PRN X 1 PRN Constipation Calamine/Phenol 1 applic 03/30/18 22:00 04/04/18 08:48 Calmoseptine Ointment TOPICAL 1 applicatio BID [facility] Administration Protocol Carbamazepine 100 mg 02/07/19 10:00 04/04/18 08:46 Tegretol PO 100 mg DAILY [facility] Administration Carbamazepine 200 mg 03/30/18 22:00 04/03/18 20:51 Tegretol PO 200 mg QHS [facility] Administration Cephalexin 500 mg 04/01/18 22:00 04/04/18 05:47 Keflex PO 04/05/18 14:01 500 mg Q8 [facility] Administration Cholecalciferol 1,000 unit 03/30/18 22:00 04/04/18 08:45 Vitamin D PO 1,000 unit BID [facility] Administration Cyanocobalamin 500 mcg 03/31/18 10:00 04/04/18 08:46 Vitamin B12 PO 500 mcg DAILY [facility] Administration Diazepam 5 mg 03/30/18 17:16 Valium PO DAILY PRN PRN ANXIETY Enoxaparin Sodium 40 mg 03/31/18 10:00 04/04/18 08:47 Lovenox SC 40 mg DAILY [facility] Administration Ferrous Sulfate 325 mg 03/31/18 12:00 04/03/18 12:34 Ferrous Sulfate PO 325 mg 1200 [facility] Administration Insulin Glargine 20 units 04/03/18 22:00 04/03/18 20:56 Lantus (c) SC 20 u QHS [facility] Administration Insulin Human Lispro 10 unit 04/04/18 08:00 04/04/18 08:47 Humalog Kwikpen ([facility]) SC 10 units BREAKFAST [facility] Administration Insulin Human Lispro 20 unit 04/03/18 17:00 04/03/18 18:05 Humalog Kwikpen ([facility]) SC Not Given DINNER [facility] Insulin Human Lispro 20 unit 04/04/18 12:00 Humalog Kwikpen (Bkc) SC LUNCH [facility] Insulin Human Lispro 0 unit 04/03/18 22:00 04/04/18 08:48 Humalog Kwikpen ([facility]) SC 1 u ACHS [facility] Administration Protocol Isosorbide Mononitrate 60 mg 03/30/18 22:00 04/03/18 20:52 Imdur PO 60 mg QHS [facility] Administration Levothyroxine Sodium 100 mcg 03/31/18 06:00 04/04/18 05:47 Synthroid PO 100 mcg DAILY@0600 [facility] Administration Lisinopril 20 mg 03/31/18 10:00 04/04/18 08:49 Zestril PO 20 mg DAILY [facility] Administration Magnesium Hydroxide 30 ml 03/30/18 17:26 Milk Of Magnesia PO .PRN X 1 PRN Constipation Metoprolol Tartrate 12.5 mg 03/30/18 22:00 04/04/18 08:45 Lopressor (Beta Marino) PO 12.5 mg BID [facility] Administration Nutritional Formula (Lactose Free) 120 ml 03/31/18 18:00 04/04/18 08:44 Glucerna Shake PO 120 ml 4X/DAY [facility] Administration Nystatin 500,000 unit 03/31/18 10:00 04/04/18 08:47 Nystatin PO 500,000 unit 4X/DAY [facility] Administration Nystatin 1 applic 04/01/18 22:00 04/04/18 05:47 Mycostatin Powder TOPICAL 1 applicatio TID [facility] Administration Protocol Senna/Docusate Sodium 2 tablet 03/30/18 22:00 04/04/18 08:42 Senokot-S, Elisa-Colace PO Not Given BID [facility] Medical Necessity - Tobacco Use Smoking Status: Never smoker Assessment/Plan All Active Problems (Last Reviewed 03/31/18 @ 11:23 by Panda Ferreira MD) Stroke (Acute) TIA (transient ischemic attack) (Acute) Debility status post right MCA distribution infarct as well as left MCA distribution infarct. She is status post left ICA CEA on 03/24/18 and was previously functionally independent. Goal is pentecostal of prior level of functional independence. This is complicated by her debility due to her right MCA distribution stroke and smaller left MCA distribution stroke. Plan: Physical therapy for gait and balance Occupational Therapy for ADLs Speech therapy: Currently n.p.o. awaiting reevaluation. 04/04: Now on mechanical soft Hypertension: Continue antihypertensives. Blood pressure is actually been somewhat low will hold her Coreg if her systolic is less than 120 Stroke status post CEA: Continue aspirin, Plavix, blood pressure control, statin therapy. We will need to verify testing from the [facility] including echocardiogram given that this is a bilateral infarct as well as supposedly a TCD embolic study. Diabetes: Insulin therapy, monitor Accu-Cheks Bowel protocol DVT prophylaxis: Lovenox History of meningioma: Status post gamma knife therapy in 2017, this appears to be stable History of trigeminal neuralgia: On Tegretol 100/200. Will continue but will check Tegretol level. Hypersomnia: This is likely post stroke. This should improve but will check Tegretol level and labs.
[2018-04-04 12:07] LABS: Bedside Glucose 135 mg/dL (70-110)
[2018-04-04] MEDS: Ferrous Sulfate 325 MG Tablet PO (12:47)
[2018-04-04] MEDS: Insulin Lispro 100 UNIT/ML INSULN.PEN 20 UNIT SC (12:50)
--- NOTE | 2018-04-04 13:53 | CASEMGMT ---
Team meeting held in pt room with pt, spouse, son and pt sister in attendance. Pt is participating in PT/OT/ST and has been requiring assist of two for some functional abilities. Pt has been approved for 23 days with d/c from inpt rehab on 04/21/18. Will continue with treatment plan and reteam next week. SW met with pt and family after team meeting to discuss termite treater plans. Pt clearly stating she is planning to d/c home with her spouse. Family stating that pt spouse is able to assist some but will not be able to provide total care to pt. Reviewed discharge options including home with home health services, private duty aids and SNF placement after Inpt rehab for continued therapy and rehabilitation. List of area SNF's given to family. SW will continue to follow for support and d/c planning. HAZEL Lozano
[2018-04-04 17:00] VITALS: BMI 36.5
--- NOTE | 2018-04-04 17:01 | CHAPLAIN ---
Type of Pastoral Visit _x_ Initial Visit ___ Follow-up Visit ___ On-call Visit ___ General Patient Visit ___ Spiritual Assessment ___ Family Conference ___ Bereavement ___ Rapid Response ___ Code Blue ___ Other (describe below) Pastoral Care Referral From _x__ Patient ___ Family ___ Nurse ___ Physician ___ Pressure Tester ___ Biomass Power Plant Manager ___ Other (describe below) Sacrament/Intervention _x__ Active listening ___ Anointing ___ Yarsani ___ Bereavement ___ Communion ___ Shirlene exploration ___ _x__ Life review _x__ Prayer ___ Reconciliation ___ Sacrament of Sick _x__ Supportive presence ___ Wedding ___ Other (describe below) Pastoral Comments
[2018-04-04 17:26] LABS: Bedside Glucose 146 mg/dL (70-110)
[2018-04-04 20:36] VITALS: BP 174/62; PULSE 66; RESP 18; TEMP 36.9; O2SAT 96
[2018-04-04] MEDS: Isosorbide Mononitrate 60 MG Tablet PO (20:52)
[2018-04-04] MEDS: carBAMazepine 200 MG Tablet PO (20:52)
[2018-04-04] MEDS: Atorvastatin Calcium 80 MG Tablet PO (20:52)
[2018-04-04] MEDS: Senna/Docusate Sodium 1 Tablet 2 TABLET PO (20:53)
[2018-04-04 20:58] VITALS: BP 174/62; PULSE 66
[2018-04-04 22:29] LABS: Bedside Glucose 148 mg/dL (70-110)
[2018-04-04 23:52] VITALS: BMI 36.5
[2018-04-05] MEDS: Cephalexin 500 MG Capsule PO ×2 (06:14→14:57)
[2018-04-05] MEDS: Levothyroxine 100 MCG Tablet PO (06:14)
[2018-04-05] MEDS: Nystatin Powder 15gm Bottle 1 APPLIC TOPICAL ×3 (06:14→21:02)
[2018-04-05 07:26] LABS: Bedside Glucose 106 mg/dL (70-110)
[2018-04-05 08:20] VITALS: BP 160/78; PULSE 66; RESP 16; TEMP 36.6; O2SAT 98
[2018-04-05 08:27] VITALS: PULSE 66
[2018-04-05] MEDS: Metoprolol Tartrate 25 MG Tablet 12.5 MG PO ×2 (08:27→21:00)
[2018-04-05] MEDS: Insulin Lispro 100 UNIT/ML INSULN.PEN 10 UNIT SC (08:27)
[2018-04-05] MEDS: Enoxaparin 40 MG/0.4 ML Syringe SC (08:28)
[2018-04-05] MEDS: NYSTATIN 500,000 UNIT/5 ML UDC 500000 UNIT PO (08:29)
[2018-04-05] MEDS: Senna/Docusate Sodium 1 Tablet 2 TABLET PO ×2 (08:29→21:03)
[2018-04-05] MEDS: Glucerna Shake 120 ML LIQUID PO ×4 (08:29→20:54)
[2018-04-05] MEDS: Cyanocobalamin 500 MCG Tablet PO (08:30)
[2018-04-05] MEDS: carBAMazepine 200 MG Tablet 100 MG PO (08:30)
[2018-04-05] MEDS: Lisinopril 20 MG Tablet PO (08:30)
[2018-04-05] MEDS: Aspirin E.C. 81 MG Tablet PO (08:53)
[2018-04-05] MEDS: Menthol/Lanolin/Calamine/Znox 113 GM Tube 1 APPLIC TOPICAL ×2 (08:54→20:35)
--- NOTE | 2018-04-05 11:21 | PN.NEURO_ITS ---
Subjective: New complaints. Continues to note improvement in her left upper extremity - Physical Exam General: Alert, Oriented x3, Cooperative, No apparent distress HEENT: [place] Neurological: - - Continues to exhibit a left field cut but she attends to the left environment better and has improved movement of her left upper extremity. Vital Signs Temp Pulse Resp BP Pulse Ox 36.6 C 66 16 160/78 H 98 04/05/18 08:20 04/05/18 08:27 04/05/18 08:20 04/05/18 08:20 04/05/18 08:20 Oxygen Delivery Method Room Air Weight: 84.9 kg Body Mass Index (BMI) 36.5 Finger Stick Blood Glucose 134 Intake and Output for Last 24 Hours 04/03/18 04/04/18 04/05/18 23:59 23:59 23:59 Intake Total 800 / 800 660 / 660 120 / 120 Output Total 500 / 500 Balance 300 / 300 660 / 660 120 / 120 Microbiology Past 72 Hours 04/01/18 14:30 Urine Culture - Final Urine, Catheterized Presumptive E. coli POC Glucose 04/05/18 04/04/18 04/04/18 06:18 20:50 17:04 POC Glucose 106 148 H 146 H 04/04/18 11:50 POC Glucose 135 H Medical Necessity - Tobacco Use Smoking Status: Never smoker Assessment/Plan All Active Problems (Last Reviewed 03/31/18 @ 11:23 by Panda Ferreira MD) Stroke (Acute) TIA (transient ischemic attack) (Acute) Debility status post right MCA distribution infarct as well as left MCA distribution infarct. She is status post left ICA CEA on 03/24/18 and was previously functionally independent. Goal is roman catholic of prior level of functional independence. This is complicated by her debility due to her right MCA distribution stroke and smaller left MCA distribution stroke. Plan: Physical therapy for gait and balance Occupational Therapy for ADLs Speech therapy: Currently n.p.o. awaiting reevaluation. 04/04: Now on mechanical soft Hypertension: Continue antihypertensives. Blood pressure is actually been somewhat low will hold her Coreg if her systolic is less than 120 Stroke status post CEA: Continue aspirin, Plavix, blood pressure control, statin therapy. We will need to verify testing from the [facility] including echocardiogram given that this is a bilateral infarct as well as supposedly a TCD embolic study. Diabetes: Insulin therapy, monitor Accu-Cheks Bowel protocol DVT prophylaxis: Lovenox History of meningioma: Status post gamma knife therapy in 2017, this appears to be stable History of trigeminal neuralgia: On Tegretol 100/200. Will continue but will check Tegretol level. Hypersomnia: This is likely post stroke. This should improve but will check Tegretol level and labs.
[2018-04-05 11:51] LABS: Bedside Glucose 209 mg/dL (70-110)
[2018-04-05] MEDS: Insulin Lispro 100 UNIT/ML INSULN.PEN SC ×2 (12:14→20:55)
[2018-04-05] MEDS: Ferrous Sulfate 325 MG Tablet PO (12:14)
[2018-04-05] MEDS: Insulin Lispro 100 UNIT/ML INSULN.PEN 20 UNIT SC (12:15)
[2018-04-05 12:59] VITALS: BMI 36.5
[2018-04-05] MEDS: Acetaminophen 325 MG Tablet 650 MG PO (15:50)
[2018-04-05 16:41] LABS: Bedside Glucose 123 mg/dL (70-110)
[2018-04-05 19:40] VITALS: BP 154/82; PULSE 65; RESP 17; TEMP 36.7; O2SAT 97
[2018-04-05] MEDS: Isosorbide Mononitrate 60 MG Tablet PO (20:59)
[2018-04-05 21:00] VITALS: PULSE 68
[2018-04-05] MEDS: Atorvastatin Calcium 80 MG Tablet PO (21:02)
[2018-04-05] MEDS: carBAMazepine 200 MG Tablet PO (21:03)
[2018-04-05 21:36] LABS: Bedside Glucose 195 mg/dL (70-110)
[2018-04-05 22:00] VITALS: PULSE 65; BMI 36.5
[2018-04-06] MEDS: Acetaminophen 325 MG Tablet 650 MG PO ×3 (04:19→21:53)
[2018-04-06] MEDS: Nystatin Powder 15gm Bottle 1 APPLIC TOPICAL ×3 (06:46→21:32)
[2018-04-06] MEDS: Levothyroxine 100 MCG Tablet PO (06:46)
[2018-04-06 07:00] VITALS: BP 150/76; PULSE 68; RESP 17; TEMP 36.6; O2SAT 96
[2018-04-06 07:06] LABS: Bedside Glucose 118 mg/dL (70-110)
--- NOTE | 2018-04-06 07:30 | NURSING ---
Patient yelling out from bed and upon entering room patient had her legs hanging over bed edge. Patient reported she had to go to the bathroom really bad. This nurse assisted patient to edge of bed after encouragement given for patient to assist this nurse but patient refused and was resistive to helping. Patient assisted x 2 to toilet, difficult transferring stand pivot. Max assist x 2.
[2018-04-06 08:33] VITALS: PULSE 62
[2018-04-06] MEDS: Metoprolol Tartrate 25 MG Tablet 12.5 MG PO ×2 (08:33→21:32)
[2018-04-06] MEDS: Cyanocobalamin 500 MCG Tablet PO (08:35)
[2018-04-06] MEDS: Aspirin E.C. 81 MG Tablet PO (08:35)
[2018-04-06] MEDS: Enoxaparin 40 MG/0.4 ML Syringe SC (08:36)
[2018-04-06] MEDS: carBAMazepine 200 MG Tablet 100 MG PO (08:36)
[2018-04-06] MEDS: Insulin Lispro 100 UNIT/ML INSULN.PEN 10 UNIT SC (08:37)
[2018-04-06] MEDS: Lisinopril 20 MG Tablet PO (08:38)
[2018-04-06] MEDS: Menthol/Lanolin/Calamine/Znox 113 GM Tube 1 APPLIC TOPICAL ×2 (08:44→21:54)
[2018-04-06 11:45] LABS: Bedside Glucose 236 mg/dL (70-110)
[2018-04-06] MEDS: Ferrous Sulfate 325 MG Tablet PO (12:18)
[2018-04-06] MEDS: Insulin Lispro 100 UNIT/ML INSULN.PEN SC (12:20)
[2018-04-06] MEDS: Insulin Lispro 100 UNIT/ML INSULN.PEN 20 UNIT SC (12:20)
[2018-04-06 14:48] VITALS: BMI 36.5
--- NOTE | 2018-04-06 15:00 | PCM.PN.HOSP ---
Subjective: Patient seen and examined. She has no complaints and feels well. Review of systems otherwise negative. Blood sugars noted to be poorly controlled. Review, patient was on 40 units of Lantus but had not been eating very well and so this was reduced to 20 units. She is also on a low-dose sliding scale. Blood sugars have been in the 200s. Vitals/I&O's: Vital Signs Temp Pulse Resp BP Pulse Ox 97.8 F 62 17 150/76 H 96 04/06/18 07:00 04/06/18 08:33 04/06/18 07:00 04/06/18 07:00 04/06/18 07:00 Oxygen Delivery Method Room Air Weight: 187 lb 2.759 oz Body Mass Index (BMI) 36.5 Finger Stick Blood Glucose 134 Intake and Output for Last 24 Hours 04/04/18 04/05/18 04/06/18 23:59 23:59 23:59 Intake Total 660 / 660 1020 / 1020 1100 / 1100 Output Total 700 / 700 1100 / 1100 Balance 660 / 660 320 / 320 0 / 0 General: Alert, Oriented x3, Cooperative, No apparent distress HEENT: Atraumatic, PERRLA, EOMI, Normocephalic Oral: Moist Mucosa Neck: Supple, No JVD, Negative Carotid Bruits Lungs: Clear to auscultation, Normal air movement, No rhonchi, No rales Cardiovascular: Regular rate, Regular Rhythm, Normal S1, Normal S2, No murmurs Abdomen: Bowel Sounds Present, Soft, Non Tender, Non-Distended, No Hepato-splenomegaly Extremities: No clubbing, No cyanosis, No edema, Capillary Refill Less than 3 Seconds Skin: No rashes, No breakdown, - - left carotid surgical scar is clean and dry Musculoskeletal: No Tenderness to Palpation of Joints or Extremities Lymphatic: No Cervical, Supraclavicular, or Inguinal Adenopathy Neurological: Cranial nerves II-XII grossly intact, - - left UE hemiplegia Psych/Mental Status: Normal Affect, Appropriate, Alert and oriented to time, place, person, mood and affect Laboratory Results 04/05/18 16:35: POC Glucose 123 H 04/05/18 20:53: POC Glucose 195 H 04/06/18 06:58: POC Glucose 118 H 04/06/18 11:39: POC Glucose 236 H Current Medications Acetaminophen (Tylenol) 650 mg PO Q4H PRN PRN PRN Reason: PAIN Last Admin: 04/06/18 08:35 Dose: 650 mg Aspirin (Ecotrin) 81 mg PO DAILY@0800 [facility] Last Admin: 04/06/18 08:35 Dose: 81 mg Atorvastatin Calcium (Lipitor) 80 mg PO QHS [facility] Last Admin: 04/05/18 21:02 Dose: 80 mg Bisacodyl (Dulcolax) 10 mg RECTAL .PRN X 1 PRN PRN Reason: Constipation Calamine/Phenol (Calmoseptine Ointment) 1 applic TOPICAL BID [facility]; Protocol Last Admin: 04/06/18 08:44 Dose: 1 applicatio Carbamazepine (Tegretol) 100 mg PO DAILY [facility] Last Admin: 04/06/18 08:36 Dose: 100 mg Carbamazepine (Tegretol) 200 mg PO QHS [facility] Last Admin: 04/05/18 21:03 Dose: 200 mg Cholecalciferol (Vitamin D) 1,000 unit PO BID [facility] Last Admin: 04/06/18 08:38 Dose: 1,000 unit Cyanocobalamin (Vitamin B12) 500 mcg PO DAILY [facility] Last Admin: 04/06/18 08:35 Dose: 500 mcg Diazepam (Valium) 5 mg PO DAILY PRN PRN PRN Reason: ANXIETY Enoxaparin Sodium (Lovenox) 40 mg SC DAILY [facility] Last Admin: 04/06/18 08:36 Dose: 40 mg Ferrous Sulfate (Ferrous Sulfate) 325 mg PO 1200 [facility] Last Admin: 04/06/18 12:18 Dose: 325 mg Insulin Glargine (Lantus (Bkc)) 20 units SC QHS [facility] Last Admin: 04/05/18 21:01 Dose: 20 u Insulin Human Lispro (Humalog Kwikpen (Bkc)) 10 unit SC BREAKFAST [facility] Last Admin: 04/06/18 08:37 Dose: 10 units Insulin Human Lispro (Humalog Kwikpen (Bkc)) 20 unit SC DINNER [facility] Last Admin: 04/05/18 17:45 Dose: Not Given Insulin Human Lispro (Humalog Kwikpen (Bkc)) 20 unit SC LUNCH [facility] Last Admin: 04/06/18 12:20 Dose: 20 u Insulin Human Lispro (Humalog Kwikpen (Bkc)) 0 unit SC ACHS [facility]; Protocol Last Admin: 04/06/18 12:20 Dose: 2 u Isosorbide Mononitrate (Imdur) 60 mg PO QHS [facility] Last Admin: 04/05/18 20:59 Dose: 60 mg Levothyroxine Sodium (Synthroid) 100 mcg PO DAILY@0600 [facility] Last Admin: 04/06/18 06:46 Dose: 100 mcg Lisinopril (Zestril) 20 mg PO DAILY [facility] Last Admin: 04/06/18 08:38 Dose: 20 mg Magnesium Hydroxide (Milk Of Magnesia) 30 ml PO .PRN X 1 PRN PRN Reason: Constipation Metoprolol Tartrate (Lopressor (Beta Marino)) 12.5 mg PO BID [facility] Last Admin: 04/06/18 08:33 Dose: 12.5 mg Nutritional Formula (Lactose Free) (Glucerna Shake) 120 ml PO 4X/DAY [facility] Last Admin: 04/06/18 09:28 Dose: Not Given Nystatin (Mycostatin Powder) 1 applic TOPICAL TID [facility]; Protocol Last Admin: 04/06/18 06:46 Dose: 1 applicatio Senna/Docusate Sodium (Senokot-S, Elisa-Colace) 2 tablet PO BID [facility] Last Admin: 04/06/18 08:36 Dose: Not Given Medical Necessity - Tobacco Use Smoking Status: Never smoker Assessment/Plan All Active Problems (Last Reviewed 03/31/18 @ 11:23 by Panda Ferreira MD) Stroke (Acute) TIA (transient ischemic attack) (Acute) 1. 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 left carotid endarterectomy stable incision is healing well and is clean and dry 3. Hypertension on lisinopril and metoprolol. controlled 4. CAD s/p PCI: on aspirin, statin, metoprolol and imdur 5. Hypothyroidism; on synthroid 6. Diabetes mellitus on Gabriele nd lantus 20Iu qhs blood sugars have been poorly controlled, and are usually in the 200s Was originally on 40 units of Lantus but this was halved on account of patient not eating well. fasting sugar this morning was ~ 108 will increase sliding scale from low dose to high dose. Consider increasing Lantus 30 units if sugars continue to remain elevated. 7. CKD stage III: Stable 8. UTI: on keflex. urine cultured presumptive E. coli. DVT prophylaxis: lovenox Code Visit Inpatient E&M: 11976 Subs Hosp L2
[2018-04-06 16:35] LABS: Bedside Glucose 86 mg/dL (70-110)
[2018-04-06 18:05] LABS: Bedside Glucose 152 mg/dL (70-110)
--- NOTE | 2018-04-06 18:06 | NURSING ---
pt refused glucerna today despite staff education. Pt states she does not like the taste. Multiple flavors offered with ill effect.
[2018-04-06 19:14] VITALS: BP 163/61; PULSE 66; RESP 18; TEMP 36.8; O2SAT 98
[2018-04-06] MEDS: carBAMazepine 200 MG Tablet PO (21:31)
[2018-04-06 21:32] VITALS: BP 163/61; PULSE 66
[2018-04-06] MEDS: Senna/Docusate Sodium 1 Tablet 2 TABLET PO (21:32)
[2018-04-06] MEDS: Atorvastatin Calcium 80 MG Tablet PO (21:33)
[2018-04-06] MEDS: Glucerna Shake 120 ML LIQUID PO (21:34)
[2018-04-06] MEDS: Isosorbide Mononitrate 60 MG Tablet PO (21:34)
[2018-04-06 21:41] LABS: Bedside Glucose 137 mg/dL (70-110)
[2018-04-07 05:00] VITALS: BMI 36.5
[2018-04-07 07:05] LABS: Bedside Glucose 103 mg/dL (70-110)
[2018-04-07] MEDS: Nystatin Powder 15gm Bottle 1 APPLIC TOPICAL ×3 (07:11→20:34)
[2018-04-07] MEDS: Levothyroxine 100 MCG Tablet PO (07:11)
[2018-04-07] MEDS: Insulin Lispro 100 UNIT/ML INSULN.PEN 10 UNIT SC (07:45)
[2018-04-07] MEDS: Aspirin E.C. 81 MG Tablet PO (07:45)
[2018-04-07 07:46] VITALS: PULSE 65
[2018-04-07] MEDS: Metoprolol Tartrate 25 MG Tablet 12.5 MG PO ×2 (07:46→20:34)
[2018-04-07] MEDS: Enoxaparin 40 MG/0.4 ML Syringe SC (07:47)
[2018-04-07] MEDS: Senna/Docusate Sodium 1 Tablet 2 TABLET PO ×2 (07:47→20:34)
[2018-04-07] MEDS: Cyanocobalamin 500 MCG Tablet PO (07:48)
[2018-04-07] MEDS: carBAMazepine 200 MG Tablet 100 MG PO (07:48)
[2018-04-07] MEDS: Lisinopril 40 MG Tablet PO (07:49)
[2018-04-07 07:59] VITALS: BP 145/57; PULSE 65; RESP 12; TEMP 36.7; O2SAT 95
[2018-04-07] MEDS: Menthol/Lanolin/Calamine/Znox 113 GM Tube 1 APPLIC TOPICAL ×2 (08:07→21:09)
[2018-04-07] MEDS: Glucerna Shake 120 ML LIQUID PO ×4 (09:00→21:09)
[2018-04-07 11:16] VITALS: BMI 36.5
[2018-04-07 11:16] LABS: Bedside Glucose 193 mg/dL (70-110)
[2018-04-07] MEDS: Ferrous Sulfate 325 MG Tablet PO (13:21)
[2018-04-07] MEDS: Insulin Lispro 100 UNIT/ML INSULN.PEN SC ×3 (13:23→20:59)
[2018-04-07] MEDS: Insulin Lispro 100 UNIT/ML INSULN.PEN 20 UNIT SC ×2 (13:24→17:46)
[2018-04-07] MEDS: Acetaminophen 325 MG Tablet 650 MG PO (16:16)
[2018-04-07 16:20] LABS: Bedside Glucose 252 mg/dL (70-110)
[2018-04-07 19:53] VITALS: BP 159/53; PULSE 62; RESP 18; TEMP 36.6; O2SAT 98
[2018-04-07 20:34] VITALS: BP 159/53; PULSE 62
[2018-04-07] MEDS: carBAMazepine 200 MG Tablet PO (20:34)
[2018-04-07] MEDS: Atorvastatin Calcium 80 MG Tablet PO (20:57)
[2018-04-07] MEDS: Isosorbide Mononitrate 60 MG Tablet PO (20:58)
[2018-04-07 21:41] LABS: Bedside Glucose 266 mg/dL (70-110)
[2018-04-08 05:00] VITALS: BMI 36.5
[2018-04-08] MEDS: Levothyroxine 100 MCG Tablet PO (06:28)
[2018-04-08] MEDS: Nystatin Powder 15gm Bottle 1 APPLIC TOPICAL ×3 (06:28→20:39)
[2018-04-08 07:15] LABS: Bedside Glucose 127 mg/dL (70-110)
[2018-04-08] MEDS: Aspirin E.C. 81 MG Tablet PO (08:05)
[2018-04-08] MEDS: carBAMazepine 200 MG Tablet 100 MG PO (08:05)
[2018-04-08] MEDS: Lisinopril 40 MG Tablet PO (08:05)
[2018-04-08] MEDS: Cyanocobalamin 500 MCG Tablet PO (08:05)
[2018-04-08 08:06] VITALS: BP 152/66; PULSE 60
[2018-04-08] MEDS: Metoprolol Tartrate 25 MG Tablet 12.5 MG PO ×2 (08:06→20:38)
[2018-04-08] MEDS: Senna/Docusate Sodium 1 Tablet 2 TABLET PO ×2 (08:06→20:38)
[2018-04-08] MEDS: Enoxaparin 40 MG/0.4 ML Syringe SC (08:06)
[2018-04-08] MEDS: Glucerna Shake 120 ML LIQUID PO (08:10)
[2018-04-08] MEDS: Insulin Lispro 100 UNIT/ML INSULN.PEN 10 UNIT SC (08:13)
[2018-04-08 08:34] VITALS: BP 152/66; PULSE 60; RESP 12; TEMP 36.7; O2SAT 95
[2018-04-08] MEDS: Acetaminophen 325 MG Tablet 650 MG PO ×2 (09:36→20:37)
[2018-04-08] MEDS: Menthol/Lanolin/Calamine/Znox 113 GM Tube 1 APPLIC TOPICAL ×2 (09:38→20:51)
[2018-04-08 11:21] LABS: Bedside Glucose 188 mg/dL (70-110)
--- NOTE | 2018-04-08 12:41 | PN.NEURO_ITS ---
Subjective: No new complaints. Tolerating therapies. Asks about ongoing plans. - Physical Exam General: Alert, Oriented x3 - Mild right hemiparesis, improved. She has 1/5 strength in her hand intrinsic muscles, 4/5 more proximally. Psych/Mental Status: Normal Affect Vital Signs Temp Pulse Resp BP Pulse Ox 36.7 C 60 12 152/66 H 95 04/08/18 08:34 04/08/18 08:34 04/08/18 08:34 04/08/18 08:34 04/08/18 08:34 Oxygen Delivery Method Room Air Weight: 77.6 kg Body Mass Index (BMI) 36.5 Finger Stick Blood Glucose 134 Intake and Output for Last 24 Hours 04/06/18 04/07/18 04/08/18 23:59 23:59 23:59 Intake Total 1340 / 1340 840 / 840 360 / 360 Output Total 1500 / 1500 1200 / 1200 100 / 100 Balance -160 / -160 -360 / -360 260 / 260 POC Glucose 04/08/18 04/08/18 04/07/18 11:09 07:06 20:52 POC Glucose 188 H 127 H 266 H 04/07/18 16:13 POC Glucose 252 H Medical Necessity - Tobacco Use Smoking Status: Never smoker Assessment/Plan All Active Problems (Last Reviewed 03/31/18 @ 11:23 by Panda Ferreira MD) Stroke (Acute) TIA (transient ischemic attack) (Acute) Debility status post right MCA distribution infarct as well as left MCA distribution infarct. She is status post left ICA CEA on 03/24/18 and was previously functionally independent. Goal is protestant of prior level of functional independence. This is complicated by her debility due to her right MCA distribution stroke and smaller left MCA distribution stroke. Plan: Physical therapy for gait and balance Occupational Therapy for ADLs Speech therapy: Currently n.p.o. awaiting reevaluation. 04/04: Now on mechanical soft. 04/08: Stable/improved Hypertension: Continue antihypertensives. Blood pressure is actually been somewhat low will hold her Coreg if her systolic is less than 120 Stroke status post CEA: Continue aspirin, Plavix, blood pressure control, statin therapy. We will need to verify testing from the [facility] including echocardiogram given that this is a bilateral infarct as well as supposedly a TCD embolic study. Diabetes: Insulin therapy, monitor Accu-Cheks. 04/08: Stable/controlled Bowel protocol DVT prophylaxis: Lovenox History of meningioma: Status post gamma knife therapy in 2017, this appears to be stable History of trigeminal neuralgia: On Tegretol 100/200. Will continue but will check Tegretol level. Hypersomnia: This is likely post stroke. This should improve but will check Tegretol level and labs.
[2018-04-08] MEDS: Ferrous Sulfate 325 MG Tablet PO (12:50)
[2018-04-08] MEDS: Insulin Lispro 100 UNIT/ML INSULN.PEN SC ×3 (12:50→20:51)
--- NOTE | 2018-04-08 13:13 | NURSING ---
1230-pt working with therapy at [facility] in [facility]. pt protesting and stated, i just want to go home! inappropriately throwing a fit and yelling out instead of cooperating and doing the task. pt redirected but argues with therapist and staff. when asked to then go get back in [place]. pt walked 25feet with cane and min assist x1. pt is able to do the work but refusing
[2018-04-08 13:17] VITALS: BMI 36.5
[2018-04-08 17:02] LABS: Bedside Glucose 182 mg/dL (70-110)
[2018-04-08 20:07] VITALS: BP 159/72; PULSE 59; RESP 18; TEMP 36.6; O2SAT 96
[2018-04-08 20:11] VITALS: BMI 36.5
[2018-04-08 20:29] VITALS: RESP 17
[2018-04-08] MEDS: Atorvastatin Calcium 80 MG Tablet PO (20:37)
[2018-04-08] MEDS: Isosorbide Mononitrate 60 MG Tablet PO (20:37)
[2018-04-08 20:38] VITALS: PULSE 60
[2018-04-08] MEDS: carBAMazepine 200 MG Tablet PO (20:39)
[2018-04-08 21:20] LABS: Bedside Glucose 211 mg/dL (70-110)
[2018-04-09] MEDS: Nystatin Powder 15gm Bottle 1 APPLIC TOPICAL ×3 (05:40→20:24)
[2018-04-09] MEDS: Levothyroxine 100 MCG Tablet PO (05:40)
[2018-04-09] MEDS: Modafinil 200 MG Tablet PO (05:40)
[2018-04-09 06:36] LABS: Bedside Glucose 157 mg/dL (70-110)
[2018-04-09 07:29] VITALS: BP 125/68; PULSE 53; RESP 18; TEMP 36.9; O2SAT 98
[2018-04-09] MEDS: Insulin Lispro 100 UNIT/ML INSULN.PEN SC ×2 (09:07→17:23)
[2018-04-09] MEDS: Aspirin E.C. 81 MG Tablet PO (09:08)
[2018-04-09] MEDS: Insulin Lispro 100 UNIT/ML INSULN.PEN 10 UNIT SC (09:08)
[2018-04-09] MEDS: Menthol/Lanolin/Calamine/Znox 113 GM Tube 1 APPLIC TOPICAL ×2 (09:08→20:26)
[2018-04-09 09:09] VITALS: BP 125/68; PULSE 53
[2018-04-09] MEDS: Metoprolol Tartrate 25 MG Tablet 12.5 MG PO ×2 (09:09→20:25)
[2018-04-09] MEDS: Enoxaparin 40 MG/0.4 ML Syringe SC (09:10)
[2018-04-09] MEDS: carBAMazepine 200 MG Tablet 100 MG PO (09:10)
[2018-04-09] MEDS: Lisinopril 40 MG Tablet PO (09:11)
[2018-04-09] MEDS: Cyanocobalamin 500 MCG Tablet PO (09:11)
[2018-04-09] MEDS: Senna/Docusate Sodium 1 Tablet 2 TABLET PO ×2 (09:15→20:24)
[2018-04-09 12:16] LABS: Bedside Glucose 227 mg/dL (70-110)
[2018-04-09] MEDS: Ferrous Sulfate 325 MG Tablet PO (12:21)
[2018-04-09] MEDS: Acetaminophen 325 MG Tablet 650 MG PO (12:23)
--- NOTE | 2018-04-09 14:56 | PCM.PN.HOSP ---
Subjective: Patient seen and examined. She has no complaints and feels well. Vitals reviewed. Vitals/I&O's: Vital Signs Temp Pulse Resp BP Pulse Ox 98.4 F 53 L 18 125/68 H 98 04/09/18 07:29 04/09/18 09:09 04/09/18 07:29 04/09/18 09:09 04/09/18 07:29 Oxygen Delivery Method Room Air Weight: 173 lb 1.006 oz Body Mass Index (BMI) 36.5 Finger Stick Blood Glucose 134 Intake and Output for Last 24 Hours 04/07/18 04/08/18 04/09/18 23:59 23:59 23:59 Intake Total 840 / 840 720 / 720 340 / 340 Output Total 1200 / 1200 400 / 400 200 / 200 Balance -360 / -360 320 / 320 140 / 140 General: Alert, Oriented x3, Cooperative, No apparent distress HEENT: Atraumatic, PERRLA, EOMI, Normocephalic Oral: Moist Mucosa Neck: Supple, No JVD, Negative Carotid Bruits Lungs: Clear to auscultation, Normal air movement, No rhonchi, No rales Cardiovascular: Regular rate, Regular Rhythm, Normal S1, Normal S2, No murmurs Abdomen: Bowel Sounds Present, Soft, Non Tender, Non-Distended, No Hepato-splenomegaly Extremities: No clubbing, No cyanosis, No edema, Capillary Refill Less than 3 Seconds Skin: No rashes, No breakdown, - - left carotid surgical scar is clean and dry Musculoskeletal: No Tenderness to Palpation of Joints or Extremities Lymphatic: No Cervical, Supraclavicular, or Inguinal Adenopathy Neurological: Cranial nerves II-XII grossly intact, - - left UE hemiplegia Psych/Mental Status: Normal Affect, Appropriate, Alert and oriented to time, place, person, mood and affect Laboratory Results 04/08/18 16:35: POC Glucose 182 H 04/08/18 20:48: POC Glucose 211 H 04/09/18 06:28: POC Glucose 157 H 04/09/18 12:06: POC Glucose 227 H Current Medications Acetaminophen (Tylenol) 650 mg PO Q4H PRN PRN PRN Reason: PAIN Last Admin: 04/09/18 12:23 Dose: 650 mg Aspirin (Ecotrin) 81 mg PO DAILY@0800 [facility] Last Admin: 04/09/18 09:08 Dose: 81 mg Atorvastatin Calcium (Lipitor) 80 mg PO QHS [facility] Last Admin: 04/08/18 20:37 Dose: 80 mg Bisacodyl (Dulcolax) 10 mg RECTAL .PRN X 1 PRN PRN Reason: Constipation Calamine/Phenol (Calmoseptine Ointment) 1 applic TOPICAL BID [facility]; Protocol Last Admin: 04/09/18 09:08 Dose: 1 applicatio Carbamazepine (Tegretol) 100 mg PO DAILY [facility] Last Admin: 04/09/18 09:10 Dose: 100 mg Carbamazepine (Tegretol) 200 mg PO QHS [facility] Last Admin: 04/08/18 20:39 Dose: 200 mg Cholecalciferol (Vitamin D) 1,000 unit PO BID [facility] Last Admin: 04/09/18 09:11 Dose: 1,000 unit Cyanocobalamin (Vitamin B12) 500 mcg PO DAILY [facility] Last Admin: 04/09/18 09:11 Dose: 500 mcg Diazepam (Valium) 5 mg PO DAILY PRN PRN PRN Reason: ANXIETY Enoxaparin Sodium (Lovenox) 40 mg SC DAILY [facility] Last Admin: 04/09/18 09:10 Dose: 40 mg Ferrous Sulfate (Ferrous Sulfate) 325 mg PO 1200 [facility] Last Admin: 04/09/18 12:21 Dose: 325 mg Insulin Glargine (Lantus (Bkc)) 20 units SC QHS [facility] Last Admin: 04/08/18 20:50 Dose: 20 u Insulin Human Lispro (Humalog Kwikpen (Bkc)) 10 unit SC BREAKFAST [facility] Last Admin: 04/09/18 09:08 Dose: 10 units Insulin Human Lispro (Humalog Kwikpen (Bkc)) 20 unit SC DINNER [facility] Last Admin: 04/08/18 17:58 Dose: Not Given Insulin Human Lispro (Humalog Kwikpen (Bkc)) 20 unit SC LUNCH [facility] Last Admin: 04/09/18 12:20 Dose: Not Given Insulin Human Lispro (Humalog Kwikpen (Bkc)) 0 unit SC ACHS [facility]; Protocol Last Admin: 04/09/18 12:20 Dose: Not Given Isosorbide Mononitrate (Imdur) 60 mg PO QHS [facility] Last Admin: 04/08/18 20:37 Dose: 60 mg Levothyroxine Sodium (Synthroid) 100 mcg PO DAILY@0600 [facility] Last Admin: 04/09/18 05:40 Dose: 100 mcg Lisinopril (Zestril) 40 mg PO DAILY [facility] Last Admin: 04/09/18 09:11 Dose: 40 mg Magnesium Hydroxide (Milk Of Magnesia) 30 ml PO .PRN X 1 PRN PRN Reason: Constipation Metoprolol Tartrate (Lopressor (Beta Marino)) 12.5 mg PO BID [facility] Last Admin: 04/09/18 09:09 Dose: 12.5 mg Modafinil (Provigil) 200 mg PO DAILY@0600 [facility] Last Admin: 04/09/18 05:40 Dose: 200 mg Nystatin (Mycostatin Powder) 1 applic TOPICAL TID [facility]; Protocol Last Admin: 04/09/18 12:25 Dose: 1 applicatio Senna/Docusate Sodium (Senokot-S, Elisa-Colace) 2 tablet PO BID [facility] Last Admin: 04/09/18 09:15 Dose: 2 tablet Medical Necessity - Tobacco Use Smoking Status: Never smoker Assessment/Plan All Active Problems (Last Reviewed 03/31/18 @ 11:23 by Panad Ferreira MD) Stroke (Acute) TIA (transient ischemic attack) (Acute) 1. 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 left carotid endarterectomy stable incision is healing well and is clean and dry 3. Hypertension on lisinopril and metoprolol. controlled 4. CAD s/p PCI: on aspirin, statin, metoprolol and imdur 5. Hypothyroidism; on synthroid 6. Diabetes mellitus on Gabriele nd lantus 20Iu qhs blood sugars have been poorly controlled, and are usually in the 200s Was originally on 40 units of Lantus but this was halved on account of patient not eating well. blood sugars in 180s-200s on ISS high dose will increase lantus to 30IU qhs 7. CKD stage III: Stable 8. UTI: on keflex course of 5 days DVT prophylaxis: lovenox Code Visit Inpatient E&M: 81429 Subs Hosp L2
--- NOTE | 2018-04-09 14:59 | PN_ITS ---
Subjective: Patient seen and examined. She has no complaints and feels well. Vitals reviewed. Vitals/I&O's: Vital Signs Temp Pulse Resp BP Pulse Ox 98.4 F 53 L 18 125/68 H 98 04/09/18 07:29 04/09/18 09:09 04/09/18 07:29 04/09/18 09:09 04/09/18 07:29 Oxygen Delivery Method Room Air Weight: 173 lb 1.006 oz Body Mass Index (BMI) 36.5 Finger Stick Blood Glucose 134 Intake and Output for Last 24 Hours 04/07/18 04/08/18 04/09/18 23:59 23:59 23:59 Intake Total 840 / 840 720 / 720 340 / 340 Output Total 1200 / 1200 400 / 400 200 / 200 Balance -360 / -360 320 / 320 140 / 140 General: Alert, Oriented x3, Cooperative, No apparent distress HEENT: Atraumatic, PERRLA, EOMI, Normocephalic Oral: Moist Mucosa Neck: Supple, No JVD, Negative Carotid Bruits Lungs: Clear to auscultation, Normal air movement, No rhonchi, No rales Cardiovascular: Regular rate, Regular Rhythm, Normal S1, Normal S2, No murmurs Abdomen: Bowel Sounds Present, Soft, Non Tender, Non-Distended, No Hepato- splenomegaly Extremities: No clubbing, No cyanosis, No edema, Capillary Refill Less than 3 Seconds Skin: No rashes, No breakdown, - - left carotid surgical scar is clean and dry Musculoskeletal: No Tenderness to Palpation of Joints or Extremities Lymphatic: No Cervical, Supraclavicular, or Inguinal Adenopathy Neurological: Cranial nerves II-XII grossly intact, - - left UE hemiplegia Psych/Mental Status: Normal Affect, Appropriate, Alert and oriented to time, place, person, mood and affect Laboratory Results 04/08/18 16:35: POC Glucose 182 H 04/08/18 20:48: POC Glucose 211 H 04/09/18 06:28: POC Glucose 157 H 04/09/18 12:06: POC Glucose 227 H Current Medications Acetaminophen (Tylenol) 650 mg PO Q4H PRN PRN PRN Reason: PAIN Last Admin: 04/09/18 12:23 Dose: 650 mg Aspirin (Ecotrin) 81 mg PO DAILY@0800 [facility] Last Admin: 04/09/18 09:08 Dose: 81 mg Atorvastatin Calcium (Lipitor) 80 mg PO QHS [facility] Last Admin: 04/08/18 20:37 Dose: 80 mg Bisacodyl (Dulcolax) 10 mg RECTAL .PRN X 1 PRN PRN Reason: Constipation Calamine/Phenol (Calmoseptine Ointment) 1 applic TOPICAL BID [facility]; Protocol Last Admin: 04/09/18 09:08 Dose: 1 applicatio Carbamazepine (Tegretol) 100 mg PO DAILY [facility] Last Admin: 04/09/18 09:10 Dose: 100 mg Carbamazepine (Tegretol) 200 mg PO QHS [facility] Last Admin: 04/08/18 20:39 Dose: 200 mg Cholecalciferol (Vitamin D) 1,000 unit PO BID [facility] Last Admin: 04/09/18 09:11 Dose: 1,000 unit Cyanocobalamin (Vitamin B12) 500 mcg PO DAILY [facility] Last Admin: 04/09/18 09:11 Dose: 500 mcg Diazepam (Valium) 5 mg PO DAILY PRN PRN PRN Reason: ANXIETY Enoxaparin Sodium (Lovenox) 40 mg SC DAILY [facility] Last Admin: 04/09/18 09:10 Dose: 40 mg Ferrous Sulfate (Ferrous Sulfate) 325 mg PO 1200 [facility] Last Admin: 04/09/18 12:21 Dose: 325 mg Insulin Glargine (Lantus (Bkc)) 20 units SC QHS [facility] Last Admin: 04/08/18 20:50 Dose: 20 u Insulin Human Lispro (Humalog Kwikpen (Bkc)) 10 unit SC BREAKFAST [facility] Last Admin: 04/09/18 09:08 Dose: 10 units Insulin Human Lispro (Humalog Kwikpen (Bkc)) 20 unit SC DINNER [facility]PL[facility] Last Admin: 04/08/18 17:58 Dose: Not Given Insulin Human Lispro (Humalog Kwikpen (Bkc)) 20 unit SC LUNCH [facility] Last Admin: 04/09/18 12:20 Dose: Not Given Insulin Human Lispro (Humalog Kwikpen (Bkc)) 0 unit SC ACHS [facility]; Protocol Last Admin: 04/09/18 12:20 Dose: Not Given Isosorbide Mononitrate (Imdur) 60 mg PO QHS [facility] Last Admin: 04/08/18 20:37 Dose: 60 mg Levothyroxine Sodium (Synthroid) 100 mcg PO DAILY@0600 [facility] Last Admin: 04/09/18 05:40 Dose: 100 mcg Lisinopril (Zestril) 40 mg PO DAILY [facility] Last Admin: 04/09/18 09:11 Dose: 40 mg Magnesium Hydroxide (Milk Of Magnesia) 30 ml PO .PRN X 1 PRN PRN Reason: Constipation Metoprolol Tartrate (Lopressor (Beta Marino)) 12.5 mg PO BID [facility] Last Admin: 04/09/18 09:09 Dose: 12.5 mg Modafinil (Provigil) 200 mg PO DAILY@0600 [facility] Last Admin: 04/09/18 05:40 Dose: 200 mg Nystatin (Mycostatin Powder) 1 applic TOPICAL TID [facility]; Protocol Last Admin: 04/09/18 12:25 Dose: 1 applicatio Senna/Docusate Sodium (Senokot-S, Elisa-Colace) 2 tablet PO BID [facility] Last Admin: 04/09/18 09:15 Dose: 2 tablet Medical Necessity - Tobacco Use Smoking Status: Never smoker Assessment/Plan All Active Problems (Last Reviewed 03/31/18 @ 11:23 by Panda Ferreira MD) Stroke (Acute) TIA (transient ischemic attack) (Acute) 1. Debility status post recent right occipital infarct leading to left-sided weakness * stable * on aspirin, plavix and statin * 2. left carotid endarterectomy * stable * incision is healing well and is clean and dry * 3. Hypertension * on lisinopril and metoprolol. * controlled * 4. CAD s/p PCI: on aspirin, statin, metoprolol and imdur 5. Hypothyroidism; on synthroid 6. Diabetes mellitus * on Gabriele nd lantus 20Iu qhs * blood sugars have been poorly controlled, and are usually in the 200s * Was originally on 40 units of Lantus but this was halved on account of patient not eating well. * blood sugars in 180s-200s * on ISS high dose * will increase lantus to 30IU qhs * 7. CKD stage III: Stable 8. UTI: on keflex course of 5 days DVT prophylaxis: lovenox Code Visit Inpatient E&M: 67999 Subs Hosp L2
[2018-04-09 16:01] VITALS: BMI 36.5
[2018-04-09 17:21] LABS: Bedside Glucose 330 mg/dL (70-110)
[2018-04-09] MEDS: Insulin Lispro 100 UNIT/ML INSULN.PEN 20 UNIT SC (17:23)
[2018-04-09 19:00] VITALS: BP 150/71; PULSE 60; RESP 16; TEMP 37.1; O2SAT 97
[2018-04-09] MEDS: carBAMazepine 200 MG Tablet PO (20:23)
[2018-04-09 20:25] VITALS: PULSE 60
[2018-04-09] MEDS: Isosorbide Mononitrate 60 MG Tablet PO (20:26)
[2018-04-09] MEDS: Atorvastatin Calcium 80 MG Tablet PO (20:26)
[2018-04-09 20:39] VITALS: BMI 36.5
[2018-04-09 21:26] LABS: Bedside Glucose 102 mg/dL (70-110)
[2018-04-10] MEDS: Acetaminophen 325 MG Tablet 650 MG PO ×3 (00:56→21:48)
[2018-04-10] MEDS: Levothyroxine 100 MCG Tablet PO (06:38)
[2018-04-10] MEDS: Nystatin Powder 15gm Bottle 1 APPLIC TOPICAL ×3 (06:38→21:51)
[2018-04-10] MEDS: Modafinil 200 MG Tablet PO (06:38)
[2018-04-10 07:06] LABS: Bedside Glucose 120 mg/dL (70-110)
[2018-04-10 07:52] VITALS: BP 161/82; PULSE 60; RESP 16; TEMP 36.8; O2SAT 97
[2018-04-10 09:49] VITALS: BP 161/82; PULSE 60
[2018-04-10] MEDS: Aspirin E.C. 81 MG Tablet PO (09:49)
[2018-04-10] MEDS: Metoprolol Tartrate 25 MG Tablet 12.5 MG PO ×2 (09:49→21:50)
[2018-04-10] MEDS: Lisinopril 40 MG Tablet PO (09:49)
[2018-04-10] MEDS: Cyanocobalamin 500 MCG Tablet PO (09:49)
[2018-04-10] MEDS: Senna/Docusate Sodium 1 Tablet 2 TABLET PO ×2 (09:49→21:49)
[2018-04-10] MEDS: Insulin Lispro 100 UNIT/ML INSULN.PEN 10 UNIT SC (09:50)
[2018-04-10] MEDS: Menthol/Lanolin/Calamine/Znox 113 GM Tube 1 APPLIC TOPICAL ×2 (09:51→21:50)
[2018-04-10] MEDS: Enoxaparin 40 MG/0.4 ML Syringe SC (09:51)
[2018-04-10] MEDS: carBAMazepine 200 MG Tablet 100 MG PO (09:52)
[2018-04-10 12:56] LABS: Bedside Glucose 188 mg/dL (70-110)
[2018-04-10] MEDS: Insulin Lispro 100 UNIT/ML INSULN.PEN SC ×2 (13:18→21:51)
[2018-04-10] MEDS: Ferrous Sulfate 325 MG Tablet PO (13:19)
[2018-04-10 14:27] VITALS: BMI 36.5
[2018-04-10 17:21] LABS: Bedside Glucose 120 mg/dL (70-110)
[2018-04-10 19:50] VITALS: BP 140/51; PULSE 58; RESP 18; TEMP 37.1; O2SAT 96
[2018-04-10 21:48] VITALS: BMI 36.5
[2018-04-10 21:49] VITALS: RESP 17
[2018-04-10] MEDS: Atorvastatin Calcium 80 MG Tablet PO (21:49)
[2018-04-10] MEDS: Isosorbide Mononitrate 60 MG Tablet PO (21:49)
[2018-04-10] MEDS: carBAMazepine 200 MG Tablet PO (21:49)
[2018-04-10 21:50] VITALS: BP 140/51; PULSE 56
[2018-04-10 22:11] LABS: Bedside Glucose 192 mg/dL (70-110)
[2018-04-11] MEDS: Modafinil 200 MG Tablet PO (05:28)
[2018-04-11] MEDS: Levothyroxine 100 MCG Tablet PO (05:29)
[2018-04-11] MEDS: Nystatin Powder 15gm Bottle 1 APPLIC TOPICAL ×3 (05:29→21:45)
[2018-04-11 06:51] LABS: Bedside Glucose 142 mg/dL (70-110)
[2018-04-11 07:41] VITALS: BP 140/61; PULSE 58; RESP 18; TEMP 36.9; O2SAT 96
[2018-04-11] MEDS: Insulin Lispro 100 UNIT/ML INSULN.PEN 10 UNIT SC (07:45)
[2018-04-11 07:46] VITALS: PULSE 58
[2018-04-11] MEDS: Cyanocobalamin 500 MCG Tablet PO (07:46)
[2018-04-11] MEDS: carBAMazepine 200 MG Tablet 100 MG PO (07:46)
[2018-04-11] MEDS: Metoprolol Tartrate 25 MG Tablet 12.5 MG PO ×2 (07:46→21:46)
[2018-04-11] MEDS: Lisinopril 40 MG Tablet PO (07:46)
[2018-04-11] MEDS: Enoxaparin 40 MG/0.4 ML Syringe SC (07:47)
[2018-04-11] MEDS: Aspirin E.C. 81 MG Tablet PO (07:47)
[2018-04-11] MEDS: Acetaminophen 325 MG Tablet 650 MG PO (08:46)
[2018-04-11] MEDS: Menthol/Lanolin/Calamine/Znox 113 GM Tube 1 APPLIC TOPICAL ×2 (08:49→21:49)
--- NOTE | 2018-04-11 11:28 | CASEMGMT ---
Team meeting held. Patient present as well as patient family. Patient approved to 04/21/18 and plan is for patient to discharge on 04/21/18 to a SNF. The Transitional Care Unit is patient first choice, [facility] ([facility]) is second choice, and [facility] is third choice. Patient and patient family agreeable to this social sciences research scientist making referral for TCU but aware that a bed will not be able to be held for a week for patient and that social work will get back to patient on this during next team meeting, next Wednesday. Patient to continue with further care and treatment on the Inpatient Rehab Unit until time of discharge. Support given. Telephone call to TCU, Joi. This social sciences research scientist making referral. Patient name now on list. Will need to follow up with next week to confirm whether or not patient is able to discharge to TCU. Proposed discharge date: 04/21/18 PLAN: Discharge to SNF, possibly TCU if approved and bed is open. Frances GONSALEZ, MIKEL
--- NOTE | 2018-04-11 11:37 | PCM.PN.NEU ---
Subjective: Staffed in team meeting. Son and are both present. With physical therapy she is ambulating 20-35 feet with a cane with minimal assistance and is able to tolerate 3 steps. Occupational therapy is noticing some pain in her left shoulder but no subluxation. The patient currently defers treatment for this. Speech therapy notes left neglect but overall improved. Therapies have noted mood lability which was discussed with the patient and family and they agreed to Lexapro 10 mg daily. Plan for discharge is on the . - Physical Exam General: Alert, Oriented x3, Cooperative Psych/Mental Status: Alert and oriented to time, place, person, mood and affect Vital Signs Temp Pulse Resp BP Pulse Ox 36.9 C 58 L 18 140/61 H 96 04/11/18 07:41 04/11/18 07:46 04/11/18 07:41 04/11/18 07:41 04/11/18 07:41 Oxygen Delivery Method Room Air Weight: 77.1 kg Body Mass Index (BMI) 36.5 Finger Stick Blood Glucose 134 Intake and Output for Last 24 Hours 04/09/18 04/10/18 04/11/18 23:59 23:59 23:59 Intake Total 460 / 460 360 / 360 160 / 160 Output Total 500 / 500 850 / 850 350 / 350 Balance -40 / -40 -490 / -490 -190 / -190 POC Glucose 04/11/18 04/10/18 04/10/18 06:46 21:45 17:16 POC Glucose 142 H 192 H 120 H 04/10/18 11:49 POC Glucose 188 H Current Home Med List Medication Instructions Recorded Confirmed Type Clopidogrel Bisulfate [Plavix] 75 mg PO DAILY 09/12/16 03/30/18 History Insulin Aspart [Novolog Flexpen] 10 units SUBCUT BREAKFAST 09/12/16 03/30/18 History Insulin Aspart [Novolog Flexpen] 20 units SUBCUT DINNER 09/12/16 03/30/18 History Insulin Aspart [Novolog Flexpen] 20 units SUBCUT LUNCH 09/12/16 03/30/18 History Levothyroxine [Synthroid] 100 mcg PO DAILY 09/12/16 03/30/18 History Calcium Carbonate/Vitamin D3 1,000 mg PO BID 09/13/17 03/30/18 History [Calcium 500+D Tablet Chew] Cholecalciferol (Vitamin D3) 1,000 unit PO BID 09/13/17 03/30/18 History [Vitamin D3] Fexofenadine HCl 180 mg PO DAILY 09/13/17 03/30/18 History carbamazepine 200 mg tablet 100 mg PO DAILY tab 12/02/17 03/30/18 History ferrous sulfate 325 mg (65 mg 325 mg PO DAILY tab 12/02/17 03/30/18 History iron) tablet insulin detemir (U-100) 100 40 unit SC QHS ml 12/02/17 03/30/18 History unit/mL (3 mL) subcutaneous pen ondansetron HCl 4 mg tablet 4 mg PO .COMPLEX PRN tab 12/02/17 03/30/18 History Aspirin E.C. [Ecotrin] 81 mg PO DAILY@0800 02/02/18 03/30/18 History Atorvastatin Calcium [Lipitor] 80 mg PO QHS 02/02/18 03/30/18 History Docusate Sodium [Colace] 100 mg PO DAILY 02/02/18 03/30/18 History Isosorbide Mononitrate [Imdur] 60 mg PO QHS 02/02/18 03/30/18 History Carbamazepine [Tegretol] 200 mg PO QHS 03/17/18 03/30/18 History Diazepam [Valium] 5 mg PO DAILY PRN PRN 03/17/18 03/30/18 History Acetaminophen [Tylenol] 325 mg PO Q4H PRN PRN 03/30/18 03/30/18 History Cyanocobalamin (Vitamin B-12) 500 mcg PO DAILY 03/30/18 03/30/18 History [B-12] Lisinopril 20 mg PO DAILY 03/30/18 03/30/18 History Metoprolol Tartrate 12.5 mg PO BID 03/30/18 03/30/18 History Medical Necessity - Tobacco Use Smoking Status: Never smoker Assessment/Plan All Active Problems (Last Reviewed 03/31/18 @ 11:23 by Panda Ferreira MD) Stroke (Acute) TIA (transient ischemic attack) (Acute) Debility status post right MCA distribution infarct as well as left MCA distribution infarct. She is status post left ICA CEA on 03/24/18 and was previously functionally independent. Goal is rastafarian of prior level of functional independence. This is complicated by her debility due to her right MCA distribution stroke and smaller left MCA distribution stroke. Plan: Physical therapy for gait and balance 04/11: Stable/improved Occupational Therapy for ADLs 04/11: Stable/improved Speech therapy: Currently n.p.o. awaiting reevaluation. 04/04: Now on mechanical soft. 04/08: Stable/improved Hypertension: Continue antihypertensives. Blood pressure is actually been somewhat low will hold her Coreg if her systolic is less than 120 Stroke status post CEA: Continue aspirin, Plavix, blood pressure control, statin therapy. We will need to verify testing from the [facility] including echocardiogram given that this is a bilateral infarct as well as supposedly a TCD embolic study. Diabetes: Insulin therapy, monitor Accu-Cheks. 04/08: Stable/controlled Bowel protocol DVT prophylaxis: Lovenox History of meningioma: Status post gamma knife therapy in 2016, this appears to be stable History of trigeminal neuralgia: On Tegretol 100/200. Will continue but will check Tegretol level. 04/11: Stable, asymptomatic Hypersomnia: This is likely post stroke. This should improve but will check Tegretol level and labs. 04/11: Stable Plan for discharge 04/21
[2018-04-11 12:11] LABS: Bedside Glucose 244 mg/dL (70-110)
[2018-04-11] MEDS: Ferrous Sulfate 325 MG Tablet PO (12:12)
[2018-04-11] MEDS: Insulin Lispro 100 UNIT/ML INSULN.PEN SC ×2 (12:13→21:48)
[2018-04-11] MEDS: Insulin Lispro 100 UNIT/ML INSULN.PEN 20 UNIT SC (12:13)
--- NOTE | 2018-04-11 14:16 | PCM.PN.HOSP ---
Subjective: Patient seen and examined. Feels well and has no complaints. Review of systems otherwise negative. Labs and vitals reviewed. Was started on Lexapro per Neurology on account of labile mood. Vitals/I&O's: Vital Signs Temp Pulse Resp BP Pulse Ox 98.4 F 58 L 18 140/61 H 96 04/11/18 07:41 04/11/18 07:46 04/11/18 07:41 04/11/18 07:41 04/11/18 07:41 Oxygen Delivery Method Room Air Weight: 169 lb 15.622 oz Body Mass Index (BMI) 36.5 Finger Stick Blood Glucose 134 Intake and Output for Last 24 Hours 04/09/18 04/10/18 04/11/18 23:59 23:59 23:59 Intake Total 460 / 460 360 / 360 420 / 420 Output Total 500 / 500 850 / 850 550 / 550 Balance -40 / -40 -490 / -490 -130 / -130 General: Alert, Oriented x3, Cooperative, No apparent distress HEENT: Atraumatic, PERRLA, EOMI, Normocephalic Oral: Moist Mucosa Neck: Supple, No JVD, Negative Carotid Bruits Lungs: Clear to auscultation, Normal air movement, No rhonchi, No rales Cardiovascular: Regular rate, Regular Rhythm, Normal S1, Normal S2, No murmurs Abdomen: Bowel Sounds Present, Soft, Non Tender, Non-Distended, No Hepato-splenomegaly Extremities: No clubbing, No cyanosis, No edema, Capillary Refill Less than 3 Seconds Skin: No rashes, No breakdown, - - left carotid surgical scar is clean and dry Musculoskeletal: No Tenderness to Palpation of Joints or Extremities Lymphatic: No Cervical, Supraclavicular, or Inguinal Adenopathy Neurological: Cranial nerves II-XII grossly intact, - - left UE hemiplegia Psych/Mental Status: Normal Affect, Appropriate, Alert and oriented to time, place, person, mood and affect Laboratory Results 04/10/18 17:16: POC Glucose 120 H 04/10/18 21:45: POC Glucose 192 H 04/11/18 06:46: POC Glucose 142 H 04/11/18 12:03: POC Glucose 244 H Current Medications Acetaminophen (Tylenol) 650 mg PO Q4H PRN PRN PRN Reason: PAIN Last Admin: 04/11/18 08:46 Dose: 650 mg Aspirin (Ecotrin) 81 mg PO DAILY@0800 [facility] Last Admin: 04/11/18 07:47 Dose: 81 mg Atorvastatin Calcium (Lipitor) 80 mg PO QHS [facility] Last Admin: 04/10/18 21:49 Dose: 80 mg Bisacodyl (Dulcolax) 10 mg RECTAL .PRN X 1 PRN PRN Reason: Constipation Calamine/Phenol (Calmoseptine Ointment) 1 applic TOPICAL BID [facility]; Protocol Last Admin: 04/11/18 08:49 Dose: 1 applicatio Carbamazepine (Tegretol) 100 mg PO DAILY [facility] Last Admin: 04/11/18 07:46 Dose: 100 mg Carbamazepine (Tegretol) 200 mg PO QHS [facility] Last Admin: 04/10/18 21:49 Dose: 200 mg Cholecalciferol (Vitamin D) 1,000 unit PO BID [facility] Last Admin: 04/11/18 07:46 Dose: 1,000 unit Cyanocobalamin (Vitamin B12) 500 mcg PO DAILY [facility] Last Admin: 04/11/18 07:46 Dose: 500 mcg Diazepam (Valium) 5 mg PO DAILY PRN PRN PRN Reason: ANXIETY Enoxaparin Sodium (Lovenox) 40 mg SC DAILY [facility] Last Admin: 04/11/18 07:47 Dose: 40 mg Escitalopram Oxalate (Lexapro) 10 mg PO DAILY [facility] Ferrous Sulfate (Ferrous Sulfate) 325 mg PO 1200 [facility] Last Admin: 04/11/18 12:12 Dose: 325 mg Insulin Glargine (Lantus (Bkc)) 30 units SC QHS [facility] Last Admin: 04/10/18 22:02 Dose: 30 units Insulin Human Lispro (Humalog Kwikpen (Bkc)) 10 unit SC BREAKFAST [facility] Last Admin: 04/11/18 07:45 Dose: 10 units Insulin Human Lispro (Humalog Kwikpen (Bkc)) 20 unit SC DINNER [facility] Last Admin: 04/10/18 17:47 Dose: Not Given Insulin Human Lispro (Humalog Kwikpen (Bkc)) 20 unit SC LUNCH [facility] Last Admin: 04/11/18 12:13 Dose: 20 u Insulin Human Lispro (Humalog Kwikpen (Bkc)) 0 unit SC ACHS [facility]; Protocol Last Admin: 04/11/18 12:13 Dose: 2 u Isosorbide Mononitrate (Imdur) 60 mg PO QHS [facility] Last Admin: 04/10/18 21:49 Dose: 60 mg Levothyroxine Sodium (Synthroid) 100 mcg PO DAILY@0600 [facility] Last Admin: 04/11/18 05:29 Dose: 100 mcg Lisinopril (Zestril) 40 mg PO DAILY [facility] Last Admin: 04/11/18 07:46 Dose: 40 mg Magnesium Hydroxide (Milk Of Magnesia) 30 ml PO .PRN X 1 PRN PRN Reason: Constipation Metoprolol Tartrate (Lopressor (Beta Marino)) 12.5 mg PO BID [facility] Last Admin: 04/11/18 07:46 Dose: 12.5 mg Modafinil (Provigil) 200 mg PO DAILY@0600 [facility] Last Admin: 04/11/18 05:28 Dose: 200 mg Nystatin (Mycostatin Powder) 1 applic TOPICAL TID [facility]; Protocol Last Admin: 04/11/18 05:29 Dose: 1 applicatio Senna/Docusate Sodium (Senokot-S, Elisa-Colace) 2 tablet PO BID [facility] Last Admin: 04/11/18 07:17 Dose: Not Given Medical Necessity - Tobacco Use Smoking Status: Never smoker Assessment/Plan All Active Problems (Last Reviewed 03/31/18 @ 11:23 by Panda Ferreira MD) Stroke (Acute) TIA (transient ischemic attack) (Acute) 1. 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 left carotid endarterectomy stable incision is healing well and is clean and dry 3. Hypertension on lisinopril and metoprolol. controlled 4. CAD s/p PCI: on aspirin, statin, metoprolol and imdur 5. Hypothyroidism; on synthroid 6. Diabetes mellitus on ISS andd lantus 30IU qhs Normal dose of Lantus at home is 40 units of Lantus nightly but this was held on admission on account of patient not eating well.\ was increased to 30 units nightly as blood sugars were poorly controlled. will increase lispro to 20IU in the morning and 30IU in the afternoons and evenings We will continue monitoring blood sugars. Insulin sliding scale high-dose accuchecks ACHS 7. CKD stage III: Stable 8. UTI: resolved. completed 5 day course of Keflex. DVT prophylaxis: lovenox Code Visit Inpatient E&M: 11500 Subs Hosp L2
--- NOTE | 2018-04-11 14:21 | PN_ITS ---
Subjective: Patient seen and examined. Feels well and has no complaints. Review of systems otherwise negative. Labs and vitals reviewed. Was started on Lexapro per Neurology on account of labile mood. Vitals/I&O's: Vital Signs Temp Pulse Resp BP Pulse Ox 98.4 F 58 L 18 140/61 H 96 04/11/18 07:41 04/11/18 07:46 04/11/18 07:41 04/11/18 07:41 04/11/18 07:41 Oxygen Delivery Method Room Air Weight: 169 lb 15.622 oz Body Mass Index (BMI) 36.5 Finger Stick Blood Glucose 134 Intake and Output for Last 24 Hours 04/09/18 04/10/18 04/11/18 23:59 23:59 23:59 Intake Total 460 / 460 360 / 360 420 / 420 Output Total 500 / 500 850 / 850 550 / 550 Balance -40 / -40 -490 / -490 -130 / -130 General: Alert, Oriented x3, Cooperative, No apparent distress HEENT: Atraumatic, PERRLA, EOMI, Normocephalic Oral: Moist Mucosa Neck: Supple, No JVD, Negative Carotid Bruits Lungs: Clear to auscultation, Normal air movement, No rhonchi, No rales Cardiovascular: Regular rate, Regular Rhythm, Normal S1, Normal S2, No murmurs Abdomen: Bowel Sounds Present, Soft, Non Tender, Non-Distended, No Hepato- splenomegaly Extremities: No clubbing, No cyanosis, No edema, Capillary Refill Less than 3 Seconds Skin: No rashes, No breakdown, - - left carotid surgical scar is clean and dry Musculoskeletal: No Tenderness to Palpation of Joints or Extremities Lymphatic: No Cervical, Supraclavicular, or Inguinal Adenopathy Neurological: Cranial nerves II-XII grossly intact, - - left UE hemiplegia Psych/Mental Status: Normal Affect, Appropriate, Alert and oriented to time, place, person, mood and affect Laboratory Results 04/10/18 17:16: POC Glucose 120 H 04/10/18 21:45: POC Glucose 192 H 04/11/18 06:46: POC Glucose 142 H 04/11/18 12:03: POC Glucose 244 H Current Medications Acetaminophen (Tylenol) 650 mg PO Q4H PRN PRN PRN Reason: PAIN Last Admin: 04/11/18 08:46 Dose: 650 mg Aspirin (Ecotrin) 81 mg PO DAILY@0800 [facility] Last Admin: 04/11/18 07:47 Dose: 81 mg Atorvastatin Calcium (Lipitor) 80 mg PO QHS [facility] Last Admin: 04/10/18 21:49 Dose: 80 mg Bisacodyl (Dulcolax) 10 mg RECTAL .PRN X 1 PRN PRN Reason: Constipation Calamine/Phenol (Calmoseptine Ointment) 1 applic TOPICAL BID [facility]; Protocol Last Admin: 04/11/18 08:49 Dose: 1 applicatio Carbamazepine (Tegretol) 100 mg PO DAILY [facility] Last Admin: 04/11/18 07:46 Dose: 100 mg Carbamazepine (Tegretol) 200 mg PO QHS [facility] Last Admin: 04/10/18 21:49 Dose: 200 mg Cholecalciferol (Vitamin D) 1,000 unit PO BID [facility] Last Admin: 04/11/18 07:46 Dose: 1,000 unit Cyanocobalamin (Vitamin B12) 500 mcg PO DAILY [facility] Last Admin: 04/11/18 07:46 Dose: 500 mcg Diazepam (Valium) 5 mg PO DAILY PRN PRN PRN Reason: ANXIETY Enoxaparin Sodium (Lovenox) 40 mg SC DAILY [facility] Last Admin: 04/11/18 07:47 Dose: 40 mg Escitalopram Oxalate (Lexapro) 10 mg PO DAILY [facility] Ferrous Sulfate (Ferrous Sulfate) 325 mg PO 1200 [facility] Last Admin: 04/11/18 12:12 Dose: 325 mg Insulin Glargine (Lantus (Bkc)) 30 units SC QHS [facility] Last Admin: 04/10/18 22:02 Dose: 30 units Insulin Human Lispro (Humalog Kwikpen (Bkc)) 10 unit SC BREAKFAST [facility] Last Admin: 04/11/18 07:45 Dose: 10 units Insulin Human Lispro (Humalog Kwikpen (Bkc)) 20 unit SC DINNER [facility] Last Admin: 04/10/18 17:47 Dose: Not Given Insulin Human Lispro (Humalog Kwikpen (Bkc)) 20 unit SC LUNCH [facility] Last Admin: 04/11/18 12:13 Dose: 20 u Insulin Human Lispro (Humalog Kwikpen (Bkc)) 0 unit SC ACHS [facility]; Protocol Last Admin: 04/11/18 12:13 Dose: 2 u Isosorbide Mononitrate (Imdur) 60 mg PO QHS [facility] Last Admin: 04/10/18 21:49 Dose: 60 mg Levothyroxine Sodium (Synthroid) 100 mcg PO DAILY@0600 [facility] Last Admin: 04/11/18 05:29 Dose: 100 mcg Lisinopril (Zestril) 40 mg PO DAILY [facility] Last Admin: 04/11/18 07:46 Dose: 40 mg Magnesium Hydroxide (Milk Of Magnesia) 30 ml PO .PRN X 1 PRN PRN Reason: Constipation Metoprolol Tartrate (Lopressor (Beta Marino)) 12.5 mg PO BID [facility] Last Admin: 04/11/18 07:46 Dose: 12.5 mg Modafinil (Provigil) 200 mg PO DAILY@0600 [facility] Last Admin: 04/11/18 05:28 Dose: 200 mg Nystatin (Mycostatin Powder) 1 applic TOPICAL TID [facility]; Protocol Last Admin: 04/11/18 05:29 Dose: 1 applicatio Senna/Docusate Sodium (Senokot-S, Elisa-Colace) 2 tablet PO BID [facility] Last Admin: 04/11/18 07:17 Dose: Not Given Medical Necessity - Tobacco Use Smoking Status: Never smoker Assessment/Plan All Active Problems (Last Reviewed 03/31/18 @ 11:23 by Panda Ferreira MD) Stroke (Acute) TIA (transient ischemic attack) (Acute) 1. Debility status post recent right occipital infarct leading to left-sided weakness * stable * on aspirin, plavix and statin * 2. left carotid endarterectomy * stable * incision is healing well and is clean and dry * 3. Hypertension * on lisinopril and metoprolol. * controlled * 4. CAD s/p PCI: on aspirin, statin, metoprolol and imdur 5. Hypothyroidism; on synthroid 6. Diabetes mellitus * on ISS andd lantus 30IU qhs * Normal dose of Lantus at home is 40 units of Lantus nightly but this was held on admission on account of patient not eating well.\ * was increased to 30 units nightly as blood sugars were poorly controlled. * will increase lispro to 20IU in the morning and 30IU in the afternoons and evenings * We will continue monitoring blood sugars. * Insulin sliding scale high-dose * accuchecks ACHS * 7. CKD stage III: Stable 8. UTI: resolved. completed 5 day course of Keflex. DVT prophylaxis: lovenox Code Visit Inpatient E&M: 00738 Subs Hosp L2
[2018-04-11 14:27] VITALS: BMI 36.5
[2018-04-11] MEDS: Escitalopram Oxalate 10 MG Tablet PO (16:02)
[2018-04-11 17:26] LABS: Bedside Glucose 73 mg/dL (70-110)
[2018-04-11 19:37] VITALS: BP 139/51; PULSE 63; RESP 12; TEMP 36.6; O2SAT 98
[2018-04-11] MEDS: carBAMazepine 200 MG Tablet PO (21:45)
[2018-04-11 21:46] VITALS: BP 139/51; PULSE 63
[2018-04-11] MEDS: Atorvastatin Calcium 80 MG Tablet PO (21:47)
[2018-04-11] MEDS: Isosorbide Mononitrate 60 MG Tablet PO (21:48)
[2018-04-11 22:01] LABS: Bedside Glucose 169 mg/dL (70-110)
[2018-04-12 04:26] LABS: Bedside Glucose 149 mg/dL (70-110)
[2018-04-12] MEDS: Levothyroxine 100 MCG Tablet PO (06:36)
[2018-04-12] MEDS: Enoxaparin 40 MG/0.4 ML Syringe SC (06:36)
[2018-04-12] MEDS: Modafinil 200 MG Tablet PO (06:36)
[2018-04-12] MEDS: Nystatin Powder 15gm Bottle 1 APPLIC TOPICAL ×3 (06:38→20:44)
[2018-04-12 07:36] LABS: Bedside Glucose 153 mg/dL (70-110)
[2018-04-12] MEDS: Lisinopril 40 MG Tablet PO (08:08)
[2018-04-12] MEDS: Cyanocobalamin 500 MCG Tablet PO (08:08)
[2018-04-12] MEDS: carBAMazepine 200 MG Tablet 100 MG PO (08:08)
[2018-04-12 08:09] VITALS: BP 134/56; PULSE 60
[2018-04-12] MEDS: Metoprolol Tartrate 25 MG Tablet 12.5 MG PO ×2 (08:09→20:44)
[2018-04-12] MEDS: Escitalopram Oxalate 10 MG Tablet PO (08:09)
[2018-04-12] MEDS: Aspirin E.C. 81 MG Tablet PO (08:09)
[2018-04-12] MEDS: Insulin Lispro 100 UNIT/ML INSULN.PEN 20 UNIT SC (08:10)
[2018-04-12] MEDS: Insulin Lispro 100 UNIT/ML INSULN.PEN SC ×2 (08:10→20:45)
[2018-04-12 08:29] VITALS: BP 134/56; PULSE 60; RESP 16; TEMP 37; O2SAT 95
[2018-04-12] MEDS: Menthol/Lanolin/Calamine/Znox 113 GM Tube 1 APPLIC TOPICAL ×2 (09:30→20:46)
--- NOTE | 2018-04-12 11:25 | NURSING ---
Patient had been assisted off BSC with therapy staff member and x2 nurses. Voided small amount. Patient ambulated approx 12 feet and reported she felt nauseated and her eyes rolled back in her head and she slumped back into the w/c that nurse was following patient with. Thin liquid small amount came out of patients mouth. DECORATING KILN OPERATOR called. Patient unresponsive for a few seconds and placed back in bed x 4 staff members and patient then opened eyes but lethargic and patient had moist respirations. Patient able to respond appropriately, new orders received from during DECORATING KILN OPERATOR. VS 136/69- 68-16- 98% 5 L oxygen via NC- 97.8O. Radiology called to do CXR. Patient denied SOB. aware.
--- NOTE | 2018-04-12 11:39 | RAD_ITS ---
STUDY: X-RAY CHEST REASON FOR EXAM: Female, 72 years old. Shortness of breath/dyspnea. TECHNIQUE: Single AP portable view of the chest. COMPARISON: Comparison is made with prior study dated December 24, 2017. FINDINGS: Azygos lobe. This is a normal variant. Calcified granulomas. There is no demonstrated pleural abnormality. There is mild cardiac enlargement. Normal mediastinum and joshua. Normal visualized pulmonary arteries. There is atherosclerotic calcification of the aortic arch with tortuosity. There are diffuse degenerative changes of the visualized thoracic spine. Dextroscoliosis. Normal visualized ribs, clavicles, and shoulders. There is no demonstrated abnormality of the visualized soft tissue structures of the upper abdomen. RAD/Chest 1 View (Portable) IMPRESSION: Mild cardiomegaly. The lungs are clear. Electronically Signed: Amandeep Dawkins MD at 12:37 EST , Service support ,
--- NOTE | 2018-04-12 11:42 | EKG12_ITS ---
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 Rate : 054 BPM Atrial Rate : 054 BPM P-R Int : 168 ms QRS Dur : 110 ms QT Int : 434 ms P-R-T Axes : 059 -38 066 degrees QTc Int : 411 ms Sinus bradycardia with sinus arrhythmia Left axis deviation Voltage criteria for left ventricular hypertrophy Nonspecific ST and T wave abnormality Poor R wave progression Abnormal ECG Confirmed by RJ RUIZ, LORENE ([id number]), international editorial producer MAYURI CADE ([id number] on 04/13/2018 10:30:01 AM Referred By: Panda Ferreira Confirmed By:LORENE DE LA ROSA MD
[2018-04-12 11:46] LABS: Bedside Glucose 155 mg/dL (70-110)
--- NOTE | 2018-04-12 12:35 | PCM.PN.NEU ---
Subjective: The patient had an episode of loss of consciousness brief, an DAYLIGHT DRILLER was called, she regained consciousness quickly and her only complaint was that she needed to have a bowel movement. She did not remember losing consciousness. She felt fine otherwise afterward. Blood pressure and vital signs were okay at the DAYLIGHT DRILLER. - Physical Exam General: Alert, Oriented x3, Cooperative HEENT: PERRLILLIE, EOMI Neurological: Cranial nerves II-XII grossly intact, - - Left hemiparesis, stable Vital Signs Temp Pulse Resp BP Pulse Ox 37.0 C 60 16 134/56 H 95 04/12/18 08:29 04/12/18 08:29 04/12/18 08:29 04/12/18 08:29 04/12/18 08:29 Oxygen Delivery Method Room Air Weight: 77.1 kg Body Mass Index (BMI) 36.5 Finger Stick Blood Glucose 134 Intake and Output for Last 24 Hours 04/10/18 04/11/18 04/12/18 23:59 23:59 23:59 Intake Total 360 / 360 1120 / 1120 Output Total 850 / 850 1050 / 1050 425 / 425 Balance -490 / -490 70 / 70 -425 / -425 POC Glucose 04/12/18 04/12/18 04/12/18 11:23 06:35 04:20 POC Glucose 155 H 153 H 149 H 04/11/18 04/11/18 21:43 17:11 POC Glucose 169 H 73 Medical Necessity - Tobacco Use Smoking Status: Never smoker Assessment/Plan All Active Problems (Last Reviewed 03/31/18 @ 11:23 by Panda Ferreira MD) Stroke (Acute) TIA (transient ischemic attack) (Acute) Debility status post right MCA distribution infarct as well as left MCA distribution infarct. She is status post left ICA CEA on 03/24/18 and was previously functionally independent. Goal is judaism of prior level of functional independence. This is complicated by her debility due to her right MCA distribution stroke and smaller left MCA distribution stroke. Plan: Physical therapy for gait and balance 04/11: Stable/improved Occupational Therapy for ADLs 04/11: Stable/improved Speech therapy: Currently n.p.o. awaiting reevaluation. 04/04: Now on mechanical soft. 04/08: Stable/improved Hypertension: Continue antihypertensives. Blood pressure is actually been somewhat low will hold her Coreg if her systolic is less than 120 Stroke status post CEA: Continue aspirin, Plavix, blood pressure control, statin therapy. We will need to verify testing from the [facility] including echocardiogram given that this is a bilateral infarct as well as supposedly a TCD embolic study. Diabetes: Insulin therapy, monitor Accu-Cheks. 04/08: Stable/controlled Bowel protocol DVT prophylaxis: Lovenox History of meningioma: Status post gamma knife therapy in 2017, this appears to be stable History of trigeminal neuralgia: On Tegretol 100/200. Will continue but will check Tegretol level. 04/11: Stable, asymptomatic Hypersomnia: This is likely post stroke. This should improve but will check Tegretol level and labs. 04/11: Stable An DAYLIGHT DRILLER was called, workup is pending however at this point she appears very stable. Plan for discharge 04/21
[2018-04-12] MEDS: 0.9% Normal Saline 1,000 ML 75 ML IV (12:50)
[2018-04-12 13:13] VITALS: O2SAT 96
--- NOTE | 2018-04-12 13:45 | NURSING ---
No insulin given, patient refused to eat lunch and bs prior to lunch was 155. Dr. Corcoran notified. Patient resting in bed, cooperative with ST who is currently in room. No complaints voiced.
[2018-04-12 15:22] VITALS: BMI 36.5
--- NOTE | 2018-04-12 17:47 | NURSING ---
Lungs clear but diminished throughout. No further complaints today. IVF infusing per order to right AC after left AC infiltrated and another RN performed placement. No moist respirations noted as heard earlier. No sob but patient tried on RA and 90% so oxygen is at 2 L per minute. at bedside. Will continue to monitor.
[2018-04-12] MEDS: 0.9% NaCl Peripheral Flush Adult/Peds IV ×2 (17:56→19:28)
[2018-04-12] MEDS: Ondansetron 4 MG/2 ML Vial IV (17:56)
[2018-04-12 18:06] LABS: Bedside Glucose 70 mg/dL (70-110)
--- NOTE | 2018-04-12 18:36 | NURSING ---
Supper insulin held per Dr. Corcoran order due to blood sugar 70 and patient ate poor for supper. Asymptomatic.
--- NOTE | 2018-04-12 18:39 | PCM.PN.HOSP ---
Subjective: Patient was seen and examined. There was a rapid response this morning when patient was done using the bedside commode, was being walked down the hallway, complained of nausea and subsequently slumped down into her wheel chair and unresponsive for a few minutes. \ Vitals were stable. Blood sugar was 155. Patient came around easily. She sounded very rhonchorous. Unclear if she had aspirated. Chest x-ray with requested showed mild cardiomegaly but no acute cardiopulmonary process. She complained of feeling nauseous. Was medicated with Zofran several times during the day. Her blood sugars have been running low today. Blood sugar 6 PM was 70. Denied any chest pain or dizziness or palpitations. Objective: General: Alert, Oriented x3, Cooperative, No apparent distress HEENT: Atraumatic, PERRLA, EOMI, Normocephalic Oral: Moist Mucosa Neck: Supple, No JVD, Negative Carotid Bruits Lungs: Clear to auscultation, Normal air movement, No rhonchi, No rales Cardiovascular: Regular rate, Regular Rhythm, Normal S1, Normal S2, No murmurs Abdomen: Bowel Sounds Present, Soft, Non Tender, Non-Distended, No Hepato-splenomegaly Extremities: No clubbing, No cyanosis, No edema, Capillary Refill Less than 3 Seconds Skin: No rashes, No breakdown, - - left carotid surgical scar is clean and dry Musculoskeletal: No Tenderness to Palpation of Joints or Extremities Lymphatic: No Cervical, Supraclavicular, or Inguinal Adenopathy Neurological: Cranial nerves II-XII grossly intact, - - left UE hemiplegia Psych/Mental Status: Normal Affect, Appropriate, Alert and oriented to time, place, person, mood and affect Vitals/I&O's: Vital Signs Temp Pulse Resp BP Pulse Ox 98.6 F 60 16 134/56 H 96 04/12/18 08:29 04/12/18 08:29 04/12/18 08:29 04/12/18 08:29 04/12/18 13:13 Oxygen Flow Rate (L/min) 4 Oxygen Delivery Method Nasal Cannula Weight: 77.1 kg Body Mass Index (BMI) 36.5 Finger Stick Blood Glucose 134 Intake and Output for Last 24 Hours 04/10/18 04/11/18 04/12/18 23:59 23:59 23:59 Intake Total 360 / 360 1120 / 1120 1030 / 1030 Output Total 850 / 850 1050 / 1050 875 / 875 Balance -490 / -490 70 / 70 155 / 155 Laboratory Results 04/11/18 21:43: POC Glucose 169 H 04/12/18 04:20: POC Glucose 149 H 04/12/18 06:35: POC Glucose 153 H 04/12/18 11:23: POC Glucose 155 H 04/12/18 17:54: POC Glucose 70 Current Medications Acetaminophen (Tylenol) 650 mg PO Q4H PRN PRN PRN Reason: PAIN Last Admin: 04/11/18 08:46 Dose: 650 mg Albuterol Sulfate (Ventolin Aerosols) 2.5 mg INHALATION Q2H PRN PRN PRN Reason: SOB &/OR WHEEZING Albuterol/Ipratropium (Duoneb) 3 ml INHALATION Q4HWA.RT [facility] Aspirin (Ecotrin) 81 mg PO DAILY@0800 [facility] Last Admin: 04/12/18 08:09 Dose: 81 mg Atorvastatin Calcium (Lipitor) 80 mg PO QHS [facility] Last Admin: 04/11/18 21:47 Dose: 80 mg Bisacodyl (Dulcolax) 10 mg RECTAL .PRN X 1 PRN PRN Reason: Constipation Calamine/Phenol (Calmoseptine Ointment) 1 applic TOPICAL BID [facility]; Protocol Last Admin: 04/12/18 09:30 Dose: 1 applicatio Carbamazepine (Tegretol) 100 mg PO DAILY [facility] Last Admin: 04/12/18 08:08 Dose: 100 mg Carbamazepine (Tegretol) 200 mg PO QHS [facility] Last Admin: 04/11/18 21:45 Dose: 200 mg Cholecalciferol (Vitamin D) 1,000 unit PO BID [facility] Last Admin: 04/12/18 08:08 Dose: 1,000 unit Cyanocobalamin (Vitamin B12) 500 mcg PO DAILY [facility] Last Admin: 04/12/18 08:08 Dose: 500 mcg Diazepam (Valium) 5 mg PO DAILY PRN PRN PRN Reason: ANXIETY Enoxaparin Sodium (Lovenox) 40 mg SC DAILY@0600 [facility] Last Admin: 04/12/18 06:36 Dose: 40 mg Escitalopram Oxalate (Lexapro) 10 mg PO DAILY [facility] Last Admin: 04/12/18 08:09 Dose: 10 mg Ferrous Sulfate (Ferrous Sulfate) 325 mg PO 1200 [facility] Last Admin: 04/12/18 12:13 Dose: Not Given Sodium Chloride () 1,000 mls @ 75 mls/hr IV .[id number] [facility] Stop: 04/13/18 01:14 Last Admin: 04/12/18 12:50 Dose: 75 mls/hr Insulin Glargine (Lantus (Bkc)) 30 units SC QHS [facility] Last Admin: 04/11/18 21:47 Dose: 30 units Insulin Human Lispro (Humalog Kwikpen (Bkc)) 0 unit SC ACHS [facility]; Protocol Last Admin: 04/12/18 18:00 Dose: Not Given Insulin Human Lispro (Humalog Kwikpen (Bkc)) 20 unit SC BREAKFAST [facility] Last Admin: 04/12/18 08:10 Dose: 20 u Insulin Human Lispro (Humalog Kwikpen (Bkc)) 30 unit SC DINNER [facility] Last Admin: 04/12/18 18:36 Dose: Not Given Insulin Human Lispro (Humalog Kwikpen (Bkc)) 30 unit SC LUNCH [facility] Last Admin: 04/12/18 14:34 Dose: Not Given Isosorbide Mononitrate (Imdur) 60 mg PO QHS [facility] Last Admin: 04/11/18 21:48 Dose: 60 mg Levothyroxine Sodium (Synthroid) 100 mcg PO DAILY@0600 [facility] Last Admin: 04/12/18 06:36 Dose: 100 mcg Lisinopril (Zestril) 40 mg PO DAILY [facility] Last Admin: 04/12/18 08:08 Dose: 40 mg Magnesium Hydroxide (Milk Of Magnesia) 30 ml PO .PRN X 1 PRN PRN Reason: Constipation Metoprolol Tartrate (Lopressor (Beta Marino)) 12.5 mg PO BID [facility] Last Admin: 04/12/18 08:09 Dose: 12.5 mg Modafinil (Provigil) 200 mg PO DAILY@0600 [facility] Last Admin: 04/12/18 06:36 Dose: 200 mg Nystatin (Mycostatin Powder) 1 applic TOPICAL TID [facility]; Protocol Last Admin: 04/12/18 15:20 Dose: 1 applicatio Ondansetron HCl (Zofran) 4 mg IV Q6H PRN PRN PRN Reason: NAUSEA/VOMITING Last Admin: 04/12/18 17:56 Dose: 4 mg Senna/Docusate Sodium (Senokot-S, Elisa-Colace) 2 tablet PO BID [facility] Last Admin: 04/12/18 08:10 Dose: Not Given Sodium Chloride () 5 - 15 ml IV UD PRN PRN Reason: SALINE FLUSH Last Admin: 04/12/18 17:56 Dose: 10 ml Medical Necessity - Tobacco Use Smoking Status: Never smoker Assessment/Plan All Active Problems (Last Reviewed 03/31/18 @ 11:23 by Panda Ferreira MD) Stroke (Acute) TIA (transient ischemic attack) (Acute) 72-year-old female with past medical history of hypertension, diabetes, CAD status post PCI, history of meningioma, history of TIA, status post left carotid endarterectomy, complicated by acute right posterior parietal and occipital infarct, tiny infarcts in left MCA territory with left hemiplegia admitted to the inpatient rehab for therapy. 1. Episode of unresponsiveness, status post rapid response, likely vasovagal, stable vitals, continue to monitor 2. Nausea with vomiting, unclear etiology, suspect ileus, will get abdominal KUB, labs in a.m. 3. Type II DM, patient is on Lantus with pre-meal lispro as well as sliding scale, blood sugars are erratic, running slightly low, will hold p.m. Lantus, reevaluate in a.m., if better will resume insulin. 4. Debility status post recent right posterior parietal and occipital infarct, tiny infarcts in left MCA territory with left hemiplegia 5. Hypertension, controlled, continue on Lisinopril and metoprolol 6. Recent left carotid endarterectomy/CAD s/p PCI, aspirin, statin, lisinopril, beta-marino 7. Hypothyroidism 9. Seizure disorder, history of meningioma, on carbamazepine, will continue to monitor for seizures 10. DVT PPx- Lovenox SC Code Visit Inpatient E&M: 80441 Subs Hosp L2
--- NOTE | 2018-04-12 18:47 | PN_ITS ---
Subjective: Patient was seen and examined. There was a rapid response this morning when patient was done using the bedside commode, was being walked down the hallway, complained of nausea and subsequently slumped down into her wheel chair and unresponsive for a few minutes. \ Vitals were stable. Blood sugar was 155. Patient came around easily. She sounded very rhonchorous. Unclear if she had aspirated. Chest x-ray with requested showed mild cardiomegaly but no acute cardiopulmonary process. She complained of feeling nauseous. Was medicated with Zofran several times during the day. Her blood sugars have been running low today. Blood sugar 6 PM was 70. Denied any chest pain or dizziness or palpitations. Objective: General: Alert, Oriented x3, Cooperative, No apparent distress HEENT: Atraumatic, PERRLA, EOMI, Normocephalic Oral: Moist Mucosa Neck: Supple, No JVD, Negative Carotid Bruits Lungs: Clear to auscultation, Normal air movement, No rhonchi, No rales Cardiovascular: Regular rate, Regular Rhythm, Normal S1, Normal S2, No murmurs Abdomen: Bowel Sounds Present, Soft, Non Tender, Non-Distended, No Hepato- splenomegaly Extremities: No clubbing, No cyanosis, No edema, Capillary Refill Less than 3 Seconds Skin: No rashes, No breakdown, - - left carotid surgical scar is clean and dry Musculoskeletal: No Tenderness to Palpation of Joints or Extremities Lymphatic: No Cervical, Supraclavicular, or Inguinal Adenopathy Neurological: Cranial nerves II-XII grossly intact, - - left UE hemiplegia Psych/Mental Status: Normal Affect, Appropriate, Alert and oriented to time, place, person, mood and affect Vitals/I&O's: Vital Signs Temp Pulse Resp BP Pulse Ox 98.6 F 60 16 134/56 H 96 04/12/18 08:29 04/12/18 08:29 04/12/18 08:29 04/12/18 08:29 04/12/18 13:13 Oxygen Flow Rate (L/min) 4 Oxygen Delivery Method Nasal Cannula Weight: 77.1 kg Body Mass Index (BMI) 36.5 Finger Stick Blood Glucose 134 Intake and Output for Last 24 Hours 04/10/18 04/11/18 04/12/18 23:59 23:59 23:59 Intake Total 360 / 360 1120 / 1120 1030 / 1030 Output Total 850 / 850 1050 / 1050 875 / 875 Balance -490 / -490 70 / 70 155 / 155 Laboratory Results 04/11/18 21:43: POC Glucose 169 H 04/12/18 04:20: POC Glucose 149 H 04/12/18 06:35: POC Glucose 153 H 04/12/18 11:23: POC Glucose 155 H 04/12/18 17:54: POC Glucose 70 Current Medications Acetaminophen (Tylenol) 650 mg PO Q4H PRN PRN PRN Reason: PAIN Last Admin: 04/11/18 08:46 Dose: 650 mg Albuterol Sulfate (Ventolin Aerosols) 2.5 mg INHALATION Q2H PRN PRN PRN Reason: SOB &/OR WHEEZING Albuterol/Ipratropium (Duoneb) 3 ml INHALATION Q4HWA.RT [facility] Aspirin (Ecotrin) 81 mg PO DAILY@0800 [facility] Last Admin: 04/12/18 08:09 Dose: 81 mg Atorvastatin Calcium (Lipitor) 80 mg PO QHS [facility] Last Admin: 04/11/18 21:47 Dose: 80 mg Bisacodyl (Dulcolax) 10 mg RECTAL .PRN X 1 PRN PRN Reason: Constipation Calamine/Phenol (Calmoseptine Ointment) 1 applic TOPICAL BID [facility]; Protocol Last Admin: 04/12/18 09:30 Dose: 1 applicatio Carbamazepine (Tegretol) 100 mg PO DAILY [facility] Last Admin: 04/12/18 08:08 Dose: 100 mg Carbamazepine (Tegretol) 200 mg PO QHS [facility] Last Admin: 04/11/18 21:45 Dose: 200 mg Cholecalciferol (Vitamin D) 1,000 unit PO BID [facility] Last Admin: 04/12/18 08:08 Dose: 1,000 unit Cyanocobalamin (Vitamin B12) 500 mcg PO DAILY [facility] Last Admin: 04/12/18 08:08 Dose: 500 mcg Diazepam (Valium) 5 mg PO DAILY PRN PRN PRN Reason: ANXIETY Enoxaparin Sodium (Lovenox) 40 mg SC DAILY@0600 [facility] Last Admin: 04/12/18 06:36 Dose: 40 mg Escitalopram Oxalate (Lexapro) 10 mg PO DAILY [facility] Last Admin: 04/12/18 08:09 Dose: 10 mg Ferrous Sulfate (Ferrous Sulfate) 325 mg PO 1200 [facility] Last Admin: 04/12/18 12:13 Dose: Not Given Sodium Chloride () 1,000 mls @ 75 mls/hr IV .[id number] [facility] Stop: 04/13/18 01:14 Last Admin: 04/12/18 12:50 Dose: 75 mls/hr Insulin Glargine (Lantus (Bkc)) 30 units SC QHS [facility] Last Admin: 04/11/18 21:47 Dose: 30 units Insulin Human Lispro (Humalog Kwikpen (Bkc)) 0 unit SC ACHS [facility]; Protocol Last Admin: 04/12/18 18:00 Dose: Not Given Insulin Human Lispro (Humalog Kwikpen (Bkc)) 20 unit SC BREAKFAST [facility] Last Admin: 04/12/18 08:10 Dose: 20 u Insulin Human Lispro (Humalog Kwikpen (Bkc)) 30 unit SC DINNER [facility] Last Admin: 04/12/18 18:36 Dose: Not Given Insulin Human Lispro (Humalog Kwikpen (Bkc)) 30 unit SC LUNCH [facility] Last Admin: 04/12/18 14:34 Dose: Not Given Isosorbide Mononitrate (Imdur) 60 mg PO QHS [facility] Last Admin: 04/11/18 21:48 Dose: 60 mg Levothyroxine Sodium (Synthroid) 100 mcg PO DAILY@0600 [facility] Last Admin: 04/12/18 06:36 Dose: 100 mcg Lisinopril (Zestril) 40 mg PO DAILY [facility] Last Admin: 04/12/18 08:08 Dose: 40 mg Magnesium Hydroxide (Milk Of Magnesia) 30 ml PO .PRN X 1 PRN PRN Reason: Constipation Metoprolol Tartrate (Lopressor (Beta Marino)) 12.5 mg PO BID [facility] Last Admin: 04/12/18 08:09 Dose: 12.5 mg Modafinil (Provigil) 200 mg PO DAILY@0600 [facility] Last Admin: 04/12/18 06:36 Dose: 200 mg Nystatin (Mycostatin Powder) 1 applic TOPICAL TID [facility]; Protocol Last Admin: 04/12/18 15:20 Dose: 1 applicatio Ondansetron HCl (Zofran) 4 mg IV Q6H PRN PRN PRN Reason: NAUSEA/VOMITING Last Admin: 04/12/18 17:56 Dose: 4 mg Senna/Docusate Sodium (Senokot-S, Elisa-Colace) 2 tablet PO BID [facility] Last Admin: 04/12/18 08:10 Dose: Not Given Sodium Chloride () 5 - 15 ml IV UD PRN PRN Reason: SALINE FLUSH Last Admin: 04/12/18 17:56 Dose: 10 ml Medical Necessity - Tobacco Use Smoking Status: Never smoker Assessment/Plan All Active Problems (Last Reviewed 03/31/18 @ 11:23 by Panda Ferreira MD) Stroke (Acute) TIA (transient ischemic attack) (Acute) 72-year-old female with past medical history of hypertension, diabetes, CAD status post PCI, history of meningioma, history of TIA, status post left carotid endarterectomy, complicated by acute right posterior parietal and occipital infarct, tiny infarcts in left MCA territory with left hemiplegia admitted to the inpatient rehab for therapy. 1. Episode of unresponsiveness, status post rapid response, likely vasovagal, stable vitals, continue to monitor 2. Nausea with vomiting, unclear etiology, suspect ileus, will get abdominal KUB, labs in a.m. 3. Type II DM, patient is on Lantus with pre-meal lispro as well as sliding scale, blood sugars are erratic, running slightly low, will hold p.m. Lantus, reevaluate in a.m., if better will resume insulin. 4. Debility status post recent right posterior parietal and occipital infarct, tiny infarcts in left MCA territory with left hemiplegia 5. Hypertension, controlled, continue on Lisinopril and metoprolol 6. Recent left carotid endarterectomy/CAD s/p PCI, aspirin, statin, lisinopril, beta-marino 7. Hypothyroidism 9. Seizure disorder, history of meningioma, on carbamazepine, will continue to monitor for seizures 10. DVT PPx- Lovenox SC Code Visit Inpatient E&M: 86677 Subs Hosp L2
--- NOTE | 2018-04-12 19:00 | RAD_ITS ---
STUDY: X-RAY - ABDOMEN/PELVIS REASON FOR EXAM: Female, 72 years old. Nausea, vomiting, abdominal and back pain. TECHNIQUE: Two AP supine views of the abdomen and pelvis. COMPARISON: None. FINDINGS: Normal visualized lung bases. There is an unremarkable bowel gas pattern. There is no demonstrated free abdominal air. The visualized liver, spleen and kidneys are grossly normal in size and morphology. Clusters of surgical clips are seen to either side of the low abdomen/pelvis, and there is an additional metal surgical clip in the right lower quadrant. There are diffuse degenerative changes of the visualized spine. Mild degenerative changes also at the sacroiliac joints and hips, with moderate degenerative narrowing at the pubic symphysis. RAD/Abdomen Single View (Portable) IMPRESSION: Post surgical changes in the low abdomen/pelvis. Nonspecific bowel gas pattern. No free gas. Electronically Signed: Tra Mitchell MD at 19:21 EST , Service support ,
[2018-04-12 19:50] VITALS: BP 143/90; PULSE 60; RESP 18; TEMP 36.8; O2SAT 93
[2018-04-12 20:38] VITALS: PULSE 62; O2SAT 99
[2018-04-12] MEDS: Senna/Docusate Sodium 1 Tablet 2 TABLET PO (20:43)
[2018-04-12] MEDS: carBAMazepine 200 MG Tablet PO (20:43)
[2018-04-12 20:44] VITALS: BP 143/90; PULSE 62
[2018-04-12] MEDS: Atorvastatin Calcium 80 MG Tablet PO (20:45)
[2018-04-12] MEDS: Isosorbide Mononitrate 60 MG Tablet PO (20:45)
[2018-04-12 22:01] LABS: Bedside Glucose 188 mg/dL (70-110)
[2018-04-13] MEDS: 0.9% NaCl Peripheral Flush Adult/Peds IV (02:14)
[2018-04-13 05:00] VITALS: BMI 36.5
[2018-04-13] MEDS: Levothyroxine 100 MCG Tablet PO (05:45)
[2018-04-13] MEDS: Modafinil 200 MG Tablet PO (05:45)
[2018-04-13] MEDS: Nystatin Powder 15gm Bottle 1 APPLIC TOPICAL ×3 (05:45→21:08)
[2018-04-13] MEDS: Enoxaparin 40 MG/0.4 ML Syringe SC (05:45)
[2018-04-13 06:02] LABS: Anion Gap 12 (5-15); BUN 24 mg/dL (7-18); Calcium,Total 8.3 mg/dL (8.5-10.1); Chloride 108 mmol/L (98-107); Creatinine, Serum 1.26 mg/dL (0.55-1.02); EST Glomerular Filtration Rate 44 mL/min (>60); Est Glom Filt Rate - Afr Amer 53 mL/min (>60); Estimated Creatinine Clearance 28.14 ml/min; Glucose 181 mg/dL (74-106); Sodium Level 145 mmol/L (136-145)
[2018-04-13 06:37] LABS: Absolute Lymphocyte Count 1.23 X10^3/ul (0.83-4.51); Absolute Neutrophil Count 7.9 X10^3/uL (2.0-7.7); Basophil# 0.02 X10^3/uL; Basophil% 0.2 % (0-1); Eosinophil# 0.18 X10^3/uL; Eosinophils% 1.8 % (0-5); Hematocrit 32.8 % (37-47); Hemoglobin 10.3 g/dl (12.0-15.0); Lymphocyte # 1.23 X10^3/ul (4.0); Lymphocyte % 12.4 % (19-41); Mean Corp Hgb Conc 31.4 g/gl (32-36); Mean Corpuscular Hgb 32.5 pg (27.0-32.0); Mean Corpuscular Volume 103.5 fL (81-99); Mean Platelet Vol. 11.1 fl (6.2-12.0); Monocyte# 0.61 X10^3/uL; Monocyte% 6.2 % (0-10); Neutrophil # 7.85 X10^3/uL (2.7-7.7); Neutrophil % 79.2 % (47-70); Platelet Count 239 K/mm3 (150-450); RBC Distribution Width CV 15.8 % (11.6-14.6); RBC Distribution Width SD 57.4 fl (35.1-43.9); Red Blood Count 3.17 M/mm3 (4.2-5.4); White Blood Count 9.9 K/mm3 (4.4-11.0)
[2018-04-13 06:40] LABS: POSITIVE COUNT NO; POSITIVE DIFFERENTIAL NO; POSITIVE MORPHOLOGY NO
[2018-04-13 07:16] LABS: Bedside Glucose 190 mg/dL (70-110)
[2018-04-13] MEDS: Acetaminophen 325 MG Tablet 650 MG PO ×2 (08:26→21:15)
[2018-04-13] MEDS: Cyanocobalamin 500 MCG Tablet PO (08:26)
[2018-04-13] MEDS: Escitalopram Oxalate 10 MG Tablet PO (08:26)
[2018-04-13] MEDS: Aspirin E.C. 81 MG Tablet PO (08:26)
[2018-04-13] MEDS: carBAMazepine 200 MG Tablet 100 MG PO (08:28)
[2018-04-13] MEDS: Insulin Lispro 100 UNIT/ML INSULN.PEN 20 UNIT SC (08:30)
[2018-04-13] MEDS: Insulin Lispro 100 UNIT/ML INSULN.PEN SC ×2 (08:31→21:12)
[2018-04-13 09:00] VITALS: BP 92/48; PULSE 60; RESP 16; TEMP 36.8; O2SAT 99
[2018-04-13] MEDS: Menthol/Lanolin/Calamine/Znox 113 GM Tube 1 APPLIC TOPICAL ×2 (09:05→21:03)
[2018-04-13] MEDS: Ondansetron 4 MG/2 ML Vial IV (09:24)
--- NOTE | 2018-04-13 10:30 | NURSING ---
Dr. Corcoran aware of labs and patient with c/o nausea with small emesis this morning. Patient unable to finish OT session this morning due to stating she is sick and cannot do anymore therapy. Patient ate good for breakfast. Alert and oriented with anxiety and periods of confusion with reminders and cues given by staff. BP low this AM and Dr. Corcoran approved of holding BP meds.
[2018-04-13] MEDS: 0.9% Normal Saline 1,000 ML 100 ML IV ×2 (10:52→20:58)
[2018-04-13 10:55] VITALS: PULSE 63
[2018-04-13 11:05] VITALS: O2SAT 93
[2018-04-13 12:31] LABS: Bedside Glucose 135 mg/dL (70-110)
[2018-04-13] MEDS: Ipratropium/Albuterol Sulfate 3 ML AMPUL.NEB INHALATION ×2 (14:43→14:53)
[2018-04-13 14:45] VITALS: PULSE 63; RESP 16
--- NOTE | 2018-04-13 16:53 | PCM.PN.HOSP ---
Subjective: Patient was seen and examined. She had episodes of nausea today. Started on IV fluids. Blood sugars were relatively low. Denied any dizziness or vomiting or abdominal discomfort. Had a bowel movement 2 days ago. Vitals/I&O's: Vital Signs Temp Pulse Resp BP Pulse Ox 98.2 F 63 16 92/48 L 93 04/13/18 09:00 04/13/18 14:45 04/13/18 14:45 04/13/18 09:00 04/13/18 11:05 Oxygen Flow Rate (L/min) 2 Oxygen Delivery Method Room Air Weight: 77.292 kg Body Mass Index (BMI) 36.5 Finger Stick Blood Glucose 134 Intake and Output for Last 24 Hours 04/11/18 04/12/18 04/13/18 23:59 23:59 23:59 Intake Total 1120 / 1120 1030 / 1030 1054 / 1054 Output Total 1050 / 1050 1025 / 1025 0 / 0 Balance 70 / 70 5 / 5 1054 / 1054 General: Alert, Oriented x3, Cooperative, No apparent distress HEENT: Atraumatic, PERRLA, EOMI, Normocephalic Oral: Moist Mucosa Neck: Supple, No JVD, Negative Carotid Bruits Lungs: Clear to auscultation, Normal air movement Cardiovascular: Regular rate, Regular Rhythm, Normal S1, Normal S2, No murmurs Abdomen: Bowel Sounds Present, Soft, Non Tender, Non-Distended, No Hepato-splenomegaly Extremities: No edema Skin: No rashes, No breakdown Musculoskeletal: No Tenderness to Palpation of Joints or Extremities Lymphatic: No Cervical, Supraclavicular, or Inguinal Adenopathy Neurological: Motor Exam 5/5 strength throughout - Left-sided hemiplegia Psych/Mental Status: Normal Affect, Appropriate Laboratory Results 04/12/18 17:54: POC Glucose 70 04/12/18 20:37: POC Glucose 188 H 04/13/18 05:35: WBC 9.9, RBC 3.17 L, Hgb 10.3 L, Hct 32.8 L, MCV 103.5 H, MCH 32.5 H, MCHC 31.4 L, RDW 15.8 H, RDW Differential 57.4 H, Plt Count 239, MPV 11.1, Immature Gran % (Auto) 0.200, Neut % (Auto) 79.2 H, Lymph % (Auto) 12.4 L, [place] % (Auto) 6.2, Eos % (Auto) 1.8, Baso % (Auto) 0.2, Absolute Neuts (auto) 7.9 H, Absolute Lymphs (auto) 1.23, Total Counted Not Reportable 04/13/18 05:35: Sodium 145, Potassium 5.0, Chloride 108 H, Carbon Dioxide 25.0, Anion Gap 12, BUN 24 H, Creatinine 1.26 H, Estim Creat Clear Calc 28.14, Est GFR (MDRD) Af Amer 53 L, Est GFR (MDRD) Non-Af 44 L, BUN/Creatinine Ratio 19.0, Glucose 181 H, Calcium 8.3 L 04/13/18 07:00: POC Glucose 190 H 04/13/18 11:40: POC Glucose 135 H Current Medications Acetaminophen (Tylenol) 650 mg PO Q4H PRN PRN PRN Reason: PAIN Last Admin: 04/13/18 08:26 Dose: 650 mg Albuterol Sulfate (Ventolin Aerosols) 2.5 mg INHALATION Q2H PRN PRN PRN Reason: SOB &/OR WHEEZING Albuterol/Ipratropium (Duoneb) 3 ml INHALATION Q4HWA.RT [facility] Last Admin: 04/13/18 14:53 Dose: 3 ml Aspirin (Ecotrin) 81 mg PO DAILY@0800 [facility] Last Admin: 04/13/18 08:26 Dose: 81 mg Atorvastatin Calcium (Lipitor) 80 mg PO QHS [facility] Last Admin: 04/12/18 20:45 Dose: 80 mg Bisacodyl (Dulcolax) 10 mg RECTAL .PRN X 1 PRN PRN Reason: Constipation Calamine/Phenol (Calmoseptine Ointment) 1 applic TOPICAL BID [facility]; Protocol Last Admin: 04/13/18 09:05 Dose: 1 applicatio Carbamazepine (Tegretol) 100 mg PO DAILY [facility] Last Admin: 04/13/18 08:28 Dose: 100 mg Carbamazepine (Tegretol) 200 mg PO QHS [facility] Last Admin: 04/12/18 20:43 Dose: 200 mg Cholecalciferol (Vitamin D) 1,000 unit PO BID [facility] Last Admin: 04/13/18 08:26 Dose: 1,000 unit Cyanocobalamin (Vitamin B12) 500 mcg PO DAILY [facility] Last Admin: 04/13/18 08:26 Dose: 500 mcg Diazepam (Valium) 5 mg PO DAILY PRN PRN PRN Reason: ANXIETY Enoxaparin Sodium (Lovenox) 40 mg SC DAILY@0600 [facility] Last Admin: 04/13/18 05:45 Dose: 40 mg Escitalopram Oxalate (Lexapro) 10 mg PO DAILY [facility] Last Admin: 04/13/18 08:26 Dose: 10 mg Ferrous Sulfate (Ferrous Sulfate) 325 mg PO 1200 [facility] Last Admin: 04/13/18 14:40 Dose: Not Given Sodium Chloride () 1,000 mls @ 100 mls/hr IV .Q10H [facility] Stop: 04/14/18 06:29 Last Admin: 04/13/18 10:52 Dose: 100 mls/hr Insulin Glargine (Lantus (Bkc)) 30 units SC QHS [facility] Last Admin: 04/12/18 19:02 Dose: Not Given Insulin Human Lispro (Humalog Kwikpen (Bkc)) 0 unit SC ACHS [facility]; Protocol Last Admin: 04/13/18 14:40 Dose: Not Given Insulin Human Lispro (Humalog Kwikpen (Bkc)) 20 unit SC BREAKFAST [facility] Last Admin: 04/13/18 08:30 Dose: 20 u Insulin Human Lispro (Humalog Kwikpen (Bkc)) 30 unit SC DINNER [facility] Last Admin: 04/12/18 18:36 Dose: Not Given Insulin Human Lispro (Humalog Kwikpen (Bkc)) 30 unit SC LUNCH [facility] Last Admin: 04/13/18 14:40 Dose: Not Given Isosorbide Mononitrate (Imdur) 60 mg PO QHS [facility] Last Admin: 04/12/18 20:45 Dose: 60 mg Levothyroxine Sodium (Synthroid) 100 mcg PO DAILY@0600 [facility] Last Admin: 04/13/18 05:45 Dose: 100 mcg Lisinopril (Zestril) 40 mg PO DAILY [facility] Last Admin: 04/13/18 10:55 Dose: Not Given Magnesium Hydroxide (Milk Of Magnesia) 30 ml PO .PRN X 1 PRN PRN Reason: Constipation Metoprolol Tartrate (Lopressor (Beta Marino)) 12.5 mg PO BID [facility] Last Admin: 04/13/18 10:55 Dose: Not Given Modafinil (Provigil) 200 mg PO DAILY@0600 [facility] Last Admin: 04/13/18 05:45 Dose: 200 mg Nystatin (Mycostatin Powder) 1 applic TOPICAL TID [facility]; Protocol Last Admin: 04/13/18 14:41 Dose: 1 applicatio Ondansetron HCl (Zofran) 4 mg IV Q6H PRN PRN PRN Reason: NAUSEA/VOMITING Last Admin: 04/13/18 09:24 Dose: 4 mg Senna/Docusate Sodium (Senokot-S, Elisa-Colace) 2 tablet PO BID [facility] Last Admin: 04/13/18 14:40 Dose: Not Given Sodium Chloride () 5 - 15 ml IV UD PRN PRN Reason: SALINE FLUSH Last Admin: 04/13/18 02:14 Dose: 10 ml Medical Necessity - Tobacco Use Smoking Status: Never smoker Assessment/Plan All Active Problems (Last Reviewed 03/31/18 @ 11:23 by Panda Ferreira MD) Stroke (Acute) TIA (transient ischemic attack) (Acute) 72-year-old female with past medical history of hypertension, diabetes, CAD status post PCI, history of meningioma, history of TIA, status post left carotid endarterectomy, complicated by acute right posterior parietal and occipital infarct, tiny infarcts in left MCA territory with left hemiplegia admitted to the inpatient rehab for therapy. 1. Episode of unresponsiveness, status post rapid response, likely vasovagal, resolved 2. Nausea with vomiting, unclear etiology, KUB negative for ileus, will continue to monitor 3. Type II DM, sugars are fluctuating, will hold Lantus as well as pre-meal insulin Continue to monitor with Accu-Cheks and insulin sliding scale May resume insulin if blood sugars start to improve. 4. Debility status post recent right posterior parietal and occipital infarct, tiny infarcts in left MCA territory with left hemiplegia 5. Hypertension, controlled, continue on Lisinopril and metoprolol 6. Recent left carotid endarterectomy/CAD s/p PCI, aspirin, statin, lisinopril, beta-marino 7. Hypothyroidism, on levothyroxine 9. Seizure disorder, history of meningioma, on carbamazepine, will continue to monitor for seizures 10. DVT PPx- Lovenox SC Code Visit Inpatient E&M: 57843 Subs Hosp L2
[2018-04-13 17:00] VITALS: BMI 36.5
[2018-04-13 17:41] LABS: Bedside Glucose 190 mg/dL (70-110)
[2018-04-13 18:35] VITALS: BP 147/73; PULSE 62; RESP 18; TEMP 37; O2SAT 93
[2018-04-13] MEDS: carBAMazepine 200 MG Tablet PO (21:08)
[2018-04-13 21:09] VITALS: BP 147/73; PULSE 62
[2018-04-13] MEDS: Metoprolol Tartrate 25 MG Tablet 12.5 MG PO (21:09)
[2018-04-13] MEDS: Atorvastatin Calcium 80 MG Tablet PO (21:10)
[2018-04-13] MEDS: Isosorbide Mononitrate 60 MG Tablet PO (21:11)
[2018-04-13 21:28] VITALS: BMI 36.5
[2018-04-13 22:46] LABS: Bedside Glucose 205 mg/dL (70-110)
[2018-04-14] MEDS: Acetaminophen 325 MG Tablet 650 MG PO (01:18)
[2018-04-14] MEDS: Levothyroxine 100 MCG Tablet PO (04:58)
[2018-04-14] MEDS: Enoxaparin 40 MG/0.4 ML Syringe SC (04:58)
[2018-04-14] MEDS: Nystatin Powder 15gm Bottle 1 APPLIC TOPICAL ×3 (05:00→21:41)
[2018-04-14 05:51] LABS: Absolute Lymphocyte Count 0.98 X10^3/ul (0.83-4.51); Absolute Neutrophil Count 8.5 X10^3/uL (2.0-7.7); Basophil# 0.02 X10^3/uL; Basophil% 0.2 % (0-1); Eosinophil# 0.03 X10^3/uL; Eosinophils% 0.3 % (0-5); Hematocrit 32.4 % (37-47); Hemoglobin 9.9 g/dl (12.0-15.0); Lymphocyte # 0.98 X10^3/ul (4.0); Lymphocyte % 9.6 % (19-41); Mean Corp Hgb Conc 30.6 g/gl (32-36); Mean Corpuscular Hgb 31.9 pg (27.0-32.0); Mean Corpuscular Volume 104.5 fL (81-99); Mean Platelet Vol. 10.5 fl (6.2-12.0); Monocyte# 0.64 X10^3/uL; Monocyte% 6.3 % (0-10); Neutrophil # 8.49 X10^3/uL (2.7-7.7); Neutrophil % 83.4 % (47-70); Platelet Count 177 K/mm3 (150-450); RBC Distribution Width CV 15.8 % (11.6-14.6); RBC Distribution Width SD 58.2 fl (35.1-43.9); White Blood Count 10.2 K/mm3 (4.4-11.0)
[2018-04-14 05:52] LABS: POSITIVE COUNT NO; POSITIVE DIFFERENTIAL NO; POSITIVE MORPHOLOGY NO
[2018-04-14 06:20] LABS: Anion Gap 8 (5-15); BUN 31 mg/dL (7-18); BUN/Creat Ratio 21.4 RATIO (10-20); Chloride 110 mmol/L (98-107); Creatinine, Serum 1.45 mg/dL (0.55-1.02); EST Glomerular Filtration Rate 37 mL/min (>60); Est Glom Filt Rate - Afr Amer 45 mL/min (>60); Estimated Creatinine Clearance 24.45 ml/min; Glucose 242 mg/dL (74-106); Potassium 5.1 mmol/L (3.5-5.1); Sodium Level 143 mmol/L (136-145)
[2018-04-14 06:21] LABS: Bedside Glucose 220 mg/dL (70-110)
[2018-04-14] MEDS: Ondansetron ODT 4 MG Tablet PO (07:01)
[2018-04-14 07:20] VITALS: BP 126/56; PULSE 91; RESP 18; TEMP 37; O2SAT 95
[2018-04-14] MEDS: Insulin Lispro 100 UNIT/ML INSULN.PEN SC ×4 (07:51→21:31)
[2018-04-14] MEDS: Modafinil 200 MG Tablet PO (07:53)
[2018-04-14 09:31] VITALS: PULSE 91
[2018-04-14] MEDS: Aspirin E.C. 81 MG Tablet PO (09:31)
[2018-04-14] MEDS: Escitalopram Oxalate 10 MG Tablet PO (09:31)
[2018-04-14] MEDS: Metoprolol Tartrate 25 MG Tablet 12.5 MG PO (09:31)
[2018-04-14] MEDS: Cyanocobalamin 500 MCG Tablet PO (09:32)
[2018-04-14] MEDS: Senna/Docusate Sodium 1 Tablet 2 TABLET PO ×2 (09:32→21:41)
[2018-04-14] MEDS: carBAMazepine 200 MG Tablet 100 MG PO (09:32)
[2018-04-14] MEDS: Lisinopril 40 MG Tablet PO (09:32)
[2018-04-14] MEDS: Menthol/Lanolin/Calamine/Znox 113 GM Tube 1 APPLIC TOPICAL ×2 (09:35→21:31)
[2018-04-14 10:22] VITALS: BMI 36.5
--- NOTE | 2018-04-14 10:37 | CASEMGMT ---
Social Work Team reporting that patient has been having difficulty maintaining the three hours of therapy every day. Patient suggesting for patient to discharge to a lower level of care. Spoke with patient and patient family. This outreach and education social worker communicating above information. Patient and patient family voicing understanding and agreeable to patient transitioning to a senior care facility. This outreach and education social worker contacting [facility], [facility]. Joi reporting to not have any openings until later in the weekend and team is looking at discharge for 04/15/18. [facility] voicing to have an opening and to be able review patient chart. Clinical information faxed. Pending approval from Giulia at this time. Proposed discharge date: 04/15/18 PLAN: Discharge to SNF - possibly [facility] pending approval. MIKEL Nogueira
--- NOTE | 2018-04-14 12:23 | CASEMGMT ---
Social Work Telephone call from [facility]ul[facility]. Giulia reporting to be able to accept patient on 04/15/18. Spoke with patient and patient family. This social insurance administrator communicating above information, all agreeable to discharge plan and requesting for transportation to be set up via wheelchair van. Support provided. Telephone call to [facility] Transportation set up for 04/15/18 at 1:00pm. Transportation form completed and placed with patient discharge information. Will fax discharge information and PASRR results when obtained. Proposed discharge date: 04/15/18 PLAN: [facility] - Skilled. Frances GONSALEZ, MIKEL
[2018-04-14 12:46] LABS: Bedside Glucose 239 mg/dL (70-110)
--- NOTE | 2018-04-14 13:40 | PCM.TXEXTCAR ---
- Diet 04/01/18 09:51 Diet: Cardiac: Carb-Controlled Food consistency:: Mechanical Soft/Ground Is pt able to select menu?: Yes - Routine Orders/Code Status O2 Liters per Minute: 2 O2 Frequency: PRN Keep PO Greater than or Equal to (%): 92 - Wound(s) left medial neck Wound Type: Surgical Incision left posterior ear Wound Type: scab - Therapies Weight Bearing: Full weight bearing Extremity Affected:: Left Upper Physical Therapy: Eval and Treat - Allergies/Procedures Done in Hospital Allergies/Adverse Reactions: Allergies adhesive tape Allergy (Verified 03/17/18 13:20) Rash Penicillins Allergy (Verified 03/17/18 13:20) Rash - Type of Care/Length of Stay Estimated LOS: More Than 30 Days Type of Care Needed: Skilled Rehab Potential: Good Prognosis: Good - Additional Orders/Day of Discharge H&P will serve as current which was dated: 03/30/18 Day of Discharge: 04/15/18 - Dietary and Speech Recommendations Dietitian Recommendations/Changes: Will d/c [facility]. - Follow Up Care Primary Care Physician: Twan Coy MD [Primary Care Provider] -
[2018-04-14 13:42] VITALS: BP 124/60; PULSE 84; RESP 18; TEMP 36.6; O2SAT 98
[2018-04-14] MEDS: diazePAM 5 MG Tablet PO (13:43)
--- NOTE | 2018-04-14 13:51 | PCM.RU.DC ---
Rehab Discharge Summary DATE OF ADMISSION: 03/30/18 DATE OF DISCHARGE: 04/15/18 - Rehab Diagnosis right mca cva, debility - Physical Exam General: Alert, Oriented x3, Cooperative, No apparent distress HEENT: PERRLA, EOMI Cardiovascular: Regular rate Abdomen: Bowel Sounds Present, Soft, Non Tender, Non-Distended Extremities: No Calf Tenderness Neurological: - - left weakness and neglect, mild/moderate Psych/Mental Status: Flat Affect, Alert and oriented to time, place, person, mood and affect Vital Signs Temp Pulse Resp BP Pulse Ox 37.0 C 91 18 126/56 H 95 04/14/18 07:20 04/14/18 09:31 04/14/18 07:20 04/14/18 07:20 04/14/18 07:20 Oxygen Flow Rate (L/min) 2 Oxygen Delivery Method Room Air Weight: 77.292 kg Body Mass Index (BMI) 36.5 Finger Stick Blood Glucose 134 Intake and Output for Last 24 Hours 04/12/18 04/13/18 04/14/18 23:59 23:59 23:59 Intake Total 1030 / 1030 3622 / 3622 600 / 600 Output Total 1025 / 1025 800 / 800 1580 / 1580 Balance 5 / 5 2822 / 2822 -980 / -980 Laboratory Tests Past 24 Hrs 04/14/18 04/14/18 05:30 05:30 WBC 10.2 RBC 3.10 L Hgb 9.9 L Hct 32.4 L MCV 104.5 H MCH 31.9 MCHC 30.6 L RDW 15.8 H RDW Differential 58.2 H Plt Count 177 MPV 10.5 Immature Gran % (Auto) 0.200 Neut % (Auto) 83.4 H Lymph % (Auto) 9.6 L [place] % (Auto) 6.3 Eos % (Auto) 0.3 Baso % (Auto) 0.2 Absolute Neuts (auto) 8.5 H Absolute Lymphs (auto) 0.98 Total Counted Not Reportable Sodium 143 Potassium 5.1 Chloride 110 H Carbon Dioxide 25.0 Anion Gap 8 BUN 31 H Creatinine 1.45 H Estim Creat Clear Calc 24.45 Est GFR (MDRD) Af Amer 45 L Est GFR (MDRD) Non-Af 37 L BUN/Creatinine Ratio 21.4 H Glucose 242 H Calcium 8.0 L POC Glucose 04/14/18 04/14/18 04/13/18 12:42 06:18 21:05 POC Glucose 239 H 220 H 205 H 04/13/18 17:34 POC Glucose 190 H Discharge Diet: 1800 Calorie Control Diet Discharge Activity: Return to Normal Activity, May Not Drive, Use Walker Weight Bearing Status: Weight bearing as tolerated Lifting Restrict to (lbs):: 10 Home Medications: Medications to take at Discharge Levothyroxine [Synthroid] 100 mcg PO DAILY 09/12/16 Cholecalciferol (Vitamin D3) [Vitamin D3] 1,000 unit PO BID 09/13/17 carbamazepine 200 mg tablet 100 mg PO DAILY tab 12/02/17 ferrous sulfate 325 mg (65 mg iron) tablet 325 mg PO DAILY tab 12/02/17 Aspirin E.C. [Ecotrin] 81 mg PO DAILY@0800 02/02/18 Atorvastatin Calcium [Lipitor] 80 mg PO QHS 02/02/18 Isosorbide Mononitrate [Imdur] 60 mg PO QHS 02/02/18 Diazepam [Valium] 5 mg PO DAILY PRN PRN 03/17/18 Acetaminophen [Tylenol] 325 mg PO Q4H PRN PRN 03/30/18 Cyanocobalamin (Vitamin B-12) [B-12] 500 mcg PO DAILY 03/30/18 Metoprolol Tartrate 12.5 mg PO BID 03/30/18 Escitalopram Oxalate [Lexapro] 10 mg PO DAILY #30 tab 04/14/18 Insulin Lispro [Humalog KwikPen] See Protocol SUBCUT ACHS 30 Days insuln.pen 04/14/18 Ipratropium/Albuterol Sulfate [Duoneb] 3 ml INHALATION Q4HWA.RT ampul.neb 04/14/18 Lisinopril [Zestril] 40 mg PO DAILY #30 tab 04/14/18 Menthol/Lanolin/Calamine/Znox [Calmoseptine Ointment] 1 applic TOPICAL BID tube 04/14/18 Modafinil [Provigil] 200 mg PO DAILY@0600 #30 tab 04/14/18 Nystatin Powder [Mycostatin Powder] 1 applic TOPICAL TID bottle 04/14/18 Ondansetron [Zofran Odt] 4 mg PO Q8H PRN PRN tablet 04/14/18 Senna/Docusate Sodium [Senokot-S] 2 tablet PO BID tablet 04/14/18 Following Prescrptions Were Given to Patient: Escitalopram Oxalate [Lexapro] 10 mg PO DAILY #30 tab Insulin Lispro [Humalog KwikPen] See Protocol SUBCUT ACHS 30 Days insuln.pen Lisinopril [Zestril] 40 mg PO DAILY #30 tab Modafinil [Provigil] 200 mg PO DAILY@0600 #30 tab Primary Care Physician: Twan Coy MD [Primary Care Provider] - [facility]position[facility] Minutes spent on discharge:: 40 Patient Condition:: Good Rehab Course The patient is a 72 year old F noted to the [facility] acute rehab unit for rehabilitation following a right MCA distribution stroke as well as a very small left MCA distribution stroke. She was originally at [facility] and on 03/24/18 began to experience confusion. According to the notes stroke team was called however the patient was nonfocal. Subsequent workup included a CTA of the head and neck which did not disclose any significant stenosis but MRI showed stroke. The patient was then transferred to the [facility] where further testing was performed. Per the notes a TCD was performed as well as an echocardiogram however at the current time I do not have the results of these tests. Therapies were initiated at the [facility] and she tolerated therapies. She also apparently passed her swallow evaluation and was transferred back here to [facility] for further rehabilitation so that she could regain her prior level of functional independence living at home. She also has a history of meningioma status post gamma knife therapy in 2017. Apparently she had some dizziness leading to the therapy for the meningioma which then resolved. She also has a history of trigeminal neuralgia and is on Tegretol. There is also history of coronary artery disease hypertension and hypercholesterolemia as well as diabetes. Patient currently denies pain. Therapies have noted left neglect. Therapies also note flaccid paralysis of her left upper extremity. Nursing has noted some difficulty with swallowing which sounds like apraxia by description however we will make her n.p.o. for now and await speech therapy recommendations Per previous [place] neurology consultation note: The patient is a 72 year old CF with PMH HTN, HLD, DM, , H/O Right CEA in the past, s/p Left CEA ( yesterday 03/24/18)TN on Carbamazepine, CAD s/p stents, CKD, hypothyroidism admitted with post procedure confusion and disorientation. Per documentation her post procedure course was complicated by hypertension, then later yesterday night (03/24/18) she was confused and disoriented, stroke alert was called, but per documentation there was no focal deficit or facial droop at that time. Patient at present complains of mild generalized headache. Is on ASA/Plavix at baseline per , lives with , uses walker to ambulate, had intermittent falls in the past which has improved per , and does not drive. CT angiogram neck done 03/24/2018 reported to show postoperative changes in bilateral carotid bulbs without evidence of hemodynamically significant stenosis. No postoperative hemorrhage. 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 MRI brain without contrast on 03/24/2018 reported to show acute infarct in the posterior medial right occipital lobe within the right CLINICAL RN MANAGER territory and questionable acute infarcts within the basal ganglia (as reported by radiologist Dr. Yadira Blount). Per nurse taking care of the patient this morning patient was very agitated and trying to climb up out of the bed and was given Haldol. Per Dr. Young's note she had an attempted left carotid endarterectomy procedure on 02/07/2018 but it was aborted then due to malignant hypertension. No witnessed seizures per documentation. her rehab course was complicted by an episode of syncope which resolved. she suboptimally tolerated therapies, and choose to pursue an intermediate level of care at a SNF. Meaningful Use Info Meaningful Use Diagnoses (Choose all that apply): None applicable
--- NOTE | 2018-04-14 15:13 | CASEMGMT ---
Social Work PASRR completed in [facility] and faxed along with discharge information to [facility]. Proposed discharge date: 04/15/18 PLAN: Discharge to [facility] - skilled. Frances GONSALEZ, MIKEL
[2018-04-14] MEDS: Metoclopramide 5 MG TABLET PO (15:42)
[2018-04-14] MEDS: Pantoprazole Sodium 40 MG Tablet PO ×2 (15:43→21:41)
--- NOTE | 2018-04-14 17:14 | PCM.PN.HOSP ---
Subjective: Patient was seen and examined. Patient continues to have nausea with episodes of vomiting. This seems to be worse with therapy. Patient is being transferred to [facility] as she cannot tolerate increased therapy. Denied any chest pain or headache or dizziness. Objective: Physical exam: General: Alert, Oriented x3, Cooperative, No apparent distress HEENT: Atraumatic, PERRLA, EOMI, Normocephalic Oral: Moist Mucosa Neck: Supple, No JVD, Negative Carotid Bruits Lungs: Clear to auscultation, Normal air movement Cardiovascular: Regular rate, Regular Rhythm, Normal S1, Normal S2, No murmurs Abdomen: Bowel Sounds Present, Soft, Non Tender, Non-Distended, No Hepato-splenomegaly Extremities: No edema Skin: No rashes, No breakdown Musculoskeletal: No Tenderness to Palpation of Joints or Extremities Lymphatic: No Cervical, Supraclavicular, or Inguinal Adenopathy Neurological: Motor Exam 5/5 strength throughout - Left-sided hemiplegia Psych/Mental Status: Normal Affect, Appropriate Vitals/I&O's: Vital Signs Temp Pulse Resp BP Pulse Ox 98.6 F 91 18 126/56 H 95 04/14/18 07:20 04/14/18 09:31 04/14/18 07:20 04/14/18 07:20 04/14/18 07:20 Oxygen Flow Rate (L/min) 2 Oxygen Delivery Method Room Air Weight: 77.292 kg Body Mass Index (BMI) 36.5 Finger Stick Blood Glucose 134 Intake and Output for Last 24 Hours 04/12/18 04/13/18 04/14/18 23:59 23:59 23:59 Intake Total 1030 / 1030 3622 / 3622 650 / 650 Output Total 1025 / 1025 800 / 800 1580 / 1580 Balance 5 / 5 2822 / 2822 -930 / -930 Laboratory Results 04/13/18 17:34: POC Glucose 190 H 04/13/18 21:05: POC Glucose 205 H 04/14/18 05:30: WBC 10.2, RBC 3.10 L, Hgb 9.9 L, Hct 32.4 L, MCV 104.5 H, MCH 31.9, MCHC 30.6 L, RDW 15.8 H, RDW Differential 58.2 H, Plt Count 177, MPV 10.5, Immature Gran % (Auto) 0.200, Neut % (Auto) 83.4 H, Lymph % (Auto) 9.6 L, [place] % (Auto) 6.3, Eos % (Auto) 0.3, Baso % (Auto) 0.2, Absolute Neuts (auto) 8.5 H, Absolute Lymphs (auto) 0.98, Total Counted Not Reportable 04/14/18 05:30: Sodium 143, Potassium 5.1, Chloride 110 H, Carbon Dioxide 25.0, Anion Gap 8, BUN 31 H, Creatinine 1.45 H, Estim Creat Clear Calc 24.45, Est GFR (MDRD) Af Amer 45 L, Est GFR (MDRD) Non-Af 37 L, BUN/Creatinine Ratio 21.4 H, Glucose 242 H, Calcium 8.0 L 04/14/18 06:18: POC Glucose 220 H 04/14/18 12:42: POC Glucose 239 H Current Medications Acetaminophen (Tylenol) 650 mg PO Q4H PRN PRN PRN Reason: PAIN Last Admin: 04/14/18 01:18 Dose: 650 mg Albuterol Sulfate (Ventolin Aerosols) 2.5 mg INHALATION Q2H PRN PRN PRN Reason: SOB &/OR WHEEZING Albuterol/Ipratropium (Duoneb) 3 ml INHALATION Q4HWA.RT [facility] Last Admin: 04/14/18 07:00 Dose: Not Given Aspirin (Ecotrin) 81 mg PO DAILY@0800 [facility] Last Admin: 04/14/18 09:31 Dose: 81 mg Atorvastatin Calcium (Lipitor) 80 mg PO QHS [facility] Last Admin: 04/13/18 21:10 Dose: 80 mg Bisacodyl (Dulcolax) 10 mg RECTAL .PRN X 1 PRN PRN Reason: Constipation Calamine/Phenol (Calmoseptine Ointment) 1 applic TOPICAL BID [facility]; Protocol Last Admin: 04/14/18 09:35 Dose: 1 applicatio Carbamazepine (Tegretol) 100 mg PO DAILY [facility] Last Admin: 04/14/18 09:32 Dose: 100 mg Carbamazepine (Tegretol) 200 mg PO QHS [facility] Last Admin: 04/13/18 21:08 Dose: 200 mg Cholecalciferol (Vitamin D) 1,000 unit PO BID [facility] Last Admin: 02/21/19 09:32 Dose: 1,000 unit Cyanocobalamin (Vitamin B12) 500 mcg PO DAILY [facility] Last Admin: 04/14/18 09:32 Dose: 500 mcg Diazepam (Valium) 5 mg PO DAILY PRN PRN PRN Reason: ANXIETY Last Admin: 04/14/18 13:43 Dose: 5 mg Enoxaparin Sodium (Lovenox) 40 mg SC DAILY@0600 [facility] Last Admin: 04/14/18 04:58 Dose: 40 mg Escitalopram Oxalate (Lexapro) 10 mg PO DAILY [facility] Last Admin: 04/14/18 09:31 Dose: 10 mg Ferrous Sulfate (Ferrous Sulfate) 325 mg PO 1200 [facility] Last Admin: 04/14/18 12:17 Dose: Not Given Insulin Human Lispro (Humalog Kwikpen (Bkc)) 0 unit SC [facility]; Protocol Last Admin: 04/14/18 13:51 Dose: 2 u Isosorbide Mononitrate (Imdur) 60 mg PO QHS [facility] Last Admin: 04/13/18 21:11 Dose: 60 mg Levothyroxine Sodium (Synthroid) 100 mcg PO DAILY@0600 [facility] Last Admin: 04/14/18 04:58 Dose: 100 mcg Lisinopril (Zestril) 40 mg PO DAILY [facility] Last Admin: 04/14/18 09:32 Dose: 40 mg Magnesium Hydroxide (Milk Of Magnesia) 30 ml PO .PRN X 1 PRN PRN Reason: Constipation Metoclopramide HCl (Metoclopramide Hcl) 5 mg PO DAILY [facility] Last Admin: 04/14/18 15:42 Dose: 5 mg Metoprolol Tartrate (Lopressor (Beta Marino)) 12.5 mg PO BID [facility] Last Admin: 04/14/18 09:31 Dose: 12.5 mg Modafinil (Provigil) 200 mg PO DAILY@0600 [facility] Last Admin: 04/14/18 07:53 Dose: 200 mg Nystatin (Mycostatin Powder) 1 applic TOPICAL TID [facility]; Protocol Last Admin: 04/14/18 13:54 Dose: 1 applicatio Ondansetron HCl (Zofran) 4 mg IV Q6H PRN PRN PRN Reason: NAUSEA/VOMITING Last Admin: 04/13/18 09:24 Dose: 4 mg Ondansetron HCl (Zofran Odt) 4 mg PO Q8H PRN PRN PRN Reason: NAUSEA/VOMITING Last Admin: 04/14/18 07:01 Dose: 4 mg Pantoprazole Sodium (Protonix) 40 mg PO BID YANELI Stop: 04/28/18 14:13 Last Admin: 04/14/18 15:43 Dose: 40 mg Senna/Docusate Sodium (Senokot-S, Elisa-Colace) 2 tablet PO BID YANELI Last Admin: 04/14/18 09:32 Dose: 2 tablet Sodium Chloride () 5 - 15 ml IV UD PRN PRN Reason: SALINE FLUSH Last Admin: 04/13/18 02:14 Dose: 10 ml Medical Necessity - Tobacco Use Smoking Status: Never smoker Assessment/Plan All Active Problems (Last Reviewed 03/31/18 @ 11:23 by Panda Ferreira MD) Stroke (Acute) TIA (transient ischemic attack) (Acute) 72-year-old female with past medical history of hypertension, diabetes, CAD status post PCI, history of meningioma, history of TIA, status post left carotid endarterectomy, complicated by acute right posterior parietal and occipital infarct, tiny infarcts in left MCA territory with left hemiplegia admitted to the inpatient rehab for therapy. 1. Episode of unresponsiveness, status post rapid response, likely vasovagal, resolved 2. Nausea with vomiting, unclear etiology, KUB negative for ileus, other differential could be diabetic gastroparesis vs stress gastritis would add Reglan 5 mg p.o. daily, oral PPI 40 mg twice daily 3. Type II DM, sugars are fluctuating, continue to monitor blood sugars 4. Debility status post recent right posterior parietal and occipital infarct, tiny infarcts in left MCA territory with left hemiplegia 5. Hypertension, controlled, continue on Lisinopril and metoprolol 6. Recent left carotid endarterectomy/CAD s/p PCI, aspirin, statin, lisinopril, beta-marino 7. Hypothyroidism, on levothyroxine 9. Seizure disorder, history of meningioma, on carbamazepine, will continue to monitor for seizures 10. DVT PPx- Lovenox SC Code Visit Inpatient E&M: 78770 Subs Hosp L2
--- NOTE | 2018-04-14 17:17 | PN_ITS ---
Subjective: Patient was seen and examined. Patient continues to have nausea with episodes of vomiting. This seems to be worse with therapy. Patient is being transferred to [facility] as she cannot tolerate increased therapy. Denied any chest pain or headache or dizziness. Objective: Physical exam: General: Alert, Oriented x3, Cooperative, No apparent distress HEENT: Atraumatic, PERRLA, EOMI, Normocephalic Oral: Moist Mucosa Neck: Supple, No JVD, Negative Carotid Bruits Lungs: Clear to auscultation, Normal air movement Cardiovascular: Regular rate, Regular Rhythm, Normal S1, Normal S2, No murmurs Abdomen: Bowel Sounds Present, Soft, Non Tender, Non-Distended, No Hepato- splenomegaly Extremities: No edema Skin: No rashes, No breakdown Musculoskeletal: No Tenderness to Palpation of Joints or Extremities Lymphatic: No Cervical, Supraclavicular, or Inguinal Adenopathy Neurological: Motor Exam 5/5 strength throughout - Left-sided hemiplegia Psych/Mental Status: Normal Affect, Appropriate Vitals/I&O's: Vital Signs Temp Pulse Resp BP Pulse Ox 98.6 F 91 18 126/56 H 95 04/14/18 07:20 04/14/18 09:31 04/14/18 07:20 04/14/18 07:20 04/14/18 07:20 Oxygen Flow Rate (L/min) 2 Oxygen Delivery Method Room Air Weight: 77.292 kg Body Mass Index (BMI) 36.5 Finger Stick Blood Glucose 134 Intake and Output for Last 24 Hours 04/12/18 04/13/18 04/14/18 23:59 23:59 23:59 Intake Total 1030 / 1030 3622 / 3622 650 / 650 Output Total 1025 / 1025 800 / 800 1580 / 1580 Balance 5 / 5 2822 / 2822 -930 / -930 Laboratory Results 04/13/18 17:34: POC Glucose 190 H 04/13/18 21:05: POC Glucose 205 H 04/14/18 05:30: WBC 10.2, RBC 3.10 L, Hgb 9.9 L, Hct 32.4 L, MCV 104.5 H, MCH 31.9, MCHC 30.6 L, RDW 15.8 H, RDW Differential 58.2 H, Plt Count 177, MPV 10.5, Immature Gran % (Auto) 0.200, Neut % (Auto) 83.4 H, Lymph % (Auto) 9.6 L, Haakon % (Auto) 6.3, Eos % (Auto) 0.3, Baso % (Auto) 0.2, Absolute Neuts (auto) 8.5 H, Absolute Lymphs (auto) 0.98, Total Counted Not Reportable 04/14/18 05:30: Sodium 143, Potassium 5.1, Chloride 110 H, Carbon Dioxide 25.0, Anion Gap 8, BUN 31 H, Creatinine 1.45 H, Estim Creat Clear Calc 24.45, Est GFR (MDRD) Af Amer 45 L, Est GFR (MDRD) Non-Af 37 L, BUN/Creatinine Ratio 21.4 H, Glucose 242 H, Calcium 8.0 L 04/14/18 06:18: POC Glucose 220 H 04/14/18 12:42: POC Glucose 239 H Current Medications Acetaminophen (Tylenol) 650 mg PO Q4H PRN PRN PRN Reason: PAIN Last Admin: 04/14/18 01:18 Dose: 650 mg Albuterol Sulfate (Ventolin Aerosols) 2.5 mg INHALATION Q2H PRN PRN PRN Reason: SOB &/OR WHEEZING Albuterol/Ipratropium (Duoneb) 3 ml INHALATION Q4HWA.RT [facility] Last Admin: 04/14/18 07:00 Dose: Not Given Aspirin (Ecotrin) 81 mg PO DAILY@0800 [facility] Last Admin: 04/14/18 09:31 Dose: 81 mg Atorvastatin Calcium (Lipitor) 80 mg PO QHS [facility] Last Admin: 04/13/18 21:10 Dose: 80 mg Bisacodyl (Dulcolax) 10 mg RECTAL .PRN X 1 PRN PRN Reason: Constipation Calamine/Phenol (Calmoseptine Ointment) 1 applic TOPICAL BID [facility]; Protocol Last Admin: 04/14/18 09:35 Dose: 1 applicatio Carbamazepine (Tegretol) 100 mg PO DAILY [facility] Last Admin: 04/14/18 09:32 Dose: 100 mg Carbamazepine (Tegretol) 200 mg PO QHS [facility] Last Admin: 04/13/18 21:08 Dose: 200 mg Cholecalciferol (Vitamin D) 1,000 unit PO BID [facility] Last Admin: 02/21/19 09:32 Dose: 1,000 unit Cyanocobalamin (Vitamin B12) 500 mcg PO DAILY [facility] Last Admin: 04/14/18 09:32 Dose: 500 mcg Diazepam (Valium) 5 mg PO DAILY PRN PRN PRN Reason: ANXIETY Last Admin: 04/14/18 13:43 Dose: 5 mg Enoxaparin Sodium (Lovenox) 40 mg SC DAILY@0600 [facility] Last Admin: 04/14/18 04:58 Dose: 40 mg Escitalopram Oxalate (Lexapro) 10 mg PO DAILY [facility] Last Admin: 04/14/18 09:31 Dose: 10 mg Ferrous Sulfate (Ferrous Sulfate) 325 mg PO 1200 [facility] Last Admin: 04/14/18 12:17 Dose: Not Given Insulin Human Lispro (Humalog Kwikpen (Bkc)) 0 unit SC [facility]; Protocol Last Admin: 04/14/18 13:51 Dose: 2 u Isosorbide Mononitrate (Imdur) 60 mg PO QHS [facility] Last Admin: 04/13/18 21:11 Dose: 60 mg Levothyroxine Sodium (Synthroid) 100 mcg PO DAILY@0600 [facility] Last Admin: 04/14/18 04:58 Dose: 100 mcg Lisinopril (Zestril) 40 mg PO DAILY [facility] Last Admin: 04/14/18 09:32 Dose: 40 mg Magnesium Hydroxide (Milk Of Magnesia) 30 ml PO .PRN X 1 PRN PRN Reason: Constipation Metoclopramide HCl (Metoclopramide Hcl) 5 mg PO DAILY [facility] Last Admin: 04/14/18 15:42 Dose: 5 mg Metoprolol Tartrate (Lopressor (Beta Marino)) 12.5 mg PO BID [facility] Last Admin: 04/14/18 09:31 Dose: 12.5 mg Modafinil (Provigil) 200 mg PO DAILY@0600 [facility] Last Admin: 04/14/18 07:53 Dose: 200 mg Nystatin (Mycostatin Powder) 1 applic TOPICAL TID [facility]; Protocol Last Admin: 04/14/18 13:54 Dose: 1 applicatio Ondansetron HCl (Zofran) 4 mg IV Q6H PRN PRN PRN Reason: NAUSEA/VOMITING Last Admin: 04/13/18 09:24 Dose: 4 mg Ondansetron HCl (Zofran Odt) 4 mg PO Q8H PRN PRN PRN Reason: NAUSEA/VOMITING Last Admin: 04/14/18 07:01 Dose: 4 mg Pantoprazole Sodium (Protonix) 40 mg PO BID [facility] Stop: 04/28/18 14:13 Last Admin: 04/14/18 15:43 Dose: 40 mg Senna/Docusate Sodium (Senokot-S, Elisa-Colace) 2 tablet PO BID [facility] Last Admin: 04/14/18 09:32 Dose: 2 tablet Sodium Chloride () 5 - 15 ml IV UD PRN PRN Reason: SALINE FLUSH Last Admin: 04/13/18 02:14 Dose: 10 ml Medical Necessity - Tobacco Use Smoking Status: Never smoker Assessment/Plan All Active Problems (Last Reviewed 03/31/18 @ 11:23 by Panda Ferreira MD) Stroke (Acute) TIA (transient ischemic attack) (Acute) 72-year-old female with past medical history of hypertension, diabetes, CAD status post PCI, history of meningioma, history of TIA, status post left carotid endarterectomy, complicated by acute right posterior parietal and occipital infarct, tiny infarcts in left MCA territory with left hemiplegia admitted to the inpatient rehab for therapy. 1. Episode of unresponsiveness, status post rapid response, likely vasovagal, resolved 2. Nausea with vomiting, unclear etiology, KUB negative for ileus, other differential could be diabetic gastroparesis vs stress gastritis would add Reglan 5 mg p.o. daily, oral PPI 40 mg twice daily 3. Type II DM, sugars are fluctuating, continue to monitor blood sugars 4. Debility status post recent right posterior parietal and occipital infarct, tiny infarcts in left MCA territory with left hemiplegia 5. Hypertension, controlled, continue on Lisinopril and metoprolol 6. Recent left carotid endarterectomy/CAD s/p PCI, aspirin, statin, lisinopril, beta-marino 7. Hypothyroidism, on levothyroxine 9. Seizure disorder, history of meningioma, on carbamazepine, will continue to monitor for seizures 10. DVT PPx- Lovenox SC Code Visit Inpatient E&M: 67916 Subs Hosp L2
[2018-04-14 17:26] LABS: Bedside Glucose 222 mg/dL (70-110)
[2018-04-14] MEDS: Isosorbide Mononitrate 60 MG Tablet PO (21:31)
[2018-04-14] MEDS: Atorvastatin Calcium 80 MG Tablet PO (21:32)
[2018-04-14 21:40] VITALS: PULSE 53
[2018-04-14] MEDS: carBAMazepine 200 MG Tablet PO (21:41)
[2018-04-14 22:00] VITALS: BP 159/61; PULSE 51; RESP 16; TEMP 36.8; O2SAT 96
[2018-04-14 22:01] LABS: Bedside Glucose 291 mg/dL (70-110)
[2018-04-15 03:23] VITALS: BMI 36.5
--- NOTE | 2018-04-15 04:17 | NURSING ---
Reviewed and agree with OVEN TENDER documentation and FIMs charting.
[2018-04-15 06:17] VITALS: PULSE 52; RESP 16; O2SAT 92
[2018-04-15] MEDS: Ipratropium/Albuterol Sulfate 3 ML AMPUL.NEB INHALATION (06:17)
[2018-04-15] MEDS: Modafinil 200 MG Tablet PO (06:28)
[2018-04-15] MEDS: Levothyroxine 100 MCG Tablet PO (06:28)
[2018-04-15] MEDS: Enoxaparin 40 MG/0.4 ML Syringe SC (06:28)
[2018-04-15] MEDS: Nystatin Powder 15gm Bottle 1 APPLIC TOPICAL (06:28)
[2018-04-15 07:00] VITALS: BP 124/60; PULSE 84; RESP 18; TEMP 36.6; O2SAT 98
[2018-04-15 07:05] LABS: Bedside Glucose 203 mg/dL (70-110)
[2018-04-15] MEDS: Aspirin E.C. 81 MG Tablet PO (08:51)
[2018-04-15] MEDS: Insulin Lispro 100 UNIT/ML INSULN.PEN SC ×2 (08:51→12:42)
[2018-04-15 08:52] VITALS: BP 124/60; PULSE 84
[2018-04-15] MEDS: Escitalopram Oxalate 10 MG Tablet PO (08:52)
[2018-04-15] MEDS: Metoprolol Tartrate 25 MG Tablet 12.5 MG PO (08:52)
[2018-04-15] MEDS: Pantoprazole Sodium 40 MG Tablet PO (08:54)
[2018-04-15] MEDS: Metoclopramide 5 MG TABLET PO (08:54)
[2018-04-15] MEDS: Cyanocobalamin 500 MCG Tablet PO (08:55)
[2018-04-15] MEDS: carBAMazepine 200 MG Tablet 100 MG PO (08:55)
[2018-04-15] MEDS: Lisinopril 40 MG Tablet PO (08:55)
[2018-04-15] MEDS: Senna/Docusate Sodium 1 Tablet 2 TABLET PO (08:56)
[2018-04-15] MEDS: Menthol/Lanolin/Calamine/Znox 113 GM Tube 1 APPLIC TOPICAL (10:10)
[2018-04-15 11:26] LABS: Bedside Glucose 262 mg/dL (70-110)
--- NOTE | 2018-04-15 12:12 | NURSING ---
This RN called report to Shruthi (nurse) at [facility].
--- NOTE | 2018-04-15 12:13 | CASEMGMT ---
Social Work Met with patient and patient spouse to complete health care power of consumer attorney paperwork for both along with Living Will. Documents completed. Original documented provided to patient and patient spouse. Copy of all documents placed on patient chart. Patient spouse documents provided to medical records. Frances GONSALEZ, MIKEL
[2018-04-15] MEDS: Ferrous Sulfate 325 MG Tablet PO (12:42)
== END 2018-04-15 13:00 | disposition skilled nursing facility (03) | DRG 57 ==
PROVIDERS: Family Medicine; Internal Medicine; Admitting Provider Psychiatry & Neurology Neurology; Family Provider Family Medicine; PCP Family Medicine; Referring Provider Psychiatry & Neurology Neurology; Visit Provider Student in an Organized Health Care Education/Training Program
DX: I69.354 Hemiplegia and hemiparesis following cerebral infarction affecting left non-dominant side (principal); N39.0 Urinary tract infection, site not specified; I69.392 Facial weakness following cerebral infarction; I25.10 Atherosclerotic heart disease of native coronary artery without angina pectoris; E11.22 Type 2 diabetes mellitus with diabetic chronic kidney disease; I12.9 Hypertensive chronic kidney disease with stage 1 through stage 4 chronic kidney disease, or unspecified chronic kidney disease; N18.3 Chronic kidney disease, stage 3 (moderate); E03.9 Hypothyroidism, unspecified; I27.20 Pulmonary hypertension, unspecified; G50.0 Trigeminal neuralgia; Z86.018 Personal history of other benign neoplasm; G40.909 Epilepsy, unspecified, not intractable, without status epilepticus; Z95.5 Presence of coronary angioplasty implant and graft; E78.5 Hyperlipidemia, unspecified; K21.9 Gastro-esophageal reflux disease without esophagitis; Z85.42 Personal history of malignant neoplasm of other parts of uterus; I69.322 Dysarthria following cerebral infarction; B96.20 Unspecified Escherichia coli [E. coli] as the cause of diseases classified elsewhere
CPT/HCPCS: 36415; 71045; 74018; 80048; 80156; 81001; 82962; 85025; 85027; 87086; 87088; 87186; 92507; 92523; 92526; 92610; 93005; 94640; 97110; 97112; 97116; 97140; 97163; 97166; 97530; 97535; J7030; A4216; J2405

== ENCOUNTER 2018-05-03 14:02 | Inpatient (IN) | payer MEDICARE, OTHER, SELFPAY ==
[2018-05-03] VITALS (19 sets, daily range): BP systolic 51–124; BP diastolic 14–88; PULSE 32–60; RESP 16–26; TEMP 36.3–37.1; O2SAT 94–100; BMI 33.5; BMI 33.8; BMI 33.7
--- NOTE | 2018-05-03 14:31 | RAD_ITS ---
STUDY: X-RAY CHEST REASON FOR EXAM: Female, 72 years old. Altered level of consciousness. TECHNIQUE: Single AP portable view of the chest. COMPARISON: Comparison is made with prior study dated April 12, 2018. FINDINGS: EKG electrodes are seen. Stable elevation of the right hemidiaphragm. Mild increased markings at the left lung base suggestive of atelectasis. There is blunting of the left costophrenic angle. There is mild cardiac enlargement. Normal mediastinum and joshua. Normal visualized pulmonary arteries. There is atherosclerotic calcification of the aortic arch with tortuosity. There are diffuse degenerative changes of the visualized thoracic spine. Dextroscoliosis. Normal visualized ribs, clavicles, and shoulders. There is no demonstrated abnormality of the visualized soft tissue structures of the upper abdomen. RAD/Chest 1 View (Portable) IMPRESSION: Findings suggestive atelectatic changes at the left lung base with blunted left costophrenic angle. Electronically Signed: Amandeep Dawkins, at 15:05 EDT , Service support ,
--- NOTE | 2018-05-03 14:32 | EKG12_ITS ---
Test Reason : MELISSA Blood Pressure : / mmHG Vent. Rate : 036 BPM Atrial Rate : 029 BPM P-R Int : 000 ms QRS Dur : 128 ms QT Int : 558 ms P-R-T Axes : 000 -41 016 degrees QTc Int : 431 ms Idioventricular rhythm or junctional rhythm Left axis deviation Left bundle branch block Abnormal ECG Confirmed by ALISA RUIZ, SHAKIRA ([id number]), international editorial producer AKIL ROMO ([id number]) on 05/05/2018 11:06:01 AM Referred By: Huan Romeo Confirmed By:SHAKIRA CUELLAR MD
--- NOTE | 2018-05-03 14:35 | CM.ED ---
Social Work Note Referral from Dr. Sheriff for discussion of hospice services. Pt is a DNR-CC and HR is in the 30s. Face to face with the pt's spouse, Tram, and introduced self and role at [facility]. Explained hospice services and comfort care. [place] inquires if they would go out to [facility] where the pt is. Explain that it is an outside agency, but they could provide services out at the SNF. Offer to make referral and [place] states, I would like more answers first. [place] agreeable to hospice referral once testing and physician return to discuss prognosis. Kami Sanabria, ENTERPRISE INTEGRATION DEVELOPER, EXECUTIVE MEETING MANAGER
[2018-05-03] MEDS: Atropine Sulfate 1 MG/10 ML Syringe 0.5 MG IV (15:15)
--- NOTE | 2018-05-03 15:33 | CM.ED ---
Social Work Note Pt's spouse agreeable to discuss services with hospice. Faxed clinical information to hospice. Placed call to [facility] and updated [place]. Staff to review and come evaluate pt for their inpatient unit. This ticket writer to continue to follow and assist as needed. Kami Sanabria, JIG GRINDER, WAREHOUSE ATTENDANT
--- NOTE | 2018-05-03 15:34 | CHAPLAIN ---
Type of Pastoral Visit _x__ Initial Visit ___ Follow-up Visit ___ On-call Visit ___ General Patient Visit ___ Spiritual Assessment ___ Family Conference ___ Bereavement ___ Rapid Response ___ Code Blue ___ Other (describe below) Pastoral Care Referral From ___ Patient ___ Family ___ Nurse _x__ Physician _x__ Cost Estimating Manager ___ Group Supervisor Yard ___ Other (describe below) Sacrament/Intervention ___ Active listening ___ Anointing ___ Anabaptism ___ Bereavement ___ Communion ___ Shirlene exploration ___ ___ Life review _x__ Prayer ___ Reconciliation ___ Sacrament of Sick _x__ Supportive presence ___ Wedding ___ Other (describe below) Pastoral Comments SW and recommended visit to patient due to determination that pt is hospice appropriate; pt has been seen before by this engineering intern in previous admission; spoke with spouse who is with pt in room; offered support to spouse; pt was able to open eyes but did not speak to engineering intern during this visit; prayer offered and ongoing support; informed engineering intern that hospice has been consulted and will be coming
--- NOTE | 2018-05-03 15:37 | ED.RN ---
md aware of vitals. ok'd by md to place monitor in room on comfort care.
--- NOTE | 2018-05-03 15:57 | ED.VISSUMM ---
- ER Visit Summary Date of Service: 05/03/18 Chief Complaint: Poorly responsive History of Present Illness: The patient is a 72 F presenting from a [facility]dc facility after being found poorly responsive. She had a recent stroke has been having multiple medical issues recently. Her signed a DNR Comfort Care only. Physical Examination: She is in moderate distress. Heart rate is in the 30s. Blood pressure is low. She appears dehydrated. She is alert and oriented to self only. Test Results: Chest x-ray unremarkable. Labs still pending. Emergency Department Course and Treatment: She was bradycardic in the 30s. She was given atropine and her heart rate came up into the 70s transiently. Blood pressure was in the 80s but responded to a small fluid bolus. I had an extensive discussion with her regarding CODE STATUS. He would like for her to be kept comfortable and does not want any aggressive treatment done. He does not want a pacemaker placed. His main concern is keeping her comfortable at this point. He would like to have hospice involved. Treatment Plan: I consulted hospice as well as case management. Hospice is coming in to see the patient and will assist with disposition. Disposition: Pending hospice evaluation, either admit to hospice for hospice at the skilled facility. Impression: Initial encounter bradycardia and hypotension, DNR Comfort Care only This note was generated with [employer] dictation software. It may contain incorrect words, spelling, and punctuation that were not noted in review of the chart prior to signing ED Disposition - Plan for ED Patient: Referrals: Twan Coy MD [Primary Care Provider] -
--- NOTE | 2018-05-03 15:58 | CM.ED ---
Social Work Note [facility] here to evaluate pt for IPU. Kami Sanabria, POLICE LIAISON, MIKEL
--- NOTE | 2018-05-03 16:00 | ED.DCSUM_ITS ---
- ER Visit Summary Date of Service: 05/03/18 Chief Complaint: Poorly responsive History of Present Illness: The patient is a 72 F presenting from a care home facility after being found poorly responsive. She had a recent stroke has been having multiple medical issues recently. Her signed a DNR Comfort Care only. Physical Examination: She is in moderate distress. Heart rate is in the 30s. Blood pressure is low. She appears dehydrated. She is alert and oriented to self only. Test Results: Chest x-ray unremarkable. Labs still pending. Emergency Department Course and Treatment: She was bradycardic in the 30s. She was given atropine and her heart rate came up into the 70s transiently. Blood pressure was in the 80s but responded to a small fluid bolus. I had an extensive discussion with her regarding CODE STATUS. He would like for her to be kept comfortable and does not want any aggressive treatment done. He does not want a pacemaker placed. His main concern is keeping her comfortable at this point. He would like to have hospice involved. Treatment Plan: I consulted hospice as well as case management. Hospice is coming in to see the patient and will assist with disposition. Disposition: Pending hospice evaluation, either admit to hospice for hospice at the skilled facility. Impression: Initial encounter bradycardia and hypotension, DNR Comfort Care only This note was generated with [employer] dictation software. It may contain incorrect words, spelling, and punctuation that were not noted in review of the chart prior to signing ED Disposition - Plan for ED Patient: Referrals: Twan Coy MD [Primary Care Provider] -
[2018-05-03 16:12] LABS: Absolute Lymphocyte Count 0.64 X10^3/ul (0.83-4.51); Absolute Neutrophil Count 14.4 X10^3/uL (2.0-7.7); Basophil# 0.01 X10^3/uL; Basophil% 0.1 % (0-1); Hematocrit 29.5 % (37-47); Hemoglobin 8.9 g/dl (12.0-15.0); Lymphocyte # 0.64 X10^3/ul (4.0); Mean Corp Hgb Conc 30.2 g/gl (32-36); Mean Corpuscular Hgb 33.2 pg (27.0-32.0); Mean Corpuscular Volume 110.1 fL (81-99); Mean Platelet Vol. 12.1 fl (6.2-12.0); Monocyte# 0.76 X10^3/uL; Monocyte% 4.8 % (0-10); Neutrophil # 14.42 X10^3/uL (2.7-7.7); Neutrophil % 90.9 % (47-70); POSITIVE COUNT NO; POSITIVE DIFFERENTIAL NO; POSITIVE MORPHOLOGY NO; Platelet Count 208 K/mm3 (150-450); Red Blood Count 2.68 M/mm3 (4.2-5.4); White Blood Count 15.9 K/mm3 (4.4-11.0)
[2018-05-03 16:13] LABS: Absolute Nucleated RBC Count 0.15 10^3/uL (0-5); NRBC Flagged by Analyzer 0.9 % (0-5)
[2018-05-03 16:19] LABS: Anion Gap 12 (5-15); BUN 107 mg/dL (7-18); BUN/Creat Ratio 29.9 RATIO (10-20); Calcium,Total 8.4 mg/dL (8.5-10.1); Chloride 108 mmol/L (98-107); Creatinine, Serum 3.58 mg/dL (0.55-1.02); EST Glomerular Filtration Rate 13 mL/min (>60); Est Glom Filt Rate - Afr Amer 16 mL/min (>60); Glucose 185 mg/dL (74-106); Potassium 5.6 mmol/L (3.5-5.1); Sodium Level 138 mmol/L (136-145)
[2018-05-03 16:33] LABS: Lactic Acid 4.1 mmol/L (0.4-2.0)
--- NOTE | 2018-05-03 17:13 | ED.RN ---
LAB IS AT BEDSIDE ATTEMPTING TO COLLECT CX.
[2018-05-03] MEDS: Ciprofloxacin 400 MG/200 ML BAG 200 MG IV (17:25)
--- NOTE | 2018-05-03 17:29 | ED.RN ---
LAB UNABLE TO COLLECT CX AWARE. CANCEL CX.
--- NOTE | 2018-05-03 18:07 | PCM.HP.STD ---
Problem List (1) Altered mental status Status: Acute (2) Hyperkalemia Status: Acute (3) Acute kidney injury on CKD stage III Status: Acute (4) GI bleed Status: Resolved (5) Stroke Status: Chronic (6) Hyperperfusion syndrome, status post carotid endarterectomy Status: Suspected (7) Carotid stenosis, left Status: Chronic (8) TIA (transient ischemic attack) Status: Acute (9) Stroke-like symptoms Status: Inactive (10) Nonrheumatic aortic (valve) stenosis Status: Chronic (11) Pulmonary hypertension Status: Chronic (12) Nonrheumatic tricuspid (valve) insufficiency Status: Chronic (13) Nonrheumatic mitral (valve) insufficiency Status: Chronic (14) Nonrheumatic mitral (valve) prolapse Status: Chronic (15) CKD (chronic kidney disease) stage 3, GFR 30-59 ml/min Status: Chronic (16) Type 2 diabetes mellitus Status: Chronic (17) Essential hypertension Status: Chronic (18) Carotid artery stenosis Status: Chronic Qualifiers: Comment: Left (19) Presence of stent in coronary artery Status: Chronic Comment: PTCA/Stent to the LAD 1999 (20) Atherosclerotic heart disease of eek coronary artery without angina pectoris Status: Chronic (21) Hyperlipemia Status: Chronic Qualifiers: (22) Hypothyroidism Status: Chronic History of Present Illness Date of Admission: 05/03/18 Chief Complaint: Altered mental status, poorly responsive assisted today The patient is a 72 year old F with multiple comorbidities as listed above including history of CVA, diabetes mellitus type 2, hypertension, CKD stage III, pulmonary hypertension DNR CC was brought in from [facility] for being poorly responsive today. As per the , Mr. Tram Webber she has been lethargic, not eating or drinking for last 3 days. Patient is very dehydrated. The patient and her denies flulike symptoms, fever or chills in last 1 week. Patient also denies new lower urinary tract symptoms including burning micturition or increased frequency or urgency. Patient had Vences catheter in the ED and the urine is dark yellow. In ER, patient was found in moderate distress with heart rate 30s, blood pressure low, severely dehydrated. EKG shows idioventricular rate, 36/min. Patient was given atropine and heart rate is 57-46/min. Patient also about 2-3 L of normal saline bolus. Patient for acute kidney injury and CKD stage III with BUN/creatinine 107/3.58, K5.6, lactic acid 4.1. ER physician talked to hospice care Dr. Dawosn and he thinks patient is in reversible condition including reversal of dehydration, treatment of possible sepsis as the patient lactic acid is high and metabolic derangements. [] Past Medical History Past Medical History (Chronic Problems): Chronic Problems (Last Reviewed 03/31/18 @ 11:23 by Panda Ferreira MD) Stroke (Chronic) Carotid stenosis, left (Chronic) Nonrheumatic aortic (valve) stenosis (Chronic) Pulmonary hypertension (Chronic) Nonrheumatic tricuspid (valve) insufficiency (Chronic) Nonrheumatic mitral (valve) insufficiency (Chronic) Nonrheumatic mitral (valve) prolapse (Chronic) CKD (chronic kidney disease) stage 3, GFR 30-59 ml/min (Chronic) Type 2 diabetes mellitus (Chronic) Essential hypertension (Chronic) Carotid artery stenosis (Chronic) Left Presence of stent in coronary artery (Chronic ~1999) PTCA/Stent to the LAD 1999 Atherosclerotic heart disease of eek coronary artery without angina pectoris (Chronic) Hyperlipemia (Chronic) Hypothyroidism (Chronic) Medical History: Medical History (Last Reviewed 03/31/18 @ 11:23 by Panda Ferreira MD) Nonrheumatic aortic (valve) stenosis (Chronic) I35.0 Pulmonary hypertension (Chronic) I27.20 Nonrheumatic tricuspid (valve) insufficiency (Chronic) I36.1 Nonrheumatic mitral (valve) insufficiency (Chronic) I34.0 Nonrheumatic mitral (valve) prolapse (Chronic) I34.1 CKD (chronic kidney disease) stage 3, GFR 30-59 ml/min (Chronic) N18.3 Type 2 diabetes mellitus (Chronic) E11.9 Essential hypertension (Chronic) I10 Carotid artery stenosis (Chronic) I65.29 Left Presence of stent in coronary artery (Chronic) Onset Date: ~1999 Z95.5 PTCA/Stent to the LAD 1999 Atherosclerotic heart disease of eek coronary artery without angina pectoris (Chronic) I25.10 Hyperlipemia (Chronic) E78.5 Hypothyroidism (Chronic) E03.9 GERD (gastroesophageal reflux disease) K21.9 History of uterine cancer Z85.42 Trigeminal neuralgia G50.0 Meningioma D32.9 Allergies adhesive tape Allergy (Verified 05/03/18 14:28) Rash Penicillins Allergy (Verified 05/03/18 14:28) Rash Home Medications: Ambulatory Orders Medication Instructions Recorded Levothyroxine [Synthroid] 100 mcg PO DAILY 09/12/16 ferrous sulfate 325 mg (65 mg 325 mg PO BID tab 12/02/17 iron) tablet Atorvastatin Calcium [Lipitor] 80 mg PO QHS 02/02/18 Isosorbide Mononitrate [Imdur] 60 mg PO QHS 02/02/18 Acetaminophen [Tylenol] 650 mg PO Q4H PRN PRN 03/30/18 Cyanocobalamin (Vitamin B-12) 500 mcg PO DAILY 03/30/18 [B-12] Metoprolol Tartrate 12.5 mg PO BID 03/30/18 Carbamazepine 200 mg PO QHS 05/03/18 Carbamazepine [Carbamazepine ER] 100 mg PO DAILY 05/03/18 Cholecalciferol (VIT D3) [Vitamin 1,000 unit PO DAILY 05/03/18 D] Escitalopram Oxalate [Lexapro] 10 mg PO DAILY 05/03/18 Insulin Aspart [Novolog Flexpen See Protocol SC TIDCM 05/03/18 ([facility])] Lisinopril [Zestril] 40 mg PO DAILY 05/03/18 Metoclopramide HCl [Reglan] 5 mg PO BID 05/03/18 Modafinil [Provigil] 200 mg PO DAILY@0600 05/03/18 Nut.tx.gluc.intoler,Lac-Fr,Soy 120 ml PO 4X/DAY 05/03/18 [Glucerna] Nystatin Powder [Mycostatin Powder] 1 applic TOPICAL BID 05/03/18 Omeprazole 40 mg PO DAILY 05/03/18 Ondansetron [Zofran Odt] 4 mg PO Q6H PRN PRN 05/03/18 Senna/Docusate Sodium [Senokot-S] 2 tablet PO BID 05/03/18 Surgical History: Surgical History (Last Reviewed 03/31/18 @ 11:23 by Panda Ferreira MD) Presence of coronary angioplasty implant and graft Onset Date: ~1999 Z95.5 PTCA/Stent to the LAD 1999 History of cataract surgery Z98.49 History of hysterectomy Z90.710 History of right-sided carotid endarterectomy Z98.890 S/P wrist surgery Z98.890 ORIF Smoking Status: Never smoker - *Family History Paternal Family History: Family History (Last Reviewed 03/31/18 @ 11:24 by Panda Ferreira MD) Mother Heart disease Diabetes Cancer Brother Cancer Diabetes Sister Cancer Diabetes Review of Systems Constitutional: Reports: Malaise, Weakness, Fatigue. Denies: Chills, Fever HEENT: Denies: Head Aches, Sinus Congestion, Sinus Drainage Cardiovascular: Denies: Chest Pain, Palpitations Respiratory: Reports: Shortness of breath upon exertion. Denies: Cough, Shortness of breath at rest, Sputum production Gastrointestinal: Reports: Constipation. Denies: Abdominal Pain, Hematemesis, Hematochezia, Nausea, Vomiting Genitourinary: Reports: - - Vences catheter was inserted in the ER. Denies: Dysuria, Frequency Musculoskeletal: Denies: Joint Pain, Joint Tenderness Skin: Denies: Rash, Wounds Neurological: Denies: Numbness, Tingling, Focal weakness Psychiatric: Denies: Anxiety, Depression, Homicidal Ideations, Suicidal Ideations Hematologic/ Lymphatic: Denies: Easy Bruising, Easy Bleeding Unable to obtain accurate/complete ROS d/t: Patient is very lethargic and opens her eyes. VTE Information - Inpt Only VTE Present on Admission: No VTE Mechan Device Prophylaxis: SCD's VTE Pharm Prophylaxis ordered?: Yes Patient Problems: Active and Suspected Problems (Last Reviewed 03/31/18 @ 11:23 by Panda Ferreira MD) Altered mental status (Acute) Hyperkalemia (Acute) Acute kidney injury on CKD stage III (Acute) - Physical Exam General: Cooperative, Confused, Disoriented, Lethargic HEENT: Atraumatic, PERRLA, EOMI, Normocephalic Oral: Dry Mucosa Neck: Supple, No JVD, Negative Carotid Bruits Lungs: Diminished - Air entry is diminished., Rhonchi - Coarse rales present on both lungs Cardiovascular: Normal S1, Normal S2, No murmurs, Bradycardic, Irregular Rate Abdomen: Bowel Sounds Present, Soft, Non Tender, Non-Distended, - - Vences catheter shows dark urine Extremities: Capillary Refill Less than 3 Seconds, Edema Skin: No rashes, No breakdown Musculoskeletal: No Tenderness to Palpation of Joints or Extremities, Arthritic Changes, Muscle Wasting Neurological: Cranial nerves II-XII grossly intact Psych/Mental Status: Normal Affect, Appropriate Vital Signs Temp Pulse Resp BP Pulse Ox 98.7 F 46 L 18 103/72 96 05/03/18 17:08 05/03/18 17:08 05/03/18 17:08 05/03/18 17:08 05/03/18 17:08 Oxygen Flow Rate (L/min) 2 Oxygen Delivery Method Nasal Cannula Weight: 177 lb 7.554 oz Body Mass Index (BMI) 33.5 Finger Stick Blood Glucose 134 Laboratory Tests Past 24 Hrs 05/03/18 05/03/18 05/03/18 15:45 15:45 15:45 WBC 15.9 H RBC 2.68 L Hgb 8.9 L Hct 29.5 L MCV 110.1 H MCH 33.2 H MCHC 30.2 L RDW 17.0 H RDW Differential 64.0 H Plt Count 208 MPV 12.1 H Immature Gran % (Auto) 0.200 Neut % (Auto) 90.9 H Lymph % (Auto) 4.0 L [place] % (Auto) 4.8 Eos % (Auto) 0.0 Baso % (Auto) 0.1 Absolute Neuts (auto) 14.4 H Absolute Lymphs (auto) 0.64 L Total Counted Not Reportable Nucleated RBC % 0.9 Absolute Retic 0.15 Sodium 138 Potassium 5.6 H Chloride 108 H Carbon Dioxide 18.0 L Anion Gap 12 BUN 107 H* Creatinine 3.58 H Estim Creat Clear Calc 10.40 Est GFR (MDRD) Af Amer 16 L Est GFR (MDRD) Non-Af 13 L BUN/Creatinine Ratio 29.9 H Glucose 185 H Lactic Acid 4.1 H* Calcium 8.4 L Troponin I < 0.015 Assessment/Plan All Active Problems (Last Reviewed 03/31/18 @ 11:23 by Panda Ferreira MD) Altered mental status (Acute) Hyperkalemia (Acute) Acute kidney injury on CKD stage III (Acute) GI bleed (Resolved 04/27/18) TIA (transient ischemic attack) (Acute) The patient is a 72 year old F with multiple comorbidities as listed above including history of CVA, diabetes mellitus type 2, hypertension, CKD stage III, pulmonary hypertension DNR CC was brought in from [facility] for being poorly responsive today. As per the , Mr. Tram Webber she has been lethargic, not eating or drinking for last 3 days. Patient is very dehydrated. The patient and her denies flulike symptoms, fever or chills in last 1 week. Patient also denies new lower urinary tract symptoms including burning micturition or increased frequency or urgency. Patient had Vences catheter in the ED and the urine is dark yellow. In ER, patient was found in moderate distress with heart rate 30s, blood pressure low, severely dehydrated. EKG shows idioventricular rate, 36/min. Patient was given atropine and heart rate is 57-46/min. Patient also about 2-3 L of normal saline bolus. Patient for acute kidney injury and CKD stage III with BUN/creatinine 107/3.58, K5.6, lactic acid 4.1. Chest x-ray shows left lung base atelectatic changes with blunted left CP angle. ER physician talked to hospice care Dr. Dawson and he thinks patient is in reversible condition including reversal of dehydration, treatment of possible sepsis as the patient lactic acid is high and metabolic derangements. 1. Acute encephalopathy most probably metabolic/infectious: Patient is being admitted on MedSur. IV fluid Ringer lactate to rehydrate. Monitor intake and output. Infectious workup ordered including blood cultures x2, UA and urine culture. Started empirically on IV ceftriaxone. Patient has high lactic acid most probably from hypoperfusion. We will hold antidepressant/SSRI medication. If patient mental status improved, resume Modafinil from tomorrow. 2. Acute kidney injury on CKD stage III with hyperkalemia most probably from dehydration: EKG changes with idioventricular rate and bradycardia probably secondary to hyperkalemia. Acute hyperkalemia cocktail treatment calcium gluconate, sodium bicarbonate, albuterol, D50 and insulin ordered. Kayexalate 30 g ordered. Repeat EKG after acute hyperkalemia treatment. Nephrology consult. Hold lisinopril. 3. Coronary artery disease status post stent with arrhythmia: Idioventricular rhythm with heart rate 36/min probably secondary to hyperkalemia. Cardiac monitoring. Rest as mentioned above. Hold beta-sarah. Patient had cardiac cath in December 2017 reported as EF 60% with normal LV size. A stage I diastolic dysfunction. Normal RV size and systolic function. Normal right and left atria. Mild eccentric MR, mild to moderate TR, RVSP 55 EMG cystoscopy moderate pulmonary hypertension. Normal aortic valve. Normal pulmonic valve. 4. Diabetes mellitus type 2: Accu-Chek before meals and at bedtime and cover with NovoLog sliding scale. Seizure disorder: Patient is on carbamazepine. Carbamazepine level tomorrow a.m. Hold night dose of carbamazepine 200 mg at bedtime. Titrate the dose of carbamazepine as per the note level. Multiple comorbidities including stroke, left carotid stenosis status post CEA, pulmonary hypertension, valvular heart disease, dyslipidemia and hypothyroidism: Home medication reconciliation done. End of life goal/MOLST: Patient's , Mr. Dayo Webber is power of tax attorney for health. Patient does not want artificial life support including intubation, tube feed, ventilator and/chest compression. Palliative care doctor Demar consulted. Patient is DNR CC. Clinical Impression(s) from Imaging Studies Chest X-Ray 05/03/18 14:31 IMPRESSION: Findings suggestive atelectatic changes at the left lung base with blunted left costophrenic angle. Code Visit Inpatient E&M: 76758 Init Hosp L3
[2018-05-03 19:15] LABS: Carbamazepine (Tegretol) 10.7 ug/mL (4.0-12.0)
[2018-05-03 19:51] LABS: Reflex Lactate? Y
[2018-05-03] MEDS: Dextrose 50%-Water 25 GM/50 ML DISP.SYRIN IV (20:21)
[2018-05-03] MEDS: Sodium Polystyrene Sulfonate 15 GM/60 ML UDC 30 GM PO (20:21)
[2018-05-03 20:27] LABS: Bacteria 0 SEEN /hpf (None Seen); Mucous, Urine 0 SEEN /hpf (<or=2+); Red Blood Cells-Urine 0 SEEN /hpf (0-5); White Blood Cells 0 SEEN /hpf (0-5)
[2018-05-03 20:33] LABS: Color, Urine Amber (Yellow); Glucose, Dipstick Normal (Normal); Ketone-Dipstick 5 mg/dl (Negative); Leukocyte Esterase-Dipstick 25 /ul (Negative); Nitrite-Dipstick Negative (Negative); Occult Blood-Urine 10 /ul (Negative); Protein-Dipstick Negative (Negative); Specific Gravity, Urine 1.025 (1.002-1.030); Urine Bilirubin Dipstick 1 mg/dL (Negative); Urine Clarity Clear (Clear); Urine Urobilinogen Normal (Normal)
[2018-05-03 20:45] LABS: Squamous Epithelial Cells - UA 0-5 SEEN /hpf (5-10)
[2018-05-03] MEDS: Lactated Ringers 1,000 ML 150 ML IV (21:02)
--- NOTE | 2018-05-03 21:37 | PCM.HOSP.N ---
Hospitalist Note Patient transitioned to ICU. Upon transition tearful, requesting avoidance of any further interventions or procedures with AM planned hospice transition. Currently DNR-CC. Discussed with staff and given patient preference all interventions aside comfort discontinued.
[2018-05-03 21:41] LABS: ALB/GLOB Ratio 0.9 RATIO (0.9-2.4); AST(SGOT) 252 U/L (15-37); Alanine Aminotransfer ALT/SGPT 214 U/L (13-56); Albumin, Serum 2.6 g/dL (3.2-5.0); Alkaline Phosphatase 80 U/L (45-117); Anion Gap 14 (5-15); BUN 103 mg/dL (7-18); BUN/Creat Ratio 29.8 RATIO (10-20); Calcium,Total 7.7 mg/dL (8.5-10.1); Chloride 110 mmol/L (98-107); Creatinine, Serum 3.46 mg/dL (0.55-1.02); EST Glomerular Filtration Rate 14 mL/min (>60); Est Glom Filt Rate - Afr Amer 17 mL/min (>60); Estimated Creatinine Clearance 10.25 ml/min; Globulin 2.9 g/dL (2.2-4.2); Glucose 149 mg/dL (74-106); Magnesium 2.1 mg/dL (1.6-2.6); Potassium 5.6 mmol/L (3.5-5.1); Protein, Total 5.5 g/dL (6.4-8.2); Sodium Level 141 mmol/L (136-145)
[2018-05-03 21:41] LABS: Bedside Glucose 167 mg/dL (70-110)
[2018-05-03 21:42] LABS: Lactic Acid 4.9 mmol/L (0.4-2.0)
--- NOTE | 2018-05-03 22:10 | NURSING ---
Vences catheter inserted in ED.
[2018-05-04] VITALS (7 sets, daily range): BP systolic 79–140; BP diastolic 22–50; PULSE 47–63; RESP 18–20; TEMP 36.4–37.3; O2SAT 93–100
--- NOTE | 2018-05-04 03:01 | NURSING ---
Report called to ALEKSANDR John on MS3. KASANDRA Dunlap transferring patient via bed to MD3 at this time.
[2018-05-04] MEDS: Lactated Ringers 1,000 ML 150 ML IV ×3 (03:21→17:24)
[2018-05-04] MEDS: Ondansetron 4 MG/2 ML Vial IV ×2 (06:34→17:24)
--- NOTE | 2018-05-04 10:31 | NURSING ---
This nurse spoke with Porsche at [facility]. Pt did not meet criteria for the IPU and did not sign hospice papers. According to Porsche, requested that pt be transferred back to [facility], skilled when ready. Will inform Martha GORE
--- NOTE | 2018-05-04 13:26 | PCM.PROGNOTE ---
Patient Problems: Active and Suspected Problems (Last Reviewed 03/31/18 @ 11:23 by Panda Ferreira MD) Altered mental status (Acute) Hyperkalemia (Acute) Acute kidney injury on CKD stage III (Acute) Subjective: All events of the past 24 hours have been reviewed. The patient is a 72-year-old female with a past medical history of CVA, diabetes mellitus type 2, hypertension, trigeminal neuralgia, meningioma which was excised with gamma knife therapy, chronic renal failure stage III, pulmonary hypertension and hypothyroidism who is a resident of [facility]. She was brought to the emergency department at [facility] on 05/03/2018 with altered level of consciousness. Her stated that she had been more lethargic the past few days and was not eating or drinking. She has been diagnosed with acute on chronic renal failure with hyperkalemia. She is a DNR CC. apparently refused by hospice because she has a reversible condition but, she is a DNR CC and she not even have been admitted to the hospital? She was in the rehab unit at [facility] from 03/30/28 for a R MCA CVA and a small L MCA stroke. She suboptimally tolerated therapy and was discharged to [facility] on 04/15/18. AF, very bradycardic at times. BP's have been low but are improving with fluids. All lab was reviewed. - Physical Exam General: Well developed, - - she is very lethargic and speech is hard to understand....she is speaking very softly and drops off to sleep while talking. HEENT: Atraumatic, Normocephalic Oral: Dry Mucosa Neck: Supple, Trachea Midline Lungs: Clear to auscultation, Diminished Cardiovascular: Regular Rhythm, Normal S1, Normal S2, No murmurs, Bradycardic, - - not on telemetry because she is DNR CC Abdomen: Soft, Non-Distended, Hypoactive Bowel Sounds, - - no guarding with palpation Extremities: No clubbing, No cyanosis, Edema - hands and feet - non pitting Skin: No rashes Vital Signs Temp Pulse Resp BP Pulse Ox 98.5 F 52 L 20 H 107/27 L 100 05/04/18 10:59 05/04/18 10:59 05/04/18 10:59 05/04/18 10:59 05/04/18 10:59 Oxygen Flow Rate (L/min) 2 Oxygen Delivery Method Nasal Cannula Weight: 173 lb Body Mass Index (BMI) 33.7 Finger Stick Blood Glucose 134 Intake and Output for Last 24 Hours 05/02/18 05/03/18 05/04/18 23:59 23:59 23:59 Intake Total 562 / 562 418 / 418 Output Total 150 / 150 40 / 40 Balance 412 / 412 378 / 378 Microbiology Past 72 Hours 05/03/18 17:00 Urine Culture - Preliminary Urine Catheter - Catheter GNR lactose flooring sales manager Laboratory Tests Past 24 Hrs 05/03/18 05/03/18 05/03/18 15:45 15:45 15:45 WBC 15.9 H RBC 2.68 L Hgb 8.9 L Hct 29.5 L MCV 110.1 H MCH 33.2 H MCHC 30.2 L RDW 17.0 H RDW Differential 64.0 H Plt Count 208 MPV 12.1 H Immature Gran % (Auto) 0.200 Neut % (Auto) 90.9 H Lymph % (Auto) 4.0 L [place] % (Auto) 4.8 Eos % (Auto) 0.0 Baso % (Auto) 0.1 Absolute Neuts (auto) 14.4 H Absolute Lymphs (auto) 0.64 L Total Counted Not Reportable Nucleated RBC % 0.9 Absolute Retic 0.15 Sodium 138 Potassium 5.6 H Chloride 108 H Carbon Dioxide 18.0 L Anion Gap 12 BUN 107 H* Creatinine 3.58 H Estim Creat Clear Calc 10.40 Est GFR (MDRD) Af Amer 16 L Est GFR (MDRD) Non-Af 13 L BUN/Creatinine Ratio 29.9 H Glucose 185 H Lactic Acid 4.1 H* Calcium 8.4 L Magnesium Total Bilirubin AST ALT Alkaline Phosphatase Troponin I < 0.015 Total Protein Albumin Globulin Albumin/Globulin Ratio Urine Color Urine Clarity Urine pH Ur Specific [place] Urine Protein Urine Glucose (UA) Urine Ketones Urine Occult Blood Urine Nitrite Urine Bilirubin Urine Urobilinogen Ur Leukocyte Esterase Urine RBC Urine WBC Ur Squamous Epith Cells Urine Bacteria Urine Mucus Carbamazepine 05/03/18 05/03/18 05/03/18 15:45 17:00 20:40 WBC RBC Hgb Hct MCV MCH MCHC RDW RDW Differential Plt Count MPV Immature Gran % (Auto) Neut % (Auto) Lymph % (Auto) [place] % (Auto) Eos % (Auto) Baso % (Auto) Absolute Neuts (auto) Absolute Lymphs (auto) Total Counted Nucleated RBC % Absolute Retic Sodium 141 Potassium 5.6 H Chloride 110 H Carbon Dioxide 17.0 L Anion Gap 14 BUN 103 H* Creatinine 3.46 H Estim Creat Clear Calc 10.25 Est GFR (MDRD) Af Amer 17 L Est GFR (MDRD) Non-Af 14 L BUN/Creatinine Ratio 29.8 H Glucose 149 H Lactic Acid Calcium 7.7 L Magnesium 2.1 Total Bilirubin 0.30 AST 252 H ALT 214 H Alkaline Phosphatase 80 Troponin I Total Protein 5.5 L Albumin 2.6 L Globulin 2.9 Albumin/Globulin Ratio 0.9 Urine Color Megan Urine Clarity Clear Urine pH 5.0 Ur Specific [place] 1.025 Urine Protein Negative Urine Glucose (UA) Normal Urine Ketones 5 H Urine Occult Blood 10 H Urine Nitrite Negative Urine Bilirubin 1 H Urine Urobilinogen Normal Ur Leukocyte Esterase 25 H Urine RBC 0 SEEN Urine WBC 0 SEEN Ur Squamous Epith Cells 0-5 SEEN Urine Bacteria 0 SEEN Urine Mucus 0 SEEN Carbamazepine 10.7 05/03/18 20:40 WBC RBC Hgb Hct MCV MCH MCHC RDW RDW Differential Plt Count MPV Immature Gran % (Auto) Neut % (Auto) Lymph % (Auto) [place] % (Auto) Eos % (Auto) Baso % (Auto) Absolute Neuts (auto) Absolute Lymphs (auto) Total Counted Nucleated RBC % Absolute Retic Sodium Potassium Chloride Carbon Dioxide Anion Gap BUN Creatinine Estim Creat Clear Calc Est GFR (MDRD) Af Amer Est GFR (MDRD) Non-Af BUN/Creatinine Ratio Glucose Lactic Acid 4.9 H* Calcium Magnesium Total Bilirubin AST ALT Alkaline Phosphatase Troponin I Total Protein Albumin Globulin Albumin/Globulin Ratio Urine Color Urine Clarity Urine pH Ur Specific [place] Urine Protein Urine Glucose (UA) Urine Ketones Urine Occult Blood Urine Nitrite Urine Bilirubin Urine Urobilinogen Ur Leukocyte Esterase Urine RBC Urine WBC Ur Squamous Epith Cells Urine Bacteria Urine Mucus Carbamazepine POC Glucose 05/03/18 21:02 POC Glucose 167 H Medical Necessity - Tobacco Use Smoking Status: Never smoker Assessment/Plan All Active Problems (Last Reviewed 03/31/18 @ 11:23 by Panda Ferreira MD) Altered mental status (Acute) Hyperkalemia (Acute) Acute kidney injury on CKD stage III (Acute) GI bleed (Resolved 04/27/18) TIA (transient ischemic attack) (Acute) Impressions 1. acute on chronic renal failure stage III with hyperkalemia likely due to profound dehydration - not eating or drinking 2. Hyperkalemia 3. Acute metabolic encephalopathy secondary to acute renal failure 4. Marked bradycardia with idioventricular rhythm in the emergency department-possibly secondary to hyperkalemia. 5. Diabetes mellitus type 2 6. Recent right MCA CVA with small left MCA CVA-did not do well in the rehab unit and was discharged to a lower level of care at [facility] 7. History of trigeminal neuralgia 8. Coronary artery disease with history of PCI 9. Pulmonary hypertension with an estimated right ventricular systolic pressure of 55 10. History of meningioma-status post gamma knife surgery Will need to determine whether she is actually a DNR CC.....who made that decision...does she have a POA. Per the records from when she was in rehab she was disoriented and confused. Continue fluids for now. Recheck some lab in the AM. If the CREAT is not improving then she likely has ATN Code Visit Inpatient E&M: 09633 Subs Hosp L2
--- NOTE | 2018-05-04 13:29 | PN_ITS ---
Patient Problems: Active and Suspected Problems (Last Reviewed 03/31/18 @ 11:23 by Panda Ferreira MD) Altered mental status (Acute) Hyperkalemia (Acute) Acute kidney injury on CKD stage III (Acute) Subjective: All events of the past 24 hours have been reviewed. The patient is a 72-year-old female with a past medical history of CVA, diabetes mellitus type 2, hypertension, trigeminal neuralgia, meningioma which was excised with gamma knife therapy, chronic renal failure stage III, pulmonary hypertension and hypothyroidism who is a resident of [facility]. She was brought to the emergency department at [facility] on 05/03/2018 with altered level of consciousness. Her stated that she had been more lethargic the past few days and was not eating or drinking. She has been diagnosed with acute on chronic renal failure with hyperkalemia. She is a DNR CC. apparently refused by hospice because she has a reversible condition but, she is a DNR CC and she not even have been admitted to the hospital? She was in the rehab unit at [facility] from 03/30/28 for a R MCA CVA and a small L MCA stroke. She suboptimally tolerated therapy and was discharged to [facility] on 04/15/18. AF, very bradycardic at times. BP's have been low but are improving with fluids. All lab was reviewed. - Physical Exam General: Well developed, - - she is very lethargic and speech is hard to understand....she is speaking very softly and drops off to sleep while talking. HEENT: Atraumatic, Normocephalic Oral: Dry Mucosa Neck: Supple, Trachea Midline Lungs: Clear to auscultation, Diminished Cardiovascular: Regular Rhythm, Normal S1, Normal S2, No murmurs, Bradycardic, - - not on telemetry because she is DNR CC Abdomen: Soft, Non-Distended, Hypoactive Bowel Sounds, - - no guarding with palpation Extremities: No clubbing, No cyanosis, Edema - hands and feet - non pitting Skin: No rashes Vital Signs Temp Pulse Resp BP Pulse Ox 98.5 F 52 L 20 H 107/27 L 100 05/04/18 10:59 05/04/18 10:59 05/04/18 10:59 05/04/18 10:59 05/04/18 10:59 Oxygen Flow Rate (L/min) 2 Oxygen Delivery Method Nasal Cannula Weight: 173 lb Body Mass Index (BMI) 33.7 Finger Stick Blood Glucose 134 Intake and Output for Last 24 Hours 05/02/18 05/03/18 05/04/18 23:59 23:59 23:59 Intake Total 562 / 562 418 / 418 Output Total 150 / 150 40 / 40 Balance 412 / 412 378 / 378 Microbiology Past 72 Hours 05/03/18 17:00 Urine Culture - Preliminary Urine Catheter - Catheter 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 Laboratory Tests Past 24 Hrs 05/03/18 05/03/18 05/03/18 15:45 15:45 15:45 WBC 15.9 H RBC 2.68 L Hgb 8.9 L Hct 29.5 L MCV 110.1 H MCH 33.2 H MCHC 30.2 L RDW 17.0 H RDW Differential 64.0 H Plt Count 208 MPV 12.1 H Immature Gran % (Auto) 0.200 Neut % (Auto) 90.9 H Lymph % (Auto) 4.0 L [place] % (Auto) 4.8 Eos % (Auto) 0.0 Baso % (Auto) 0.1 Absolute Neuts (auto) 14.4 H Absolute Lymphs (auto) 0.64 L Total Counted Not Reportable Nucleated RBC % 0.9 Absolute Retic 0.15 Sodium 138 Potassium 5.6 H Chloride 108 H Carbon Dioxide 18.0 L Anion Gap 12 BUN 107 H* Creatinine 3.58 H Estim Creat Clear Calc 10.40 Est GFR (MDRD) Af Amer 16 L Est GFR (MDRD) Non-Af 13 L BUN/Creatinine Ratio 29.9 H Glucose 185 H Lactic Acid 4.1 H* Calcium 8.4 L Magnesium Total Bilirubin AST ALT Alkaline Phosphatase Troponin I < 0.015 Total Protein Albumin Globulin Albumin/Globulin Ratio Urine Color Urine Clarity Urine pH Ur Specific [place] Urine Protein Urine Glucose (UA) Urine Ketones Urine Occult Blood Urine Nitrite Urine Bilirubin Urine Urobilinogen Ur Leukocyte Esterase Urine RBC Urine WBC Ur Squamous Epith Cells Urine Bacteria Urine Mucus Carbamazepine 05/03/18 05/03/18 05/03/18 15:45 17:00 20:40 WBC RBC Hgb Hct MCV MCH MCHC RDW RDW Differential Plt Count MPV Immature Gran % (Auto) Neut % (Auto) Lymph % (Auto) [place] % (Auto) Eos % (Auto) Baso % (Auto) Absolute Neuts (auto) Absolute Lymphs (auto) Total Counted Nucleated RBC % Absolute Retic Sodium 141 Potassium 5.6 H Chloride 110 H Carbon Dioxide 17.0 L Anion Gap 14 BUN 103 H* Creatinine 3.46 H Estim Creat Clear Calc 10.25 Est GFR (MDRD) Af Amer 17 L Est GFR (MDRD) Non-Af 14 L BUN/Creatinine Ratio 29.8 H Glucose 149 H Lactic Acid Calcium 7.7 L Magnesium 2.1 Total Bilirubin 0.30 AST 252 H ALT 214 H Alkaline Phosphatase 80 Troponin I Total Protein 5.5 L Albumin 2.6 L Globulin 2.9 Albumin/Globulin Ratio 0.9 Urine Color Megan Urine Clarity Clear Urine pH 5.0 Ur Specific [place] 1.025 Urine Protein Negative Urine Glucose (UA) Normal Urine Ketones 5 H Urine Occult Blood 10 H Urine Nitrite Negative Urine Bilirubin 1 H Urine Urobilinogen Normal Ur Leukocyte Esterase 25 H Urine RBC 0 SEEN Urine WBC 0 SEEN Ur Squamous Epith Cells 0-5 SEEN Urine Bacteria 0 SEEN Urine Mucus 0 SEEN Carbamazepine 10.7 05/03/18 20:40 WBC RBC Hgb Hct MCV MCH MCHC RDW RDW Differential Plt Count MPV Immature Gran % (Auto) Neut % (Auto) Lymph % (Auto) [place] % (Auto) Eos % (Auto) Baso % (Auto) Absolute Neuts (auto) Absolute Lymphs (auto) Total Counted Nucleated RBC % Absolute Retic Sodium Potassium Chloride Carbon Dioxide Anion Gap BUN Creatinine Estim Creat Clear Calc Est GFR (MDRD) Af Amer Est GFR (MDRD) Non-Af BUN/Creatinine Ratio Glucose Lactic Acid 4.9 H* Calcium Magnesium Total Bilirubin AST ALT Alkaline Phosphatase Troponin I Total Protein Albumin Globulin Albumin/Globulin Ratio Urine Color Urine Clarity Urine pH Ur Specific [place] Urine Protein Urine Glucose (UA) Urine Ketones Urine Occult Blood Urine Nitrite Urine Bilirubin Urine Urobilinogen Ur Leukocyte Esterase Urine RBC Urine WBC Ur Squamous Epith Cells Urine Bacteria Urine Mucus Carbamazepine POC Glucose 05/03/18 21:02 POC Glucose 167 H Medical Necessity - Tobacco Use Smoking Status: Never smoker Assessment/Plan All Active Problems (Last Reviewed 03/31/18 @ 11:23 by Panda Ferreira MD) Altered mental status (Acute) Hyperkalemia (Acute) Acute kidney injury on CKD stage III (Acute) GI bleed (Resolved 04/27/18) TIA (transient ischemic attack) (Acute) Impressions 1. acute on chronic renal failure stage III with hyperkalemia likely due to profound dehydration - not eating or drinking 2. Hyperkalemia 3. Acute metabolic encephalopathy secondary to acute renal failure 4. Marked bradycardia with idioventricular rhythm in the emergency department- possibly secondary to hyperkalemia. 5. Diabetes mellitus type 2 6. Recent right MCA CVA with small left MCA CVA-did not do well in the rehab unit and was discharged to a lower level of care at [facility] 7. History of trigeminal neuralgia 8. Coronary artery disease with history of PCI 9. Pulmonary hypertension with an estimated right ventricular systolic pressure of 55 10. History of meningioma-status post gamma knife surgery Will need to determine whether she is actually a DNR CC.....who made that decision...does she have a POA. Per the records from when she was in rehab she was disoriented and confused. Continue fluids for now. Recheck some lab in the AM. If the CREAT is not improving then she likely has ATN Code Visit Inpatient E&M: 06375 Subs Hosp L2
--- NOTE | 2018-05-04 15:00 | CASEMGMT ---
Social Work Note SOFÍA updated that pt will be returning to [facility] skilled without Hospice Services. SOFÍA met with pt and pt's Tram. [place] confirms that pt will be returning to [facility] skilled without Hospice Services. [place] asked this worker about completing Durable POA. SOFÍA explained that this worker is unable to complete Durable POA and to speak with a driver starting gate. [place] states understanding. SOFÍA faxed updated clinicals to [facility]. SOFÍA placed a call to Giulia at [facility] who confirms pt is skilled at [facility] and is able to return skilled at [facility] once medically cleared. Plan: [facility] once medically cleared Martha Marin DUMP ATTENDANT, LABORATORY EQUIPMENT INSTALLER
--- NOTE | 2018-05-04 16:54 | CHAPLAIN ---
Type of Pastoral Visit ___ Initial Visit ___ Follow-up Visit ___ On-call Visit _x__ General Patient Visit ___ Spiritual Assessment ___ Family Conference ___ Bereavement ___ Rapid Response ___ Code Blue ___ Other (describe below) Pastoral Care Referral From ___ Patient _x__ Family ___ Nurse ___ Physician ___ News Correspondent ___ Barrel Washer ___ Other (describe below) Sacrament/Intervention _x__ Active listening ___ Anointing ___ Scientology ___ Bereavement ___ Communion ___ Shirlene exploration ___ ___ Life review ___ Prayer ___ Reconciliation ___ Sacrament of Sick ___ Supportive presence ___ Wedding ___ Other (describe below) Pastoral Comments met with spouse in hallway as pt was in bathroom; spouse talked about his inability to really help his and how much it puts on him to do for her and she is not getting better but hospice would not accept her; offered more support as desired
[2018-05-05] MEDS: Lactated Ringers 1,000 ML 150 ML IV ×2 (01:08→07:36)
[2018-05-05 03:06] VITALS: BP 112/24; PULSE 40; RESP 20; TEMP 37.6; O2SAT 93
--- NOTE | 2018-05-05 07:56 | PCM.PROGNOTE ---
Patient Problems: Active and Suspected Problems (Last Reviewed 03/31/18 @ 11:23 by Panda Ferreira MD) Altered mental status (Acute) Hyperkalemia (Acute) Acute kidney injury on CKD stage III (Acute) Subjective: All events of the past 24 hours of been reviewed. The patient's met with hospice however she is not appropriate for the hospice inpatient unit at this time. T-max over the past 24 hours is 99.6 orally. Pulse rate today is 40. Blood pressure is stable. She is maintaining a pulse ox of 93-100% on a 2 L nasal cannula. She only had 25 cc orally yesterday. Fluid balance on 05/04/2018 was +2155. She is positive 4348 since admission. urine OP is very poor........only 120cc on 05/04/18 All lab was reviewed. White blood cell count today is 6.8 with 80% neutrophils. The hemoglobin is down to 6.9 with hydration and her platelet count is 121,000 today. Creatinine is 2.75, down from 3.58 at admission but the BUN is still 107. Potassium is 3.8. Versus high at 5.8. Urine culture is growing less than 1000 colonies of a gram-negative elisha lactose loan services professional. She is more alert today when aroused ....able to follow commands but falls right back to sleep. Denies pain, SOB. Not coughing. she had 100 cc of urine overnight. She has only made 370 cc of urine since being at the hospital. She is not eating or drinking.....even for her . - Physical Exam General: Cooperative, No apparent distress, Confused, - - arouses easily and says good morning. Tells me she is thirsty but when I offered ice chips she said no HEENT: Atraumatic, PERRLA, Normocephalic Oral: Dry Mucosa Neck: Supple, No JVD, No Nodes, Trachea Midline Lungs: Clear to auscultation, Diminished Cardiovascular: Regular rate, Normal S1, Normal S2, No murmurs, Bradycardic, No Gallop Abdomen: Bowel Sounds Present, Soft, Non Tender, Non-Distended Extremities: No clubbing, No cyanosis, Edema - of the hands and the feet Skin: No rashes, No breakdown Neurological: Cranial nerves II-XII grossly intact, - - she has Left side neglect Vital Signs Temp Pulse Resp BP Pulse Ox 99.6 F H 40 L 20 H 112/24 L 93 05/05/18 03:06 05/05/18 03:06 05/05/18 03:06 05/05/18 03:06 05/05/18 03:06 Oxygen Flow Rate (L/min) 2 Oxygen Delivery Method Nasal Cannula Weight: 173 lb Body Mass Index (BMI) 33.7 Finger Stick Blood Glucose 134 Intake and Output for Last 24 Hours 05/03/18 05/04/18 05/05/18 23:59 23:59 23:59 Intake Total 562 / 562 2275 / 2275 1881 / 1881 Output Total 150 / 150 120 / 120 100 / 100 Balance 412 / 412 2155 / 2155 1781 / 1781 Microbiology Past 72 Hours 05/03/18 17:00 Urine Culture - Preliminary Urine Catheter - Catheter GNR lactose loan services professional Medical Necessity - Tobacco Use Smoking Status: Never smoker Assessment/Plan All Active Problems (Last Reviewed 03/31/18 @ 11:23 by Panda Ferreira MD) Altered mental status (Acute) Hyperkalemia (Acute) Acute kidney injury on CKD stage III (Acute) GI bleed (Resolved 04/27/18) TIA (transient ischemic attack) (Acute) Impressions 1. acute oliguric renal failure on chronic renal failure stage III with hyperkalemia likely due to profound dehydration - not eating or drinking 2. Hyperkalemia-resolved 3. Acute metabolic encephalopathy secondary to acute renal failure 4. Marked bradycardia with idioventricular rhythm in the emergency department-possibly secondary to hyperkalemia. 5. Diabetes mellitus type 2 6. Recent right MCA CVA with small left MCA CVA-did not do well in the rehab unit and was discharged to a lower level of care at [facility] 7. History of trigeminal neuralgia 8. Coronary artery disease with history of PCI 9. Pulmonary hypertension with an estimated right ventricular systolic pressure of 55 10. History of meningioma-status post gamma knife surgery 11. severe anemia awaiting the lab results. Continue the IV fluids Need to having a meeting with the pt, her , myself and the to determine if in fact she is DNR CC and who made that decision......is there any documentation. CODE STATUS: Discussed code status at length with Mr. Tram Webber including the difference between FULL CODE, DNR CCA and DNR CC status. All questions were answered. An order for DNR CC was entered into the computer. A total of 20 minutes face to face time was devoted to advanced care planning. I met with both the and the SW. I also spoke with Dr. Cooley at hospice and explained that the patient recently had a right MCA stroke and a left MCA stroke and failed her time at rehab. She has been confused and disoriented since her strokes and was transferred to [facility] from rehab. She continues to be confused and she is not eating or drinking. Hospice did not get the appropriate info when called the other day and per Dr. Cooley she is hospice appropriate and he advised us to call again for a hospice consult. Will call hospice...in my opinion she has ATN and this is not likely going to improve. she is very oliguric. She is DNR CC. I feel that she is appropriate for hospice at this time. Will add some pain medication. Stop the IV fluids and DC the isbell Code Visit Inpatient E&M: 48697 Subs Hosp L2 Procedures: 70771 Advncd Care Plan 30 Min
--- NOTE | 2018-05-05 08:02 | PN_ITS ---
Patient Problems: Active and Suspected Problems (Last Reviewed 03/31/18 @ 11:23 by Panda Ferreira MD) Altered mental status (Acute) Hyperkalemia (Acute) Acute kidney injury on CKD stage III (Acute) Subjective: All events of the past 24 hours of been reviewed. The patient's met with hospice however she is not appropriate for the hospice inpatient unit at this time. T-max over the past 24 hours is 99.6 orally. Pulse rate today is 40. Blood pressure is stable. She is maintaining a pulse ox of 93-100% on a 2 L nasal cannula. She only had 25 cc orally yesterday. Fluid balance on 05/04/2018 was +2155. She is positive 4348 since admission. urine OP is very poor........only 120cc on 05/04/18 All lab was reviewed. White blood cell count today is 6.8 with 80% neutrophils. The hemoglobin is down to 6.9 with hydration and her platelet count is 121,000 today. Creatinine is 2.75, down from 3.58 at admission but the BUN is still 107. Potassium is 3.8. Versus high at 5.8. Urine culture is growing less than 1000 colonies of a gram-negative elisha lactose package winder. She is more alert today when aroused ....able to follow commands but falls right back to sleep. Denies pain, SOB. Not coughing. she had 100 cc of urine overnight. She has only made 370 cc of urine since being at the hospital. She is not eating or drinking.....even for her . - Physical Exam General: Cooperative, No apparent distress, Confused, - - arouses easily and says good morning. Tells me she is thirsty but when I offered ice chips she said no HEENT: Atraumatic, PERRLA, Normocephalic Oral: Dry Mucosa Neck: Supple, No JVD, No Nodes, Trachea Midline Lungs: Clear to auscultation, Diminished Cardiovascular: Regular rate, Normal S1, Normal S2, No murmurs, Bradycardic, No Gallop Abdomen: Bowel Sounds Present, Soft, Non Tender, Non-Distended Extremities: No clubbing, No cyanosis, Edema - of the hands and the feet Skin: No rashes, No breakdown Neurological: Cranial nerves II-XII grossly intact, - - she has Left side neglect Vital Signs Temp Pulse Resp BP Pulse Ox 99.6 F H 40 L 20 H 112/24 L 93 05/05/18 03:06 05/05/18 03:06 05/05/18 03:06 05/05/18 03:06 05/05/18 03:06 Oxygen Flow Rate (L/min) 2 Oxygen Delivery Method Nasal Cannula Weight: 173 lb Body Mass Index (BMI) 33.7 Finger Stick Blood Glucose 134 Intake and Output for Last 24 Hours 05/03/18 05/04/18 05/05/18 23:59 23:59 23:59 Intake Total 562 / 562 2275 / 2275 1881 / 1881 Output Total 150 / 150 120 / 120 100 / 100 Balance 412 / 412 2155 / 2155 1781 / 1781 Microbiology Past 72 Hours 05/03/18 17:00 Urine Culture - Preliminary Urine Catheter - Catheter GNR lactose package winder Medical Necessity - Tobacco Use Smoking Status: Never smoker Assessment/Plan All Active Problems (Last Reviewed 03/31/18 @ 11:23 by Panda Ferreira MD) Altered mental status (Acute) Hyperkalemia (Acute) Acute kidney injury on CKD stage III (Acute) GI bleed (Resolved 04/27/18) TIA (transient ischemic attack) (Acute) Impressions 1. acute oliguric renal failure on chronic renal failure stage III with hyperkalemia likely due to profound dehydration - not eating or drinking 2. Hyperkalemia-resolved 3. Acute metabolic encephalopathy secondary to acute renal failure 4. Marked bradycardia with idioventricular rhythm in the emergency department- possibly secondary to hyperkalemia. 5. Diabetes mellitus type 2 6. 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 History of trigeminal neuralgia 8. Coronary artery disease with history of PCI 9. Pulmonary hypertension with an estimated right ventricular systolic pressure of 55 10. History of meningioma-status post gamma knife surgery 11. severe anemia awaiting the lab results. Continue the IV fluids Need to having a meeting with the pt, her , myself and the to determine if in fact she is DNR CC and who made that decision......is there any documentation. CODE STATUS: Discussed code status at length with Mr. Tram Webber including the difference between FULL CODE, DNR CCA and DNR CC status. All questions were answered. An order for DNR CC was entered into the computer. A total of 20 minutes face to face time was devoted to advanced care planning. I met with both the and the SW. I also spoke with Dr. Cooley at hospice and explained that the patient recently had a right MCA stroke and a left MCA stroke and failed her time at rehab. She has been confused and disoriented since her strokes and was transferred to [facility] from rehab. She continues to be confused and she is not eating or drinking. Hospice did not get the appropriate info when called the other day and per Dr. Cooley she is hospice appropriate and he advised us to call again for a hospice consult. Will call hospice...in my opinion she has ATN and this is not likely going to improve. she is very oliguric. She is DNR CC. I feel that she is appropriate for hospice at this time. Will add some pain medication. Stop the IV fluids and DC the isbell Code Visit Inpatient E&M: 39223 Subs Hosp L2 Procedures: [id number] Advncd Care Plan 30 Min
[2018-05-05 08:17] VITALS: O2SAT 93
[2018-05-05 08:43] LABS: Absolute Lymphocyte Count 0.78 X10^3/ul (0.83-4.51); Absolute Neutrophil Count 5.5 X10^3/uL (2.0-7.7); Basophil# 0.02 X10^3/uL; Basophil% 0.3 % (0-1); Eosinophil# 0.06 X10^3/uL; Eosinophils% 0.9 % (0-5); Hematocrit 22.8 % (37-47); Hemoglobin 6.9 g/dl (12.0-15.0); Lymphocyte # 0.78 X10^3/ul (4.0); Lymphocyte % 11.4 % (19-41); Mean Corp Hgb Conc 30.3 g/gl (32-36); Mean Corpuscular Volume 109.1 fL (81-99); Mean Platelet Vol. 12.2 fl (6.2-12.0); Monocyte# 0.45 X10^3/uL; Monocyte% 6.6 % (0-10); Neutrophil # 5.53 X10^3/uL (2.7-7.7); Neutrophil % 80.8 % (47-70); Platelet Count 121 K/mm3 (150-450); RBC Distribution Width CV 17.4 % (11.6-14.6); RBC Distribution Width SD 66.1 fl (35.1-43.9); Red Blood Count 2.09 M/mm3 (4.2-5.4); White Blood Count 6.8 K/mm3 (4.4-11.0)
[2018-05-05 08:45] LABS: POSITIVE COUNT NO; POSITIVE DIFFERENTIAL NO; POSITIVE MORPHOLOGY YES
[2018-05-05 08:46] LABS: Differential Indicated SCAN CRITERIA MET
[2018-05-05 09:11] LABS: Anisocytosis 1+; Differential Comment SCANNED
[2018-05-05 09:12] LABS: Anion Gap 12 (5-15); BUN 107 mg/dL (7-18); BUN/Creat Ratio 38.9 RATIO (10-20); Calcium,Total 7.6 mg/dL (8.5-10.1); Chloride 111 mmol/L (98-107); Creatinine, Serum 2.75 mg/dL (0.55-1.02); EST Glomerular Filtration Rate 18 mL/min (>60); Est Glom Filt Rate - Afr Amer 22 mL/min (>60); Estimated Creatinine Clearance 12.89 ml/min; Glucose 89 mg/dL (74-106); Magnesium 1.8 mg/dL (1.6-2.6); Polychromasia RARE; Potassium 3.8 mmol/L (3.5-5.1); Sodium Level 143 mmol/L (136-145)
[2018-05-05 09:13] LABS: Phosphorus 5.8 mg/dL (2.5-4.9)
[2018-05-05 09:21] LABS: CPK Total, Creatine Kinase 57 U/L (26-192)
[2018-05-05 09:43] LABS: Carbamazepine (Tegretol) 5.7 ug/mL (4.0-12.0)
[2018-05-05 09:55] VITALS: BP 154/44; PULSE 65; RESP 20; TEMP 37; O2SAT 98
[2018-05-05 14:00] VITALS: BP 124/48; PULSE 70; RESP 20; TEMP 37.2; O2SAT 98
--- NOTE | 2018-05-05 16:20 | CASEMGMT ---
Social Work Note 11:30am SW had meeting with pt's and physician in regards to code status and Hospice consult. Pt's agreeable to Hospice consult. SOFÍA offered support to pt and informed [place] that this worker will keep [facility] updated. 13:30pm SW received call from physician stating pt has been approved for inpatient hospice and liaison will be coming to [facility] around 2:00pm to meet with pt and pt's . 14:00pm Joellen with [facility] informed this worker that pt has been approved for inpatient hospice and pt's signed paperwork. Pt will be transported to inpatient [facility] today. 14:15pm SOFÍA placed a call to Giulia at [facility] and updated her that pt will be going to inpatient [facility]. Plan: Pt to discharge to inpatient [facility] today Martha Marin GROVE WORKER, FERMENTER
--- NOTE | 2018-05-08 20:19 | DS.PCM_ITS ---
Discharge Date and Diagnosis Date of Admission: 05/03/18 Date of Discharge: 05/06/18 - Primary Discharge Diagnosis Acute oliguric renal failure on chronic renal failure stage III with hyperkalemia secondary to profound dehydration Hyperkalemia Acute metabolic encephalopathy secondary to acute renal failure Severe bradycardia with idioventricular rhythm secondary to hyperkalemia - Secondary Discharge Diagnosis Chronic Problems (Last Reviewed 03/31/18 @ 11:23 by Panda Ferreira MD) Stroke (Chronic) Carotid stenosis, left (Chronic) Nonrheumatic aortic (valve) stenosis (Chronic) Pulmonary hypertension (Chronic) Nonrheumatic tricuspid (valve) insufficiency (Chronic) Nonrheumatic mitral (valve) insufficiency (Chronic) Nonrheumatic mitral (valve) prolapse (Chronic) CKD (chronic kidney disease) stage 3, GFR 30-59 ml/min (Chronic) Type 2 diabetes mellitus (Chronic) Essential hypertension (Chronic) Carotid artery stenosis (Chronic) Left Presence of stent in coronary artery (Chronic ~1999) PTCA/Stent to the LAD 1999 Atherosclerotic heart disease of [place] coronary artery without angina pectoris (Chronic) Hyperlipemia (Chronic) Hypothyroidism (Chronic) Hospital Course and Treatment Imaging Results: Clinical Impression(s) from Imaging Studies Chest X-Ray 05/03/18 14:31 IMPRESSION: Findings suggestive atelectatic changes at the left lung base with blunted left costophrenic angle. Electronically Signed: Amandeep Dawkins, at 15:05 EDT , Service support , Laboratory Tests 05/05/18 05/05/18 05/05/18 Range/Units 09:02 08:38 08:32 WBC (4.4-11.0) K/mm3 RBC (4.2-5.4) M/mm3 Hgb (12.0-15.0) g/dl Hct (37-47) % MCV (81-99) fL MCH (27.0-32.0) pg MCHC (32-36) g/gl RDW (11.6-14.6) % RDW Differential (35.1-43.9) fl Plt Count (150-450) K/mm3 MPV (6.2-12.0) fl Immature Gran % (Auto) (0.0-0.9) % Neut % (Auto) (47-70) % Lymph % (Auto) (19-41) % [place] % (Auto) (0-10) % Eos % (Auto) (0-5) % Baso % (Auto) (0-1) % Absolute Neuts (auto) (2.0-7.7) X10^3/uL Absolute Lymphs (auto) (0.83-4.51) X10^3/ul Total Counted Nucleated RBC % (0-5) % Differential Comment Polychromasia Anisocytosis Absolute Retic (0-5) 10^3/uL Sodium (136-145) mmol/L Potassium (3.5-5.1) mmol/L Chloride (98-107) mmol/L Carbon Dioxide (21.0-32.0) mmol/L Anion Gap (5-15) BUN (7-18) mg/dL Creatinine (0.55-1.02) mg/dL Estim Creat Clear Calc ml/min Est GFR (MDRD) Af Amer (>60) mL/min Est GFR (MDRD) Non-Af (>60) mL/min BUN/Creatinine Ratio (10-20) RATIO Glucose (74-106) mg/dL Lactic Acid (0.4-2.0) mmol/L Calcium (8.5-10.1) mg/dL Phosphorus 5.8 H (2.5-4.9) mg/dL Magnesium (1.6-2.6) mg/dL Total Bilirubin (0.20-1.00) mg/dL AST (15-37) U/L ALT (13-56) U/L Alkaline Phosphatase (45-117) U/L Total Creatine Kinase 57 (26-192) U/L Troponin I (<0.045) ng/mL Total Protein (6.4-8.2) g/dL Albumin (3.2-5.0) g/dL Globulin (2.2-4.2) g/dL Albumin/Globulin Ratio (0.9-2.4) RATIO Urine Color (Yellow) Urine Clarity (Clear) Urine pH (5.0 - 8.0) Ur Specific [place] (1.002-1.030) Urine Protein (Negative) mg/dl Urine Glucose (UA) (Normal) mg/dl Urine Ketones (Negative) mg/dl Urine Occult Blood (Negative) /ul Urine Nitrite (Negative) Urine Bilirubin (Negative) mg/dL Urine Urobilinogen (Normal) mg/dl Ur Leukocyte Esterase (Negative) /ul Urine RBC (0-5) /hpf Urine WBC (0-5) /hpf Ur Squamous Epith Cells (5-10) /hpf Urine Bacteria (None Seen) /hpf Urine Mucus (<or=2+) /hpf Carbamazepine 5.7 (4.0-12.0) ug/mL POC Glucose (70-110) mg/dL 05/05/18 05/05/18 05/03/18 Range/Units 08:32 08:32 21:02 WBC 6.8 (4.4-11.0) K/mm3 RBC 2.09 L (4.2-5.4) M/mm3 Hgb 6.9 L (12.0-15.0) g/dl Hct 22.8 L (37-47) % MCV 109.1 H (81-99) fL MCH 33.0 H (27.0-32.0) pg MCHC 30.3 L (32-36) g/gl RDW 17.4 H (11.6-14.6) % RDW Differential 66.1 H (35.1-43.9) fl Plt Count 121 L (150-450) K/mm3 MPV 12.2 H (6.2-12.0) fl Immature Gran % (Auto) 0.000 (0.0-0.9) % Neut % (Auto) 80.8 H (47-70) % Lymph % (Auto) 11.4 L (19-41) % [place] % (Auto) 6.6 (0-10) % Eos % (Auto) 0.9 (0-5) % Baso % (Auto) 0.3 (0-1) % Absolute Neuts (auto) 5.5 (2.0-7.7) X10^3/uL Absolute Lymphs (auto) 0.78 L (0.83-4.51) X10^3/ul Total Counted Not Reportable Nucleated RBC % (0-5) % Differential Comment SCANNED Polychromasia RARE Anisocytosis 1+ Absolute Retic (0-5) 10^3/uL Sodium 143 (136-145) mmol/L Potassium 3.8 (3.5-5.1) mmol/L Chloride 111 H (98-107) mmol/L Carbon Dioxide 20.0 L (21.0-32.0) mmol/L Anion Gap 12 (5-15) BUN 107 H* (7-18) mg/dL Creatinine 2.75 H (0.55-1.02) mg/dL Estim Creat Clear Calc 12.89 ml/min Est GFR (MDRD) Af Amer 22 L (>60) mL/min Est GFR (MDRD) Non-Af 18 L (>60) mL/min BUN/Creatinine Ratio 38.9 H (10-20) RATIO Glucose 89 (74-106) mg/dL Lactic Acid (0.4-2.0) mmol/L Calcium 7.6 L (8.5-10.1) mg/dL Phosphorus (2.5-4.9) mg/dL Magnesium 1.8 (1.6-2.6) mg/dL Total Bilirubin (0.20-1.00) mg/dL AST (15-37) U/L ALT (13-56) U/L Alkaline Phosphatase (45-117) U/L Total Creatine Kinase (26-192) U/L Troponin I (<0.045) ng/mL Total Protein (6.4-8.2) g/dL Albumin (3.2-5.0) g/dL Globulin (2.2-4.2) g/dL Albumin/Globulin Ratio (0.9-2.4) RATIO Urine Color (Yellow) Urine Clarity (Clear) Urine pH (5.0 - 8.0) Ur Specific [place] (1.002-1.030) Urine Protein (Negative) mg/dl Urine Glucose (UA) (Normal) mg/dl Urine Ketones (Negative) mg/dl Urine Occult Blood (Negative) /ul Urine Nitrite (Negative) Urine Bilirubin (Negative) mg/dL Urine Urobilinogen (Normal) mg/dl Ur Leukocyte Esterase (Negative) /ul Urine RBC (0-5) /hpf Urine WBC (0-5) /hpf Ur Squamous Epith Cells (5-10) /hpf Urine Bacteria (None Seen) /hpf Urine Mucus (<or=2+) /hpf Carbamazepine (4.0-12.0) ug/mL POC Glucose 167 H (70-110) mg/dL 05/03/18 05/03/18 05/03/18 Range/Units 20:40 20:40 17:00 WBC (4.4-11.0) K/mm3 RBC (4.2-5.4) M/mm3 Hgb (12.0-15.0) g/dl Hct (37-47) % MCV (81-99) fL MCH (27.0-32.0) pg MCHC (32-36) g/gl RDW (11.6-14.6) % RDW Differential (35.1-43.9) fl Plt Count (150-450) K/mm3 MPV (6.2-12.0) fl Immature Gran % (Auto) (0.0-0.9) % Neut % (Auto) (47-70) % Lymph % (Auto) (19-41) % [place] % (Auto) (0-10) % Eos % (Auto) (0-5) % Baso % (Auto) (0-1) % Absolute Neuts (auto) (2.0-7.7) X10^3/uL Absolute Lymphs (auto) (0.83-4.51) X10^3/ul Total Counted Nucleated RBC % (0-5) % Differential Comment Polychromasia Anisocytosis Absolute Retic (0-5) 10^3/uL Sodium 141 (136-145) mmol/L Potassium 5.6 H (3.5-5.1) mmol/L Chloride 110 H (98-107) mmol/L Carbon Dioxide 17.0 L (21.0-32.0) mmol/L Anion Gap 14 (5-15) BUN 103 H* (7-18) mg/dL Creatinine 3.46 H (0.55-1.02) mg/dL Estim Creat Clear Calc 10.25 ml/min Est GFR (MDRD) Af Amer 17 L (>60) mL/min Est GFR (MDRD) Non-Af 14 L (>60) mL/min BUN/Creatinine Ratio 29.8 H (10-20) RATIO Glucose 149 H (74-106) mg/dL Lactic Acid 4.9 H* (0.4-2.0) mmol/L Calcium 7.7 L (8.5-10.1) mg/dL Phosphorus (2.5-4.9) mg/dL Magnesium 2.1 (1.6-2.6) mg/dL Total Bilirubin 0.30 (0.20-1.00) mg/dL AST 252 H (15-37) U/L ALT 214 H (13-56) U/L Alkaline Phosphatase 80 (45-117) U/L Total Creatine Kinase (26-192) U/L Troponin I (<0.045) ng/mL Total Protein 5.5 L (6.4-8.2) g/dL Albumin 2.6 L (3.2-5.0) g/dL Globulin 2.9 (2.2-4.2) g/dL Albumin/Globulin Ratio 0.9 (0.9-2.4) RATIO Urine Color [place] (Yellow) Urine Clarity Clear (Clear) Urine pH 5.0 (5.0 - 8.0) Ur Specific [place] 1.025 (1.002-1.030) Urine Protein Negative (Negative) mg/dl Urine Glucose (UA) Normal (Normal) mg/dl Urine Ketones 5 H (Negative) mg/dl Urine Occult Blood 10 H (Negative) /ul Urine Nitrite Negative (Negative) Urine Bilirubin 1 H (Negative) mg/dL Urine Urobilinogen Normal (Normal) mg/dl Ur Leukocyte Esterase 25 H (Negative) /ul Urine RBC 0 SEEN (0-5) /hpf Urine WBC 0 SEEN (0-5) /hpf Ur Squamous Epith Cells 0-5 SEEN (5-10) /hpf Urine Bacteria 0 SEEN (None Seen) /hpf Urine Mucus 0 SEEN (<or=2+) /hpf Carbamazepine (4.0-12.0) ug/mL POC Glucose (70-110) mg/dL 05/03/18 05/03/18 05/03/18 Range/Units 15:45 15:45 15:45 WBC (4.4-11.0) K/mm3 RBC (4.2-5.4) M/mm3 Hgb (12.0-15.0) g/dl Hct (37-47) % MCV (81-99) fL MCH (27.0-32.0) pg MCHC (32-36) g/gl RDW (11.6-14.6) % RDW Differential (35.1-43.9) fl Plt Count (150-450) K/mm3 MPV (6.2-12.0) fl Immature Gran % (Auto) (0.0-0.9) % Neut % (Auto) (47-70) % Lymph % (Auto) (19-41) % [place] % (Auto) (0-10) % Eos % (Auto) (0-5) % Baso % (Auto) (0-1) % Absolute Neuts (auto) (2.0-7.7) X10^3/uL Absolute Lymphs (auto) (0.83-4.51) X10^3/ul Total Counted Nucleated RBC % (0-5) % Differential Comment Polychromasia Anisocytosis Absolute Retic (0-5) 10^3/uL Sodium 138 (136-145) mmol/L Potassium 5.6 H (3.5-5.1) mmol/L Chloride 108 H (98-107) mmol/L Carbon Dioxide 18.0 L (21.0-32.0) mmol/L Anion Gap 12 (5-15) BUN 107 H* (7-18) mg/dL Creatinine 3.58 H (0.55-1.02) mg/dL Estim Creat Clear Calc 10.40 ml/min Est GFR (MDRD) Af Amer 16 L (>60) mL/min Est GFR (MDRD) Non-Af 13 L (>60) mL/min BUN/Creatinine Ratio 29.9 H (10-20) RATIO Glucose 185 H (74-106) mg/dL Lactic Acid 4.1 H* (0.4-2.0) mmol/L Calcium 8.4 L (8.5-10.1) mg/dL Phosphorus (2.5-4.9) mg/dL Magnesium (1.6-2.6) mg/dL Total Bilirubin (0.20-1.00) mg/dL AST (15-37) U/L ALT (13-56) U/L Alkaline Phosphatase (45-117) U/L Total Creatine Kinase (26-192) U/L Troponin I < 0.015 (<0.045) ng/mL Total Protein (6.4-8.2) g/dL Albumin (3.2-5.0) g/dL Globulin (2.2-4.2) g/dL Albumin/Globulin Ratio (0.9-2.4) RATIO Urine Color (Yellow) Urine Clarity (Clear) Urine pH (5.0 - 8.0) Ur Specific [place] (1.002-1.030) Urine Protein (Negative) mg/dl Urine Glucose (UA) (Normal) mg/dl Urine Ketones (Negative) mg/dl Urine Occult Blood (Negative) /ul Urine Nitrite (Negative) Urine Bilirubin (Negative) mg/dL Urine Urobilinogen (Normal) mg/dl Ur Leukocyte Esterase (Negative) /ul Urine RBC (0-5) /hpf Urine WBC (0-5) /hpf Ur Squamous Epith Cells (5-10) /hpf Urine Bacteria (None Seen) /hpf Urine Mucus (<or=2+) /hpf Carbamazepine 10.7 (4.0-12.0) ug/mL POC Glucose (70-110) mg/dL 05/03/18 Range/Units 15:45 WBC 15.9 H (4.4-11.0) K/mm3 RBC 2.68 L (4.2-5.4) M/mm3 Hgb 8.9 L (12.0-15.0) g/dl Hct 29.5 L (37-47) % MCV 110.1 H (81-99) fL MCH 33.2 H (27.0-32.0) pg MCHC 30.2 L (32-36) g/gl RDW 17.0 H (11.6-14.6) % RDW Differential 64.0 H (35.1-43.9) fl Plt Count 208 (150-450) K/mm3 MPV 12.1 H (6.2-12.0) fl Immature Gran % (Auto) 0.200 (0.0-0.9) % Neut % (Auto) 90.9 H (47-70) % Lymph % (Auto) 4.0 L (19-41) % [place] % (Auto) 4.8 (0-10) % Eos % (Auto) 0.0 (0-5) % Baso % (Auto) 0.1 (0-1) % Absolute Neuts (auto) 14.4 H (2.0-7.7) X10^3/uL Absolute Lymphs (auto) 0.64 L (0.83-4.51) X10^3/ul Total Counted Not Reportable Nucleated RBC % 0.9 (0-5) % Differential Comment Polychromasia Anisocytosis Absolute Retic 0.15 (0-5) 10^3/uL Sodium (136-145) mmol/L Potassium (3.5-5.1) mmol/L Chloride (98-107) mmol/L Carbon Dioxide (21.0-32.0) mmol/L Anion Gap (5-15) BUN (7-18) mg/dL Creatinine (0.55-1.02) mg/dL Estim Creat Clear Calc ml/min Est GFR (MDRD) Af Amer (>60) mL/min Est GFR (MDRD) Non-Af (>60) mL/min BUN/Creatinine Ratio (10-20) RATIO Glucose (74-106) mg/dL Lactic Acid (0.4-2.0) mmol/L Calcium (8.5-10.1) mg/dL Phosphorus (2.5-4.9) mg/dL Magnesium (1.6-2.6) mg/dL Total Bilirubin (0.20-1.00) mg/dL AST (15-37) U/L ALT (13-56) U/L Alkaline Phosphatase (45-117) U/L Total Creatine Kinase (26-192) U/L Troponin I (<0.045) ng/mL Total Protein (6.4-8.2) g/dL Albumin (3.2-5.0) g/dL Globulin (2.2-4.2) g/dL Albumin/Globulin Ratio (0.9-2.4) RATIO Urine Color (Yellow) Urine Clarity (Clear) Urine pH (5.0 - 8.0) Ur Specific [place] (1.002-1.030) Urine Protein (Negative) mg/dl Urine Glucose (UA) (Normal) mg/dl Urine Ketones (Negative) mg/dl Urine Occult Blood (Negative) /ul Urine Nitrite (Negative) Urine Bilirubin (Negative) mg/dL Urine Urobilinogen (Normal) mg/dl Ur Leukocyte Esterase (Negative) /ul Urine RBC (0-5) /hpf Urine WBC (0-5) /hpf Ur Squamous Epith Cells (5-10) /hpf Urine Bacteria (None Seen) /hpf Urine Mucus (<or=2+) /hpf Carbamazepine (4.0-12.0) ug/mL POC Glucose (70-110) mg/dL hospice Operations: None Procedures: None Summary of Care Provided: The patient is a 72-year-old female with a past medical history of R MCA stroke and Left MCA stroke , diabetes mellitus type 2, hypertension, trigeminal neuralgia, meningioma (excised with gamma knife therapy), chronic renal failure stage III, pulmonary hypertension and hypothyroidism who is a resident of [facility]. she was transferred to [facility] after she failed to progress in rehab. She is chronically confused and disoriented. She was brought to the emergency department at [facility] on 05/03/2018 with altered level of consciousness. Her stated that she had been more lethargic the past few days and was not eating or drinking. She was diagnosed with acute on chronic renal failure with hyperkalemia. She was admitted to the hospital even though she is DNR CC. The ED physician called hospice to see if she could be admitted to the inpatient unit and the hospice community liaison physician stated that he felt the bradycardia and renal failure could be treated and refused transfer to hospice. The hospice physician unfortunately did not get the info that she had recent BL MCA strokes and failed rehab. She has been persistently confused and disoriented and at times very agitated. She has no quality of life and is DNR CC. When this was discussed with Dr. Cooley and Dr. Coy they felt she was appropriate for the hospice center for pain control since she has a hx of trigeminal neuralgia and chronic pain. She was transferred to the hospice inpt unit for sx management. This note was generated with [employer] dictation software. It may contain incorrect words, spelling, and punctuation that were not noted in checking the note before signing. - Physical Exam Vital Signs Temp Pulse Resp BP Pulse Ox 99.0 F 70 20 H 124/48 H 98 05/05/18 14:00 05/05/18 14:00 05/05/18 14:00 05/05/18 14:00 05/05/18 14:00 Oxygen Flow Rate (L/min) 2 Oxygen Delivery Method Nasal Cannula Weight: 173 lb Body Mass Index (BMI) 33.7 Finger Stick Blood Glucose 134 Microbiology Past 72 Hours 05/03/18 17:00 Urine Culture - Final Urine Catheter - Catheter Escherichia coli Streptococcus mitis/ oralis Home Medications: Medications to take at Discharge Levothyroxine [Synthroid] 100 mcg PO DAILY 09/12/16 ferrous sulfate 325 mg (65 mg iron) tablet 325 mg PO BID tab 12/02/17 Atorvastatin Calcium [Lipitor] 80 mg PO QHS 02/02/18 Isosorbide Mononitrate [Imdur] 60 mg PO QHS 02/02/18 Acetaminophen [Tylenol] 650 mg PO Q4H PRN PRN 03/30/18 Cyanocobalamin (Vitamin B-12) [B-12] 500 mcg PO DAILY 03/30/18 Metoprolol Tartrate 12.5 mg PO BID 03/30/18 Carbamazepine 200 mg PO QHS 05/03/18 Carbamazepine [Carbamazepine ER] 100 mg PO DAILY 05/03/18 Cholecalciferol (VIT D3) [Vitamin D] 1,000 unit PO DAILY 05/03/18 Escitalopram Oxalate [Lexapro] 10 mg PO DAILY 05/03/18 Insulin Aspart [Novolog Flexpen (BKC)] See Protocol SC TIDCM 05/03/18 Lisinopril [Zestril] 40 mg PO DAILY 05/03/18 Metoclopramide HCl [Reglan] 5 mg PO BID 05/03/18 Modafinil [Provigil] 200 mg PO DAILY@0600 05/03/18 Nut.tx.gluc.intoler,Lac-Fr,Soy [Glucerna] 120 ml PO 4X/DAY 05/03/18 Nystatin Powder [Mycostatin Powder] 1 applic TOPICAL BID 05/03/18 Omeprazole 40 mg PO DAILY 05/03/18 Ondansetron [Zofran Odt] 4 mg PO Q6H PRN PRN 05/03/18 Senna/Docusate Sodium [Senokot-S] 2 tablet PO BID 05/03/18 Primary Care Physician: Twan Coy MD [Primary Care Provider] - Disposition: Hospice Medical Facility Minutes spent on discharge:: 40 Medical Necessity - Tobacco Use Smoking Status: Never smoker Tobacco Use: Non-smoker Meaningful Use Info Meaningful Use Diagnoses (Choose all that apply): None applicable Code Visit Inpatient E&M: 43071 Disch Hosp
== END 2018-05-05 15:51 | disposition hospice, inpatient (51) | DRG 682 ==
LOC: ED 17:20 → MS3 17:22 → ICU 05-04 10:24
PROVIDERS: Admitting Provider Internal Medicine; Emergency Provider Emergency Medicine; Family Provider Family Medicine; PCP Family Medicine; Referring Provider Internal Medicine; Visit Provider Internal Medicine
DX: I12.9 Hypertensive chronic kidney disease with stage 1 through stage 4 chronic kidney disease, or unspecified chronic kidney disease (principal); G93.41 Metabolic encephalopathy; N17.8 Other acute kidney failure; I44.2 Atrioventricular block, complete; E87.5 Hyperkalemia; E86.0 Dehydration; E11.22 Type 2 diabetes mellitus with diabetic chronic kidney disease; D63.1 Anemia in chronic kidney disease; N18.3 Chronic kidney disease, stage 3 (moderate); R34 Anuria and oliguria; R00.1 Bradycardia, unspecified; I65.22 Occlusion and stenosis of left carotid artery; I35.0 Nonrheumatic aortic (valve) stenosis; I27.20 Pulmonary hypertension, unspecified; I36.1 Nonrheumatic tricuspid (valve) insufficiency; I34.0 Nonrheumatic mitral (valve) insufficiency; I34.1 Nonrheumatic mitral (valve) prolapse; I25.10 Atherosclerotic heart disease of native coronary artery without angina pectoris; E78.5 Hyperlipidemia, unspecified; E03.9 Hypothyroidism, unspecified; G50.0 Trigeminal neuralgia; G89.29 Other chronic pain; Z66 Do not resuscitate; Z95.5 Presence of coronary angioplasty implant and graft; Z79.4 Long term (current) use of insulin; Z79.899 Other long term (current) drug therapy; Z86.73 Personal history of transient ischemic attack (TIA), and cerebral infarction without residual deficits
CPT/HCPCS: 36415; 71045; 80048; 80053; 80156; 81001; 82550; 82962; 83605; 83735; 84100; 84484; 85025; 87040; 87077; 87086; 87088; 87186; 93005; 99285; J7030; J7040; J7120; A4216; J0744; J2405